=== PATIENT | male | born 1935 | race American Indian/Alaskan Native ===

== ENCOUNTER 2016-07-18 02:29 | Observation (INO) | payer MEDICARE, OTHER ==
[2016-07-18 02:43] VITALS: BMI 29.5
--- NOTE | 2016-07-18 02:54 | ED PDOC ---
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 Patient states he used his Symbicort inhaler at home with minimal relief. Patient denies any fever, chills, nausea, vomiting, diarrhea, urinary symptoms, back pain, neck pain, headache, dizziness, or any other complaints. Symptom Onset: Gradual Symptom Course: Unchanged Activities at Onset: Rest, Light Context: Home Past Medical History - Provider Review Nursing Documentation Reviewed: Yes - Pulmonary Hx Chronic Obstructive Pulmonary Disease (COPD): Yes - Neurological Hx Vertigo: Yes - HEENT Hx HEENT Disorder: No - Renal Hx Renal Disorder: No - Endocrine/Metabolic Hx Hypothyroidism: Yes - Hematological/Oncological Hx Blood Disorders: No - Integumentary Hx Dermatological Disorder: No - Musculoskeletal/Rheumatological Hx Musculoskeletal Disorders: No - Gastrointestinal Hx Gastrointestinal Disorders: No - Genitourinary/Gynecological Hx Prostate Cancer: Yes - Psychiatric Hx Psychophysiologic Disorder: No Hx Substance Use: No Family/Social History - Physician Review Nursing Documentation Reviewed: Yes Family/Social History: No Known Family HX Smoking Status: Never Smoked Hx Alcohol Use: Yes Frequency of alcohol use: Socially Hx Substance Use: No Allergies/Home Meds Allergies/Adverse Reactions: Allergies No Known Allergies Allergy (Verified 07/18/16 02:43) Home Medications: Home Meds Medication Instructions Recorded Confirmed Albuterol 0.083% [Albuterol 0.083% 1 inhaler INH PRN PRN 07/18/16 07/18/16 Inhal Geni (2.5 mg/3 ml) UD] Budesonide/Formoterol Fumarate 1 inhaler IH DAILY 07/18/16 07/18/16 [Symbicort 160-4.5 Mcg Inhaler] Levothyroxine [Levoxyl] 0.125 mg PO DAILY 07/18/16 07/18/16 Simvastatin [Zocor] 40 mg PO DAILY 07/18/16 07/18/16 Review of Systems - Physician Review All systems were reviewed & negative as marked: Yes - Review of Systems Constitutional: Normal. absent: Fevers Eyes: Normal ENT: Normal Respiratory: SOB. absent: Cough Cardiovascular: Chest Pain (+chest tightness) Gastrointestinal: Normal. absent: Abdominal Pain, Diarrhea, Nausea, Vomiting Genitourinary Male: Normal. absent: Dysuria, Frequency, Hematuria, Urinary Output Changes Musculoskeletal: Normal. absent: Back Pain, Neck Pain Skin: Normal. absent: Rash Neurological: Normal. absent: Headache, Dizziness Endocrine: Normal Hemo/Lymphatic: Normal Psychiatric: Normal Physical Exam Vital Signs Reviewed: Yes Vital Signs Temp Pulse Resp BP Pulse Ox 07/18/16 05:26 64 18 132/76 98 07/18/16 02:57 18 99 07/18/16 02:42 97.9 F 78 18 120/77 97 Temperature: Afebrile Blood Pressure: Normal Pulse: Regular Respiratory Rate: Normal Appearance: Positive for: Well-Appearing, Non-Toxic, Comfortable Pain Distress: None Mental Status: Positive for: Alert and Oriented X 3 - Systems Exam Head: Present: Atraumatic, Normocephalic Pupils: Present: PERRL Extroacular Muscles: Present: EOMI Conjunctiva: Present: Normal Mouth: Present: Moist Mucous Membranes Neck: Present: Normal Range of Motion Respiratory/Chest: Present: Decreased Breath Sounds. No: Respiratory Distress, Accessory Muscle Use Cardiovascular: Present: Regular Rate and Rhythm, Normal S1, S2. No: Murmurs Abdomen: Present: Normal Bowel Sounds. No: Tenderness, Distention, Peritoneal Signs Back: Present: Normal Inspection Upper Extremity: Present: Normal Inspection. No: Cyanosis, Edema Lower Extremity: Present: Normal Inspection. No: Edema Neurological: Present: GCS=15, CN II-XII Intact, Speech Normal Skin: Present: Warm, Dry, Normal Color. No: Rashes Psychiatric: Present: Alert, Oriented x 3, Normal Insight, Normal Concentration Medical Decision Making ED Course and Treatment: 07/18/16 02:54 Impression: 80 year old male complaining of shortness of breath and chest tightness. Differential Diagnosis include but are not limited to: COPD vs. pneumonia vs. ACS vs. CHF Plan: -- EKG -- Chest X-ray -- Labs, cardiac enzymes, BNP, blood cultures, VBG -- Duoneb -- Solu-medrol -- Reassess and disposition Progress Notes: Reviewed EKG, NSR at [address] Non-specific ST/T wave changes. 07/18/16 05:20 Reviewed radiology, Chest X-ray shows no acute processes. 07/18/16 05:[address] Sheth, who is aware and agrees with plan. Accepts pt in to her service. Pt will go to [facility] observation for COPD. Pt is no acute distress. Discussed results and hospital observation plan with pt , who is aware and verbalizes understanding. - Lab Interpretations Lab Results: 07/18/16 03:27 07/18/16 03:27 Lab Results 07/18/16 03:27: Sodium 138, Chloride 104, Potassium 3.9, Carbon Dioxide 28, Anion Gap 10, BUN 15, Creatinine 0.6, Est GFR ( Amer) > 60, Est GFR (Non- Af Amer) > 60, Random Glucose 103, Calcium 9.5, Total Bilirubin 0.6, AST 17, ALT 24, Alkaline Phosphatase 130, Lactate Dehydrogenase 436, Total Creatine Kinase 59, Troponin I < 0.01, NT-Pro-B Natriuret Pep 127, Total Protein 7.0, Albumin 3.9, Globulin 3.1, Albumin/Globulin Ratio 1.3 07/18/16 03:27: pO2 197 H, VBG pH 7.40, VBG pCO2 48.0, VBG HCO3 29.7 H, VBG Total CO2 31.2 H, VBG O2 Sat (Calc) 99.0 H, VBG Base Excess 4.0 H, VBG Potassium 3.9, Sodium 137.0, Chloride 109.0 H, Glucose 105, Lactate 1.2, FiO2 21.0, Venous Blood Potassium 3.9 07/18/16 03:27: WBC 6.0, RBC 3.87, Hgb 11.8 L, Hct 35.8 L, MCV 92.5, MCH 30.5, MCHC 33.0, RDW 13.3, Plt Count 144, MPV 12.1 H, Gran % 69.3 H, Lymph % (Auto) 23.3, [place] % (Auto) 7.0 H, Eos % (Auto) 0.2 L, Baso % (Auto) 0.2, Gran # 4.13, Lymph # 1.4, [place] # 0.4, Eos # 0.0, Baso # 0.01 I have reviewed the lab results: Yes - RAD Interpretation Radiology Orders: 07/18/16 03:02 CHEST PORTABLE [RAD] Stat Weight Loss Counselor: ED Physician - EKG Interpretation Interpreted by ED Physician: Yes Type: 12 lead EKG - Medication Orders Current Medication Orders: Acetaminophen (Tylenol 325mg Tab) 650 mg PO Q4H PRN PRN Reason: Pain, Mild (1-3) Albuterol/Ipratropium (Duoneb 3 Mg/0.5 Mg (3 Ml) Ud) 3 ml IH Q4H PRN PRN Reason: Shortness of Breath Levofloxacin/Dextrose (Levaquin 750mg) 750 mg in 150 mls @ 100 mls/hr IVPB STAT STA Stop: 07/18/16 07:07 Last Admin: 07/18/16 06:01 Dose: 100 mls/hr Sodium Chloride (Sodium Chloride 0.9%) 1,000 mls @ 100 mls/hr IV .Q10H STA Stop: 07/18/16 15:44 Discontinued Medications Albuterol/Ipratropium (Duoneb 3 Mg/0.5 Mg (3 Ml) Ud) 3 ml IH Q15M KRYS Stop: 07/18/16 03:46 Last Admin: 07/18/16 03:50 Dose: 3 ml Methylprednisolone (Solu-Medrol) 125 mg IVP ONCE ONE Stop: 07/18/16 03:03 Last Admin: 07/18/16 03:33 Dose: 125 mg - Shortyibsurinder Statement The provider has reviewed the documentation as recorded by the Latisha Ash All medical record entries made by the Latisha were at my direction and personally dictated by me. I have reviewed the chart and agree that the record accurately reflects my personal performance of the history, physical exam, medical decision making, and the department course for this patient. I have also personally directed, reviewed, and agree with the discharge instructions and disposition. Disposition/Present on Arrival - Present on Arrival Any Indicators Present on Arrival: No History of DVT/PE: No History of Uncontrolled Diabetes: No Urinary Catheter: No History of Decub. Ulcer: No History Surgical Site Infection Following: None - Disposition Have Diagnosis and Disposition been Completed?: Yes Diagnosis: Chronic obstructive lung disease Disposition: HOSPITALIZED Disposition Time: 06:00 Condition: FAIR
[2016-07-18] MEDS: Albuterol-Ipratrop 3 mg / 0.5 (3 ml) UD IH SCH ×3 (03:15→03:50)
[2016-07-18 03:35] LABS: ADD MANUAL DIFF? NO
[2016-07-18 03:50] LABS: ALB/GLOB RATIO 1.3 (1.1-1.8); ALKALINE PHOSPHATASE 130 U/L (38-133); ALT/SGPT 24 U/L (7-56); AST/SGOT 17 U/L (15-59); BASO # 0.01 K/mm3 (0.0-2.0); BASO % 0.2 % (0.0-3.0); BILIRUBIN,TOTAL 0.6 mg/dL (0.2-1.3); BLOOD UREA NITROGEN 15 mg/dL (7-21); CALCIUM 9.5 mg/dL (8.4-10.5); CARBON DIOXIDE 28 mmol/L (21-33); CHLORIDE 104 mmol/L (98-107); EOS % 0.2 % (1.5-5.0); GFR AFRICAN-AMERICAN > 60; GLUCOSE,RANDOM 103 mg/dL (70-110); GRAN # 4.13 (1.4-6.5); GRAN % 69.3 % (50.0-68.0); HEMATOCRIT 35.8 % (42.0-52.0); LYMPH # 1.4 (1.2-3.4); LYMPH % 23.3 % (22.0-35.0); MEAN CELL VOLUME 92.5 fL (80.0-105.0); MEAN CORPUSCULAR HEMOGLOBIN 30.5 pg (25.0-35.0); MEAN PLATELET VOLUME 12.1 fl (7.0-11.0); MONO # 0.4 (0.1-0.6); PLATELET COUNT 144 10^3/uL (120.0-450.0); POTASSIUM 3.9 mmol/L (3.6-5.0); RED CELL DISTRIBUTION WIDTH 13.3 % (11.5-14.5); SODIUM 138 mmol/L (132-148)
[2016-07-18 04:22] LABS: TROPONIN I < 0.01 ng/mL
[2016-07-18] MEDS ORDERED: levoFLOXacin 750 mg in D5W 750 MG/150 ML BAG IVPB STA (05:38)
[2016-07-18] MEDS ORDERED: Sodium Chloride 0.9% 1,000 ML IV STA (05:45)
[2016-07-18] MEDS ORDERED: Albuterol-Ipratrop 3 mg / 0.5 (3 ml) UD IH PRN (05:45)
[2016-07-18] MEDS: Levothyroxine 125 MCG TAB PO SCH (08:02)
--- NOTE | 2016-07-18 08:02 | RAD ---
HISTORY: sob COMPARISON: No prior. FINDINGS: LUNGS: There is a large bulla in the right upper lobe. The lungs are otherwise clear PLEURA: No significant pleural effusion identified, no pneumothorax apparent. CARDIOVASCULAR: Normal. OSSEOUS STRUCTURES: No significant abnormalities. VISUALIZED UPPER ABDOMEN: Normal. OTHER FINDINGS: None. IMPRESSION: No active disease.
[2016-07-18] MEDS: MethylPREDNISolone 40 mg Vial IVP SCH ×2 (11:17→22:10)
[2016-07-18] MEDS: Non Formulary Medication (Budesonide/Formoterol Fumarate [Symbicort 160-4.5 Mcg Inhaler] 1 IH SCH (11:18)
[2016-07-18] MEDS: levoFLOXacin 500 mg in D5W 500 MG/100 ML BAG IVPB SCH (11:18)
--- NOTE | 2016-07-18 14:32 | CARD ---
APPROVED REPORT EKG Measurement Heart [id number] <Conclusion> Normal sinus rhythm Left anterior fascicular block Nonspecific T wave abnormality Abnormal ECG
--- NOTE | 2016-07-18 22:34 | CON ---
DATE: 07/18/2016 REFERRING PHYSICIAN: Dr. Sheht. REASON FOR CONSULT: Cough, shortness of breath, exacerbation of chronic lung disease, and sleep apne a syndrome. HISTORY OF PRESENT ILLNESS: This is an 80-year-old gentleman with past medical history significant f or chronic obstructive lung disease, hypothyroidism, hyperlipidemia, history of recurrent vertigo, li ghtheadedness, comes into Emergency Room with cough, shortness of breath, rhinitis. Admitted to have loud snoring at nighttime, daytime sleepy and tired. Received IV and inhaled bronchodilator with so me benefit of persistent symptoms. Now admitted for continued workup. Usually followed at . PAST MEDICAL HISTORY: Obstructive lung disease, hypothyroid, hyperlipidemia, recurrent vertigo, hist ory of prostate cancer. SOCIAL HISTORY: Stopped smoking about a year ago or so. Denied any alcohol use. FAMILY HISTORY: No significant cardiopulmonary disease reported. ALLERGIES: None known. MEDICATIONS: He is on Antivert 12.5 mg 3 times a day p.r.n. Also getting Symbicort 160/4.5 one puff twice a day, DuoNeb q. 4 hours p.r.n., 500 mcg daily, Lipitor 20 mg daily, Pepcid 40 mg daily, Solu-Medrol 40 mg q. 12 hours, Synthroid 125 mg daily, Tylenol p.r.n. basis. REVIEW OF SYSTEMS: Has lightheadedness, rhinitis, cough, shortness of breath. No chest pain, no abd ominal pain, no dysuria. No leg pain or leg swelling. Admits to have snoring, daytime sleepy and ti red. PHYSICAL EXAMINATION: GENERAL: His detailed exam, lying in the bed, mild distress secondary to cough and shortness of fabricio th. VITAL SIGNS: Temp is 98, heart rate is 69, respiratory rate is 18, blood pressure 155/91, pulse ox 9 5% on 2 L nasal cannula. HEENT: Moist mucous membranes. Crowded airway. Mallampati score is 4. NECK: Supple, JVD. LUNGS: Have a prolonged expiratory phase with wheezing. HEART: S1 and S2. ABDOMEN: Soft, nontender. No organomegaly. EXTREMITIES: There is no edema. NEUROLOGIC: Awake, alert, follows simple commands. LABORATORY DATA: Shows hemoglobin 11.8, hematocrit 35.8, WBC 6.0, platelet is 144. VBG shows pH 7.4 0, pCO2 48, O2 197. Sodium 138, potassium 3.9, chloride 104, bicarbonate 28, BUN 15, creatinine 0.6, glucose 103, calcium 9.5, total bili 0.6, AST 17, ALT 24, alk phos is 130. Troponin less than 0.01, proBNP 127, albumin is 3.9. Chest x-ray done today shows no infiltrate or effusion. IMPRESSION AND PLAN: Chronic obstructive lung disease, may have obstructive sleep apnea syndrome, hy pothyroid, hyperlipidemia, hypertension. Case discussed with Dr. Sheth. with IV and inhaled bronchodilator. Gastric prophylaxis and deep vein thrombosis prophylaxis. Need attended sleep stud y. Lightheadedness could be affecting the secondary to sleep apnea syndrome. Will get CT scan of the head without contrast to rule out any central nervous system abnormality. Thank you, and will follow. Christy Bartlett MD cc: [id number] TT: 07/18/2016 22:33:36 Confirmation # [id number] Dictation # [id number] dn
[2016-07-19] MEDS: Levothyroxine 125 MCG TAB PO SCH (06:59)
--- NOTE | 2016-07-19 08:17 | HP ---
CHIEF COMPLAINT: Shortness of breath. HISTORY OF PRESENT ILLNESS: The patient is an 80-year-old male, former smoker, whose past medical history has COPD, hypothyroidism, hypercholesterolemia, asthma, vertigo, came to the Emergency Room Department complaining of shortness of breath associated with chest tightness since yesterday. The patient states that he took his Symbicort inhaler at home with no relief. The patient denies any fever, chills, nausea, vomiting, or diarrhea. no back pain, neck pain, headache, dizziness or any complaints. PAST MEDICAL HISTORY: COPD, hypothyroidism, prostate cancer. FAMILY HISTORY: Father and mother noncontributory. HABITS: Never smoked. Alcohol yes socially. Substance abuse no. ALLERGIES: The patient is not allergic with any medications. HOME MEDICATIONS: Albuterol, Symbicort, Zocor. REVIEW OF SYSTEMS: The patient is seen and examined on the bedside. Looks comfortable. No nausea, vomiting, or diarrhea. No hematuria or hematochezia. No swelling of the leg. No chest pain, no palpitation. Having shortness of breath, coughing and wheezing. PHYSICAL EXAMINATION: VITAL SIGNS: Temperature 97.9, pulse 78, respiratory rate 18, blood pressure 120/77, and pulse oximetry 97. HEENT: Head normocephalic, atraumatic. Eyes: PERRLA. Extraocular muscles intact. Conjunctivae clear. Nose patent. Mucous membranes moist. NECK: Supple. No carotid bruit, JVD or thyromegaly. CHEST: Bilaterally symmetrical. HEART: S1, S2 positive. LUNGS: Clear to auscultation. ABDOMEN: Soft. Bowel sounds present. No organomegaly. EXTREMITIES: No edema, no cyanosis. NEUROLOGIC: The patient is awake, alert, moving all 4 extremities. No focal deficits. LABORATORY DATA: White blood cell 6.0, hemoglobin 11.9, hematocrit 35.8, platelets 144. Sodium 138, potassium 3.9, BUN 15, creatinine 0.9, glucose 103. ASSESSMENT AND PLAN: The patient is an 80-year-old male with anemia, came with exacerbation of chronic obstructive pulmonary disease, asthma, seen by loading manager, Dr. Bartlett. Had a length of time discussion with that. The patient has a history of obstructive lung disease, hypothyroidism, hypercholesterolemia, recurrent vertigo, getting treatment from the hospitalist , history of prostate cancer, obstructive sleep apnea syndrome. Length of time discussion done with Dr. Bartlett and case discussed with the patient, started on inhaled bronchodilators, steroids and gastric prophylaxis. Deep venous thrombosis prophylaxis. We will get CAT scan of the head without contrast to rule out any central nervous system abnormality as per Dr. Bartlett. Gastrointestinal and deep venous thrombosis prophylaxis. Repeat labs. We will follow up. Megan Sheth MD cc: [id number] TT: 07/19/2016 08:17:07 gus MTDOlivier
--- NOTE | 2016-07-19 08:58 | CT ---
PROCEDURE: CT HEAD WITHOUT CONTRAST. HISTORY: persistent headache COMPARISON: None available. TECHNIQUE: Axial computed tomography images were obtained through the head/brain without intravenous contrast. Radiation dose: Total exam DLP = 580.67 mGy-cm. This CT exam was performed using one or more of the following dose reduction techniques: Automated exposure control, adjustment of the mA and/or kV according to patient size, and/or use of iterative reconstruction technique. FINDINGS: HEMORRHAGE: No intracranial hemorrhage. BRAIN: No mass effect or edema. Mild diffuse age-appropriate cerebral atrophy. Mild to moderate periventricular white matter lucency with patchy foci of deep and subcortical white matter lucency, consistent with microvascular white matter ischemic change. VENTRICLES: Unremarkable. No hydrocephalus. CALVARIUM: Unremarkable. PARANASAL SINUSES: Unremarkable as visualized. No significant inflammatory changes. MASTOID AIR CELLS: Unremarkable as visualized. No inflammatory changes. OTHER FINDINGS: None. IMPRESSION: No intracranial mass, hemorrhage or evidence of acute infarct. Age-appropriate involutional change.
[2016-07-19] MEDS: levoFLOXacin 500 mg in D5W 500 MG/100 ML BAG IVPB SCH (10:23)
[2016-07-19] MEDS: Non Formulary Medication (Budesonide/Formoterol Fumarate [Symbicort 160-4.5 Mcg Inhaler] 1 IH SCH (10:23)
[2016-07-19] MEDS: Enoxaparin 40 mg Syringe SC SCH (10:23)
[2016-07-19] MEDS: MethylPREDNISolone 40 mg Vial IVP SCH ×2 (10:24→21:29)
[2016-07-19] MEDS ORDERED: MethylPREDNISolone 40 mg Vial IVP SCH (21:26)
--- NOTE | 2016-07-19 23:54 | PN ---
DATE: 07/19/2016 REFERRING PHYSICIAN: Dr. Sheth. SUBJECTIVE: He is out of bed to chair, night was unremarkable, feels better, decreased cough, decreased shortness of breath, admits to loud snoring and daytime sleepy and tired. No nausea, no vomiting, diarrhea. No leg pain or leg swelling. OBJECTIVE: GENERAL: No acute distress. VITAL SIGNS: Temperature is 98, heart rate is 67, respiratory rate is 20, blood pressure 134/81, pul se ox 100% on nasal cannula. HEENT: Moist mucous membranes. Crowded airway. Mallampati score is 4. NECK: Supple. No JVD. LUNGS: Has a fair airflow with few rhonchi. HEART: S1, S2. ABDOMEN: Soft, nontender. No organomegaly. EXTREMITIES: There is no edema. NEUROLOGIC: Awake, alert, follows simple commands. MEDICATIONS: 12.5 mg 3 times a day, DuoNeb q. 4 hours p.r.n., Levaquin 500 mg daily, Lipitor 2 0 mg daily, Lovenox 40 mg daily, Norvasc 5 mg daily, Pepcid 40 mg daily, Solu-Medrol 20 mg q. 12 hour s, Synthroid 125 mcg daily, Tylenol p.r.n. basis. LABORATORY DATA: Microbiology: Blood cultures have been negative. IMPRESSION AND PLAN: Chronic obstructive lung disease, may have obstructive sleep apnea syndrome, hy pothyroid, hyperlipidemia, hypertension. I spoke to the floor nurse practitioner today. Continue So chiqui-Medrol, antibiotics and bronchodilator. Sleep apnea precaution. Gastric prophylaxis. Deep venou s thrombosis prophylaxis. Discharge planning in the morning. Outpatient attended sleep study and pu lmonary function test. Follow up with Dr. Sheth. Thank you and will follow with you. Christy Bartlett MD cc: [id number] TT: 07/19/2016 23:53:04 Confirmation # [id number] Dictation # [id number] mn
--- NOTE | 2016-07-20 06:23 | PN ---
DATE: 07/19/2016 SUBJECTIVE: The patient was seen and examined on the bedside, looks comfortable. No nausea, vomitin g, or diarrhea. No hematuria or hematochezia. No swelling of the leg. No chest pain, no palpitatio n, no headache, no dizziness. I saw him having dinner, feels comfortable. Cough is getting better. Shortness of breath is getting better. PHYSICAL EXAMINATION: VITAL SIGNS: Temperature is 97.6, pulse 67, respiratory rate 22, blood pressure 134/81. HEENT: Head normocephalic, atraumatic. Eyes: PERRLA. Extraocular muscles intact. Conjunctivae cl ear. Nose patent. Mucous membranes moist. NECK: Supple. No carotid bruit, JVD or thyromegaly. CHEST: Bilaterally symmetrical. HEART: S1, S2 positive. LUNGS: Clear to auscultation. ABDOMEN: Soft. Bowel sounds present. No organomegaly. EXTREMITIES: No edema, no cyanosis. NEUROLOGIC: The patient is awake, alert, moving all 4 extremities. No focal deficits. MEDICATIONS: Antivert, albuterol, Levaquin, Lipitor, Lovenox, Norvasc, famotidine, Solu-Medrol, Synt hroid, Tylenol. LABORATORY DATA: White blood cells 6.0, hemoglobin 11.8, hematocrit 35.8, and platelets 144. Sodium 139, potassium 3.9, BUN 15, creatinine 0.7, AST 17, ALT 24. ASSESSMENT AND PLAN: The patient is an 80-year-old male with anemia, history of obstructive lung dis ease, hypothyroidism, hypercholesterolemia, recurrent vertigo, history of prostate cancer, obesity, c jesus with shortness of breath, started on IV bronchodilators. Gastric prophylaxis, deep vein thrombos is prophylaxis. Discussion done with Dr. Bartlett. The patient is feeling better. We will decrease t he steroids. Gastrointestinal and deep venous thrombosis prophylaxis. Repeat labs. We will follow up. Megan Sheth MD cc: [id number] TT: 07/20/2016 06:22:20 Confirmation # [id number] Dictation # [id number] tn
[2016-07-20 07:19] LABS: CHOLESTEROL 184 mg/dL (130-200)
[2016-07-20] MEDS: Levothyroxine 125 MCG TAB PO SCH (07:43)
[2016-07-20 08:27] VITALS: BP 116/79; PULSE 67; RESP 20; TEMP 97.8; O2SAT 97
[2016-07-20] MEDS ORDERED: MethylPREDNISolone 40 mg Vial IVP SCH (09:03)
[2016-07-20] MEDS: Enoxaparin 40 mg Syringe SC SCH (09:53)
[2016-07-20] MEDS: levoFLOXacin 500 mg in D5W 500 MG/100 ML BAG IVPB SCH (09:56)
[2016-07-20] MEDS: Non Formulary Medication (Budesonide/Formoterol Fumarate [Symbicort 160-4.5 Mcg Inhaler] 1 IH SCH (10:00)
--- NOTE | 2016-07-20 15:49 | PN ---
DATE: 07/20/2016 REFERRING PHYSICIAN: Dr. Sheth. SUBJECTIVE: He is sitting side of the bed, having lunch. Night was unremarkable. Breathing getting better. Decreased shortness of breath and cough. No hemoptysis, no emesis, no hematuria, no diarrh ea reported. Admitted to have loud snoring. Daytime sleepy and tired. OBJECTIVE: GENERAL: No acute distress. VITAL SIGNS: Temp is 98, heart rate is 67, respiratory rate is 20, blood pressure ____/79, pulse ox 97% on nasal cannula. HEENT: Moist mucous membranes. Crowded airway. Mallampati score is 4. NECK: Supple. No JVD. LUNGS: Have fair airflow with a few rhonchi. HEART: S1, S2. ABDOMEN: Soft, nontender. No organomegaly. EXTREMITIES: There is no edema. NEUROLOGIC: Awake, alert, follows simple command. MEDICATIONS: He is on Antivert 12.5 mg 3 times a day, also on DuoNeb q. 6 hours, Levaquin 500 mg emperatriz ly, Lipitor 20 mg daily, Lovenox 40 mg daily, Norvasc 5 mg daily, Pepcid 40 mg at bedtime, Solu-Medro l 20 mg q. 12 hours, Synthroid 125 mcg daily, Tylenol p.r.n. basis. LABORATORY DATA: Reviewed and noted. Hemoglobin A1c 6.6. Cholesterol 184. TSH is 1.52. MICROBIOLOGY: Blood culture has been negative. IMPRESSION AND PLAN: Chronic obstructive lung disease, may have obstructive sleep apnea syndrome, hy pothyroid, hyperlipidemia, hypertension. Discharge planning. May change to Medrol Dosepak, doxycycl ine for another 5 days, p.o. and inhaled bronchodilator. Outpatient PFT and attended sleep study. F all precaution. Christy Bartlett MD cc: [id number] TT: 07/20/2016 15:47:58 Confirmation # [id number] Dictation # [id number] mn
--- NOTE | 2016-07-21 08:03 | DS ---
CHIEF COMPLAINT: Shortness of breath. HISTORY OF PRESENT ILLNESS: The patient, a , an 80-year-old male, former smoker, with past me dical history of COPD, hypothyroidism, hypercholesterolemia, asthma, vertigo, came to the Emergency R o Department complaining of shortness of breath associated with chest tightness since 1 day before admission. The patient stated that he took his Symbicort inhaler at home with no relief. The patien t failed outpatient treatment; that is why he was admitted. Had CAT scan of the head. Seen by pulmo nologist, Dr. Bartlett. Had chest x-ray. Got tapering dose of Solu-Medrol, antibiotics. Got better. Discharged home on 07/20/2016. Will follow up with primary care physician and tool planner. Presc ription of the medications given. PAST MEDICAL HISTORY: COPD, hypothyroidism, prostate cancer. FAMILY HISTORY: Father and mother noncontributory. HABITS: Never smoked. Alcohol use: Socially. Substance abuse: No. ALLERGIES: The patient is not allergic with any medications. HOME MEDICATIONS: Albuterol, Symbicort, and Zocor. REVIEW OF SYSTEMS: The patient is seen and examined on the bedside. Looks comfortable. No nausea, vomiting, or diarrhea. No hematuria or hematochezia. No swelling of the legs. Shortness of breath is better. No headache, no dizziness. No swelling of the legs. No fever, no chills. PHYSICAL EXAMINATION: VITAL SIGNS: Temperature 97.8, pulse 67, blood pressure 115/79, respiratory rate 20. HEENT: Head is normocephalic, atraumatic. Eyes: PERRLA. Extraocular muscles intact. Conjunctivae are clear. Nose patent. Mucous membranes moist. NECK: Supple. No carotid bruit, JVD or thyromegaly. CHEST: Bilaterally symmetrical. HEART: S1, S2 positive. LUNGS: Clear to auscultation. ABDOMEN: Soft. Bowel sounds present. No organomegaly. EXTREMITIES: No edema, no cyanosis. NEUROLOGIC: The patient is awake, alert. Moving all 4 extremities. No focal deficits. MEDICATIONS: Antivert, Symbicort, DuoNeb, Levaquin, Lipitor, Lovenox, Norvasc, Pepcid, Solu-Medrol, Synthroid, Tylenol. LABORATORY DATA: White blood cells 6.0, hemoglobin 11.8, hematocrit 35.8, platelets 144. Sodium 138 , potassium 3.9, BUN 15, creatinine 0.6. Hemoglobin A1c 6.6. HDL 102. ASSESSMENT AND PLAN: The patient is an 80-year-old male with anemia, diabetes mellitus, history of h ypertension, hypercholesterolemia, chronic obstructive pulmonary disease, asthma, obesity, benign pro static hypertrophy, history of dizziness, came with exacerbation of chronic obstructive pulmonary dis ease, sleep apnea syndrome, hypothyroidism, hypercholesterolemia, hypertension. [facility], doxycycline for 5 days, inhaled bronchodilators. Will follow up as outpatient . Prescription of medications given by the nurse practitioner Millie. Appointment for followup in my office and Dr. Bartlett's office given. Megan Sheth MD cc: [id number] TT: 07/21/2016 08:02:34 stephanie
== END 2016-07-20 16:38 | disposition home or self-care (01) ==
LOC: EDBD → ED 02:29 → ERH 05:42 → 3RSO 06:41
PROVIDERS: ADMIT Internal Medicine; ATTEND Internal Medicine
DX: J44.1 Chronic obstructive pulmonary disease with (acute) exacerbation (principal); N40.0 Benign prostatic hyperplasia without lower urinary tract symptoms; I10 Essential (primary) hypertension; G47.33 Obstructive sleep apnea (adult) (pediatric); E78.00 Pure hypercholesterolemia, unspecified; E11.9 Type 2 diabetes mellitus without complications; E03.9 Hypothyroidism, unspecified; E78.5 Hyperlipidemia, unspecified; D64.9 Anemia, unspecified; R42 Dizziness and giddiness; E66.9 Obesity, unspecified; Z68.29 Body mass index [BMI] 29.0-29.9, adult; Z85.46 Personal history of malignant neoplasm of prostate; Z87.891 Personal history of nicotine dependence
CPT/HCPCS: 36415; 70450; 71010; 80053; 80061; 82550; 82803; 83036; 83615; 83880; 84443; 84484; 85025; 87040; 93005; 94640; 96361; 96365; 96372; 96375; 96376; 99285; G0378; J1650; J2920; J2930; J7040

== ENCOUNTER 2016-08-03 10:39 | Inpatient (IN) | payer MEDICARE, OTHER ==
[2016-08-03 10:45] VITALS: BMI 31.6
[2016-08-03] MEDS ORDERED: Sodium Chloride 0.9% 500 ML IV STA (11:27)
--- NOTE | 2016-08-03 11:38 | ED PDOC ---
Arrival/HPI - General Chief Complaint: Shortness Of Breath Time Seen by Provider: 08/03/16 10:54 Historian: Patient - History of Present Illness Narrative History of Present Illness (Text): 08/03/16 11:41 An 80 year old male, whose past medical history includes COPD, hypothyroidism, and prostate cancer presents to the emergency department complaining of dizziness when lying down and shortness of breathing when lying down since last night. Patient notes currently feels dizzy. Patient took Meclizine this morning but still feels dizzy. Patient also reports chest tightness and nasal congestion when lying down. Denies any focal weakness, cough, abdominal pain, nausea, vomiting, dysuria, vision changes or any other complaints at this time. Time/Duration: Other (last night) Symptom Onset: Sudden Symptom Course: Unchanged Activities at Onset: Rest Context: Home Associated Symptoms (Text): nasal congestion and chest tightness Past Medical History - Provider Review Nursing Documentation Reviewed: Yes - Infectious Disease Hx of Infectious Diseases: None - Pulmonary Hx Chronic Obstructive Pulmonary Disease (COPD): Yes - Neurological Hx Vertigo: Yes - HEENT Hx HEENT Disorder: No - Renal Hx Renal Disorder: No - Endocrine/Metabolic Hx Hypothyroidism: Yes - Hematological/Oncological Hx Blood Disorders: No - Integumentary Hx Dermatological Disorder: No - Musculoskeletal/Rheumatological Hx Musculoskeletal Disorders: No - Gastrointestinal Hx Gastrointestinal Disorders: No - Genitourinary/Gynecological Hx Prostate Cancer: Yes - Psychiatric Hx Psychophysiologic Disorder: No Hx Substance Use: No - Anesthesia Hx Anesthesia Reactions: No Hx Malignant Hyperthermia: No Family/Social History - Physician Review Nursing Documentation Reviewed: Yes Family/Social History: No Known Family HX Smoking Status: Current Some Days Smoker Hx Alcohol Use: Yes Frequency of alcohol use: Socially Hx Substance Use: No Allergies/Home Meds Allergies/Adverse Reactions: Allergies No Known Allergies Allergy (Verified 08/03/16 11:34) Home Medications: Home Meds Medication Instructions Recorded Confirmed Albuterol 0.083% [Albuterol 0.083% 1 inhaler INH PRN PRN 07/18/16 08/03/16 Inhal Geni (2.5 mg/3 ml) UD] Budesonide/Formoterol Fumarate 1 inhaler IH DAILY 07/18/16 08/03/16 [Symbicort 160-4.5 Mcg Inhaler] Levothyroxine [Synthroid] 0.125 mg PO DAILY 07/18/16 08/03/16 Simvastatin [Zocor] 40 mg PO DAILY 07/18/16 08/03/16 Abiraterone Acetate [Zytiga] 1,000 mg PO DAILY 08/03/16 08/03/16 Carbamide Peroxide [Ear System] 5 drop OT BID 08/03/16 08/03/16 Docusate Sodium [Colace] 100 mg PO BID 08/03/16 08/03/16 Leuprolide Acetate [Eligard] 1 syr TOP ONCE 08/03/16 08/03/16 Meclizine HCl [Motion Sickness 25 mg PO TID PRN 08/03/16 08/03/16 Relief] Methylprednisolone [Medrol Dose 4 mg PO BID 08/03/16 08/03/16 Pack (21 tabs)] Review of Systems - Physician Review All systems were reviewed & negative as marked: Yes - Review of Systems Constitutional: absent: Fatigue Eyes: absent: Vision Changes ENT: Other (nasal congestion) Respiratory: SOB. absent: Cough Cardiovascular: Other (chest tightness) Gastrointestinal: absent: Abdominal Pain, Nausea, Vomiting Genitourinary Male: absent: Dysuria Neurological: Dizziness Physical Exam Vital Signs Reviewed: Yes Vital Signs Temp Pulse Resp BP Pulse Ox 08/03/16 12:42 65 18 152/89 H 97 08/03/16 10:50 18 08/03/16 10:49 97.8 F 69 18 151/86 H 98 Temperature: Afebrile Blood Pressure: Hypertensive Pulse: Regular Respiratory Rate: Normal Appearance: Positive for: Well-Appearing, Non-Toxic, Comfortable Pain Distress: None Mental Status: Positive for: Alert and Oriented X 3 - Systems Exam Head: Present: Atraumatic, Normocephalic Pupils: Present: PERRL Extroacular Muscles: Present: EOMI Conjunctiva: Present: Normal Ears: Present: Other (R TM is clear; L ear is cerumen impacted) Mouth: Present: Moist Mucous Membranes Pharnyx: Present: Normal. No: ERYTHEMA, EXUDATE, TONSILS ENLARGED Neck: Present: Normal Range of Motion Respiratory/Chest: Present: Clear to Auscultation, Good Air Exchange. No: Respiratory Distress, Accessory Muscle Use Cardiovascular: Present: Regular Rate and Rhythm, Normal S1, S2. No: Murmurs Abdomen: Present: Normal Bowel Sounds. No: Tenderness, Distention, Peritoneal Signs Back: Present: Normal Inspection Upper Extremity: Present: Normal Inspection. No: Cyanosis, Edema Lower Extremity: Present: Normal Inspection. No: Edema Neurological: Present: GCS=15, CN II-XII Intact, Speech Normal, Motor Func Grossly Intact, Normal Cerebellar Funct Skin: Present: Warm, Dry, Normal Color. No: Rashes Psychiatric: Present: Alert, Oriented x 3, Normal Insight, Normal Concentration Medical Decision Making ED Course and Treatment: 08/03/16 11:35 Impression: An 80 year old male with vertigo and shortness of breath. Differential Diagnosis included but are not limited to: vertigo with anxiety vs COPD vs cardiac etiology vs less likely central neuro event Plan: -- EKG -- chest xray -- labs -- Urinalysis -- Ativan, IV fluids -- Reassess and disposition Prior Visits: Notes and results from previous visits were reviewed. Patient last reported to the emergency department on 07/18/16 for evaluation of shortness of breath with associated chest tightness. Patient admitted to [facility] for COPD. Patient was discharged on 07/20/16. Progress Notes: EKG: Ordered, reviewed, and independently interpreted the EKG. Rate : 69 BPM Rhythm : Sinus bradycardia Interpretation : Left axis deviation, normal interval, more pronounced flat T wave lateral compared with EKG from 07/18/16 chest xray: Creator : Shubham An MD 08/03/2016 12:21 IMPRESSION: No active disease. 08/03/16 13:52 Patient with noted history with unremarkable exam. He has a history of vertigo and still feels dizzy despite meclizine. It is possible that his symptoms may be related to feeling anxious from the vertigo, which may be BPV related. However, the patient has mild ekg changes. His lungs are CTA b/L with no tachypnea and normal O2 sat so doubt COPD exacerbation. D-dimer sent given history of CA and recent hospitalization; it was normal. He already had a recent head CT which was unremarkable. He was given a low dose of ativan here and IVF without relief of his dizziness. Given persisting symptoms, the patient will need a neuro eval and MRI of the brain. Given EKG changes and chest tightness, will need eval by cardiology. Will need placement on tele. Case discussed with Dr. Sheth for placement on her service. - Lab Interpretations Lab Results: 08/03/16 11:15 08/03/16 11:15 Lab Results 08/03/16 12:45: Urine Color Yellow, Urine Appearance Clear, Urine pH 6.5, Ur Specific [place] <= 1.005, Urine Protein Negative, Urine Glucose (UA) Negative, Urine Ketones Negative, Urine Blood Negative, Urine Nitrate Negative, Urine Bilirubin Negative, Urine Urobilinogen 0.2, Ur Leukocyte Esterase Trace H, Urine RBC Negative, Urine WBC 0 - 2, Urine Bacteria Trace 08/03/16 11:15: Sodium 138, Potassium 4.0, Chloride 104, Carbon Dioxide 25, Anion Gap 13, BUN 14, Creatinine 0.6, Est GFR ( Amer) > 60, Est GFR (Non- Af Amer) > 60, Random Glucose 110, Calcium 9.5, Magnesium 2.0, Total Bilirubin 0.9, AST 18, ALT 24, Alkaline Phosphatase 124, Lactate Dehydrogenase 494, Total Creatine Kinase 93, Troponin I < 0.01, NT-Pro-B Natriuret Pep 126, Total Protein 7.0, Albumin 4.0, Globulin 3.1, Albumin/Globulin Ratio 1.3, Lipase 98 08/03/16 11:15: PT 10.5, INR 0.97, APTT 24.7, D-Dimer, Quantitative 0.19 08/03/16 11:15: WBC 6.3, RBC 3.79, Hgb 11.5 L, Hct 35.4 L, MCV 93.4, MCH 30.3, MCHC 32.5, RDW 13.6, Plt Count 131, MPV 11.9 H, Gran % 73.2 H, Lymph % (Auto) 19.7 L, [place] % (Auto) 6.7 H, Eos % (Auto) 0.2 L, Baso % (Auto) 0.2, Gran # 4.60 , Lymph # 1.2, [place] # 0.4, Eos # 0.0, Baso # 0.01 I have reviewed the lab results: Yes - RAD Interpretation Radiology Orders: 08/03/16 11:26 CHEST PORTABLE [RAD] Stat - EKG Interpretation Interpreted by ED Physician: Yes Type: 12 lead EKG - Medication Orders Current Medication Orders: Discontinued Medications Aspirin (Aspirin Chewable) 324 mg PO STAT STA Stop: 08/03/16 13:02 Last Admin: 08/03/16 13:09 Dose: 324 mg Sodium Chloride (Sodium Chloride 0.9%) 500 mls @ 250 mls/hr IV .Q2H STA Stop: 08/03/16 13:26 Last Admin: 08/03/16 11:48 Dose: 250 mls/hr Ipratropium Weaver (Atrovent) 0.5 mg IH STAT STA Stop: 08/03/16 13:26 Levalbuterol HCl (Xopenex) 1.25 mg IH STAT STA Stop: 08/03/16 13:26 Lorazepam (Ativan) 0.5 mg IVP ONCE STA PRN Reason: Protocol Stop: 08/03/16 11:29 Last Admin: 08/03/16 11:53 Dose: 0.5 mg - Scribe Statement The provider has reviewed the documentation as recorded by the Latisha Somers Provider Scribe Attestation: All medical record entries made by the Latisha were at my direction and personally dictated by me. I have reviewed the chart and agree that the record accurately reflects my personal performance of the history, physical exam, medical decision making, and the department course for this patient. I have also personally directed, reviewed, and agree with the discharge instructions and disposition. Disposition/Present on Arrival - Present on Arrival Any Indicators Present on Arrival: No History of DVT/PE: No History of Uncontrolled Diabetes: No Urinary Catheter: No History of Decub. Ulcer: No History Surgical Site Infection Following: None - Disposition Have Diagnosis and Disposition been Completed?: Yes Diagnosis: Dizziness, Chest tightness Disposition: HOSPITALIZED Disposition Time: 12:45 Patient Plan: Observation, Telemetry Patient Problems: Current Active Problems Problem Status Onset Chest tightness Acute Dizziness Acute Condition: FAIR
[2016-08-03 11:48] LABS: ADD MANUAL DIFF? NO
[2016-08-03 11:51] LABS: BASO # 0.01 K/mm3 (0.0-2.0); BASO % 0.2 % (0.0-3.0); EOS % 0.2 % (1.5-5.0); GRAN % 73.2 % (50.0-68.0); HEMATOCRIT 35.4 % (42.0-52.0); LYMPH # 1.2 (1.2-3.4); LYMPH % 19.7 % (22.0-35.0); MEAN CELL VOLUME 93.4 fL (80.0-105.0); MEAN CORPUSCULAR HEMOGLOBIN 30.3 pg (25.0-35.0); MEAN CORPUSCULAR HGB CONC 32.5 g/dl (31.0-37.0); MEAN PLATELET VOLUME 11.9 fl (7.0-11.0); MONO # 0.4 (0.1-0.6); MONO % 6.7 % (1.0-6.0); PLATELET COUNT 131 10^3/uL (120.0-450.0); RED CELL DISTRIBUTION WIDTH 13.6 % (11.5-14.5); WHITE BLOOD COUNT 6.3 10^3/ul (4.5-11.0)
[2016-08-03 12:00] LABS: ALB/GLOB RATIO 1.3 (1.1-1.8); ALKALINE PHOSPHATASE 124 U/L (38-133); ALT/SGPT 24 U/L (7-56); AST/SGOT 18 U/L (15-59); BILIRUBIN,TOTAL 0.9 mg/dL (0.2-1.3); BLOOD UREA NITROGEN 14 mg/dL (7-21); CALCIUM 9.5 mg/dL (8.4-10.5); CARBON DIOXIDE 25 mmol/L (21-33); CHLORIDE 104 mmol/L (98-107); GFR AFRICAN-AMERICAN > 60; GLUCOSE,RANDOM 110 mg/dL (70-110); LIPASE 98 U/L (23-300); SODIUM 138 mmol/L (132-148)
[2016-08-03 12:06] LABS: INR 0.97 (0.93-1.08); PARTIAL THROMBOPLASTIN TIME 24.7 Seconds (23.7-30.8)
[2016-08-03 12:09] LABS: D DIMER 0.19 mg/L FEU (0-0.50)
--- NOTE | 2016-08-03 12:18 | RAD ---
HISTORY: sob COMPARISON: 07/18/2016 FINDINGS: LUNGS: Emphysematous changes are seen in both upper lobes PLEURA: No significant pleural effusion identified, no pneumothorax apparent. CARDIOVASCULAR: Normal. OSSEOUS STRUCTURES: No significant abnormalities. VISUALIZED UPPER ABDOMEN: Normal. OTHER FINDINGS: None. IMPRESSION: No active disease.
[2016-08-03 12:27] LABS: TROPONIN I < 0.01 ng/mL
[2016-08-03 12:49] LABS: PH,URINE 6.5 (4.7-8.0); URINE BILIRUBIN NEGATIVE (NEGATIVE); URINE BLOOD NEGATIVE (NEGATIVE); URINE GLUCOSE (UA) NEGATIVE (NEGATIVE); URINE KETONE NEGATIVE (NEGATIVE); URINE LEUKOCYTE ESTERASE TRACE Leu/uL (NEGATIVE); URINE PROTEIN NEGATIVE mg/dL (<30 mg/dL); URINE UROBILINOGEN 0.2 E.U./dL (<1 E.U./dL)
[2016-08-03 12:50] LABS: URINE APPEARANCE CLEAR (CLEAR); URINE COLOR YELLOW (YELLOW)
[2016-08-03 12:59] LABS: URINE BACTERIA TRACE (NEG); URINE RBC NEGATIVE /hpf (0-2); URINE WBC 0 - 2 /hpf (0-6)
[2016-08-03] MEDS ORDERED: Ipratropium 0.02% Inhal Soln (0.5 mg/2.5 ml) UD IH STA (13:25)
[2016-08-03] MEDS ORDERED: Levalbuterol 1.25 MG/3 ML Inhal Soln UD IH STA (13:25)
[2016-08-03] MEDS ORDERED: Albuterol 0.083% Inhal Sol (2.5 mg/3 mL) UD INH PRN (15:21)
[2016-08-03] MEDS: LEUPROLIDE ACETATE TOP SCH (15:36)
[2016-08-03] MEDS ORDERED: Pneumococcal 23-Valent Vaccine IM ONE (16:29)
[2016-08-03] MEDS: Levothyroxine 125 MCG TAB PO SCH (17:00)
[2016-08-03] MEDS: MethylPREDNISolone 40 mg Vial IVP SCH ×2 (17:28→22:08)
--- NOTE | 2016-08-03 19:05 | CON ---
DATE: 08/03/2016 REFERRING PHYSICIAN: Dr. Sheth. REASON FOR CONSULT: Cough, shortness of breath, may have sleep apnea syndrome. HISTORY OF PRESENT ILLNESS: This is an 80-year-old male with known chronic obstructive lung disease, hypothyroid, history of prostate cancer, suspected sleep apnea syndrome, comes in to the Emergency R oom because of orthopnea, shortness of breath and cough. No nausea, no vomiting, no diarrhea. No le g pain or leg swelling. PAST MEDICAL HISTORY: Chronic obstructive lung disease, hypothyroid, history of prostate cancer, liv pected sleep apnea syndrome. SOCIAL HISTORY: Recently stopped smoking. Denied any alcohol use. FAMILY HISTORY: No significant cardiopulmonary disease reported. ALLERGIES: None known. MEDICATIONS: He received aspirin 81 and a nebulizer treatment in the ER. Per patient he had been on Zocor, Medrol Dosepak, Miacalcin, Synthroid, Leuprolide, Colace, Symbicort inhaler. REVIEW OF SYSTEMS: Has dizzy spells, short of breath, orthopnea and cough, but no sputum production. No fever. No chest pain. No dysuria. No leg pain or leg swelling. PHYSICAL EXAMINATION: GENERAL: He is lying in the bed, head at 35 degrees, short of breath. VITAL SIGNS: Temp is 98, heart rate 65, respiratory rate is 18, blood pressure 152/89, pulse ox 97% on room air. HEENT: Moist mucous membranes. Crowded airway. Mallampati score is 4. NECK: Supple. No JVD. LUNGS: Has a prolonged expiratory phase. HEART: S1 and S2. ABDOMEN: Soft, nontender. No organomegaly. EXTREMITIES: There is no edema. NEUROLOGIC: Awake, alert, follows simple commands. LABORATORY DATA: Shows hemoglobin 11.5, hematocrit 35.4, WBC 6.3, platelet is 131. INR is 0.97. PT T is 25. Sodium 138, potassium 4.0, chloride 104, bicarbonate 25, BUN 14, creatinine 0.6, glucose 11 0, calcium is 9.5, magnesium is 2.0, AST 18, ALT 24, alkaline phosphatase is 124. LDH is 494. Tropo adrian is less than 0.01. Albumin 4.0. Lipase is 98. TSH is 1.52. Chest x-ray done in the ER shows n o infiltrate or effusion. IMPRESSION AND PLAN: Chronic obstructive lung disease, may have obstructive sleep apnea syndrome, hy pothyroid, hyperlipidemia, hypertension. Will add IV and inhaled bronchodilator, p.o. antibiotics. Gastric prophylaxis, DVT prophylaxis. Had a CAT scan done last admission that was unremarkable. Marcel gaston repeat another CAT scan to assure there is no subacute stroke. Awaiting for sleep study as an outp atient. Will get echocardiogram to assess RV and LV function. Thank you and will follow with you. Christy Bartlett MD cc: [id number] TT: 08/03/2016 19:04:36 Confirmation # [id number] Dictation # [id number] dn
--- NOTE | 2016-08-03 19:16 | US ---
HISTORY: Leg pain and swelling. Evaluate for DVT PHYSICIAN(S): Donte Haney MD. TECHNIQUE: Duplex sonography and color-flow Doppler with graded compression were used to evaluate the deep venous systems of both lower extremities. FINDINGS: The visualized deep venous systems of both lower extremities are sonographically normal and compressible. Normal wave forms and augmentation are seen. There is no sonographic evidence for deep venous thrombosis in the visualized segments of both lower extremities. IMPRESSION: No sonographic evidence for deep venous thrombosis in the visualized segments of both lower extremities.
[2016-08-03] MEDS: Arformoterol 15 mcg/2 ml Inh Sol IH SCH (19:31)
[2016-08-03] MEDS: Budesonide 0.5 mg/2 ml Inhal Susp UD IH SCH (19:31)
--- NOTE | 2016-08-03 19:37 | CON ---
DATE: 08/03/2016 HISTORY OF PRESENT ILLNESS: This is an 80-year-old male with past medical history of COPD, hypothyro idism, prostate cancer, came to the Emergency Room complaining of dizziness and vertigo. Now while i n the bed, he is feeling okay and only gets dizzy when he moves and also complained of chest tightnes s and nasal congestion and denies any abdominal pain, nausea, vomiting. I was called to evaluate the patient. PAST MEDICAL HISTORY: COPD, hypothyroidism, prostate cancer and dizziness. REVIEW OF SYSTEMS: A 10-point review of system was negative. ALLERGIES: No known drug allergy. HOME MEDICATIONS: Synthroid, Zocor and also the patient was on medication methylprednisone. PHYSICAL EXAMINATION: VITAL SIGNS: Blood pressure was 151/86. HEENT: Normocephalic, atraumatic. NECK: Supple. NEUROLOGIC: Alert, awake, oriented x 3. No aphasia. Cranial nerves II through XII were tested. Pu pils reactive. EOM intact. Visual renae full. No facial asymmetry. Tongue midline. Motor examin ation: Moves all the extremities spontaneously. Deep tendon reflexes 1+. Both plantars are downgoi ng. Sensory appears intact. Cerebellar gait deferred. IMPRESSION AND PLAN: Vertigo, possibly vertebrobasilar ischemia versus benign positional. CAT scan of the head is ordered. We will give him meclizine 1 p.o. q. 8 hours, 25 mg. Gustavo Rivera MD cc: [id number] TT: 08/03/2016 19:36:42 Confirmation # [id number] Dictation # [id number] mn
[2016-08-04] MEDS: MethylPREDNISolone 40 mg Vial IVP SCH ×3 (05:59→21:22)
[2016-08-04] MEDS: Pantoprazole 40 mg EC Tab PO SCH ×3 (05:59→06:44)
[2016-08-04] MEDS: Budesonide 0.5 mg/2 ml Inhal Susp UD IH SCH ×2 (07:48→19:34)
[2016-08-04] MEDS: Arformoterol 15 mcg/2 ml Inh Sol IH SCH ×2 (07:48→19:34)
--- NOTE | 2016-08-04 08:01 | CT ---
PROCEDURE: CT HEAD WITHOUT CONTRAST. HISTORY: Dizziness COMPARISON: 07/19/2016 TECHNIQUE: Axial computed tomography images were obtained through the head/brain without intravenous contrast. Radiation dose: Total exam DLP = 689.63 mGy-cm. This CT exam was performed using one or more of the following dose reduction techniques: Automated exposure control, adjustment of the mA and/or kV according to patient size, and/or use of iterative reconstruction technique. FINDINGS: HEMORRHAGE: No intracranial hemorrhage. BRAIN: There are moderate chronic microangiopathic changes. There is no mass, mass effect or abnormal extra-axial fluid collection VENTRICLES: There is mild age-related global parenchymal volume loss and proportionate enlargement of the ventricles and cortical sulci with frontal predominance. CALVARIUM: The skull base and calvarium are normal. PARANASAL SINUSES: Predominantly clear. MASTOID AIR CELLS: Predominantly clear OTHER FINDINGS: None. IMPRESSION: No acute intracranial abnormality. Moderate chronic microangiopathic changes. Mild age-related global parenchymal volume loss with frontal predominance.
--- NOTE | 2016-08-04 08:17 | HP ---
CHIEF COMPLAINT: Shortness of breath. HISTORY OF PRESENT ILLNESS: The patient is an 80-year-old male with past medical history of COPD, hy pothyroidism, prostate cancer, came to the Emergency Department complaining of dizziness when lying d own and shortness of breath while lying down since last night, the patient noticed. Currently, feeli ng dizzy. The patient took meclizine, this morning was still feeling dizzy. The patient also report s, chest tightness and nasal congestion when lying down. Denies any focal weakness. No fever, no ch ills, no nausea, vomiting, or diarrhea. No hematuria or hematochezia. No swelling of the leg. PAST MEDICAL HISTORY: COPD, vertigo, hypothyroidism, prostate cancer. FAMILY HISTORY: Father and mother noncontributory. HABITS: Alcohol yes socially. Substance abuse no. Smoking current some days smoker off and on. ALLERGIES: The patient is not allergic with any medications. HOME MEDICATIONS: Albuterol, Symbicort, levothyroxine, Zocor, Colace, meclizine, methylprednisone. REVIEW OF SYSTEMS: The patient is seen and examined on the bedside in the ER. Still complaining abo ut dizziness, lightheadedness, shortness of breath. No cough. No visual changes. Has nasal congest ion and sometimes chest tightness. No abdominal pain, nausea, vomiting, or diarrhea. No dysuria. Still feeling dizzy. PHYSICAL EXAMINATION: VITAL SIGNS: Temperature 98.6, pulse 65, respiratory rate 18, blood pressure 150/89. HEENT: Head normocephalic, atraumatic. Eyes: PERRLA. Extraocular muscles intact. Conjunctivae cl ear. Nose patent. Mucous membranes moist. NECK: Supple. No carotid bruit, JVD or thyromegaly. CHEST: Bilaterally symmetrical. HEART: S1, S2 positive. LUNGS: Clear to auscultation. ABDOMEN: Soft. Bowel sounds present. No organomegaly. EXTREMITIES: No edema, no cyanosis. NEUROLOGIC: The patient is awake, alert, moving all 4 extremities. No focal deficit. LABORATORY DATA: White blood 6.3, hemoglobin 11.5, hematocrit 35.4, platelets 131. Sodium 132, pota ssium 4.0, BUN 14, creatinine 0.6, glucose 110. ASSESSMENT AND PLAN: The patient is an 80-year-old male with anemia, history of prostate cancer, has chronic obstructive lung disease, hypothyroidism, history of sleep apnea syndrome, hypercholesterole kassidy. Dr. Bartlett saw the patient, added inhaled bronchodilators. Gastric prophylaxis, deep venous th rombosis prophylaxis. Had CAT scan of the head. We will get echocardiography to assess the right ve ntricle and left ventricular function. Appreciated Dr. Bartlett's input. The patient is seen by Dr. Cheri Rivera also. Last admission, the patient had chronic obstructive pulmonary disease exacerbation . According to neurologist, the patient has vertigo, possibly vestibular basilar ischemia versus neo ign positional. He ordered a CAT scan of the head and started on meclizine. Extremity ultrasound is done by Dr. Donte Haney. No sonographic evidence of deep vein thrombosis in the visualized segments of both lower extremities. Discussion done with Emergency Room physician. Chest x-ray reviewed. G astrointestinal and deep venous thrombosis prophylaxis. We will follow up. Megan Sheth MD cc: [id number] TT: 08/04/2016 08:16:16 tn
[2016-08-04] MEDS: Levothyroxine 125 MCG TAB PO SCH (09:30)
[2016-08-04] MEDS: Enoxaparin 40 mg Syringe SC SCH (09:30)
[2016-08-04] MEDS: ABIRATERONE ACETATE 1000 MG PO SCH (09:51)
[2016-08-04 11:21] LABS: TROPONIN I < 0.01 ng/mL
--- NOTE | 2016-08-04 13:15 | CARD ---
APPROVED REPORT EXAM: Two-dimensional and M-mode echocardiogram with Doppler and color Doppler. INDICATION Congestive Heart Failure 2D DIMENSIONS Left Atrium (2D)3.2 (1.6-4.0cm)IVSd1.1 (0.7-1.1cm) LVDd4.7 (3.9-5.9cm)PWd1.1 (0.7-1.1cm) LVDs2.9 (2.5-4.0cm)FS (%) 38.5 % LVEF (%)68.6 (>50%) M-Mode DIMENSIONS Aortic Root3.30 (2.2-3.7cm)Aortic Cusp Exc.1.30 (1.5-2.0cm) Aortic Valve AoV Peak Hphheevx444.0cm/Gerard Peak GR.10mmHg Mitral Valve MV E Inznragv36.3cm/sMV A Rkcrzuek72.5cm/sE/A ratio0.9 TDI E/Lateral E'0.0E/Medial E'0.0 Tricuspid Valve TR Peak Lcxpnheg084ea/sRAP [id number] Peak Gr.30mmHg [id number] LEFT VENTRICLE The left ventricle is normal size. There is normal left ventricular wall thickness. The left ventricular function is normal. The left ventricular ejection fraction is within the normal range. There is normal LV segmental wall motion. Transmitral Doppler flow pattern is Grade I-abnormal relaxation pattern. RIGHT VENTRICLE The right ventricle is normal size. There is normal right ventricular wall thickness. The right ventricular systolic function is normal. ATRIA The left atrium size is normal. The right atrium size is normal. AORTIC VALVE The aortic valve is mildly thickened. No aortic regurgitation is present. MITRAL VALVE The mitral valve is mildly thickened. Mitral regurgitation is trace. TRICUSPID VALVE There is mild pulmonary hypertension. There is mild tricuspid regurgitation. PULMONIC VALVE There is mild pulmonic valvular regurgitation. GREAT VESSELS The aortic root is normal in size. The IVC is normal in size and collapses >50% with inspiration. PERICARDIAL EFFUSION There is a trace loculated anterior pericardial effusion. <Conclusion> The left ventricle is normal size. There is normal left ventricular wall thickness. The left ventricular function is normal. The left ventricular ejection fraction is within the normal range. There is normal LV segmental wall motion. Transmitral Doppler flow pattern is Grade I-abnormal relaxation pattern. There is mild pulmonary hypertension.
[2016-08-04 15:08] LABS: CHOLESTEROL 255 mg/dL (130-200)
[2016-08-04] MEDS: LEUPROLIDE ACETATE TOP SCH (15:54)
--- NOTE | 2016-08-04 17:34 | CON ---
DATE: 08/04/2016 REASON FOR CONSULTATION: Dizziness. HISTORY OF PRESENT ILLNESS: The patient is an 80-year-old , who fought in the [place], who has a history of vertigo, history of hypothyroidism, prostatic cancer and COPD. The patient is seen and followed in the [facility] and underwent complete workup for vertigo, for brain MRI and t he patient was placed on meclizine. The patient came in because of episodes of vertigo where he at t imes gets a sense of spinning of the environment around him. He denies any associated nausea or vomi ting. The patient denies any palpitation, chest pain or shortness of breath. The patient stated juan manuel t he underwent cardiac catheterization many years ago, but required no coronary intervention. SOCIAL HISTORY: Nonsmoker. MEDICATIONS: Albuterol inhaler q. 6 hours, Antivert 25 mg t.i.d., Brovana 50 mcg inhalation q. 12 ho urs, Colace 100 mg twice a day, Lipitor 20 mg once a day, Lovenox 40 mg subcutaneous once a day, Solu -Medrol 40 mg intravenously q. 6 hours, Synthroid 125 mcg once a day. REVIEW OF SYSTEMS: No nausea or vomiting, no fever or chills. No productive cough. No palpitation and no diaphoresis. PHYSICAL EXAMINATION: GENERAL: The patient is an elderly male who does not appear to be in any distress. VITAL SIGNS: Blood pressure of 144/80, heart rate 68, temperature 97.8, respirations 20. HEENT: Normocephalic. NECK: No JVD. CHEST: Clear. HEART: S1, S2 regular. EXTREMITIES: No edema. LABORATORIES: Hemoglobin and hematocrit 11.5 and 35.4. White count and platelet count are within no rmal limits. SMA-7 is entirely within normal limits. Two sets of troponins are negative. Lipase is within normal limits. PT, PTT and D-dimer are within normal limits. Head CT scan without contrast: No acute findings, moderate chronic microangiopathic changes. Venous Doppler of the lower extremit ies: No sonographic evidence of DVT in the visualized segments. EKG revealed sinus rhythm, left axis deviation, nonspecific T-wave changes. ASSESSMENT: 1. Vertigo. 2. Chronic obstructive lung disease. 3. Hypothyroidism. 4. Abnormal EKG with nonspecific T-wave changes. RECOMMENDATIONS: Continue Synthroid at 25 mcg once a day, Solu-Medrol 40 mg intravenously q. 8 hours , subcutaneous Lovenox 40 mg once a day, Lipitor 20 mg once a day, Brovana at 15 mcg inhalation q. 12 hours, Antivert 25 mg t.i.d., albuterol inhaler q. 6 hours p.r.n. I will review the echocardiographi c study performed today. Sunny Evangelista MD cc: [id number] TT: 08/04/2016 17:33:28 Confirmation # [id number] Dictation # [id number]
--- NOTE | 2016-08-04 17:46 | CON ---
DATE: 08/04/2016 CHIEF COMPLAINT: Follow up for dizziness. SUBJECTIVE: The patient seen and examined at bedside. He says dizziness is slightly better. His di zziness is more of a vertigo, positional type. CAT scan showed no acute intracranial abnormality. T his is not vertebrobasilar insufficiency at all. PAST MEDICAL HISTORY: Chronic vertigo, COPD, hypothyroidism, prostate cancer. FAMILY HISTORY: Noncontributory. SOCIAL HISTORY: No illicit drug use, smoking, or ETOH abuse. ALLERGIES: No known drug allergies. CURRENT MEDICATIONS: Reviewed via nurses reconciliation sheet. REVIEW OF SYSTEMS: A 14-point review of systems negative except as in the HPI. PHYSICAL EXAMINATION: VITAL SIGNS: Temperature 98, pulse rate 75, blood pressure 143/80, respiratory rate 19, oxygen 100% on room air. GENERAL: The patient is sitting up in bed in no acute distress. HEENT: Atraumatic, normocephalic. PERRLA. Extraocular movements intact. NECK: Supple, no JVD, no adenopathy noted. LUNGS: Clear to auscultation. No adventitious sounds. HEART: S1, S2, normal rate and rhythm. No murmurs, rubs, or gallops. ABDOMEN: Soft, nontender, nondistended. Bowel sounds present. EXTREMITIES: No clubbing, no cyanosis. Peripheral pulses 2+ felt bilaterally. NEUROLOGIC: The patient is alert, oriented to person, place, month and year. Speech is fluent, with out any errors. Recall after 5 minutes is 1/3. Poor attention span. Slow thought process. Cranial nerves II through XII are intact. MOTOR: Moves all extremities equally. No pronator drift seen. Tone is normal. SENSORY: Decreased light touch and pinprick up to the calves bilaterally and decreased vibration of the toes. DTRs are 2+ throughout and 1 at the ankles. COORDINATION: Psflpd-vs-wmrg intact. No tremors noted. Gait is deferred for now. LABORATORY DATA: Cholesterol 255. LDL is 110 and HDL is 138. ASSESSMENT AND PLAN: This is an 80-year-old man with history of anemia, history of prostate cancer, history of chronic obstructive lung disease, hypothyroidism, history of sleep apnea syndrome, hyperch olesterolemia, was consulted for dizziness in terms of spinning sensation of the room and from gettin g up from sitting to standing position without any drop in blood pressures. This is most likely a po sitional vertigo rather than with vestibular basilar insufficiency and CT head showed no acute intrac ranial abnormalities. AT THIS TIME, RECOMMEND: 1. Outpatient vestibular therapy. 2. Aspirin 81 mg and Lipitor 20 mg p.o. daily for stroke prevention. 3. Levothyroxine 125 mcg for his underlying hypothyroidism. 4. Antivert 25 mg p.o. t.i.d. for vertigo. 5. Reduce salt in his diet and avoid sudden movements. At this time he is clinically stable, will sign off. Eladio Rivera MD cc: [id number] TT: 08/04/2016 17:45:34 Confirmation # [id number] Dictation # [id number] jn
--- NOTE | 2016-08-04 18:40 | PN ---
DATE: 08/04/2016 REFERRING PHYSICIAN: Dr. Sheth. SUBJECTIVE: He is lying in the bed, feels a little better. No headache, no rhinitis, decreased coug h. No nausea, no vomiting, diarrhea, leg pain or leg swelling. OBJECTIVE: GENERAL: No acute distress. VITAL SIGNS: Temperature is 98, heart rate is 72, respiratory rate is 19, blood pressure 143/80. HEENT: Moist mucous membrane. Crowded airway. Mallampati score is 4. NECK: Supple. No JVD. LUNGS: Has better airflow. HEART: S1, S2. ABDOMEN: Soft, nontender. No organomegaly. EXTREMITIES: There is no edema. NEUROLOGIC: Awake, alert, follows simple commands. MEDICATIONS: He is on Zytiga 100 mg daily, it is a non-formulary. Also getting albuterol-Atrovent n ebulizer q. 6 hours p.r.n., Antivert 25 mg 3 times a day, Brovana 15 mcg inhaled twice a day around t he clock, Colace 100 mg twice a day, Ecotrin 81 mg daily. Also getting Eligard which is non-formular y, Lipitor 20 mg daily, Lovenox 40 mg daily, Protonix 40 mg daily, Pulmicort inhaled twice a day, Geni u-Medrol 40 mg q. 8 hours, Synthroid 125 mcg daily. LABORATORY DATA: Shows cholesterol is 255, lipase 98, triglyceride is 57. CAT scan of the head was unremarkable for new findings. Echocardiogram shows LVH with mild pulmonary hypertension. Venous Do ppler of lower extremity is negative for DVT. IMPRESSION AND PLAN: Chronic obstructive lung disease, may have obstructive sleep apnea syndrome, mi ld pulmonary hypertension, hypothyroid, hyperlipidemia, hypertension, recurrent dizzy spell. We will decrease Solu-Medrol to 20 q. 12 hours. Gastric prophylaxis, deep venous thrombosis prophylaxis. T he patient is already scheduled for sleep study tomorrow night. He will be discharged home. He will go for study. Will need PFT as the outpatient. Thank you and will follow with you. Christy Bartlett MD cc: [id number] TT: 08/04/2016 18:39:49 Confirmation # [id number] Dictation # [id number] rn
--- NOTE | 2016-08-04 23:29 | CARD ---
APPROVED REPORT EKG Measurement Heart [id number] <Conclusion> Sinus bradycardia Left axis deviation Minimal voltage criteria for LVH, may be normal variant Nonspecific T wave abnormality Abnormal ECG
[2016-08-05] MEDS: Pantoprazole 40 mg EC Tab PO SCH (05:17)
[2016-08-05 05:38] VITALS: O2SAT 100
[2016-08-05 07:07] LABS: HEMATOCRIT 35.1 % (42.0-52.0); MEAN CELL VOLUME 92.9 fL (80.0-105.0); MEAN CORPUSCULAR HEMOGLOBIN 29.9 pg (25.0-35.0); MEAN CORPUSCULAR HGB CONC 32.2 g/dl (31.0-37.0); RED CELL DISTRIBUTION WIDTH 13.3 % (11.5-14.5); WHITE BLOOD COUNT 11.4 10^3/ul (4.5-11.0)
[2016-08-05 07:14] LABS: BLOOD UREA NITROGEN 20 mg/dL (7-21); CALCIUM 9.7 mg/dL (8.4-10.5); CARBON DIOXIDE 32 mmol/L (21-33); CHLORIDE 99 mmol/L (98-107); CHOLESTEROL 219 mg/dL (130-200); GFR AFRICAN-AMERICAN > 60; GLUCOSE,RANDOM 169 mg/dL (70-110); POTASSIUM 4.3 mmol/L (3.6-5.0); SODIUM 137 mmol/L (132-148)
--- NOTE | 2016-08-05 07:35 | PN ---
DATE: 08/04/2016 SUBJECTIVE: The patient was seen and examined on the bedside, sitting on the bedside. No rhinitis. Cough is better. Shortness of breath is better. Dizziness is still the same. No fever, no chills. No nausea, vomiting, or diarrhea. No hematuria or hematochezia. No swelling of the legs. No ches t pain or palpitation. PHYSICAL EXAMINATION: VITAL SIGNS: Temperature 98, heart rate 72, respirations 19, blood pressure 143/80. HEENT: Head is normocephalic, atraumatic. Eyes: PERRLA. Extraocular muscles intact. Conjunctivae are clear. Nose patent. Mucous membranes moist. NECK: Supple. No carotid bruit, JVD or thyromegaly. CHEST: Bilaterally symmetrical. HEART: S1, S2 positive. LUNGS: Have better airflow. ABDOMEN: Soft, nontender. No organomegaly. EXTREMITIES: No edema, no cyanosis. NEUROLOGIC: The patient is awake, alert, follows simple commands. MEDICATIONS: Albuterol, Antivert, Brovana, Colace, Ecotrin, Eligard, Lipitor, Lovenox, Protonix, Pul micort, Solu-Medrol, Synthroid. LABORATORY DATA: Cholesterol 255, lipase 98, triglycerides 57. ASSESSMENT AND PLAN: The patient is an 80-year-old male with chronic obstructive lung disease, obstr uctive sleep apnea syndrome, had echocardiographic done that shows left ventricular hypertrophy with mild pulmonary hypertension. Venous Doppler of lower extremities is negative for deep venous thrombo sis. Mild pulmonary hypertension, hypothyroidism, hypercholesterolemia, hypertension, recurrent dizz iness spell, shortness of breath. Getting a tapering dose of steroids. GI and DVT prophylaxis. Rep eat labs. Will follow up. The patient is seen by the hosiery operator/Dr. Bartlett. Went for a CAT scan of the head. It shows no acute intracranial abnormalities, moderate chronic microvascular changes a nd mild age-related global parenchymal volume loss with frontal predominance. Seen by neurologist/Dr Vannesa Rivera. History of vertigo, history of prostate cancer, history of anemia. Still having di zziness, spinning sensation of the room when from getting up from sitting to standing. The patient w ithout any drop in blood pressure, most likely positional vertigo rather than vestibular basilar insu fficiency. According to Dr. Rivera, the patient needs outpatient vestibular therapy, continue aspiri n, Lovenox, Antivert. Reduce the salt in his diet. I reviewed Dr. Evangelista's, the mds coordinator's, input also. The patient has abnormal EKG with nonspecific T-wave changes. PLAN: Continue Synthroid, Lipitor, Antivert. The patient went for echocardiography today, read by Olivier Evangelista and reviewed by me. Put consult with Dr. López; waiting for the result. Will follow up . Megan Sheth MD cc: [id number] TT: 08/05/2016 07:34:21 Confirmation # [id number] Dictation # [id number] mn
[2016-08-05] MEDS: Budesonide 0.5 mg/2 ml Inhal Susp UD IH SCH (07:52)
[2016-08-05] MEDS: Arformoterol 15 mcg/2 ml Inh Sol IH SCH (07:52)
[2016-08-05 07:55] LABS: IRON 48 ug/dL (45-180)
--- NOTE | 2016-08-05 08:18 | CON ---
DATE: 08/04/2016 REASON FOR CONSULTATION: Vertigo. HISTORY OF PRESENT ILLNESS: The patient is an 80-year-old male admitted to [facility] fo r complaint of shortness of breath____ . The patient has past medical history of COPD, hypothyroidis m, prostate cancer. The patient came to the ED initially on the noting that he becomes dizzy wh en lying down with shortness of breath on lying down or sits in the car. The patient was not feeling dizzy upon examination. The patient was seen and examined. The patient was placed on meclizine and reports he is still feeling dizzy ____ he feels dizzy worse when lying on his left side than lying f lat on the right. The patient denies fevers, chills, nausea, vomiting, diarrhea, and also denies temitope st pain. PAST MEDICAL HISTORY: COPD, vertigo, hypothyroidism, prostate cancer. SOCIAL HISTORY: The patient does drink alcohol, denies substance abuse. States he did smoke, but ye ars ago approximately 30 years ago. ALLERGIES: No known drug allergies. HOME MEDICATIONS: Albuterol, Symbicort, levothyroxine, Zocor, Colace, meclizine. PHYSICAL EXAMINATION: GENERAL: The patient denied having symptoms of vertigo or dizziness at time of examination. VITAL SIGNS: Stable upon examination. Temperature 98.6, pulse rate 64, respiratory rate 16, blood p ressure 150/80. GENERAL: Alert, oriented x 3, in no acute distress. The patient has nasal cannula in place. ____ cl ear. Nose patent. Mouth moist mucous membranes. No tongue deviation ____ symmetric palatal eleva tion. NECK: Supple. Trachea midline. No tenderness to palpation. ____ neck masses, no ____ neck ____ st ridor ____ breathing ____ eyes no nystagmus ____ left or the right. No vertigo induced by head turni ng of lying ____ physical examination. LABORATORY DATA: White count 6.3, hemoglobin 11.5, hematocrit 35.4, platelets 131. Sodium 138, pota ssium 4, chloride 104, carbon dioxide 25, anion gap 13, BUN 14, creatinine 0.6, calcium 9.5, ____ to valorie bilirubin ____ , AST 18, ALT 24. ProBNP 126. Troponins less than 0.01. CT of the head was perfo rmed on 08/04/2016, read by Dr. Martha Angel 08/04/2016, noting no acute intracranial abnormalities, mild ____ parenchymal volume loss ____ . ASSESSMENT AND PLAN: The patient is an 80-year-old male with history of vertigo in the hospital with complaints of dizziness/vertigo while lying flat and shortness of breath. The patient is being work ed up for vertigo versus vertebrobasilar ischemia, followed by Dr. Rivera. The patient is having a CTA ____ Recommend continue neurologic and cardiac workup for patient's sym ptoms. The patient is on meclizine at this time. The patient's physical examination negative for ve rtigo when turning head to the left or the right and negative for nystagmus turning the head to the l eft ____ right. However, due to the meclizine use at this time, I am unable to fully evaluate. Gera mmend the patient be seen in the outpatient setting in the office where he can follow up with Dr. Allen Valdes. The patient should have a VNG study performed as an outpatient as well as ____ in addit ion to having a VNG study, the patient should be off of meclizine ____ agents____ discussed with gregory conte, discussed with primary team. Nadir Valdes DO cc: [id number] TT: 08/04/2016 19:41:25 Confirmation # [id number] Dictation # [id number] yunior
[2016-08-05] MEDS: Levothyroxine 125 MCG TAB PO SCH (09:56)
[2016-08-05] MEDS: MethylPREDNISolone 40 mg Vial IVP SCH (09:57)
[2016-08-05] MEDS: Enoxaparin 40 mg Syringe SC SCH (09:59)
[2016-08-05] MEDS: ABIRATERONE ACETATE 1000 MG PO SCH (10:00)
--- NOTE | 2016-08-05 10:22 | PN ---
DATE: 08/05/2016 REASON FOR CONSULTATION: Cardiac evaluation, dizziness. BRIEF CLINICAL HISTORY: An 80-year-old male with history of vertigo, history of hypothyroidi sm, prostate cancer, COPD, history of chronic vertigo, history of workup in [facility] includ ing MRI, was placed on meclizine, came because of episode of vertigo. Denies any chest pain, shortne ss of breath, any palpitation. History of cardiac catheterization many years ago, required no card ry intervention at that time. PHYSICAL EXAMINATION: VITAL SIGNS: Temperature afebrile, heart rate , blood pressure 146/80. HEENT: PERRLA. Extraocular muscles intact. NECK: Supple. No carotid bruits. No thyromegaly. CHEST: Clear to auscultation. HEART: S1, S2 regular. ABDOMEN: Soft. EXTREMITIES: Clubbing and cyanosis negative. LABORATORY DATA: Blood workup as follows: WBC 11.4, hemoglobin ____, hematocrit 35.1, platelet coun t 159. Chemistry shows sodium ____, potassium ____, chloride 99, carbon dioxide 32, anion gap of 10, BUN 20, creatinine 0.8. Troponin 0.01 x 2 negative. Triglycerides 63. Total cholesterol 219, LDL 91, HDL 121. ____ 0.14. IMPRESSION: No evidence for acute coronary syndrome. Troponin negative. History of chronic vertigo , history of cardiac catheterization many years ago, told negative, and nonspecific ST-T changes, hyp othyroidism, obesity, history of chronic obstructive pulmonary disease. Repeat echo done yesterday t [facility] showed normal left ventricular ____ ejection fraction within normal limits, mild pulmonary right ventricular systolic pressure of 40, trace mitral regurgitation, mild tricuspid regurgitation, no aor tic regurgitation. RECOMMENDATION: Continue neuro evaluation. Continue levothyroxine, Antivert. Because of risk facto r, suggest a stress test as outpatient. Will schedule in 2 weeks. Will discontinue telemetry. In the interim, continue, as mentioned, DVT prophylaxis. Continue baby aspirin. Continue meclizine. Continue levothyroxine. We will schedule a stress test as outpatient in 2 weeks. Thank you, Dr. Sheth, for providing the opportunity in taking care of this patient. Will follow fei hickman. Christy Marion MD cc: [id number] TT: 08/05/2016 10:21:48 Confirmation # [id number] Dictation # [id number] rn
[2016-08-05 12:30] VITALS: BP 176/80; PULSE 53; RESP 16; TEMP 97.7
[2016-08-05 14:43] LABS: FOLATE 8.7 ng/mL
--- NOTE | 2016-08-05 20:28 | PN ---
DATE: 08/05/2016 REFERRING PHYSICIAN: Dr. Sheth. SUBJECTIVE: The patient is out of bed to chair, feels much better. No headache, no rhinitis. Has l oud snoring, daytime sleepy and tired. No nausea, no vomiting, diarrhea. No leg pain or leg swellin g. Breathing is much improved. OBJECTIVE: GENERAL: In no acute distress. VITAL SIGNS: Temp is 98, heart rate 53, respiratory rate is 20, blood pressure 176/80, pulse ox 100% on nasal cannula. HEENT: Moist mucous membranes. Crowded airway. Mallampati score is 4. NECK: Supple. No JVD. LUNGS: Have a few scattered rhonchi, prolonged expiratory phase. HEART: S1 and S2. ABDOMEN: Soft, nontender. No organomegaly. EXTREMITIES: There is no edema. NEUROLOGIC: Awake, alert, follows simple commands. MEDICATIONS: He is on Zytiga, non-formulary, 1000 mg p.o. daily, albuterol-Atrovent nebulizer q. 6 h ours p.r.n., Antivert is 25 mg 3 times a day, Brovana 15 mcg inhaled twice a day, Colace 100 mg twice a day, Ecotrin 81 mg daily, Lipitor 20 mg daily, Lovenox 40 mg daily, Protonix 40 mg daily, Pulmicor t inhaled twice a day, Solu-Medrol 20 mg q. 12 hours, Synthroid 125 mcg daily. LABORATORY DATA: Shows hemoglobin 11.3, hematocrit 35.1, WBC 11.4, platelet is 159. Sodium 137, pot assium 4.3, chloride 99, bicarbonate 32, BUN 20, creatinine 0.8, glucose 169. Hemoglobin A1c 7.0, ca lcium 9.7. Iron is 48. Cholesterol is 219. TSH is 0.14. Urine culture has some gram-positive cocc i. IMPRESSION AND PLAN: Chronic obstructive lung disease, may have obstructive sleep apnea syndrome, pu lmonary hypertension, hypothyroid, hyperlipidemia, hypertension, recurrent dizzy spells, seen by neur ology. Echocardiogram suggests mild pulmonary hypertension. The patient will be going home today on tapered dose of steroids and antibiotics. Outpatient attended sleep study. Needs pulmonary functio n test. Thank you and will follow with you. Christy Bartlett MD cc: [id number] TT: 08/05/2016 20:27:52 Confirmation # [id number] Dictation # [id number] rn
== END 2016-08-05 15:52 | disposition home or self-care (01) | DRG 149 ==
LOC: ED 10:39 → ERH 12:59 → 2RSO 13:07 → ERH 13:46 → 2RSO 14:23 → OBSVTOIN 08-04 23:15
PROVIDERS: ADMIT Internal Medicine; ATTEND Internal Medicine
PROC: 3E0F7GC Introduction of Other Therapeutic Substance into Respiratory Tract, Via Natural or Artificial Opening (ICD-10-PCS; principal; 2016-08-03)
DX: H81.10 Benign paroxysmal vertigo, unspecified ear (principal); I27.2 Other secondary pulmonary hypertension; J44.9 Chronic obstructive pulmonary disease, unspecified; D64.9 Anemia, unspecified; E03.9 Hypothyroidism, unspecified; E78.00 Pure hypercholesterolemia, unspecified; I10 Essential (primary) hypertension; G47.33 Obstructive sleep apnea (adult) (pediatric); E78.5 Hyperlipidemia, unspecified; E66.9 Obesity, unspecified; Z85.46 Personal history of malignant neoplasm of prostate; Z68.29 Body mass index [BMI] 29.0-29.9, adult

== ENCOUNTER 2016-10-10 16:04 | Emergency (ER) | payer MEDICARE, OTHER ==
[2016-10-10 16:20] VITALS: BMI 31.1
[2016-10-10] MEDS ORDERED: Sodium Chloride 0.9% 1,000 ML IV STA (16:25)
[2016-10-10 16:29] VITALS: RESP 16; O2SAT 95
--- NOTE | 2016-10-10 16:32 | ED PDOC ---
Arrival/HPI - General Time Seen by Provider: 10/10/16 16:10 Historian: Patient - History of Present Illness Narrative History of Present Illness (Text): 10/10/16 16:28 A 81 year old male, whose past medical history includes vertigo, presents to the emergency department complaining of sudden onset of dizziness this morning. Patient describes it as a room-spinning sensation. He states it feels similar to his previous vertigo symptoms. Patient denies any fever, chills, nausea, vomiting, abdominal pain, chest pain, shortness of breath, headache, neck pain or any other complaints. PMD: Dr. Sheth Time/Duration: Other (this morning) Symptom Course: Unchanged Quality: Other Context: Home Past Medical History - Provider Review Nursing Documentation Reviewed: Yes - Infectious Disease Hx of Infectious Diseases: None - Cardiac Hx Cardiac Disorders: Yes - Pulmonary Hx Chronic Obstructive Pulmonary Disease (COPD): Yes - Neurological Hx Neurological Disorder: Yes Hx Dizziness: Yes (VERTIGO) - HEENT Hx HEENT Disorder: Yes - Renal Hx Renal Disorder: No - Endocrine/Metabolic Hx Hypothyroidism: Yes - Hematological/Oncological Hx Blood Disorders: Yes Hx Cancer: Yes (PROSTATE-COMPLETED CHEMO AND RADIATION 2003) - Integumentary Hx Dermatological Disorder: No - Musculoskeletal/Rheumatological Hx Musculoskeletal Disorders: Yes Hx Falls: Yes Hx Unsteady Gait: Yes (CANE) - Gastrointestinal Hx Gastrointestinal Disorders: Yes (CONSTIPATION) - Genitourinary/Gynecological Hx Genitourinary Disorders: Yes (SELF CATHETHERIZATION-) Hx Prostate Problems: Yes (PROSTATE CA -COMPLETED CHEMO AND RADIATION 2003) Other/Comment: CYSTOSCOPY DONE. - Psychiatric Hx Psychophysiologic Disorder: No Hx Substance Use: No - Anesthesia Hx Anesthesia Reactions: No Hx Malignant Hyperthermia: No Family/Social History - Physician Review Nursing Documentation Reviewed: Yes Family/Social History: No Known Family HX Smoking Status: Former Smoker Hx Alcohol Use: Yes (SOCIAL QUIT) Hx Substance Use: No Allergies/Home Meds Allergies/Adverse Reactions: Allergies No Known Allergies Allergy (Verified 08/03/16 14:12) Home Medications: Home Meds Medication Instructions Recorded Confirmed Albuterol 0.083% [Albuterol 0.083% 1 inhaler INH PRN PRN 07/18/16 08/22/16 Inhal Geni (2.5 mg/3 ml) UD] Budesonide/Formoterol Fumarate 1 inhaler IH DAILY 07/18/16 08/22/16 [Symbicort 160-4.5 Mcg Inhaler] Levothyroxine [Synthroid] 0.125 mg PO DAILY 07/18/16 08/22/16 Simvastatin [Zocor] 40 mg PO DAILY 07/18/16 08/22/16 Abiraterone Acetate [Zytiga] 1,000 mg PO DAILY 08/03/16 08/22/16 Carbamide Peroxide [Ear System] 5 drop OT BID 08/03/16 08/22/16 Docusate Sodium [Colace] 100 mg PO BID 08/03/16 08/22/16 Leuprolide Acetate [Eligard] 1 syr TOP ONCE 08/03/16 08/22/16 Meclizine HCl [Motion Sickness 25 mg PO TID PRN 08/03/16 08/22/16 Relief] Methylprednisolone [Medrol Dose 4 mg PO BID 08/03/16 08/22/16 Pack (21 tabs)] Physical Exam - Physical Exam Narrative Physical Exam (Text): - Review of Systems Constitutional: Normal. absent: Fatigue, Weight Change, Fevers Eyes: Normal ENT: Normal Respiratory: Normal absent: SOB, Cough, Sputum Cardiovascular: Normal absent: Chest pain, Palpitations, Syncope Gastrointestinal: Normal absent: Abdominal pain, Diarrhea, Nausea, Vomiting Genitourinary: Normal. absent: Dysuria, Frequency, Hematuria Musculoskeletal: Normal. absent: Arthralgias, Back Pain, Neck Pain Skin: Normal Neurological: (+) Dizziness absent: Focal Weakness, Headache Endocrine: Normal Hemo/Lymphatic: Normal Psychiatric: Normal - Physical exam Patient appears age appropriate, speaking full sentences without difficulty - Systems Exam Head: Present: Atraumatic, Normocephalic Pupils: Present: PERRL Extraocular Muscles: Present: EOMI Conjunctiva: Present: Normal Mouth: Present: Moist Mucous Membranes Neck: Present: Normal Range of Motion. No: MIDLINE TENDERNESS, Paraspinal Tenderness Respiratory/Chest: Present: Clear to Auscultation, Good Air Exchange. No: Respiratory Distress, Accessory Muscle Use, Tachypnic Cardiovascular: Present: Regular Rate and Rhythm, Normal S1, S2, Peripheral Pulses Present. No: Murmurs Abdomen: Present: Normal Bowel Sounds, No: Tenderness, Peritoneal Signs, Rebound, Guarding, Distention Back: Present: Normal Inspection. No: Midline Tenderness, Paraspinal Tenderness Upper Extremity: Present: Normal Inspection. No: Cyanosis, Edema Lower Extremity: Present: Normal Inspection. No: Edema Neurological: Present: GCS=15, Speech Normal, cranial nerves II through XII fully intact with no cerebellar abnormality, neuro-sensory fully intact. No focal neurological deficits. HINTS exam normal. Skin: Present: Warm, Dry, Normal Color. No: Rashes Lymphatic: Present: OX3, NI, NC Psychiatric: Present: Alert, Oriented x 3, Normal Insight, Normal Concentration Vital Signs Reviewed: Yes Vital Signs Temp Pulse Resp BP Pulse Ox 10/10/16 16:20 80 16 142/94 H 95 10/10/16 16:11 98.6 F 70 18 142/94 H 97 Temperature: Afebrile Blood Pressure: Hypertensive Pulse: Regular Respiratory Rate: Normal Appearance: Positive for: Well-Appearing, Non-Toxic, Comfortable Pain Distress: None Mental Status: Positive for: Alert and Oriented X 3 Finger Stick Blood Glucose: 109 Medical Decision Making ED Course and Treatment: 10/10/16 16:28 Impression: A 81 year old female with dizziness, similar to previous vertigo symptoms. Physical exam unremarkable. Normal HINTS exam. Plan: -- Head CT -- Labs -- Antivert and IV fluids -- Reassess and disposition Progress Notes: EKG shows NSR at [address]-segment elevations, normal intervals. Interpreted by me. 10/10/16 18:02 no acute imaging or lab abnormalities on reeval, pt states that his symptoms fully resolved no focal neurological deficits on reevaluation pt ambulates with steady gait using a cane ate a sandwich, pudding, and juice without any difficulty states he feels well and comfortable being dc'd home with outpatient f/u pt [facility] Pt states he understands to return to the ER right away for new or worsening symptoms or for inability to f/u with PMD or specialist as instructed. Patient states that he fully agrees with and understands discharge instructions. States that he agrees with the plan and disposition. Verbalized and repeated discharge instructions and plan. I have given the patient opportunity to ask any additional questions. - Lab Interpretations Lab Results: 10/10/16 16:50 10/10/16 16:50 Lab Results 10/10/16 16:50: Sodium 138, Potassium 4.3, Chloride 103, Carbon Dioxide 26, Anion Gap 13, BUN 19, Creatinine 0.8, Est GFR ( Amer) > 60, Est GFR (Non- Af Amer) > 60, Random Glucose 103, Calcium 9.6, Total Bilirubin 0.9, AST 20, ALT 28, Alkaline Phosphatase 156 H, Total Protein 7.4, Albumin 4.2, Globulin 3.2 , Albumin/Globulin Ratio 1.3 10/10/16 16:50: PT 10.8, INR 1.00, APTT 26.2 10/10/16 16:50: WBC 7.3 D, RBC 4.18, Hgb 12.8 L, Hct 39.4 L, MCV 94.3, MCH 30.6 , MCHC 32.5, RDW 14.1, Plt Count 147, MPV 12.3 H, Gran % 78.9 H, Lymph % (Auto) 16.0 L, [place] % (Auto) 4.9, Eos % (Auto) 0.1 L, Baso % (Auto) 0.1, Gran # 5.76, Lymph # 1.2, [place] # 0.4, Eos # 0.0, Baso # 0.01, Corrected WBC (Man) Cancelled, Neutrophils % (Manual) Cancelled, Band Neutrophils % Cancelled, Lymphocytes % ( Manual) Cancelled, Atypical Lymphs % Cancelled, Monocytes % (Manual) Cancelled, Eosinophils % (Manual) Cancelled, Basophils % (Manual) Cancelled, Metamyelocytes % Cancelled, Myelocytes % Cancelled, Promyelocytes % Cancelled, Nucleated RBC % Cancelled, Hypersegmented Polys Cancelled, Immature Lymphocytes Cancelled, Blast Cells Cancelled, Smudge Cells Cancelled, Toxic Granulation Cancelled, Dohle Bodies Cancelled, Jese Rods Cancelled, Platelet Evaluation Cancelled, Plt Clumps, EDTA Cancelled, Large Platelets Cancelled, Giant Platelets Cancelled, Polychromasia Cancelled, Hypochromasia Cancelled, Hyperchromasia Cancelled, Poikilocytosis (manual Cancelled, Basophilic Stippling Cancelled, Anisocytosis (manual) Cancelled, Microcytosis (manual) Cancelled, Macrocytosis (manual) Cancelled, Spherocytes Cancelled, Sickle Cells Cancelled, Target Cells Cancelled, Tear Drop Cells Cancelled, Ovalocytes Cancelled, Stomatocytes Cancelled, Helmet Cells Cancelled, [place] Rings Cancelled , [place] Cells Cancelled, Acanthocytes (Spur) Cancelled, Rouleaux Cancelled, Schistocytes Cancelled I have reviewed the lab results: Yes - RAD Interpretation Radiology Orders: 10/10/16 16:24 HEAD W/O CONTRAST [CT] Stat - Medication Orders Current Medication Orders: Discontinued Medications Sodium Chloride (Sodium Chloride 0.9%) 1,000 mls @ 1,000 mls/hr IV .Q1H STA Stop: 10/10/16 17:24 Last Admin: 10/10/16 17:18 Dose: 1,000 mls/hr Meclizine HCl (Antivert) 25 mg PO STAT STA Stop: 10/10/16 16:26 Last Admin: 10/10/16 17:18 Dose: 25 mg - Scribe Statement The provider has reviewed the documentation as recorded by the Latisha Mock Provider Scribe Attestation: All medical record entries made by the Shortyibsurinder were at my direction and personally dictated by me. I have reviewed the chart and agree that the record accurately reflects my personal performance of the history, physical exam, medical decision making, and the department course for this patient. I have also personally directed, reviewed, and agree with the discharge instructions and disposition. Disposition/Present on Arrival - Present on Arrival Any Indicators Present on Arrival: No History of DVT/PE: No History of Uncontrolled Diabetes: No Urinary Catheter: No History Surgical Site Infection Following: None - Disposition Have Diagnosis and Disposition been Completed?: Yes Diagnosis: Dizziness Disposition: HOME/ ROUTINE Disposition Time: 17:51 Patient Plan: Discharge Patient Problems: Current Active Problems Problem Status Onset Dizziness Acute Condition: GOOD Discharge Instructions (ExitCare): Vertigo (ED), Dizziness (ED) Additional Instructions: PLEASE RETURN TO THE EMERGENCY DEPARTMENT FOR NEW OR WORSENING SYMPTOMS. RETURN RIGHT AWAY IF YOU CANNOT FOLLOW UP WITH YOUR PRIMARY CARE DOCTOR, CLINIC, OR SPECIALIST IN 1-2 DAYS. Referrals: Megan Sheth MD [Primary Care Provider] - Follow up with primary Rigoberto Sr DO [Staff Provider] - Follow up with primary Eladio Rivera MD [Staff Provider] - Follow up with primary
[2016-10-10 16:59] LABS: BASO # 0.01 K/mm3 (0.0-2.0); BASO % 0.1 % (0.0-3.0); EOS % 0.1 % (1.5-5.0); GRAN # 5.76 (1.4-6.5); GRAN % 78.9 % (50.0-68.0); HEMATOCRIT 39.4 % (42.0-52.0); LYMPH # 1.2 (1.2-3.4); MEAN CELL VOLUME 94.3 fl (80.0-105.0); MEAN CORPUSCULAR HEMOGLOBIN 30.6 pg (25.0-35.0); MEAN CORPUSCULAR HGB CONC 32.5 g/dl (31.0-37.0); MEAN PLATELET VOLUME 12.3 fl (7.0-11.0); MONO # 0.4 (0.1-0.6); MONO % 4.9 % (1.0-6.0); RED CELL DISTRIBUTION WIDTH 14.1 % (11.5-14.5); WHITE BLOOD COUNT 7.3 10^3/ul (4.5-11.0)
[2016-10-10 17:07] LABS: PARTIAL THROMBOPLASTIN TIME 26.2 Seconds (23.7-30.8)
[2016-10-10 17:19] LABS: ALB/GLOB RATIO 1.3 (1.1-1.8); ALKALINE PHOSPHATASE 156 U/L (38-133); ALT/SGPT 28 U/L (7-56); AST/SGOT 20 U/L (15-59); BILIRUBIN,TOTAL 0.9 mg/dL (0.2-1.3); BLOOD UREA NITROGEN 19 mg/dL (7-21); CALCIUM 9.6 mg/dL (8.4-10.5); CARBON DIOXIDE 26 mmol/L (21-33); GFR AFRICAN-AMERICAN > 60; GLUCOSE,RANDOM 103 mg/dL (70-110); POTASSIUM 4.3 mmol/L (3.6-5.0); SODIUM 138 mmol/L (132-148); TOTAL PROTEIN 7.4 g/dL (5.8-8.3)
[2016-10-10 17:22] LABS: CHLORIDE 103 mmol/L (98-107)
--- NOTE | 2016-10-10 17:31 | CT ---
PROCEDURE: CT HEAD WITHOUT CONTRAST. HISTORY: dizzy COMPARISON: Noncontrast head CT performed 08/04/16 TECHNIQUE: Axial computed tomography images were obtained through the head/brain without intravenous contrast. Radiation dose: Total exam DLP = 765.64 mGy-cm. This CT exam was performed using one or more of the following dose reduction techniques: Automated exposure control, adjustment of the mA and/or kV according to patient size, and/or use of iterative reconstruction technique. FINDINGS: HEMORRHAGE: No intracranial hemorrhage. BRAIN: Diffuse atrophy with prominence of the ventricles and sulci noted. No mass effect or edema. Intracranial atherosclerotic calcifications. Bilateral basal ganglia calcifications. Moderate scattered periventricular and subcortical white matter hypodensities, which are nonspecific, but often seen with chronic microvascular ischemic disease. Please note that MRI with diffusion imaging is more sensitive in the detection of acute ischemic event. VENTRICLES: No hydrocephalus. CALVARIUM: Unremarkable. PARANASAL SINUSES: Unremarkable as visualized. No significant inflammatory changes. MASTOID AIR CELLS: Unremarkable as visualized. No inflammatory changes. OTHER FINDINGS: Partial opacification of the left greater than right external auditory canals, likely cerumen. IMPRESSION: Nonspecific moderate scattered white matter changes. Generalized atrophy.
[2016-10-10 18:08] VITALS: BP 127/88; PULSE 81; TEMP 98.2
--- NOTE | 2016-10-11 19:33 | CARD ---
APPROVED REPORT EKG Measurement Heart [id number] <Conclusion> Normal sinus rhythm Left anterior fascicular block Nonspecific T wave abnormality Abnormal ECG
== END 2016-10-10 18:08 | disposition home or self-care (01) ==
LOC: ED 16:04
DX: R42 Dizziness and giddiness (principal)
CPT/HCPCS: 70450; 80053; 82948; 85025; 85610; 85730; 93005; 99285; J7040

== ENCOUNTER 2016-10-11 18:37 | Inpatient (IN) | payer MEDICARE, OTHER ==
[2016-10-11 18:38] VITALS: BMI 31.1
--- NOTE | 2016-10-11 19:52 | ED PDOC ---
Arrival/HPI - General Chief Complaint: Shortness Of Breath Time Seen by Provider: 10/11/16 19:32 Historian: Patient - History of Present Illness Narrative History of Present Illness (Text): 10/11/16 19:47 A 81 year old male, whose past medical history includes COPD and vertigo, presents to the emergency department complaining of shortness of breath since yesterday night. 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 Patient denies any fever, chills, nausea, vomiting, abdominal pain, chest pain, cough or any other complaints. Patient was recently seen in the emergency room yesterday for vertigo. PMD: Dr. Boss Time/Duration: Other (last night) Symptom Course: Unchanged Quality: Other Context: Home Past Medical History - Provider Review Nursing Documentation Reviewed: Yes - Infectious Disease Hx of Infectious Diseases: None - Cardiac Hx Cardiac Disorders: No - Pulmonary Hx Respiratory Disorders: Yes Hx Chronic Obstructive Pulmonary Disease (COPD): Yes Hx Sleep Apnea: Yes - Neurological Hx Neurological Disorder: Yes Hx Dizziness: Yes (VERTIGO) - HEENT Hx HEENT Disorder: Yes - Renal Hx Renal Disorder: No - Endocrine/Metabolic Hx Endocrine Disorders: Yes Hx Hypothyroidism: Yes - Hematological/Oncological Hx Blood Disorders: Yes Hx Cancer: Yes (PROSTATE-COMPLETED CHEMO AND RADIATION 2003) - Integumentary Hx Dermatological Disorder: No - Musculoskeletal/Rheumatological Hx Musculoskeletal Disorders: Yes Hx Falls: Yes Hx Unsteady Gait: Yes (CANE) - Gastrointestinal Hx Gastrointestinal Disorders: Yes (CONSTIPATION) - Genitourinary/Gynecological Hx Genitourinary Disorders: Yes (SELF CATHETHERIZATION-) Hx Prostate Problems: Yes (PROSTATE CA -COMPLETED CHEMO AND RADIATION 2003) Other/Comment: CYSTOSCOPY DONE. - Psychiatric Hx Psychophysiologic Disorder: No Hx Substance Use: No - Anesthesia Hx Anesthesia Reactions: No Hx Malignant Hyperthermia: No Family/Social History - Physician Review Nursing Documentation Reviewed: Yes Family/Social History: No Known Family HX Smoking Status: Former Smoker Hx Alcohol Use: No (SOCIAL QUIT) Hx Substance Use: No Allergies/Home Meds Allergies/Adverse Reactions: Allergies No Known Allergies Allergy (Verified 10/11/16 19:11) Home Medications: Home Meds Medication Instructions Recorded Confirmed Albuterol 0.083% [Albuterol 0.083% 1 inhaler INH PRN PRN 07/18/16 10/11/16 Inhal Geni (2.5 mg/3 ml) UD] Levothyroxine [Synthroid] 112 mcg PO DAILY 07/18/16 10/11/16 Abiraterone Acetate [Zytiga] 1,000 mg PO DAILY 08/03/16 10/11/16 Meclizine HCl [Motion Sickness 25 mg PO PRN PRN 08/03/16 10/11/16 Relief] Budesonide/Formoterol Fumarate 1 inh INH BID 10/11/16 10/11/16 [Symbicort 160-4.5 Mcg Inhaler] Cetirizine HCl [Cetirizine HCl] 1 tab PO DAILY 10/11/16 10/11/16 Docusate Sodium [Dulcolax Stool 1 tab PO BID 10/11/16 10/11/16 Softener] Prednisone [Prednisone] 5 mg PO BID 10/11/16 10/11/16 Review of Systems - Physician Review All systems were reviewed & negative as marked: Yes - Review of Systems Constitutional: absent: Fevers, Night Sweats Respiratory: SOB. absent: Cough Cardiovascular: absent: Chest Pain Gastrointestinal: absent: Abdominal Pain, Nausea, Vomiting Physical Exam Vital Signs Reviewed: Yes Vital Signs Temp Pulse Resp BP Pulse Ox 10/11/16 19:46 20 100 10/11/16 19:10 98.2 F 74 17 135/85 100 Temperature: Afebrile Blood Pressure: Normal Pulse: Regular Respiratory Rate: Normal Appearance: Positive for: Well-Appearing, Non-Toxic, Comfortable Pain Distress: None Mental Status: Positive for: Alert and Oriented X 3 - Systems Exam Head: Present: Atraumatic, Normocephalic Pupils: Present: PERRL Extroacular Muscles: Present: EOMI Conjunctiva: Present: Normal Mouth: Present: Moist Mucous Membranes Neck: Present: Normal Range of Motion Respiratory/Chest: Present: Clear to Auscultation, Decreased Breath Sounds. No : Respiratory Distress, Accessory Muscle Use Cardiovascular: Present: Regular Rate and Rhythm, Normal S1, S2. No: Murmurs Abdomen: Present: Normal Bowel Sounds. No: Tenderness, Distention, Peritoneal Signs Back: Present: Normal Inspection Upper Extremity: Present: Normal Inspection. No: Cyanosis, Edema Lower Extremity: Present: Normal Inspection. No: Edema Neurological: Present: GCS=15, CN II-XII Intact, Speech Normal Skin: Present: Warm, Dry, Normal Color. No: Rashes Psychiatric: Present: Alert, Oriented x 3, Normal Insight, Normal Concentration Medical Decision Making ED Course and Treatment: 10/11/16 19:47 Impression: A 81 year old male with shortness of breath. Plan: -- Chest xray -- EKG -- Labs -- Reassess and disposition Prior Visits: Notes and results from previous visits were reviewed. Patient had a stress test on 08/22/16 which showed normal results. Progress Notes: 10/11/16 20:37 EKG shows NSR at 67bpm with left anterior fasicular block, LVH, non-specific ST changes unchanged from 10/10/16. Cxray negative. Trop x 1 negative. BNP WNL. Patient reports some improvement after duonebs and prednisone. Spoke to Dr. Sheth and will transfer to [facility] for COPD exacerbation. Ordered bipap to be used at night. - Lab Interpretations Lab Results: 10/11/16 20:13 10/11/16 20:13 Lab Results 10/11/16 20:13: Sodium 139, Potassium 4.3, Chloride 103, Carbon Dioxide 29, Anion Gap 11, BUN 18, Creatinine 0.7, Est GFR ( Amer) > 60, Est GFR (Non- Af Amer) > 60, Random Glucose 111 H, Calcium 9.1, Total Bilirubin 0.6, AST 21, ALT 26, Alkaline Phosphatase 140 H, Total Creatine Kinase 54, Troponin I < 0.01 , NT-Pro-B Natriuret Pep 74.4, Total Protein 6.9, Albumin 3.9, Globulin 3.0, Albumin/Globulin Ratio 1.3 10/11/16 20:13: PT 10.7, INR 0.99, APTT 25.4 10/11/16 20:13: WBC 6.5, RBC 3.83, Hgb 11.5 L, Hct 36.1 L, MCV 94.3, MCH 30.0, MCHC 31.9, RDW 14.2, Plt Count 162, MPV 12.2 H, Gran % 70.1 H, Lymph % (Auto) 21.8 L, [place] % (Auto) 7.7 H, Eos % (Auto) 0.2 L, Baso % (Auto) 0.2, Gran # 4.55 , Lymph # 1.4, [place] # 0.5, Eos # 0.0, Baso # 0.01 I have reviewed the lab results: Yes - RAD Interpretation Radiology Orders: 10/11/16 19:46 CHEST PORTABLE [RAD] Stat - Medication Orders Current Medication Orders: Discontinued Medications Albuterol/Ipratropium (Duoneb 3 Mg/0.5 Mg (3 Ml) Ud) 3 ml IH STAT STA Stop: 10/11/16 21:05 Last Admin: 10/11/16 21:22 Dose: 3 ml Prednisone (Prednisone Tab) 60 mg PO STAT ONE Stop: 10/11/16 21:05 Last Admin: 10/11/16 21: Dose: 60 mg - Scribe Statement The provider has reviewed the documentation as recorded by the Latisha Mock Provider Scribe Attestation: All medical record entries made by the Shortyibsurinder were at my direction and personally dictated by me. I have reviewed the chart and agree that the record accurately reflects my personal performance of the history, physical exam, medical decision making, and the department course for this patient. I have also personally directed, reviewed, and agree with the discharge instructions and disposition. Disposition/Present on Arrival - Present on Arrival Any Indicators Present on Arrival: No History of DVT/PE: No History of Uncontrolled Diabetes: No Urinary Catheter: No History of Decub. Ulcer: No History Surgical Site Infection Following: None - Disposition Have Diagnosis and Disposition been Completed?: Yes Diagnosis: Chronic obstructive lung disease, COPD (chronic obstructive pulmonary disease) Disposition: HOSPITALIZED Disposition Time: 21:48 Patient Plan: Observation Condition: FAIR
[2016-10-11 20:28] LABS: BASO # 0.01 K/mm3 (0.0-2.0); BASO % 0.2 % (0.0-3.0); EOS % 0.2 % (1.5-5.0); GRAN # 4.55 (1.4-6.5); GRAN % 70.1 % (50.0-68.0); HEMATOCRIT 36.1 % (42.0-52.0); LYMPH # 1.4 (1.2-3.4); LYMPH % 21.8 % (22.0-35.0); MEAN CELL VOLUME 94.3 fl (80.0-105.0); MEAN CORPUSCULAR HGB CONC 31.9 g/dl (31.0-37.0); MEAN PLATELET VOLUME 12.2 fl (7.0-11.0); MONO # 0.5 (0.1-0.6); MONO % 7.7 % (1.0-6.0); RED CELL DISTRIBUTION WIDTH 14.2 % (11.5-14.5); WHITE BLOOD COUNT 6.5 10^3/ul (4.5-11.0)
[2016-10-11 20:31] LABS: ALB/GLOB RATIO 1.3 (1.1-1.8); ALKALINE PHOSPHATASE 140 U/L (38-133); ALT/SGPT 26 U/L (7-56); AST/SGOT 21 U/L (15-59); BILIRUBIN,TOTAL 0.6 mg/dL (0.2-1.3); BLOOD UREA NITROGEN 18 mg/dL (7-21); CALCIUM 9.1 mg/dL (8.4-10.5); CARBON DIOXIDE 29 mmol/L (21-33); CHLORIDE 103 mmol/L (98-107); GFR AFRICAN-AMERICAN > 60; GLUCOSE,RANDOM 111 mg/dL (70-110); POTASSIUM 4.3 mmol/L (3.6-5.0); SODIUM 139 mmol/L (132-148); TOTAL PROTEIN 6.9 g/dL (5.8-8.3)
[2016-10-11 20:36] LABS: INR 0.99 (0.93-1.08); PARTIAL THROMBOPLASTIN TIME 25.4 Seconds (23.7-30.8)
[2016-10-11 20:43] LABS: TROPONIN I < 0.01 ng/mL
[2016-10-11] MEDS ORDERED: Albuterol-Ipratrop 3 mg / 0.5 (3 ml) UD IH STA (21:04)
[2016-10-12] MEDS: Budesonide/Formoterol Fumarate [Symbicort 160-4.5 Mcg Inhaler] (HOME MED) INH SCH ×3 (01:33→17:10)
[2016-10-12] MEDS: Levothyroxine 112 MCG TAB PO SCH (05:23)
--- NOTE | 2016-10-12 07:36 | RAD ---
HISTORY: chest pain COMPARISON: 08/03/2016 FINDINGS: LUNGS: Prominent emphysematous cystic changes in the upper lobes right greater than left are renoted and similar PLEURA: No significant pleural effusion identified, no pneumothorax apparent. Minimal fluid and/or minimal pleural thickening -right minor fissure possible. Discoid atelectasis and/or scarring -in differential. CARDIOVASCULAR: Minimal cardiomegaly. Possible concomitant mild pulmonary venous congestion -overall pattern not significantly different. OSSEOUS STRUCTURES: No significant abnormalities. VISUALIZED UPPER ABDOMEN: Normal. OTHER FINDINGS: None. IMPRESSION: Emphysematous changes. Minimal cardiomegaly. Possible concomitant mild pulmonary venous congestion-these findings are not not significantly changed. Interval linear opacity right mid lung zone - trace fluid/trace thickening right minor fissure favored.
[2016-10-12] MEDS: ABIRATERONE ACETATE 1000 MG PO SCH (10:00)
[2016-10-12] MEDS: Albuterol 0.083% Inhal Sol (2.5 mg/3 mL) UD INH PRN ×2 (15:54→23:32)
--- NOTE | 2016-10-12 17:16 | CARD ---
APPROVED REPORT EKG Measurement Heart [id number] <Conclusion> Normal sinus rhythm Incomplete right bundle branch block Left anterior fascicular block Minimal voltage criteria for LVH, may be normal variant Nonspecific T wave abnormality Abnormal ECG
[2016-10-12] MEDS: MethylPREDNISolone 40 mg Vial IVP SCH (21:13)
[2016-10-13] MEDS: Levothyroxine 112 MCG TAB PO SCH (05:28)
--- NOTE | 2016-10-13 05:59 | CP.PCM.PN ---
Subjective - Date & Time of Evaluation Date of Evaluation: 10/13/16 Time of Evaluation: 06:00 - Subjective Subjective: S:Patient was seen because he demanded for meclizine for vertigo. He has been ordered to have Meclizine 25 mg PO at 10AM, 2PM and 6PM. Has no other complaints. Pertinent medical record was reviewed. Patient was seen at bed side. O: VSS. Not in distress. LUNGS:Normal breathing pattern. A:Vertigo. P:Meclizine 25 mg PO stat. Objective - Vital Signs/Intake and Output Vital Signs (last 24 hours): Temp Pulse Resp BP Pulse Ox 98.3 F 66 20 146/90 99 10/13/16 00:01 10/13/16 02:00 10/13/16 00:01 10/13/16 00:01 10/12/16 05:50 Intake and Output: 10/12/16 10/13/16 18:59 06:59 Intake Total 660 360 Output Total 650 500 Balance 10 -140 - Medications Medications: Current Medications Albuterol Sulfate (Albuterol 0.083% Inhal Geni (2.5 Mg/3 Ml) Ud) 2.5 mg INH Q6H PRN PRN Reason: Shortness of Breath Last Admin: 10/12/16 23:32 Dose: 2.5 mg Aspirin (Ecotrin) 81 mg PO DAILY [facility] Last Admin: 10/12/16 10:00 Dose: 81 mg Docusate Sodium (Colace) 100 mg PO BID [facility] Last Admin: 10/12/16 17:10 Dose: 100 mg Doxycycline Hyclate (Doryx) 100 mg PO Q12 KRYS PRN Reason: Protocol Last Admin: 10/12/16 21:14 Dose: 100 mg Levothyroxine Sodium (Synthroid) 112 mcg PO 0600 [facility] Last Admin: 10/13/16 05:28 Dose: 112 mcg Loratadine (Claritin) 10 mg PO DAILY [facility] Last Admin: 10/12/16 09:59 Dose: 10 mg Meclizine HCl (Antivert) 25 mg PO TID [facility] Last Admin: 10/12/16 21:14 Dose: 25 mg Methylprednisolone (Solu-Medrol) 30 mg IVP Q12 [facility] Last Admin: 10/12/16 21:13 Dose: 30 mg Abiraterone Acetate [Zytiga] 1,000 Mg ( Home Med) 1,000 mg PO DAILY [facility] Last Admin: 10/12/16 10:00 Dose: Not Given Budesonide/Formoterol Fumarate [Symbicort 160-4.5 Mcg Inhaler] (Home Med) 1 inh INH BID [facility] Last Admin: 10/12/16 17:10 Dose: Not Given - Labs Labs: PT 10.7 Seconds (9.9-11.8) 10/11/16 20:13 INR 0.99 (0.93-1.08) 10/11/16 20:13 APTT 25.4 Seconds (23.7-30.8) 10/11/16 20:13
--- NOTE | 2016-10-13 07:07 | HP ---
CHIEF COMPLAINT: Shortness of breath and coughing having dizziness. HISTORY OF PRESENT ILLNESS: Mr. Pantoja is an 81 years old male with past medical history of COPD, vertigo, came to the emergency department complaining of shortness of breath since yesterday. 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 Denies any fever, chills, nausea, vomiting, abdominal pain, coughing or hematuria, hematochezia. Patient was recently seen in the ER, I think Monday for vertigo. PAST MEDICAL HISTORY: COPD, asthma, sleep apnea, hypertension, hypercholesterolemia, hypothyroidism, prostate CA completed chemotherapy and radiation therapy in 2003, history of falls unsteady gait using cane, gastroesophageal reflux disease status post hysteroscopy. FAMILY HISTORY: Father and mother noncontributory. HABITS: No smoking. No drug or ethanol. Former smoker. ALLERGIES: PATIENT IS NOT ALLERGIC TO ANY MEDICATION. HOME MEDICATIONS: Albuterol, levothyroxine, Zetia, meclizine, Symbicort, cetirizine, Dulcolax and prednisone. REVIEW OF SYSTEMS: Patient is examined on the bedside in the telemetry. No nausea or vomiting. Complaining of coughing, shortness of breath and dizziness. No chest pain or palpitation. Well appearing, nontoxic exam, comfortable. Not depressed. PHYSICAL EXAMINATION VITAL SIGNS: Temperature is 98.2, pulse 74, respiratory rate 70, blood pressure 137/85 and pulse oximetry 100%. HEENT: Head normocephalic and atraumatic. Eyes, PERRLA. Extraocular muscles intact. Conjunctivae are clear. Nose is patent. Mucous membrane moist. NECK: Supple. No carotid bruits. No JVD or thyromegaly. CHEST: Bilateral symmetrical. HEART: S1 and S2 positive. LUNGS: Clear to auscultation. ABDOMEN: Soft. Bowel sounds positive. No organomegaly. EXTREMITIES: No edema and no cyanosis. NEUROLOGICAL: The patient is awake and alert. Moving all 4 extremities. No focal deficit. LABORATORY DATA: White blood cell 6.5, hemoglobin 11.5, hematocrit 36.5 and platelets 252. Sodium of 139, potassium 4.3, BUN 18, creatinine 0.7, glucose 111. ASSESSMENT AND PLAN: Mr. Kit Vargas is an 81 years old male with anemia; hyperglycemia; history of chronic obstructive pulmonary disease; obstructive sleep apnea; came with exacerbation of chronic obstructive pulmonary disease, chest x-ray done Albuterol given; history of vertigo, using meclizine for that; was seen in ER on Monday for the dizziness; seen by the ENT, sleep apnea; history of hypothyroidism; history of prostate cancer, completed chemo and radiation therapy. He has had falls and unsteady gait. Chronic constipation, gastroesophageal reflux disease, dyspepsia. Gastrointestinal and deep venous thrombosis prophylaxis. Repeat labs. We will follow up. Megan Sheth MD
--- NOTE | 2016-10-13 07:09 | CON ---
DATE: 10/12/2016 REFERRING PHYSICIAN: Dr. Sheth REASON FOR CONSULTATION: Chronic obstructive lung disease, obstructive sleep apnea syndrome, admitted with cough and shortness of breath. 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 He still has not had his noninvasive ventilator remitted to home yet. No hemoptysis, no hematemesis, no hematuria, no diarrhea reported. PAST MEDICAL HISTORY: Chronic obstructive lung disease, hypothyroid, history of prostate cancer, has a sleep apnea syndrome with central and obstructive components. SOCIAL HISTORY: Recently stopped smoking. Denied any alcohol use. FAMILY HISTORY: No significant cardiopulmonary disease reported. ALLERGIES: None known. MEDICATIONS: He is on Zytiga 1000 mg daily, albuterol q.6 hours p.r.n., Antivert 25 mg 3 times a day, Symbicort 160/4.5 two puffs twice a day, Claritin 10 mg daily, Colace 100 mg twice a day, Ecotrin 81 mg daily, prednisone 5 mg twice a day, Synthroid 112 mcg daily. REVIEW OF SYSTEMS: No headache, no rhinitis. Has some cough, shortness of breath. No chest pain. No nausea, vomiting, or diarrhea. No leg swelling, PHYSICAL EXAMINATION: GENERAL: Lying in the bed, no acute distress. VITAL SIGNS: Temperature is 98, heart rate 69, respiratory rate is 20, blood pressure 163/89, and pulse ox 98% on nasal cannula. HEENT: Moist mucous membrane. Crowded airway. Mallampati score is 4. NECK: Supple. No JVD. LUNGS: Prolonged expiratory phase. HEART: S1 and S2. ABDOMEN: Soft and nontender. No organomegaly. EXTREMITIES: There is no edema. NEUROLOGIC: Awake, alert, follows simple commands. LABORATORY DATA: Shows hemoglobin 11.5, hematocrit 36.1, WBC 6.5, and platelet count is 162. INR 0.99, PTT 25. Sodium is 139, potassium is 4.3, chloride is 103, bicarbonate is 29, BUN is 18, creatinine is 0.7, glucose is 111, and calcium is 9.1. AST 21, ALT 26, alk phos is 140, albumin is 3.9. TSH 0.17. Cholesterol is 219. Microbiology: Urine culture has Staphylococcus, coagulase negative. Chest x-ray done in the ER shows emphysematous changes, minimal cardiomegaly, possible concomitant pulmonary venous congestion. IMPRESSION AND PLAN: Chronic obstructive lung disease, sleep apnea syndrome with central and obstructive component, pulmonary hypertension, hypothyroid, hyperlipidemia, hypertension. From a pulmonary point of view, we will start IV and inhaled bronchodilator, antibiotics. We will place him on BiPAP with backup rate. Upon discharge, we will follow up with the vendor to ensure that he gets his home ventilator. Fall precautions. Gastric prophylaxis. DVT prophylaxis. We will follow with you. Christy aBrtlett MD
[2016-10-13] MEDS: MethylPREDNISolone 40 mg Vial IVP SCH ×2 (09:35→21:46)
[2016-10-13] MEDS: ABIRATERONE ACETATE 1000 MG PO SCH (09:37)
[2016-10-13] MEDS: Albuterol 0.083% Inhal Sol (2.5 mg/3 mL) UD INH PRN ×2 (11:05→16:18)
[2016-10-13] MEDS: Budesonide/Formoterol Fumarate [Symbicort 160-4.5 Mcg Inhaler] (HOME MED) INH SCH (11:49)
--- NOTE | 2016-10-13 22:28 | PN ---
DATE: 10/13/2016 PULMONARY PROGRESS NOTE REFERRING PHYSICIAN: Megan Sheth MD SUBJECTIVE: The patient is sitting at the side of the bed, having dinner. Night was unremarkable. Tolerated BiPAP well, feeling some dizzy spell, breathing is better. No nausea. No vomiting. No diarrhea. No leg pain or leg swelling. PHYSICAL EXAMINATION: GENERAL: No acute distress. VITAL SIGNS: Temperature 98,heart rate is 70, respiratory rate is 20, blood pressure 129/78 and pulse ox 96% on 2 liters nasal cannula. HEENT: Moist mucous membranes. Small oral cavity. Crowded airway. NECK: Supple. No JVD. LUNGS: Fair airflow with rhonchi. HEART: S1 and S2. ABDOMEN: Soft and nontender. No organomegaly. EXTREMITIES: No edema. NEUROLOGICAL: Awake and alert, follows simple commands. MEDICATIONS: He is on Zytiga 1000 mg daily, albuterol/Atrovent nebulizer q.6 hours, Antivert 25 mg 3 times a day. He also receiving Claritin 10 mg daily, Colace 100 mg twice a day, doxycycline 100 mg daily, Ecotrin 81 mg daily, Solu-Medrol 20 mg q. 12 hours and Synthroid 112 mcg daily. LABORATORY DATA: Reviewed no new lab is available. IMPRESSION AND PLAN: Chronic obstructive lung disease, sleep apnea syndrome also have a combination of central and obstructive apnea, pulmonary hypertension, hypothyroid, hyperlipidemia and hypertension. Continue bilevel positive airway pressure while sleeping. Continue IV inhaled bronchodilator, gastric prophylaxis and deep venous thrombosis prophylaxis. We will trying to get him outpatient non-invasive ventilation at night. Thank you and we will follow with you. Christy Bartlett MD
--- NOTE | 2016-10-14 02:53 | PN ---
DATE: 10/13/2016 SUBJECTIVE: The patient is 81 years old male. The patient was seen and examined at the bedside, looking comfortable. No nausea or vomiting. No diarrhea. No hematuria or hematochezia. No swelling of the leg. No chest pain. No palpitation. No headache or dizziness. PHYSICAL EXAMINATION: VITAL SIGNS: Temperature 98,heart rate is 70 and respiratory rate is 20. HEENT: Head normocephalic and atraumatic. Eyes, PERRLA. Extraocular muscles intact. Conjunctivae are clear. Nose is patent. Mucous membrane moist. NECK: Supple. No carotid bruits. No JVD or thyromegaly. CHEST: Bilateral symmetrical. HEART: S1 and S2 positive. LUNGS: Clear to auscultation. ABDOMEN: Soft. Bowel sounds positive. No organomegaly. EXTREMITIES: No edema and no cyanosis. NEUROLOGICAL: The patient is awake and alert. Moving all 4 extremities. No focal deficit. MEDICATIONS: Zytiga, albuterol/atorvastatin, Antivert. We will continue Claritin and Montelukast, Colace, doxycycline and Solu-Medrol. ASSESSMENT AND PLAN: Mr. Kit Vargas is 81 years old male with chronic obstructive lung disease, sleep apnea syndrome, has central and peripheral apnea, pulmonary hypertension, hypothyroidism, hypercholesterolemia, hyperlipidemia. We will continue present treatment. Gastrointestinal and deep venous thrombosis prophylaxis. Repeat labs. We will follow. Megan Sheth MD MTDD
[2016-10-14] MEDS: Levothyroxine 112 MCG TAB PO SCH (06:02)
[2016-10-14 07:41] LABS: ALB/GLOB RATIO 1.3 (1.1-1.8); ALKALINE PHOSPHATASE 143 U/L (38-133); ALT/SGPT 22 U/L (7-56); AST/SGOT 20 U/L (15-59); BILIRUBIN,TOTAL 0.5 mg/dL (0.2-1.3); BLOOD UREA NITROGEN 18 mg/dL (7-21); CALCIUM 9.6 mg/dL (8.4-10.5); CARBON DIOXIDE 30 mmol/L (21-33); CHLORIDE 102 mmol/L (98-107); GFR AFRICAN-AMERICAN > 60; GLUCOSE,RANDOM 128 mg/dL (70-110); POTASSIUM 4.6 mmol/L (3.6-5.0); SODIUM 140 mmol/L (132-148); TOTAL PROTEIN 7.2 g/dL (5.8-8.3)
[2016-10-14] MEDS: MethylPREDNISolone 40 mg Vial IVP SCH ×2 (10:39→21:12)
[2016-10-14] MEDS: Budesonide/Formoterol Fumarate [Symbicort 160-4.5 Mcg Inhaler] (HOME MED) INH SCH ×2 (10:40→17:56)
[2016-10-14] MEDS: ABIRATERONE ACETATE 1000 MG PO SCH (10:40)
[2016-10-14] MEDS ORDERED: Benzocaine/Menthol (Cepacol) Lozenge MT PRN (17:18)
[2016-10-14] MEDS ORDERED: MethylPREDNISolone 40 mg Vial IVP SCH (22:00)
--- NOTE | 2016-10-15 00:03 | PN ---
DATE: 10/14/2016 PULMONARY PROGRESS NOTE REFERRING PHYSICIAN: Dr. Sheth. SUBJECTIVE: The patient is sitting at the side of the bed. Night was unremarkable, tolerated CPAP well and feels better. No nausea. No vomiting or diarrhea. No leg pain or leg swelling. Denies dizzy spell today. OBJECTIVE: GENERAL: No distress. VITAL SIGNS: Temperature 98, heart rate 70, respiratory rate 20, blood pressure 140/72 and pulse oximetry 99% on 2 L of nasal cannula. HEENT: Moist mucous membranes. Crowded airway. Mallampati score is 4. NECK: Supple. No JVD. LUNGS: Prolonged expiratory phases on breathing. HEART: S1 and S2. ABDOMEN: Soft. Nontender. No organomegaly. EXTREMITIES: There is no edema. NEUROLOGIC: Awake, alert, follows simple commands. MEDICATIONS: He is on Zytiga 1000 mg, also albuterol/Atrovent nebulizer q. 6 hours p.r.n., Antivert 25 mg 3 times a day, Cepacol lozenges p.r.n. basis, Claritin 10 mg daily, Colace 100 mg twice a day, doxycycline 100 mg twice a day, Ecotrin 81 mg daily, Solu-Medrol 10 mg q.12h. and Synthroid 112 mcg daily. LABORATORY DATA: Show sodium 140, potassium 4.6, chloride 102, bicarbonate 30, BUN 18, creatinine 0.7, glucose 128, calcium 9.6, AST 20, ALT 22, alk phos is 143 and albumin is 4.1. IMPRESSION AND PLAN: Chronic obstructive lung disease, sleep apnea syndrome which consists of central and obstructive apnea, pulmonary hypertension, hypothyroid, hyperlipidemia. Spoke to vendor today. The patient will have his noninvasive ventilation for night once discharged home. Decrease Solu-Medrol to 20 q.12 h., antibiotics, gastric prophylaxis, deep venous thrombosis prophylaxis and fall precaution. We will follow with you. Christy Bartlett MD
[2016-10-15] MEDS: Levothyroxine 112 MCG TAB PO SCH (05:30)
--- NOTE | 2016-10-15 05:30 | PN ---
DATE: 10/14/2016 SUBJECTIVE: The patient was seen and examined at the bedside. Complaining of shortness of breath and coughing. No nausea, vomiting,and diarrhea. No hematuria or hematochezia. No swelling of the leg. No chest pain. No palpitation. No headache, no dizziness. PHYSICAL EXAMINATION: VITAL SIGNS: Temperature 97.8, pulse 70, blood pressure 140/72, and respiratory rate 20. HEENT: Head normocephalic and atraumatic. Eyes, PERRLA. Extraocular muscles intact. Conjunctivae are clear. Nose is patent. Mucous membrane moist. NECK: Supple. No carotid bruits, JVD, or thyromegaly. CHEST: Bilateral symmetrical. HEART: S1 and S2 positive. LUNGS: Clear to auscultation. ABDOMEN: Soft. Bowel sounds positive. No organomegaly. EXTREMITIES: No edema and no cyanosis. NEUROLOGICAL: The patient is awake and alert. Moving all 4 extremities. No focal deficit. MEDICATIONS: Zytiga, albuterol, Antivert, Symbicort, Cepacol, Claritin, Colace, doxycycline, Ecotrin, Solu-Medrol, and Synthroid. LABORATORY DATA: We do not have recent labs today, but I reviewed old labs. Sodium of 140, potassium 4.6, BUN 18, creatinine 0.7, glucose 128. Alkaline phosphate is 143. ASSESSMENT AND PLAN: Mr. Kit Vargas is 81 years old male with chronic obstructive lung disease, sleep apnea syndrome, has combination of central versus peripheral sleep apnea, pulmonary hypertension, hypothyroidism, and hypercholesterolemia. Continue bilevel positive airway pressure while sleeping, obesity,and hyperglycemia. Continue inhaled bronchodilators, gastric and deep vein thrombosis prophylaxis. Dr. Bartlett's team is working to get as outpatient noninvasive ventilation at night. Meanwhile, GI and DVT prophylaxis. Repeat labs. Megan Sheth MD
[2016-10-15 08:01] VITALS: BP 140/92; PULSE 63; RESP 18; TEMP 97.6; O2SAT 100
[2016-10-15] MEDS ORDERED: MethylPREDNISolone 40 mg Vial IVP SCH (10:06)
--- NOTE | 2016-10-16 17:28 | DS ---
CHIEF COMPLAINT: Shortness of breath, coughing, dizziness. HISTORY OF PRESENT ILLNESS: The patient is an 81-year-old male with past medical history of COPD, vertigo came to the emergency department complaining of shortness of breath, dizziness, and fatigue. Actually, he was seen in the emergency room 2 days ago before with the same complaints was discharged after giving nebulizer treatment. consult with Dr. Bartlett, oracle manager. Dr. Jayme Angel saw the patient, got Solu-Medrol nebulizers, felt better, discharged home to followup with primary care physician and oracle manager. PAST MEDICAL HISTORY: Asthma, sleep apnea, hypertension, hypercholesterolemia, hypothyroidism, prostate CA completed treated with chemotherapy and radiation therapy completed, history of unsteady gait using cane, gastroesophageal reflux disease, status post hysterectomy. FAMILY HISTORY: Father and mother noncontributory. HABITS: No drugs. No ethanol. Former smoker. ALLERGIES: Patient is not allergic to any medication. HOME MEDICATIONS Albuterol, levothyroxine, Zetia, meclizine, Symbicort, cetirizine, Dulcolax and prednisone. REVIEW OF SYSTEMS: The patient is examined on the bedside, looking comfortable. No nausea or vomiting. No hematemesis or hematochezia. No swelling of the legs. No chest pain. No palpitation. No headache. No dizziness. Shortness of breath is getting better. PHYSICAL EXAMINATION: VITAL SIGNS: Temperature is 97.6, pulse 63, blood pressure 145/92, respiratory rate 18. HEENT: Head normocephalic and atraumatic. Eyes, PERRLA. Extraocular muscles intact. Conjunctivae are clear. Nose is patent. Mucous membrane moist. NECK: Supple. No carotid bruits. No JVD or thyromegaly. CHEST: Bilateral symmetrical. HEART: S1 and S2 positive. LUNGS: Clear to auscultation. ABDOMEN: Soft. Bowel sounds positive. No organomegaly. EXTREMITIES: No edema and no cyanosis. NEUROLOGICAL: Patient is awake and alert. Moving all 4 extremities. No focal deficits. LABORATORY DATA: White blood cell 6.5, hemoglobin 11.5, hematocrit 36.1, and platelets 162. Sodium of 140, potassium 4.6, BUN 18, creatinine 0.8, glucose 128, alkaline phosphatase 143. ASSESSMENT AND PLAN: The patient is an 81-year-old male with anemia, hyperglycemia, increased alkaline phosphatase, chronic obstructive pulmonary disease exacerbation, obstructive sleep apnea syndrome, has got treatment from oracle manager, Solu-Medrol and bronchodilators. Sleep apnea syndrome is consistent with symptoms of sleep apnea, pulmonary hypertension, hyperthyroidism, hypercholesterolemia. Speak to today to get home CPR instrument with all accessories. Patient is doing better. Gastrointestinal and deep venous thrombosis prophylaxis. Repeat labs and followup. Megan Sheth MD MTDD
== END 2016-10-15 14:35 | disposition home or self-care (01) | DRG 192 ==
LOC: ED 18:37 → ERH 21:15 → 2RNO 22:16 → OBSVTOIN 10-13 11:34 → 3RSO 10-13 13:15
PROVIDERS: ADMIT Internal Medicine; ATTEND Internal Medicine
PROC: 5A09457 Assistance with Respiratory Ventilation, 24-96 Consecutive Hours, Continuous Positive Airway Pressure (ICD-10-PCS; principal; 2016-10-12)
DX: J44.1 Chronic obstructive pulmonary disease with (acute) exacerbation (principal); I27.2 Other secondary pulmonary hypertension; D64.9 Anemia, unspecified; I10 Essential (primary) hypertension; G47.33 Obstructive sleep apnea (adult) (pediatric); G47.31 Primary central sleep apnea; R73.9 Hyperglycemia, unspecified; R42 Dizziness and giddiness; K21.9 Gastro-esophageal reflux disease without esophagitis; E78.00 Pure hypercholesterolemia, unspecified; E03.9 Hypothyroidism, unspecified; R26.81 Unsteadiness on feet; K59.09 Other constipation; E78.5 Hyperlipidemia, unspecified; Z92.21 Personal history of antineoplastic chemotherapy; Z92.3 Personal history of irradiation; Z85.46 Personal history of malignant neoplasm of prostate; Z87.891 Personal history of nicotine dependence

== ENCOUNTER 2016-10-16 02:48 | Observation (INO) | payer MEDICARE, OTHER ==
--- NOTE | 2016-10-16 03:22 | ED PDOC ---
Arrival/HPI - General Time Seen by Provider: 10/16/16 03:14 Historian: Patient - History of Present Illness Narrative History of Present Illness (Text): 10/16/16 03:18 Sam Pantoja is an 81 year old male, whose past medical history includes COPD , sleep apnea, hypertension, hyperlipidemia, hypothyroidism, prostate cancer, and GERD, who presents to the Emergency department brought in by EMS complaining of chest pressure tonight. Patient also states he fell while at home and landed on right knee. Patient now complaining of discomfort to the area. Patient denies any fever, chills, shortness of breath, nausea, vomiting, diarrhea, urinary symptoms, back pain, neck pain, headache, dizziness, or any other complaints. Symptom Onset: Gradual Symptom Course: Unchanged Activities at Onset: Light Context: Home Past Medical History - Provider Review Nursing Documentation Reviewed: Yes - Infectious Disease Hx of Infectious Diseases: None - Cardiac Hx Cardiac Disorders: Yes Hx Hypertension: (denies) - Pulmonary Hx Respiratory Disorders: Yes Hx Chronic Obstructive Pulmonary Disease (COPD): Yes Hx Sleep Apnea: Yes - Neurological Hx Neurological Disorder: Yes Hx Dizziness: Yes (VERTIGO) - HEENT Hx HEENT Disorder: Yes - Renal Hx Renal Disorder: No - Endocrine/Metabolic Hx Endocrine Disorders: Yes Hx Diabetes Mellitus Type 2: (denies) Hx Hypothyroidism: Yes - Hematological/Oncological Hx Blood Disorders: Yes Hx Cancer: Yes (PROSTATE-takes Zytiga) - Integumentary Hx Dermatological Disorder: No - Musculoskeletal/Rheumatological Hx Musculoskeletal Disorders: Yes Hx Falls: No Hx Unsteady Gait: Yes (CANE) - Gastrointestinal Hx Gastrointestinal Disorders: Yes (CONSTIPATION) - Genitourinary/Gynecological Hx Genitourinary Disorders: Yes (self-catheterization at times) Hx Prostate Problems: Yes (PROSTATE CA) Other/Comment: cystoscopy - Psychiatric Hx Psychophysiologic Disorder: No Hx Substance Use: No - Anesthesia Hx Anesthesia Reactions: No Hx Malignant Hyperthermia: No Family/Social History - Physician Review Nursing Documentation Reviewed: Yes Family/Social History: Unknown Family HX Smoking Status: Former Smoker Hx Alcohol Use: No Hx Substance Use: No Allergies/Home Meds Allergies/Adverse Reactions: Allergies No Known Allergies Allergy (Verified 10/16/16 05:58) Home Medications: Home Meds Medication Instructions Recorded Confirmed Albuterol 0.083% [Albuterol 0.083% 1 inhaler INH PRN PRN 07/18/16 10/16/16 Inhal Geni (2.5 mg/3 ml) UD] Levothyroxine [Synthroid] 112 mcg PO DAILY 07/18/16 10/16/16 Abiraterone Acetate [Zytiga] 1,000 mg PO DAILY 08/03/16 10/16/16 Meclizine HCl [Motion Sickness 25 mg PO PRN PRN 08/03/16 10/16/16 Relief] Budesonide/Formoterol Fumarate 1 inh INH BID 10/11/16 10/16/16 [Symbicort 160-4.5 Mcg Inhaler] Cetirizine HCl [Cetirizine HCl] 1 tab PO DAILY 10/11/16 10/16/16 Docusate Sodium [Dulcolax Stool 1 tab PO BID 10/11/16 10/16/16 Softener] Prednisone [Prednisone] 5 mg PO BID 10/11/16 10/16/16 Albuterol Sulfate [Proventil Hfa] 6.7 gm IH PRN PRN 10/12/16 10/16/16 Simvastatin 40 mg PO HS 10/12/16 10/16/16 Review of Systems - Physician Review All systems were reviewed & negative as marked: Yes - Review of Systems Constitutional: Normal. absent: Fevers Eyes: Normal ENT: Normal Respiratory: Normal. absent: SOB Cardiovascular: Chest Pain Gastrointestinal: Normal. absent: Abdominal Pain, Nausea, Vomiting Genitourinary Male: Normal. absent: Dysuria, Frequency, Hematuria, Urinary Output Changes Musculoskeletal: Arthralgias (+right knee discomfort). absent: Back Pain, Neck Pain Skin: Normal. absent: Rash Neurological: Normal. absent: Headache, Dizziness Endocrine: Normal Hemo/Lymphatic: Normal Psychiatric: Normal Physical Exam Vital Signs Reviewed: Yes Vital Signs Temp Pulse Resp BP Pulse Ox 10/16/16 05:57 62 17 136/85 96 10/16/16 04:14 97.9 F 62 16 139/73 96 Temperature: Afebrile Blood Pressure: Normal Pulse: Regular Respiratory Rate: Normal Appearance: Positive for: Well-Appearing, Non-Toxic, Comfortable Pain Distress: None Mental Status: Positive for: Alert and Oriented X 3 - Systems Exam Head: Present: Atraumatic, Normocephalic Pupils: Present: PERRL Extroacular Muscles: Present: EOMI Conjunctiva: Present: Normal Mouth: Present: Moist Mucous Membranes Neck: Present: Normal Range of Motion Respiratory/Chest: Present: Clear to Auscultation, Good Air Exchange. No: Respiratory Distress, Accessory Muscle Use Cardiovascular: Present: Regular Rate and Rhythm, Normal S1, S2. No: Murmurs Abdomen: Present: Normal Bowel Sounds. No: Tenderness, Distention, Peritoneal Signs Back: Present: Normal Inspection Upper Extremity: Present: Normal Inspection. No: Cyanosis, Edema Lower Extremity: Present: Normal Inspection. No: Edema Neurological: Present: GCS=15, CN II-XII Intact, Speech Normal Skin: Present: Warm, Dry, Normal Color. No: Rashes Psychiatric: Present: Alert, Oriented x 3, Normal Insight, Normal Concentration Medical Decision Making ED Course and Treatment: 10/16/16 03:19 Impression: 81 year old male complaining of chest pressure tonight. Also complaining of right knee discomfort s/p fall. Plan: -- EKG -- Chest X-ray -- Labs, cardiac enzymes -- XR Right Knee -- Reassess and disposition Prior Visits: Notes and results from previous visits were reviewed. On 10/11/2016, pt was seen in the Emergency department for shortness of breath. Pt was admitted to the hospital for further evaluation. Progress Notes: Reviewed EKG, NSR at 65 bpm. LAD. Non-specific T wave changes. 10/16/16 05:39 Reviewed radiology, Chest X-ray show no acute processes. XR Right Knee negative for fracture. 10/16/16 05:[address] Sheth, who is aware and agrees with plan. Accepts pt in to her service. Pt will go to Telemetry observation for chest pain. Requests Dr. Dawson on consult. Pt agreeable with plan. - Lab Interpretations Lab Results: 10/16/16 04:35 10/16/16 04:35 Lab Results 10/16/16 04:35: WBC 8.7 D, RBC 4.05, Hgb 12.3 L, Hct 38.4 L, MCV 94.8, MCH 30.4 , MCHC 32.0, RDW 13.9, Plt Count 130, MPV 11.9 H 10/16/16 04:35: Sodium 138, Potassium 4.3, Chloride 102, Carbon Dioxide 25, Anion Gap 15, BUN 19, Creatinine 0.6, Est GFR ( Amer) > 60, Est GFR (Non- Af Amer) > 60, Random Glucose 121 H, Calcium 9.6, Total Bilirubin 0.6, AST 20, ALT 23, Alkaline Phosphatase 141 H, Lactate Dehydrogenase 528, Total Creatine Kinase 53, Troponin I < 0.01, Total Protein 7.1, Albumin 3.9, Globulin 3.2, Albumin/Globulin Ratio 1.2 10/16/16 04:35: PT 10.9, INR 1.01, APTT 25.1 I have reviewed the lab results: Yes - RAD Interpretation Radiology Orders: 10/16/16 03:19 CHEST ONE VIEW [RAD] Stat 10/16/16 03:21 KNEE W PATELLA RIGHT 3 VIEW [RAD] Stat Management Rep: ED Physician, Radiologist - EKG Interpretation Interpreted by ED Physician: Yes Type: 12 lead EKG - Medication Orders Current Medication Orders: Discontinued Medications Aspirin (Aspirin) 325 mg PO ONCE STA Stop: 10/16/16 04:20 Last Admin: 10/16/16 05:20 Dose: 325 mg Morphine Sulfate (Morphine) 2 mg IVP STAT STA Stop: 10/16/16 04:20 Last Admin: 10/16/16 05:21 Dose: 2 mg - Scribe Statement The provider has reviewed the documentation as recorded by the Latisha Ash Provider Scribe Attestation: All medical record entries made by the Scribsurinder were at my direction and personally dictated by me. I have reviewed the chart and agree that the record accurately reflects my personal performance of the history, physical exam, medical decision making, and the department course for this patient. I have also personally directed, reviewed, and agree with the discharge instructions and disposition. Disposition/Present on Arrival - Present on Arrival Any Indicators Present on Arrival: No History of DVT/PE: No History of Uncontrolled Diabetes: No Urinary Catheter: No History of Decub. Ulcer: No History Surgical Site Infection Following: None - Disposition Have Diagnosis and Disposition been Completed?: Yes Diagnosis: Chest pain Disposition: HOSPITALIZED Disposition Time: 05:53 Patient Plan: Observation Patient Problems: Current Active Problems Problem Status Onset Chest pain Acute Condition: STABLE
[2016-10-16] MEDS ORDERED: Morphine 2 mg/ml ISec IVP STA (04:19)
[2016-10-16 04:49] LABS: HEMATOCRIT 38.4 % (42.0-52.0); MEAN CELL VOLUME 94.8 fl (80.0-105.0); MEAN CORPUSCULAR HEMOGLOBIN 30.4 pg (25.0-35.0); MEAN PLATELET VOLUME 11.9 fl (7.0-11.0); RED CELL DISTRIBUTION WIDTH 13.9 % (11.5-14.5); WHITE BLOOD COUNT 8.7 10^3/ul (4.5-11.0)
[2016-10-16 04:59] LABS: INR 1.01 (0.93-1.08); PARTIAL THROMBOPLASTIN TIME 25.1 Seconds (23.7-30.8)
[2016-10-16 05:01] LABS: ALB/GLOB RATIO 1.2 (1.1-1.8); ALKALINE PHOSPHATASE 141 U/L (38-133); ALT/SGPT 23 U/L (7-56); AST/SGOT 20 U/L (15-59); BILIRUBIN,TOTAL 0.6 mg/dL (0.2-1.3); BLOOD UREA NITROGEN 19 mg/dL (7-21); CALCIUM 9.6 mg/dL (8.4-10.5); CARBON DIOXIDE 25 mmol/L (21-33); CHLORIDE 102 mmol/L (98-107); GFR AFRICAN-AMERICAN > 60; GLUCOSE,RANDOM 121 mg/dL (70-110); POTASSIUM 4.3 mmol/L (3.6-5.0); SODIUM 138 mmol/L (132-148); TOTAL PROTEIN 7.1 g/dL (5.8-8.3)
[2016-10-16 05:12] LABS: TROPONIN I < 0.01 ng/mL
[2016-10-16] MEDS ORDERED: Albuterol HFA 90 mcg/actuation (8 g) IH PRN (09:08)
[2016-10-16] MEDS ORDERED: Albuterol 0.083% Inhal Sol (2.5 mg/3 mL) UD INH PRN ×2 (09:08→09:26)
[2016-10-16] MEDS ORDERED: Albuterol 0.083% Inhal Sol (2.5 mg/3 mL) UD INH SCH (09:25)
[2016-10-16] MEDS ORDERED: Levothyroxine 112 MCG TAB PO SCH (10:00)
[2016-10-16] MEDS ORDERED: ABIRATERONE ACETATE 500 MG PO SCH ×2 (10:00→12:05)
[2016-10-16] MEDS: Symbicort 160-4.5 Mcg Inhaler (HOME MED) INH SCH ×2 (10:17→19:51)
--- NOTE | 2016-10-16 13:38 | RAD ---
PROCEDURE: CHEST RADIOGRAPH, 1 VIEW HISTORY: pain COMPARISON: None available. 10/11/2016 FINDINGS: LUNGS: Re- demonstrated are apparent emphysematous changes - upper lobe predominance with large right upper lobe bulla. . Mild right basilar atelectasis; developing infiltrate could be excluded followup radiographs PLEURA: No pneumothorax or pleural fluid seen. CARDIOVASCULAR: Normal. OSSEOUS STRUCTURES: Mild degenerative changes both shoulder girdles VISUALIZED UPPER ABDOMEN: Normal. OTHER FINDINGS: None. IMPRESSION: Re- demonstrated are apparent emphysematous changes - upper lobe predominance with large right upper lobe bulla. . Mild right basilar atelectasis; developing infiltrate could be excluded followup radiographs
--- NOTE | 2016-10-16 13:59 | RAD ---
PROCEDURE: Right Knee Radiographs. AP sunrise and cross-table lateral view right knee performed. HISTORY: injury COMPARISON: None. FINDINGS: BONES: No evidence of acute displaced fracture nor dislocation. Osseous structures appear grossly intact. JOINTS: Joint spaces relatively preserved. . On. Tiny posterior superior patella osteophyte. There also appears to be a very tiny anterior superior patella enthesophyte. JOINT EFFUSION: Small suprapatellar joint effusion. OTHER FINDINGS: None. IMPRESSION: No evidence of acute displaced fracture nor dislocation. Small suprapatellar joint effusion.
--- NOTE | 2016-10-16 21:06 | CARD ---
APPROVED REPORT EKG Measurement Heart [id number] <Conclusion> Normal sinus rhythm Left axis deviation Nonspecific T wave abnormality Abnormal ECG
--- NOTE | 2016-10-17 02:04 | CON ---
DATE: 10/16/2016 REASON FOR CONSULTATION: Chest pain. HISTORY OF PRESENT ILLNESS: The patient is an 81-year-old male who is known to have hypertension, hyperlipidemia, COPD, hypothyroidism, prostate cancer, [facility] that [facility] has 3 spots on his bones. The patient was worked by Dr. Bartlett, pulmonary. The patient has sleep apnea and CPAP machine has been ordered, but he did not receive it yet. The patient is now admitted with pain across the lower rib cage across the chest. He said pain was like tightness, it was at rest and he denies any exertional chest pains. He had a stress test on 08/22/2016 and the scan was reported normal SPECT myocardial study with normal ejection fraction of 72%, normal gated wall motion of left ventricle. The patient had echocardiogram 08/04/2016, which showed normal left ventricle, normal left ventricular ejection fraction 67%, RVSP 40 mmHg, grade 1 abnormal relaxation pattern suggestive of diastolic dysfunction, mild pulmonary hypertension as mentioned, mild tricuspid regurgitation, mitral regurgitation. PAST HISTORY: As mentioned before. The patient has COPD, hypertension, hyperlipidemia, CA of the prostate. He stated that he had a TUR. PERSONAL HISTORY: Used to smoke 2 to 3 packs a day for 30 years and he stopped about 20 years ago. Drinks socially. ALLERGIES: DENIES ANY ALLERGIES. HOME MEDICATIONS: Included albuterol inhaler, Ecotrin 81 mg daily, meclizine 25 mg p.r.n. for vertigo, Synthroid 112 mcg p.o. daily, simvastatin 40 daily and prednisone 5 mg b.i.d. The patient's EKG showed regular sinus rhythm, left anterior hemiblock, no ST-T changes. Chest x-ray showed emphysematous changes, upper lobe predominance with large right upper lobe bulla, mild right basilar atelectasis. PHYSICAL EXAMINATION: VITAL SIGNS: Blood pressure 136/85, respirations 17, pulse 62, temperature 97.9. HEENT: Head is normocephalic. Eyes, pupils normal. Conjunctivae normal. NECK: JVP low. Carotids equal. Thorax AP diameter normal. LUNGS: Clear. CARDIOVASCULAR: S1 and S2. ABDOMEN: Soft and nontender. No organomegaly. EXTREMITIES: No clubbing, no cyanosis. LABORATORY DATA: WBC 8.7, hemoglobin 12.3, hematocrit 38.4, platelet 130. Sodium 138, potassium 4.3, BUN 19, creatinine 0.6, AST 20, ALT 23. Total protein 7.1, albumin 3.9, troponin is negative. EKG: RS, left anterior hemiblock, no ST-T changes. Chest x-ray emphysematous with bulla formation. DIAGNOSES: Chest pain; chronic obstructive pulmonary disease with bulla formation; prostate cancer, probably with metastasis, at [facility], he was told there are 3 spots on the bones; sleep apnea; obesity; hypertension; hyperlipidemia. PLAN: When the patient arrived here, he had chest pain but there is no EKG changes on recent stress test and echo, did not show any significant abnormality and LV ejection fraction and nuclear scans were normal. At the present time, we will treat the pain symptomatically, and also he does have chest pain on exertion. If he continued to have repeated episode of this chest pain then one can consider cardiac catheterization but at present, we will treat it symptomatically and also troponins are negative. We will continue to follow with. Christy Dawson MD
--- NOTE | 2016-10-17 03:34 | CON ---
DATE: 10/16/2016 REASON FOR CONSULT: Chronic obstructive lung disease, sleep apnea syndrome. HISTORY OF PRESENT ILLNESS: This is an 81 years old male, well known to me for previous admission and from the office with chronic obstructive lung disease, sleep apnea syndrome which is consistent of central and obstructive component, history of chronic vertigo, hypothyroid, prostate cancer, readmitted to the ER because of recurrent shortness of breath. He was supposed to get his noninvasive ventilation at home, but apparently he missed the call and does not have yet. Since admission, he feels better with decreased shortness of breath. No chest pain, no nausea, no vomiting, no diarrhea, leg pain or leg swelling. PAST MEDICAL HISTORY: As per history of present illness. SOCIAL HISTORY: Stopped smoking recently. Denied any alcohol use. FAMILY HISTORY: No significant cardiopulmonary disease reported. ALLERGIES: NONE KNOWN. MEDICATIONS: He is on Zytiga 1000 mg daily which is 500 two tablets, DuoNeb q.6 hours p.r.n., Antivert 25 mg three times a day p.r.n., Claritin 10 mg daily, Colace 100 mg twice a day, aspirin 81 mg daily, Lipitor 20 mg at bedtime, prednisone 5 mg twice a day, Symbicort 160/4.5 two puffs twice a day, and Synthroid 112 mcg daily. REVIEW OF SYSTEMS: No headache, no rhinitis, no chest pain. Breathing is better. No nausea, no vomiting, diarrhea, leg pain or leg swelling. PHYSICAL EXAMINATION GENERAL: In no acute distress. VITAL SIGNS: Temperature is 98, heart rate is 69, respiratory rate is 20, blood pressure 107/67, and pulse ox 97% on 2 L nasal cannula. HEENT: Moist mucous membrane. Crowded airway. Mallampati score is 4. NECK: Supple. No JVD. LUNGS: Has fair airflow with few rhonchi. HEART: S1 and S2. ABDOMEN: Soft and nontender. No organomegaly. EXTREMITIES: No edema. NEUROLOGIC: Awake and alert. Follows simple commands. LABORATORY DATA: Had a chest x-ray done on admission which shows emphysema of upper lobe predominance with large right upper lobe bulla, mild right basilar atelectasis. IMPRESSION AND PLAN: Chronic obstructive lung disease; sleep apnea syndrome, had the both obstructive and central component; hypertension; hypothyroid; and hyperlipidemia. Apparently still do not have his noninvasive ventilation at home which hopefully can be given on Monday and he could be discharged. Continue p.o. and inhaled bronchodilators, sleep apnea precaution, gastric prophylaxis, DVT prophylaxis, and fall precaution. Thank you and we will follow with you. Christy Bartlett MD
[2016-10-17] MEDS ORDERED: Levothyroxine 112 MCG TAB PO SCH (06:00)
--- NOTE | 2016-10-17 06:14 | HP ---
CHIEF COMPLAINT: Chest pain and shortness or breath. HISTORY OF PRESENT ILLNESS: Mr. Sam Pantoja is an 81-year-old male with past medical history of COPD, sleep apnea, hypertension, hypercholesterolemia, hypothyroidism, prostate cancer, GERD, dyspepsia who was recently discharged from [facility] and even before that he has visited in ER, now came back complaining of chest pain. The nurse states that he fell while at home and landed on the right knee. The patient is now complaining of discomfort to the area. Denied any fever or chills. No nausea, vomiting or diarrhea. No urinary symptoms. No headache. PAST MEDICAL HISTORY: As above, COPD, asthma, sleep apnea syndrome, history of prostate cancer, vertigo, diabetes mellitus, denying hypothyroidism, prostate cancer takes Zytiga, ataxia, using cane, constipation, history of prostate CA. FAMILY HISTORY: Father and mother noncontributory. HABITS: Former smoker, now quit, no alcohol. No substance abuse. ALLERGIES: THE PATIENT IS NOT ALLERGIC WITH ANY MEDICATIONS. HOME MEDICATIONS: Albuterol, levothyroxine, Zytiga, meclizine, Symbicort, cetirizine, prednisone, albuterol, and simvastatin. REVIEW OF SYSTEMS: The patient seen and examined on the bedside. Complaining of shortness of breath once in a while chest pain. No nausea, vomiting, or diarrhea. No hematuria, hematochezia. No headache or dizziness. No swelling of the legs. PHYSICAL EXAMINATION: VITAL SIGNS: Temperature 97.9, pulse 62, respiratory rate 16, blood pressure 137/73, and pulse oximetry 96%. HEENT: Head is normocephalic and atraumatic. Eyes; PERRLA. Extraocular movements intact. Conjunctivae clear. Nose patent. NECK: Supple. No carotid bruits, JVD or thyromegaly. CHEST: Bilaterally symmetrical. HEART: S1 and S2 positive. LUNGS: Clear to auscultation. ABDOMEN: Soft. Positive bowel sounds present. No organomegaly. EXTREMITIES: No edema, no cyanosis. NEUROLOGIC: The patient is awake, alert. Moving all 4 extremities. No focal deficits. LABORATORY DATA: White blood cells 8.7, hemoglobin 12.3, hematocrit 38.4, and platelets 130. Sodium 138, potassium 4.3, BUN 19, creatinine 0.6, and glucose of 151. ASSESSMENT AND PLAN: Mr. Sam Pantoja is an 81-year-old male with anemia, hyperglycemia, came with chest pain and status post fall on the right knee. Chest x-rays done and knee x-rays done. According to the knee x-ray no evidence of acute displaced fracture nor dislocation, small suprapatellar joint effusion. Reviewed chest x-ray by me are apparent emphysematous changes, upper lobe predominance with large right upper lobe bullae, mild right basilar atelectasis developing infiltrates could exclude the following radiographs, history of prostate cancer, sleep apnea syndrome, hypertension, hypothyroidism, gastroesophageal reflux disease, dyspepsia. We admitted the patient. Cardiology consult called. Pulmonary consult called. Daily the patient is in need of rehab because of ataxia and fall. Getting Antivert for dizziness, Colace for constipation, Lipitor for hypercholesterolemia. GI and DVT prophylaxis, repeat labs. Megan Sheth MD MTDD
[2016-10-17 06:43] VITALS: O2SAT 100
[2016-10-17] MEDS ORDERED: ABIRATERONE ACETATE 1000 MG PO SCH (07:30)
[2016-10-17 12:27] VITALS: RESP 19
[2016-10-17] MEDS: Symbicort 160-4.5 Mcg Inhaler (HOME MED) INH SCH (12:37)
[2016-10-17] MEDS ORDERED: POLYETHYLENE GLYCOL 3350 17 GM/Dose PACKET PO SCH (14:15)
[2016-10-17 18:35] VITALS: PULSE 64
[2016-10-17 18:49] VITALS: BP 135/74; TEMP 97.6
--- NOTE | 2016-10-17 21:51 | PN ---
DATE: 10/17/2016 LOCATION: Patient in room 271, bed 2. REASON FOR CONSULTATION: Chest pain. SUBJECTIVE: Patient is chest pain-free today, has no chest pain. Denies any shortness of breath or palpitation. PHYSICAL EXAMINATION: VITAL SIGNS: Blood pressure 136/86, respirations 19, pulse 75, temperature 98.1. HEENT: Head is normocephalic. Eyes: Pupils normal. Conjunctiva normal. Nose and throat normal. NECK: JVP low. Carotids are equal. THORAX: AP diameter normal. LUNGS: Clear. CARDIOVASCULAR: S1 and S2. ABDOMEN: Soft, nontender. No organomegaly. Bowel sounds normal. EXTREMITIES: No clubbing, no cyanosis. LABORATORY DATA: WBC 8.7, hemoglobin 12.3, hematocrit 38.4, platelets 130, sodium 138, potassium 4.3, BUN 19, creatinine 0.6. AST 20, ALT 23. Troponin negative. Troponin on admission also negative and the stat one done today also was negative. Patient had stress test on 09/06/2016, with normal SPECT myocardial study, ejection fraction 72%. Echo on 08/04/2016, which showed normal LV ejection fraction of 67% grade I abnormal relaxation pattern suggestive of diastolic dysfunction, mild pulmonary hypertension, mild tricuspid regurgitation, mild mitral regurgitation. DIAGNOSES: Chest pain, chronic obstructive pulmonary disease with bullae formation, prostatic cancer, probably metastatic because the patient states that we had told him there are three spots on the bones. Sleep apnea, obesity, hypertension, hyperlipidemia. Patient also had a fall at home. Patient has dizziness, vertigo, and also unsteady gait, walks with a cane. PLAN: Initial troponin negative. I repeated just now a stat troponin, which is also negative; so at this time, we will treat the patient's chest pain symptomatically. If he continues to have chest pain, then cardiac catheterization will be considered, and the patient had recent stress test, which was negative with normal LV ejection fraction. Continue aspirin 81 mg daily, Lipitor 20 daily, prednisone 5 b.i.d., Synthroid 112 mcg daily, meclizine 25 t.i.d. p.r.n. DuoNeb hand nebulizer therapy. We will follow with you. Christy Dawson MD [facility] # [id number]
--- NOTE | 2016-10-18 00:33 | PN ---
DATE: 10/17/2016 REFERRING PHYSICIAN: Dr. Sheth. SUBJECTIVE: The patient is lying in the bed, head at 45 degrees, used BiPAP well. No headache, no rhinitis. Breathing is better. No nausea, no vomiting, and no diarrhea. No leg pain and no leg swelling. OBJECTIVE GENERAL: In no acute distress. VITAL SIGNS: Temperature is 98, heart rate is 75, respiratory rate is 20, blood pressure 136/86, and pulse ox is 99% on 2 liter nasal cannula. HEENT: Moist mucous membranes. Crowded airway. NECK: Supple. No JVD. LUNGS: Has fair airflow with some crackles. HEART: S1 and S2. ABDOMEN: Soft and nontender. No organomegaly. EXTREMITIES: There is no edema. NEUROLOGIC: Awake and alert. Follows simple commands. MEDICATIONS: He is on Zytiga 1000 mg daily, also on albuterol/Atrovent nebulizer q. 6 hours p.r.n., Antivert 25 mg 3 times a day p.r.n., Claritin 10 mg daily, Colace 100 mg twice a day, Ecotrin 81 mg daily, Lipitor 20 mg daily, Miralax 17 g daily, prednisone 5 mg twice a day, Synthroid 112 mcg daily. LABORATORY DATA: Shows troponin less than 0.1. IMPRESSION AND PLAN: Chronic obstructive lung disease, sleep apnea syndrome with obstructive central component, hypertension, hypothyroid, and hyperlipidemia. Pulmonary point of view, doing okay. May benefit from subacute services. The patient lives alone. Still waiting for noninvasive ventilation delivery at home. Gastric prophylaxis, DVT prophylaxis, fall precautions. Thank you, and will follow with you. Christy Bartlett MD
--- NOTE | 2016-10-25 00:17 | DS ---
CHIEF COMPLAINT: Chest pain, shortness of breath. HISTORY OF PRESENT ILLNESS: Mr. Sam Pantoja is an 81-year-old male with past medical history of COPD, sleep apnea, hypertension, hypercholesterolemia, hypothyroidism, prostate cancer, GERD, dyspepsia, was recently discharged from [facility], then came back to the emergency room complaining about chest pain, shortness of breath. We admitted the patient, did chest x-ray and knee x-rays, seen by , revenue field agent and Dr. Dawson, front desk monitor, felt better, discharged home, to follow up with primary care physician, revenue field agent, and front desk monitor. PAST MEDICAL HISTORY: COPD, asthma, sleep apnea syndrome, history of prostate cancer, vertigo, and diabetes mellitus. FAMILY HISTORY: Father and mother noncontributory. HABITS: Former smoking, now quit. No alcohol. No substance abuse. ALLERGIES: PATIENT IS NOT ALLERGIC WITH ANY MEDICATION. MEDICATIONS: Home medications reviewed by me. Zytiga, albuterol, Antivert, Claritin, Colace, Ecotrin, Lipitor, Miralax, and Synthroid. REVIEW OF SYSTEMS: The patient is seen and examined at the bedside, looking comfortable. No nausea, vomiting, or diarrhea. No hematuria or hematochezia. No headache or dizziness. No chest pain, no palpitation. Chest pain got better. PHYSICAL EXAMINATION: VITAL SIGNS: Temperature 98, heart rate 75, respiratory rate 20, blood pressure 136/86, pulse oximetry 99% on 2 L nasal cannula. HEENT: Head, normocephalic and atraumatic. Eyes, PERRLA. Extraocular muscles intact. Conjunctivae are clear. Nose is patent. Mucous membranes moist. NECK: Supple. No carotid bruits. No JVD or thyromegaly. CHEST: Bilateral symmetrical. HEART: S1 and S2 positive. LUNGS: Clear to auscultation. ABDOMEN: Soft, nontender. No organomegaly. EXTREMITIES: No edema and no cyanosis. NEUROLOGIC: Patient is awake and alert. Follows simple commands. LABORATORY DATA: White blood cells 8.7, hemoglobin 12.3, hematocrit 38.4, and platelets 130. Sodium 138, potassium 4.3, BUN 19, creatinine 0.6, glucose 121, AST 20, ALT 23, alkaline phosphatase 141. ASSESSMENT AND PLAN: Mr. Kit Vargas, 81 years old male with anemia, hyperglycemia, has multiple emergency room visits, multiple admissions, came with chronic obstructive pulmonary disease exacerbation, sleep apnea syndrome with obstructive-central component, hypertension, hypothyroidism, and hypercholesterolemia. According to Dr. Bartlett, patient needs rehab, tried, but not got approval for that, waiting for noninvasive ventilation delivery at home. Gastrointestinal and deep venous thrombosis prophylaxis given. Discharged home, follow up as outpatient. Megan Sheth MD
== END 2016-10-17 19:40 | disposition home or self-care (01) ==
LOC: ED 02:48 → ERH 05:57 → UNDOADMOB 05:57 → ERH 07:00 → 2RSO 08:40 → ERH 08:40 → INTOOBSV 10-17 07:05 → OBSVTOIN 10-17 07:05 → UNDODISOB 10-17 19:40
PROVIDERS: ADMIT Internal Medicine; ATTEND Internal Medicine
DX: J43.0 Unilateral pulmonary emphysema [MacLeod's syndrome] (principal); I10 Essential (primary) hypertension; E78.5 Hyperlipidemia, unspecified; E03.9 Hypothyroidism, unspecified; G47.30 Sleep apnea, unspecified; K21.9 Gastro-esophageal reflux disease without esophagitis; R42 Dizziness and giddiness; R26.81 Unsteadiness on feet; E66.9 Obesity, unspecified; D64.9 Anemia, unspecified; J98.11 Atelectasis; K59.00 Constipation, unspecified; Z85.46 Personal history of malignant neoplasm of prostate; Z91.81 History of falling; Z79.51 Long term (current) use of inhaled steroids; Z79.82 Long term (current) use of aspirin; Z79.52 Long term (current) use of systemic steroids; Z87.891 Personal history of nicotine dependence
CPT/HCPCS: 36415; 71010; 73562; 80053; 82550; 83615; 84484; 85027; 85610; 85730; 93005; 94640; 94660; 96374; 97161; 97530; 99285; G0378; G8978; G8979; J2270

== ENCOUNTER 2017-01-20 09:01 | Inpatient (IN) | payer MEDICARE, OTHER ==
[2017-01-20 09:08] VITALS: BMI 31.8
--- NOTE | 2017-01-20 09:21 | ED PDOC ---
Arrival/HPI - General Historian: Patient - History of Present Illness Time/Duration: 4-6 hours Symptom Onset: Sudden Symptom Course: Improving Quality: Tightness (Chest Tightness) Activities at Onset: Rest - General Chief Complaint: Shortness Of Breath Time Seen by Provider: 01/20/17 09:13 - History of Present Illness Narrative History of Present Illness (Text): 81 year old male with a PMHx of COPD, JH, Pulm HTN, Hypothyroidism, HLD, GERD, Vertigo, and Prostate CA presents with SOB that started this morning. Patient stated this morning he woke up short of breath. Patient felt like he was not getting enough air from his CPAP. Patient used symbicort which mildly relieved his symptoms. He then started to feel slightly dizzy and weak which prompted him call the Ambulance. Patient has been to the ED several times with similar symptoms. ROS: POSITIVES: SOB, mild generalized weakness and dizziness, sick contacts, nasal congestion, chest tightness NEGATIVES: Fevers, chills, Chest pain, palpitations, Abdominal Pain, N/V/D, constipation, urinary symptoms PMHx: As per HPI Meds: Reviewed. (Jay Jordan) Past Medical History - Provider Review Nursing Documentation Reviewed: Yes - Infectious Disease Hx of Infectious Diseases: None - Cardiac Hx Cardiac Disorders: Yes Hx Hypertension: (denies) - Pulmonary Hx Asthma: Yes Hx Chronic Obstructive Pulmonary Disease (COPD): Yes Hx Sleep Apnea: Yes - Neurological Hx Neurological Disorder: Yes Hx Dizziness: Yes (VERTIGO) - HEENT Hx HEENT Disorder: Yes - Renal Hx Renal Disorder: No - Endocrine/Metabolic Hx Diabetes Mellitus Type 2: (denies) Hx Hypothyroidism: Yes - Hematological/Oncological Hx Blood Disorders: Yes Hx Cancer: Yes (PROSTATE-takes Zytiga) - Integumentary Hx Dermatological Disorder: No - Musculoskeletal/Rheumatological Hx Musculoskeletal Disorders: Yes Hx Falls: No Hx Unsteady Gait: Yes (CANE) - Gastrointestinal Hx Gastrointestinal Disorders: Yes (CONSTIPATION) - Genitourinary/Gynecological Hx Genitourinary Disorders: Yes (self-catheterization at times) Hx Prostate Problems: Yes (PROSTATE CA) Other/Comment: cystoscopy - Psychiatric Hx Psychophysiologic Disorder: No Hx Substance Use: No - Anesthesia Hx Anesthesia Reactions: No Hx Malignant Hyperthermia: No Family/Social History - Physician Review Nursing Documentation Reviewed: Yes Family/Social History: Hypertension Smoking Status: Former Smoker Hx Alcohol Use: No Hx Substance Use: No Allergies/Home Meds Allergies/Adverse Reactions: Allergies No Known Allergies Allergy (Verified 01/20/17 09:23) Home Medications: Home Meds Medication Instructions Recorded Confirmed Albuterol 0.083% [Albuterol 0.083% 1 inhaler INH PRN PRN 07/18/16 01/20/17 Inhal Geni (2.5 mg/3 ml) UD] Levothyroxine [Synthroid] 112 mcg PO DAILY 07/18/16 01/20/17 Abiraterone Acetate [Zytiga] 1,000 mg PO DAILY 08/03/16 01/20/17 Meclizine HCl [Motion Sickness 25 mg PO PRN PRN 08/03/16 01/20/17 Relief] Budesonide/Formoterol Fumarate 1 inh INH BID 10/11/16 01/20/17 [Symbicort 160-4.5 Mcg Inhaler] Cetirizine HCl [Cetirizine HCl] 1 tab PO DAILY 10/11/16 01/20/17 Docusate Sodium [Dulcolax Stool 1 tab PO BID 10/11/16 01/20/17 Softener] Prednisone [Prednisone] 5 mg PO BID 10/11/16 01/20/17 Albuterol Sulfate [Proventil Hfa] 6.7 gm IH PRN PRN 10/12/16 01/20/17 Simvastatin 40 mg PO HS 10/12/16 01/20/17 Review of Systems - Physician Review All systems were reviewed & negative as marked: Yes (As per HPI) - Review of Systems Constitutional: Normal. absent: Fevers Cardiovascular: absent: Chest Pain Gastrointestinal: Normal. absent: Abdominal Pain Physical Exam Vital Signs Reviewed: Yes Temperature: Afebrile Blood Pressure: Hypertensive Pulse: Regular Respiratory Rate: Normal Appearance: Positive for: Well-Appearing, Non-Toxic, Comfortable Pain Distress: None Mental Status: Positive for: Alert and Oriented X 3 - Systems Exam Head: Present: Atraumatic, Normocephalic Extroacular Muscles: Present: EOMI Conjunctiva: Present: Normal Ears: Present: Normal Mouth: Present: Moist Mucous Membranes Respiratory/Chest: Present: Clear to Auscultation, Good Air Exchange. No: Respiratory Distress, Accessory Muscle Use, Wheezes, Rales, Rhonchi Cardiovascular: Present: Regular Rate and Rhythm, Normal S1, S2. No: Murmurs Abdomen: Present: Normal Bowel Sounds. No: Tenderness, Rebound, Guarding Upper Extremity: Present: Capillary Refill < 2s Lower Extremity: Present: Normal Inspection. No: Edema Neurological: Present: GCS=15, Speech Normal Skin: Present: Warm, Dry, Normal Color Psychiatric: Present: Alert, Oriented x 3, Normal Affect, Normal Mood Vital Signs Temp Pulse Resp BP Pulse Ox 01/20/17 14:48 87 17 127/62 97 01/20/17 12:51 66 18 143/83 17 L 01/20/17 11:35 63 16 140/62 99 01/20/17 09:45 18 96 01/20/17 09:13 98 F 68 97 H 151/75 H 100 Medical Decision Making ED Course and Treatment: 81 year old male with PMHx of COPD, JH, Pulm HTN, Hypothyroidism, HTN, HLD, GERD, Vertigo, and Prostate CA presents with SOB --CBC/CMP --CXR --EKG --UA --.Cardiac Enzymes --BNP --DuoNebs --Solumedrol --Reassess and Disposition Reassessment --D Dimer elevated, CTA ordered --UA positive for Leuk Es. Urine Culture Ordered --Will admit (Jay Jordan) 01/20/17 14:[address] aranda bedside, pt with [facility]. requests dr bateman on consult accepted for admission. (Indra Moore) - Lab Interpretations Lab Results: 01/20/17 09:30 01/20/17 09:30 Lab Results 01/20/17 10:30: Urine Color Yellow, Urine Appearance Turbid, Urine pH 7.0, Ur Specific Markle 1.010, Urine Protein Negative, Urine Glucose (UA) Negative, Urine Ketones Negative, Urine Blood Small H, Urine Nitrate Positive H, Urine Bilirubin Negative, Urine Urobilinogen 0.2, Ur Leukocyte Esterase Large H, Urine RBC 5 - 10, Urine WBC 15 - 20, Ur Epithelial Cells 0 - 2, Amorphous Sediment Few, Urine Bacteria Many, Urine Other Uyeast 01/20/17 09:46: Lactate Dehydrogenase 539, Total Creatine Kinase 77, Troponin I < 0.01, NT-Pro-B Natriuret Pep 76.9 01/20/17 09:30: PT 11.7, INR 1.06, APTT 29.9, D-Dimer, Quantitative 329 H 01/20/17 09:30: Sodium 138, Potassium 4.3, Chloride 102, Carbon Dioxide 30, Anion Gap 10, BUN 17, Creatinine 0.7 L, Est GFR ( Amer) > 60, Est GFR ( Non-Af Amer) > 60, Random Glucose 104, Calcium 9.5, Total Bilirubin 1.1, AST 21 , ALT 25, Alkaline Phosphatase 200 H, Total Protein 7.1, Albumin 4.1, Globulin 3.0, Albumin/Globulin Ratio 1.4 01/20/17 09:30: WBC 5.6 D, RBC 4.05, Hgb 11.9 L, Hct 37.7 L, MCV 93.1, MCH 29.4 , MCHC 31.6, RDW 14.0, Plt Count 156, MPV 11.8 H, Gran % 59.6, Lymph % (Auto) 30.6, Elk % (Auto) 8.9 H, Eos % (Auto) 0.7 L, Baso % (Auto) 0.2, Gran # 3.35, Lymph # 1.7, Elk # 0.5, Eos # 0.0, Baso # 0.01 - RAD Interpretation Radiology Orders: 01/20/17 09:45 CXR [CHEST PORTABLE] [RAD] Stat 01/20/17 10:15 ANGIO CHEST PE PROTOCOL [CT] Stat - Medication Orders Current Medication Orders: Discontinued Medications Albuterol/Ipratropium (Duoneb 3 Mg/0.5 Mg (3 Ml) Ud) 3 ml IH STAT STA Stop: 01/20/17 09:47 Last Admin: 01/20/17 10:10 Dose: 3 ml Ceftriaxone Sodium (Rocephin 2 Gm Ivpb) 2 gm in 100 mls @ 100 mls/hr IVPB STAT STA PRN Reason: Protocol Stop: 01/20/17 12:38 Last Admin: 01/20/17 12:11 Dose: 100 mls/hr eMAR Start Stop Document 01/20/17 12:11 IT (Rec: 01/20/17 12:11 IT [id number]) Intravenous Solution Start Date 01/20/17 Start Time 12:11 End Date 01/20/17 End time 13:11 Total Infusion Time 60 Methylprednisolone (Solu-Medrol) 125 mg IVP STAT STA Stop: 01/20/17 09:47 Last Admin: 01/20/17 10:10 Dose: 125 mg IVP Administration Document 01/20/17 10:10 IT (Rec: 01/20/17 10:10 IT [id number]) Charges for Administration # of IVP Administrations 1 Disposition/Present on Arrival - Present on Arrival Any Indicators Present on Arrival: No History of DVT/PE: No History of Uncontrolled Diabetes: No Urinary Catheter: No History of Decub. Ulcer: No History Surgical Site Infection Following: None - Disposition Have Diagnosis and Disposition been Completed?: Yes Disposition Time: 12:33 Patient Plan: Admission - Disposition Diagnosis: Shortness of breath Disposition: HOSPITALIZED Patient Problems: Current Active Problems Problem Status Onset Shortness of breath Acute Condition: STABLE
[2017-01-20] MEDS ORDERED: Albuterol-Ipratrop 3 mg / 0.5 (3 ml) UD IH STA (09:46)
[2017-01-20 09:49] LABS: BASO # 0.01 K/mm3 (0.0-2.0); BASO % 0.2 % (0.0-3.0); EOS % 0.7 % (1.5-5.0); GRAN # 3.35 (1.4-6.5); GRAN % 59.6 % (50.0-68.0); HEMATOCRIT 37.7 % (42.0-52.0); LYMPH # 1.7 (1.2-3.4); LYMPH % 30.6 % (22.0-35.0); MEAN CELL VOLUME 93.1 fl (80.0-105.0); MEAN CORPUSCULAR HEMOGLOBIN 29.4 pg (25.0-35.0); MEAN CORPUSCULAR HGB CONC 31.6 g/dl (31.0-37.0); MEAN PLATELET VOLUME 11.8 fl (7.0-11.0); MONO # 0.5 (0.1-0.6); MONO % 8.9 % (1.0-6.0); WHITE BLOOD COUNT 5.6 10^3/ul (4.5-11.0)
[2017-01-20 10:05] LABS: ALB/GLOB RATIO 1.4 (1.1-1.8); ALKALINE PHOSPHATASE 200 U/L (38-126); ALT/SGPT 25 U/L (7-56); AST/SGOT 21 U/L (17-59); BILIRUBIN,TOTAL 1.1 mg/dL (0.2-1.3); BLOOD UREA NITROGEN 17 mg/dL (7-21); CALCIUM 9.5 mg/dL (8.4-10.5); CARBON DIOXIDE 30 mmol/L (21-33); CHLORIDE 102 mmol/L (98-107); GFR AFRICAN-AMERICAN > 60; GLUCOSE,RANDOM 104 mg/dL (70-110); POTASSIUM 4.3 mmol/L (3.6-5.0); SODIUM 138 mmol/L (132-148); TOTAL PROTEIN 7.1 g/dL (5.8-8.3)
[2017-01-20 10:10] LABS: INR 1.06 (0.93-1.08); PARTIAL THROMBOPLASTIN TIME 29.9 Seconds (25.1-36.5)
--- NOTE | 2017-01-20 10:39 | RAD ---
HISTORY: SOB COMPARISON: 10/16/2016 FINDINGS: LUNGS: The lungs are hyperinflated and there is peribronchial thickening with chronic changes in both lungs. There is a large bulla in the right upper lobe. No focal consolidation. There is scarring in both lower lobes. PLEURA: No significant pleural effusion identified, no pneumothorax apparent. CARDIOVASCULAR: Normal. OSSEOUS STRUCTURES: No significant abnormalities. VISUALIZED UPPER ABDOMEN: Normal. OTHER FINDINGS: None. IMPRESSION: No active pulmonary disease. COPD. Stable large bulla in the right upper lobe.
[2017-01-20 10:43] LABS: URINE BILIRUBIN NEGATIVE (NEGATIVE); URINE BLOOD SMALL (NEGATIVE); URINE GLUCOSE (UA) NEGATIVE (NEGATIVE); URINE KETONE NEGATIVE (NEGATIVE); URINE LEUKOCYTE ESTERASE LARGE Leu/uL (NEGATIVE); URINE PROTEIN NEGATIVE mg/dL (<30 mg/dL); URINE UROBILINOGEN 0.2 E.U./dL (<1 E.U./dL)
[2017-01-20] MEDS ORDERED: Iohexol 350 MG/100 ML VIAL ONE (10:43)
[2017-01-20 10:53] LABS: TROPONIN I < 0.01 ng/mL
[2017-01-20 11:00] LABS: URINE APPEARANCE TURBID (CLEAR); URINE COLOR YELLOW (YELLOW)
[2017-01-20 11:07] LABS: URINE AMORPHOUS SEDIMENT FEW; URINE BACTERIA MANY (NEG); URINE EPITHELIAL CELLS 0 - 2 /hpf (0-5); URINE WBC 15 - 20 /hpf (0-6)
--- NOTE | 2017-01-20 11:36 | CT ---
PROCEDURE: CT Chest with contrast (Pulmonary Angiogram) HISTORY: sob elevated dimer COMPARISON: Plain radiographs performed the same day TECHNIQUE: Axial computed tomography images were obtained of the chest in the pulmonary arterial phase of enhancement. Coronal and sagittal reformatted images were created and reviewed. Intravenous contrast dose: 100 mL Omnipaque 350 Radiation dose: Total exam DLP = 610.45 mGy-cm. This CT exam was performed using one or more of the following dose reduction techniques: Automated exposure control, adjustment of the mA and/or kV according to patient size, and/or use of iterative reconstruction technique. FINDINGS: PULMONARY ARTERIES: There are no filling defects in the pulmonary arteries to suggest acute pulmonary embolism. AORTA: The aorta is normal in caliber. No thoracic aortic aneurysm. LUNGS: There is bullous emphysema in the upper lobes with large bullae there is diffuse centrilobular emphysema. There is subsegmental atelectasis in the right middle lobe and both lower lobes. No focal consolidation. There are no endobronchial lesions. In left anterior upper lobe and right posterior upper lobe. PLEURAL SPACES: No pleural effusions or pneumothorax. HEART: The heart is normal in size. No pericardial effusion. LYMPH NODES: No pathologic lymphadenopathy. BONES, CHEST WALL: There is diffuse blastic and lytic osseous metastasis no evidence of pathologic fracture OTHER FINDINGS: Unremarkable. IMPRESSION: 1. No CT evidence for acute pulmonary embolism. 2. Bullous emphysema in the upper lobes. 3. Diffuse blastic and lytic osseous metastasis.
[2017-01-20] MEDS ORDERED: cefTRIAXone 2 GM IN NS 2 GM/100 ML BAG IVPB STA (11:39)
[2017-01-20] MEDS ORDERED: Pneumococcal 23-Valent Vaccine IM ONE (15:28)
[2017-01-20] MEDS ORDERED: Influenza Vaccine 60 mcg/0.5 mL SYR (4YR UP) IM ONE (15:28)
[2017-01-20] MEDS ORDERED: Albuterol 0.083% Inhal Sol (2.5 mg/3 mL) UD INH PRN (15:29)
[2017-01-20] MEDS: Albuterol 0.083% Inhal Sol (2.5 mg/3 mL) UD INH PRN ×2 (16:46→21:04)
--- NOTE | 2017-01-20 17:29 | CARD ---
APPROVED REPORT EKG Measurement Heart [id number] <Conclusion> Normal sinus rhythm Left axis deviation Nonspecific T wave abnormality Abnormal ECG
[2017-01-20] MEDS: Fluticasone Nasal 50 mcg/Spray NS SCH (17:50)
[2017-01-20] MEDS: MethylPREDNISolone 40 mg Vial IVP SCH (21:12)
[2017-01-20] MEDS: Latanoprost 2.5 ml Opht Soln OD SCH (21:14)
--- NOTE | 2017-01-21 00:17 | CON ---
DATE: 01/20/2017 PULMONARY CONSULTATION REASON FOR CONSULTATION: Chronic obstructive lung disease, obstructive sleep apnea syndrome. HISTORY OF PRESENT ILLNESS: This is an 81 years old gentleman, known to me from the office and previous admission. He has a history of chronic obstructive lung disease, obstructive sleep apnea syndrome, pulmonary hypertension, hypothyroid, hyperlipidemia, GERD, history of prostate cancer. He has been having shortness of breath. He felt like his CPAP was not helping him. Did take his inhaled bronchodilator with some relief of persistent symptom. Comes to the emergency room where he got IV and inhaled bronchodilator with some benefit of persistent symptoms, was admitted to the hospital, lying in the bed, has a mild cough and shortness of breath. No chest pain. No nausea. No vomiting. Has some bilateral knee discomfort. PAST MEDICAL HISTORY: Chronic obstructive lung disease, obstructive sleep apnea syndrome, pulmonary hypertension, hypothyroid, hyperlipidemia, GERD, history of prostate cancer. ALLERGIES: NONE KNOWN. FAMILY HISTORY: Positive for hypertension. MEDICATIONS: Presently, he is on Zytiga 1000 mg daily, albuterol/Atrovent nebulizer q. 6 hours p.r.n., Symbicort 1 puff twice a day, Colace 100 mg twice a day, Ecotrin 81 mg daily, Flonase 2 sprays each nostril twice a day, Lipitor 20 mg daily, Pepcid 40 mg daily, Rocephin 1 g daily, Solu-Medrol 40 mg q. 12 hours, Synthroid 112 mcg daily. SOCIAL HISTORY: Former smoker. Denies any alcohol use. REVIEW OF SYSTEMS: No headache. He has some rhinitis, cough, shortness of breath. No chest pain. No nausea. No vomiting. No diarrhea. Has a bladder outlet obstruction symptom requiring straight cath. Has a bilateral knee discomfort. No leg swelling. PHYSICAL EXAMINATION: GENERAL: Lying in the bed, mild distress secondary to cough and shortness of breath. VITAL SIGNS: Temp is 98, heart rate is 89, respiratory rate is 20, blood pressure 148/65, pulse ox 100% on room air. HEENT: Moist mucous membrane. Crowded airway. Mallampati score is 4. NECK: Supple. No JVD. LUNGS: Prolonged expiratory phase. There is no wheezing. HEART: S1 and S2. ABDOMEN: Soft, nontender. No organomegaly. EXTREMITIES: No edema. NEUROLOGICAL: Awake and alert. Follows simple command. LABORATORY DATA: Shows hemoglobin 11.9, hematocrit 37.7, WBC 5.6, platelet is 156. INR 1.06, PTT is 30, D-dimer is 329. Sodium 138, potassium 4.3, chloride 102, bicarbonate is 30, BUN 17, creatinine 0.7, glucose 104, calcium 9.5, total bili 1.1. AST 21, ALT 25, alk phos is 200. LDH 539. Troponin less than 0.01. ProBNP 77, albumin is 4.1. Urinalysis shows wbc 15 to 20, rbc 15 to 10, small blood, nitrites are positive. He has a CAT scan of the chest done on admission, which shows no pulmonary embolism. Bullous emphysema in the upper lobe. Diffuse blastic, lytic, osseous metastatic disease. IMPRESSION AND PLAN: Exacerbation of chronic obstructive lung disease, sleep apnea syndrome, pulmonary hypertension, hypertension, also has a component of central sleep apnea, hypothyroid, hyperlipidemia, prostate cancer with metastatic disease. Pulmonary point of view, continue intravenous steroids. He is on antibiotics. We will write a bilevel positive airway pressure 12/6 with 35% oxygen with backup rate of 10. We will get Oncology followup. Inhaled bronchodilators. Thank you and we will follow up with you. Christy Bartlett MD
--- NOTE | 2017-01-21 06:21 | HP ---
CHIEF COMPLAINT: Shortness of breath, coughing. HISTORY OF PRESENT ILLNESS: Mr. Sam Pantoja is an 81-year-old male with past medical history of COPD, obstructive sleep apnea, pulmonary hypertension, hypothyroidism, hypercholesterolemia, GERD, vertigo, prostate cancer and came to the emergency room of [facility] with shortness of breath and coughing. According to him, he used his Breo and ProAir, but nothing was helping him. The patient started this morning. He woke up with shortness of breath. The patient felt like he has not getting enough air from his CPAP machine. He then started feeing dizzy, weak. We prompted him to call ambulance. The patient has been in the ED several times for similar complaints, has multiple admissions. When I saw the patient in the emergency room, he was still having shortness of breath, feeling dizzy, nasal congestion, chest tightness, but no fever, no chills. PAST MEDICAL HISTORY: As above; COPD, obstructive sleep apnea, pulmonary hypertension, hypothyroidism, hypercholesterolemia, GERD, vertigo, prostate cancer, obesity, for prostate cancer he takes Zytiga, ataxia using cane, constipation, doing self-catheterization at times, history of cystoscopy. ALLERGIES: THE PATIENT IS NOT ALLERGIC TO ANY MEDICATIONS. FAMILY HISTORY: Father and mother noncontributory. HABITS: Former smoker. No smoking now. No alcohol. No substance abuse. MEDICATIONS: Levothyroxine, Zytiga, meclizine, Symbicort, prednisone and Proventil. REVIEW OF SYSTEMS: The patient seen and examined on the bedside in ER, still having shortness of breath, coughing and feeling fatigue and tired. No fever. No chills. No chest pain. No abdominal pain. No swelling of the legs. No hematuria or hematochezia. PHYSICAL EXAMINATION: VITAL SIGNS: Temperature 98, pulse 58, respiratory rate 18, blood pressure 151/85 and pulse oximetry 100%. HEENT: Head is normocephalic and atraumatic. Eyes; PERRLA. Extraocular movements intact. Conjunctivae clear. Nose patent. Mucous membranes moist. NECK: Supple. No carotid bruits, JVD, or thyromegaly. CHEST: Bilaterally symmetrical. HEART: S1 and S2 positive. LUNGS: Clear to auscultation. ABDOMEN: Soft. Bowel sounds are present. No organomegaly. EXTREMITIES: No edema. No cyanosis. NEUROLOGIC: The patient is awake and alert. Moving all four extremities. No focal deficits. LABORATORY DATA: White blood cell 5.6, hemoglobin 11.9, hematocrit 37.7 and platelets 156. Sodium 138, potassium 4.3, BUN 17, creatinine 0.7 and glucose 104. ASSESSMENT AND PLAN: Mr. Sam Pantoja is an 81-year-old male with anemia, elevated D-dimer. CT scan was done. Admitted for shortness of breath, exacerbation of chronic obstructive pulmonary disease and asthma, history of chronic obstructive disease, obstructive sleep apnea, pulmonary hypertension, hypothyroidism, hypercholesteremia, gastroesophageal reflux disease, vertigo, history of prostate cancer, getting medications; started home medications, continuous positive airway pressure order by Dr. Bartlett. CAT scan of the chest done showed no CT evidence of acute pulmonary embolism, bullous emphysema in the upper lobes, diffuse blastic and lytic osseous metastases. We called Pulmonary economic consultant Dr. Bartlett. Gastrointestinal and deep venous thrombosis prophylaxis. Repeat labs. We will followup. Megan Sheth MD MTDOlivier
[2017-01-21 06:41] LABS: HEMATOCRIT 36.4 % (42.0-52.0); MEAN CELL VOLUME 92.6 fl (80.0-105.0); MEAN CORPUSCULAR HEMOGLOBIN 29.3 pg (25.0-35.0); MEAN CORPUSCULAR HGB CONC 31.6 g/dl (31.0-37.0); MEAN PLATELET VOLUME 12.5 fl (7.0-11.0); RED CELL DISTRIBUTION WIDTH 13.9 % (11.5-14.5); WHITE BLOOD COUNT 8.4 10^3/ul (4.5-11.0)
[2017-01-21] MEDS ORDERED: Levothyroxine 112 MCG TAB PO ONE (07:00)
[2017-01-21] MEDS: ZYTIGA 500 MG PO SCH (07:21)
[2017-01-21 08:02] LABS: ALB/GLOB RATIO 1.3 (1.1-1.8); ALKALINE PHOSPHATASE 190 U/L (38-126); ALT/SGPT 32 U/L (7-56); AST/SGOT 21 U/L (17-59); BLOOD UREA NITROGEN 16 mg/dL (7-21); CALCIUM 9.6 mg/dL (8.4-10.5); CARBON DIOXIDE 27 mmol/L (21-33); CHLORIDE 104 mmol/L (98-107); GFR AFRICAN-AMERICAN > 60; GLUCOSE,RANDOM 159 mg/dL (70-110); SODIUM 138 mmol/L (132-148); TOTAL PROTEIN 6.9 g/dL (5.8-8.3)
[2017-01-21] MEDS ORDERED: cefTRIAXone 1 gm 1 GM/100 ML BAG IVPB SCH (10:00)
[2017-01-21] MEDS ORDERED: Abiraterone Acetate [Zytiga] 1,000 MG PO SCH (10:00)
[2017-01-21] MEDS: Fluticasone Nasal 50 mcg/Spray NS SCH ×2 (10:09→17:27)
[2017-01-21] MEDS: MethylPREDNISolone 40 mg Vial IVP SCH ×2 (10:10→21:46)
--- NOTE | 2017-01-21 21:08 | PN ---
DATE: SUBJECTIVE: The patient is an 81-year-old male. The patient was seen and examined on the bedside, looking comfortable. Cough is better. Shortness of breath is better. No nausea, vomiting, or diarrhea. No hematuria or hematochezia. No swelling of the legs. No chest pain. No palpitation. No headache. No dizziness. PHYSICAL EXAMINATION: VITAL SIGNS: Temperature 97.4, pulse 56, blood pressure 155/77, and respiratory rate 20. HEENT: Head is normocephalic and atraumatic. Eyes; PERRLA. Extraocular muscles are intact. Conjunctivae clear. Nose patent. Mucous membranes moist. NECK: Supple. No carotid bruits, JVD, or thyromegaly. CHEST: Bilaterally symmetrical. HEART: S1 and S2 positive. LUNGS: Clear to auscultation. ABDOMEN: Soft. Positive bowel sounds. No organomegaly. EXTREMITIES: No edema. No cyanosis. NEUROLOGIC: The patient is awake and alert. Moving all 4 extremities. No focal deficits. MEDICATIONS: Meclizine, albuterol, Symbicort, Colace, Ecotrin, Flonase, Lipitor, Pepcid, Rocephin, Solu-Medrol, Synthroid, and Xalatan ophthalmic solution. LABORATORY DATA: White blood cell 8.4, hemoglobin 11.5, hematocrit 36.4, and platelets 155. Sodium 138, potassium 4.0, BUN 16, creatinine 0.8, glucose 159, and alkaline phosphatase is 190. ASSESSMENT AND PLAN: Mr. Sam Pantoja is an 81-year-old male with anemia, hyperglycemia, hematuria, urinary tract infection, history of prostate cancer, getting treatment, history of chronic obstructive lung disease, obstructive sleep apnea syndrome, pulmonary hypertension, hypothyroidism, hypercholesteremia, gastroesophageal reflux disease, and dyspepsia, came with exacerbation of chronic obstructive lung disease. He is complaining about neck pain today. We will give Tylenol. Gastrointestinal and deep venous thrombosis prophylaxis. We will put Oncology consult. Repeat labs. We will follow up. Megan Sheth MD
[2017-01-21] MEDS: Latanoprost 2.5 ml Opht Soln OD SCH (21:49)
--- NOTE | 2017-01-21 22:30 | PN ---
PULMONARY PROGRESS NOTE DATE: 01/21/2017 REFERRING PHYSICIAN: Megan Sheth MD SUBJECTIVE: The patient is lying in the bed, head at 45 degrees, feels better, decreased stuffy nose, and decreased cough and shortness of breath. No nausea or vomiting. No diarrhea. Trace leg swelling. Tolerated BiPAP well. PHYSICAL EXAMINATION: GENERAL: In no acute distress. VITAL SIGNS: Temperature is 98, heart rate is 82, respiratory rate is 20, blood pressure is 164/77, and pulse oximetry is 98% on room air. HEENT: Moist mucous membrane. Crowded airway. Mallampati score is 4. NECK: Supple. No JVD. LUNGS: Has a fair airflow with few rhonchi. HEART: S1 and S2. ABDOMEN: Soft and nontender. No organomegaly. EXTREMITIES: Does have trace edema. NEUROLOGICAL: Awake and alert. Follows simple commands. MEDICATIONS: He is on albuterol/Atrovent nebulizer q.6 hours p.r.n., Antivert 25 mg twice a day p.r.n., Symbicort 160/4.5 two puffs twice a day, Colace 100 mg twice a day, Ecotrin 81 mg daily, Flonase 2 sprays each nostril twice a day, Lipitor 20 mg daily, Pepcid 40 mg at bedtime, Rocephin 1 g IV daily, Solu-Medrol 40 mg q.12 hours, and Synthroid 112 mcg daily. LABORATORY DATA: Shows hemoglobin 11.5, hematocrit 36.4, WBC 8.4, and platelet is 155. Sodium 138, potassium 4.0, chloride 104, bicarbonate 27, BUN 16, creatinine 0.8, glucose 159, and calcium 9.6. AST 21, ALT 32, alk phos is 190, and albumin is 3.9. IMPRESSION AND PLAN: Exacerbation of chronic obstructive lung disease, sleep apnea syndrome, pulmonary hypertension, hypertension, also have a central sleep apnea syndrome, hypothyroid, hyperlipidemia, and prostate cancer with metastatic disease to the bone. Pulmonary point of view, doing okay. Continue p.o. and inhaled bronchodilator. Keep head at 45 degrees. Encourage bilevel positive airway pressure use. Gastric prophylaxis. SCDs to lower extremity. Thank you and we will follow with you. Christy Bartlett MD
[2017-01-21] MEDS: Albuterol 0.083% Inhal Sol (2.5 mg/3 mL) UD INH PRN (23:12)
[2017-01-22] MEDS: Albuterol 0.083% Inhal Sol (2.5 mg/3 mL) UD INH PRN (06:28)
[2017-01-22] MEDS: Levothyroxine 112 MCG TAB PO SCH (07:03)
[2017-01-22] MEDS: ZYTIGA 500 MG PO SCH (08:11)
[2017-01-22] MEDS: cefTRIAXone 1 gm 1 GM/100 ML BAG IVPB SCH (09:24)
[2017-01-22] MEDS: Enoxaparin 30 mg Syringe SC SCH (09:25)
[2017-01-22] MEDS: Fluticasone Nasal 50 mcg/Spray NS SCH ×2 (09:26→17:25)
[2017-01-22] MEDS: MethylPREDNISolone 40 mg Vial IVP SCH ×2 (09:27→21:15)
[2017-01-22] MEDS: Latanoprost 2.5 ml Opht Soln OD SCH (21:18)
--- NOTE | 2017-01-22 23:26 | PN ---
PULMONARY PROGRESS NOTE DATE: 01/22/2017 REFERRING PHYSICIAN: Dr. Sheth. SUBJECTIVE: The patient is sitting at side of the bed. Feels better. Tolerated BIPAP well. Decreased cough. Decreased shortness of breath. No nausea. No vomiting. No diarrhea. No leg swelling. OBJECTIVE: GENERAL: In no acute distress. VITAL SIGNS: Temperature 98, heart rate is 83, respiratory rate 20, blood pressure 126/71, and pulse oximetry 98% on supplemental oxygen. HEENT: Moist mucous membrane. Crowded airway. Mallampati score is 4. NECK: Supple. No JVD. LUNGS: Fair airflow with few rhonchi. HEART: S1 and S2. ABDOMEN: Soft and nontender. No organomegaly. EXTREMITIES: Not much edema. NEUROLOGIC: Awake and alert. Follows simple commands. MEDICATIONS: He is on albuterol/Atrovent nebulizer q. 6 hours p.r.n., meclizine 25 mg twice a day p.r.n., Symbicort 160/4.5 one to two puffs twice a day, Colace 100 mg twice a day, Ecotrin 81 mg daily, Flonase 1 spray to each nostril twice a day, Lipitor 20 mg daily, Lovenox 30 mg daily, Pepcid 40 mg at bedtime, Rocephin 1 g IV daily, Solu-Medrol 40 mg q. 12 hours, and Synthroid 112 mcg daily. LABORATORY DATA: Reviewed and noted. Urine culture has some gram-positive cocci, 100,000 colonies. IMPRESSION AND PLAN: Chronic obstructive lung disease, sleep apnea syndrome, pulmonary hypertension, hypertension, also have a central sleep apnea syndrome, hypothyroid, hyperlipidemia, prostate cancer with metastasis to the bones, and urinary tract infection. We will continue IV and inhaled bronchodilator. Continue BIPAP while sleeping. Continue Rocephin until ID of the organism is back. Oncology followup. Thank you and we will follow with you. Christy Bartlett MD
[2017-01-23] MEDS: Levothyroxine 112 MCG TAB PO SCH ×2 (04:42→11:49)
[2017-01-23] MEDS: ZYTIGA 500 MG PO SCH (07:31)
[2017-01-23] MEDS: Albuterol 0.083% Inhal Sol (2.5 mg/3 mL) UD INH PRN ×3 (07:49→19:34)
[2017-01-23] MEDS: MethylPREDNISolone 40 mg Vial IVP SCH ×2 (09:11→21:51)
[2017-01-23] MEDS: Enoxaparin 30 mg Syringe SC SCH (09:11)
[2017-01-23] MEDS: Fluticasone Nasal 50 mcg/Spray NS SCH ×2 (09:11→18:01)
[2017-01-23] MEDS: cefTRIAXone 1 gm 1 GM/100 ML BAG IVPB SCH (10:23)
--- NOTE | 2017-01-23 10:35 | PN ---
DATE: 01/22/2017 SUBJECTIVE: The patient is an 81-year-old male. The patient was seen and examined on the side, looking comfortable. No nausea, vomiting, or diarrhea. No hematuria or hematochezia. No swelling of the leg. No chest pain. No palpitation. No headache. No dizziness. PHYSICAL EXAMINATION VITAL SIGNS: Temperature 98.2, pulse 77, blood pressure 120/80 , respiratory rate 20. HEENT: Head is normocephalic and atraumatic. Eyes, PERRLA. Extraocular muscles intact. Conjunctivae are clear. Nose is patent. Mucous membranes moist. NECK: Supple. No carotid bruits. No JVD or thyromegaly. CHEST: Bilaterally symmetrical. HEART: S1 and S2 positive. LUNGS: Clear to auscultation. ABDOMEN: Soft. Bowel sounds present. No organomegaly. EXTREMITIES: No edema. No cyanosis. NEUROLOGIC: The patient is awake and alert. Moving all 4 extremities. No focal deficits. MEDICATIONS: Antivert, Symbicort, Colace, Ecotrin, Flonase, Lipitor, Lovenox, Pepcid, Rocephin, Solu-Medrol, Synthroid, and eyedrops. LABORATORY DATA: We do not have recent labs, but I reviewed old labs. ASSESSMENT AND PLAN: Mr. Sam Pantoja is an 81-year-old male with multiple medical problems, history prostate cancer with new onset metastasis, exacerbation of chronic obstructive pulmonary disease, sleep apnea syndrome, pulmonary hypertension, hypothyroidism, hypercholesterolemia. Continue bronchodilators, aspiration precautions. Gastrointestinal and deep venous thrombosis prophylaxis. Repeat labs. We will followup. Megan Sheth MD YUN
[2017-01-23] MEDS ORDERED: Alum-Mag Hydrox-Simethicone Susp (30 mL) PO ONE (15:59)
[2017-01-23] MEDS ORDERED: POLYETHYLENE GLYCOL 3350 17 GM/Dose PACKET PO ONE (15:59)
--- NOTE | 2017-01-23 17:12 | CARD ---
APPROVED REPORT EKG Measurement Heart [id number] <Conclusion> Normal sinus rhythm Left axis deviation Nonspecific T wave abnormality Abnormal ECG
--- NOTE | 2017-01-23 17:49 | CP.PCM.PN ---
<Alexia Diaz - Last Filed: 01/23/17 22:17> Subjective - Date & Time of Evaluation Date of Evaluation: 01/23/17 Time of Evaluation: 11:30 - Subjective Subjective: 81 yr male w/ history of COPD, JH, pulmonary HTN, obesity, Hypothyroidism, Hyperlipidemia, GERD, vertigo, Prostate CA has been feeling air trapping. He is c/o something is wrong with his cpap, stating,"I feel like i'm not getting enough air." Denies chest pain, diarrhea, or constipation. No distress noted. Objective - Vital Signs/Intake and Output Vital Signs (last 24 hours): Temp Pulse Resp BP Pulse Ox 98.7 F 72 18 133/74 98 01/23/17 15:20 01/23/17 15:20 01/23/17 15:20 01/23/17 15:20 01/23/17 06:00 Intake and Output: 01/23/17 01/23/17 06:59 18:59 Intake Total 360 1020 Output Total 4 Balance 360 1016 - Medications Medications: Current Medications Albuterol Sulfate (Albuterol 0.083% Inhal Geni (2.5 Mg/3 Ml) Ud) 2.5 mg INH [id number] PRN PRN Reason: Shortness of Breath Last Admin: 01/23/17 13:47 Dose: 2.5 mg Aspirin (Ecotrin) 81 mg PO DAILY [facility] Last Admin: 01/23/17 09:11 Dose: 81 mg Atorvastatin Calcium (Lipitor) 20 mg PO HS [facility] Last Admin: 01/22/17 21:15 Dose: 20 mg Docusate Sodium (Colace) 100 mg PO BID [facility] Last Admin: 01/23/17 09:11 Dose: 100 mg Enoxaparin Sodium (Lovenox) 30 mg SC DAILY [facility] PRN Reason: Protocol Last Admin: 01/23/17 09:11 Dose: 30 mg Famotidine (Pepcid) 40 mg PO HS [facility] Last Admin: 01/22/17 21:15 Dose: 40 mg Fluticasone Propionate (Flonase) 2 actuation NS BID [facility] Last Admin: 01/23/17 09:11 Dose: 2 spr Home Med (Home Med) 2 unit PO 0700 [facility] Last Admin: 01/23/17 07:31 Dose: 2 unit Ceftriaxone Sodium (Rocephin 1 Gram Ivpb (D5w)) 1 gm in 100 mls @ 100 mls/hr IVPB DAILY [facility] PRN Reason: Protocol Last Admin: 01/23/17 10:23 Dose: 100 mls/hr Latanoprost (Xalatan Opht) 0 ml OD HS [facility] Last Admin: 01/22/17 21:18 Dose: 2.5 ml Levothyroxine Sodium (Synthroid) 112 mcg PO 0600 [facility] Last Admin: 01/23/17 11:49 Dose: Not Given Meclizine HCl (Antivert) 25 mg PO BID PRN PRN Reason: Dizziness Last Admin: 01/21/17 10:06 Dose: 25 mg Methylprednisolone (Solu-Medrol) 40 mg IVP Q12 [facility] Last Admin: 01/23/17 09:11 Dose: 40 mg Budesonide/Formoterol Fumarate [Symbicort 160-4.5 Mcg Inhaler] 1 inh INH BID [facility] Last Admin: 01/23/17 09:12 Dose: 1 inh - Labs Labs: PT 11.7 SECONDS (9.4-12.5) 01/20/17 09:30 INR 1.06 (0.93-1.08) 01/20/17 09:30 APTT 29.9 Seconds (25.1-36.5) 01/20/17 09:30 - Constitutional Appears: No Acute Distress - Head Exam Head Exam: ATRAUMATIC - Eye Exam Eye Exam: Normal appearance - ENT Exam ENT Exam: Mucous Membranes Moist - Neck Exam Neck Exam: Normal Inspection - Respiratory Exam Respiratory Exam: Decreased Breath Sounds, NORMAL BREATHING PATTERN - Cardiovascular Exam Cardiovascular Exam: +S1, +S2 - GI/Abdominal Exam GI & Abdominal Exam: Soft, Normal Bowel Sounds - Extremities Exam Extremities Exam: Normal Capillary Refill, Normal Inspection - Neurological Exam Neurological Exam: Alert, Awake, Oriented x3 - Psychiatric Exam Psychiatric exam: Normal Affect, Normal Mood - Skin Skin Exam: Dry, Intact, Warm Assessment and Plan (1) Anemia Status: Acute (2) UTI (urinary tract infection) Status: Acute (3) Shortness of breath Status: Acute (4) CA of prostate Status: Acute (5) JH (obstructive sleep apnea) Status: Acute - Assessment and Plan (Free Text) Plan: Stable with current medications. IVABX for UTI. elevated d. dimer w/ negative CT of chest. Anemia w/ Prosate CA, on board. Bipap machine may need resizing to better suit pt, Dr. Bartlett onboard. Consults: Hematology - Dr. Nye = notes pending Cardio - Dr. Marion = notes pending. Pulmonary - Dr. Bartlett = UTI w/ rocephin, IV & inhaled bronchodilators, Bipap while sleeping Reviewed: ECG = NSR, L axis deviation, nonspecif T wave abn CT chest = (+) bullous emphysema in upper lobes, diffuse blastic and lytic osseous metastasis (-) pulmonary embolism CXR = (+) COPD, stable large bulla in RUL (-)active disease <Megan Sheth - Last Filed: 01/23/17 22:54> Objective - Vital Signs/Intake and Output Vital Signs (last 24 hours): Temp Pulse Resp BP Pulse Ox 97.7 F 98 H 20 156/84 H 98 01/23/17 17:49 01/23/17 18:00 01/23/17 17:49 01/23/17 17:49 01/23/17 06:00 Intake and Output: 01/23/17 01/24/17 18:59 06:59 Intake Total 1020 Output Total 4 Balance 1016 - Medications Medications: Current Medications Albuterol Sulfate (Albuterol 0.083% Inhal Geni (2.5 Mg/3 Ml) Ud) 2.5 mg INH [id number] PRN PRN Reason: Shortness of Breath Last Admin: 01/23/17 19:34 Dose: 2.5 mg Aspirin (Ecotrin) 81 mg PO DAILY [facility] Last Admin: 01/23/17 09:11 Dose: 81 mg Atorvastatin Calcium (Lipitor) 20 mg PO HS [facility] Last Admin: 01/23/17 21:51 Dose: 20 mg Docusate Sodium (Colace) 100 mg PO BID [facility] Last Admin: 01/23/17 18:01 Dose: 100 mg Doxycycline Hyclate (Doryx) 100 mg PO Q12 [facility] PRN Reason: Protocol Last Admin: 01/23/17 21:52 Dose: 100 mg Enoxaparin Sodium (Lovenox) 30 mg SC DAILY [facility] PRN Reason: Protocol Last Admin: 01/23/17 09:11 Dose: 30 mg Famotidine (Pepcid) 40 mg PO HS [facility] Last Admin: 01/23/17 21:52 Dose: 40 mg Fluticasone Propionate (Flonase) 2 actuation NS BID [facility] Last Admin: 01/23/17 18:01 Dose: 2 spr Home Med (Home Med) 2 unit PO 0700 [facility] Last Admin: 01/23/17 07:31 Dose: 2 unit Latanoprost (Xalatan Opht) 0 ml OD HS [facility] Last Admin: 01/23/17 21:52 Dose: 2.5 ml Levothyroxine Sodium (Synthroid) 112 mcg PO 0600 [facility] Last Admin: 01/23/17 11:49 Dose: Not Given Meclizine HCl (Antivert) 25 mg PO BID PRN PRN Reason: Dizziness Last Admin: 01/21/17 10:06 Dose: 25 mg Methylprednisolone (Solu-Medrol) 20 mg IVP Q12 [facility] Last Admin: 01/23/17 21:51 Dose: 20 mg Budesonide/Formoterol Fumarate [Symbicort 160-4.5 Mcg Inhaler] 1 inh INH BID [facility] Last Admin: 01/23/17 18:01 Dose: 1 inh - Labs Labs: PT 11.7 SECONDS (9.4-12.5) 01/20/17 09:30 INR 1.06 (0.93-1.08) 01/20/17 09:30 APTT 29.9 Seconds (25.1-36.5) 01/20/17 09:30 Assessment and Plan - Assessment and Plan (Free Text) Plan: pt is S/e at bed side , looking comfortable , no n,v,d , no chest pain no bradshaw, no dizziness , had copd , chf , prostate ca with new mets . jh . plan is to cont. same treatment bipap while sleeping
--- NOTE | 2017-01-23 20:15 | PN ---
PULMONARY PROGRESS NOTE DATE: 01/23/2017 REFERRING PHYSICIAN: Dr. Sheth. SUBJECTIVE: The patient is sitting at the side of the bed, having dinner. Night was unremarkable. Complaining of too much pressure overnight with the BiPAP. No nausea. No vomiting. No diarrhea. No leg pain or leg swelling. OBJECTIVE: GENERAL: In no acute distress. VITAL SIGNS: Temperature 98, heart rate is 72, respiratory rate is 20, blood pressure is 133/74, and pulse oximetry 96% on nasal cannula. HEENT: Moist mucous membrane. Crowded airway. Mallampati score is 4. NECK: Supple. No JVD. LUNGS: Diffuse scattered rhonchi. HEART: S1 and S2. ABDOMEN: Soft, nontender. No organomegaly. EXTREMITIES: There is no edema. NEUROLOGIC: Awake and alert. Follows simple commands. MEDICATIONS: He is on albuterol/Atrovent nebulizer q. 6 hours p.r.n., Antivert 25 mg twice a day p.r.n. also on Symbicort 2 puffs twice a day, Colace 100 mg twice a day, Ecotrin 81 mg daily, Flonase two sprays to each nostrils daily, Lipitor 20 mg daily, Lovenox 20 mg subcutaneous daily, Pepcid 40 mg daily, Rocephin 1 g daily, Solu-Medrol 40 mg q. 12 hours, and Synthroid 112 mcg daily. LABORATORY DATA: Reviewed and shows no new lab is available since yesterday. Urine cultures has a Staphylococcus epidermidis. IMPRESSION AND PLAN: Chronic obstructive disease, sleep apnea syndrome, pulmonary hypertension, hypertension, obstructive sleep apnea syndrome, hypothyroid, hyperlipidemia, history of prostate cancer with metastasis to the bones, and urinary tract infection with Staphylococcus. We will discontinue Rocephin and start doxycycline 100 mg twice a day. Decrease Solu-Medrol to 20 q. 12 hours. Decrease BiPAP pressure to 10/6 with supplemental oxygen. Thank you and we will follow with you. Christy Bartlett MD
--- NOTE | 2017-01-23 21:38 | CON ---
DATE: 01/23/2017 LOCATION: The patient is in room 271, bed 1. 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 HISTORY OF PRESENT ILLNESS: This is an 81-year-old white male who is seen by me for the first time. He has a history of chronic obstructive lung disease, obstructive sleep apnea syndrome, hypertension, hypothyroidism, hyperlipidemia, GERD, and history of stage IV prostatic carcinoma, on Zytiga, prednisone, and on the medication list uncleared to me whether the patient is on bisphosphonate or has been getting LHRH agonist at this point in time in the recent past. The patient has been having shortness of breath, he felt like CPAP that he was using at home was not helping him. He did take his inhaled bronchodilators with some relief with persistent symptoms, prompted him to come to the ER where he got IV and inhaled bronchodilators with some benefit in these symptoms and he was then admitted to the hospital for further management. The patient is also having mild cough or shortness of breath. Denies any chest pain, nausea, vomiting, or bilateral knee discomfort. PAST MEDICAL HISTORY: Significant for the fact that he has chronic obstructive lung disease, obstructive sleep apnea syndrome, pulmonary hypertension, hypothyroidism, hyperlipidemia, GERD, and stage IV prostatic carcinoma. ALLERGIES: THE PATIENT HAS NO KNOWN ALLERGIES. FAMILY HISTORY: Significant for hypertension in the family. MEDICATIONS: The patient's medications were reviewed. He is currently on Zytiga 1000 mg daily, he is on albuterol and Atrovent nebulizer q.6 h. p.r.n., Symbicort 1 puff twice a day, Colace 100 mg twice a day, Ecotrin 81 mg daily, Flonase 2 sprays to each nostril twice a day, Lipitor 20 mg daily, Pepcid 40 mg daily, he is on IV Rocephin 1 g daily, he is on Solu-Medrol 40 mg IV q.12 hours, and he is also on Synthroid 112 mcg daily. SOCIAL HISTORY: The patient is a former smoker. Does not abuse alcohol. REVIEW OF SYSTEMS: A 12 system review was negative except for what is mentioned in the HPI. He denies any headaches. He has some rhinitis, cough, and shortness of breath. No chest pain. No nausea. No vomiting. No diarrhea. The patient has bladder outlet obstruction for which he requires straight cath. 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 PHYSICAL EXAMINATION: GENERAL: The patient is lying in bed, has mild respiratory distress secondary to cough and shortness of breath. VITAL SIGNS: Stable. T-max is 98.4, heart rate is 89, respirations are 20, blood pressure is 148/65, and pulse ox is 100% on room air. HEENT: Head is normocephalic and atraumatic. Conjunctivae pale. Sclerae anicteric. Pupils are equally reactive to light and accommodation. Examination of the oropharynx reveals tongue to be moist. No oropharyngeal lesions are noted. No ulcerations of the tongue are noted. There is no evidence of any fungal infection. NECK: Supple. There is no adenopathy. No jugular venous distention noted. LUNGS: Reveals prolonged expiratory phase. There is no wheezing. Breath sounds appear to be distant. HEART: Reveals PMI to be in the fifth intercostal space inside the midclavicular line. S1 and S2 are normal. No gallops or murmurs heard. ABDOMEN: Soft and nontender. Bowel sounds are present. Liver and spleen not palpable. There is no evidence of any other masses. There is no rebound, rigidity, or guarding. EXTREMITIES: Reveal no cyanosis, clubbing, or edema. NEUROLOGIC: Reveals higher functions to be normal. No focal deficits are noted. GENITOURINARY AND RECTAL: Deferred. There is no other areas of adenopathy in the examination of the neck, axilla or groin. LABORATORY DATA: Reveals a hemoglobin of 11.9, hematocrit of 37, white count of 5.6 with a platelet count of 156,000. INR is normal. D-dimer is 329. Sodium is 138, K is 4.3, chloride is 102, bicarbonate is 30, BUN is 17, creatinine is 0.7, glucose is 104, calcium is 9.5, total bilirubin is 1.1, AST is 21, ALT is 25, alkaline phosphatase is 200, which is elevated, and LDH is 539. Troponin is less than 0.01. ProBNP is 77 with an albumin of 4.1. Urinalysis shows WBC is 15 to 20, RBC is 15 to 20, small blood, and nitrites are positive. CAT scan of the chest on admission shows no pulmonary embolism, bullous emphysema in the upper lobe, and also reveals diffuse blastic and lytic osseous metastatic cancer throughout the visualized portion of the skeleton on the CAT scan of the chest. ASSESSMENT NOTES AND PLAN: The patient has stage IV metastatic prostate cancer with lytic and blastic bone metastasis, anemia related to the underlying disease and the prostate cancer itself. Currently, on Zytiga, we try to correlate information and make appropriate recommendations from the doctors who have taken care of him prior to my seeing the patient. The patient may benefit from getting a bisphosphonate in view of the extensive bone metastasis, we can correct for the kidney function based on his age and give him Aredia as opposed to Zometa as Aredia would be less nephrotoxic. We will also see the patient could be reassess for degree of response to Zytiga upon which we can make further recommendations whether the patient needs to have the Zytiga switched if he has been on it for a long time. The patient has been managed exactly from the pulmonary point of view. Discussed with Dr. Bartlett and check with him what the parameters are as far as quality of life and how far we should go for this patient. Routine post-exam instructions have been given to the patient and I will speak to the immediate family of the patient, they are in the loop and check with Dr. Sheth if there is a value for giving the patient bisphosphonate. Time spent with the patient more than 45 minutes. Halima Nye MD
[2017-01-23] MEDS: Latanoprost 2.5 ml Opht Soln OD SCH (21:52)
[2017-01-24 06:05] VITALS: O2SAT 100
[2017-01-24] MEDS: Levothyroxine 112 MCG TAB PO SCH (06:14)
[2017-01-24] MEDS: ZYTIGA 500 MG PO SCH (07:55)
[2017-01-24] MEDS: MethylPREDNISolone 40 mg Vial IVP SCH ×2 (09:22→21:41)
[2017-01-24] MEDS: Enoxaparin 30 mg Syringe SC SCH (09:22)
[2017-01-24] MEDS: Fluticasone Nasal 50 mcg/Spray NS SCH ×2 (09:23→18:45)
--- NOTE | 2017-01-24 12:09 | CP.PCM.PN ---
Subjective - Date & Time of Evaluation Date of Evaluation: 01/24/17 Time of Evaluation: 07:55 - Subjective Subjective: Heme/Once progress note for Dr Nye's service. Patient states he is feeling better in term of respiratory wolfe. Denies cp, sob , n/v/d. Patient complaining of how and when he gets his medications in the morning. Otherwise patient states he's eating well, and slept well last night with the bipap. Patient denies difficulty urinating. Patient states he was diagnosed with prostate cancer 16 years ago, he was told at the [facility] he has met to the bone, was told the bone met is at 3 different spots. Patient states he went thru three different chemo, now he is currently on zytiga and prednsione. Patient gets his prescriptions at the [facility]. Try to reach patient's oncologist at the [facility] at [phone] ext [phone] /2022, left a message for patient's [facility] nurse Leticia to call back. Objective - Vital Signs/Intake and Output Vital Signs (last 24 hours): Temp Pulse Resp BP Pulse Ox 98.7 F 60 16 145/80 100 01/24/17 11:35 01/24/17 11:35 01/24/17 11:35 01/24/17 11:35 01/24/17 06:00 - Medications Medications: Current Medications Albuterol Sulfate (Albuterol 0.083% Inhal Geni (2.5 Mg/3 Ml) Ud) 2.5 mg INH [id number] PRN PRN Reason: Shortness of Breath Last Admin: 01/23/17 19:34 Dose: 2.5 mg Aspirin (Ecotrin) 81 mg PO DAILY [facility] Last Admin: 01/24/17 09:22 Dose: 81 mg Atorvastatin Calcium (Lipitor) 20 mg PO HS [facility] Last Admin: 01/23/17 21:51 Dose: 20 mg Docusate Sodium (Colace) 100 mg PO BID [facility] Last Admin: 01/24/17 09:22 Dose: 100 mg Doxycycline Hyclate (Doryx) 100 mg PO Q12 [facility] PRN Reason: Protocol Last Admin: 01/24/17 09:22 Dose: 100 mg Enoxaparin Sodium (Lovenox) 30 mg SC DAILY [facility] PRN Reason: Protocol Last Admin: 01/24/17 09:22 Dose: 30 mg Famotidine (Pepcid) 40 mg PO HS [facility] Last Admin: 01/23/17 21:52 Dose: 40 mg Fluticasone Propionate (Flonase) 2 actuation NS BID [facility] Last Admin: 01/24/17 09:23 Dose: 2 spr Home Med (Home Med) 2 unit PO 0700 [facility] Last Admin: 01/24/17 07:55 Dose: 2 unit Latanoprost (Xalatan Opht) 0 ml OD HS [facility] Last Admin: 01/23/17 21:52 Dose: 2.5 ml Levothyroxine Sodium (Synthroid) 112 mcg PO 0600 [facility] Last Admin: 01/24/17 06:14 Dose: 112 mcg Meclizine HCl (Antivert) 25 mg PO BID PRN PRN Reason: Dizziness Last Admin: 01/21/17 10:06 Dose: 25 mg Methylprednisolone (Solu-Medrol) 20 mg IVP Q12 [facility] Last Admin: 01/24/17 09:22 Dose: 20 mg Budesonide/Formoterol Fumarate [Symbicort 160-4.5 Mcg Inhaler] 1 inh INH BID [facility] Last Admin: 01/24/17 09:23 Dose: 1 inh - Labs Labs: PT 11.7 SECONDS (9.4-12.5) 01/20/17 09:30 INR 1.06 (0.93-1.08) 01/20/17 09:30 APTT 29.9 Seconds (25.1-36.5) 01/20/17 09:30 - Constitutional Appears: No Acute Distress - Head Exam Head Exam: ATRAUMATIC, NORMAL INSPECTION, NORMOCEPHALIC - Eye Exam Eye Exam: EOMI, Normal appearance. absent: Scleral icterus - ENT Exam ENT Exam: Mucous Membranes Moist - Neck Exam Neck Exam: Normal Inspection - Respiratory Exam Respiratory Exam: Clear to Ausculation Bilateral, NORMAL BREATHING PATTERN. absent: Rales, Rhonchi, Wheezes, Respiratory Distress, Stridor - Cardiovascular Exam Cardiovascular Exam: REGULAR RHYTHM, +S1, +S2 - GI/Abdominal Exam GI & Abdominal Exam: Soft, Normal Bowel Sounds. absent: Distended, Firm, Guarding, Rigid, Tenderness Additional comments: Obese abdomen. - Extremities Exam Extremities Exam: Normal Inspection - Back Exam Back Exam: NORMAL INSPECTION - Neurological Exam Neurological Exam: Alert, Awake, Oriented x3 - Psychiatric Exam Psychiatric exam: Normal Affect, Normal Mood - Skin Skin Exam: Dry, Intact, Warm Assessment and Plan - Assessment and Plan (Free Text) Assessment: Patient is an 81 y/o with PMH of COPD, beverley, HTN, hypothyroidism, hld, GERD, and stage 4 prostate cancer metastatic to the bone, currently on zytiga [facility] with [facility] exacerbation and Dr Nye is consulted for the prostate cancer. Plan: Continue with Zytiga. Patient is on solumedrol for copd exacerbation. Left [facility] nurse a message, trying to obtain record as to whether patient was getting bisphosponate and or [facility] as to patient is a candidate and will benefit from aredia and leupron. Discussed with Dr Nye.
[2017-01-24 20:53] VITALS: RESP 20; TEMP 97.5
--- NOTE | 2017-01-24 22:09 | PN ---
DATE: SUBJECTIVE: The patient is an 81-year-old male. The patient was seen and examined at the bedside and looking comfortable. No nausea, vomiting, or diarrhea. No hematuria or hematochezia. No swelling of the legs. No chest pain. No palpitations. No headache or dizziness. PHYSICAL EXAMINATION: VITAL SIGNS: Temperature 98.7, pulse 50, blood pressure 145/85, and respiratory rate 15. HEENT: Head; normocephalic and atraumatic. Eyes; PERRLA. Extraocular muscles are intact. Conjunctivae clear. Nose patent. Mucous membranes moist. NECK: Supple. No carotid bruit, JVD, or thyromegaly. CHEST: Bilaterally symmetrical. HEART: S1 and S2 positive. LUNGS: Clear to auscultation. ABDOMEN: Soft. Bowel sounds present. No organomegaly. EXTREMITIES: No edema. No cyanosis. NEUROLOGIC: The patient is awake and alert. Moving all four extremities. No focal deficits. LABORATORY DATA: White blood cell is 8.4, hemoglobin is 11.5, hematocrit is 36.4, and platelets are 155. Sodium 134, potassium 4.0, BUN 16, creatinine 1.8, glucose 159, and alkaline phosphatase is 190. MEDICATIONS: Albuterol, Antivert, Colace, doxycycline, aspirin, Flonase, Lipitor, Lovenox, Pepcid, Solu-Medrol, Synthroid, and eyedrops. ASSESSMENT AND PLAN: Mr. Sam Pantoja is an 81-year-old male with anemia, hyperglycemia, history of prostate cancer with metastasis, and chronic obstructive pulmonary disease. According to the patient, he has a diagnosis of prostate cancer 15 years ago. The patient has metastasis as per patient. He went through three chemotherapies, now he is currently on Zytiga and prednisone. The patient is getting treatment from his [facility], [facility]. The patient has history of hypertension, also sleep apnea syndrome, hypothyroidism, and gastroesophageal reflux disease. According to Oncology, continue Zytiga and tapering dose of Solu-Medrol. Dr. Nye's staff called [facility] and they are trying to get his medical record rather the patient getting bisphosphonate or [facility] as the patient is a candidate and it will benefit from Aredia and Lupron. We will wait for further medical record. Continue bronchodilators. The patient has a history of urinary tract infection with Staphylococcus, was taking Rocephin and Dr. Bartlett discontinued Rocephin and started doxycycline twice a day. Supplemental oxygen. GI and DVT prophylaxis, repeat labs, and we will follow up. Megan Sheth MD YUN
[2017-01-24] MEDS: Latanoprost 2.5 ml Opht Soln OD SCH (22:26)
[2017-01-24] MEDS: Albuterol 0.083% Inhal Sol (2.5 mg/3 mL) UD INH PRN (22:50)
--- NOTE | 2017-01-25 03:08 | PN ---
DATE: 01/24/2017 PULMONARY PROGRESS NOTE REFERRING PHYSICIAN: Dr. Sheth. SUBJECTIVE: The patient is lying in the bed, head at 45 degrees. Night was unremarkable. Tolerated BiPAP pressure well. Cough is better. No nausea. No vomiting. No diarrhea. No significant leg swelling. PHYSICAL EXAMINATION GENERAL: In no acute distress. VITAL SIGNS: Temperature 98, heart rate is 67, respiratory rate 20, blood pressure 164/87, and pulse oximetry 100% on 2 L nasal cannula. HEENT: Moist mucous membrane. Crowded airway. Mallampati score is 4. NECK: Supple. No JVD. LUNGS: Fair airflow with few rhonchi. HEART: S1 and S2. ABDOMEN: Soft and nontender. No organomegaly. EXTREMITIES: There is not much edema. NEUROLOGIC: Awake and alert. Follows simple commands. CURRENT MEDICATIONS: He is on albuterol/Atrovent nebulizer q. 6 hours p.r.n., meclizine 25 mg twice a day p.r.n., Symbicort one puff twice a day, Colace 100 mg twice a day, doxycycline 100 mg twice a day, Ecotrin 81 mg daily, Flonase 2 sprays to each nostril twice a day, insulin coverage, Lipitor 20 mg daily, Lovenox 30 mg subcu daily, Pepcid 40 mg daily, Solu-Medrol 20 mg q. 12 hours, Synthroid 112 mcg daily. LABORATORY DATA: Urine culture has Staphylococcus epidermidis. IMPRESSION AND PLAN: Chronic obstructive lung disease, sleep apnea syndrome, pulmonary hypertension, hypertension, obstructive sleep apnea syndrome, hypothyroid, hyperlipidemia, history of prostate cancer with metastasis to the bone. Pulmonary point of view, he is doing okay. Keep head at 45 degrees. Continue antibiotics. Encourage BiPAP use, gastric prophylaxis, fall precaution. Seen by Dr. Nye today. Thank you and we will follow with you. Christy Bartlett MD
[2017-01-25] MEDS: Levothyroxine 112 MCG TAB PO SCH (05:16)
[2017-01-25] MEDS: ZYTIGA 500 MG PO SCH (06:19)
[2017-01-25 07:36] VITALS: BP 164/92; PULSE 62
[2017-01-25] MEDS ORDERED: MethylPREDNISolone 40 mg Vial IVP SCH ×2 (08:53→10:00)
--- NOTE | 2017-01-25 09:09 | CP.PCM.PN ---
Subjective - Date & Time of Evaluation Date of Evaluation: 01/25/17 Time of Evaluation: 07:45 - Subjective Subjective: Heme/Onc progress note for Dr Nye service. Patient in no acute distress. No overnight acute events. Patient states he slept well. Patient states the sob has improved. Denies cp, sob, n$v and diarrhea. Objective - Vital Signs/Intake and Output Vital Signs (last 24 hours): Temp Pulse Resp BP Pulse Ox 97.5 F L 62 20 164/92 H 100 01/25/17 06:00 01/25/17 06:00 01/25/17 06:00 01/25/17 06:00 01/25/17 06:00 Intake and Output: 01/25/17 01/25/17 06:59 18:59 Intake Total 780 240 Output Total 800 Balance -20 240 - Medications Medications: Current Medications Albuterol Sulfate (Albuterol 0.083% Inhal Geni (2.5 Mg/3 Ml) Ud) 2.5 mg INH [id number] PRN PRN Reason: Shortness of Breath Last Admin: 01/24/17 22:50 Dose: 2.5 mg Aspirin (Ecotrin) 81 mg PO DAILY [facility] Last Admin: 01/24/17 09:22 Dose: 81 mg Atorvastatin Calcium (Lipitor) 20 mg PO HS [facility] Last Admin: 01/24/17 21:42 Dose: 20 mg Docusate Sodium (Colace) 100 mg PO BID [facility] Last Admin: 01/24/17 18:31 Dose: 100 mg Doxycycline Hyclate (Doryx) 100 mg PO Q12 KRYS PRN Reason: Protocol Last Admin: 01/24/17 21:42 Dose: 100 mg Enoxaparin Sodium (Lovenox) 30 mg SC DAILY [facility] PRN Reason: Protocol Last Admin: 01/24/17 09:22 Dose: 30 mg Famotidine (Pepcid) 40 mg PO HS [facility] Last Admin: 01/24/17 21:44 Dose: 40 mg Fluticasone Propionate (Flonase) 2 actuation NS BID [facility] Last Admin: 01/24/17 18:45 Dose: 1 spr Home Med (Home Med) 2 unit PO 0700 [facility] Last Admin: 01/25/17 06:19 Dose: 2 unit Latanoprost (Xalatan Opht) 0 ml OD HS [facility] Last Admin: 01/24/17 22:26 Dose: 2.5 ml Levothyroxine Sodium (Synthroid) 112 mcg PO 0600 [facility] Last Admin: 01/25/17 05:16 Dose: 112 mcg Meclizine HCl (Antivert) 25 mg PO BID PRN PRN Reason: Dizziness Last Admin: 01/21/17 10:06 Dose: 25 mg Methylprednisolone (Solu-Medrol) 10 mg IVP DAILY [facility] Budesonide/Formoterol Fumarate [Symbicort 160-4.5 Mcg Inhaler] 1 inh INH BID [facility] Last Admin: 01/24/17 09:23 Dose: 1 inh - Labs Labs: PT 11.7 SECONDS (9.4-12.5) 01/20/17 09:30 INR 1.06 (0.93-1.08) 01/20/17 09:30 APTT 29.9 Seconds (25.1-36.5) 01/20/17 09:30 - Constitutional Appears: No Acute Distress - Head Exam Head Exam: ATRAUMATIC, NORMAL INSPECTION, NORMOCEPHALIC - Eye Exam Eye Exam: Normal appearance Pupil Exam: NORMAL ACCOMODATION - ENT Exam ENT Exam: Mucous Membranes Moist - Neck Exam Neck Exam: Normal Inspection - Respiratory Exam Respiratory Exam: Clear to Ausculation Bilateral, NORMAL BREATHING PATTERN. absent: Rales, Rhonchi, Wheezes, Respiratory Distress, Stridor - Cardiovascular Exam Cardiovascular Exam: REGULAR RHYTHM, +S1, +S2. absent: Murmur - GI/Abdominal Exam GI & Abdominal Exam: Soft, Normal Bowel Sounds. 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 Spoke to patient's oncology nurse at [facility] at [phone] ext [phone], on at 9:15 am regarding the status of patient's prostate cancer management. [place] states patient gets Zytiga and prednisone po daily, he also is on Leupron every 6 months, last time he got it was in November, and he is due to it in May. Patient has not gotten bisphophonate because patient still need to get dental clearance. In November PSA was 1.36, in December it was 8.39, with testosterone below 50; patient is due for restaging, and need to follow up with them upon discharge. Gave patient options to either follow up with Dr Nye as outpatient or return to [facility] upon discharge. Patient states he would prefer to follow up with [facility] as outpatient. Plan: - Patient to continue with rui, currently on solumedrol tapering does. - Upon discharge patient will need to continue with po prednisone 5 mg bid daily as per of the regiment of his prostate cancer. - Patient to follow up with [facility] upon discharge to continue with his cancer management. - Continue with current medical management as per primary. Patient seen, examined and case discussed with Dr Nye.
[2017-01-25] MEDS: Enoxaparin 30 mg Syringe SC SCH (10:06)
[2017-01-25] MEDS: Fluticasone Nasal 50 mcg/Spray NS SCH (10:41)
--- NOTE | 2017-01-25 14:41 | CP.PCM.PN ---
Subjective - Date & Time of Evaluation Date of Evaluation: 01/25/17 Time of Evaluation: 11:00 Objective - Vital Signs/Intake and Output Vital Signs (last 24 hours): Temp Pulse Resp BP Pulse Ox 97.5 F L 62 20 164/92 H 100 01/25/17 06:00 01/25/17 06:00 01/25/17 06:00 01/25/17 06:00 01/25/17 06:00 Intake and Output: 01/25/17 01/25/17 06:59 18:59 Intake Total 780 240 Output Total 800 Balance -20 240 - Medications Medications: Current Medications Albuterol Sulfate (Albuterol 0.083% Inhal Geni (2.5 Mg/3 Ml) Ud) 2.5 mg INH [id number] PRN PRN Reason: Shortness of Breath Last Admin: 01/24/17 22:50 Dose: 2.5 mg Aspirin (Ecotrin) 81 mg PO DAILY [facility] Last Admin: 01/25/17 09:55 Dose: 81 mg Atorvastatin Calcium (Lipitor) 20 mg PO HS [facility] Last Admin: 01/24/17 21:42 Dose: 20 mg Docusate Sodium (Colace) 100 mg PO BID [facility] Last Admin: 01/25/17 09:54 Dose: 100 mg Doxycycline Hyclate (Doryx) 100 mg PO Q12 KRYS PRN Reason: Protocol Last Admin: 01/25/17 09:55 Dose: 100 mg Enoxaparin Sodium (Lovenox) 30 mg SC DAILY [facility] PRN Reason: Protocol Last Admin: 01/25/17 10:06 Dose: 30 mg Famotidine (Pepcid) 40 mg PO HS [facility] Last Admin: 01/24/17 21:44 Dose: 40 mg Fluticasone Propionate (Flonase) 2 actuation NS BID [facility] Last Admin: 01/24/17 18:45 Dose: 1 spr Home Med (Home Med) 2 unit PO 0700 [facility] Last Admin: 01/25/17 06:19 Dose: 2 unit Latanoprost (Xalatan Opht) 0 ml OD HS [facility] Last Admin: 01/24/17 22:26 Dose: 2.5 ml Levothyroxine Sodium (Synthroid) 112 mcg PO 0600 [facility] Last Admin: 01/25/17 05:16 Dose: 112 mcg Meclizine HCl (Antivert) 25 mg PO BID PRN PRN Reason: Dizziness Last Admin: 01/21/17 10:06 Dose: 25 mg Methylprednisolone (Solu-Medrol) 10 mg IVP DAILY [facility] Last Admin: 01/25/17 09:55 Dose: 10 mg Budesonide/Formoterol Fumarate [Symbicort 160-4.5 Mcg Inhaler] 1 inh INH BID [facility] Last Admin: 01/25/17 10:07 Dose: 1 inh - Labs Labs: PT 11.7 SECONDS (9.4-12.5) 01/20/17 09:30 INR 1.06 (0.93-1.08) 01/20/17 09:30 APTT 29.9 Seconds (25.1-36.5) 01/20/17 09:30 Assessment and Plan (1) Anemia Status: Acute (2) UTI (urinary tract infection) Status: Acute (3) Shortness of breath Status: Acute (4) CA of prostate Status: Acute (5) JH (obstructive sleep apnea) Status: Acute
--- NOTE | 2017-01-25 15:25 | NM ---
PROCEDURE: Whole Body Bone Scan HISTORY: Metastatic prostate cancer. COMPARISON: 01/20/[address] thorax TECHNIQUE: Following administration of 22.0 miCu of Tc MDP multiplanar whole body images were obtained. FINDINGS: Evidence for bony metastatic disease: Sternum, multiple ribs, right hemipelvis, the iliac bone and left hemipelvis. The findings are better appreciated on the CT of the thorax. Degenerative uptake: None. Physiologic uptake: Dilated left collecting system and left ureter likely due to obstructive uropathy/presumed mass density. Other findings: None. IMPRESSION: Osseous metastatic disease sternum, multiple ribs, pelvis. The bone scan underestimates the degree of blastic metastatic disease visualized osseous structures of the thorax and upper lumbar spine region
[2017-01-25 20:20] LABS: TOTAL PSA 7.9 ng/mL (<=4.0)
--- NOTE | 2017-01-25 22:12 | CP.PCM.DIS ---
<Alexia Diaz - Last Filed: 01/25/17 22:09> Provider - Provider Date of Admission: 01/22/17 00:29 Attending physician: Megan Sheth MD Consults: Hematology - Dr. Nye Cardio - Dr. Novaf Pulmonary - Dr. Bartlett Time Spent in preparation of Discharge (in minutes): 30 Diagnosis - Discharge Diagnosis (1) Anemia Status: Acute (2) UTI (urinary tract infection) Status: Acute (3) Shortness of breath Status: Acute (4) CA of prostate Status: Acute (5) JH (obstructive sleep apnea) Status: Acute Hospital Course - Lab Results Lab Results: Most Recent Lab Values WBC 8.4 10^3/ul (4.5-11.0) D 01/21/17 05:30 RBC 3.93 10^6/uL (3.5-6.1) 01/21/17 05:30 Hgb 11.5 g/dL (14.0-18.0) L 01/21/17 05:30 Hct 36.4 % (42.0-52.0) L 01/21/17 05:30 MCV 92.6 fl (80.0-105.0) 01/21/17 05:30 MCH 29.3 pg (25.0-35.0) 01/21/17 05:30 MCHC 31.6 g/dl (31.0-37.0) 01/21/17 05:30 RDW 13.9 % (11.5-14.5) 01/21/17 05:30 Plt Count 155 10^3/uL (120.0-450.0) 01/21/17 05:30 MPV 12.5 fl (7.0-11.0) H 01/21/17 05:30 Gran % 59.6 % (50.0-68.0) 01/20/17 09:30 Lymph % (Auto) 30.6 % (22.0-35.0) 01/20/17 09:30 [place] % (Auto) 8.9 % (1.0-6.0) H 01/20/17 09:30 Eos % (Auto) 0.7 % (1.5-5.0) L 01/20/17 09:30 Baso % (Auto) 0.2 % (0.0-3.0) 01/20/17 09:30 Gran # 3.35 (1.4-6.5) 01/20/17 09:30 Lymph # 1.7 (1.2-3.4) 01/20/17 09:30 [place] # 0.5 (0.1-0.6) 01/20/17 09:30 Eos # 0.0 (0.0-0.7) 01/20/17 09:30 Baso # 0.01 K/mm3 (0.0-2.0) 01/20/17 09:30 PT 11.7 SECONDS (9.4-12.5) 01/20/17 09:30 INR 1.06 (0.93-1.08) 01/20/17 09:30 APTT 29.9 Seconds (25.1-36.5) 01/20/17 09:30 D-Dimer, Quantitative 329 ng/mL (0-243) H 01/20/17 09:30 Sodium 138 mmol/L (132-148) 01/21/17 05:30 Potassium 4.0 mmol/L (3.6-5.0) 01/21/17 05:30 Chloride 104 mmol/L (98-107) 01/21/17 05:30 Carbon Dioxide 27 mmol/L (21-33) 01/21/17 05:30 Anion Gap 11 (10-20) 01/21/17 05:30 BUN 16 mg/dL (7-21) 01/21/17 05:30 Creatinine 0.8 mg/dl (0.8-1.5) 01/21/17 05:30 Est GFR ( Amer) > 60 01/21/17 05:30 Est GFR (Non-Af Amer) > 60 01/21/17 05:30 Random Glucose 159 mg/dL (70-110) H 01/21/17 05:30 Calcium 9.6 mg/dL (8.4-10.5) 01/21/17 05:30 Total Bilirubin 1.0 mg/dL (0.2-1.3) 01/21/17 05:30 AST 21 U/L (17-59) 01/21/17 05:30 ALT 32 U/L (7-56) 01/21/17 05:30 Alkaline Phosphatase 190 U/L (38-126) H 01/21/17 05:30 Lactate Dehydrogenase 539 U/L (333-699) 01/20/17 09:46 Total Creatine Kinase 77 U/L (35-230) 01/20/17 09:46 Troponin I < 0.01 ng/mL 01/20/17 09:46 NT-Pro-B Natriuret Pep 76.9 pg/mL (0-450) 01/20/17 09:46 Total Protein 6.9 g/dL (5.8-8.3) 01/21/17 05:30 Albumin 3.9 g/dL (3.0-4.8) 01/21/17 05:30 Globulin 3.0 gm/dL 01/21/17 05:30 Albumin/Globulin Ratio 1.3 (1.1-1.8) 01/21/17 05:30 Free PSA 1.1 ng/mL 01/24/17 05:30 % Free PSA 14 Percent (>25) L 01/24/17 05:30 Total PSA 7.9 ng/mL (<=4.0) H 01/24/17 05:30 Prostate Cancer Risk 28 Percent 01/24/17 05:30 Urine Color Yellow (YELLOW) 01/20/17 10:30 Urine Appearance Turbid (CLEAR) 01/20/17 10:30 Urine pH 7.0 (4.7-8.0) 01/20/17 10:30 Ur Specific [place] 1.010 (1.005-1.035) 01/20/17 10:30 Urine Protein Negative mg/dL (<30 mg/dL) 01/20/17 10:30 Urine Glucose (UA) Negative mg/dL (NEGATIVE) 01/20/17 10:30 Urine Ketones Negative mg/dL (NEGATIVE) 01/20/17 10:30 Urine Blood Small (NEGATIVE) H 01/20/17 10:30 Urine Nitrate Positive (NEGATIVE) H 01/20/17 10:30 Urine Bilirubin Negative (NEGATIVE) 01/20/17 10:30 Urine Urobilinogen 0.2 E.U./dL (<1 E.U./dL) 01/20/17 10:30 Ur Leukocyte Esterase Large Robyn/uL (NEGATIVE) H 01/20/17 10:30 Urine RBC 5 - 10 /hpf (0-2) 01/20/17 10:30 Urine WBC 15 - 20 /hpf (0-6) 01/20/17 10:30 Ur Epithelial Cells 0 - 2 /hpf (0-5) 01/20/17 10:30 Amorphous Sediment Few 01/20/17 10:30 Urine Bacteria Many (NEG) 01/20/17 10:30 Urine Other Uyeast 01/20/17 10:30 - Hospital Course Hospital Course: 81 yr male w/ history of COPD, JH, pulmonary HTN, obesity, Hypothyroidism, Hyperlipidemia, GERD, vertigo, Prostate CA has been feeling air trapping. 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 - Date & Time of H&P Date of H&P: 01/25/17 Time of H&P: 11:00 Discharge Exam - Head Exam Head Exam: ATRAUMATIC, NORMAL INSPECTION, NORMOCEPHALIC - Eye Exam Eye Exam: EOMI, Normal appearance, PERRL Pupil Exam: NORMAL ACCOMODATION, PERRL - ENT Exam ENT Exam: Mucous Membranes Moist - Neck Exam Neck exam: Normal Inspection - Respiratory Exam Respiratory Exam: NORMAL BREATHING PATTERN, UNREMARKABLE - Cardiovascular Exam Cardiovascular Exam: +S1, +S2 - GI/Abdominal Exam GI & Abdominal Exam: Normal Bowel Sounds - Neurological Exam Neurological exam: Alert, CN II-XII Intact, Normal Gait, Oriented x3, Reflexes Normal - Psychiatric Exam Psychiatric exam: Normal Affect, Normal Mood - Skin Skin Exam: Dry, Intact, Normal Color, Warm Discharge Plan - Follow Up Plan Condition: STABLE Disposition: HOME/ ROUTINE Instructions: COPD (Chronic Obstructive Pulmonary Disease) (DC), Anemia (DC) <Megan Sheth - Last Filed: 01/25/17 22:57> Provider - Provider Date of Admission: 01/22/17 00:29 Attending physician: Megan Sheth MD Hospital Course - Lab Results Lab Results: Most Recent Lab Values WBC 8.4 10^3/ul (4.5-11.0) D 01/21/17 05:30 RBC 3.93 10^6/uL (3.5-6.1) 01/21/17 05:30 Hgb 11.5 g/dL (14.0-18.0) L 01/21/17 05:30 Hct 36.4 % (42.0-52.0) L 01/21/17 05:30 MCV 92.6 fl (80.0-105.0) 01/21/17 05:30 MCH 29.3 pg (25.0-35.0) 01/21/17 05:30 MCHC 31.6 g/dl (31.0-37.0) 01/21/17 05:30 RDW 13.9 % (11.5-14.5) 01/21/17 05:30 Plt Count 155 10^3/uL (120.0-450.0) 01/21/17 05:30 MPV 12.5 fl (7.0-11.0) H 01/21/17 05:30 Gran % 59.6 % (50.0-68.0) 01/20/17 09:30 Lymph % (Auto) 30.6 % (22.0-35.0) 01/20/17 09:30 [place] % (Auto) 8.9 % (1.0-6.0) H 01/20/17 09:30 Eos % (Auto) 0.7 % (1.5-5.0) L 01/20/17 09:30 Baso % (Auto) 0.2 % (0.0-3.0) 01/20/17 09:30 Gran # 3.35 (1.4-6.5) 01/20/17 09:30 Lymph # 1.7 (1.2-3.4) 01/20/17 09:30 [place] # 0.5 (0.1-0.6) 01/20/17 09:30 Eos # 0.0 (0.0-0.7) 01/20/17 09:30 Baso # 0.01 K/mm3 (0.0-2.0) 01/20/17 09:30 PT 11.7 SECONDS (9.4-12.5) 01/20/17 09:30 INR 1.06 (0.93-1.08) 01/20/17 09:30 APTT 29.9 Seconds (25.1-36.5) 01/20/17 09:30 D-Dimer, Quantitative 329 ng/mL (0-243) H 01/20/17 09:30 Sodium 138 mmol/L (132-148) 01/21/17 05:30 Potassium 4.0 mmol/L (3.6-5.0) 01/21/17 05:30 Chloride 104 mmol/L (98-107) 01/21/17 05:30 Carbon Dioxide 27 mmol/L (21-33) 01/21/17 05:30 Anion Gap 11 (10-20) 01/21/17 05:30 BUN 16 mg/dL (7-21) 01/21/17 05:30 Creatinine 0.8 mg/dl (0.8-1.5) 01/21/17 05:30 Est GFR ( Amer) > 60 01/21/17 05:30 Est GFR (Non-Af Amer) > 60 01/21/17 05:30 Random Glucose 159 mg/dL (70-110) H 01/21/17 05:30 Calcium 9.6 mg/dL (8.4-10.5) 01/21/17 05:30 Total Bilirubin 1.0 mg/dL (0.2-1.3) 01/21/17 05:30 AST 21 U/L (17-59) 01/21/17 05:30 ALT 32 U/L (7-56) 01/21/17 05:30 Alkaline Phosphatase 190 U/L (38-126) H 01/21/17 05:30 Lactate Dehydrogenase 539 U/L (333-699) 01/20/17 09:46 Total Creatine Kinase 77 U/L (35-230) 01/20/17 09:46 Troponin I < 0.01 ng/mL 01/20/17 09:46 NT-Pro-B Natriuret Pep 76.9 pg/mL (0-450) 01/20/17 09:46 Total Protein 6.9 g/dL (5.8-8.3) 01/21/17 05:30 Albumin 3.9 g/dL (3.0-4.8) 01/21/17 05:30 Globulin 3.0 gm/dL 01/21/17 05:30 Albumin/Globulin Ratio 1.3 (1.1-1.8) 01/21/17 05:30 Free PSA 1.1 ng/mL 01/24/17 05:30 % Free PSA 14 Percent (>25) L 01/24/17 05:30 Total PSA 7.9 ng/mL (<=4.0) H 01/24/17 05:30 Prostate Cancer Risk 28 Percent 01/24/17 05:30 Urine Color Yellow (YELLOW) 01/20/17 10:30 Urine Appearance Turbid (CLEAR) 01/20/17 10:30 Urine pH 7.0 (4.7-8.0) 01/20/17 10:30 Ur Specific [place] 1.010 (1.005-1.035) 01/20/17 10:30 Urine Protein Negative mg/dL (<30 mg/dL) 01/20/17 10:30 Urine Glucose (UA) Negative mg/dL (NEGATIVE) 01/20/17 10:30 Urine Ketones Negative mg/dL (NEGATIVE) 01/20/17 10:30 Urine Blood Small (NEGATIVE) H 01/20/17 10:30 Urine Nitrate Positive (NEGATIVE) H 01/20/17 10:30 Urine Bilirubin Negative (NEGATIVE) 01/20/17 10:30 Urine Urobilinogen 0.2 E.U./dL (<1 E.U./dL) 01/20/17 10:30 Ur Leukocyte Esterase Large Robyn/uL (NEGATIVE) H 01/20/17 10:30 Urine RBC 5 - 10 /hpf (0-2) 01/20/17 10:30 Urine WBC 15 - 20 /hpf (0-6) 01/20/17 10:30 Ur Epithelial Cells 0 - 2 /hpf (0-5) 01/20/17 10:30 Amorphous Sediment Few 01/20/17 10:30 Urine Bacteria Many (NEG) 01/20/17 10:30 Urine Other Uyeast 01/20/17 10:30 - Hospital Course Hospital Course: agreedal above . got anb. will f/u oncologist for new onset mets , looking comfortable .
--- NOTE | 2017-01-26 03:25 | PN ---
PULMONARY PROGRESS NOTE DATE: 01/25/2017 REFERRING PHYSICIAN: Megan Sheth MD SUBJECTIVE: He is lying in the bed comfortable. Feels better. Tolerated BiPAP well. No nausea. No vomiting. No diarrhea. No leg pain or leg swelling. PHYSICAL EXAMINATION: GENERAL: In no acute distress. VITAL SIGNS: Temperature is 98, heart rate is 62, respiratory rate is 18, blood pressure is 162/92, and pulse oximetry is 100% on nasal cannula. HEENT: Moist mucous membrane. No ulcer or thrush noted. NECK: Supple. No JVD. LUNGS: Has a fair airflow with rhonchi. HEART: S1 and S2. ABDOMEN: Soft and nontender. No organomegaly. EXTREMITIES: No edema. NEUROLOGIC: Awake and alert. Follows simple commands. MEDICATIONS: Reviewed. No new changes in medication reported since yesterday. LABORATORY DATA: Reviewed. No new lab is available since yesterday. His total PSA is 7.9. Had a bone scan done today,which shows osseous metastatic disease to sternum, multiple ribs, and pelvis. The bone scan under estimated degree of blastic metastatic disease, visualized osseous structure of thorax and upper lumbar spine region. IMPRESSION AND PLAN: Chronic obstructive lung disease, sleep apnea syndrome, pulmonary hypertension, hypertension, obstructive sleep apnea syndrome, hypothyroid, hyperlipidemia, and prostate cancer with bony metastatic disease. The patient is being followed by Oncology. Coordination will done between [facility] and with Dr. Nye's office. Pulmonary point of view, he is doing well and could be discharged on with tapered dose of steroids. We will continue continuous positive airway pressure while sleeping at home. Thank you and we will follow with you. Christy Bartlett MD
== END 2017-01-25 18:20 | disposition home or self-care (01) | DRG 191 ==
LOC: ED 09:01 → ERH 11:46 → 2RSO 15:12 → OBSVTOIN 01-22 00:29 → 3RSO 01-24 15:50
PROVIDERS: ADMIT Internal Medicine; ATTEND Internal Medicine
DX: J44.1 Chronic obstructive pulmonary disease with (acute) exacerbation (principal); C79.51 Secondary malignant neoplasm of bone; I27.20 Pulmonary hypertension, unspecified; N39.0 Urinary tract infection, site not specified; D64.9 Anemia, unspecified; G47.33 Obstructive sleep apnea (adult) (pediatric); Z85.46 Personal history of malignant neoplasm of prostate; E03.9 Hypothyroidism, unspecified; E78.00 Pure hypercholesterolemia, unspecified; E78.5 Hyperlipidemia, unspecified; G47.31 Primary central sleep apnea; I10 Essential (primary) hypertension; K21.9 Gastro-esophageal reflux disease without esophagitis; K59.00 Constipation, unspecified; R79.1 Abnormal coagulation profile; Z79.51 Long term (current) use of inhaled steroids; Z79.899 Other long term (current) drug therapy; Z82.49 Family history of ischemic heart disease and other diseases of the circulatory system; Z87.440 Personal history of urinary (tract) infections; Z87.891 Personal history of nicotine dependence; R40.2412 Glasgow coma scale score 13-15, at arrival to emergency department; Z68.33 Body mass index [BMI] 33.0-33.9, adult; E66.9 Obesity, unspecified

== ENCOUNTER 2017-03-06 20:47 | Emergency (ER) | payer MEDICARE ==
[2017-03-06 20:48] VITALS: BMI 31.8
[2017-03-06 21:08] VITALS: TEMP 97.4
--- NOTE | 2017-03-06 23:42 | RAD ---
EXAM: XR Left Shoulder Complete, 2 or More Views CLINICAL HISTORY: 81 years old, male; Injury or trauma; Fall; Initial encounter; Blunt trauma (contusions or hematomas; Shoulder; Left; Injury date: 03-06-17; Additional info: R/O FX TECHNIQUE: Two or more views of the left shoulder. COMPARISON: No relevant prior studies available. FINDINGS: Bones/joints: Nondisplaced fracture proximal humerus at level of surgical neck. Possible involvement of greater tuberosity. No dislocation. Soft tissues: Unremarkable. IMPRESSION: 1. Proximal humeral fracture.
--- NOTE | 2017-03-06 23:42 | RAD ---
EXAM: XR Left Humerus, 2 or More Views CLINICAL HISTORY: 81 years old, male; Injury or trauma; Fall; Initial encounter; Blunt trauma (contusions or hematomas; Arm, upper; Left; Injury date: 03-06-17; Additional info: R/O FX TECHNIQUE: Frontal and lateral views of the left humerus. COMPARISON: No relevant prior studies available. FINDINGS: Bones/joints: Nondisplaced fracture proximal humerus. No dislocation. Soft tissues: Unremarkable. IMPRESSION: 1. Proximal humeral fracture.
--- NOTE | 2017-03-06 23:43 | RAD ---
EXAM: XR Left Forearm, 2 Views CLINICAL HISTORY: 81 years old, male; Injury or trauma; Fall; Initial encounter; Blunt trauma (contusions or hematomas; Arm, lower; Left; Injury date: 03-06-17; Additional info: R/O FX TECHNIQUE: Frontal and lateral views of the left forearm. COMPARISON: No relevant prior studies available. FINDINGS: Bones/joints: No acute fracture. No dislocation. Soft tissues: Unremarkable. IMPRESSION: 1. No fracture.
--- NOTE | 2017-03-06 23:45 | RAD ---
EXAM: XR Left Elbow Complete, 3 or More Views CLINICAL HISTORY: 81 years old, male; Injury or trauma; Fall; Initial encounter; Blunt trauma (contusions or hematomas; Elbow; Left; Injury date: 03-06-17; Additional info: R/O FX TECHNIQUE: Frontal, lateral and oblique views of the left elbow. COMPARISON: No relevant prior studies available. FINDINGS: Limitations: Suboptimal positioning. Bones/joints: No acute fracture. No dislocation. No significant joint effusion. Soft tissues: Unremarkable. IMPRESSION: 1. No fracture.
[2017-03-07 00:36] VITALS: BP 128/77; PULSE 64; RESP 18; O2SAT 99
--- NOTE | 2017-03-07 01:53 | ED PDOC ---
Arrival/HPI - General Chief Complaint: Trauma Time Seen by Provider: 03/06/17 21:40 Historian: Patient - History of Present Illness Narrative History of Present Illness (Text): 03/07/17 21:42 A 81 year old male, whose past medical history includes COPD, JH, pulmonary hypertension, hypothyroidism, hyperlipidemia, GERD, vertigo, and prostate cancer , presents to the emergency department complaining of upper left arm pain s/p mechanical fall. Patient reports tripping over an object and bumped into the bumper of a parked car. Patient denies any head trauma, numbness, or any other complaints. PMD: Dr. Sheth Past Medical History - Provider Review Nursing Documentation Reviewed: Yes - Infectious Disease Hx of Infectious Diseases: None - Cardiac Hx Cardiac Disorders: Yes Hx Hypertension: (denies) - Pulmonary Hx Chronic Obstructive Pulmonary Disease (COPD): Yes - Neurological Hx Neurological Disorder: Yes Hx Dizziness: Yes (VERTIGO) - HEENT Hx HEENT Disorder: Yes (eyeglasses) Hx Cataracts: Yes (b/l sx) Hx Glaucoma: Yes (b/l takes eye drops) - Renal Hx Renal Disorder: No - Endocrine/Metabolic Hx Diabetes Mellitus Type 2: (denies) Hx Hypothyroidism: Yes - Hematological/Oncological Hx Blood Disorders: Yes Hx Anemia: Yes Hx Cancer: Yes (PROSTATE-takes Zytiga) Other/Comment: pt first dx 2000 with prostate ca tx with hormone injections, then in 2003 dx again had 9 weeks of radiation 5 days a week and homone injections zoladex both times was maintained on zoladex for 12 yrs, then dx 2016 now takes zytiga hormone based chemo in pill form daily - Integumentary Hx Dermatological Disorder: Yes Other/Comment: ble dry skin - Musculoskeletal/Rheumatological Hx Falls: Yes (09/2016) - Gastrointestinal Hx Gastrointestinal Disorders: Yes (CONSTIPATION) - Genitourinary/Gynecological Hx Genitourinary Disorders: Yes (self-catheterization at times) Hx Prostate Problems: Yes (PROSTATE CA) Other/Comment: cystoscopy, after radiation treatments in 2003 pt had 2wf x 3 months and sometimes has to self catherize himself - Psychiatric Hx Psychophysiologic Disorder: No Hx Substance Use: No - Anesthesia Hx Anesthesia Reactions: No Hx Malignant Hyperthermia: No Family/Social History - Physician Review Nursing Documentation Reviewed: Yes Family/Social History: No Known Family HX Smoking Status: Former Smoker Hx Alcohol Use: No Hx Substance Use: No Allergies/Home Meds Allergies/Adverse Reactions: Allergies No Known Allergies Allergy (Verified 03/06/17 21:13) Home Medications: Home Meds Medication Instructions Recorded Confirmed Albuterol 0.083% [Albuterol 0.083% 1 inhaler INH PRN PRN 07/18/16 03/06/17 Inhal Geni (2.5 mg/3 ml) UD] Levothyroxine [Synthroid] 0.125 mcg PO DAILY 07/18/16 03/06/17 Abiraterone Acetate [Zytiga] 1,000 mg PO DAILY 08/03/16 03/06/17 Budesonide/Formoterol Fumarate 1 inh INH BID 10/11/16 03/06/17 [Symbicort 160-4.5 Mcg Inhaler] Prednisone 5 mg PO BID 10/11/16 03/06/17 Albuterol Sulfate [Proventil Hfa] 6.7 gm IH PRN PRN 10/12/16 03/06/17 Simvastatin 40 mg PO HS 10/12/16 01/20/17 Fluticasone Nasal [Flonase] 2 spr NS BID 01/20/17 03/06/17 Latanoprost [Xalatan] 1 drop BOTHEYES HS 01/20/17 01/20/17 Review of Systems - Physician Review All systems were reviewed & negative as marked: Yes - Review of Systems Constitutional: absent: Other (no head trauma) Musculoskeletal: Other (upper left arm pain s/p mechanical fall) Neurological: absent: Other (no numbness) Physical Exam Vital Signs Reviewed: Yes Vital Signs Temp Pulse Resp BP Pulse Ox 03/07/17 00:35 64 18 128/77 99 03/06/17 23:41 69 19 144/88 96 03/06/17 21:07 97.4 F L 69 16 154/92 H 95 Temperature: Afebrile Blood Pressure: Normal Pulse: Regular Respiratory Rate: Normal Appearance: Positive for: Well-Appearing Pain Distress: None Mental Status: Positive for: Alert and Oriented X 3 - Systems Exam Head: Present: Atraumatic, Normocephalic Pupils: Present: PERRL Extroacular Muscles: Present: EOMI Conjunctiva: Present: Normal Respiratory/Chest: Present: Clear to Auscultation, Good Air Exchange. No: Respiratory Distress, Accessory Muscle Use Cardiovascular: Present: Regular Rate and Rhythm, Normal S1, S2. 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 No: Normal ROM ( decreased ROM of elbow and shoulder) Medical Decision Making ED Course and Treatment: 03/07/17 21:45 Impression: 81 year old male with upper left arm pain s/p mechanical fall. Physical exam shows tenderness to proximal and mid-shaft of humerus (left side) ; decreased ROM to elbow and shoulder (L-side). Plan: -- Left Elbow X-Ray -- Left Forearm X-Ray -- Left humerus X-Ray -- Left Shoulder X-Ray -- Motrin Tab -- Reassess and disposition Prior Visits: Notes and results from previous visits were reviewed. Patient was last seen in the emergency department on 01/20/2017 for shortness of breath. Patient was admitted. Progress Notes: 03/06/2017 23:41 Left Shoulder X-Ray FINDINGS: Bones/joints: Nondisplaced fracture proximal humerus at level of surgical neck. Possible involvement of greater tuberosity. No dislocation. Soft tissues: Unremarkable. IMPRESSION: 1. Proximal humeral fracture. Dictator: Adis Mariscal MD 03/06/2017 23:42 Left Humerus X-Ray FINDINGS: Bones/joints: Nondisplaced fracture proximal humerus. No dislocation. Soft tissues: Unremarkable. IMPRESSION: 1. Proximal humeral fracture. Dictator: Adis Mariscal MD 03/06/2017 23:43 Left Forearm X-Ray FINDINGS: Bones/joints: No acute fracture. No dislocation. Soft tissues: Unremarkable. IMPRESSION: 1. No fracture. Dictator: Adis Mariscal MD 03/06/2017 23:45 Left Elbow X-Ray FINDINGS: Limitations: Suboptimal positioning. Bones/joints: No acute fracture. No dislocation. No significant joint effusion. Soft tissues: Unremarkable. IMPRESSION: 1. No fracture. Dictator: Adis Mariscal MD - RAD Interpretation Radiology Orders: 03/06/17 21:45 ELBOW LEFT 3 VIEWS ROUTINE [RAD] Stat FOREARM LEFT [RAD] Stat HUMERUS LEFT [RAD] Stat SHOULDER LEFT [RAD] Stat - Medication Orders Current Medication Orders: Discontinued Medications Ibuprofen (Motrin Tab) 600 mg PO STAT STA Stop: 03/06/17 21:47 Last Admin: 03/06/17 22:29 Dose: 600 mg MAR Pain/Vitals Document 03/06/17 22:29 RD (Rec: 03/06/17 22:29 RD [id number]) Pain Reassessment Is This A Pain ReAssessment? No Sleep Is patient sleeping during reassessment? No Presence of Pain Presence of Pain Yes - Scribe Statement The provider has reviewed the documentation as recorded by the Latisha Trivedi Provider Scribe Attestation: All medical record entries made by the Scribe were at my direction and personally dictated by me. I have reviewed the chart and agree that the record accurately reflects my personal performance of the history, physical exam, medical decision making, and the department course for this patient. I have also personally directed, reviewed, and agree with the discharge instructions and disposition. Disposition/Present on Arrival - Present on Arrival Any Indicators Present on Arrival: No History of DVT/PE: No History of Uncontrolled Diabetes: No Urinary Catheter: No History of Decub. Ulcer: No History Surgical Site Infection Following: None - Disposition Have Diagnosis and Disposition been Completed?: Yes Diagnosis: Proximal humeral fracture Disposition: HOME/ ROUTINE Disposition Time: 23:50 Condition: GOOD Discharge Instructions (ExitCare): Arm Fracture in Adults (ED) Additional Instructions: Thank you for letting us take care of you today. The emergency medical care you received today was directed at your acute symptoms. If you were prescribed any medication, please fill it and take as directed. It may take several days for your symptoms to resolve. Return to the Emergency Department if your symptoms worsen, do not improve, or if you have any other problems. Please contact your doctor or call one of the physicians/clinics you have been referred to that are listed on the Patient Visit Information form that is included in your discharge packet. Bring any paperwork you were given at discharge with you along with any medications you are taking to your follow up visit. Our treatment cannot replace ongoing medical care by a primary care provider (PCP) outside of the emergency department. Thank you for allowing the [facility] team to be part of your care today. DO NOT REMOVE THE SLING UNTIL YOU ARE EVALUATED BY THE ORTHOPEDIC SURGEON. Follow up with Dr. Mcdaniel and your doctor in 2-3 days for re-evaluation and further management. Prescriptions: Ibuprofen [Motrin] 600 mg PO Q6 PRN #20 tab PRN Reason: Pain, Moderate (4-7) Referrals: Megan Sheth MD [Primary Care Provider] - Follow up with primary Valerie Mcdaniel MD [Staff Provider] - Follow up with primary Forms: [employer] (Tanzanian)
== END 2017-03-07 00:30 | disposition home or self-care (01) ==
LOC: ED 20:47
DX: S42.215A Unspecified nondisplaced fracture of surgical neck of left humerus, initial encounter for closed fracture (principal); W01.198A Fall on same level from slipping, tripping and stumbling with subsequent striking against other object, initial encounter; Y93.01 Activity, walking, marching and hiking; Y92.89 Other specified places as the place of occurrence of the external cause

== ENCOUNTER 2017-03-13 18:20 | Emergency (ER) | payer MEDICARE, OTHER ==
[2017-03-13 18:20] VITALS: BMI 31.8
--- NOTE | 2017-03-13 19:21 | ED PDOC ---
Arrival/HPI - General Chief Complaint: Upper Extremity Problem/Injury Time Seen by Provider: 03/13/17 19:06 Historian: Patient - History of Present Illness Narrative History of Present Illness (Text): 03/13/17 19:06 Sam Pantoja is an 81 year old male, whose past medical history includes anxiety, COPD, sleep apnea, prostate cancer, and hypothyroidism, who presents to the emergency department complaining of nerve tingling to his hands, upper arm, and neck for a few hours. Patient describes his symptoms as "someone pulling off my fingers one by one." Patient states that he has had similar symptoms for a few months but worsened tonight. Patient has no other complaints at this time. Time/Duration: 1-3 hours Symptom Onset: Gradual Symptom Course: Unchanged Activities at Onset: Light Context: Home Past Medical History - Provider Review Nursing Documentation Reviewed: Yes - Infectious Disease Hx of Infectious Diseases: None - Cardiac Hx Cardiac Disorders: Yes Hx Hypertension: (denies) - Pulmonary Hx Respiratory Disorders: Yes Hx Chronic Obstructive Pulmonary Disease (COPD): Yes - Neurological Hx Neurological Disorder: Yes Hx Dizziness: Yes (VERTIGO) - HEENT Hx HEENT Disorder: Yes (eyeglasses) Hx Cataracts: Yes (b/l sx) Hx Glaucoma: Yes (b/l takes eye drops) - Renal Hx Renal Disorder: No - Endocrine/Metabolic Hx Diabetes Mellitus Type 2: (denies) Hx Hypothyroidism: Yes - Hematological/Oncological Hx Blood Disorders: Yes Hx Anemia: Yes Hx Cancer: Yes (PROSTATE-takes Zytiga) Other/Comment: pt first dx 2000 with prostate ca tx with hormone injections, then in 2003 dx again had 9 weeks of radiation 5 days a week and homone injections zoladex both times was maintained on zoladex for 12 yrs, then dx 2016 now takes zytiga hormone based chemo in pill form daily (FROM PAST TRIAGE) - Integumentary Hx Dermatological Disorder: Yes Other/Comment: ble dry skin - Musculoskeletal/Rheumatological Hx Musculoskeletal Disorders: Yes Hx Falls: Yes (09/2016) Hx Fractures: Yes (Feb 2017, humerus fx) - Gastrointestinal Hx Gastrointestinal Disorders: Yes (CONSTIPATION) - Genitourinary/Gynecological Hx Genitourinary Disorders: Yes (self-catheterization at times) Hx Prostate Problems: Yes (PROSTATE CA) Other/Comment: cystoscopy, after radiation treatments in 2003 pt had 2wf x 3 months and sometimes has to self catherize himself - Psychiatric Hx Psychophysiologic Disorder: No Hx Substance Use: No - Anesthesia Hx Anesthesia: Yes Hx Anesthesia Reactions: No Hx Malignant Hyperthermia: No Family/Social History - Physician Review Nursing Documentation Reviewed: Yes Family/Social History: No Known Family HX Smoking Status: Former Smoker Hx Alcohol Use: No Hx Substance Use: No Allergies/Home Meds Allergies/Adverse Reactions: Allergies No Known Allergies Allergy (Unverified 03/13/17 18:30) Home Medications: Home Meds Medication Instructions Recorded Confirmed Albuterol 0.083% [Albuterol 0.083% 1 inhaler INH PRN PRN 07/18/16 03/13/17 Inhal Geni (2.5 mg/3 ml) UD] Levothyroxine [Synthroid] 0.125 mcg PO DAILY 07/18/16 03/13/17 Abiraterone Acetate [Zytiga] 1,000 mg PO DAILY 08/03/16 03/13/17 Budesonide/Formoterol Fumarate 1 inh INH BID 10/11/16 03/13/17 [Symbicort 160-4.5 Mcg Inhaler] Prednisone 5 mg PO BID 10/11/16 03/13/17 Albuterol Sulfate [Proventil Hfa] 6.7 gm IH PRN PRN 10/12/16 03/13/17 Simvastatin 40 mg PO HS 10/12/16 03/13/17 Fluticasone Nasal [Flonase] 2 spr NS BID 01/20/17 03/13/17 Latanoprost [Xalatan] 1 drop BOTHEYES HS 01/20/17 03/13/17 Review of Systems - Physician Review All systems were reviewed & negative as marked: Yes - Review of Systems Constitutional: absent: Fevers, Night Sweats Eyes: absent: Vision Changes ENT: absent: Hearing Changes Respiratory: absent: SOB Cardiovascular: absent: Chest Pain Gastrointestinal: absent: Abdominal Pain Genitourinary Male: absent: Dysuria, Frequency Musculoskeletal: absent: Arthralgias Skin: absent: Rash, Pruritis Neurological: Other (Nerve tingling to hands, upper arms, and neck) Endocrine: absent: Diaphoresis Hemo/Lymphatic: absent: Adenopathy Psychiatric: absent: Anxiety Physical Exam Vital Signs Reviewed: Yes Vital Signs Temp Pulse Resp BP Pulse Ox 03/13/17 22:20 98.2 F 73 16 148/80 100 03/13/17 20:20 98.2 F 76 16 150/70 99 03/13/17 18:35 98.0 F 88 18 154/79 H 98 Temperature: Afebrile Blood Pressure: Hypertensive Pulse: Regular Respiratory Rate: Normal Appearance: Positive for: Other (Anxious) Pain Distress: None Mental Status: Positive for: Alert and Oriented X 3 - Systems Exam Head: Present: Atraumatic, Normocephalic Pupils: Present: PERRL Extroacular Muscles: Present: EOMI Conjunctiva: Present: Normal Mouth: Present: Moist Mucous Membranes Neck: Present: Normal Range of Motion Respiratory/Chest: Present: Clear to Auscultation, Good Air Exchange. No: Respiratory Distress, Accessory Muscle Use Cardiovascular: Present: Regular Rate and Rhythm, Normal S1, S2. No: Murmurs Abdomen: Present: Normal Bowel Sounds. No: Tenderness, Distention, Peritoneal Signs Back: Present: Normal Inspection Upper Extremity: Present: Normal Inspection. No: Cyanosis, Edema Lower Extremity: Present: Normal Inspection. No: Edema Neurological: Present: GCS=15, CN II-XII Intact, Speech Normal Skin: Present: Warm, Dry, Normal Color. No: Rashes Psychiatric: Present: Alert, Oriented x 3, Normal Insight, Normal Concentration Medical Decision Making ED Course and Treatment: 03/13/17 19:24 Impression: 81 year old male, whose past medical history includes anxiety, COPD, sleep apnea , prostate cancer, and hypothyroidism, who presents to the emergency department complaining of nerve tingling to his hands, upper arm, and neck for a few hours. Plan: -- Chest X-ray -- Cervical spine CT w/ contrast -- Head CT w/o contrast -- Lyrica and Ativan PO -- Reassess and disposition Prior Visits: Notes and results from previous visits were reviewed. Patient was last seen in the emergency department on 02/25/17 for upper left arm pain s/p mechanical fall. Patient was discharged home. Progress Notes: EKG: Ordered, reviewed, and independently interpreted the EKG. Rate : 73 BPM Rhythm : NSR Interpretation : Old septal infarct. Normal Intervals. - Lab Interpretations Lab Results: 03/13/17 20:01 03/13/17 20:01 Lab Results 03/13/17 20:01: TSH 3rd Generation 1.65 03/13/17 20:01: Sodium 141, Potassium 4.2, Chloride 107, Carbon Dioxide 26, Anion Gap 13, BUN 19, Creatinine 0.8, Est GFR ( Amer) > 60, Est GFR (Non- Af Amer) > 60, Random Glucose 109, Calcium 9.7, Total Bilirubin 0.8, AST 32, ALT 16, Alkaline Phosphatase 191 H, Lactate Dehydrogenase 690, Total Creatine Kinase 132, Troponin I < 0.01, Total Protein 6.8, Albumin 3.6, Globulin 3.2, Albumin/Globulin Ratio 1.1 03/13/17 20:01: PT 11.3, INR 0.99 03/13/17 20:01: WBC 6.5 D, RBC 3.55, Hgb 10.3 L, Hct 33.3 L, MCV 93.8, MCH 29.0 , MCHC 30.9 L, RDW 14.4, Plt Count 126, MPV 12.4 H, Gran % 69.9 H, Lymph % (Auto ) 22.4, Fleming % (Auto) 6.9 H, Eos % (Auto) 0.5 L, Baso % (Auto) 0.3, Gran # 4.57 , Lymph # 1.5, Fleming # 0.5, Eos # 0.0, Baso # 0.02 I have reviewed the lab results: Yes - RAD Interpretation Radiology Orders: 03/13/17 19:19 HEAD W/O CONTRAST [CT] Stat CHEST PORTABLE [RAD] Stat 03/13/17 19:23 CERVICAL SPINE W/O CONTRAST [CT] Stat - Medication Orders Current Medication Orders: Discontinued Medications Lorazepam (Ativan) 0.5 mg PO ONCE ONE PRN Reason: Protocol Stop: 03/13/17 19:20 Last Admin: 03/13/17 19:35 Dose: 0.5 mg Pregabalin (Lyrica) 100 mg PO ONCE ONE Stop: 03/13/17 19:21 Last Admin: 03/13/17 19:36 Dose: 100 mg - Scribe Statement The provider has reviewed the documentation as recorded by the Latisha Mota Provider Scribe Attestation: All medical record entries made by the Shortyibsurinder were at my direction and personally dictated by me. I have reviewed the chart and agree that the record accurately reflects my personal performance of the history, physical exam, medical decision making, and the department course for this patient. I have also personally directed, reviewed, and agree with the discharge instructions and disposition. Disposition/Present on Arrival - Present on Arrival Any Indicators Present on Arrival: No History of DVT/PE: No History of Uncontrolled Diabetes: No Urinary Catheter: No History of Decub. Ulcer: No History Surgical Site Infection Following: None - Disposition Have Diagnosis and Disposition been Completed?: Yes Diagnosis: Anxiety, Neuropathy Disposition: HOME/ ROUTINE Disposition Time: 22:52 Patient Plan: Discharge Condition: IMPROVED Discharge Instructions (ExitCare): Anxiety (ED), Peripheral Neuropathy (ED) Additional Instructions: Mr Pantoja- Elia that you are having this problem. I believe it is mostly anxiety. Take your motrin as needed. Follow up with your regular doctors and return to us if worse or any problems. Best- Dr. Maximus Haile Referrals: Megan Sheth MD [Primary Care Provider] - Follow up with primary Forms: [employer] (Icelandic)
[2017-03-13 20:19] LABS: ALB/GLOB RATIO 1.1 (1.1-1.8); ALBUMIN 3.6 g/dL (3.0-4.8); ALT/SGPT 16 U/L (7-56); AST/SGOT 32 U/L (17-59); BLOOD UREA NITROGEN 19 mg/dL (7-21); CALCIUM 9.7 mg/dL (8.4-10.5); GFR AFRICAN-AMERICAN > 60; GFR NON-AFRICAN AMERICAN > 60
[2017-03-13 20:23] LABS: BASO # 0.02 K/mm3 (0.0-2.0); BASO % 0.3 % (0.0-3.0); EOS % 0.5 % (1.5-5.0); GRAN # 4.57 (1.4-6.5); GRAN % 69.9 % (50.0-68.0); HEMOGLOBIN 10.3 g/dL (14.0-18.0); LYMPH # 1.5 (1.2-3.4); LYMPH % 22.4 % (22.0-35.0); MEAN CELL VOLUME 93.8 fl (80.0-105.0); MEAN CORPUSCULAR HGB CONC 30.9 g/dl (31.0-37.0); MEAN PLATELET VOLUME 12.4 fl (7.0-11.0); MONO # 0.5 (0.1-0.6); MONO % 6.9 % (1.0-6.0); RBC 3.55 10^6/uL (3.5-6.1); RED CELL DISTRIBUTION WIDTH 14.4 % (11.5-14.5); WHITE BLOOD COUNT 6.5 10^3/ul (4.5-11.0)
[2017-03-13 20:40] LABS: INR 0.99 (0.93-1.08); PROTHROMBIN TIME 11.3 SECONDS (9.4-12.5)
[2017-03-13 20:41] LABS: TROPONIN I < 0.01 ng/mL
--- NOTE | 2017-03-13 22:19 | CT ---
EXAM: CT Cervical Spine Without Intravenous Contrast EXAM DATE/TIME: 03/13/2017 7:23 PM CLINICAL HISTORY: 81 years old, male; Signs and symptoms; Numbness; Additional info: Bony prostate mets, upper extremity pain bilat TECHNIQUE: Axial computed tomography images of the cervical spine without intravenous contrast. All CT scans at this facility use one or more dose reduction techniques, viz.: automated exposure control; ma/kV adjustment per patient size (including targeted exams where dose is matched to indication; i.e. head); or iterative reconstruction technique. Coronal and sagittal reformatted images were created and reviewed. COMPARISON: There are no prior studies for comparison. FINDINGS: Vertebrae: There are multiple lytic and blastic lesions in all visualized skeletal structures. The There is straightening of the cervical lordosis. There is no prevertebral soft tissue swelling. There are no fractures. There is multilevel degenerative change. There is disc space narrowing at all levels greatest at C4-C5, C5-C6 C6-C7 and C7-T1. There are posterior osteophytes greatest C4-C5 and C5-C6. There is narrowing of all facet joints. Facet joints align anatomically. Spinous processes align in the expected fashion. Discs/spinal canal/neural foramina: See above. Soft tissues: See above. Lung apices: There is bullous emphysema at the lung apices right greater than left. IMPRESSION: Diffuse bony metastatic disease, no acute fracture; multilevel degenerative change; bullous emphysema
[2017-03-13 22:27] VITALS: RESP 16; O2SAT 100
[2017-03-13 23:30] VITALS: BP 148/86; PULSE 80; TEMP 98.6
--- NOTE | 2017-03-14 08:34 | CT ---
PROCEDURE: CT HEAD WITHOUT CONTRAST. HISTORY: Neuropathy/Paresthesia Both Upper Extremities COMPARISON: 10/10/2016 TECHNIQUE: Axial computed tomography images were obtained through the head/brain without intravenous contrast. Radiation dose: Total exam DLP = 1045.00 mGy-cm. This CT exam was performed using one or more of the following dose reduction techniques: Automated exposure control, adjustment of the mA and/or kV according to patient size, and/or use of iterative reconstruction technique. FINDINGS: HEMORRHAGE: No intracranial hemorrhage. BRAIN: No mass effect or edema. Minimal atrophy less than expected for patient age. Mild to moderate periventricular white matter lucency consistent with chronic microvascular ischemic change. Small old bilateral basal ganglia lacunar infarcts. Old bilateral colonic lacunar infarcts. Old left pontine lacunar infarct. VENTRICLES: Unremarkable. No hydrocephalus. CALVARIUM: Unremarkable. PARANASAL SINUSES: Mild chronic bilateral maxillary sinusitis. MASTOID AIR CELLS: Unremarkable as visualized. No inflammatory changes. OTHER FINDINGS: None. IMPRESSION: No intracranial mass, hemorrhage or evidence of acute infarct. Mild to moderate chronic white matter ischemic change. 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 Chronic bilateral maxillary sinusitis. Preliminary interpretation of this examination was reported by [facility] at 9:48 p.m. on 03/13/2017. There is concurrence of this report with the preliminary interpretation.
--- NOTE | 2017-03-14 14:00 | RAD ---
HISTORY: Neuropathy COMPARISON: 01/20/2017 FINDINGS: LUNGS: There is a large bulla in the right upper lobe. This is unchanged. There is some vascular crowding at the right lung base. The lungs are otherwise clear PLEURA: No significant pleural effusion identified, no pneumothorax apparent. CARDIOVASCULAR: Normal. OSSEOUS STRUCTURES: No significant abnormalities. VISUALIZED UPPER ABDOMEN: Normal. OTHER FINDINGS: None. IMPRESSION: There is a large bulla in the right upper lobe. This is unchanged. There is some vascular crowding at the right lung base. The lungs are otherwise clear
--- NOTE | 2017-03-14 17:37 | CARD ---
APPROVED REPORT EKG Measurement Heart [id number] <Conclusion> Normal sinus rhythm Left axis deviation Septal infarct, age undetermined Abnormal ECG
== END 2017-03-13 23:28 | disposition home or self-care (01) ==
LOC: ED 18:20
DX: F41.9 Anxiety disorder, unspecified (principal); G62.9 Polyneuropathy, unspecified; E03.9 Hypothyroidism, unspecified; J44.9 Chronic obstructive pulmonary disease, unspecified; Z85.46 Personal history of malignant neoplasm of prostate; Z87.891 Personal history of nicotine dependence

== ENCOUNTER 2017-03-18 08:35 | Inpatient (IN) | payer MEDICARE, OTHER ==
--- NOTE | 2017-03-18 08:59 | ED PDOC ---
Arrival/HPI - General Chief Complaint: Shortness Of Breath Time Seen by Provider: 03/18/17 08:36 Historian: Patient - History of Present Illness Narrative History of Present Illness (Text): 03/18/17 08:56 81 year old male, with past medical history of anxiety, COPD, sleep apnea, prostrate cancer, and hypothyroidism, presents to the emergency department via EMS complaining of shortness of breath since last night. Patient informs taking his nebulizer with no relief to symptoms bringing him to the emergency department today. Patient additionally informs coughing with production of yellow sputum. Patient notes mild chest discomfort associated with coughing. Patient informs compliance with flu shot this year. Patient informs mild dizziness but denies any fever, chills, nausea, vomiting, diarrhea, abdominal pain, blood in cough, or any other complaints. PMD: Dr. Sheth 03/19/17 10:26 Time/Duration: 24 hours Symptom Onset: Gradual Symptom Course: Unchanged Activities at Onset: Light Context: Home Past Medical History - Provider Review Nursing Documentation Reviewed: Yes - Infectious Disease Hx of Infectious Diseases: None - Cardiac Hx Cardiac Disorders: Yes - Pulmonary Hx Respiratory Disorders: Yes Hx Chronic Obstructive Pulmonary Disease (COPD): Yes - Neurological Hx Neurological Disorder: Yes Hx Dizziness: Yes (VERTIGO) - HEENT Hx HEENT Disorder: Yes (eyeglasses) Hx Cataracts: Yes (b/l sx) Hx Glaucoma: Yes (b/l takes eye drops) - Renal Hx Renal Disorder: No - Endocrine/Metabolic Hx Diabetes Mellitus Type 2: (denies) Hx Hypothyroidism: Yes - Hematological/Oncological Hx Blood Disorders: Yes Hx Anemia: Yes Hx Cancer: Yes (PROSTATE-takes Zytiga) Other/Comment: pt first dx 2000 with prostate ca tx with hormone injections, then in 2003 dx again had 9 weeks of radiation 5 days a week and homone injections zoladex both times was maintained on zoladex for 12 yrs, then dx 2016 now takes zytiga hormone based chemo in pill form daily (FROM PAST TRIAGE) - Integumentary Hx Dermatological Disorder: Yes Other/Comment: ble dry skin - Musculoskeletal/Rheumatological Hx Musculoskeletal Disorders: Yes Hx Falls: Yes (09/2016) Hx Fractures: Yes (Feb 2017, humerus fx) - Gastrointestinal Hx Gastrointestinal Disorders: Yes (CONSTIPATION) - Genitourinary/Gynecological Hx Genitourinary Disorders: Yes (self-catheterization at times) Hx Prostate Problems: Yes (PROSTATE CA) Other/Comment: cystoscopy, after radiation treatments in 2003 pt had 2wf x 3 months and sometimes has to self catherize himself - Psychiatric Hx Psychophysiologic Disorder: No Hx Substance Use: No - Anesthesia Hx Anesthesia: Yes Hx Anesthesia Reactions: No Hx Malignant Hyperthermia: No Family/Social History - Physician Review Nursing Documentation Reviewed: Yes Family/Social History: No Known Family HX Smoking Status: Former Smoker Hx Alcohol Use: No Hx Substance Use: No Allergies/Home Meds Allergies/Adverse Reactions: Allergies No Known Allergies Allergy (Verified 03/18/17 08:41) Home Medications: Home Meds Medication Instructions Recorded Confirmed Abiraterone Acetate [Zytiga] 1,000 mg PO DAILY 03/18/17 03/18/17 Budesonide/Formoterol Fumarate 2 puff IH BID 03/18/17 03/18/17 [Symbicort] Fluticasone Nasal [Flonase] 2 spr NS BID PRN 03/18/17 03/18/17 Latanoprost 0.005% Opht [XALATAN 1 drp OU HS 03/18/17 03/18/17 2.5 Ml] Levothyroxine [Synthroid] 112 mcg PO DAILY 03/18/17 03/18/17 Prednisone [Harsh] 5 mg PO BID 03/18/17 03/18/17 Review of Systems - Review of Systems Constitutional: Fatigue, Fevers Eyes: absent: Vision Changes ENT: absent: Voice Changes, Sore Throat Respiratory: SOB, Cough, Sputum (yellow ), Wheezing Cardiovascular: Chest Pain (when coughing) Gastrointestinal: absent: Abdominal Pain, Diarrhea, Nausea, Vomiting Genitourinary Male: Normal Skin: absent: Rash Neurological: Dizziness (mild ) Physical Exam - Physical Exam Narrative Physical Exam (Text): 03/18/17 09:11 Head: Atraumatic. Normocephalic. Eyes: PERRL. EOMI. Conjunctivae are not pale. ENT: Mucous membranes are moist and intact. Oropharynx is clear and symmetric. Neck: Supple. Full ROM. No JVD. No lymphadenopathy. Cardiovascular: Regular rate. Regular rhythm. No murmurs, rubs, or gallops. Distal pulses are 2+ and symmetric. Pulmonary/Chest: Tachypneic. Bilateral expiratory wheezing with rhonchi. Abdominal: Soft and non-distended. There is no tenderness. No rebound, guarding, or rigidity. Back: No CVA tenderness. Extremities: Bilateral leg edema. No cyanosis. No clubbing. Full range of motion in all extremities. No calf tenderness. Skin: Skin is warm and dry. No petechiae. No purpura. Neurological: Alert, awake, and oriented to person, place, time, and situation. Normal speech. Psychiatric: Good eye contact. No meningeal signs. Motor and sensory exam intact. 03/19/17 10:28 Vital Signs Reviewed: Yes Vital Signs Temp Pulse Resp BP Pulse Ox 03/18/17 11:05 95 H 22 149/78 99 03/18/17 08:44 98.5 F 80 26 H 152/71 H 100 03/18/17 08:40 20 Temperature: Afebrile Blood Pressure: Hypertensive Pulse: Regular Respiratory Rate: Tachypneic Appearance: Positive for: Well-Appearing, Non-Toxic, Comfortable Pain Distress: None Mental Status: Positive for: Alert and Oriented X 3 Medical Decision Making ED Course and Treatment: 03/18/17 09:13 Impression: 81 year old male presents to the emergency department for shortness of breath with productive coughing. Differential Diagnosis included but are not limited to: COPD exacerbation vs. pneumonia vs. CHF vs. influenza Plan: -- EKG -- Labs -- CXR -- Blood culture -- Urine Culture -- Urinalysis -- Duoneb -- Solumedrol -- Reassess and disposition Progress Notes: Patient tachypneic, sob on arrival. IV solumedrol and multiple nebs given. Improvement but persistence in wheezing. On re-exam, more comfortable, eating without difficulty. 03/18/17 09:33 Chest X-ray reviewed by radiologist, shows redemonstration of large bulla in the right upper lobe. No pneumothorax. 03/19/17 10:29 Positive influenza. Precautions initiated. Tamiflu ordered. Will admit for COPD exacerbation to telemetry bed as patient requires multiple nebulizers, positive influenzas with risk factors. Case jonathon Phillips, accepts patient to her service. Reassessment Condition: Improving,but remains with symptoms - Lab Interpretations Microbiology Results: Microbiology Results 03/18/17 09:39 Blood Blood Culture - Preliminary NO GROWTH AFTER 24 HOURS 03/18/17 09:09 Blood Blood Culture - Preliminary NO GROWTH AFTER 24 HOURS Lab Results: 03/18/17 09:09 03/18/17 09:09 Lab Results 03/18/17 09:09: Influenza Typ A,B (EIA) Pos for influenza a H 03/18/17 09:09: Sodium 141, Potassium 3.7, Chloride 107, Carbon Dioxide 25, Anion Gap 13, BUN 10, Creatinine 0.8, Est GFR ( Amer) > 60, Est GFR (Non- Af Amer) > 60, Random Glucose 106, Calcium 9.6, Total Bilirubin 1.0, AST 21, ALT 27, Alkaline Phosphatase 232 H D, Lactate Dehydrogenase 630, Total Creatine Kinase 128, Troponin I < 0.01, NT-Pro-B Natriuret Pep 198, Total Protein 6.5, Albumin 3.6, Globulin 2.9, Albumin/Globulin Ratio 1.3 03/18/17 09:09: PT 11.7, INR 1.02, APTT 32.7 03/18/17 09:09: WBC 3.9 L D, RBC 3.41 L, Hgb 10.0 L, Hct 32.0 L, MCV 93.8, MCH 29.3, MCHC 31.3, RDW 14.6 H, Plt Count 142, MPV 11.1 H, Gran % 55.9, Lymph % ( Auto) 32.3, [place] % (Auto) 11.2 H, Eos % (Auto) 0.3 L, Baso % (Auto) 0.3, Gran # 2.20, Lymph # 1.3, [place] # 0.4, Eos # 0.0, Baso # 0.01 - RAD Interpretation Radiology Orders: 03/18/17 08:55 CHEST PORTABLE [RAD] Stat Acute Care Nursing Assistant: Radiologist - EKG Interpretation Interpreted by ED Physician: Yes Type: 12 lead EKG - Medication Orders Current Medication Orders: Acetaminophen (Tylenol 325mg Tab) 650 mg PO Q6H PRN PRN Reason: Pain, Mild (1-3) Last Admin: 03/19/17 10:03 Dose: 650 mg MAR Pain/Vitals Document 03/19/17 10:03 [email or web address] (Rec: 03/19/17 10:03 [id number] [facility] [id number]) Pain Reassessment Is This A Pain ReAssessment? No Presence of Pain Presence of Pain Yes Pain Scale Used Pain Scale Used Numeric Location Left, Right or Bilateral Left Pain Location Body Site Arm Description Intermittent Intensity 5 Scale Used Numeric Pain Behavior Facial Grimacing Aggravating Factors None Alleviating Factors Medication Albuterol/Ipratropium (Duoneb 3 Mg/0.5 Mg (3 Ml) Ud) 3 ml IH [id number] PRN PRN Reason: Shortness of Breath Last Admin: 03/19/17 07:59 Dose: 3 ml Benzocaine/Menthol (Cepacol Sore Throat) 1 eli MT Q2H PRN PRN Reason: Sore Throat Last Admin: 03/18/17 22:59 Dose: 1 eli Famotidine (Pepcid) 40 mg PO HS KRYS Last Admin: 03/18/17 21:25 Dose: 40 mg Fluticasone Propionate (Flonase) 1 actuation NS BID PRN PRN Reason: Sinus symptoms Last Admin: 03/19/17 10:01 Dose: 1 spray Home Med (Home Med) 2 unit PO ACB [facility] Last Admin: 03/19/17 08:53 Dose: 2 unit Latanoprost (Xalatan Opht) 0.05 ml OU HS [facility] Last Admin: 03/18/17 21:25 Dose: 0.05 ml Levothyroxine Sodium (Synthroid) 112 mcg PO 0600 [facility] Last Admin: 03/19/17 05:57 Dose: 112 mcg Lidocaine (Lidoderm) 1 ea TD DAILY [facility] Last Admin: 03/19/17 10:00 Dose: 1 ea MAR Transdermal Patch Site Document 03/19/17 10:00 [id number] (Rec: 03/19/17 10:01 [id number] [facility] [id number]) Transdermal Patch Site Transdermal Patch Site Left Lower Back Oseltamivir Phosphate (Tamiflu Cap) 75 mg PO BID KRYS PRN Reason: Protocol Stop: 03/23/17 12:47 Last Admin: 03/19/17 09:59 Dose: 75 mg Prednisone (Prednisone Tab) 5 mg PO BIDWM KRYS Last Admin: 03/19/17 09:45 Dose: 5 mg Tramadol HCl (Ultram) 50 mg PO BID PRN PRN Reason: Pain, moderate (4-7) Last Admin: 03/19/17 06:04 Dose: 50 mg MAR Pain Assessment Document 03/19/17 06:04 TX (Rec: 03/19/17 06:04 TX [facility] [id number]) Pain Reassessment Is this a pain reassessment? No Sleep Is patient sleeping during reassessment? No Presence of Pain Presence of Pain Yes Pain Scale Used Pain Scale Used Numeric Location Left, Right or Bilateral Left Pain Location Body Site Arm Description Intensity of Pain at present 7 Alleviating Factors/Management Medication Techniques Alleviating Factors Medication Re-Assess: [facility] Pain Assessment Document 03/19/17 07:04 [id number] (Rec: 03/19/17 10:03 [email or web address] [facility] [id number]) Pain Reassessment Is this a pain reassessment? Yes Sleep Is patient sleeping during reassessment? Yes Discontinued Medications Albuterol/Ipratropium (Duoneb 3 Mg/0.5 Mg (3 Ml) Ud) 3 ml IH Q15M KRYS Stop: 03/18/17 09:31 Last Admin: 03/18/17 10:39 Dose: 3 ml Methylprednisolone (Solu-Medrol) 125 mg IVP STAT STA Stop: 03/18/17 08:58 Last Admin: 03/18/17 09:20 Dose: 125 mg IVP Administration Document 03/18/17 09:20 [email or web address] (Rec: 03/18/17 09:20 [email or web address] [id number]) Charges for Administration # of IVP Administrations 1 Oseltamivir Phosphate (Tamiflu Cap) 75 mg PO STAT STA PRN Reason: Protocol Stop: 03/18/17 09:42 Last Admin: 03/18/17 10:36 Dose: 75 mg Pneumococcal Polyvalent Vaccine (Pneumovax 23 Vaccine) 0.5 ml IM .ONCE ONE Stop: 03/18/17 12:50 Tramadol HCl (Ultram) 50 mg PO BID [facility] Last Admin: 03/18/17 14:38 Dose: 50 mg [facility] Pain Assessment Document 03/18/17 14:38 MF (Rec: 03/18/17 14:39 [id number]) Pain Reassessment Is this a pain reassessment? No Presence of Pain Presence of Pain Yes Pain Scale Used Pain Scale Used Numeric Location Left, Right or Bilateral Left Pain Location Body Site Shoulder Description Description Sharp Intensity of Pain at present 7 Pain Behavior Irritability Grasping Site Alleviating Factors/Management Medication Techniques Re-Assess: [facility] Pain Assessment Document 03/18/17 15:38 MF (Rec: 03/18/17 18:51 MF [id number]) Pain Reassessment Is this a pain reassessment? Yes Presence of Pain Presence of Pain No - Scribe Statement The provider has reviewed the documentation as recorded by the Scribe Davin Wadsworth. All medical record entries made by the Scribe were at my direction and personally dictated by me. I have reviewed the chart and agree that the record accurately reflects my personal performance of the history, physical exam, medical decision making, and the department course for this patient. I have also personally directed, reviewed, and agree with the discharge instructions and disposition. Disposition/Present on Arrival - Present on Arrival Any Indicators Present on Arrival: No History of DVT/PE: No History of Uncontrolled Diabetes: No Urinary Catheter: No History of Decub. Ulcer: No History Surgical Site Infection Following: None - Disposition Have Diagnosis and Disposition been Completed?: Yes Diagnosis: Chronic obstructive lung disease, Influenza Disposition: HOSPITALIZED Disposition Time: 10:30 Patient Plan: Admission Patient Problems: Current Active Problems Problem Status Onset Chronic obstructive lung disease Acute Influenza Acute Condition: SERIOUS
--- NOTE | 2017-03-18 09:19 | RAD ---
HISTORY: Shortness of breath COMPARISON: 03/13/2017. FINDINGS: LUNGS: Again seen is a large bulla in the right upper lobe. There is subsegmental atelectasis in the right mid lung and lower lobe. The lungs are hyperinflated and there is peribronchial thickening with chronic changes in both lungs. PLEURA: No significant pleural effusion identified, no pneumothorax apparent. CARDIOVASCULAR: Normal. OSSEOUS STRUCTURES: No significant abnormalities. VISUALIZED UPPER ABDOMEN: Normal. OTHER FINDINGS: None. IMPRESSION: Redemonstration of large bulla in the right upper lobe. No pneumothorax. COPD.
[2017-03-18 09:20] LABS: BASO # 0.01 K/mm3 (0.0-2.0); BASO % 0.3 % (0.0-3.0); EOS % 0.3 % (1.5-5.0); GRAN # 2.2 (1.4-6.5); GRAN % 55.9 % (50.0-68.0); LYMPH # 1.3 (1.2-3.4); LYMPH % 32.3 % (22.0-35.0); MEAN CELL VOLUME 93.8 fl (80.0-105.0); MEAN CORPUSCULAR HEMOGLOBIN 29.3 pg (25.0-35.0); MEAN CORPUSCULAR HGB CONC 31.3 g/dl (31.0-37.0); MEAN PLATELET VOLUME 11.1 fl (7.0-11.0); MONO # 0.4 (0.1-0.6); MONO % 11.2 % (1.0-6.0); RBC 3.41 10^6/uL (3.5-6.1); RED CELL DISTRIBUTION WIDTH 14.6 % (11.5-14.5); WHITE BLOOD COUNT 3.9 10^3/ul (4.5-11.0)
[2017-03-18] MEDS: Albuterol-Ipratrop 3 mg / 0.5 (3 ml) UD IH SCH ×3 (09:20→10:39)
[2017-03-18 09:34] LABS: ALB/GLOB RATIO 1.3 (1.1-1.8); ALBUMIN 3.6 g/dL (3.0-4.8); ALT/SGPT 27 U/L (7-56); AST/SGOT 21 U/L (17-59); BLOOD UREA NITROGEN 10 mg/dL (7-21); CALCIUM 9.6 mg/dL (8.4-10.5); GFR AFRICAN-AMERICAN > 60; GFR NON-AFRICAN AMERICAN > 60
[2017-03-18 09:40] LABS: B-TYPE NATRIURETIC PEPTIDE 198 pg/mL (0-450); TROPONIN I < 0.01 ng/mL
[2017-03-18 09:50] LABS: INR 1.02 (0.93-1.08); PARTIAL THROMBOPLASTIN TIME 32.7 Seconds (25.1-36.5); PROTHROMBIN TIME 11.7 SECONDS (9.4-12.5)
[2017-03-18 10:44] LABS: URINE BILIRUBIN NEGATIVE (NEGATIVE); URINE BLOOD NEGATIVE (NEGATIVE); URINE GLUCOSE (UA) NEGATIVE (NEGATIVE); URINE LEUKOCYTE ESTERASE NEGATIVE Leu/uL (NEGATIVE); URINE NITRATE NEGATIVE (NEGATIVE); URINE PROTEIN NEGATIVE mg/dL (<30 mg/dL); URINE UROBILINOGEN 0.2 E.U./dL (<1 E.U./dL)
[2017-03-18 10:45] LABS: URINE APPEARANCE CLEAR (CLEAR); URINE COLOR YELLOW (YELLOW)
[2017-03-18 12:48] VITALS: BMI 31.1
[2017-03-18] MEDS ORDERED: Influenza Vaccine 60 mcg/0.5 mL SYR (4YR UP) IM ONE (12:49)
[2017-03-18] MEDS ORDERED: Pneumococcal 23-Valent Vaccine IM ONE (12:49)
[2017-03-18] MEDS: Albuterol-Ipratrop 3 mg / 0.5 (3 ml) UD IH PRN (14:45)
--- NOTE | 2017-03-18 15:50 | CARD ---
APPROVED REPORT EKG Measurement Heart [id number] <Conclusion> Normal sinus rhythm Incomplete right bundle branch block Nonspecific T wave abnormality Abnormal ECG
[2017-03-18] MEDS: Benzocaine/Menthol (Cepacol) Lozenge MT PRN ×2 (18:46→22:59)
--- NOTE | 2017-03-18 21:04 | CP.PCM.CON ---
History of Present Illness - History of Present Illness History of Present Illness: Infectious Disease Consultation: March 18, 2017 81 yo male complaining of shortness of breath since last night. Patient complains of cough with production of yellow sputum. Extensive medical history that includes anxiety, COPD, prostate cancer, sleep apnea, and hypothyroidism. The patient has had several visits to the ER. Last hospitalization was January 2017. 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 PSHx: cataract surgery bilaterally Allergies: NKDA Social Hx: Former smoker. No EtOH or illicit drug use Active Medications Acetaminophen (Tylenol 325mg Tab) 650 mg PO Q6H PRN PRN Reason: Pain, Mild (1-3) Albuterol/Ipratropium (Duoneb 3 Mg/0.5 Mg (3 Ml) Ud) 3 ml IH [id number] PRN PRN Reason: Shortness of Breath Last Admin: 03/18/17 14:45 Dose: 3 ml Benzocaine/Menthol (Cepacol Sore Throat) 1 eli MT Q2H PRN PRN Reason: Sore Throat Last Admin: 03/18/17 18:46 Dose: 1 eli Famotidine (Pepcid) 40 mg PO HS KRYS Fluticasone Propionate (Flonase) 1 actuation NS BID PRN PRN Reason: Sinus symptoms Latanoprost (Xalatan Opht) 0.05 ml OU HS KRYS Levothyroxine Sodium (Synthroid) 112 mcg PO 0600 KRYS Lidocaine (Lidoderm) 1 ea TD DAILY KRYS Non-Formulary Medication (Abiraterone Acetate [Zytiga]) 1,000 mg PO DAILY KRYS Oseltamivir Phosphate (Tamiflu Cap) 75 mg PO BID KRYS PRN Reason: Protocol Stop: 03/23/17 12:47 Last Admin: 03/18/17 18:45 Dose: 75 mg Prednisone (Prednisone Tab) 5 mg PO BIDWM KRYS Tramadol HCl (Ultram) 50 mg PO BID PRN PRN Reason: Pain, moderate (4-7) Family Hx: hypertension ROS: cough, SOB, mild chest discomfort, anxiety. NO fevers, chills, nausea, vomiting, headaches, dizziness, abdominal pain, melena, hematuria, hematemesis, hematochezia, depression Past Patient History - Infectious Disease Hx of Infectious Diseases: None - Past Social History Smoking Status: Former Smoker - CARDIAC Hx Cardiac Disorders: Yes Hx Hypercholesterolemia: Yes (meds dc/d by doctor) Hx Hypertension: (pt denies) Hx Peripheral Edema: Yes (ble +1) - PULMONARY Hx Respiratory Disorders: Yes Hx Asthma: Yes Hx Chronic Obstructive Pulmonary Disease (COPD): Yes Hx Sleep Apnea: Yes (cpap at home) - NEUROLOGICAL Hx Neurological Disorder: Yes Hx Dizziness: Yes (VERTIGO) Other/Comment: 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 - HEENT Hx HEENT Problems: Yes (eyeglasses) Hx Cataracts: Yes (b/l sx) Hx Glaucoma: Yes (b/l takes eye drops) - RENAL Hx Chronic Kidney Disease: No - ENDOCRINE/METABOLIC Hx Diabetes Mellitus Type 2: (denies) Hx Hypothyroidism: Yes - HEMATOLOGICAL/ONCOLOGICAL Hx Blood Disorders: Yes Hx Anemia: Yes Hx Cancer: Yes (PROSTATE-takes Zytiga) Other/Comment: pt first dx 2000 with prostate ca tx with hormone injections, then in 2003 dx again had 9 weeks of radiation 5 days a week and homone injections zoladex both times was maintained on zoladex for 12 yrs, then dx 2016 now takes zytiga hormone based chemo in pill form daily - INTEGUMENTARY Hx Dermatological Problems: Yes Other/Comment: ble dry skin, dry skin patch to lle - MUSCULOSKELETAL/RHEUMATOLOGICAL Hx Falls: Yes (last fall 03/06/17 fx humerus) - GASTROINTESTINAL Hx Gastrointestinal Disorders: Yes (CONSTIPATION) - GENITOURINARY/GYNECOLOGICAL Hx Genitourinary Disorders: Yes (self-catheterization at times) Hx Prostate Problems: Yes (PROSTATE CA) Other/Comment: cystoscopy, after radiation treatments in 2003 pt had 2wf x 3 months and sometimes has to self catherize himself, voids "a little" - PSYCHIATRIC Hx Substance Use: No - SURGICAL HISTORY Hx Surgeries: Yes (cystoscopy) - ANESTHESIA Hx Anesthesia: Yes Hx Anesthesia Reactions: No Hx Malignant Hyperthermia: No Meds Allergies/Adverse Reactions: Allergies Allergy/AdvReac Type Severity Reaction Status Date / Time No Known Allergies Allergy Verified 03/18/17 08:41 - Medications Medications: Current Medications Acetaminophen (Tylenol 325mg Tab) 650 mg PO Q6H PRN PRN Reason: Pain, Mild (1-3) Albuterol/Ipratropium (Duoneb 3 Mg/0.5 Mg (3 Ml) Ud) 3 ml IH [id number] PRN PRN Reason: Shortness of Breath Last Admin: 03/18/17 14:45 Dose: 3 ml Benzocaine/Menthol (Cepacol Sore Throat) 1 eli MT Q2H PRN PRN Reason: Sore Throat Last Admin: 03/18/17 18:46 Dose: 1 eli Famotidine (Pepcid) 40 mg PO HS KRYS Fluticasone Propionate (Flonase) 1 actuation NS BID PRN PRN Reason: Sinus symptoms Latanoprost (Xalatan Opht) 0.05 ml OU HS KRYS Levothyroxine Sodium (Synthroid) 112 mcg PO 0600 KRYS Lidocaine (Lidoderm) 1 ea TD DAILY KRYS Non-Formulary Medication (Abiraterone Acetate [Zytiga]) 1,000 mg PO DAILY KRYS Oseltamivir Phosphate (Tamiflu Cap) 75 mg PO BID KRYS PRN Reason: Protocol Stop: 03/23/17 12:47 Last Admin: 03/18/17 18:45 Dose: 75 mg Prednisone (Prednisone Tab) 5 mg PO BIDWM KRYS Tramadol HCl (Ultram) 50 mg PO BID PRN PRN Reason: Pain, moderate (4-7) Physical Exam - Constitutional Appears: Non-toxic, No Acute Distress, Chronically Ill - Head Exam Head Exam: ATRAUMATIC, NORMOCEPHALIC - Eye Exam Eye Exam: EOMI, PERRL Pupil Exam: NORMAL ACCOMODATION, PERRL - ENT Exam ENT Exam: Mucous Membranes Moist, Normal External Ear Exam, TM's Normal Bilaterally - Neck Exam Neck exam: Positive for: Full Rom, Normal Inspection - Respiratory Exam Respiratory Exam: Decreased Breath Sounds, Rhonchi Additional comments: tachypnia. - Cardiovascular Exam Cardiovascular Exam: REGULAR RHYTHM, RRR, +S1, +S2 - GI/Abdominal Exam GI & Abdominal Exam: Normal Bowel Sounds, Soft. absent: Distended, Tenderness - Extremities Exam Extremities exam: Positive for: joint swelling, pedal edema Additional comments: bilateral leg edema +2 - Neurological Exam Neurological exam: Alert, CN II-XII Intact, Oriented x3 - Psychiatric Exam Psychiatric exam: Normal Affect, Normal Mood Results - Vital Signs Recent Vital Signs: Last Vital Signs Temp 98.5 F 03/18/17 12:39 Pulse 88 03/18/17 18:00 Resp 22 03/18/17 12:39 BP 149/78 03/18/17 12:39 Pulse Ox 98 03/18/17 11:16 - Labs Result Diagrams: 03/18/17 09:09 03/18/17 09:09 Labs: Laboratory Results - last 24 hr 03/18/17 10:39 Urine Color Yellow Urine Appearance Clear Urine pH 6.0 Ur Specific [place] 1.015 Urine Protein Negative Urine Glucose (UA) Negative Urine Ketones Negative Urine Blood Negative Urine Nitrate Negative Urine Bilirubin Negative Urine Urobilinogen 0.2 Ur Leukocyte Esterase Negative Assessment & Plan - Assessment and Plan (Free Text) Assessment: 81 yo male with SOB and Stage IV prostate cancer. Leukopenia. Large bullae in the upper lobes. Positive for influenza. Start Tamiflu. Supportive care. Poor oil heaterman prognosis. Judging from the previous hospitalization, the patient has few options. Would hold off on antibiotic therapy and continue on Tamiflu alone for 5 days. Supportive care. Maintain oxygen levels. Thank you for allowing me to participate in the care of the patient, we will follow with you.
[2017-03-18] MEDS: Latanoprost 2.5 ml Opht Soln OU SCH (21:25)
[2017-03-18] MEDS: Fluticasone Nasal 50 mcg/Spray NS PRN (21:26)
[2017-03-19] MEDS: Albuterol-Ipratrop 3 mg / 0.5 (3 ml) UD IH PRN ×3 (00:15→13:58)
--- NOTE | 2017-03-19 04:06 | HP ---
CHIEF COMPLAINT: Shortness of breath. HISTORY OF PRESENT ILLNESS: Mr. Sam Pantoja is an 81-year-old male with past medical history of anxiety, COPD, sleep apnea, prostate cancer with metastases, hypothyroidism, who came to the emergency department via EMS, complaining of shortness of breath since last night. The patient informed taking his nebulizer with no relief to the symptoms , to the emergency department. The patient is informed coughing with production of yellow sputum. The patient noticed mild chest discomfort associated with coughing. The patient is complaining about flu-like symptoms. According to him, he already has a flu shot for this year. The patient is complaining of mild dizziness, but denies any nausea, vomiting, or diarrhea. No abdominal pain. He is coughing with phlegm. PAST MEDICAL HISTORY: As above, anxiety; COPD; sleep apnea syndrome; hypothyroidism; vertigo; history of cataract; glaucoma; diabetes mellitus; anemia; prostate cancer, takes Zytiga; history of fall; constipation; status post radiation therapy and chemotherapy. FAMILY HISTORY: Father and mother noncontributory. HABITS: Former smoker, no smoking now. No drug. No ethanol. ALLERGIES: THE PATIENT IS NOT ALLERGIC WITH ANY MEDICATIONS. HOME MEDICATIONS: The patient does not remember. REVIEW OF SYSTEMS: The patient is seen and examined at the bedside in the emergency room, having oxygen with nasal cannula and getting nebulizer treatment, still coughing, having shortness of breath, sputum production, wheezing, chest pain when coughing. No abdominal pain, diarrhea, nausea or vomiting. No hematuria, hematochezia, or swelling of the leg. Mild dizziness. PHYSICAL EXAMINATION: VITAL SIGNS: Temperature 98.5, pulse 80, respiratory rate 26, blood pressure 152/71, pulse oximetry of 100%. HEENT: Head is normocephalic and atraumatic. Eyes: PERRLA. Extraocular muscles are intact. Conjunctivae are clear. Nose is patent. Mucous membranes are moist. NECK: Supple. No carotid bruits. No thyromegaly. CHEST: Bilaterally symmetrical. HEART: S1 and S2 positive. LUNGS: Tachypneic, bilateral expiratory wheezing with rhonchi. ABDOMEN: Soft, nontender, no organomegaly. EXTREMITIES: No edema. No cyanosis. NEUROLOGIC: The patient is awake and alert. Moving all four extremities. No focal deficit. LABORATORY DATA: White blood cell 3.9, hemoglobin 10.0, hematocrit 32.0 and platelets 142. Sodium 141, potassium 3.7, BUN 10, creatinine 0.8, glucose 106, alkaline phosphate 232. ASSESSMENT AND PLAN: Mr. Sam Pantoja is an 81-year-old male with leukopenia, anemia, came in with flu, exacerbation of chronic obstructive pulmonary disease, history of anxiety, sleep apnea syndrome, prostate cancer with metastasis, hypothyroidism. We admitted the patient, DuoNeb given, oxygen given. Consult called with ID and Pulmonary. We will continue the patient's Zytiga, Cepacol lozenges, albuterol, Lidoderm patch given because of the patient's shoulder pain by Stephanie Toro for gastrointestinal prophylaxis. The patient is given methylprednisolone in the ER, but the patient has history of taking prednisone 5 mg b.i.d. at home. Tamiflu started, Tylenol started, tramadol given for pain. We will follow up, repeat labs. Megan Sheth MD MTDD
--- NOTE | 2017-03-19 04:51 | CON ---
PULMONARY CONSULTATION DATE: 03/18/2017 REFERRING PHYSICIAN: Megan Sheth MD REASON FOR CONSULTATION: Cough, short of breath, found to have influenza A infection, history of sleep apnea syndrome, hypoventilation syndrome, history of . HISTORY OF PRESENT ILLNESS: This is a 81-year-old gentleman well known to me from office and hospital with multiple medical issue including chronic obstructive lung disease, hypoventilation syndrome, sleep apnea syndrome, anxiety disorder, history of metastatic prostate cancer, hypothyroid, comes into Emergency Room with shortness of breath, cough, headache, rhinitis, had influenza testing done, which is positive for influenza A infection. Also, recently had a fall with fracture of the left upper extremity, complaining about pain. No nausea or vomiting. No diarrhea. No leg pain. No leg swelling. PAST MEDICAL HISTORY: Significant for recurrent vertigo, hypothyroid, anemia, prostate cancer with metastatic disease to bone, status post fall with humerus fracture of the left upper extremity, constipation and per history of present illness. FAMILY HISTORY: No significant family history is reported. SOCIAL HISTORY: Former smoker. Denies any alcohol use. ALLERGIES: NONE KNOWN. MEDICATIONS: He is on known formulary which is Zytiga 1000 mg daily, benzocaine, Cepacol lozenges q.2 hours p.r.n., DuoNeb q.6 hours, Flonase one spray each nostril twice a day p.r.n., Pepcid 40 mg daily, also getting prednisone 5 mg twice a day, Synthroid 112 mcg daily, Tamiflu 75 mg twice a day and Ultram 50 mg b.i.d. REVIEW OF SYSTEMS: Has headache, rhinitis, cough, shortness of breath, fever, chills, nausea. No vomiting. No diarrhea. No leg pain or leg swelling. PHYSICAL EXAMINATION VITAL SIGNS: Temperature is 98, heart rate is 95, respiratory rate is 22, blood pressure 149/78 and pulse oximetry 99% on 2 L nasal cannula. HEENT: Moist mucous membrane. Crowded airway. Maxillary area, no tenderness. NECK: Supple. No JVD. LUNGS: Has a scatted rhonchi and wheezing. HEART: S1 and S2. ABDOMEN: Soft and nontender. No organomegaly. EXTREMITIES: There is edema. Has a left upper extremity tenderness. NEUROLOGICAL: Awake and alert. Follows simple commands. LABORATORY DATA: Shows hemoglobin 10.0, hematocrit 32.0, WBC 3.9 and platelet is 142. INR 1.02 and PTT 33. Sodium 141, potassium 3.7, chloride 107, bicarbonate 25, BUN 10, creatinine 0.8, glucose 106 and calcium 9.6. AST 21, ALT 27 and alk phos is 223. LDH is 630. Troponin less than 0.01. Albumin is 3.6. Urinalysis unremarkable. Influenza A is positive. Chest x-ray done today shows re-demonstration large bulla in the right upper lobe. No pneumothorax. Has a COPD. IMPRESSION AND PLAN: Chronic obstructive lung disease which could have exacerbated influenza A, sleep apnea syndrome, pulmonary hypertension, hypertension, obstructive sleep apnea syndrome, hypothyroid, hyperlipidemia, history of prostate cancer, metastatic disease, now has influenza A. Case discussed with the patient in detail. Was started on Tamiflu, agree on it. Inhaled bronchodilator, pain management, gastric prophylaxis. Encourage bilevel positive airway pressure use. Followup labs in the morning. Thank you and we will follow with you. Christy Bartlett MD
[2017-03-19] MEDS: Levothyroxine 112 MCG TAB PO SCH (05:57)
[2017-03-19] MEDS: ABIRATERONE ACETATE 500 MG PO SCH (08:53)
[2017-03-19 08:57] LABS: HEMOGLOBIN 9.6 g/dL (14.0-18.0); MEAN CELL VOLUME 94.1 fl (80.0-105.0); MEAN CORPUSCULAR HEMOGLOBIN 29.8 pg (25.0-35.0); MEAN CORPUSCULAR HGB CONC 31.7 g/dl (31.0-37.0); MEAN PLATELET VOLUME 11.6 fl (7.0-11.0); RBC 3.22 10^6/uL (3.5-6.1); RED CELL DISTRIBUTION WIDTH 14.3 % (11.5-14.5); WHITE BLOOD COUNT 3.7 10^3/ul (4.5-11.0)
[2017-03-19 09:03] LABS: BLOOD UREA NITROGEN 12 mg/dL (7-21); CALCIUM 9.3 mg/dL (8.4-10.5); GFR AFRICAN-AMERICAN > 60; GFR NON-AFRICAN AMERICAN > 60; HDL CHOLESTEROL 79 mg/dL (29-60)
[2017-03-19 09:07] LABS: IRON 41 ug/dL (45-180)
[2017-03-19 09:14] LABS: LDL CHOLESTEROL 89 mg/dL (0-129)
[2017-03-19 09:17] LABS: % IRON SATURATION 16 % (20-55); TOTAL IRON BINDING CAPACITY 253 ug/dL (261-462)
[2017-03-19] MEDS: Lidocaine 5% Patch TD SCH (10:00)
[2017-03-19] MEDS: Fluticasone Nasal 50 mcg/Spray NS PRN ×2 (10:01→22:01)
--- NOTE | 2017-03-19 17:41 | CP.PCM.PN ---
Subjective - Date & Time of Evaluation Date of Evaluation: 03/19/17 Time of Evaluation: 16:30 - Subjective Subjective: Infectious Disease Follow Up: March 19, 2017 81 yo male complaining of shortness of breath since last night. Patient complains of cough with production of yellow sputum. Extensive medical history that includes anxiety, COPD, prostate cancer, sleep apnea, and hypothyroidism. The patient has had several visits to the ER. Last hospitalization was January 2017. The patient had a positive influenza test. On Tamiflu. Appears comfortable today. Objective - Vital Signs/Intake and Output Vital Signs (last 24 hours): Temp Pulse Resp BP Pulse Ox 97 F L 66 19 143/75 100 03/19/17 12:00 03/19/17 14:00 03/19/17 12:00 03/19/17 12:00 03/19/17 06:00 Intake and Output: 03/19/17 03/19/17 06:59 18:59 Intake Total 300 Output Total 100 Balance 200 - Medications Medications: Current Medications Acetaminophen (Tylenol 325mg Tab) 650 mg PO Q6H PRN PRN Reason: Pain, Mild (1-3) Last Admin: 03/19/17 10:03 Dose: 650 mg Albuterol/Ipratropium (Duoneb 3 Mg/0.5 Mg (3 Ml) Ud) 3 ml IH [id number] PRN PRN Reason: Shortness of Breath Last Admin: 03/19/17 13:58 Dose: 3 ml Benzocaine/Menthol (Cepacol Sore Throat) 1 eli MT Q2H PRN PRN Reason: Sore Throat Last Admin: 03/18/17 22:59 Dose: 1 eli Famotidine (Pepcid) 40 mg PO HS [facility] Last Admin: 03/18/17 21:25 Dose: 40 mg Fluticasone Propionate (Flonase) 1 actuation NS BID PRN PRN Reason: Sinus symptoms Last Admin: 03/19/17 10:01 Dose: 1 spray Home Med (Home Med) 2 unit PO ACB [facility] Last Admin: 03/19/17 08:53 Dose: 2 unit Latanoprost (Xalatan Opht) 0.05 ml OU HS [facility] Last Admin: 03/18/17 21:25 Dose: 0.05 ml Levothyroxine Sodium (Synthroid) 112 mcg PO 0600 [facility] Last Admin: 03/19/17 05:57 Dose: 112 mcg Lidocaine (Lidoderm) 1 ea TD DAILY [facility] Last Admin: 03/19/17 10:00 Dose: 1 ea Oseltamivir Phosphate (Tamiflu Cap) 75 mg PO BID [facility] PRN Reason: Protocol Stop: 03/23/17 12:47 Last Admin: 03/19/17 09:59 Dose: 75 mg Prednisone (Prednisone Tab) 5 mg PO BIDWM [facility] Last Admin: 03/19/17 09:45 Dose: 5 mg Tramadol HCl (Ultram) 50 mg PO BID PRN PRN Reason: Pain, moderate (4-7) Last Admin: 03/19/17 06:04 Dose: 50 mg - Labs Labs: 03/19/17 08:38 03/19/17 08:38 PT 11.7 SECONDS (9.4-12.5) 03/18/17 09:09 INR 1.02 (0.93-1.08) 03/18/17 09:09 APTT 32.7 Seconds (25.1-36.5) 03/18/17 09:09 - Constitutional Appears: Non-toxic, No Acute Distress, Chronically Ill - Head Exam Head Exam: ATRAUMATIC, NORMOCEPHALIC - Eye Exam Eye Exam: EOMI, PERRL Pupil Exam: NORMAL ACCOMODATION, PERRL - ENT Exam ENT Exam: Mucous Membranes Moist, Normal External Ear Exam, TM's Normal Bilaterally - Neck Exam Neck Exam: Full ROM, Normal Inspection - Respiratory Exam Respiratory Exam: Decreased Breath Sounds, Rhonchi Additional comments: less rhonchi than yesterday. - Cardiovascular Exam Cardiovascular Exam: REGULAR RHYTHM, RRR, +S1, +S2 - GI/Abdominal Exam GI & Abdominal Exam: Soft, Normal Bowel Sounds. absent: Distended, Tenderness - Extremities Exam Extremities Exam: Joint Swelling, Pedal Edema Additional comments: bilateral leg edema. left upper arm ecchymosis. left arm in sling from outside the hospital. - Neurological Exam Neurological Exam: Alert, Awake, CN II-XII Intact, Oriented x3 - Psychiatric Exam Psychiatric exam: Normal Affect, Normal Mood - Skin Skin Exam: Intact, Normal Color Assessment and Plan - Assessment and Plan (Free Text) Assessment: 81 yo male with SOB and Stage IV prostate cancer. Leukopenia. Large bullae in the upper lobes. Positive for influenza. Start Tamiflu. Supportive care. Poor wood floor layer prognosis. Judging from the previous hospitalization, the patient has few options. Would hold off on antibiotic therapy and continue on Tamiflu alone for 5 days. Supportive care. Maintain oxygen levels. Appears stable at this time. Cultures negative at this time. Thank you for allowing me to participate in the care of the patient, we will follow with you.
[2017-03-19 18:00] LABS: FOLATE > 20.0 ng/mL
[2017-03-19] MEDS: Latanoprost 2.5 ml Opht Soln OU SCH (22:01)
[2017-03-20] MEDS: Albuterol-Ipratrop 3 mg / 0.5 (3 ml) UD IH PRN ×3 (00:11→16:07)
--- NOTE | 2017-03-20 00:36 | PN ---
DATE: SUBJECTIVE: The patient is examined at the bedside, looking comfortable. No nausea or vomiting. Cough is little bit better, but still coughing, heavy shortness of breath and with coughing having chest pain. Complaining about production of yellow sputum. No fever. No chills. No nausea or vomiting. No hematuria or hematochezia. PHYSICAL EXAMINATION: VITAL SIGNS: Temperature 97, pulse 66, respiratory rate 18, blood pressure 143/75, and pulse oximetry 100%. HEENT: Head; normocephalic and atraumatic. Eyes, PERRLA. Extraocular muscles are intact. Conjunctivae are clear. Nose patent. Mucous membranes moist. NECK: Supple. No carotid bruits. No JVD or thyromegaly. CHEST: Bilaterally symmetrical. HEART: S1 and S2 positive. LUNGS: Clear to auscultation. ABDOMEN: Soft. Bowel sounds positive. No organomegaly. EXTREMITIES: No edema. No cyanosis. NEUROLOGICAL: The patient is awake and alert. Moving all four extremities. No focal deficit. MEDICATIONS: Tylenol, DuoNeb, Cepacol, Pepcid, Flonase, levothyroxine, Lidoderm, Tamiflu, prednisone and tramadol. LABORATORY DATA: White blood cells 3.7, hemoglobin 9.6, hematocrit 30.3, platelets 135. Sodium 138, potassium 3.8, BUN 12, creatinine 0.8, and glucose 99. ASSESSMENT AND PLAN: Mr. Kit Vargas is a 81 years old male with leukopenia, anemia, heavy shortness of breath, has stage IV prostate cancer with metastasis, large bullae in the upper lobe positive for influenza, getting Tamiflu. Supportive care. Poor long-term prognosis. The patient had multiple ER visits. ID is on the case, holding off the antibiotic therapy and continuing Tamiflu at least for five days. We will continue oxygen. Cultures are negative at this time. I appreciate Dr. Vila's input. The patient has history of obstructive sleep apnea, chronic obstructive pulmonary disease. For prostate cancer, getting Zytiga. Pulmonary hypertension, hypothyroidism and hypercholesterolemia. Length of time discussion done with patient and nursing staff. Continue inhaled bronchodilators. Pain management. Gastric prophylaxis. Deep venous thrombosis prophylaxis. We will follow up. Megan Sheth MD
--- NOTE | 2017-03-20 01:37 | PN ---
DATE: 03/19/2017 REFERRING PHYSICIAN: Dr. hSeth. SUBJECTIVE: Sitting side of the bed having lunch, still has headache, rhinitis, cough or sputum production, tolerated BiPAP well. No nausea, no vomiting. No diarrhea. Does have trace leg swelling. PHYSICAL EXAMINATION: GENERAL: In no acute distress. VITAL SIGNS: Temperature is 98, heart rate 66, respiratory rate is 20, blood pressure 143/75, pulse ox 100% on BiPAP this morning. HEENT: Moist mucous membranes. Crowded Mallampati score is 4. NECK: Supple. No JVD. LUNGS: Scattered rhonchi and few wheezing. HEART: S1 and S2. ABDOMEN: Soft, nontender. No organomegaly. EXTREMITIES: There is not much edema. NEUROLOGIC: Awake, alert, follows simple command. MEDICATIONS: He is on CPAP lozenges q.2 h. p.r.n., DuoNeb q.6 h., Flonase once to each nostril twice a day, insulin coverage, Lidoderm patch daily, Pepcid 40 mg daily, prednisone 5 mg twice a day, Synthroid 112 mcg daily, *------* mg twice a day, Tylenol p.r.n., Ultram 50 mg twice a day p.r.n., Xalatan eyedrops 0.05 mL at bedtime. LABORATORY DATA: Review shows hemoglobin 9.6, hematocrit 30.3, WBC 3.7, platelets 135. Sodium 138, potassium 3.8, chloride 105, bicarbonate 26, BUN 12, creatinine is 0.8, glucose 99, calcium is 9.3. Iron is 41. TSH 2.20. Influenza A is positive. IMPRESSION AND PLAN: Chronic obstructive lung disease, influenza A infection, sleep apnea syndrome, pulmonary hypertension, hypertension, obstructive sleep apnea syndrome, hypothyroid, hyperlipidemia, prostate cancer which is metastatic disease. Pulmonary point view, doing okay. Continue BiPAP while sleeping. Keep head at 45 degrees. Bronchodilator, antibiotics, gastric prophylaxis. Sequential compression device to lower extremity. Thank you and we will follow with you. Christy Bartlett MD
[2017-03-20] MEDS: Benzocaine/Menthol (Cepacol) Lozenge MT PRN (02:31)
[2017-03-20] MEDS: Levothyroxine 112 MCG TAB PO SCH (05:01)
[2017-03-20] MEDS: ABIRATERONE ACETATE 500 MG PO SCH (06:47)
[2017-03-20 07:11] LABS: HEMOGLOBIN 9.7 g/dL (14.0-18.0); MEAN CELL VOLUME 94.5 fl (80.0-105.0); MEAN CORPUSCULAR HEMOGLOBIN 29.4 pg (25.0-35.0); MEAN CORPUSCULAR HGB CONC 31.1 g/dl (31.0-37.0); MEAN PLATELET VOLUME 11.9 fl (7.0-11.0); RBC 3.3 10^6/uL (3.5-6.1); RED CELL DISTRIBUTION WIDTH 14.3 % (11.5-14.5); WHITE BLOOD COUNT 4.7 10^3/ul (4.5-11.0)
[2017-03-20 07:37] LABS: BLOOD UREA NITROGEN 17 mg/dL (7-21); CALCIUM 9.2 mg/dL (8.4-10.5); GFR AFRICAN-AMERICAN > 60; GFR NON-AFRICAN AMERICAN > 60
[2017-03-20] MEDS: Lidocaine 5% Patch TD SCH (09:45)
[2017-03-20] MEDS: Fluticasone Nasal 50 mcg/Spray NS PRN ×2 (12:07→22:43)
--- NOTE | 2017-03-20 19:00 | CP.PCM.PN ---
Subjective - Date & Time of Evaluation Date of Evaluation: 03/20/17 Time of Evaluation: 17:45 - Subjective Subjective: Infectious Disease Follow Up: March 20, 2017 81 yo male complaining of shortness of breath since last night. Patient complains of cough with production of yellow sputum. Extensive medical history that includes anxiety, COPD, prostate cancer, sleep apnea, and hypothyroidism. The patient has had several visits to the ER. Last hospitalization was January 2017. The patient had a positive influenza test. On Tamiflu. Appears comfortable today. Objective - Vital Signs/Intake and Output Vital Signs (last 24 hours): Temp Pulse Resp BP Pulse Ox 98.6 F 82 16 125/72 100 03/20/17 12:00 03/20/17 14:00 03/20/17 12:00 03/20/17 12:00 03/20/17 06:00 Intake and Output: 03/20/17 03/20/17 06:59 18:59 Intake Total 780 Output Total 1200 Balance -420 - Medications Medications: Current Medications Acetaminophen (Tylenol 325mg Tab) 650 mg PO Q6H PRN PRN Reason: Pain, Mild (1-3) Last Admin: 03/19/17 22:01 Dose: 650 mg Albuterol/Ipratropium (Duoneb 3 Mg/0.5 Mg (3 Ml) Ud) 3 ml IH [id number] PRN PRN Reason: Shortness of Breath Last Admin: 03/20/17 16:07 Dose: 3 ml Benzocaine/Menthol (Cepacol Sore Throat) 1 eli MT Q2H PRN PRN Reason: Sore Throat Last Admin: 03/20/17 02:31 Dose: 1 eli Famotidine (Pepcid) 40 mg PO HS [facility] Last Admin: 03/19/17 22:01 Dose: 40 mg Ferrous Sulfate (Feosol) 324 mg PO WM [facility] Last Admin: 03/20/17 17:41 Dose: 324 mg Fluticasone Propionate (Flonase) 1 actuation NS BID PRN PRN Reason: Sinus symptoms Last Admin: 03/20/17 12:07 Dose: 1 spray Home Med (Home Med) 2 unit PO ACB [facility] Last Admin: 03/20/17 06:47 Dose: 2 unit Latanoprost (Xalatan Opht) 0.05 ml OU HS [facility] Last Admin: 03/19/17 22:01 Dose: 0.05 ml Levothyroxine Sodium (Synthroid) 112 mcg PO 0600 [facility] Last Admin: 03/20/17 05:01 Dose: 112 mcg Lidocaine (Lidoderm) 1 ea TD DAILY [facility] Last Admin: 03/20/17 09:45 Dose: 1 ea Oseltamivir Phosphate (Tamiflu Cap) 75 mg PO BID [facility] PRN Reason: Protocol Stop: 03/23/17 12:47 Last Admin: 03/20/17 17:41 Dose: 75 mg Prednisone (Prednisone Tab) 10 mg PO BIDWM [facility] Last Admin: 03/20/17 17:41 Dose: 10 mg Tramadol HCl (Ultram) 50 mg PO BID PRN PRN Reason: Pain, moderate (4-7) Last Admin: 03/20/17 16:08 Dose: 50 mg - Labs Labs: 03/20/17 06:30 03/20/17 06:30 PT 11.7 SECONDS (9.4-12.5) 03/18/17 09:09 INR 1.02 (0.93-1.08) 03/18/17 09:09 APTT 32.7 Seconds (25.1-36.5) 03/18/17 09:09 - Constitutional Appears: Non-toxic, No Acute Distress, Chronically Ill - Head Exam Head Exam: ATRAUMATIC, NORMOCEPHALIC - Eye Exam Eye Exam: EOMI, PERRL Pupil Exam: NORMAL ACCOMODATION, PERRL - ENT Exam ENT Exam: Mucous Membranes Moist, Normal External Ear Exam, TM's Normal Bilaterally - Neck Exam Neck Exam: Full ROM, Normal Inspection - Respiratory Exam Respiratory Exam: Decreased Breath Sounds, Rhonchi Additional comments: less rhonchi than yesterday. - Cardiovascular Exam Cardiovascular Exam: REGULAR RHYTHM, RRR, +S1, +S2 - GI/Abdominal Exam GI & Abdominal Exam: Soft, Normal Bowel Sounds. absent: Distended, Tenderness - Extremities Exam Extremities Exam: Joint Swelling, Pedal Edema Additional comments: bilateral leg edema. left upper arm ecchymosis. left arm in sling from outside the hospital. - Neurological Exam Neurological Exam: Alert, Awake, CN II-XII Intact, Oriented x3 - Psychiatric Exam Psychiatric exam: Normal Affect, Normal Mood - Skin Skin Exam: Intact, Normal Color Assessment and Plan - Assessment and Plan (Free Text) Assessment: 81 yo male with SOB and Stage IV prostate cancer. Leukopenia. Large bullae in the upper lobes. Positive for influenza. Start Tamiflu. Supportive care. Poor longterm prognosis. Judging from the previous hospitalization, the patient has few options. Would hold off on antibiotic therapy and continue on Tamiflu alone for 5 days. Large bullae in upper lobes of lungs present in CT scan on January 20, 2017. Supportive care. Maintain oxygen levels. Appears stable at this time. Cultures negative at this time. Thank you for allowing me to participate in the care of the patient, we will follow with you.
[2017-03-20] MEDS: Latanoprost 2.5 ml Opht Soln OU SCH (22:43)
--- NOTE | 2017-03-20 23:11 | PN ---
DATE: 03/20/2017 PULMONARY PROGRESS NOTE REFERRING PHYSICIAN: Dr. Sheth. SUBJECTIVE: Sitting side of the bed, having dinner, night was unremarkable. Headache, chill, and fever decreased. Still have some cough and sputum production, No nausea, no vomiting, diarrhea, leg pain or leg swelling. PHYSICAL EXAMINATION: GENERAL: In no acute distress. VITAL SIGNS: Temperature is 98, heart rate 82, respiratory rate is 16, blood pressure 125/72, pulse ox 100% on nasal cannula. HEENT: Moist mucous membranes. Crowded airway. NECK: Supple. No JVD. LUNGS: Has scattered rhonchi with few crackles. HEART: S1 and S2. ABDOMEN: Soft, nontender. No organomegaly. EXTREMITIES: Not much edema. NEUROLOGIC: Awake, alert, follows simple command. MEDICATIONS: Reviewed. Cepacol lozenges q. 2 hours p.r.n., DuoNeb q. 6 hours p.r.n., ferrous sulfate 325 mg with meals, fluticasone one spray twice a day p.r.n., lidocaine at affected area daily, Pepcid 40 mg at bedtime, prednisone 10 mg with a meal, Synthroid 112 mcg daily, Tamiflu 75 mg twice a day, Tylenol p.r.n., Ultram 50 mg twice a day p.r.n. LABORATORY DATA: Shows hemoglobin 9.7, hematocrit 31.2, WBC 4.7, platelets is 143. Sodium 139, potassium 4.1, chloride 104, bicarbonate 28, BUN 17, creatinine is 0.8, glucose 94, calcium is 9.2. Influenza A is positive. Microbiology: Blood culture and urine culture, there is no growth. IMPRESSION AND PLAN: Chronic obstructive lung disease, influenza A infection, sleep apnea syndrome, pulmonary hypertension, obstructive sleep apnea syndrome, hypothyroid, hyperlipidemia, prostate cancer with metastatic disease. Pulmonary point view, doing okay. Continue antibiotics p.o. and inhaled bronchodilator, encourage CPAP use, gastric prophylaxis, deep venous thrombosis prophylaxis. Thank you and we will follow with you. Christy Bartlett MD
--- NOTE | 2017-03-20 23:16 | PN ---
DATE: The patient is 81-year-old male. SUBJECTIVE: The patient seen and examined on the bedside, lying uncomfortably. Still having coughing, shortness of breath, chest pain, runny nausea, headache, body aches. Tolerating BiPAP very well. No diarrhea. No nausea or vomiting. No hematuria. No hematochezia. Still complaining about pain in the left upper extremity. PHYSICAL EXAMINATION: VITAL SIGNS: Temperature 98.1, heart rate 66, respiratory rate 20, blood pressure 143/75 and pulse oximetry 100% on BiPAP this morning. HEENT: Head; normocephalic and atraumatic. Eyes: PERRLA. Extraocular muscles intact. Conjunctivae clear. Nose is patent. Mucous membranes are moist. NECK: Supple. No carotid bruits. No JVD or thyromegaly. CHEST: Bilaterally symmetrical. HEART: S1 and S2 positive. LUNGS: Clear to auscultation. ABDOMEN: Soft. Positive bowel sounds. No organomegaly. EXTREMITIES: No edema. No cyanosis. NEUROLOGIC: The patient is awake and alert. Moving all 4 extremities. No focal deficit. MEDICATIONS: The patient is on Flonase, lozenges, Lidoderm, Pepcid, prednisone, Synthroid, Tylenol and tramadol. LABORATORY DATA: Hemoglobin 9.6, hematocrit 33.3, white blood cell 3.7 and platelets 135. Sodium 138, potassium 3.8, BUN 12 and creatinine 0.8. TSH 2.20. ASSESSMENT AND PLAN: Mr. Sam Pantoja is an 81-year-old male came with flu, has history of chronic obstructive lung disease, sleep apnea syndrome, pulmonary hypertension, hypothyroidism, hypercholesterolemia, prostate cancer with metastases, feeling fatigue and tired, upper respiratory tract infection, bronchodilators, gastric and deep venous thrombosis prophylaxis. Repeat labs. We will follow up. Megan Sheth MD
[2017-03-21] MEDS: Benzocaine/Menthol (Cepacol) Lozenge MT PRN (00:40)
[2017-03-21] MEDS: Albuterol-Ipratrop 3 mg / 0.5 (3 ml) UD IH PRN ×2 (01:59→07:39)
[2017-03-21 04:35] VITALS: RESP 20; TEMP 98.3; O2SAT 99
[2017-03-21] MEDS: Levothyroxine 112 MCG TAB PO SCH (05:57)
[2017-03-21] MEDS: ABIRATERONE ACETATE 500 MG PO SCH (06:41)
[2017-03-21 07:11] VITALS: BP 161/89
[2017-03-21] MEDS: Fluticasone Nasal 50 mcg/Spray NS PRN (09:23)
[2017-03-21] MEDS: Lidocaine 5% Patch TD SCH (09:24)
[2017-03-21 16:14] VITALS: PULSE 82
--- NOTE | 2017-03-21 18:28 | CP.PCM.PN ---
Subjective - Date & Time of Evaluation Date of Evaluation: 03/21/17 Time of Evaluation: 14:00 - Subjective Subjective: Infectious Disease Follow Up: March 21, 2017 81 yo male complaining of shortness of breath since last night. Patient complains of cough with production of yellow sputum. Extensive medical history that includes anxiety, COPD, prostate cancer, sleep apnea, and hypothyroidism. The patient has had several visits to the ER. Last hospitalization was January 2017. The patient had a positive influenza test. On Tamiflu. Appears comfortable today. Lives with family. He has no complaints. Objective - Vital Signs/Intake and Output Vital Signs (last 24 hours): Temp Pulse Resp BP Pulse Ox 98.3 F 82 20 161/89 H 99 03/21/17 06:00 03/21/17 10:00 03/21/17 06:00 03/21/17 06:00 03/21/17 06:00 Intake and Output: 03/21/17 03/21/17 06:59 18:59 Output Total 1150 Balance -1150 - Labs Labs: 03/20/17 06:30 03/20/17 06:30 PT 11.7 SECONDS (9.4-12.5) 03/18/17 09:09 INR 1.02 (0.93-1.08) 03/18/17 09:09 APTT 32.7 Seconds (25.1-36.5) 03/18/17 09:09 - Constitutional Appears: Non-toxic, No Acute Distress, Chronically Ill - Head Exam Head Exam: ATRAUMATIC, NORMOCEPHALIC - Eye Exam Eye Exam: EOMI, PERRL Pupil Exam: NORMAL ACCOMODATION, PERRL - ENT Exam ENT Exam: Mucous Membranes Moist, Normal External Ear Exam, TM's Normal Bilaterally - Neck Exam Neck Exam: Full ROM, Normal Inspection - Respiratory Exam Respiratory Exam: Decreased Breath Sounds, NORMAL BREATHING PATTERN. absent: Rales, Rhonchi, Wheezes - Cardiovascular Exam Cardiovascular Exam: REGULAR RHYTHM, RRR, +S1, +S2 - GI/Abdominal Exam GI & Abdominal Exam: Soft, Normal Bowel Sounds. absent: Distended, Tenderness - Extremities Exam Extremities Exam: Joint Swelling, Pedal Edema Additional comments: bilateral leg edema. left upper arm ecchymosis. left arm in sling from outside the hospital. - Neurological Exam Neurological Exam: Alert, Awake, CN II-XII Intact, Oriented x3 - Psychiatric Exam Psychiatric exam: Normal Affect, Normal Mood - Skin Skin Exam: Intact, Normal Color Assessment and Plan - Assessment and Plan (Free Text) Assessment: 81 yo male with SOB and Stage IV prostate cancer. Leukopenia. Large bullae in the upper lobes. Positive for influenza. Start Tamiflu. Supportive care. Poor senior living prognosis. Judging from the previous hospitalization, the patient has few options. Would hold off on antibiotic therapy and continue on Tamiflu alone for 5 days. Large bullae in upper lobes of lungs present in CT scan on January 20, 2017. Supportive care. Maintain oxygen levels. Appears stable at this time. Cultures negative at this time. For discharge today. Patient with no complaints. Complete Tamiflu dosing at home if discharged. Thank you for allowing me to participate in the care of the patient, we will follow with you.
== END 2017-03-21 15:32 | disposition home or self-care (01) | DRG 191 ==
LOC: ED 08:35 → ERH 10:04 → 3RSO 11:27
PROVIDERS: ADMIT Internal Medicine; ATTEND Internal Medicine
PROC: 3E0F7GC Introduction of Other Therapeutic Substance into Respiratory Tract, Via Natural or Artificial Opening (ICD-10-PCS; 2017-03-18)
PROC: 5A09457 Assistance with Respiratory Ventilation, 24-96 Consecutive Hours, Continuous Positive Airway Pressure (ICD-10-PCS; principal; 2017-03-19)
DX: J44.1 Chronic obstructive pulmonary disease with (acute) exacerbation (principal); J10.1 Influenza due to other identified influenza virus with other respiratory manifestations; C79.51 Secondary malignant neoplasm of bone; I27.20 Pulmonary hypertension, unspecified; D64.9 Anemia, unspecified; C61 Malignant neoplasm of prostate; D72.819 Decreased white blood cell count, unspecified; E03.9 Hypothyroidism, unspecified; E78.5 Hyperlipidemia, unspecified; F41.9 Anxiety disorder, unspecified; I10 Essential (primary) hypertension; G47.33 Obstructive sleep apnea (adult) (pediatric); K21.9 Gastro-esophageal reflux disease without esophagitis; E78.00 Pure hypercholesterolemia, unspecified; J31.0 Chronic rhinitis; H40.9 Unspecified glaucoma; Z92.21 Personal history of antineoplastic chemotherapy; Z92.3 Personal history of irradiation; Z87.891 Personal history of nicotine dependence

== ENCOUNTER 2017-05-23 19:51 | Inpatient (IN) | payer MEDICARE, OTHER ==
[2017-05-23 19:51] VITALS: BMI 31.1
--- NOTE | 2017-05-23 20:37 | ED PDOC ---
Arrival/HPI - General Chief Complaint: Cough, Cold, Congestion Time Seen by Provider: 05/23/17 20:30 Historian: Patient - History of Present Illness Narrative History of Present Illness (Text): 05/23/17 20:36 pt p/w + few days onset of worsening sob/congestion sensation; pt states over the last 24hours, sob worsened; + exertional sob; + used at home nebulizer and CPAP machine and his sob is not improving; pt states also noted a few days of intermittent substernal chest pressure/pain; non-radiating, no fever/chills/ sweats, no palpitations, no abd pain, no n/v, no numbness/tingling, no urinary/ bowel changes, no fall/trauma/sick contact, no travel director denied LOC pt denied leg swelling pt state no other complaints pt is here for further eval. PCP: DR Domenic Pat: Dr Bartlett Time/Duration: < week (2-3 days) Symptom Onset: Sudden Symptom Course: Worsening Quality: Tightness Severity Level: Mild Activities at Onset: Rest Context: Exertion, Home Past Medical History - Provider Review Nursing Documentation Reviewed: Yes - Travel History Have you recently traveled outside [place] w/in the past 3 mons?: No - Infectious Disease Hx of Infectious Diseases: None - Tetanus Immunization Tetanus Immunization: Unknown - Cardiac Hx Cardiac Disorders: Yes Hx Hypertension: Yes - Pulmonary Hx Respiratory Disorders: Yes Hx Chronic Obstructive Pulmonary Disease (COPD): Yes - Neurological Hx Neurological Disorder: Yes Hx Dizziness: Yes (VERTIGO) - HEENT Hx HEENT Disorder: Yes (eyeglasses) Hx Cataracts: Yes (b/l sx) Hx Glaucoma: Yes (b/l takes eye drops) - Renal Hx Renal Disorder: No - Endocrine/Metabolic Hx Endocrine Disorders: Yes Hx Diabetes Mellitus Type 2: (denies) Hx Hypothyroidism: Yes - Hematological/Oncological Hx Blood Disorders: Yes Hx Anemia: Yes Hx Cancer: Yes (PROSTATE-takes Zytiga) Other/Comment: pt first dx 2000 with prostate ca tx with hormone injections, then in 2003 dx again had 9 weeks of radiation 5 days a week and homone injections zoladex both times was maintained on zoladex for 12 yrs, then dx 2016 now takes zytiga hormone based chemo in pill form daily (FROM PAST TRIAGE) - Integumentary Hx Dermatological Disorder: Yes Other/Comment: ble dry skin - Musculoskeletal/Rheumatological Hx Musculoskeletal Disorders: Yes Hx Falls: Yes (09/2016) Hx Fractures: Yes (Feb 2017, humerus fx) - Gastrointestinal Hx Gastrointestinal Disorders: Yes (CONSTIPATION) - Genitourinary/Gynecological Hx Genitourinary Disorders: Yes (self-catheterization at times) Hx Prostate Problems: Yes (PROSTATE CA) Other/Comment: cystoscopy, after radiation treatments in 2003 pt had 2wf x 3 months and sometimes has to self catherize himself - Psychiatric Hx Psychophysiologic Disorder: No Hx Substance Use: No - Anesthesia Hx Anesthesia: Yes Hx Anesthesia Reactions: No Hx Malignant Hyperthermia: No Family/Social History - Physician Review Nursing Documentation Reviewed: Yes Family/Social History: No Known Family HX Smoking Status: Former Smoker Hx Alcohol Use: Yes Frequency of alcohol use: Socially Hx Substance Use: No Hx Substance Use Treatment: No Allergies/Home Meds Allergies/Adverse Reactions: Allergies No Known Allergies Allergy (Verified 03/18/17 08:41) Home Medications: Home Meds Medication Instructions Recorded Confirmed Abiraterone Acetate [Zytiga] 1,000 mg PO DAILY 03/18/17 03/18/17 Budesonide/Formoterol Fumarate 2 puff IH BID 03/18/17 03/18/17 [Symbicort 160-4.5 Mcg Inhaler] Fluticasone Nasal [Flonase] 2 spr NS BID PRN 03/18/17 03/18/17 Latanoprost 0.005% Opht [Xalatan 1 drp OU HS 03/18/17 03/18/17 Opht] Levothyroxine [Synthroid] 112 mcg PO DAILY 03/18/17 03/18/17 Prednisone [Harsh] 5 mg PO BID 03/18/17 03/18/17 Review of Systems - Review of Systems Constitutional: Fatigue Eyes: Normal ENT: Normal Respiratory: SOB, Wheezing. absent: Cough, Sputum Cardiovascular: Chest Pain Gastrointestinal: Normal Genitourinary Male: Normal Musculoskeletal: Normal Skin: Normal Neurological: Normal Endocrine: Normal Hemo/Lymphatic: Normal Psychiatric: Normal Physical Exam Vital Signs Reviewed: Yes Vital Signs Temp Pulse Resp BP Pulse Ox 05/23/17 21:04 166/97 H 05/23/17 20:03 98.3 F 79 19 167/78 H 99 Temperature: Afebrile Blood Pressure: Hypertensive Pulse: Regular Respiratory Rate: Normal Appearance: Positive for: Well-Appearing, Uncomfortable, Other (resting in bed, alert/awake, GCS = 15, oriented x 3, mild distress due to resp difficulties, uncomfortable) Pain Distress: None Mental Status: Positive for: Alert and Oriented X 3 - Systems Exam Head: Present: Atraumatic, Normocephalic, Other (mild bi-temporal wasting) Pupils: Present: PERRL, Other (no nystagmus, no photophobia, sclera anicteric) Extroacular Muscles: Present: EOMI Conjunctiva: Present: Normal Ears: Present: Normal Mouth: Present: Moist Mucous Membranes, Other (poor dentitions, no drooling/ stridor) Pharnyx: Present: Normal Nose (External): Present: Atraumatic Nose (Internal): Present: Normal Inspection Neck: Present: Normal Range of Motion, JVD, Trachea Midline. No: MIDLINE TENDERNESS Respiratory/Chest: Present: Respiratory Distress (mild), Wheezes, Decreased Breath Sounds, Other (mild tachypenia, no rales/rhonchi, basiliar wheezing with faint breath sounds noted b/l; no accessory muscle use noted). No: Accessory Muscle Use Cardiovascular: Present: Regular Rate and Rhythm, Normal S1, S2. No: Murmurs Abdomen: Present: Normal Bowel Sounds, Other (well nourished male, no focal tenderness, no masses/rebound/guarding/rigidity, no mendoza's sign, no mcburney' s point tenderness) Back: Present: Normal Inspection. No: CVA Tenderness, Midline Tenderness Upper Extremity: Present: Normal Inspection, Normal ROM, NORMAL PULSES, Neurovascularly Intact, Capillary Refill < 2s Lower Extremity: Present: Normal Inspection, NORMAL PULSES, Normal ROM, Neurovascularly Intact, Capillary Refill < 2 s. No: Dany's Sign Neurological: Present: GCS=15, CN II-XII Intact, Speech Normal Skin: Present: Warm, Dry, Normal Color, Other (cap refill < 1s, no ulcerations, no petechiae) Psychiatric: Present: Alert, Oriented x 3 Medical Decision Making ED Course and Treatment: 05/23/172035 Impression: sob/congestion i have consider all the differential diagnosis regarding pt's chief medical complaints/clinical findings, including but are not limited to: sob/congestion A/P: sob/congestion; chest pain, r/o acs - labs - iv - xray - acs eval - observe - supportive care 0 due to pt's concerning CP with sob (likely due to acute COPD exacerbation), will recommend patient for admission I spoke to Dr Haines, made aware, agrees with admission; would like to consult Dr bartlett in the morning 05/23/17 23:29 after neb treatment in the ED, pt felt some improvement pt is now eating his meal without any distress pt is appearing comfortable pt is made aware of his medical results agrees with admission Re-evaluation Time: 22:55 Reassessment Condition: Improving,but remains with symptoms - Lab Interpretations Lab Results: 05/23/17 21:20 05/23/17 21:20 Lab Results 05/23/17 21:20: Sodium 142, Chloride 104, Potassium 4.0, Carbon Dioxide 30, Anion Gap 11, BUN 17, Creatinine 1.0, Est GFR ( Amer) > 60, Est GFR (Non- Af Amer) > 60, Random Glucose 119 H, Calcium 10.1, Total Bilirubin 0.4, AST 22, ALT 22, Alkaline Phosphatase 329 H D, Lactate Dehydrogenase 581, Total Creatine Kinase 114, Troponin I < 0.01, NT-Pro-B Natriuret Pep 165, Total Protein 7.5, Albumin 4.1, Globulin 3.4, Albumin/Globulin Ratio 1.2 05/23/17 21:20: pO2 23 L, VBG pH 7.38, VBG pCO2 49.0, VBG HCO3 29.0 H, VBG Total CO2 30.5 H, VBG O2 Sat (Calc) 44.8, VBG Base Excess 3.0 H, VBG Potassium 3.9, Sodium 143.0, Chloride 106.0, Glucose 124 H, Lactate 1.4, FiO2 21.0, Venous Blood Potassium 3.9 05/23/17 21:20: WBC 8.0 D, RBC 3.99, Hgb 11.8 L D, Hct 36.7 L, MCV 92.0, MCH 29.6, MCHC 32.2, RDW 14.1, Plt Count 178, MPV 11.9 H, Gran % 62.1, Lymph % (Auto ) 30.3, [place] % (Auto) 7.0 H, Eos % (Auto) 0.3 L, Baso % (Auto) 0.3, Gran # 4.96 , Lymph # (Auto) 2.4, [place] # (Auto) 0.6, Eos # (Auto) 0.0, Baso # (Auto) 0.02 I have reviewed the lab results: Yes Interpretation: All labs normal - RAD Interpretation Narrative RAD Interpretations (Text): 05/23/17 22:55 right lower lobe atelectasis left pulm bleb mild hyperinflated lung renae Radiology Orders: 05/23/17 20:31 CHEST TWO VIEWS (PA/LAT) [RAD] Stat Hospitality Services Manager: ED Physician - EKG Interpretation Interpreted by ED Physician: Yes Type: 12 lead EKG - Medication Orders Current Medication Orders: Discontinued Medications Albuterol/Ipratropium (Duoneb 3 Mg/0.5 Mg (3 Ml) Ud) 3 ml IH Q15M KRYS Stop: 05/23/17 21:16 Last Admin: 05/23/17 21:04 Dose: 3 ml Aspirin (Aspirin) 325 mg PO STAT STA Stop: 05/23/17 20:38 Last Admin: 05/23/17 21:04 Dose: 325 mg Furosemide (Lasix) 40 mg IVP STAT STA Stop: 05/23/17 20:36 Last Admin: 05/23/17 21:04 Dose: 40 mg MAR Blood Pressure Document 05/23/17 21:04 JOL (Rec: 05/23/17 21:04 [id number]) Blood Pressure Blood Pressure (100/60-150/90) 166/97 IVP Administration Document 05/23/17 21:04 JOL (Rec: 05/23/17 21:04 [id number]) Charges for Administration # of IVP Administrations 1 Methylprednisolone (Solu-Medrol) 125 mg IVP STAT STA Stop: 05/23/17 20:37 Last Admin: 05/23/17 21:04 Dose: 125 mg IVP Administration Document 05/23/17 21:04 JOL (Rec: 05/23/17 21:04 [id number]) Charges for Administration # of IVP Administrations 1 Disposition/Present on Arrival - Present on Arrival Any Indicators Present on Arrival: No History of DVT/PE: No History of Uncontrolled Diabetes: No Urinary Catheter: No History of Decub. Ulcer: No History Surgical Site Infection Following: None - Disposition Have Diagnosis and Disposition been Completed?: Yes Diagnosis: COPD with acute exacerbation, Chest pain with low risk of acute coronary syndrome Disposition: HOSPITALIZED Disposition Time: 22:22 Patient Plan: Admission, Telemetry Patient Problems: Current Active Problems Problem Status Onset COPD with acute exacerbation Acute Chest pain with low risk of acute coronary syndrome Acute Condition: STABLE
[2017-05-23] MEDS: Albuterol-Ipratrop 3 mg / 0.5 (3 ml) UD IH SCH ×3 (21:04→21:40)
[2017-05-23 21:36] LABS: BASO # 0.02 K/mm3 (0.0-2.0); BASO % 0.3 % (0.0-3.0); EOS % 0.3 % (1.5-5.0); GRAN # 4.96 (1.4-6.5); GRAN % 62.1 % (50.0-68.0); HEMOGLOBIN 11.8 g/dL (14.0-18.0); LYMPH # 2.4 (1.2-3.4); LYMPH % 30.3 % (22.0-35.0); MEAN CORPUSCULAR HEMOGLOBIN 29.6 pg (25.0-35.0); MEAN CORPUSCULAR HGB CONC 32.2 g/dl (31.0-37.0); MEAN PLATELET VOLUME 11.9 fl (7.0-11.0); MONO # 0.6 (0.1-0.6); RBC 3.99 10^6/uL (3.5-6.1); RED CELL DISTRIBUTION WIDTH 14.1 % (11.5-14.5)
[2017-05-23 21:41] LABS: ALB/GLOB RATIO 1.2 (1.1-1.8); ALBUMIN 4.1 g/dL (3.0-4.8); ALT/SGPT 22 U/L (7-56); AST/SGOT 22 U/L (17-59); BLOOD UREA NITROGEN 17 mg/dL (7-21); CALCIUM 10.1 mg/dL (8.4-10.5); GFR AFRICAN-AMERICAN > 60; GFR NON-AFRICAN AMERICAN > 60
[2017-05-23 21:43] LABS: VENOUS BLOOD GAS PO2 23 mm/Hg (30-55); VENOUS BLOOD PH 7.38 (7.32-7.43)
[2017-05-23 21:53] LABS: B-TYPE NATRIURETIC PEPTIDE 165 pg/mL (0-450); TROPONIN I < 0.01 ng/mL
[2017-05-24] MEDS: Albuterol-Ipratrop 3 mg / 0.5 (3 ml) UD IH SCH ×3 (02:10→14:14)
[2017-05-24] MEDS: Levothyroxine 112 MCG TAB PO SCH (06:40)
[2017-05-24 06:49] LABS: BLOOD UREA NITROGEN 18 mg/dL (7-21); CALCIUM 10.3 mg/dL (8.4-10.5); GFR AFRICAN-AMERICAN > 60; GFR NON-AFRICAN AMERICAN > 60; IRON 39 ug/dL (45-180)
[2017-05-24 06:59] LABS: HEMOGLOBIN 11.6 g/dL (14.0-18.0); MEAN CELL VOLUME 91.3 fl (80.0-105.0); MEAN CORPUSCULAR HGB CONC 31.8 g/dl (31.0-37.0); MEAN PLATELET VOLUME 12.2 fl (7.0-11.0); WHITE BLOOD COUNT 6.9 10^3/ul (4.5-11.0)
[2017-05-24 07:00] LABS: % IRON SATURATION 14 % (20-55); LDL CHOLESTEROL 109 mg/dL (0-129); TOTAL IRON BINDING CAPACITY 276 ug/dL (261-462)
[2017-05-24 07:03] LABS: HDL CHOLESTEROL 126 mg/dL (29-60)
--- NOTE | 2017-05-24 08:11 | RAD ---
HISTORY: sob COMPARISON: Portable chest 03/18/2017. TECHNIQUE: Chest PA and lateral FINDINGS: LUNGS: COPD changes are reiterated including gross bullous changes at the superior right lung zone which are mild once again in the medial left apex. Fibrotic changes again seen at the mid right lung zone laterally as well as the medial right base. PLEURA: No significant pleural effusion identified. No pneumothorax apparent. CARDIOVASCULAR: Normal. OSSEOUS STRUCTURES: No significant abnormalities. VISUALIZED UPPER ABDOMEN: Normal. OTHER FINDINGS: None. IMPRESSION: COPD changes again appreciated with gross bullous changes in the right apex again evident, mild at the medial left apex.
[2017-05-24] MEDS: Insulin Reg-LOW-Coverage SC SCH ×4 (08:54→22:28)
[2017-05-24] MEDS ORDERED: Non Formulary Medication (Budesonide/Formoterol Fumarate [Symbicort 160-4.5 Mcg Inhaler] 2 IH SCH (10:00)
[2017-05-24] MEDS: ABIRATERONE ACETATE 500 MG PO SCH (11:03)
[2017-05-24 14:13] LABS: FOLATE > 20.0 ng/mL
[2017-05-24] MEDS ORDERED: Budesonide 0.5 mg/2 ml Inhal Susp UD IH ONE (15:30)
[2017-05-24] MEDS ORDERED: Arformoterol 15 mcg/2 ml Inh Sol IH ONE (15:30)
--- NOTE | 2017-05-24 16:40 | CP.PCM.HP ---
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 [place] [facility] [place]. Admitted in 05/23/17 for COPD with acute exacerbation and chest pain with low risk of ACS. Today, pt seen at bedside c/o dry mucous membranes. No distress noted. Denies any headache, fever, chills, nausea, vomiting, chest pain, shortness of breath, or urinary symptoms. Present on Admission - Present on Admission Any Indicators Present on Admission: No History of DVT/PE: No History of Uncontrolled Diabetes: Yes Urinary Catheter: No Decubitus Ulcer Present: No Review of Systems - Constitutional Constitutional: As Per HPI - EENT Eyes: As Per HPI - Cardiovascular Cardiovascular: As Per HPI - Respiratory Respiratory: As Per HPI - Gastrointestinal Gastrointestinal: As Per HPI - Genitourinary Genitourinary: As Per HPI - Reproductive: Male Reproductive:Male: As Per HPI - Musculoskeletal Musculoskeletal: As Per HPI - Integumentary Integumentary: As Per HPI - Neurological Neurological: As Per HPI - Psychiatric Psychiatric: As Per HPI - Endocrine Endocrine: As Per HPI - Hematologic/Lymphatic Hematologic: As Per HPI Past Patient History - Infectious Disease Hx of Infectious Diseases: None - Tetanus Immunizations Tetanus Immunization: Unknown - Past Social History Smoking Status: Former Smoker - CARDIAC Hx Cardiac Disorders: Yes Hx Hypertension: Yes - PULMONARY Hx Respiratory Disorders: Yes Hx Asthma: Yes Hx Chronic Obstructive Pulmonary Disease (COPD): Yes Hx Pneumonia: Yes (1994) Hx Sleep Apnea: Yes (uses BIPap at night) - NEUROLOGICAL Hx Neurological Disorder: Yes Hx Dizziness: Yes (VERTIGO) - HEENT Hx HEENT Problems: Yes (eyeglasses) Hx Cataracts: Yes (b/l sx) Hx Glaucoma: Yes (b/l takes eye drops) - RENAL Hx Chronic Kidney Disease: No - ENDOCRINE/METABOLIC Hx Endocrine Disorders: Yes Hx Diabetes Mellitus Type 2: (patient denies) Hx Hypothyroidism: Yes - HEMATOLOGICAL/ONCOLOGICAL Hx Blood Disorders: Yes Hx Anemia: Yes Hx Cancer: Yes (PROSTATE-takes Zytiga) Other/Comment: pt first dx 2000 with prostate ca tx with hormone injections, then in 2003 dx again had 9 weeks of radiation 5 days a week and homone injections zoladex both times was maintained on zoladex for 12 yrs, then dx 2016 now takes zytiga hormone based chemo in pill form daily (FROM PAST TRIAGE) - INTEGUMENTARY Hx Dermatological Problems: Yes Other/Comment: ble dry skin - MUSCULOSKELETAL/RHEUMATOLOGICAL Hx Musculoskeletal Disorders: Yes Hx Arthritis: Yes Hx Falls: Yes (03/06/2017) Hx Fractures: Yes (Feb 2017, humerus fx) Hx Unsteady Gait: Yes (R/T Virtigo) - GASTROINTESTINAL Hx Gastrointestinal Disorders: Yes (Constipation takes Colace daily) - GENITOURINARY/GYNECOLOGICAL Hx Genitourinary Disorders: Yes (self-catheterization at times) Hx Prostate Problems: Yes (PROSTATE CA) Other/Comment: cystoscopy, after radiation treatments in 2003 pt had 2wf x 3 months and sometimes has to self catherize himself 3-4 times a week - PSYCHIATRIC Hx Psychophysiologic Disorder: No - SURGICAL HISTORY Hx Surgeries: Yes (Cystoscopy) - ANESTHESIA Hx Anesthesia: Yes Hx Anesthesia Reactions: No Hx Malignant Hyperthermia: No Meds Allergies/Adverse Reactions: Allergies Allergy/AdvReac Type Severity Reaction Status Date / Time No Known Allergies Allergy Verified 03/18/17 08:41 Physical Exam - Constitutional Appears: No Acute Distress - Head Exam Head Exam: ATRAUMATIC, NORMAL INSPECTION, NORMOCEPHALIC - Eye Exam Eye Exam: EOMI, Normal appearance, PERRL Pupil Exam: NORMAL ACCOMODATION, PERRL - ENT Exam ENT Exam: Mucous Membranes Moist, Normal Exam - Neck Exam Neck exam: Positive for: Normal Inspection - Respiratory Exam Respiratory Exam: Clear to Auscultation Bilateral, NORMAL BREATHING PATTERN Additional comments: nasal cannula in place. - Cardiovascular Exam Cardiovascular Exam: REGULAR RHYTHM, +S1, +S2 - GI/Abdominal Exam GI & Abdominal Exam: Normal Bowel Sounds, Soft - Extremities Exam Extremities exam: Positive for: normal inspection - Back Exam Back exam: NORMAL INSPECTION - Neurological Exam Neurological exam: Alert, CN II-XII Intact, Normal Gait, Oriented x3, Reflexes Normal - Psychiatric Exam Psychiatric exam: Normal Affect, Normal Mood - Skin Skin Exam: Dry, Intact, Normal Color, Warm Results - Vital Signs Recent Vital Signs: Last Vital Signs Temp 97.5 F L 05/24/17 08:15 Pulse 65 05/24/17 10:00 Resp 18 05/24/17 08:15 BP 162/88 H 05/24/17 08:15 Pulse Ox 99 05/24/17 08:15 - Labs Result Diagrams: 05/24/17 06:00 05/24/17 06:00 Labs: Laboratory Results - last 24 hr 05/24/17 05/24/17 05/24/17 06:00 06:00 06:00 WBC RBC Hgb Hct MCV MCH MCHC RDW Plt Count MPV Sodium 140 Potassium 4.3 Chloride 104 Carbon Dioxide 27 Anion Gap 14 BUN 18 Creatinine 0.9 Est GFR ( Amer) > 60 Est GFR (Non-Af Amer) > 60 POC Glucose (mg/dL) Random Glucose 188 H Hemoglobin A1c 6.9 H Calcium 10.3 Iron 39 L TIBC 276 % Saturation 14 L Triglycerides 48 Cholesterol 258 H LDL Cholesterol Direct 109 HDL Cholesterol 126 H Vitamin B12 457 Folate > 20.0 TSH 3rd Generation 05/24/17 05/24/17 05/24/17 06:00 06:00 08:07 WBC 6.9 RBC 4.00 Hgb 11.6 L Hct 36.5 L MCV 91.3 MCH 29.0 MCHC 31.8 RDW 14.0 Plt Count 168 MPV 12.2 H Sodium Potassium Chloride Carbon Dioxide Anion Gap BUN Creatinine Est GFR ( Amer) Est GFR (Non-Af Amer) POC Glucose (mg/dL) 131 H Random Glucose Hemoglobin A1c Calcium Iron TIBC % Saturation Triglycerides Cholesterol LDL Cholesterol Direct HDL Cholesterol Vitamin B12 Folate TSH 3rd Generation 1.07 05/24/17 11:24 WBC RBC Hgb Hct MCV MCH MCHC RDW Plt Count MPV Sodium Potassium Chloride Carbon Dioxide Anion Gap BUN Creatinine Est GFR ( Amer) Est GFR (Non-Af Amer) POC Glucose (mg/dL) 150 H Random Glucose Hemoglobin A1c Calcium Iron TIBC % Saturation Triglycerides Cholesterol LDL Cholesterol Direct HDL Cholesterol Vitamin B12 Folate TSH 3rd Generation Assessment & Plan (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 IV solumedryl. PO doxycyline. s/p IV lasix. VTE/GI prophlyaxis. PT/ OT onboard. CPAP q HS. Consults: Pulmo - Dr. Bartlett Reviewed: CXR = COPD changes again appreciated w/ gross bullous changes in R apex again evident mild at the medial L apex - Date & Time Date: 05/24/17 Time: 11:30 <Megan Sheth - Last Filed: 05/24/17 23:02> Results - Vital Signs Recent Vital Signs: Last Vital Signs Temp 98 F 05/24/17 16:00 Pulse 72 05/24/17 16:00 Resp 20 05/24/17 16:00 BP 146/91 H 05/24/17 16:00 Pulse Ox 100 05/24/17 16:00 - Labs Result Diagrams: 05/24/17 06:00 05/24/17 06:00 Labs: Laboratory Results - last 24 hr 05/24/17 05/24/17 05/24/17 06:00 06:00 06:00 WBC RBC Hgb Hct MCV MCH MCHC RDW Plt Count MPV Sodium 140 Potassium 4.3 Chloride 104 Carbon Dioxide 27 Anion Gap 14 BUN 18 Creatinine 0.9 Est GFR ( Amer) > 60 Est GFR (Non-Af Amer) > 60 POC Glucose (mg/dL) Random Glucose 188 H Hemoglobin A1c 6.9 H Calcium 10.3 Iron 39 L TIBC 276 % Saturation 14 L Triglycerides 48 Cholesterol 258 H LDL Cholesterol Direct 109 HDL Cholesterol 126 H Vitamin B12 457 Folate > 20.0 TSH 3rd Generation 05/24/17 05/24/17 05/24/17 06:00 06:00 08:07 WBC 6.9 RBC 4.00 Hgb 11.6 L Hct 36.5 L MCV 91.3 MCH 29.0 MCHC 31.8 RDW 14.0 Plt Count 168 MPV 12.2 H Sodium Potassium Chloride Carbon Dioxide Anion Gap BUN Creatinine Est GFR ( Amer) Est GFR (Non-Af Amer) POC Glucose (mg/dL) 131 H Random Glucose Hemoglobin A1c Calcium Iron TIBC % Saturation Triglycerides Cholesterol LDL Cholesterol Direct HDL Cholesterol Vitamin B12 Folate TSH 3rd Generation 1.07 05/24/17 05/24/17 05/24/17 11:24 16:37 21:58 WBC RBC Hgb Hct MCV MCH MCHC RDW Plt Count MPV Sodium Potassium Chloride Carbon Dioxide Anion Gap BUN Creatinine Est GFR ( Amer) Est GFR (Non-Af Amer) POC Glucose (mg/dL) 150 H 88 133 H Random Glucose Hemoglobin A1c Calcium Iron TIBC % Saturation Triglycerides Cholesterol LDL Cholesterol Direct HDL Cholesterol Vitamin B12 Folate TSH 3rd Generation Assessment & Plan - Assessment and Plan (Free Text) Plan: 81 yr Jess male, private 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 [place] [facility] [place]. Admitted in 05/23/17 for COPD with acute exacerbation and chest pain with low risk of ACS. Today, pt seen at bedside c/o dry mucous membranes. No distress noted. Denies any headache, fever, chills, nausea, vomiting, chest pain, shortness of breath, or urinary symptoms. pt is seen and examined at bed side , looking comfortable ,agreed all above . 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
[2017-05-24] MEDS: Oxymetazoline 0.05% Nasal Spray (30 ml) NS SCH (17:34)
[2017-05-24] MEDS: Benzocaine/Menthol (Cepacol) Lozenge MT PRN (17:38)
[2017-05-24] MEDS: Arformoterol 15 mcg/2 ml Inh Sol IH SCH (19:38)
--- NOTE | 2017-05-24 21:00 | CARD ---
APPROVED REPORT EKG Measurement Heart [id number] <Conclusion> Normal sinus rhythm Incomplete right bundle branch block Left anterior fascicular block Abnormal ECG
[2017-05-24] MEDS: MethylPREDNISolone 40 mg Vial IVP SCH (21:36)
[2017-05-24] MEDS: Latanoprost 2.5 ml Opht Soln OU SCH (21:38)
[2017-05-25] MEDS: Albuterol-Ipratrop 3 mg / 0.5 (3 ml) UD IH SCH ×4 (02:12→20:10)
[2017-05-25] MEDS: Oxymetazoline 0.05% Nasal Spray (30 ml) NS SCH ×2 (04:00→17:09)
[2017-05-25] MEDS: Levothyroxine 112 MCG TAB PO SCH ×2 (05:36→06:39)
[2017-05-25] MEDS: ABIRATERONE ACETATE 500 MG PO SCH (06:38)
[2017-05-25 06:55] LABS: HEMOGLOBIN 11.7 g/dL (14.0-18.0); MEAN CELL VOLUME 91.3 fl (80.0-105.0); MEAN CORPUSCULAR HEMOGLOBIN 29.3 pg (25.0-35.0); MEAN CORPUSCULAR HGB CONC 32.1 g/dl (31.0-37.0); MEAN PLATELET VOLUME 12.6 fl (7.0-11.0); WHITE BLOOD COUNT 7.9 10^3/ul (4.5-11.0)
[2017-05-25 07:20] LABS: ALB/GLOB RATIO 1.2 (1.1-1.8); ALT/SGPT 28 U/L (7-56); AST/SGOT 21 U/L (17-59); BLOOD UREA NITROGEN 22 mg/dL (7-21); GFR AFRICAN-AMERICAN > 60; GFR NON-AFRICAN AMERICAN > 60
[2017-05-25] MEDS: Arformoterol 15 mcg/2 ml Inh Sol IH SCH ×2 (08:12→20:18)
[2017-05-25] MEDS: Budesonide 0.5 mg/2 ml Inhal Susp UD IH SCH ×2 (08:12→20:10)
--- NOTE | 2017-05-25 08:27 | CON ---
DATE: 05/24/2017 REFERRING PHYSICIAN: Dr. Megan Sheth. REASON FOR CONSULTATION: Exacerbation of chronic lung disease and obstructive sleep apnea syndrome, also the cancer. 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 No hemoptysis, no hematemesis, no hematuria, and no diarrhea reported. PAST MEDICAL HISTORY: As per history of present illness. FAMILY HISTORY: No history of cardiopulmonary disease. SOCIAL HISTORY: Denying any active smoking. No alcohol use. ALLERGIES: NONE KNOWN. MEDICATIONS: He is on aspirin 325 mg daily, also getting Symbicort 2 puffs inhaled twice a day which is 160/4.5, DuoNeb every 6 hours round the clock, ferrous sulfate 325 mg with meals, Pepcid 40 mg daily, Solu-Medrol 40 mg every 12 hours, and Synthroid 112 mcg a.c.b. REVIEW OF SYSTEMS: No headache. Has some rhinitis, stuffy nose, cough, shortness of breath. No chest pain. No nausea, no vomiting, no diarrhea. No significant leg swelling. PHYSICAL EXAMINATION: GENERAL: Lying in the bed, in no acute distress. VITAL SIGNS: Temperature is 98, heart rate is 65, respiratory rate is 20, blood pressure 162/88, and pulse oximetry 99% on nasal cannula. HEENT: Moist mucous membranes. Crowded airway. Mallampati score is maxillary area tenderness. Nasal mucosa is mildly erythematous. LUNGS: Prolonged expiratory phase. No wheezing. No rhonchi. HEART: S1 and S2. ABDOMEN: Soft, nontender. No organomegaly. EXTREMITIES: There is no edema. NEUROLOGIC: Awake and alert. Follows simple commands. LABORATORY DATA: Shows hemoglobin 11.6, hematocrit 36.5, WBC 6.9, and platelet is 168. Had VBG done yesterday that shows pH 7.38, pCO2 of 49, and O2 of 23. Sodium 140, potassium 4.3, chloride 104, bicarbonate 27, BUN 18, creatinine 0.9, glucose 150, iron is 39, TIBC 276, cholesterol 258, B12 of 457, folate more than 20. Had a chest x-ray done, which showed consistent with COPD, gross bullous changes in the right apex again noted. IMPRESSION AND PLAN: Chronic obstructive lung disease, there is probably a component of sinusitis; sleep apnea syndrome with central and obstructive component; pulmonary hypertension; obstructive sleep apnea syndrome; hypothyroid; hyperlipidemia; metastatic prostate cancer. Pulmonary point of view, I agree with the present treatment. Continue IV steroids and doxycycline 100 mg twice a day. We will add Flonase one spray to each nostril twice a day, Singulair 10 mg daily, Zyrtec 10 mg daily. May use Afrin for 2 days for the nose. Encourage CPAP use at nighttime. Gastric prophylaxis. Deep venous thrombosis prophylaxis. Fall precaution. Thank you and we will follow with you. Christy Bartlett MD
[2017-05-25] MEDS: Insulin Reg-LOW-Coverage SC SCH ×4 (08:34→21:08)
[2017-05-25] MEDS: MethylPREDNISolone 40 mg Vial IVP SCH ×2 (09:18→21:08)
--- NOTE | 2017-05-25 15:58 | PN ---
DATE: 05/25/2017 PULMONARY PROGRESS NOTE REFERRING PHYSICIAN: Megan Sheth MD. SUBJECTIVE: He is out of bed to chair. Night was unremarkable. Tolerated BiPAP well, feels better today. Decreased rhinitis and stuffy nose . Decreased cough. No nausea, no vomiting, no diarrhea. No leg pain or leg swelling. OBJECTIVE: GENERAL: In no acute distress. VITAL SIGNS: Temperature is 98, heart rate is 63, respiratory rate is 18, blood pressure 144/93, pulse ox 94% on nasal cannula. HEENT: Moist mucous membranes. Crowded airway. NECK: Supple. No JVD. LUNGS: Fair airflow with rhonchi. HEART: S1 and S2. ABDOMEN: Soft, nontender. No organomegaly. EXTREMITIES: No edema. NEUROLOGICAL: Awake and alert. Follows simple command. MEDICATIONS: He is on Afrin 0.5 mg each nostril twice a day p.r.n., aspirin 325 mg daily, Brovana inhaled twice daily. He is also on Cepacol lozenges every 2 hours p.r.n., Claritin 10 mg daily, doxycycline 100 mg twice a day, DuoNeb every 6 hours, ferrous sulfate 324 mg with the meals, insulin coverage, nasal saline 2 sprays each nostril every 2 hours p.r.n., Pepcid 40 mg daily, Pulmicort inhaled twice a day, Singulair 10 mg daily, Solu-Medrol 40 mg every 12 hours, Synthroid 112 mcg daily. LABORATORY DATA: Shows hemoglobin 11.7, hematocrit 36.5, WBC 7.9, platelets 155. Sodium 139, potassium 4.4, chloride 102, bicarbonate 26. BUN 22, creatinine 0.9. Glucose 162. Calcium 10. AST is 21, ALT 28, alk phos is 310, albumin is 4. IMPRESSION AND PLAN: Chronic obstructive lung disease; sinusitis, obstructive sleep apnea syndrome, central and obstructive component to it, pulmonary hypertension; hypothyroid, hyperlipidemia, metastatic prostate cancer. Pulmonary point of view, he is feeling better. Continue BiPAP. Keep head at 45 degrees, nasal inhaled bronchodilator, antibiotics, gastric prophylaxis, fall precaution. We will follow with you. Christy Bartlett MD
[2017-05-25] MEDS: Latanoprost 2.5 ml Opht Soln OU SCH (21:08)
[2017-05-25] MEDS: Benzocaine/Menthol (Cepacol) Lozenge MT PRN (23:39)
[2017-05-26] MEDS: Albuterol-Ipratrop 3 mg / 0.5 (3 ml) UD IH SCH ×3 (01:48→13:49)
[2017-05-26] MEDS ORDERED: Levothyroxine 112 MCG TAB PO SCH (01:59)
[2017-05-26] MEDS ORDERED: ABIRATERONE ACETATE 500 MG PO SCH (02:00)
[2017-05-26] MEDS: Oxymetazoline 0.05% Nasal Spray (30 ml) NS SCH ×2 (03:00→15:51)
[2017-05-26] MEDS: Arformoterol 15 mcg/2 ml Inh Sol IH SCH (07:45)
[2017-05-26] MEDS: Insulin Reg-LOW-Coverage SC SCH ×2 (07:46→11:59)
[2017-05-26] MEDS: Budesonide 0.5 mg/2 ml Inhal Susp UD IH SCH (07:46)
[2017-05-26 08:09] VITALS: BP 142/74; RESP 20; TEMP 97; O2SAT 100
[2017-05-26] MEDS: MethylPREDNISolone 40 mg Vial IVP SCH (09:23)
--- NOTE | 2017-05-26 09:47 | PN ---
DATE: 05/25/2017 SUBJECTIVE: The patient is an 81-year-old male. Patient is seen and examined at the bedside, looking comfortable. No nausea, vomiting or diarrhea. Coughing is better. Shortness of breath is better. No change in the status. Tolerated BiPAP very well. Feeling better. Decreased runny nose, stuffy nose. No fever. No chills. No headache. No dizziness. PHYSICAL EXAMINATION: VITAL SIGNS: Temperature 98, heart rate 63, respiratory rate 18, blood pressure 144/93, pulse oximetry 94% on nasal cannula. HEENT: Head normocephalic and atraumatic. Eyes: PERRLA. Extraocular muscles intact. Conjunctivae clear. Nose patent. Mucous membrane moist. NECK: Supple. No carotid bruit. No JVD or thyromegaly. CHEST: Bilaterally symmetrical. HEART: S1 and S2 positive. LUNGS: Fair airflow with the rhonchi. ABDOMEN: Soft, nontender. No organomegaly. EXTREMITIES: No edema. No cyanosis. NEUROLOGIC: Patient is awake and alert. Follow simple commands. MEDICATIONS: Aspirin, Brovana, Cepacol lozenges, Claritin, doxycycline, DuoNeb, insulin, Pepcid, Pulmicort, Singulair, Solu-Medrol, Synthroid. LABORATORY DATA: Hemoglobin 11.7, hematocrit 36.5, white blood cell 7.9, platelets 155. Sodium 139, potassium 4.4, BUN 22, creatinine 0.9. AST 21, ALT 28. ASSESSMENT AND PLAN: The patient is an 81-year-old male with chronic obstructive lung disease, sinusitis, obstructive sleep apnea syndrome, pulmonary hypertension, hypothyroidism, hypercholesterolemia, prostate cancer with metastasis. Continue BiPAP, using aspirin. Gastrointestinal and deep venous prophylaxis. Discussion done with the patient. We will follow up. Megan Sheth MD MTDD
[2017-05-26] MEDS ORDERED: Enoxaparin 30 mg Syringe SC SCH (10:00)
[2017-05-26 11:36] VITALS: PULSE 71
--- NOTE | 2017-05-26 11:48 | CP.PCM.PN ---
<Alexia Diaz - Last Filed: 05/26/17 11:45> Subjective - Date & Time of Evaluation Date of Evaluation: 05/26/17 Time of Evaluation: 09:45 - Subjective Subjective: Chief Complaint: Frequent urination 81 yr Jess male, private 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 [place] [facility]. Admitted in 05/23/17 for COPD with acute exacerbation and chest pain with low risk of ACS. Today, pt seen at bedside c/o that lasix is causing hime to urinate too frequently. Mucous membranes are improved with nasal saline & lozenge. Pt was re-educated on the risk of afrin misuse. No distress noted. Denies any headache, fever, chills, nausea, vomiting , chest pain, shortness of breath, or urinary symptoms. Objective - Vital Signs/Intake and Output Vital Signs (last 24 hours): Temp Pulse Resp BP Pulse Ox 97.0 F L 71 20 142/74 100 05/26/17 06:00 05/26/17 10:00 05/26/17 06:00 05/26/17 06:00 05/26/17 06:00 Intake and Output: 05/26/17 05/26/17 06:59 18:59 Intake Total 780 Output Total 400 Balance 380 - Medications Medications: Current Medications Albuterol/Ipratropium (Duoneb 3 Mg/0.5 Mg (3 Ml) Ud) 3 ml IH [id number] [facility] Last Admin: 05/26/17 07:46 Dose: 3 ml Arformoterol Tartrate (Brovana) 15 mcg IH [id number] [facility] Last Admin: 05/26/17 07:45 Dose: 15 mcg Aspirin (Aspirin) 325 mg PO DAILY [facility] Last Admin: 05/26/17 09:24 Dose: 325 mg Benzocaine/Menthol (Cepacol Sore Throat) 1 eli MT Q2H PRN PRN Reason: Sore Throat Last Admin: 05/25/17 23:39 Dose: 1 eli Budesonide (Pulmicort Respules) 0.5 mg IH [id number] [facility] Last Admin: 05/26/17 07:46 Dose: 0.5 mg Doxycycline Hyclate (Doryx) 100 mg PO Q12 [facility] PRN Reason: Protocol Last Admin: 05/26/17 09:24 Dose: 100 mg Enoxaparin Sodium (Lovenox) 30 mg SC DAILY [facility] PRN Reason: Protocol Last Admin: 05/26/17 09:24 Dose: 30 mg Famotidine (Pepcid) 40 mg PO HS [facility] Last Admin: 05/25/17 21:08 Dose: 40 mg Ferrous Sulfate (Feosol) 324 mg PO WM [facility] Last Admin: 05/26/17 09:24 Dose: 324 mg Home Med (Home Med) 2 unit PO 0600 [facility] Last Admin: 05/26/17 05:35 Dose: 2 unit Insulin Human Regular (Humulin R Low) 0 units SC ACHS [facility] PRN Reason: Protocol Last Admin: 05/26/17 07:46 Dose: Not Given Latanoprost (Xalatan Opht) 0.05 ml OU HS [facility] Last Admin: 05/25/17 21:08 Dose: 0.05 ml Levothyroxine Sodium (Synthroid) 112 mcg PO 0600 [facility] Last Admin: 05/26/17 05:36 Dose: 112 mcg Loratadine (Claritin) 10 mg PO DAILY [facility] Last Admin: 05/26/17 09:24 Dose: 10 mg Methylprednisolone (Solu-Medrol) 20 mg IVP Q12 [facility] Last Admin: 05/26/17 09:23 Dose: 20 mg Montelukast Sodium (Singulair) 10 mg PO HS [facility] Last Admin: 05/25/17 21:08 Dose: 10 mg Oxymetazoline HCl (Afrin 0.05%) 0 ml NS Q12H [facility] Stop: 05/26/17 23:59 Last Admin: 05/26/17 03:00 Dose: Not Given Sodium Chloride (Hall Nasal Arthur) 0 ml NS Q2H PRN PRN Reason: Nasal congestion Last Admin: 05/24/17 17:38 Dose: 1 spr - Labs Labs: 05/25/17 05:30 05/25/17 05:30 - Constitutional Appears: Well - Head Exam Head Exam: ATRAUMATIC, NORMAL INSPECTION, NORMOCEPHALIC - Eye Exam Eye Exam: EOMI, Normal appearance, PERRL Pupil Exam: NORMAL ACCOMODATION, PERRL - ENT Exam ENT Exam: Mucous Membranes Moist, Normal Exam - Neck Exam Neck Exam: Full ROM, Normal Inspection. absent: Lymphadenopathy - Respiratory Exam Respiratory Exam: Clear to Ausculation Bilateral, NORMAL BREATHING PATTERN - Cardiovascular Exam Cardiovascular Exam: REGULAR RHYTHM, +S1, +S2. absent: Murmur - GI/Abdominal Exam GI & Abdominal Exam: Soft, Normal Bowel Sounds. absent: Tenderness - Extremities Exam Extremities Exam: Full ROM, Normal Capillary Refill, Normal Inspection. 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 UA C&S ordered. IV solumedryl. PO doxycyline. Will re-evaluate if patient needs any more diuretic. s/p IV lasix. VTE/GI prophlyaxis. PT/OT onboard. CPAP q HS. Consults: Pulmo - Dr. Bartlett Reviewed: ECG = ABNORMAL, NSR, incomplete R BBB, L anterior fascicular block CXR = COPD changes again appreciated w/ gross bullous changes in R apex again evident mild at the medial L apex <Megan Sheth - Last Filed: 05/26/17 20:48> Objective - Vital Signs/Intake and Output Vital Signs (last 24 hours): Temp Pulse Resp BP Pulse Ox 97.0 F L 71 20 142/74 100 05/26/17 06:00 05/26/17 10:00 05/26/17 06:00 05/26/17 06:00 05/26/17 14:01 - Labs Labs: 05/25/17 05:30 05/25/17 05:30 Assessment and Plan - Assessment and Plan (Free Text) Plan: 81 yr Jess male, private 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 [place] [facility]. Admitted in 05/23/17 for COPD with acute exacerbation and chest pain with low risk of ACS. Today, pt seen at bedside c/o that lasix is causing hime to urinate too frequently. Mucous membranes are improved with nasal saline & lozenge. Pt was re-educated on the risk of afrin misuse. No distress noted. Denies any headache, fever, chills, nausea, vomiting , chest pain, shortness of breath, or urinary symptoms.pt is seen and examined at bed side . looking comfortable , agreed all above , chart , meds and labs noted , will f/u
[2017-05-26] MEDS: Benzocaine/Menthol (Cepacol) Lozenge MT PRN (11:59)
--- NOTE | 2017-05-26 14:01 | IP.NPCORE ---
COPD Progress Note - COPD Progress Note Spirometry Assessment Completed:: No FEV1/FVC<70: No Plan to assess at outpatient follow up: Yes Symptoms:: Increase in Dyspnea, Cough Initial CXR:: copd Date:: 05/23/17 Oxygen Saturation/Pulse Oximetry:: 100 ABG Not Indicated (Symptoms Improved): No Nebulizers Q2-4 hrs:: Duonebs/Albuterol Therapy Antibiotics Not Indicated: No Systemic Steroids w/ methylprednisolone Name/Dose/Frequency:: solumedrol 20 q12 Oxygen Flow Rate: 3 Smoking cessation counseling all stages copd exacerbation: No
[2017-05-26 14:49] LABS: URINE BILIRUBIN NEGATIVE (NEGATIVE); URINE BLOOD NEGATIVE (NEGATIVE); URINE GLUCOSE (UA) NEGATIVE (NEGATIVE); URINE LEUKOCYTE ESTERASE NEGATIVE Leu/uL (NEGATIVE); URINE PROTEIN NEGATIVE mg/dL (<30 mg/dL); URINE UROBILINOGEN 0.2 E.U./dL (<1 E.U./dL)
[2017-05-26 14:52] LABS: URINE APPEARANCE CLEAR (CLEAR); URINE COLOR YELLOW (YELLOW)
--- NOTE | 2017-05-26 19:50 | PN ---
DATE: 05/26/2017 PULMONARY PROGRESS NOTE REFERRING PHYSICIAN: Dr. Sheth. SUBJECTIVE: He is lying in the bed, head at 45 degrees. Night was unremarkable, tolerated BiPAP well. No headache, no rhinitis. No nausea, no vomiting. No diarrhea, leg pain or leg swelling. OBJECTIVE: GENERAL: In no acute distress. VITAL SIGNS: Temperature is 98, heart rate is 71, respiratory rate is 20, blood pressure 142/74, pulse of 100%, 3 liters nasal cannula. HEENT: Moist mucous membranes. Crowded airway. Mallampati score is four. NECK: Supple. No JVD. LUNGS: Has a fair airflow with a few rhonchi. HEART: S1 and S2. ABDOMEN: Soft, nontender. No organomegaly. EXTREMITIES: No edema. NEUROLOGIC: Awake and alert. Follows simple commands. MEDICATION: Reviewed and noted no new change in medication reported since yesterday. LABORATORY DATA: Reviewed and noted blood sugar this morning is 177. IMPRESSION AND PLAN: Exacerbation of chronic obstructive lung disease, sinusitis, obstructive sleep apnea syndrome, central obstructive sleep apnea syndrome, pulmonary hypertension, hypothyroidism, hyperlipidemia, metastatic prostate cancer. Pulmonary point of view, he is doing okay. Spoke to floor nurse practitioner. May go home with taper dose of steroids, another 5 days of antibiotics. Encourage BiPAP use at nighttime and inhale bronchodilator. Follow up Oncology as outpatient. Thank you and we will follow with you. Christy Bartlett MD
== END 2017-05-26 17:57 | disposition home or self-care (01) | DRG 192 ==
LOC: ED 19:51 → ERH 22:21 → 3RNO 05-24 00:18
PROVIDERS: ADMIT Internal Medicine; ATTEND Internal Medicine
PROC: 5A09457 Assistance with Respiratory Ventilation, 24-96 Consecutive Hours, Continuous Positive Airway Pressure (ICD-10-PCS; principal; 2017-05-24)
PROC: 3E0F7GC Introduction of Other Therapeutic Substance into Respiratory Tract, Via Natural or Artificial Opening (ICD-10-PCS; 2017-05-24)
DX: J44.1 Chronic obstructive pulmonary disease with (acute) exacerbation (principal); E09.9 Drug or chemical induced diabetes mellitus without complications; T38.0X5A Adverse effect of glucocorticoids and synthetic analogues, initial encounter; K59.00 Constipation, unspecified; D50.9 Iron deficiency anemia, unspecified; E78.5 Hyperlipidemia, unspecified; I10 Essential (primary) hypertension; G47.33 Obstructive sleep apnea (adult) (pediatric); I27.20 Pulmonary hypertension, unspecified; E78.00 Pure hypercholesterolemia, unspecified; R35.0 Frequency of micturition; E03.9 Hypothyroidism, unspecified; H26.9 Unspecified cataract; H40.9 Unspecified glaucoma; Z87.891 Personal history of nicotine dependence; Z85.46 Personal history of malignant neoplasm of prostate; Z79.51 Long term (current) use of inhaled steroids; Z79.52 Long term (current) use of systemic steroids

== ENCOUNTER 2017-06-16 22:46 | Observation (INO) | payer MEDICARE, OTHER ==
[2017-06-16] MEDS ORDERED: Albuterol-Ipratrop 3 mg / 0.5 (3 ml) UD IH STA (23:44)
--- NOTE | 2017-06-16 23:52 | ED PDOC ---
Arrival/HPI - General Chief Complaint: Flu-like Symptoms Time Seen by Provider: 06/16/17 23:28 Historian: Patient - History of Present Illness Narrative History of Present Illness (Text): 06/16/17 23:51 81 year old male, whose past medical history includes sleep apnea, COPD, vertigo , hypothyroidism, prostate CA, anemia, and cystoscopy, presents to the emergency department complaining of shortness of breath associated with episodes of coughing blood in sputum. Patient states at one point he felt dizzy/ near syncopal episode. Patient reports generalized malaise, but Patient denies any fever, chills, chest pain, shortness of breath, nausea, vomiting, diarrhea, urinary symptoms, back pain, neck pain, headache, or any other complaints. PMD: Dr.Akhtar Pat: Dr. Bartlett Past Medical History - Provider Review Nursing Documentation Reviewed: Yes - Infectious Disease Hx of Infectious Diseases: None - Tetanus Immunization Tetanus Immunization: Unknown - Cardiac Hx Cardiac Disorders: Yes Hx Hypertension: Yes - Pulmonary Hx Chronic Obstructive Pulmonary Disease (COPD): Yes - Neurological Hx Neurological Disorder: Yes Hx Dizziness: Yes (VERTIGO) - HEENT Hx HEENT Disorder: Yes (eyeglasses) Hx Cataracts: Yes (b/l sx) Hx Glaucoma: Yes (b/l takes eye drops) - Renal Hx Renal Disorder: No - Endocrine/Metabolic Hx Diabetes Mellitus Type 2: (patient denies) Hx Hypothyroidism: Yes - Hematological/Oncological Hx Blood Disorders: Yes Hx Anemia: Yes Hx Cancer: Yes (PROSTATE-takes Zytiga) Other/Comment: pt first dx 2000 with prostate ca tx with hormone injections, then in 2003 dx again had 9 weeks of radiation 5 days a week and homone injections zoladex both times was maintained on zoladex for 12 yrs, then dx 2016 now takes zytiga hormone based chemo in pill form daily (FROM PAST TRIAGE) - Integumentary Hx Dermatological Disorder: Yes Other/Comment: ble dry skin - Musculoskeletal/Rheumatological Hx Arthritis: Yes - Gastrointestinal Hx Gastrointestinal Disorders: Yes (Constipation takes Colace daily) - Genitourinary/Gynecological Hx Genitourinary Disorders: Yes (self-catheterization at times) Hx Prostate Problems: Yes (PROSTATE CA) Other/Comment: cystoscopy, after radiation treatments in 2003 pt had 2wf x 3 months and sometimes has to self catherize himself 3-4 times a week - Psychiatric Hx Psychophysiologic Disorder: No Hx Substance Use: No - Anesthesia Hx Anesthesia: Yes Hx Anesthesia Reactions: No Hx Malignant Hyperthermia: No Family/Social History - Physician Review Nursing Documentation Reviewed: Yes Family/Social History: No Known Family HX Smoking Status: Former Smoker Hx Alcohol Use: Yes Hx Substance Use: No Hx Substance Use Treatment: No Allergies/Home Meds Allergies/Adverse Reactions: Allergies No Known Allergies Allergy (Verified 03/18/17 08:41) Home Medications: Home Meds Medication Instructions Recorded Confirmed Abiraterone Acetate [Zytiga] 1,000 mg PO DAILY 03/18/17 06/16/17 Budesonide/Formoterol Fumarate 2 puff IH BID 03/18/17 06/16/17 [Symbicort 160-4.5 Mcg Inhaler] Fluticasone Nasal [Flonase] 2 spr NS BID PRN 03/18/17 06/16/17 Latanoprost 0.005% Opht [Xalatan 1 drp OU HS 03/18/17 06/16/17 Opht] Levothyroxine [Synthroid] 112 mcg PO DAILY 03/18/17 06/16/17 Review of Systems - Physician Review All systems were reviewed & negative as marked: Yes - Review of Systems Constitutional: absent: Fevers, Other (Chills) Respiratory: Other (hemoptysis). absent: SOB Cardiovascular: absent: Chest Pain Gastrointestinal: absent: Diarrhea, Nausea, Vomiting Genitourinary Male: absent: Dysuria, Frequency, Hematuria Musculoskeletal: Other (malaise). absent: Back Pain, Neck Pain Neurological: Dizziness (/near syncopal). absent: Headache Physical Exam Vital Signs Reviewed: Yes Vital Signs Pulse Resp BP Pulse Ox 06/16/17 22:47 78 14 131/81 100 Temperature: Afebrile Blood Pressure: Normal Pulse: Regular Respiratory Rate: Normal Appearance: Positive for: Well-Appearing, Non-Toxic, Comfortable Pain Distress: None Mental Status: Positive for: Alert and Oriented X 3 - Systems Exam Head: Present: Atraumatic, Normocephalic Pupils: Present: PERRL Extroacular Muscles: Present: EOMI Conjunctiva: Present: Normal Mouth: Present: Moist Mucous Membranes Neck: Present: Normal Range of Motion Respiratory/Chest: Present: Decreased Breath Sounds (Bilaterally ). No: Respiratory Distress, Accessory Muscle Use Cardiovascular: Present: Regular Rate and Rhythm, Normal S1, S2. No: Murmurs Abdomen: No: Tenderness, Distention, Peritoneal Signs Back: Present: Normal Inspection Upper Extremity: Present: Normal Inspection. No: Cyanosis, Edema Lower Extremity: Present: Normal Inspection. No: Edema Neurological: Present: GCS=15, CN II-XII Intact, Speech Normal Skin: Present: Warm, Dry, Normal Color. No: Rashes Psychiatric: Present: Alert, Oriented x 3, Normal Insight, Normal Concentration Medical Decision Making ED Course and Treatment: 06/16/17 23:51 Impression: 81 year old male presents complaining of shortness of breath associated with episodes of hemoptysis. Patient also reports malaise and at one point an having a dizzy/near syncopal episode. Plan: -- Head CT w/o Contrast -- Chest CT w/o contrast -- EKG -- Labs -- Chest X-ray -- Douneb, Solu-Medrol -- Reassess and disposition Prior Visits: Notes and results from previous visits were reviewed. Patient was last seen in the emergency department on 05/23/17 presents complaining of worsening shortness of breath/ congestion sensation. Pt was admitted. Progress Notes: EXAM: CT Head Without Intravenous Contrast Dictated and Authenticated by: Adis Mariscal MD 06/17/2017 1:38 AM IMPRESSION: 1. Nonspecific white matter changes. Acute infarction may be CT occult within first 24 hours. If a focal deficit persists, consider followup CT or MRI for further evaluation. 2. Incidental/non-acute findings are described above. EXAM: CT Chest Without Intravenous Contrast Dictated and Authenticated by: Adis Mariscal MD 06/17/2017 1:46 AM IMPRESSION: 1. Emphysema. 2. Diffuse osseous metastases. EKG shows NSR at 75 BPM with incomplete RBBB. Nonspecific ST/T changes. Interpreted by me. 06/17/17 01:[address] Reagan covering Dr. Sheth who is aware and agrees with the plan. Accepts patient into Dr. Sheth's service. Requests Dr. Bartlett on consult. - Lab Interpretations Lab Results: 06/17/17 00:18 06/17/17 00:18 Lab Results 06/17/17 00:18: WBC 6.1 D, RBC 3.85, Hgb 11.3 L, Hct 35.6 L, MCV 92.5, MCH 29.4 , MCHC 31.7, RDW 14.3, Plt Count 146, MPV 12.5 H 06/17/17 00:18: PT 11.4, INR 1.00, APTT 35.2 06/17/17 00:18: Sodium 142, Potassium 4.3, Chloride 104, Carbon Dioxide 28, Anion Gap 14, BUN 17, Creatinine 0.8, Est GFR ( Amer) > 60, Est GFR (Non- Af Amer) > 60, Random Glucose 179 H, Calcium 9.3, Total Bilirubin 0.3, AST 20, ALT 20, Alkaline Phosphatase 330 H, Lactate Dehydrogenase 581, Total Creatine Kinase 86, Troponin I 0.02 D, NT-Pro-B Natriuret Pep 123, Total Protein 6.8, Albumin 3.9, Globulin 2.9, Albumin/Globulin Ratio 1.3 I have reviewed the lab results: Yes - RAD Interpretation Radiology Orders: 06/16/17 23:42 HEAD W/O CONTRAST [CT] Stat 06/16/17 23:43 CHEST W/O CONTRAST [CT] Stat CHEST PORTABLE [RAD] Stat - EKG Interpretation Interpreted by ED Physician: Yes Type: 12 lead EKG - Medication Orders Current Medication Orders: Discontinued Medications Acetaminophen (Tylenol 325mg Tab) 650 mg PO STAT STA Stop: 06/17/17 02:01 Albuterol/Ipratropium (Duoneb 3 Mg/0.5 Mg (3 Ml) Ud) 3 ml IH ONCE STA Stop: 06/16/17 23:45 Last Admin: 06/17/17 00:18 Dose: 3 ml Methylprednisolone (Solu-Medrol) 125 mg IVP ONCE ONE Stop: 06/16/17 23:45 Last Admin: 06/17/17 00:19 Dose: 125 mg IVP Administration Document 06/17/17 00:19 MS (Rec: 06/17/17 00:19 MS [id number]) Charges for Administration # of IVP Administrations 1 - Scribe Statement The provider has reviewed the documentation as recorded by the Latisha Maurer Provider Scribe Attestation: All medical record entries made by the Shortyibsurinder were at my direction and personally dictated by me. I have reviewed the chart and agree that the record accurately reflects my personal performance of the history, physical exam, medical decision making, and the department course for this patient. I have also personally directed, reviewed, and agree with the discharge instructions and disposition. Disposition/Present on Arrival - Present on Arrival Any Indicators Present on Arrival: No History of DVT/PE: No History of Uncontrolled Diabetes: Yes Urinary Catheter: No History of Decub. Ulcer: No History Surgical Site Infection Following: None - Disposition Have Diagnosis and Disposition been Completed?: Yes Diagnosis: COPD with acute exacerbation, Hemoptysis Disposition: HOSPITALIZED Disposition Time: 01:53 Patient Plan: Observation Patient Problems: Current Active Problems Problem Status Onset COPD with acute exacerbation Acute Hemoptysis Acute Condition: STABLE
[2017-06-17 00:56] LABS: ALB/GLOB RATIO 1.3 (1.1-1.8); ALBUMIN 3.9 g/dL (3.0-4.8); ALT/SGPT 20 U/L (7-56); AST/SGOT 20 U/L (17-59); BLOOD UREA NITROGEN 17 mg/dL (7-21); CALCIUM 9.3 mg/dL (8.4-10.5); GFR AFRICAN-AMERICAN > 60; GFR NON-AFRICAN AMERICAN > 60; HEMOGLOBIN 11.3 g/dL (14.0-18.0); MEAN CELL VOLUME 92.5 fl (80.0-105.0); MEAN CORPUSCULAR HEMOGLOBIN 29.4 pg (25.0-35.0); MEAN CORPUSCULAR HGB CONC 31.7 g/dl (31.0-37.0); MEAN PLATELET VOLUME 12.5 fl (7.0-11.0); RBC 3.85 10^6/uL (3.5-6.1); RED CELL DISTRIBUTION WIDTH 14.3 % (11.5-14.5); WHITE BLOOD COUNT 6.1 10^3/ul (4.5-11.0)
[2017-06-17 00:58] LABS: B-TYPE NATRIURETIC PEPTIDE 123 pg/mL (0-450); TROPONIN I 0.02 ng/mL
[2017-06-17 01:11] LABS: PARTIAL THROMBOPLASTIN TIME 35.2 Seconds (25.1-36.5); PROTHROMBIN TIME 11.4 SECONDS (9.4-12.5)
--- NOTE | 2017-06-17 01:39 | CT ---
EXAM: CT Head Without Intravenous Contrast CLINICAL HISTORY: 81 years old, male; Signs and symptoms; Syncope and collapse; Additional info: Near syncope TECHNIQUE: Axial computed tomography images of the head/brain without intravenous contrast. All CT scans at this facility use one or more dose reduction techniques, viz.: automated exposure control; ma/kV adjustment per patient size (including targeted exams where dose is matched to indication; i.e. head); or iterative reconstruction technique. Coronal and sagittal reformatted images were created and reviewed. COMPARISON: CT - HEAD W/O CONTRAST 2017-03-13 21:14 FINDINGS: Brain: [id number] atrophy. No intracranial hemorrhage. No mass. Several scattered foci of decreased attenuation within periventricular/subcortical white matter. No definite edema. Ventricles: No hydrocephalus. Bones/joints: No acute fracture. Soft tissues: Unremarkable. Vasculature: Mild atherosclerotic disease of intracranial arteries. Sinuses: Scattered mild mucosal thickening. Mastoid air cells: No mass or effusion. Orbits: Unremarkable as visualized. IMPRESSION: 1. Nonspecific white matter changes. Acute infarction may be CT occult within first 24 hours. If a focal deficit persists, consider followup CT or MRI for further evaluation. 2. Incidental/non-acute findings are described above.
--- NOTE | 2017-06-17 01:46 | CT ---
EXAM: CT Chest Without Intravenous Contrast CLINICAL HISTORY: 81 years old, male; Signs and symptoms; Other: Hemoptysis TECHNIQUE: Axial computed tomography images of the chest without intravenous contrast. All CT scans at this facility use one or more dose reduction techniques, viz.: automated exposure control; ma/kV adjustment per patient size (including targeted exams where dose is matched to indication; i.e. head); or iterative reconstruction technique. Coronal and sagittal reformatted images were created and reviewed. COMPARISON: CT - ANGIO CHEST PE PROTOCOL 2017-01-20 11:04 FINDINGS: Limitations: Lack of intravenous contrast. Lungs: Moderate centrilobular emphysematous changes with large bullae within upper lobes. Mild atelectasis/scarring. No consolidation. Pleural space: No pneumothorax. No significant effusion. Heart: No cardiomegaly. No significant pericardial effusion. Coronary artery calcifications. Mediastinum: Small hiatal hernia. Bones/joints: Innumerable sclerotic lesions throughout visualized bones. Mild degenerative changes of spine. No acute fracture. Soft tissues: Minimal gynecomastia. Vasculature: Dkoj-tj-igeirime atherosclerotic disease. No aneurysm. Lymph nodes: No pathologically enlarged lymph nodes. Liver: Small calcification. Kidneys and ureters: Moderate pelvocaliectasis of LEFT kidney, incompletely imaged but grossly stable. IMPRESSION: 1. Emphysema. 2. Diffuse osseous metastases. 3. Incidental/non-acute findings are described above.
[2017-06-17 05:10] VITALS: BMI 33.1
[2017-06-17] MEDS: Acetylcysteine 20% Inhal Soln (4ml) IH SCH ×3 (10:44→20:06)
[2017-06-17] MEDS: Arformoterol 15 mcg/2 ml Inh Sol IH SCH ×2 (10:44→20:06)
[2017-06-17] MEDS: Budesonide 0.25 mg/2 ml Inhal Susp UD IH SCH (20:06)
[2017-06-17] MEDS: Latanoprost 2.5 ml Opht Soln OU SCH (21:20)
[2017-06-17] MEDS: Benzocaine/Menthol (Cepacol) Lozenge MT PRN (21:55)
[2017-06-17] MEDS ORDERED: Latanoprost 2.5 ml Opht Soln OU SCH (22:00)
--- NOTE | 2017-06-18 00:28 | CON ---
DATE: 06/17/2017 PULMONARY CONSULT REFERRING PHYSICIAN: Megan Sheth MD. REASON FOR CONSULT: Hemoptysis, cough, shortness of breath, has sleep apnea syndrome. 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 Yesterday, he used his inhalers, after that he start coughing and start producing blood and end up calling EMS and came to emergency room where he is admitted for further workup. Presently, lying in the bed, feels okay. Mild cough and shortness of breath. No chest pain. No nausea. No vomiting, diarrhea, leg pain, leg swelling. PAST MEDICAL HISTORY: As per history of present illness. SOCIAL HISTORY: Denies any active smoking. No alcohol use. ALLERGIES: NONE KNOWN. FAMILY HISTORY: No significant cardiopulmonary disease reported. MEDICATIONS: He is on Mucomyst 20% inhaled every 6 hours, Brovana inhaled twice a day, Cepacol lozenges every 4 hours, Claritin 10 mg daily, Colace 100 mg twice a day, Ecotrin 81 mg daily, methylprednisolone 4 mg twice a day, Pepcid 40 mg daily, Pulmicort inhaled twice a day, Synthroid 112 mcg daily, eye drops. REVIEW OF SYSTEMS: No headache. No rhinitis. Had episode of hemoptysis yesterday. Also complaining about one of the teeth filling is out now, has some tenderness there. No nausea. No vomiting. No diarrhea. No significant leg pain or leg swelling. PHYSICAL EXAMINATION: GENERAL: Lying in the bed, no acute distress. VITAL SIGNS: Temperature is 98, heart rate is 65, respiratory rate is 20, blood pressure 173/87, pulse ox 98% on nasal cannula. HEENT: Moist mucous membrane. Crowded airway. Mallampati score is 4. Right lower jaw one of the teeth filling is missing. LUNGS: Have scattered rhonchi with few wheezing. HEART: S1 and S2. ABDOMEN: Soft, nontender. No organomegaly. EXTREMITIES: No edema. NEUROLOGIC: Awake, alert. Follows simple command. LABORATORY DATA: Shows hemoglobin 11.3, hematocrit 35.6, WBC 6.1, platelet is 146. INR 1, PTT is 35. VBG showed pH 7.38, pCO2 of 49, O2 of 23. Sodium 142, potassium 4.3, chloride 104, bicarbonate 28, BUN is 17, creatinine 0.8, glucose 179, calcium is 9.3, AST 20, ALT 20, alk phos is 330. Troponin is less than 0.02. ProBNP 123. Albumin is 3.9. Urinalysis is unremarkable. Urine culture, multiple organisms, suggested repeating. Has a CAT scan of the chest done, which shows emphysema, diffuse osseous metastasis. Also has a CT of the head done in ER, which shows white matter changes, acute infarction not observed. IMPRESSION AND PLAN: Exacerbation of chronic obstructive lung disease with some hemoptysis, probably the blood is coming from his tooth; history of sinusitis; obstructive and central sleep apnea syndrome; pulmonary hypertension; hypothyroid; hyperlipidemia; metastatic prostate cancer. Pulmonary point of view, continue bronchodilator. Keep head at [address] him on continuous positive airway pressure tonight. If no more hemoptysis by tomorrow, discharge planning. Fall precaution. He will follow up at [facility] for his tooth issue. Christy Bartlett MD
--- NOTE | 2017-06-18 00:59 | HP ---
DATE OF EXAM: 06/17/2017 COVERING FOR: Dr. Megan Sheth. HISTORY OF PRESENT ILLNESS: The patient is an 81-year-old male admitted through the emergency department with complaints of shortness of breath and hemoptysis. The patient denies any shortness of breath or chest pain at present. He complains of mild dyspnea on exertion and fatigue. He states that he had a short period of dizziness prior to being evaluated, but denies any dizziness or chest pain at present. The patient reports some blood in his sputum. He feels this may have come from his oral cavity from dental problems. He denies any fever or chills. No wheezing. PAST MEDICAL HISTORY: Includes type 2 diabetes mellitus, COPD, hypothyroidism and anemia. PAST SURGICAL HISTORY: Includes of the prostate with known bone metastasis. MEDICATIONS: The patient's current medications include Zytiga 1000 mg daily, Symbicort 160/4.5 two puffs twice daily, Flonase nasal spray, Xalatan ophthalmic solution and Synthroid 112 mcg p.o. daily for hypothyroidism. ALLERGIES: THE PATIENT HAS NO KNOWN ALLERGIES. FAMILY HISTORY: Noncontributory. SOCIAL HISTORY: The patient has a past history of tobacco use. Denies alcohol use. He is independent with ADLs and IADLs. REVIEW OF SYSTEMS: Essentially as above. PHYSICAL EXAMINATION: GENERAL: The patient is a well-developed male, in no acute distress. Blood pressure 134/88, temperature 97.8, pulse 67, respiratory rate 20. HEENT: Head is normocephalic, atraumatic. Pupils equal, round, reactive to light. Extraocular movements intact. NECK: Supple with no thyromegaly. No carotid bruit. No adenopathy. LUNGS: Show a few scattered rhonchi bilaterally. No wheezing. HEART: Regular rate and rhythm. ABDOMEN: Soft, nontender. Bowel sounds are normoactive. EXTREMITIES: Without cyanosis, clubbing or edema. NEUROLOGIC: The patient is awake and oriented x3 without focal sensory or motor deficits. SKIN: Warm and dry. LABORATORY DATA: WBC 6.1, hemoglobin 11.3, hematocrit 35.6. PT 11.4, INR 1. Sodium 142, potassium 4.3, chloride 104, CO2 of 28, BUN 17, creatinine 0.8, glucose 179, alkaline phosphatase elevated at 330. Troponin is 0.02. IMPRESSION: 1. Hemoptysis. 2. Near syncope. 3. Chronic obstructive pulmonary disease. 4. Metastatic prostate cancer. 5. Type 2 diabetes mellitus. PLAN: We will admit him to the telemetry unit. We will obtain Pulmonary consultation by Dr. Bartlett. Continue present medications. Nebulizer treatments. Dr. Sheth to resume coverage on Monday. XIMENA Pepe MD
[2017-06-18] MEDS: Levothyroxine 112 MCG TAB PO SCH (05:04)
[2017-06-18] MEDS: Arformoterol 15 mcg/2 ml Inh Sol IH SCH ×2 (08:06→20:40)
[2017-06-18] MEDS: Acetylcysteine 20% Inhal Soln (4ml) IH SCH ×4 (08:06→23:38)
[2017-06-18] MEDS: Budesonide 0.25 mg/2 ml Inhal Susp UD IH SCH ×2 (08:06→20:40)
[2017-06-18] MEDS: ABIRATERONE ACETATE 1000 MG PO SCH (09:51)
[2017-06-18] MEDS: Benzocaine/Menthol (Cepacol) Lozenge MT PRN ×3 (09:55→21:01)
--- NOTE | 2017-06-18 11:53 | CP.PCM.PN ---
Subjective - Date & Time of Evaluation Date of Evaluation: 06/18/17 Time of Evaluation: 11:00 - Subjective Subjective: c/o some SOB last night, no chest pain, no hemoptysis Objective - Vital Signs/Intake and Output Vital Signs (last 24 hours): Temp Pulse Resp BP Pulse Ox 98.1 F 61 20 149/88 100 06/18/17 06:00 06/18/17 09:10 06/18/17 06:00 06/18/17 06:00 06/18/17 06:00 Intake and Output: 06/18/17 06/18/17 06:59 18:59 Intake Total 660 Output Total 1225 Balance -565 - Medications Medications: Current Medications Acetylcysteine (Acetylcysteine 20%) 4 ml IH [id number] [facility] Last Admin: 06/18/17 08:06 Dose: 4 ml Arformoterol Tartrate (Brovana) 15 mcg IH [id number] [facility] Last Admin: 06/18/17 08:06 Dose: 15 mcg Aspirin (Ecotrin) 81 mg PO DAILY [facility] Last Admin: 06/18/17 09:52 Dose: 81 mg Benzocaine/Menthol (Cepacol Sore Throat) 1 eli MT Q4H PRN PRN Reason: Sore Throat Last Admin: 06/18/17 09:55 Dose: 1 eli Budesonide (Pulmicort Respules) 0.25 mg IH [id number] [facility] Last Admin: 06/18/17 08:06 Dose: 0.25 mg Docusate Sodium (Colace) 100 mg PO BID [facility] Last Admin: 06/18/17 09:50 Dose: 100 mg Famotidine (Pepcid) 40 mg PO HS [facility] Last Admin: 06/17/17 21:19 Dose: 40 mg Ferrous Sulfate (Feosol) 324 mg PO WM [facility] Last Admin: 06/18/17 11:17 Dose: 324 mg Latanoprost (Xalatan Opht) 0 ml OU HS [facility] Last Admin: 06/17/17 21:20 Dose: 2.5 ml Levothyroxine Sodium (Synthroid) 112 mcg PO 0600 [facility] Last Admin: 06/18/17 05:04 Dose: 112 mcg Loratadine (Claritin) 10 mg PO DAILY [facility] Last Admin: 06/18/17 09:57 Dose: 10 mg Methylprednisolone (Medrol) 4 mg PO BIDPC [facility] Last Admin: 06/18/17 09:49 Dose: 4 mg Non-Formulary Medication (Abiraterone Acetate [Zytiga]) 1,000 mg PO DAILY [facility] Last Admin: 06/18/17 09:51 Dose: Not Given - Labs Labs: PT 11.4 SECONDS (9.4-12.5) 06/17/17 00:18 INR 1.00 (0.93-1.08) 06/17/17 00:18 APTT 35.2 Seconds (25.1-36.5) 06/17/17 00:18 - Respiratory Exam Respiratory Exam: Clear to Ausculation Bilateral, NORMAL BREATHING PATTERN - Cardiovascular Exam Cardiovascular Exam: REGULAR RHYTHM - GI/Abdominal Exam GI & Abdominal Exam: Soft, Normal Bowel Sounds - Extremities Exam Extremities Exam: Normal Inspection - Neurological Exam Neurological Exam: Alert, Awake - Skin Skin Exam: Dry, Warm Assessment and Plan (1) COPD with acute exacerbation Status: Chronic (2) Hemoptysis Status: Suspected (3) Anemia Status: Chronic (4) CA of prostate Status: Chronic - Assessment and Plan (Free Text) Plan: continue present rx, pulmonary follow-up Dr. Bartlett, Dr. Sheth to resume care of patient in am
[2017-06-18] MEDS ORDERED: Oxymetazoline 0.05% Nasal Spray (30 ml) NS PRN ×2 (13:56→14:10)
--- NOTE | 2017-06-18 14:19 | PN ---
DATE: 06/18/2017 PULMONARY PROGRESS NOTE REFERRING PHYSICIAN: Dr. Megan Sheth MD. SUBJECTIVE: He is lying in the bed, night was unremarkable. Complaining about stuffy nose. No more hemoptysis. No chest pain. No nausea. No vomiting, diarrhea, leg pain, leg swelling. OBJECTIVE: GENERAL: No acute distress. VITAL SIGNS: Temp is 98, heart rate is 62, respiratory rate is 18, blood pressure 157/83, pulse ox 100% on BiPAP. HEENT: Moist mucous membrane. Crowded airway. NECK: Supple. No JVD. LUNGS: Have a fair airflow with rhonchi. HEART: S1 and S2. ABDOMEN: Soft, nontender. No organomegaly. EXTREMITIES: There is no edema. NEUROLOGICAL: Awake and alert. Follows simple command. LABORATORY DATA: Reviewed. No new lab is available. Microbiology: No culture available. MEDICATIONS: He is on Mucomyst 20% inhaled every 6 hours, Brovana inhaled twice a day, Cepacol lozenges every 4 hours p.r.n., Claritin 10 mg daily, Colace 100 mg twice a day, Ecotrin 81 mg daily, ferrous sulfate 324 mg with the meals, Medrol 4 mg twice a day, Pepcid 40 mg at bedtime, Pulmicort inhaled twice a day, Synthroid 112 mcg daily. IMPRESSION AND PLAN: Admitted with hemoptysis, has a chronic lung disease, history of sinusitis, obstructive and central sleep apnea syndrome, pulmonary hypertension, hypothyroid, hyperlipidemia, metastatic prostate cancer. Pulmonary point of view, he is doing well. We will add Flonase 1 spray to each nostril twice a day. Mail Afrin 1 spray each nostril daily p.r.n. Bilevel positive airway pressure while sleeping. P.o. and inhaled bronchodilator. Fall precaution. Thank you and we will follow with you. Christy Bartlett MD
[2017-06-18] MEDS: Latanoprost 2.5 ml Opht Soln OU SCH (21:02)
--- NOTE | 2017-06-18 22:48 | CARD ---
APPROVED REPORT EKG Measurement Heart [id number] MO [id number] [id number] <Conclusion> Normal sinus rhythm Rightward axis Incomplete right bundle branch block Cannot rule out Inferior infarct, age undetermined Abnormal ECG
[2017-06-19] MEDS: Levothyroxine 112 MCG TAB PO SCH (05:09)
[2017-06-19] MEDS: Benzocaine/Menthol (Cepacol) Lozenge MT PRN (06:19)
[2017-06-19 06:31] VITALS: O2SAT 99
[2017-06-19] MEDS: Arformoterol 15 mcg/2 ml Inh Sol IH SCH (07:48)
[2017-06-19] MEDS: Budesonide 0.25 mg/2 ml Inhal Susp UD IH SCH (07:48)
[2017-06-19] MEDS: Acetylcysteine 20% Inhal Soln (4ml) IH SCH (07:50)
[2017-06-19] MEDS: ABIRATERONE ACETATE 1000 MG PO SCH (09:15)
[2017-06-19 12:33] VITALS: BP 157/88; RESP 20; TEMP 97.6
[2017-06-19 14:17] VITALS: PULSE 63
[2017-06-19] MEDS ORDERED: Albuterol-Ipratrop 3 mg / 0.5 (3 ml) UD IH PRN (16:17)
[2017-06-19] MEDS ORDERED: Albuterol-Ipratrop 3 mg / 0.5 (3 ml) UD IH STA (16:23)
--- NOTE | 2017-06-19 22:50 | PN ---
DATE: 06/19/2017 PULMONARY PROGRESS NOTE REFERRING PHYSICIAN: Megan Sheth MD SUBJECTIVE: He is lying bed, head at 45 degree. Night was unremarkable, tolerated BiPAP well. Rhinitis is better. No nausea, no vomiting, no diarrhea. No leg pain or leg swelling. OBJECTIVE: GENERAL: In no acute distress. VITAL SIGNS: Temp is 98, heart rate is 60, respiratory rate is 18, blood pressure 157/88, pulse ox 99% on nasal cannula. HEENT: Moist mucous membranes. Crowded airway. NECK: Supple. No JVD. LUNGS: Has a fair airflow, no rhonchi. HEART: S1 and S2. ABDOMEN: Soft, nontender. No organomegaly. EXTREMITIES: No edema. NEUROLOGIC: Awake and alert. Follows simple commands. MEDICATIONS: Reviewed and noted, no new change in medication reported since yesterday. LABORATORY DATA: Reviewed, no new lab is available since yesterday. IMPRESSION AND PLAN: Chronic obstructive lung disease, admitted with hemoptysis, cause probably was dental bleed, obstructive central sleep apnea syndrome, pulmonary hypertension, hypothyroidism, hyperlipidemia, and metastatic prostate cancer. Pulmonary point of view, he is doing okay. May discharge home with taper dose of steroids, antibiotics, and inhaled bronchodilator, bilevel positive airway pressure while sleeping. Will followup at [facility] for dental workup. Also being followed by Oncology services and [facility] for metastatic prostate cancer. Thank you and we will follow with you. Christy Bartlett MD
--- NOTE | 2017-06-21 15:50 | RAD ---
HISTORY: sob/hemoptysis COMPARISON: 05/23/2017. FINDINGS: LUNGS: No active pulmonary disease. PLEURA: No significant pleural effusion identified, no pneumothorax apparent. CARDIOVASCULAR: No radiographic findings to suggest acute or significant cardiovascular disease. OSSEOUS STRUCTURES: No significant abnormalities. VISUALIZED UPPER ABDOMEN: Normal. OTHER FINDINGS: None. IMPRESSION: No active disease. No significant interval change compared to the prior examination(s).
== END 2017-06-19 17:14 | disposition home or self-care (01) ==
LOC: ED 22:46 → ERH 06-17 01:54 → 2RNO 06-17 03:38 → 2RSO 06-19 06:22
PROVIDERS: ADMIT Internal Medicine; ATTEND Internal Medicine
DX: J44.1 Chronic obstructive pulmonary disease with (acute) exacerbation (principal); R04.2 Hemoptysis; E11.9 Type 2 diabetes mellitus without complications; C61 Malignant neoplasm of prostate; C79.51 Secondary malignant neoplasm of bone; E03.9 Hypothyroidism, unspecified; G47.33 Obstructive sleep apnea (adult) (pediatric); D64.9 Anemia, unspecified; I27.20 Pulmonary hypertension, unspecified; E78.5 Hyperlipidemia, unspecified; G47.31 Primary central sleep apnea; Z87.891 Personal history of nicotine dependence
CPT/HCPCS: 70450; 71045; 71250; 80053; 82550; 83615; 83880; 84484; 85027; 85610; 85730; 93005; 94640; 96374; 99283; G0378; J2930; J7509

== ENCOUNTER 2017-07-16 09:28 | Inpatient (IN) | payer MEDICARE, MEDICAID ==
[2017-07-16] MEDS ORDERED: Magnesium Sulfate 1 gm in D5W 1 GM/100 ML BAG IVPB ONE (11:09)
[2017-07-16] MEDS ORDERED: Albuterol-Ipratrop 3 mg / 0.5 (3 ml) UD IH STA (11:09)
--- NOTE | 2017-07-16 11:17 | ED PDOC ---
Arrival/HPI - General Chief Complaint: Cough, Cold, Congestion Time Seen by Provider: 07/16/17 10:20 Historian: Patient - History of Present Illness Narrative History of Present Illness (Text): 07/16/17 10:17 You were treated in the ED today, history of COPD, hypertension, diabetes, hyperlipidemia, anemia, and prostrate cancer, for difficulty breathing, left sided chest discomfort and cough since few days and possible COPD flare up. Otherwise without any nausea/vomiting/headache/dizziness/abdomen pain/numbness/ tingling/loss of limb function/pain with urination or any other complaints. Time/Duration: < week Symptom Onset: Gradual Symptom Course: Unchanged Quality: Aching Activities at Onset: Light Context: Home Past Medical History - Provider Review Nursing Documentation Reviewed: Yes - Infectious Disease Hx of Infectious Diseases: None - Tetanus Immunization Tetanus Immunization: Unknown - Cardiac Hx Cardiac Disorders: Yes Hx Hypertension: Yes - Pulmonary Hx Respiratory Disorders: Yes (R PNEUMOTHORAX WITH CHEST TUBE) Hx Asthma: Yes Hx Chronic Obstructive Pulmonary Disease (COPD): Yes Hx Emphysema: Yes Hx Pneumonia: Yes Hx Sleep Apnea: Yes (using c-pap) - Neurological Hx Neurological Disorder: Yes Hx Dizziness: Yes (VERTIGO) - HEENT Hx HEENT Disorder: Yes (eyeglasses) Hx Cataracts: Yes Hx Glaucoma: Yes - Renal Hx Renal Disorder: No - Endocrine/Metabolic Hx Endocrine Disorders: Yes Hx Diabetes Mellitus Type 2: Yes (DIET CONTROLLED) Hx Hypothyroidism: Yes - Hematological/Oncological Hx Blood Disorders: Yes Hx Anemia: Yes Hx Cancer: Yes (PROSTATE-takes Zytiga) - Integumentary Hx Dermatological Disorder: No - Musculoskeletal/Rheumatological Hx Musculoskeletal Disorders: Yes Hx Arthritis: Yes Hx Falls: Yes Hx Fractures: Yes (HUMERUS, WRIST) Hx Unsteady Gait: Yes - Gastrointestinal Hx Gastrointestinal Disorders: Yes (Constipation takes Colace daily) Hx Gastroesophageal Reflux: Yes - Genitourinary/Gynecological Hx Genitourinary Disorders: Yes (self-catheterization at times) Hx Incontinence: Yes Hx Prostate Problems: Yes (PROSTATE CA) Other/Comment: cystoscopy, after radiation treatments in 2003 pt had 2wf x 3 months and sometimes has to self catherize himself 3-4 times a week - Psychiatric Hx Psychophysiologic Disorder: Yes Hx Anxiety: Yes Hx Substance Use: No - Anesthesia Hx Anesthesia: Yes Hx Anesthesia Reactions: No Hx Malignant Hyperthermia: No Family/Social History - Physician Review Nursing Documentation Reviewed: Yes Family/Social History: No Known Family HX Smoking Status: Former Smoker Hx Alcohol Use: Yes (SOCIAL) Hx Substance Use: No Hx Substance Use Treatment: No Allergies/Home Meds Allergies/Adverse Reactions: Allergies No Known Allergies Allergy (Verified 03/18/17 08:41) Home Medications: Home Meds Medication Instructions Recorded Confirmed Abiraterone Acetate [Zytiga] 1,000 mg PO DAILY 03/18/17 07/16/17 Budesonide/Formoterol Fumarate 2 puff IH BID 03/18/17 07/16/17 [Symbicort 160-4.5 Mcg Inhaler] Fluticasone Nasal [Flonase] 2 spr NS BID PRN 03/18/17 07/16/17 Latanoprost 0.005% Opht [Xalatan 1 drp OU HS 03/18/17 07/16/17 Opht] Levothyroxine [Synthroid] 112 mcg PO DAILY 03/18/17 07/16/17 Aspirin [Ecotrin] 81 mg PO DAILY 06/17/17 07/16/17 Docusate [Colace] 100 mg PO DAILY 06/17/17 07/16/17 Review of Systems - Physician Review All systems were reviewed & negative as marked: Yes - Review of Systems Constitutional: Normal Eyes: Normal ENT: Normal Respiratory: SOB, Cough Cardiovascular: Chest Pain Gastrointestinal: Normal. absent: Diarrhea, Nausea, Vomiting Genitourinary Male: Normal. absent: Dysuria Musculoskeletal: Normal Skin: Normal Neurological: Normal Endocrine: Normal Hemo/Lymphatic: Normal Psychiatric: Normal Physical Exam Vital Signs Reviewed: Yes Vital Signs Temp Pulse Resp BP Pulse Ox 07/16/17 15:22 98 F 75 19 135/75 99 07/16/17 11:40 98 F 67 19 148/75 98 07/16/17 09:35 98.2 F 72 22 151/86 H 91 L Temperature: Afebrile Blood Pressure: Hypertensive Pulse: Regular Respiratory Rate: Normal Appearance: Positive for: Well-Appearing, Non-Toxic, Comfortable Pain Distress: None Mental Status: Positive for: Alert and Oriented X 3 - Systems Exam Head: Present: Atraumatic, Normocephalic Pupils: Present: PERRL Extroacular Muscles: Present: EOMI Conjunctiva: Present: Normal Mouth: Present: Moist Mucous Membranes Neck: Present: Normal Range of Motion Respiratory/Chest: Present: Clear to Auscultation, Good Air Exchange. No: Respiratory Distress, Accessory Muscle Use Cardiovascular: Present: Regular Rate and Rhythm, Normal S1, S2. No: Murmurs Abdomen: No: Tenderness, Distention, Peritoneal Signs Back: Present: Normal Inspection Upper Extremity: Present: Normal Inspection. No: Cyanosis, Edema Lower Extremity: Present: Normal Inspection. No: Edema Neurological: Present: GCS=15, CN II-XII Intact, Speech Normal Skin: Present: Warm, Dry, Normal Color. No: Rashes Psychiatric: Present: Alert, Oriented x 3, Normal Insight, Normal Concentration Medical Decision Making ED Course and Treatment: 07/16/17 10:17 Impression: You were treated in the ED today, history of COPD, hypertension, diabetes, hyperlipidemia, anemia, and prostrate cancer, for difficulty breathing, left sided chest discomfort and cough since few days and possible COPD flare up. Otherwise without any nausea/vomiting/headache/dizziness/abdomen pain/numbness/ tingling/loss of limb function/pain with urination or any other complaints. You were otherwise breathing easily, pink, moist lips, smiling, good strength/ sensation, walking easily, clear lungs, no abdomen tenderness, your vision was such no fever temp 98.2, stable heart rate 72, stable breathing rate 22, oxygen level 91 and on repeat 98% room air, elevated blood pressure 151/86 which we recommend repeat in 2-3 days primary care office to determine further treatment, you have blood tests no infection count 5, stable blood level hemoglobin 10/platelets 136, stable chemistry, heart blood test negative less than 0.01, heart failure negative 181, lactic acid 1.2 negative, urine test large leukocytes but you have no symptoms of discomfort with urination and thus urine culture sent, influenza positive, chest xray radiology Significant bullous emphysematous changes most notably affecting upper lobes right greater than left. Scarring right middle lobe and both lung bases. Diffuse sclerotic bone metastases., ECG normal sinus rhythm, solumedrol, duoneb, magnesium, tamiflu, observation done in the ED with mild improvement but you stated still having symptoms, discussed with Dr. Sheth who stated you can be admitted with consult to Dr. Bartlett and Dr. Boghesian. 07/16/17 12:45 Chest X-ray reviewed by radiologist, shows: FINDINGS: LUNGS: Bullous emphysematous changes are again seen most severely affecting the upper lobes right greater than left. The Biapical bullous changes are again seen scarring changes also noted in the middle lobe regions end both lung bases. PLEURA: No significant pleural effusion identified, no pneumothorax apparent. CARDIOVASCULAR: Normal. OSSEOUS STRUCTURES: Diffuse sclerotic bone metastasis less well seen on this study compared to high- resolution CT chest. VISUALIZED UPPER ABDOMEN: Normal. OTHER FINDINGS: None. IMPRESSION: Significant bullous emphysematous changes most notably affecting upper lobes right greater than left. Scarring right middle lobe and both lung bases. Diffuse sclerotic bone metastases. Reassessment Condition: Re-examined, Improved - Lab Interpretations Lab Results: 07/16/17 11:35 07/16/17 11:35 Lab Results 07/16/17 15:09: Influenza Typ A,B (EIA) Pos for influenza a H 07/16/17 12:10: Urine Color Yellow, Urine Appearance Sl cloudy, Urine pH 6.0, Ur Specific [place] 1.010, Urine Protein Negative, Urine Glucose (UA) Negative, Urine Ketones Negative, Urine Blood Trace-intact H, Urine Nitrate Negative, Urine Bilirubin Negative, Urine Urobilinogen 0.2, Ur Leukocyte Esterase Large H , Urine RBC 0 - 2, Urine WBC Tntc, Ur Epithelial Cells 0 - 2, Urine Bacteria Mod 07/16/17 11:41: pO2 47, VBG pH 7.33, VBG pCO2 52.0, VBG HCO3 27.4, VBG Total CO2 29.0 H, VBG O2 Sat (Calc) 84.2 H, VBG Base Excess 0.6, VBG Potassium 4.5, Glucose 109, Lactate 1.2, FiO2 21.0, Sodium 141.0, Chloride 109.0 H, Venous Blood Potassium 4.5 07/16/17 11:35: Sodium 143, Potassium 3.9, Chloride 109 H, Carbon Dioxide 23, Anion Gap 15, BUN 18, Creatinine 1.0, Est GFR ( Amer) > 60, Est GFR (Non- Af Amer) > 60, Random Glucose 104, Calcium 9.0, Magnesium 2.1, Total Bilirubin 0.8, AST 23, ALT 26, Alkaline Phosphatase 392 H, Lactate Dehydrogenase 677, Total Creatine Kinase 100, Troponin I < 0.01 D, NT-Pro-B Natriuret Pep 181, Total Protein 6.9, Albumin 3.9, Globulin 3.0, Albumin/Globulin Ratio 1.3 07/16/17 11:35: PT 11.9, INR 1.03, APTT 29.7 07/16/17 11:35: WBC 5.0, RBC 3.80, Hgb 10.9 L, Hct 34.3 L, MCV 90.3, MCH 28.7, MCHC 31.8, RDW 14.8 H, Plt Count 136, Gran % 67.0, Lymph % (Auto) 18.3 L, [place] % (Auto) 14.3 H, Eos % (Auto) 0.2 L, Baso % (Auto) 0.2, Gran # 3.36, Lymph # ( Auto) 0.9 L, [place] # (Auto) 0.7 H, Eos # (Auto) 0.0, Baso # (Auto) 0.01 I have reviewed the lab results: Yes - RAD Interpretation Radiology Orders: 07/16/17 10:17 CXR [CHEST PORTABLE] [RAD] Stat Glost Placer: Radiologist - EKG Interpretation Interpreted by ED Physician: Yes (NSR) Type: 12 lead EKG - Medication Orders Current Medication Orders: Discontinued Medications Albuterol/Ipratropium (Duoneb 3 Mg/0.5 Mg (3 Ml) Ud) 3 ml IH STAT STA Stop: 07/16/17 11:10 Last Admin: 07/16/17 12:11 Dose: 3 ml Aspirin (Aspirin) 325 mg PO STAT STA Stop: 07/16/17 11:09 Last Admin: 07/16/17 12:11 Dose: 325 mg Magnesium Sulfate/Dextrose (Magnesium Sulfate 1 Gm/100 Ml D5w) 1 gm in 100 mls @ 100 mls/hr IVPB ONCE ONE Stop: 07/16/17 12:08 Last Admin: 07/16/17 12:12 Dose: 100 mls/hr eMAR Start Stop Document 07/16/17 12:12 GMI (Rec: 07/16/17 12:13 [id number] Intravenous Solution Start Date 07/16/17 Start Time 12:12 End Date 07/16/17 End time 14:00 Total Infusion Time 108 Methylprednisolone (Solu-Medrol) 125 mg IVP STAT STA Stop: 07/16/17 11:10 Last Admin: 07/16/17 12:11 Dose: 125 mg IVP Administration Document 07/16/17 12:11 GMI (Rec: 07/16/17 12:12 GMI [id number]) Charges for Administration # of IVP Administrations 1 - Scribe Statement The provider has reviewed the documentation as recorded by the Scribe Davin Wadsworth. All medical record entries made by the Scribe were at my direction and personally dictated by me. I have reviewed the chart and agree that the record accurately reflects my personal performance of the history, physical exam, medical decision making, and the department course for this patient. I have also personally directed, reviewed, and agree with the discharge instructions and disposition. Disposition/Present on Arrival - Present on Arrival Any Indicators Present on Arrival: No History of DVT/PE: No History of Uncontrolled Diabetes: No Urinary Catheter: No History of Decub. Ulcer: No History Surgical Site Infection Following: None - Disposition Have Diagnosis and Disposition been Completed?: Yes Diagnosis: Chronic obstructive lung disease, Influenza Disposition: HOSPITALIZED Disposition Time: 15:51 Isolation: Airborne Patient Plan: Admission Patient Problems: Current Active Problems Problem Status Onset Chronic obstructive lung disease Acute Condition: STABLE Forms: [employer] (Macedonian)
--- NOTE | 2017-07-16 11:43 | RAD ---
HISTORY: cough COMPARISON: Comparison chest radiograph and CT scan chest both dated . FINDINGS: LUNGS: Bullous emphysematous changes are again seen most severely affecting the upper lobes right greater than left. The Biapical bullous changes are again seen scarring changes also noted in the middle lobe regions end both lung bases. PLEURA: No significant pleural effusion identified, no pneumothorax apparent. CARDIOVASCULAR: Normal. OSSEOUS STRUCTURES: Diffuse sclerotic bone metastasis less well seen on this study compared to high-resolution CT chest. VISUALIZED UPPER ABDOMEN: Normal. OTHER FINDINGS: None. IMPRESSION: Significant bullous emphysematous changes most notably affecting upper lobes right greater than left. Scarring right middle lobe and both lung bases. Diffuse sclerotic bone metastases.
[2017-07-16 11:46] LABS: VENOUS BLOOD GAS BASE EXCESS 0.6 mmol/L (0.0-2.0); VENOUS BLOOD GAS PO2 47 mm/Hg (30-55); VENOUS BLOOD PH 7.33 (7.32-7.43)
[2017-07-16 11:50] LABS: BASO # 0.01 K/mm3 (0.0-2.0); BASO % 0.2 % (0.0-3.0); EOS % 0.2 % (1.5-5.0); GRAN # 3.36 (1.4-6.5); HEMOGLOBIN 10.9 g/dL (14.0-18.0); LYMPH # 0.9 (1.2-3.4); LYMPH % 18.3 % (22.0-35.0); MEAN CELL VOLUME 90.3 fl (80.0-105.0); MEAN CORPUSCULAR HEMOGLOBIN 28.7 pg (25.0-35.0); MEAN CORPUSCULAR HGB CONC 31.8 g/dl (31.0-37.0); MONO # 0.7 (0.1-0.6); MONO % 14.3 % (1.0-6.0); PLATELET COUNT 136 10^3/uL (120.0-450.0); RED CELL DISTRIBUTION WIDTH 14.8 % (11.5-14.5)
[2017-07-16 12:06] LABS: ALB/GLOB RATIO 1.3 (1.1-1.8); ALBUMIN 3.9 g/dL (3.0-4.8); ALT/SGPT 26 U/L (7-56); AST/SGOT 23 U/L (17-59); BLOOD UREA NITROGEN 18 mg/dL (7-21); GFR AFRICAN-AMERICAN > 60; GFR NON-AFRICAN AMERICAN > 60
[2017-07-16 12:12] LABS: INR 1.03 (0.93-1.08); PARTIAL THROMBOPLASTIN TIME 29.7 Seconds (25.1-36.5); PROTHROMBIN TIME 11.9 SECONDS (9.4-12.5)
[2017-07-16 12:15] LABS: B-TYPE NATRIURETIC PEPTIDE 181 pg/mL (0-450); TROPONIN I < 0.01 ng/mL
[2017-07-16 12:25] LABS: URINE BILIRUBIN NEGATIVE (NEGATIVE); URINE BLOOD TRACE-INTACT (NEGATIVE); URINE GLUCOSE (UA) NEGATIVE (NEGATIVE); URINE LEUKOCYTE ESTERASE LARGE Leu/uL (NEGATIVE); URINE PROTEIN NEGATIVE mg/dL (<30 mg/dL); URINE UROBILINOGEN 0.2 E.U./dL (<1 E.U./dL)
[2017-07-16 12:36] LABS: URINE APPEARANCE SL CLOUDY (CLEAR); URINE COLOR YELLOW (YELLOW)
[2017-07-16 12:47] LABS: URINE BACTERIA MOD (NEG); URINE EPITHELIAL CELLS 0 - 2 /hpf (0-5); URINE RBC 0 - 2 /hpf (0-2); URINE WBC TNTC /hpf (0-6)
[2017-07-16 17:51] VITALS: BMI 31.1
[2017-07-16] MEDS ORDERED: Oxymetazoline 0.05% Nasal Spray (30 ml) NS PRN (18:00)
[2017-07-16] MEDS ORDERED: Fluticasone Nasal 50 mcg/Spray NS PRN (18:01)
[2017-07-16] MEDS ORDERED: cefTRIAXone 1 gm 1 GM/100 ML BAG IVPB STA (18:53)
[2017-07-16] MEDS: Albuterol-Ipratrop 3 mg / 0.5 (3 ml) UD IH SCH (20:35)
[2017-07-16] MEDS: Latanoprost 2.5 ml Opht Soln OU SCH (21:33)
[2017-07-17] MEDS: Albuterol-Ipratrop 3 mg / 0.5 (3 ml) UD IH SCH ×4 (02:50→20:39)
[2017-07-17] MEDS: Levothyroxine 112 MCG TAB PO SCH (06:04)
--- NOTE | 2017-07-17 06:28 | HP ---
CHIEF COMPLAINTS: Cough, cold, congestion, fatigue. HISTORY OF PRESENT ILLNESS: Mr. Sam Pantoja, 81-year-old male with history of COPD, hypertension, diabetes mellitus, hypercholesterolemia, anemia, prostate cancer; came with difficulty of breathing, left-sided chest pain and discomfort, coughing since 2 days and having fatigue, possible COPD flare-up also. No nausea, vomiting, diarrhea. No abdominal pain. No numbness. No tingling. No loss of limb function or pain on urination. PAST MEDICAL HISTORY: As above, hypertension; asthma; COPD; emphysema; pneumonia; obstructive sleep apnea, using CPAP at home; cataract; glaucoma; diabetes mellitus; hypothyroidism; anemia, status post blood transfusion; history of prostate cancer, taking Zytiga; arthritis; fall. FAMILY HISTORY: Father and mother, noncontributory. HABITS: Smoking, former smoker. Alcohol socially. Substance abuse, no. ALLERGIES: PATIENT IS NOT ALLERGIC WITH ANY MEDICATION. HOME MEDICATION: Zytiga, Symbicort, Flonase, Synthroid, Ecotrin, Colace. REVIEW OF SYSTEMS: Patient is seen and examined at the bedside in the ER. Looking comfortable. No nausea, vomiting, diarrhea. Feeling fatigued and tired, shortness of breath. Chest pain with coughing. No diarrhea, nausea, or vomiting. No dysuria. Ten-point review of systems conducted negative except above. PHYSICAL EXAMINATION: VITAL SIGNS: Temperature 98.2, pulse 72, respiratory rate 22, blood pressure 160/86, pulse oximetry 91. HEENT: Head: Normocephalic, atraumatic. Eyes: PERRLA. Extraocular muscles intact. Conjunctivae clear. Nose: Patent. NECK: Supple. No carotid bruit. No JVD or thyromegaly. CHEST: Bilaterally symmetrical. HEART: S1 and S2 positive. LUNGS: Wheezing bilaterally. ABDOMEN: Soft. Bowel sounds positive. No organomegaly. EXTREMITIES: No edema. No cyanosis. NEUROLOGICAL: Patient is awake and alert. Moving all 4 extremities. No focal deficits. LABORATORY DATA: White blood cells 5, hemoglobin 10.9, hematocrit 34.3, platelets 136. Sodium 146, potassium 3.9, BUN 18, creatinine 1, glucose 104. ASSESSMENT AND PLAN: Mr. Sam Pantoja, 81-year-old male with anemia, hyperchloremia, came with exacerbation of chronic obstructive lung disease, influenza, history of hypertension, diabetes mellitus, hypercholesterolemia, anemia, prostate cancer, getting Zytiga, history cataract and glaucoma surgery, history asthma, history pneumonia, obstructive sleep apnea syndrome, getting CPAP. We admitted the patient. Tamiflu given. ID consult called. Pulmonary consult called. Ordered all pain medications. Repeat labs. We will follow up. Megan Sheth MD MTDD
--- NOTE | 2017-07-17 07:56 | CARD ---
APPROVED REPORT EKG Measurement Heart [id number] <Conclusion> Normal sinus rhythm Left axis deviation
[2017-07-17] MEDS: Oxymetazoline 0.05% Nasal Spray (30 ml) NS PRN ×2 (09:52→21:41)
[2017-07-17] MEDS: cefTRIAXone 1 gm 1 GM/100 ML BAG IVPB SCH (09:53)
[2017-07-17] MEDS ORDERED: Non Formulary Medication (Budesonide/Formoterol Fumarate [Symbicort 160-4.5 Mcg Inhaler] 2 IH SCH (10:00)
--- NOTE | 2017-07-17 18:51 | CON ---
DATE: 07/17/2017 LOCATION: The patient is in room 260, bed 1. CHIEF COMPLAINT: Generalized aches and pains and weakness. HISTORY OF PRESENT ILLNESS: This is an 81-year-old male with past medical history significant for chronic obstructive lung disease, hypertension, diabetes, hyperlipidemia, anemia, prostate cancer on chemotherapy, who had his influenza vaccine last November; however, he still got the flu in this past year, now returns to the emergency room with flu-like symptoms and explains that the patient has generalized aches and pains, low-grade fevers, cough, congestion, muscle pain, and he was found to have the flu again. PAST MEDICAL HISTORY: Significant for cataracts; glaucoma; chronic obstructive lung disease; asthma; anemia; prostate cancer, he takes Zytiga; hyperlipidemia, hypertension, diabetes; and GERD. PAST SURGICAL HISTORY: Significant for chest tube for right pneumothorax, cystoscopy, and tonsillectomy. ALLERGIES: THE PATIENT HAS NO KNOWN ALLERGIES. MEDICATIONS AT HOME: Include aspirin, Zytiga, Pepcid, and Colace. PHYSICAL EXAMINATION: VITAL SIGNS: The patient's temperature is 97, blood pressure is 130/90, respiratory rate of 22, and the heart rate was as slow as 56, it was up to 67. On examination, his blood pressure is noted . HEENT: Unremarkable. NECK: Supple. LUNGS: Decreased breath sounds. HEART: Normal S1 and S2. ABDOMEN: Soft, nontender. No organomegaly. No rebound, no guarding, no masses. LABORATORY DATA: Reveals a white count of 5000, hemoglobin of 10, platelets of 136. BUN of 18, creatinine of 1. Alkaline phosphatase is 392. Urinalysis is noted to have too numerous wbc's, moderate bacteria, the influenza A is positive. IMAGING STUDIES: The patient had a chest x-ray which reveals significant bullous emphysematous changes and the patient's troponin is negative. ASSESSMENT AND PLAN: This is an 81-year-old male with chronic obstructive lung disease, prostate cancer, diabetes, hypertension, hyperlipidemia, anemia, admitted with influenza A must rule out underlying bacterial pneumonia, also on prostate cancer therapy and Zytiga, and Dr. Sheth's history and physical examination is reviewed. We will treat the patient with p.o. doxycycline, IV ceftriaxone, and Tamiflu and place the patient on influenza isolation. We will check on the blood, urine, and sputum cultures and order a procalcitonin. If workup for bacterial pneumonia is negative, we will discontinue the antibiotics. Once the workup culture results return, we will follow closely with you. This patient was on chemotherapy for prostate cancer. Juan Maldonado MD
--- NOTE | 2017-07-17 19:59 | CP.PCM.PN ---
Subjective - Date & Time of Evaluation Date of Evaluation: 07/17/17 Time of Evaluation: 19:57 - Subjective Subjective: S:Patient was seen at bedside as he had requested Affrin. States that he did not get his Affrin. Received at 9 am., is Q12H . Not due until 10 PM. Complained of sob, nasal congestion. Has no chest pain. Pertinent medical record was reviewed. O: Last Vital Signs 3 Temp 98.1 F 07/17/17 18:00 Pulse 78 07/17/17 18:00 Resp 20 07/17/17 18:00 BP 157/81 H 07/17/17 18:00 Pulse Ox 100 07/17/17 06:00 Sitting in the bed, not in acute distress. LUNGS:Normal breathing pattern. A:Nasal congestion. SOB. COPD. P:Affrin stat instead of later. Objective - Vital Signs/Intake and Output Vital Signs (last 24 hours): Temp Pulse Resp BP Pulse Ox 98.1 F 78 20 157/81 H 100 07/17/17 18:00 07/17/17 18:00 07/17/17 18:00 07/17/17 18:00 07/17/17 06:00 Intake and Output: 07/17/17 07/18/17 18:59 06:59 Intake Total 780 Output Total 800 Balance -20 - Medications Medications: Current Medications Acetaminophen (Tylenol 325mg Tab) 650 mg PO Q4H PRN PRN Reason: pain fever Albuterol/Ipratropium (Duoneb 3 Mg/0.5 Mg (3 Ml) Ud) 3 ml IH [id number] [facility] Last Admin: 07/17/17 13:17 Dose: 3 ml Aspirin (Ecotrin) 81 mg PO DAILY [facility] Last Admin: 07/17/17 09:53 Dose: 81 mg Docusate Sodium (Colace) 100 mg PO DAILY [facility] Last Admin: 07/17/17 09:52 Dose: 100 mg Doxycycline Hyclate (Doryx) 100 mg PO Q12 [facility] PRN Reason: Protocol Last Admin: 07/17/17 09:53 Dose: 100 mg Famotidine (Pepcid) 40 mg PO HS [facility] Last Admin: 07/16/17 21:21 Dose: 40 mg Ferrous Sulfate (Feosol) 324 mg PO WM [facility] Last Admin: 07/17/17 18:18 Dose: 324 mg Fluticasone Propionate (Flonase) 1 actuation NS BID PRN PRN Reason: Sinus symptoms Home Med (Home Med) 2 unit PO 0600 [facility] Last Admin: 07/17/17 06:18 Dose: 2 unit Ceftriaxone Sodium (Rocephin 1 Gram Ivpb) 1 gm in 100 mls @ 100 mls/hr IVPB DAILY [facility] PRN Reason: Protocol Last Admin: 07/17/17 09:53 Dose: 100 mls/hr Latanoprost (Xalatan Opht) 0 ml OU HS [facility] Last Admin: 07/16/17 21:33 Dose: 2.5 ml Levothyroxine Sodium (Synthroid) 112 mcg PO 0600 [facility] Last Admin: 07/17/17 06:04 Dose: 112 mcg Loratadine (Claritin) 10 mg PO DAILY [facility] Last Admin: 07/17/17 09:52 Dose: 10 mg Oseltamivir Phosphate (Tamiflu Cap) 75 mg PO BID [facility] PRN Reason: Protocol Last Admin: 07/17/17 18:18 Dose: 75 mg Oxymetazoline HCl (Afrin 0.05%) 0 ml NS Q12H PRN PRN Reason: Nasal congestion Last Admin: 07/17/17 09:52 Dose: 2 sprays - Labs Labs: PT 11.9 SECONDS (9.4-12.5) 07/16/17 11:35 INR 1.03 (0.93-1.08) 07/16/17 11:35 APTT 29.7 Seconds (25.1-36.5) 07/16/17 11:35
[2017-07-17] MEDS: Latanoprost 2.5 ml Opht Soln OU SCH (21:42)
--- NOTE | 2017-07-17 22:52 | CON ---
DATE: 07/17/2017 PULMONARY CONSULT REFERRING PHYSICIAN: Megan Sheth MD REASON FOR CONSULT: Influenza A infection, exacerbation of chronic lung disease and sleep apnea syndrome. HISTORY OF PRESENT ILLNESS: This is an 81-year-old male well known to me from office and previous admission with multiple medical issue including chronic obstructive lung disease, central and obstructive sleep apnea syndrome, hypertension, diabetes, hyperlipidemia, history of prostate cancer with metastatic disease. He usually follow at [facility] for the cancer treatment, also known to Dr. Nye, comes in with body aches, pain, runny nose, stuffy nose, cough and shortness of breath, found to have influenza A positive. Presently feels little better. No nausea, no vomiting, no diarrhea. PAST MEDICAL HISTORY: Also positive for metastatic prostate cancer, also have arthritis, hypothyroid, diabetes, anemia, and as per history of present illness. ALLERGIES: NONE KNOWN. SOCIAL HISTORY: Former smoker. Denies any alcohol use. FAMILY HISTORY: No significant cardiopulmonary disease reported. MEDICATIONS: He is on Afrin p.r.n. basis, also getting budesonide inhaled twice a day, Claritin 10 mg daily, Colace 100 mg twice a day, doxycycline 100 mg twice a day, DuoNeb every 6 hours, Ecotrin 81 mg daily, ferrous sulfate 324 mg with the meals, Flonase one spray each nostril twice a day p.r.n. Home medications; Pepcid 40 mg daily, Rocephin 1 g daily, Synthroid 112 mcg daily, Tylenol p.r.n., eye drops. REVIEW OF SYSTEMS: Mild headache, rhinitis, cough, shortness of breath. No chest pain. No nausea. No vomiting. No diarrhea. No abdominal pain. Had body aches, trace leg swelling. PHYSICAL EXAMINATION: GENERAL: Lying in the bed, no acute distress. VITAL SIGNS: Temp is 98, heart rate is 67, respiratory rate is 20, blood pressure 156/85, pulse ox 100% on BiPAP. HEENT: Moist mucous membrane. Crowded airway. NECK: Supple. No JVD. LUNGS: Has a scattered rhonchi and wheezing. HEART: S1 and S2. ABDOMEN: Soft, nontender, no organomegaly. EXTREMITIES: Not much edema. NEUROLOGIC: Awake and alert. Follows simple commands. LABORATORY DATA: Shows hemoglobin 10.9, hematocrit 34.3, WBC 5.0, platelet is 136. INR 1.03. PTT is 30. VBG show pH 7.33, pCO2 of 52, O2 of 47. Sodium 143, potassium 2.9, chloride 109, bicarbonate 23, BUN 18, creatinine 1.0, glucose 104, calcium 9, magnesium 2.1, total bili 0.8, AST 23, ALT 26, alk phos is 392. LDH 677. Troponin less than 0.01. Total protein 6.9, albumin 3.9, globulin 3. Serology test positive for influenza A antibodies. Microbiology, blood culture, urine culture, there are no growth. IMAGING STUDIES: Chest x-ray done in ER yesterday shows bolus emphysema changes most notably affecting upper lobes, right greater than the left; scarring right middle lobe and both lungs; diffuse sclerotic bone metastatic disease. IMPRESSION AND PLAN: Influenza A infection, triggering chronic obstructive pulmonary disease, has a cardiomyopathy, central and obstructive sleep apnea syndrome, metastatic prostate cancer, hypothyroid, hypertension and anemia. Pulmonary point of view, he is doing okay. We will discontinue Symbicort, continue DuoNeb every 6 hours. We will start Tamiflu, gastric prophylaxis, deep venous thrombosis prophylaxis, continuous positive airway pressure while sleeping, and fall precaution. Thank you and we will follow with you. Christy Bartlett MD
[2017-07-18] MEDS ORDERED: Benzocaine/Menthol (Cepacol) Lozenge MT PRN (01:29)
[2017-07-18] MEDS: Albuterol-Ipratrop 3 mg / 0.5 (3 ml) UD IH SCH ×5 (02:20→23:48)
[2017-07-18] MEDS: Levothyroxine 112 MCG TAB PO SCH (06:08)
--- NOTE | 2017-07-18 09:09 | PN ---
DATE: 07/17/2017 SUBJECTIVE: Patient is an 81-year-old male. Patient is seen and examined on the bedside, looking comfortable. Eating his dinner. Fever is better. Fatigue is better. No nausea, vomiting, diarrhea. No hematuria or hematochezia. No headache. No dizziness. PHYSICAL EXAMINATION: VITAL SIGNS: Temperature 97, blood pressure 130/90, respiratory rate 22, heart rate 56. HEENT: Head normocephalic, atraumatic. Eyes PERRLA. Extraocular muscles intact. Conjunctivae clear. Nose patent. Mucous membrane moist. NECK: Supple. No carotid bruit. No JVD or thyromegaly. CHEST: Bilaterally symmetrical. HEART: S1 and S2 positive. LUNGS: Clear to auscultation. ABDOMEN: Soft. Bowel sounds present. No organomegaly. EXTREMITIES: No edema. No cyanosis. NEUROLOGICAL: The patient is awake, alert. Moving all 4 extremities. No focal deficit. MEDICATIONS: Aspirin, Claritin, Colace, doxycycline, Duoneb, Ecotrin, ferrous sulfate, Flonase, Pepcid, Rocephin, Synthroid, Tamiflu, Tylenol, LABORATORY DATA: White blood cell 5, hemoglobin 10.9, hematocrit 34.3, platelets 136. Sodium 143, potassium 3.9, BUN 18, creatinine 1, alkaline phosphatase 392, prolactin less than 0.05. ASSESSMENT AND PLAN: Mr. Sam Pantoja is an 81-year-old male with anemia, hyperchloremia, hematuria, urinary tract infection, influenza type A and B is positive. Seen by Dr. Maldonado, Infectious Disease. The patient is getting Tamiflu and is on isolation. History of chronic obstructive lung disease, prostate cancer, getting medication, diabetes mellitus, hypertension, hypercholesterolemia, anemia, rule out pneumonia. For prostate cancer, getting Zytiga. Dr. Maldonado has started p.o. doxycycline, IV ceftriaxone and Tamiflu. Waiting for the culture. If workup for the pneumonia is negative, we will discontinue the antibiotics. The patient was on chemotherapy for prostate cancer. Continue present treatment, keep isolation. I will follow up. Megan Sheth MD [facility] # [id number] YUN
[2017-07-18] MEDS: cefTRIAXone 1 gm 1 GM/100 ML BAG IVPB SCH (09:15)
[2017-07-18] MEDS: Oxymetazoline 0.05% Nasal Spray (30 ml) NS PRN (11:00)
--- NOTE | 2017-07-18 21:53 | PN ---
DATE: 07/18/2017 SUBJECTIVE: The patient is in bed, in no acute distress, nontoxic. PHYSICAL EXAMINATION: VITAL SIGNS: Temperature is 98, blood pressure is 150/80, respiratory rate of 18, heart rate of 69. HEENT: Examination of HEENT is unremarkable. NECK: Supple. LUNGS: Have decreased breath sounds. HEART: Normal S1 and S2. ABDOMEN: Soft. LABORATORY DATA: cultures revealed the blood cultures are negative, urine cultures are negative. Laboratory examination reveals a white count of 5, hemoglobin of 10, platelets of 136. BUN of 18, creatinine of 1, procalcitonin 0.05. Urinalysis is noted. Serology influenza A is positive. Review of orders reveals the patient is on Tamiflu and ceftriaxone. ASSESSMENT AND PLAN: An 81-year-old male who was seen earlier this morning in room 260, bed 1 with chronic obstructive lung disease, prostate cancer, diabetes mellitus, hypertension, hyperlipidemia. Admitted with influenza with negative cultures, negative procalcitonin. We will discontinue the ceftriaxone. Recommend completing 5 days of Tamiflu and today is day #2 of Tamiflu. We will complete 5 days of Tamiflu. Juan Maldonado MD
[2017-07-18] MEDS: Latanoprost 2.5 ml Opht Soln OU SCH (22:20)
[2017-07-19] MEDS: Albuterol-Ipratrop 3 mg / 0.5 (3 ml) UD IH SCH ×2 (01:23→08:32)
--- NOTE | 2017-07-19 02:24 | PN ---
DATE: 07/18/2017 SUBJECTIVE: Patient is an 81-year-old male. Patient is seen and examined on the bedside, looking comfortable. No nausea, vomiting, diarrhea. No hematuria or hematochezia. Fatigueness is better. Feverish is better. Cough and shortness of breath is better. Do not want heart-healthy diet, want regular diet. Length of time discussion done with him. Finally, he said, "give me 2% milk, I cannot have fat-free milk", then I talked to the nurse and gave instructions. PHYSICAL EXAMINATION: VITAL SIGNS: Temperature 98, blood pressure 150/80, respiratory rate 18, heart rate 69. HEENT: Head normocephalic, atraumatic. Eyes PERRLA. Extraocular muscles intact. Conjunctivae clear. Nose patent. NECK: Supple. No carotid bruit. No JVD. No thyromegaly. CHEST: Bilaterally symmetrical. HEART: S1 and S2 positive. LUNGS: Positive wheezing bilaterally. ABDOMEN: Soft. Bowel sounds present. No organomegaly. EXTREMITIES: No edema. No cyanosis. NEUROLOGICAL: The patient is awake, alert. Moving all 4 extremities. No focal deficit. MEDICATIONS: Aspirin, Claritin, Colace, doxycycline, Ecotrin, ferrous sulfate, Flonase, Pepcid, Synthroid, Tamiflu, Tylenol. LABORATORY DATA: White blood cell 5, hemoglobin 10.9, hematocrit 34.3, platelets 136. Sodium 143, potassium 3.9, BUN 18, creatinine 1, alkaline phosphatase 392. ASSESSMENT AND PLAN: Mr. Sam Pantoja is an 81 male with anemia; hyperchloremia; hematuria; urinary tract infection; influenza type A is positive, getting Tamiflu from Dr. Maldonado; rule out pneumonia; exacerbation of chronic obstructive pulmonary disease; history of prostate cancer; chronic obstructive lung disease; diabetes mellitus; hypercholesterolemia; negative prolactin. Dr. Maldonado discontinued the ceftriaxone, recommended completion of 5 days of Tamiflu, today is day #2 of the Tamiflu, we will complete the five days. Gastrointestinal, deep vein thrombosis prophylaxis. Repeat labs. We will follow up. Megan Sheth MD [facility] # [id number]
--- NOTE | 2017-07-19 03:00 | PN ---
DATE: 07/18/2017 PULMONARY PROGRESS NOTE REFERRING PHYSICIAN: Megan Sheth MD. SUBJECTIVE: He is lying in the bed, head at 45 degrees, tolerate his CPAP well, still has cough, developed some wheezing. No nausea, no vomiting, or diarrhea. No leg pain, leg swelling. OBJECTIVE: GENERAL: In no acute distress. VITAL SIGNS: Temperature 98, heart rate 78, respiratory rate is 20, blood pressure 154/85, pulse ox 98% on nasal cannula. HEENT: Moist mucous membrane. Crowded airway. Mallampati score is 4. NECK: Supple. No JVD. LUNGS: Prolonged expiratory phase with some wheezing. HEART: S1 and S2. ABDOMEN: Soft, nontender. No organomegaly. EXTREMITIES: There is no edema. NEUROLOGICAL: Awake and alert. Follows simple command. MEDICATIONS: He is on Afrin p.r.n. basis, Claritin 10 mg at bedtime, Colace 100 mg daily, doxycycline 100 mg twice a day, DuoNeb every 6 hours, Ecotrin 81 mg daily, ferrous sulfate 324 mg with the meals, Flonase one spray each nostril twice a day, Pepcid 40 mg daily, Synthroid 112 mcg daily, Tamiflu 75 mg twice a day, Tylenol p.r.n. LABORATORY DATA: No new lab is available since yesterday. Sputum culture, blood culture are negative. IMPRESSION AND PLAN: Influenza A infection, triggering chronic obstructive lung disease, cardiomyopathy, central and obstructive sleep apnea syndrome, metastatic prostate cancer, hypothyroid, hypertension and anemia. Pulmonary point of view, he has some wheezing and shortness of breath. We will encourage continuous positive airway pressure use. Keep head at 45 degree. Continue Tamiflu, fall precaution. We will add bronchodilator. Thank you and we will follow with you. Christy Bartlett MD
[2017-07-19] MEDS: Levothyroxine 112 MCG TAB PO SCH (05:05)
[2017-07-19 07:53] VITALS: BP 167/87; PULSE 71; RESP 16; TEMP 98.4; O2SAT 100
[2017-07-19] MEDS: Oxymetazoline 0.05% Nasal Spray (30 ml) NS PRN (11:21)
--- NOTE | 2017-07-19 16:25 | CP.PCM.PN ---
Subjective - Date & Time of Evaluation Date of Evaluation: 07/19/17 Time of Evaluation: 11:45 - Subjective Subjective: Patient is starting to feel better, no fevers, no nausea, not short of breath at rest. Objective - Vital Signs/Intake and Output Vital Signs (last 24 hours): Temp Pulse Resp BP Pulse Ox 98.4 F 71 16 167/87 H 100 07/19/17 06:00 07/19/17 06:00 07/19/17 06:00 07/19/17 06:00 07/19/17 06:00 Intake and Output: 07/19/17 07/19/17 06:59 18:59 Intake Total 1020 Balance 1020 - Labs Labs: PT 11.9 SECONDS (9.4-12.5) 07/16/17 11:35 INR 1.03 (0.93-1.08) 07/16/17 11:35 APTT 29.7 Seconds (25.1-36.5) 07/16/17 11:35 - Constitutional Appears: Non-toxic, Chronically Ill - Head Exam Head Exam: NORMAL INSPECTION - ENT Exam ENT Exam: Mucous Membranes Moist - Neck Exam Neck Exam: absent: Lymphadenopathy, Meningismus - Respiratory Exam Respiratory Exam: Decreased Breath Sounds - Cardiovascular Exam Cardiovascular Exam: +S1, +S2 - GI/Abdominal Exam GI & Abdominal Exam: Soft. absent: Tenderness Assessment and Plan - Assessment and Plan (Free Text) Plan: Assessment Influenza A infection with acute COPD exacerbation prostate cancer DM HTN dyslipidemia Plan Continue Tamiflu day 3 of 5 continue Doxycycline and will d/c in the next 24-48 hours will monitor clinically
== END 2017-07-19 13:14 | DRG 191 ==
LOC: ED 09:28 → ERH 15:52 → 2RNO 17:59 → 5RNO 07-18 19:22
PROVIDERS: ADMIT Internal Medicine; ATTEND Internal Medicine
DX: J44.1 Chronic obstructive pulmonary disease with (acute) exacerbation (principal); I42.9 Cardiomyopathy, unspecified; C79.51 Secondary malignant neoplasm of bone; N39.0 Urinary tract infection, site not specified; J10.1 Influenza due to other identified influenza virus with other respiratory manifestations; I10 Essential (primary) hypertension; H40.9 Unspecified glaucoma; G47.33 Obstructive sleep apnea (adult) (pediatric); G47.31 Primary central sleep apnea; C61 Malignant neoplasm of prostate; D64.9 Anemia, unspecified; E03.9 Hypothyroidism, unspecified; E11.9 Type 2 diabetes mellitus without complications; E78.00 Pure hypercholesterolemia, unspecified; E78.5 Hyperlipidemia, unspecified; E87.8 Other disorders of electrolyte and fluid balance, not elsewhere classified; K21.9 Gastro-esophageal reflux disease without esophagitis; Z79.51 Long term (current) use of inhaled steroids; Z79.82 Long term (current) use of aspirin; Z87.01 Personal history of pneumonia (recurrent); Z87.891 Personal history of nicotine dependence

== ENCOUNTER 2017-07-19 13:17 | Inpatient (IN) | payer OTHER, MEDICAID ==
[2017-07-19] MEDS ORDERED: Fluticasone Nasal 50 mcg/Spray NS PRN ×2 (14:49→14:58)
[2017-07-19] MEDS ORDERED: Oxymetazoline 0.05% Nasal Spray (30 ml) NS PRN (14:49)
[2017-07-19] MEDS ORDERED: Albuterol-Ipratrop 3 mg / 0.5 (3 ml) UD IH ONE (16:34)
[2017-07-19 17:26] VITALS: BMI 31.3
[2017-07-19] MEDS ORDERED: Pneumococcal 23-Valent Vaccine IM ONE (17:26)
--- NOTE | 2017-07-19 18:53 | CON ---
DATE: 07/19/2017 PULMONARY CONSULT REFERRING PHYSICIAN: Megan Sheth MD. REASON FOR CONSULT: Chronic obstructive lung disease, sleep apnea syndrome, influenza A infection. HISTORY OF PRESENT ILLNESS: This is an 81-year-old gentleman, well known to me from previous admission in the office, has a known history of obstructive sleep apnea syndrome, obstructive lung disease, metastatic prostate cancer, hypothyroid, diabetes, anemia, who usually follows up at [facility] for his prostate cancer, been on outpatient chemotherapy. Comes in with body aches, pain and cough. Found to have influenza A infection. Started on Tamiflu. Started wheezing and shortness of breath yesterday, so prednisone 20 mg added. Presently feels better. Admitted to to continue care. Also, pretty compliant with the CPAP. PAST MEDICAL HISTORY: As per history of present illness. ALLERGIES: NONE KNOWN. SOCIAL HISTORY: Former smoker. Denies any alcohol use. FAMILY HISTORY: No significant cardiopulmonary disease reported. MEDICATIONS: He is on Afrin p.r.n. basis, Claritin 10 mg daily, Colace 100 mg daily, doxycycline 100 mg twice a day, DuoNeb every 6 hours, Ecotrin 81 mg daily, ferrous sulfate 324 mg with the meals, Flonase 1 spray to each nostril b.i.d. p.r.n., Pepcid 40 mg at bedtime, prednisone 20 mg daily, Rocephin 1 g daily, Synthroid 112 mcg daily, Tamiflu 75 mg daily, Tylenol p.r.n. basis, eye drops. REVIEW OF SYSTEMS: No headache. No rhinitis. Has some cough, shortness of breath. Few wheezing. No nausea, no vomiting. No abdominal pain. No leg pain or leg swelling. PHYSICAL EXAMINATION: VITAL SIGNS: Temperature is 98, heart rate is 71, respiratory rate is 60, blood pressure 167/87, pulse ox 100% on nasal cannula. HEENT: Moist mucous membrane. Crowded airway. NECK: Supple. No JVD. LUNGS: Have a prolonged expiratory phase with wheezing. HEART: S1 and S2. ABDOMEN: Soft, nontender. No organomegaly. EXTREMITIES: There is not much edema. NEUROLOGICAL: Awake, alert. Follows simple command. LABORATORY DATA: Shows hemoglobin 10.9, hematocrit 34.3, WBC 5, platelet count is 136. INR 1.03, PTT is 30. Sodium 143, potassium 3.9, chloride 109, bicarbonate 23, BUN 18, creatinine 1, glucose 106, calcium 9, magnesium 2.1, AST 23, ALT 26, alk phos is 392. Troponin less than 0.01. Albumin is 3.9, procalcitonin less than 0.05. Influenza A is positive. Microbiology: Blood culture, sputum culture have been negative. IMPRESSION AND PLAN: Influenza A infection triggering chronic obstructive lung disease, cardiomyopathy, central and obstructive sleep apnea syndrome, metastatic prostate cancer, hypothyroid, hypertension, anemia. Pulmonary point of view, doing okay. Continue p.o. prednisone, inhaled bronchodilator, antibiotics. Continue Tamiflu. Encourage continuous positive airway pressure use at nighttime. Fall precaution. Thank you and we will follow with you. Christy Bartlett MD
[2017-07-19] MEDS: Benzocaine/Menthol (Cepacol) Lozenge MT PRN (19:45)
[2017-07-19] MEDS: Albuterol-Ipratrop 3 mg / 0.5 (3 ml) UD IH SCH (19:52)
[2017-07-19] MEDS: Latanoprost 2.5 ml Opht Soln OU SCH (21:19)
[2017-07-19] MEDS ORDERED: Latanoprost 2.5 ml Opht Soln OU SCH (22:00)
[2017-07-19] MEDS: Oxymetazoline 0.05% Nasal Spray (30 ml) NS PRN (22:54)
[2017-07-20] MEDS: Albuterol-Ipratrop 3 mg / 0.5 (3 ml) UD IH SCH ×4 (00:59→19:49)
[2017-07-20] MEDS: ABIRATERONE ACETATE 1000 MG PO SCH ×2 (09:00→10:00)
[2017-07-20] MEDS ORDERED: Levothyroxine 112 MCG TAB PO SCH (10:00)
[2017-07-20] MEDS: Benzocaine/Menthol (Cepacol) Lozenge MT PRN ×2 (12:20→19:04)
--- NOTE | 2017-07-20 19:17 | PN ---
DATE: 07/20/2017 PULMONARY PROGRESS NOTE REFERRING PHYSICIAN: Megan Sheth MD SUBJECTIVE: The patient is sitting at the side of the bed. Night was unremarkable. Did well in therapy. Tolerating CPAP well. Breathing is better. Decreased cough, decreased shortness of breath. No nausea. No vomiting. No diarrhea. No leg pain or leg swelling. OBJECTIVE: GENERAL: In no acute distress. VITAL SIGNS: Temperature is 98, heart rate is 80, respiratory rate is 18, blood pressure 147/81, pulse ox is 95% on nasal canula. HEENT: Moist mucous membrane. Crowded airway. Mallampati score is 4. NECK: Supple. No JVD. LUNGS: Have a scattered rhonchi and few wheezing. HEART: S1 and S2. ABDOMEN: Soft, nontender. No organomegaly. EXTREMITIES: Not much edema. NEUROLOGICAL: Awake and alert. Follows simple command. MEDICATIONS: He is on Zytiga 1000 mg daily, Afrin one spray each nostril every 12 hours only p.r.n., Cepacol Lozenges every 12 hours p.r.n., Claritin 10 mg daily, Colace 100 mg daily, DuoNeb every 6 hours [id number], Ecotrin 81 mg daily, ferrous sulfate 325 mg with meals, Flonase one spray each nostril twice a day p.r.n, Norvasc 10 mg daily, Pepcid 40 mg daily, prednisone 20 mg daily, Synthroid 112 mcg daily, Tamiflu 75 mg twice a day and Tylenol p.r.n. LABORATORY DATA: Show blood sugar this morning is 143. IMPRESSION AND PLAN: Influenza A infection and triggered chronic obstructive lung disease, cardiomyopathy and obstructive sleep apnea syndrome, metastatic prostate cancer, hypothyroid, hypertension and anemia. Pulmonary point of view, doing okay. Continue continuous positive airway pressure while sleeping, continue p.o. and inhaled bronchodilator, continue antiviral. Gastric prophylaxis. Fall precaution. Continue therapy. Thank you and we will follow with you. Christy Bartlett MD
[2017-07-20] MEDS: Latanoprost 2.5 ml Opht Soln OU SCH (21:10)
[2017-07-21] MEDS: Albuterol-Ipratrop 3 mg / 0.5 (3 ml) UD IH SCH ×5 (01:03→21:05)
[2017-07-21] MEDS: ABIRATERONE ACETATE 1000 MG PO SCH (05:16)
[2017-07-21] MEDS: Levothyroxine 112 MCG TAB PO SCH (05:16)
[2017-07-21] MEDS ORDERED: ABIRATERONE ACETATE 1000 MG PO SCH ×2 (06:00→07:30)
--- NOTE | 2017-07-21 06:46 | HP ---
CHIEF COMPLAINT: Coughing, shortness of breath, deconditioned. HISTORY OF PRESENT ILLNESS: Mr. Sam Pantoja is an 81-year-old male with a history of obstructive sleep apnea syndrome, COPD, prostate cancer with metastasis, hyperthyroidism, diabetes mellitus, anemia. He is a and getting most of his treatment from [facility], but follows up with me and Dr. Bartlett also, came in via hospital emergency room for fatigue, tired, weakness, came to know that patient has flu. We admitted on the medical floor. Tamiflu given. Consult called with Dr. Maldonado. Patient was in isolation, now got better, transferred to TCU for continuity of treatment and to give physical therapy. The patient getting tapering dose of steroid. Patient is very compliant with CPAP. PAST MEDICAL HISTORY: As per above history of prostate cancer with metastasis, COPD, hypertension, diabetes mellitus, noncompliant. ALLERGIC: PATIENT IS NOT ALLERGIC WITH ANY MEDICATION. SOCIAL HISTORY: Former smoker, denies alcohol and drugs. FAMILY HISTORY: Noncontributory. MEDICATIONS: Reviewed by me. REVIEW OF SYSTEMS: The patient is seen and examined at the bedside, looking comfortable. No nausea, vomiting or diarrhea. No hematuria or hematochezia. No swelling of the legs. No chest pain. No palpitation. No headache. No dizziness. PHYSICAL EXAMINATION: VITAL SIGNS: Temperature is 98.6, pulse is 70, respiratory rate 18, blood pressure 160/80, pulse oximetry 100%. HEENT: Head is normocephalic and atraumatic. Eyes: PERRLA. Extraocular muscles intact. Conjunctivae clear. Nose patent. NECK: Supple. No carotid bruits. No JVD or thyromegaly. CHEST: Bilaterally symmetrical. HEART: S1 and S2 positive. LUNGS: Clear to auscultation. ABDOMEN: Soft, bowel sounds present, no organomegaly. EXTREMITIES: No edema. No cyanosis. NEUROLOGIC: The patient is awake and alert. Moving all four extremities. No focal deficit. LABORATORY DATA: We do not have recent lab today, but I reviewed old labs. Glucose 121, 178, 112, 148. MEDICATIONS: Zytiga, Afrin, Cepacol lozenges, Claritin, Colace, DuoNeb, Norvasc, Pepcid, Synthroid, Tamiflu, and Tylenol. ASSESSMENT AND PLAN: Mr. Sam Pantoja is an 81-year-old male with multiple medical problems, has influenza A infection, chronic obstructive pulmonary disease, cardiomyopathy, obstructive sleep apnea syndrome, metastatic prostate cancer, hyperthyroidism, hypertension, anemia. Pulmonary point of view, patient is doing good. We will continue prednisone on tapering dose, bronchodilators. Continue antibiotics. Continue Tamiflu. Gastrointestinal and deep vein thrombosis. Repeat labs. We will follow up. Megan Sheth MD [facility]
[2017-07-21 07:28] LABS: HEMOGLOBIN 11.2 g/dL (14.0-18.0); MEAN CELL VOLUME 90.8 fl (80.0-105.0); MEAN CORPUSCULAR HEMOGLOBIN 28.6 pg (25.0-35.0); MEAN CORPUSCULAR HGB CONC 31.5 g/dl (31.0-37.0); MEAN PLATELET VOLUME 11.4 fl (7.0-11.0); RBC 3.91 10^6/uL (3.5-6.1); RED CELL DISTRIBUTION WIDTH 14.2 % (11.5-14.5); WHITE BLOOD COUNT 5.9 10^3/ul (4.5-11.0)
[2017-07-21 08:04] LABS: CALCIUM 9.5 mg/dL (8.4-10.5)
[2017-07-21] MEDS: Benzocaine/Menthol (Cepacol) Lozenge MT PRN (13:33)
[2017-07-21] MEDS: Latanoprost 2.5 ml Opht Soln OU SCH (21:13)
--- NOTE | 2017-07-21 21:38 | PN ---
DATE: 07/21/2017 PULMONARY PROGRESS NOTE REFERRING PHYSICIAN: Megan Sheth MD SUBJECTIVE: The patient is participating in therapy. Night was unremarkable. Gets short of breath and wheezing during therapy. No nausea, no vomiting. No diarrhea. No leg pain or leg swelling. OBJECTIVE: GENERAL: In no acute distress. VITAL SIGNS: Temperature is 98, heart rate is 70, respiratory rate is 20, blood pressure 132/84, pulse ox 98% on 2 liters nasal cannula. HEENT: Moist mucous membrane. Crowded airway. Mallampati score is 4. NECK: Supple. No JVD. LUNGS: Have a prolonged expiratory phase with some wheezing. HEART: S1 and S2. ABDOMEN: Soft, nontender. No organomegaly. EXTREMITIES: No edema. NEUROLOGICAL: Awake and alert. Follows simple command. MEDICATIONS He is on Zytiga 1000 mg daily, Afrin nasally p.r.n. basis, Cepacol Lozenges p.r.n., Claritin 10 mg daily, Colace 100 mg daily, DuoNeb every 6 hours, Ecotrin 81 mg daily, ferrous sulfate 324 mg with the meals, Flonase one spray each nostril twice a day, Norvasc 10 mg daily, Pepcid 40 mg daily, prednisone 20 mg daily, Synthroid 112 mcg daily, Tamiflu 75 mg twice a day, Tylenol p.r.n. LABORATORY DATA: Shows hemoglobin 11.2, hematocrit 35.5, WBC 5.9, platelet count is 149. Sodium 144, potassium 4.1, chloride 106, bicarbonate 29, BUN 22, creatinine 1.6. Glucose 145, calcium is 9.5. IMPRESSION AND PLAN: Influenza A infection, also triggered chronic obstructive lung disease, cardiomyopathy, obstructive sleep apnea syndrome, metastatic prostate cancer, hypothyroid, hypertension, anemia, activities of daily living dysfunction. Pulmonary point of view, doing okay. We will continue p.o. and inhaled bronchodilator. Encourage CPAP use, antibiotics. Gastric prophylaxis, deep vein thrombosis prophylaxis. We will recommend the patient to use beta agonist before therapy. Thank you and we will follow with you. Christy Bartlett MD [facility] # [id number]
--- NOTE | 2017-07-21 23:54 | PN ---
DATE: 07/21/2017 SUBJECTIVE: The patient is seen and examined on the bedside, looking comfortable, sitting actually in the dinning henry, eating. No nausea, vomiting or diarrhea. No hematuria or hematochezia. No swelling of the legs. No chest pain. No palpitation. No headache or dizziness. PHYSICAL EXAMINATION: VITAL SIGNS: Temperature 98.6, pulse 70, blood pressure 138/84, respiratory rate of 18. HEENT: Head: Normocephalic, atraumatic. Eyes: PERRLA. Extraocular muscles intact. Conjunctivae clear. Nose: Patent. Mucous membrane moist. NECK: Supple. No carotid bruit. No JVD or thyromegaly. CHEST: Bilaterally symmetrical. HEART: S1 and S2 positive. LUNGS: Clear to auscultation. ABDOMEN: Soft. Bowel sounds positive. No organomegaly. EXTREMITIES: No edema. No cyanosis. NEUROLOGIC: The patient is awake and alert. Moving all 4 extremities. No focal deficits. MEDICATIONS: Cepacol lozenges, Claritin, Colace, albuterol, aspirin, Feosol, Flonase, Norvasc, Pepcid, prednisone, Synthroid, Tamiflu, Tylenol, eyedrops. LABORATORY DATA: White blood cells 5.9, hemoglobin 11.2, hematocrit 35.5, platelets 149. Sodium 144, potassium 4.1, BUN 32, creatinine 1.6, glucose 145. ASSESSMENT AND PLAN: Mr. Sam Pantoja is an 81-year-old male with anemia, renal insufficiency, hyperglycemia, history of chronic obstructive pulmonary disease, obstructive sleep apnea syndrome, has influenza A infection and triggered chronic obstructive lung disease, cardiomyopathy, metastatic prostate cancer, getting treatment from [facility], hypothyroidism, hypertension. Continue positive airway pressure while sleeping, continue p.o. and inhaled bronchodilators. Continue antiviral. Gastric prophylaxis. Fall precautions. Gastrointestinal and deep vein thrombosis prophylaxis. Patient is getting physical therapy. We will follow up. Megan Sheth MD
[2017-07-22] MEDS: Albuterol-Ipratrop 3 mg / 0.5 (3 ml) UD IH SCH ×5 (03:34→19:13)
[2017-07-22] MEDS: ABIRATERONE ACETATE 1000 MG PO SCH (05:32)
[2017-07-22] MEDS: Levothyroxine 112 MCG TAB PO SCH (05:32)
[2017-07-22] MEDS ORDERED: POLYETHYLENE GLYCOL 3350 17 GM/Dose PACKET PO ONE (14:38)
--- NOTE | 2017-07-22 15:23 | PN ---
DATE: 07/22/2017 SUBJECTIVE: The patient is seen and examined at the bedside, looking comfortable. No nausea, vomiting, diarrhea. No hematuria or hematochezia. No swelling of the leg. Coughing is better. Shortness of breath better. Getting exercises, physical therapy. No headache. No dizziness. No fever. No chills. PHYSICAL EXAMINATION: VITAL SIGNS: Temperature 97.9, blood pressure 114/81, respiratory rate 20. HEENT: Head: Normocephalic, atraumatic. Eyes: PERRLA. Extraocular muscles intact. Conjunctivae clear. Nose patent. Mucous membranes moist. NECK: Supple. No carotid bruit. No JVD or thyromegaly. CHEST: Bilaterally symmetrical. HEART: S1 and S2 positive. LUNGS: Clear to auscultation. ABDOMEN: Soft. Bowel sounds present. No organomegaly. EXTREMITIES: No edema. No cyanosis. NEUROLOGICAL: The patient is awake and alert. Moving all 4 extremities. No focal deficits. LABORATORY DATA: We do not have labs today, but I reviewed old labs. MEDICATIONS: Abiraterone Zytiga, Cepacol lozenges, Claritin, Colace, aspirin, Feosol, prednisone, Synthroid, Tamiflu, Tylenol. ASSESSMENT AND PLAN: Mr. Sam Pantoja, 81-year-old male with anemia, renal insufficiency, hyperglycemia. Came with flu. Got treatment with Tamiflu. [employer] is on the case. I appreciated Dr. Bartlett's input. History of chronic obstructive pulmonary disease, sleep apnea syndrome. Asthma is triggered with influenza A, cardiomyopathy, prostate cancer with metastasis, getting treatment from [facility], hypothyroidism, hypertension. Continue positive pressure airway sleeping. Continue p.o. and inhaled bronchodilators. Gastrointestinal and deep venous thrombosis prophylaxis. Repeat labs. We will follow up. Megan Sheth MD
[2017-07-22] MEDS: Latanoprost 2.5 ml Opht Soln OU SCH (21:33)
[2017-07-22] MEDS: Benzocaine/Menthol (Cepacol) Lozenge MT PRN (21:42)
--- NOTE | 2017-07-22 22:37 | PN ---
DATE: 07/22/2017 PULMONARY PROGRESS NOTE REFERRING PHYSICIAN: Dr. Sheth. SUBJECTIVE: He is sitting on the side of the bed. Night was unremarkable. Tolerated CPAP well. Doing well in therapy. No headache. No rhinitis. Cough is better. Wheezing is better. No nausea. No vomiting or diarrhea. No leg pain or leg swelling. PHYSICAL EXAMINATION: GENERAL: In no acute distress. VITAL SIGNS: Temperature is 98, heart rate is 75, respiratory rate is 20, blood pressure 164/86, pulse ox 97% on 2 liters nasal cannula. HEENT: Moist mucous membrane. Crowded airway. Mallampati score is 4. NECK: Supple. No JVD. LUNGS: Have a prolonged expiratory phase with few rhonchi. HEART: S1 and S2. ABDOMEN: Soft, nontender. No organomegaly. EXTREMITIES: No edema. NEUROLOGIC: Awake and alert. Follows simple command. MEDICATIONS: He is on Zytiga 1000 mg daily, Afrin one spray each nostril twice a day p.r.n., Cepacol Lozenges p.r.n., Claritin 10 mg daily, Colace 100 mg daily, DuoNeb every 6 hours [id number], Ecotrin 81 mg daily, ferrous sulfate 324 mg with the meals, Flonase one spray each nostril twice a day, Norvasc 10 mg daily, Pepcid 40 mg at bedtime, prednisone 20 mg daily, Synthroid 112 mcg daily, Tamiflu 75 mg daily, Tylenol p.r.n. LABORATORY DATA: Shows blood sugar this morning was 91. IMPRESSION AND PLAN: Influenza A infection, also triggered chronic obstructive lung disease, cardiomyopathy, obstructive sleep apnea syndrome, metastatic prostate cancer, hypothyroid, hypertension, anemia, activities of daily living dysfunction. We will decrease prednisone to 50 mg daily. We will discontinue Tamiflu. Inhaled bronchodilator. Encourage CPAP use. Fall precaution. Thank you and we will follow with you. Christy Bartlett MD
[2017-07-23] MEDS: Albuterol-Ipratrop 3 mg / 0.5 (3 ml) UD IH SCH ×5 (01:07→23:36)
[2017-07-23] MEDS: Levothyroxine 112 MCG TAB PO SCH (05:43)
[2017-07-23] MEDS: ABIRATERONE ACETATE 1000 MG PO SCH (05:43)
[2017-07-23] MEDS: Benzocaine/Menthol (Cepacol) Lozenge MT PRN (10:15)
--- NOTE | 2017-07-23 10:55 | CP.PCM.PN ---
Subjective - Date & Time of Evaluation Date of Evaluation: 07/23/17 Time of Evaluation: 10:10 - Subjective Subjective: c/o sore throat x 3 weeks, relate h/o rads to neck/thyoroid in past, denies dysphagia Objective - Vital Signs/Intake and Output Vital Signs (last 24 hours): Temp Pulse Resp BP Pulse Ox 98.5 F 73 19 162/88 H 97 07/22/17 16:00 07/23/17 01:15 07/22/17 16:00 07/23/17 10:15 07/22/17 16:00 - Medications Medications: Current Medications Acetaminophen (Tylenol 325mg Tab) 650 mg PO Q4H PRN; Protocol PRN Reason: pain/fever Albuterol/Ipratropium (Duoneb 3 Mg/0.5 Mg (3 Ml) Ud) 3 ml IH [id number] PRN Reason: Protocol Last Admin: 07/23/17 07:26 Dose: 3 ml Amlodipine Besylate (Norvasc) 10 mg PO DAILY [facility], [facility] PRN Reason: Protocol Last Admin: 07/23/17 10:15 Dose: 10 mg Aspirin (Ecotrin) 81 mg PO 0800 [facility] Last Admin: 07/23/17 07:47 Dose: 81 mg Benzocaine/Menthol (Cepacol Sore Throat) 1 eli MT Q2H PRN; Protocol PRN Reason: Sore Throat Last Admin: 07/23/17 10:15 Dose: 1 eli Docusate Sodium (Colace) 100 mg PO DAILY [facility], [facility]1983 Last Admin: 07/23/17 10:15 Dose: 100 mg Famotidine (Pepcid) 40 mg PO HS [facility] Last Admin: 07/22/17 21:32 Dose: 40 mg Ferrous Sulfate (Feosol) 324 mg PO WM [facility] Last Admin: 07/23/17 07:47 Dose: 324 mg Fluticasone Propionate (Flonase) 1 actuation NS BID PRN PRN Reason: Sinus symptoms Latanoprost (Xalatan Opht) 0 ml OU HS [facility] Last Admin: 07/22/17 21:33 Dose: 2.5 ml Levothyroxine Sodium (Synthroid) 112 mcg PO 0600 [facility] Last Admin: 07/23/17 05:43 Dose: 112 mcg Loratadine (Claritin) 10 mg PO DAILY [facility] Last Admin: 07/23/17 10:15 Dose: 10 mg Non-Formulary Medication (Abiraterone Acetate [Zytiga]) 1,000 mg PO 0600 [facility] Last Admin: 07/23/17 05:43 Dose: Not Given Oxymetazoline HCl (Afrin 0.05%) 0 ml NS Q12H PRN PRN Reason: Nasal congestion Last Admin: 07/19/17 22:54 Dose: 3 spray Prednisone (Prednisone Tab) 15 mg PO 0800 [facility] PRN Reason: Protocol Last Admin: 07/23/17 07:47 Dose: 15 mg - Labs Labs: 07/21/17 07:15 07/21/17 07:15 - Neck Exam Neck Exam: Normal Inspection - Respiratory Exam Respiratory Exam: Clear to Ausculation Bilateral, NORMAL BREATHING PATTERN - Cardiovascular Exam Cardiovascular Exam: REGULAR RHYTHM - GI/Abdominal Exam GI & Abdominal Exam: Soft, Normal Bowel Sounds - Extremities Exam Extremities Exam: Normal Inspection - Neurological Exam Neurological Exam: Alert, Awake - Skin Skin Exam: Dry, Warm Assessment and Plan (1) HTN (hypertension) Status: Chronic (2) CA of prostate Status: Chronic (3) COPD with acute exacerbation Status: Chronic - Assessment and Plan (Free Text) Plan: consider thyroid US, Dr. Sheth to resume care of patient in am
[2017-07-23] MEDS: Latanoprost 2.5 ml Opht Soln OU SCH (21:26)
--- NOTE | 2017-07-23 22:25 | PN ---
DATE: 07/23/2017 PULMONARY PROGRESS NOTE: REFERRING PHYSICIAN: Megan Sheth MD. SUBJECTIVE: The patient is sitting side of the bed, watching TV. Night was unremarkable. Feels better. No headaches. No rhinitis. Occasional cough. There is no nausea, no vomiting, no diarrhea. No abdominal pain. Was constipated. Had a stool softer. Did have a bowel movement this afternoon. No leg pain. No leg swelling. OBJECTIVE: GENERAL: In no acute distress. VITAL SIGNS: Temp is 98, heart rate is 67, respiratory rate is 18, blood pressure 162/88, pulse ox is 97% on nasal cannula. HEENT: Moist mucous membranes. Crowded airway. Mallampati score is 4. NECK: Supple. No JVD. LUNGS: Have a prolonged expiratory phase. HEART: S1 and S2. ABDOMEN: Soft, nontender. No organomegaly. EXTREMITIES: There is no edema. NEUROLOGIC: Awake and alert. Follows simple commands. HOME MEDICATIONS: He is on Zytiga, home medication; aspirin p.r.n. basis; Cepacol lozenges every 2 hours p.r.n.; Claritin 10 mg daily; Colace 100 mg daily; DuoNeb every 6 hours; Ecotrin 81 mg daily; ferrous sulfate 324 mg with the meals; Flonase one spray to each nostril twice a day p.r.n.; Norvasc 10 mg daily; Pepcid 40 mg at bedtime; prednisone 50 mg daily; Synthroid 112 mcg daily; Tylenol p.r.n. LABORATORY DATA: Reviewed. It shows blood sugar this morning, 101. IMPRESSION AND PLAN: Influenza infection, also triggered chronic obstructive lung disease, cardiomyopathy, obstructive sleep apnea syndrome, metastatic prostate cancer, hypothyroid, hypertension, anemia, activities of daily living dysfunction. Pulmonary point of view, he is doing very well. We will decrease prednisone to 10 mg daily that is his usual dose as an outpatient, which he is getting with a combination of chemotherapy. Continue inhaled bronchodilator. Sleep apnea precaution. Encouraged CPAP use. Thank you and we will follow with you. Christy Bartlett MD [facility] # [id number]
[2017-07-24] MEDS: Albuterol-Ipratrop 3 mg / 0.5 (3 ml) UD IH SCH ×5 (01:50→23:54)
[2017-07-24] MEDS: Benzocaine/Menthol (Cepacol) Lozenge MT PRN ×2 (02:26→21:51)
[2017-07-24] MEDS: ABIRATERONE ACETATE 1000 MG PO SCH (05:23)
[2017-07-24] MEDS: Levothyroxine 112 MCG TAB PO SCH (05:23)
[2017-07-24] MEDS: Latanoprost 2.5 ml Opht Soln OU SCH (21:42)
--- NOTE | 2017-07-25 01:29 | PN ---
DATE: 07/24/2017 PULMONARY PROGRESS NOTE: REFERRING PHYSICIAN: Megan Sheth MD. SUBJECTIVE: He is sitting side of the bed. Night was unremarkable. Feels okay. Has some postnasal drip, sore throat. No nausea, no vomiting, no diarrhea. No leg pain. No leg swelling. OBJECTIVE: GENERAL: In no acute distress. VITAL SIGNS: Temp is 98, heart rate is 74, respiratory rate is 20, blood pressure 144/87, pulse ox is 97% on 2 liter nasal cannula. HEENT: Moist mucous membranes. Crowded airway. Mallampati score is 4. Nasal mucosa is mildly erythematous. LUNGS: Have a few scattered rhonchi. HEART: S1 and S2. ABDOMEN: Soft, nontender. No organomegaly. EXTREMITIES: There is no edema. NEUROLOGIC: Awake and alert. Follows simple commands. HOME MEDICATIONS: He is on Zytiga 1000 mg daily, this is home medication; Afrin p.r.n. basis; Cepacol lozenges every 2 hours p.r.n.; Claritin 10 mg daily; Colace 100 mg daily; DuoNeb every 6 hours; Ecotrin 81 mg daily; ferrous sulfate 324 mg with the meals; Flonase one spray to each nostril twice a day; 10 mg daily; Pepcid 40 mg at bedtime; prednisone 10 mg daily; Synthroid 112 mcg daily; Tylenol p.r.n. LABORATORY DATA: Reviewed and noted. Blood sugar this morning, 119. IMPRESSION AND PLAN: Status post influenza infection with chronic obstructive pulmonary disease exacerbation, cardiomyopathy, chronic obstructive chronic obstructive lung disease, metastatic prostate cancer, d, hypertension, anemia, seasonal allergy with postnasal drip. Pulmonary point of view, doing okay. Continue antihistamine. Add Singulair 10 mg at bedtime, Flonase twice a day. Continue prednisone to 10. Sleep apnea precaution. Encouraged CPAP use. Thank you and we will follow with you. Christy Bartlett MD
[2017-07-25] MEDS: Albuterol-Ipratrop 3 mg / 0.5 (3 ml) UD IH SCH ×4 (02:03→21:40)
--- NOTE | 2017-07-25 02:40 | PN ---
DATE: 07/24/2017 The patient is an 81-year-old male. SUBJECTIVE: The patient was seen and examined at the bedside, looking comfortable. No nausea, vomiting, or diarrhea. No hematuria or hematochezia. No swelling of the legs. No chest pain or palpitations. No headache or dizziness. PHYSICAL EXAMINATION: VITAL SIGNS: Temperature 98.1, heart rate 67, respiratory rate 18, blood pressure 162/88, pulse oximetry 97% on nasal cannula. HEENT: Head is normocephalic and atraumatic. Eyes; PERRLA. Extraocular muscles are intact. Conjunctivae are clear. Nose is patent. Mucous membranes are moist. NECK: Supple. No carotid bruit, JVD, or thyromegaly. CHEST: Bilaterally symmetrical. HEART: S1 and S2 positive. LUNGS: Clear to auscultation. ABDOMEN: Soft. Bowel sounds positive. No organomegaly. EXTREMITIES: No edema. No cyanosis. NEUROLOGICAL: The patient is awake and alert. Moving all 4 extremities. No focal deficit. MEDICATIONS: Zytiga, Cepacol lozenges, Claritin, Colace, DuoNeb, Ecotrin, ferrous sulfate, Flonase, Norvasc, Pepcid, prednisone, Synthroid, Tylenol. LABORATORY DATA: We do not have recent lab today, but I reviewed old labs. ASSESSMENT AND PLAN: Mr. Sam Pantoja is an 81-year-old male, has influenza infection, triggered to chronic obstructive pulmonary disease; history of cardiomyopathy; obstructive sleep apnea syndrome; metastatic prostate cancer, getting treatment from [facility] with Zytiga; hypothyroidism; hypertension; anemia; and ADL dysfunction. PLAN: Continue current treatment. Getting physical therapy. Gastrointestinal and deep venous thrombosis prophylaxis. Getting tapering dose of prednisone. Encourage CPAP. Sleep apnea precautions. We will follow up. Megan Sheth MD
[2017-07-25] MEDS: ABIRATERONE ACETATE 1000 MG PO SCH (05:43)
[2017-07-25] MEDS: Levothyroxine 112 MCG TAB PO SCH (05:43)
[2017-07-25] MEDS: Oxymetazoline 0.05% Nasal Spray (30 ml) NS PRN (10:09)
[2017-07-25] MEDS: Fluticasone Nasal 50 mcg/Spray NS SCH (10:30)
[2017-07-25] MEDS: Latanoprost 2.5 ml Opht Soln OU SCH (21:09)
--- NOTE | 2017-07-26 00:20 | PN ---
DATE: 07/25/2017 SUBJECTIVE: The patient is 81 years old male. The patient is seen and examined at the bedside, looking comfortable. No nausea, vomiting, or diarrhea. No hematuria or hematochezia. No swelling of the legs. No chest pain. No palpitations. No headache or dizziness. PHYSICAL EXAMINATION: VITAL SIGNS: Temperature 97.7, pulse 83, blood pressure 145/91, respiratory rate 18. HEENT: Head: Normocephalic and atraumatic. Eyes: PERRLA. Extraocular muscles are intact. Conjunctivae are clear. Nose is patent. Mucous membranes are moist. NECK: Supple. No carotid bruit, JVD, or thyromegaly. CHEST: Bilaterally symmetrical. HEART: S1 and S2 positive. LUNGS: Clear to auscultation. ABDOMEN: Soft. Bowel sounds positive. No organomegaly. EXTREMITIES: No edema. No cyanosis. NEUROLOGIC: The patient is awake and alert. Moving all 4 extremities. No focal deficit. MEDICATIONS: Zytiga, Cepacol lozenges, Claritin, Colace, DuoNeb, Ecotrin, ferrous sulfate, Flonase, Norvasc, Pepcid, prednisone, Singulair, Synthroid, and Tylenol. LABORATORY DATA: We do not have recent lab today, but I reviewed old labs. ASSESSMENT AND PLAN: Mr. Sam Pantoja is an 81-year-old male with anemia, uncontrolled diabetes mellitus, status post influenza infection with chronic obstructive lung disease exacerbation, cardiomyopathy, metastatic prostate cancer, hypertension, seasonal allergy with postnasal drip, now complaining about gassy stomach, gastroesophageal reflux disease, dyspepsia. We will continue antihistamine. Dr. Bartlett added Singulair and Flonase. Continue prednisone to 10 mg. Sleep apnea precautions. Encouraged CPAP use. Repeat labs. We will do x-ray of the abdomen. We will follow up. Megan Sheth MD
--- NOTE | 2017-07-26 01:43 | PN ---
DATE: 07/25/2017 PULMONARY PROGRESS NOTE REFERRING PHYSICIAN: Megan Sheth MD SUBJECTIVE: He is sitting on the side of the bed. Night was unremarkable. Doing well in therapy. No headache. No rhinitis. Tolerated CPAP well. No dysuria. No leg pain or leg swelling. OBJECTIVE: GENERAL: In no acute distress. VITAL SIGNS: Temperature is 98, heart rate is 83, respiratory rate is 20, blood pressure 145/91, pulse ox 96% on room air. HEENT: Moist mucous membrane. Crowded airway. Mallampati score is 4. NECK: Supple. No JVD. LUNGS: Have a fair airflow with rhonchi. HEART: S1 and S2. ABDOMEN: Soft, nontender. No organomegaly. EXTREMITIES: No edema. NEUROLOGIC: Awake, alert. Follows simple command. MEDICATIONS: He is on Afrin nasally twice a day p.r.n., Cepacol lozenges every 2 hours p.r.n., Claritin 10 mg daily, Colace 100 mg twice a day, DuoNeb every 6 hours, Ecotrin 81 mg daily, ferrous sulfate 324 mg with the meals, Flonase 1 spray to each nostril twice a day, Norvasc 10 mg daily, Pepcid 40 mg daily, prednisone 10 mg daily, Singulair 10 mg daily, Synthroid 112 mcg daily, Tylenol p.r.n. LABORATORY DATA: Shows blood sugar this morning 134. IMPRESSION AND PLAN: Status post influenza infection with exacerbation of chronic obstructive lung disease, cardiomyopathy, chronic obstructive lung disease, metastatic prostate cancer, hypertension, anemia, seasonal allergy with sinusitis and postnasal drip. Pulmonary point of view, doing okay. Encourage CPAP use, p.o. and inhaled bronchodilator. Gastric prophylaxis. Deep venous thrombosis prophylaxis. Continue therapy. Thank you and we will follow with you. Christy Bartlett MD
[2017-07-26] MEDS: Albuterol-Ipratrop 3 mg / 0.5 (3 ml) UD IH SCH ×4 (02:23→20:30)
[2017-07-26] MEDS: Levothyroxine 112 MCG TAB PO SCH (05:16)
[2017-07-26] MEDS: ABIRATERONE ACETATE 1000 MG PO SCH (05:17)
[2017-07-26] MEDS: Fluticasone Nasal 50 mcg/Spray NS SCH ×2 (10:07→17:06)
--- NOTE | 2017-07-26 15:03 | PN ---
DATE: 07/26/2017 PULMONARY PROGRESS NOTE REFERRING PHYSICIAN: Megan Sheth MD. SUBJECTIVE: The patient is sitting up in a chair. Night was unremarkable. Tolerated CPAP well. Has a decreased postnasal drip and cough. No nausea. No vomiting. No diarrhea, leg pain, leg swelling. OBJECTIVE: GENERAL: In no acute distress. VITAL SIGNS: Temperature is 98, heart rate is 83, respiratory rate is 18, blood pressure 132/84, pulse ox 96% on nasal cannula. HEENT: Moist mucous membrane. Crowded airway. NECK: Supple. No JVD. LUNGS: Have scattered rhonchi. HEART: S1 and S2. ABDOMEN: Soft and nontender. No organomegaly. EXTREMITIES: No edema. NEUROLOGICAL: Awake and alert. Follows simple command. LABORATORY DATA: Reviewed. Blood sugar this morning is 96. MEDICATIONS: He is on Afrin 1 spray each nostril twice a day p.r.n., Cepacol lozenges every 2 hours p.r.n., Claritin 10 mg daily, Colace 100 mg daily, albuterol/Atrovent nebulizer every 6 hours, Ecotrin 81 mg daily, ferrous sulfate 324 mg with the meals, Flonase 1 spray to each nostril twice a day, MiraLax 17 g twice a day, Norvasc 10 mg daily, Pepcid 20 mg at bedtime, prednisone 10 mg daily, Singulair 10 mg daily, Synthroid 112 mcg daily, Tylenol p.r.n. IMPRESSION AND PLAN: Status post influenza infection with exacerbation of chronic obstructive lung disease, cardiomyopathy, chronic obstructive lung disease, metastatic prostate cancer, hypertension, anemia, seasonal allergy with sinusitis. Pulmonary point of view, encourage CPAP use. Continue p.o. and inhaled bronchodilator. Continue Singulair, antihistamine, nasal steroids. Gastric prophylaxis. Deep venous thrombosis prophylaxis. Thank you and we will follow with you. Christy Bartlett MD
[2017-07-26] MEDS: POLYETHYLENE GLYCOL 3350 17 GM/Dose PACKET PO SCH (17:05)
[2017-07-26] MEDS: Latanoprost 2.5 ml Opht Soln OU SCH (21:08)
[2017-07-27] MEDS: Albuterol-Ipratrop 3 mg / 0.5 (3 ml) UD IH SCH ×4 (02:55→20:30)
--- NOTE | 2017-07-27 04:24 | PN ---
DATE: 07/26/2017 SUBJECTIVE: Patient is an 81-year-old male. Patient was seen and examined at the bedside on 07/26/2017, looking comfortable. No nausea, vomiting, or diarrhea. No hematuria or hematochezia. No swelling of the legs. No chest pain. No palpitation. No headache or dizziness. PHYSICAL EXAMINATION: VITAL SIGNS: Temperature 98, heart rate 63, respiratory rate 18, blood pressure 130/80, pulse oximetry 96% on room air. HEENT: Head: Normocephalic, atraumatic. Eyes: PERRLA. Extraocular muscles intact. Conjunctivae clear. Nose: Patent. Mucous membrane moist. NECK: Supple. No carotid bruit, JVD, or thyromegaly. CHEST: Bilaterally symmetrical. HEART: S1 and S2 positive. LUNGS: Clear to auscultation. ABDOMEN: Soft. Bowel sounds present. No organomegaly. EXTREMITIES: No edema. No cyanosis. NEUROLOGIC: Patient is awake and alert. Moving all four extremities. No focal deficit. LABORATORY DATA: We do not have recent lab today, but I reviewed old labs. MEDICATIONS: Afrin, Cepacol lozenges, Claritin, Colace, albuterol, Ecotrin, ferrous sulfate, Flonase, Norvasc, Pepcid, prednisone, Singulair, and Synthroid. ASSESSMENT AND PLAN: Mr. Sam Pantoja is an 81-year-old male with multiple medical problems, status post influenza infection with exacerbation of chronic obstructive lung disease, cardiomyopathy, history of asthma, history of prostate cancer with metastasis, getting treatment from [facility], chronic obstructive lung disease, hypertension, anemia, seasonal allergies with sinusitis. [employer] is on the case. Encouraged CPAP use. Continue present treatment. GI and deep vein thrombosis prophylaxis. Getting physical therapy in the rehab. We will follow up. Megan Sheth MD
[2017-07-27] MEDS: ABIRATERONE ACETATE 1000 MG PO SCH (05:24)
[2017-07-27] MEDS: Levothyroxine 112 MCG TAB PO SCH (05:25)
[2017-07-27 08:34] VITALS: RESP 18
[2017-07-27] MEDS: Fluticasone Nasal 50 mcg/Spray NS SCH ×2 (09:58→09:59)
[2017-07-27] MEDS: POLYETHYLENE GLYCOL 3350 17 GM/Dose PACKET PO SCH ×2 (10:00→17:31)
[2017-07-27] MEDS ORDERED: Magnesium Citrate Oral SOL (300 ml) PO ONE (17:11)
--- NOTE | 2017-07-27 20:29 | PN ---
DATE: 07/27/2017 PULMONARY PROGRESS NOTE REFERRING PHYSICIAN: Megan Sheth MD SUBJECTIVE: He is out of bed to chair. Night was unremarkable. Doing well in therapy. No headache. No rhinitis. Cough is better. Tolerated CPAP well. No nausea, no vomiting. Has a constipation. No leg swelling. OBJECTIVE: GENERAL: In no distress. VITAL SIGNS: Temperature is 98, heart rate is 75, respiratory rate is 18, blood pressure 159/76, pulse ox 100% on 2 liters nasal cannula. HEENT: Moist mucous membranes. Crowded airway. NECK: Supple. No JVD. LUNGS: Have a few scattered rhonchi, overall fair airflow. HEART: S1 and S2. ABDOMEN: Soft, nontender. No organomegaly. EXTREMITIES: No edema. NEUROLOGIC: Awake and alert. Follows simple command. MEDICATIONS: He is on Afrin one spray each nostril twice a day only p.r.n., Cepacol lozenges every 2 hours p.r.n., Claritin 10 mg daily, Colace 100 mg twice a day, DuoNeb every 6 hours [id number], Ecotrin 81 mg daily, ferrous sulfate 324 mg with the meals, Flonase one spray each nostril twice a day, MiraLax 17 g twice a day, Norvasc 10 mg daily, Pepcid 20 mg daily, prednisone 10 mg daily, Singulair 10 mg daily, Synthroid 112 mcg daily, Tylenol p.r.n. LABORATORY DATA: Reviewed. Blood sugar this morning is 96. IMPRESSION AND PLAN: Status post influenza with chronic obstructive pulmonary disease exacerbation, cardiomyopathy, chronic obstructive lung disease, metastatic prostate cancer, hypertension, anemia, seasonal allergies and sinusitis, constipated. Spoke to nursing staff. May continue p.o. and inhaled bronchodilator. Encourage CPAP use, stool softener. Fall precaution. Continue therapy. Thank you and we will follow with you. Christy Bartlett MD
[2017-07-27] MEDS: Latanoprost 2.5 ml Opht Soln OU SCH (21:23)
[2017-07-28] MEDS: Albuterol-Ipratrop 3 mg / 0.5 (3 ml) UD IH SCH ×2 (01:50→07:12)
[2017-07-28] MEDS: Levothyroxine 112 MCG TAB PO SCH (05:24)
[2017-07-28] MEDS: ABIRATERONE ACETATE 1000 MG PO SCH (05:24)
[2017-07-28] MEDS: Fluticasone Nasal 50 mcg/Spray NS SCH ×2 (09:49→09:50)
[2017-07-28] MEDS: POLYETHYLENE GLYCOL 3350 17 GM/Dose PACKET PO SCH (09:50)
--- NOTE | 2017-07-28 11:20 | RAD ---
HISTORY: abdominal cramps COMPARISON: No prior. FINDINGS: BOWEL: Multiple dilated small bowel loops are seen consistent with ileus or partial obstruction BONES: Normal. OTHER FINDINGS: None. IMPRESSION: Multiple dilated small bowel loops are seen consistent with ileus or partial obstruction
[2017-07-28] MEDS ORDERED: Dextrose 5%/0.45% NS 1,000 ML IV SCH (12:15)
[2017-07-28 16:57] VITALS: BP 161/79; PULSE 74; TEMP 98.9; O2SAT 97
--- NOTE | 2017-07-28 22:39 | PN ---
DATE: 07/28/2017 PULMONARY PROGRESS NOTE REFERRING PHYSICIAN: Megan Sheth MD SUBJECTIVE: The patient is sitting on the reclining chair, having some trouble since last night with abdominal discomfort, constipated; moves some bowel movements but still seems like obstructed. No headache. No rhinitis. Mild cough. No nausea. No leg pain or leg swelling. OBJECTIVE: GENERAL: In no acute distress. VITAL SIGNS: Temperature is 98, heart rate 74, respiratory rate is 18, blood pressure 161/79, pulse ox 97% on room air. HEENT: Moist mucous membranes. Crowded airway. Mallampati score is 4. NECK: Supple. No JVD. LUNGS: Fair airflow with rhonchi. HEART: S1 and S2. ABDOMEN: Distended. Decreased bowel sounds. Mild tenderness.. EXTREMITIES: There is no edema. NEUROLOGICAL: Awake and alert. Follows simple commands. MEDICATIONS: He is on Afrin every 12 hours p.r.n., Cepacol lozenges every 2 hours p.r.n., Claritin 10 mg daily, Colace 100 mg daily, IV fluids, D5 half-normal saline 60 mL per hour, DuoNeb every 6 hours, Ecotrin 81 mg daily, ferrous sulfate 324 mg with meals, Flonase one spray to each nostril twice a day, MiraLax 17 g twice a day, Norvasc 10 mg daily, Pepcid 20 mg was given, prednisone 10 mg daily, Synthroid 112 mcg daily, Tylenol p.r.n. LABORATORY DATA: Shows no lab is available since yesterday. Has abdominal x-ray done this morning, shows multiple dilated small bowel loop seen consistent with ileus or partial obstruction. IMPRESSION AND PLAN: Status post influenza infection with exacerbation of chronic lung disease, which is much improved now. Has cardiomyopathy, chronic obstructive lung disease, metastatic prostate cancer, hypertension, anemia, seasonal allergies, history of sinusitis, now has a ileus versus partial small bowel obstruction. He did move bowels last night with very hard stool, so patient going to ER. . Pulmonary point of view, doing well. Continue bronchodilator. Keep head at 45 degrees. Sleep apnea precaution. Encouraged continuous positive airway pressure use. May need CT of the abdomen. Continue stool softener and laxative. Thank you and we will follow with you. Christy Bartlett MD [facility] # [id number]
== END 2017-07-28 14:00 | disposition short-term general hospital (02) | DRG 194 ==
LOC: TRCU 13:17
PROVIDERS: ADMIT Internal Medicine; ATTEND Internal Medicine
PROC: F07Z9ZZ Gait Training/Functional Ambulation Treatment (ICD-10-PCS; principal; 2017-07-20)
PROC: F07M6ZZ Therapeutic Exercise Treatment of Musculoskeletal System - Whole Body (ICD-10-PCS; 2017-07-20)
PROC: F08Z1ZZ Dressing Techniques Treatment (ICD-10-PCS; 2017-07-20)
PROC: F08Z2ZZ Grooming/Personal Hygiene Treatment (ICD-10-PCS; 2017-07-20)
PROC: F08Z0ZZ Bathing/Showering Techniques Treatment (ICD-10-PCS; 2017-07-20)
PROC: F08Z4ZZ Home Management Treatment (ICD-10-PCS; 2017-07-20)
DX: J10.1 Influenza due to other identified influenza virus with other respiratory manifestations (principal); J44.1 Chronic obstructive pulmonary disease with (acute) exacerbation; I42.9 Cardiomyopathy, unspecified; K56.7 Ileus, unspecified; K56.600 Partial intestinal obstruction, unspecified as to cause; I10 Essential (primary) hypertension; E11.65 Type 2 diabetes mellitus with hyperglycemia; E05.90 Thyrotoxicosis, unspecified without thyrotoxic crisis or storm; D64.9 Anemia, unspecified; E03.9 Hypothyroidism, unspecified; Z85.46 Personal history of malignant neoplasm of prostate; G47.31 Primary central sleep apnea; K21.9 Gastro-esophageal reflux disease without esophagitis; K59.00 Constipation, unspecified; N28.9 Disorder of kidney and ureter, unspecified; Z79.899 Other long term (current) drug therapy; Z87.891 Personal history of nicotine dependence; Z91.19 Patient's noncompliance with other medical treatment and regimen

== ENCOUNTER 2017-07-28 13:59 | Inpatient (IN) | payer MEDICARE, MEDICAID ==
[2017-07-28 14:00] VITALS: BMI 31.3
--- NOTE | 2017-07-28 14:49 | ED PDOC ---
Arrival/HPI - General Chief Complaint: Abdominal Pain Time Seen by Provider: 07/28/17 14:36 Historian: Patient - History of Present Illness Narrative History of Present Illness (Text): 07/28/17 14:45 A 81 year old male, with a history of constipation, sent to the emergency department from TCU for progressively worsening abdominal pain and distension over the past 2 days. Patient reports associated intermittent nausea, loss of appetite and decreased bowel movements. Patient states "I feel like I'm ." An xray was obtained earlier today while in TCU which demonstrated concern for obstruction. Patient was transferred to the emergency room for continued observation and assessment. Patient denies any fever, chills, sweats, vomiting; + decreased urination; no chest pain, no palpitations, no shortness of breath or any other complaints. Patient denies any sick contact. pt denied LOC pt is here for further eval pt's without other complaints PMD: Dr. Sheth Waste[employer] Operator: Dr. Segundo Chronometer Adjuster: Dr. Bartlett Time/Duration: Other (2 days) Symptom Onset: Gradual Symptom Course: Worsening Quality: Other Severity Level: Severe Activities at Onset: Rest Context: Other (at TCU rehab) Past Medical History - Provider Review Nursing Documentation Reviewed: Yes - Travel History Have you recently traveled outside [place] w/in the past 3 mons?: No - Past History Past History: No Previous - Infectious Disease Hx of Infectious Diseases: None - Tetanus Immunization Tetanus Immunization: Unknown - Cardiac Hx Cardiac Disorders: Yes Hx Hypertension: Yes - Pulmonary Hx Chronic Obstructive Pulmonary Disease (COPD): Yes - Neurological Hx Neurological Disorder: Yes Hx Dizziness: Yes (VERTIGO) - HEENT Hx HEENT Disorder: Yes (eyeglasses) Hx Cataracts: Yes Hx Glaucoma: Yes - Renal Hx Renal Disorder: No - Endocrine/Metabolic Hx Diabetes Mellitus Type 2: Yes Hx Hypothyroidism: Yes - Hematological/Oncological Hx Blood Disorders: Yes Hx Anemia: Yes Hx Cancer: Yes (PROSTATE-takes Zytiga) - Integumentary Hx Dermatological Disorder: No - Musculoskeletal/Rheumatological Hx Arthritis: Yes - Gastrointestinal Hx Gastrointestinal Disorders: No - Genitourinary/Gynecological Hx Genitourinary Disorders: No (UTI) Hx Reproductive Disorders: Yes (PROSTATE CA) - Psychiatric Hx Psychophysiologic Disorder: Yes Hx Anxiety: Yes Hx Substance Use: No - Anesthesia Hx Anesthesia: Yes Hx Anesthesia Reactions: No Hx Malignant Hyperthermia: No Family/Social History - Physician Review Nursing Documentation Reviewed: Yes Family/Social History: No Known Family HX Smoking Status: Former Smoker Hx Alcohol Use: Yes (social) Hx Substance Use: No Hx Substance Use Treatment: No Allergies/Home Meds Allergies/Adverse Reactions: Allergies No Known Allergies Allergy (Verified 07/19/17 15:04) Home Medications: Home Meds Medication Instructions Recorded Confirmed Abiraterone Acetate [Zytiga] 1,000 mg PO DAILY 03/18/17 07/19/17 Budesonide/Formoterol Fumarate 2 puff IH BID 03/18/17 07/19/17 [Symbicort 160-4.5 Mcg Inhaler] Fluticasone Nasal [Flonase] 2 spr NS BID PRN 03/18/17 07/19/17 Latanoprost 0.005% Opht [Xalatan 1 drp OU HS 03/18/17 07/19/17 Opht] Levothyroxine [Synthroid] 112 mcg PO DAILY 03/18/17 07/19/17 Aspirin [Ecotrin] 81 mg PO DAILY 06/17/17 07/19/17 Docusate [Colace] 100 mg PO DAILY 06/17/17 07/19/17 Review of Systems - Physician Review All systems were reviewed & negative as marked: Yes - Review of Systems Constitutional: absent: Fevers, Night Sweats Eyes: Normal ENT: Normal Respiratory: absent: SOB Cardiovascular: absent: Chest Pain, Palpitations Gastrointestinal: Abdominal Pain, Nausea, Appetite Changes, Other (Abdominal distension, decreased bowel movements). absent: Vomiting Genitourinary Male: absent: Dysuria, Frequency, Hematuria Musculoskeletal: Normal Skin: Normal Neurological: Dizziness. absent: Headache Endocrine: Normal Hemo/Lymphatic: Normal Psychiatric: Normal Physical Exam - Physical Exam Narrative Physical Exam (Text): General: alert/awake, GCS = 15, oriented x 3, resting in bed, uncomfortable, cooperative, interactive; mild distress due to pain Head: NC/AT; mild bi-temporal wasting EYE: PERRLA, EOMI, sclera anicteric, no nystagmus, no photophobia; wearing eye glasses, visual field intact b/l Facial: WNL Oral: uvula/tongue are midline, no exudate/lesions, no drooling/stridor, no dysphonia; poor dentitions; dry oral mucosa noted NECK: intact ROM, no midline tenderness, no nuchal rigidity, no meningeal signs ; no step off Chest: CTA b/l, no w/r/r; no tachypenia, no accessory muscle use noted Chest Wall: no focal tenderness, no gross deformities, no crepitus, no lesions/ rashes noted Cardiac: +S1, +S2, no m/r/r, no tachycardia Abdominal: +BS, soft, well nourished patient; no masses/rebound/guarding/ rigidity; + diffuse mid/lower abd tenderness, fullness; + mild distention noted , + mild tampany, no mendoza's sign, no mcburney's point tenderness Extremities: intact ROM, strength 5/5 grossly intact in all limbs, neurovasc intact b/l; + ambulatory; reflex +2/2; no pitting edema noted b/l BACK: no step off, no midline tenderness, NO crepitus, no gross deformities noted; Intact ROM SKIN: cap refill ~ 1 sec, no ulcerations, no petechiae, no rashes; mild pallor, no skin lesions noted NEURO: CNII-XII WNL, no facial asymmetries, no slurr speech, oriented x 3 NIH stroke scale ~ 0 Psych: normal insight, normal affect; follows command with ease Vital Signs Reviewed: Yes Vital Signs Pulse Resp BP Pulse Ox 07/28/17 18:36 84 18 155/82 H 98 07/28/17 16:05 89 18 169/87 H 98 07/28/17 14:50 83 18 182/90 H 99 07/28/17 14:38 87 99 Temperature: Afebrile Blood Pressure: Hypertensive Pulse: Regular Respiratory Rate: Normal Appearance: Positive for: Well-Appearing, Non-Toxic, Uncomfortable. No: Ill- Appearing Pain Distress: Mild Mental Status: Positive for: Alert and Oriented X 3 - Systems Exam Head: Present: Atraumatic, Normocephalic Medical Decision Making ED Course and Treatment: 07/28/17 14:45 Impression: A 81 year old male with worsening abdominal pain and distension. Patient notes nausea, loss of appetite and decreased bowel movements. Xray done earlier today showed concern for obstruction. r/o obstruction, r/o infection Plan: -- Abdomen and pelvis CT -- Chest xray -- Labs -- Urinalysis -- Pepcid, Morphine, Zofran and IV fluids -- Reassess and disposition Progress Notes: 07/29/17 1700 pt remained uncomfortable pt states his pain is more tolerable with abnl bun/creat results as well as concerning CT results, will recommend adan cath placement; pt will likely be recommended for admission as well 1830 + urinary retention is noted pt felt improvement pt is made aware of his medical results agrees with admission DR sheth contacted, made aware, will admit patient; would like to consult Dr Segundo (GI), and Dr Willoughby (surg) 1910 pt is made aware of his medical results agrees with admission Re-evaluation Time: 18:59 Reassessment Condition: Improving,but remains with symptoms - Critical Care Critical Care Minutes: 30 minutes Critical Care Time: Excluding Proc Time Narrative Critical Care (Text): 07/28/17 19:00 critical care time: 30min, excluding procedure time, excluding time teaching residents/students/mid-level providers; including initial eval/diagnosis, diagnostic interpretation, re-eval, consultations, final disposition - Lab Interpretations Lab Results: 07/28/17 16:36 07/28/17 16:36 Lab Results 07/28/17 16:36: Sodium 142, Chloride 100, Potassium 5.4 H, Carbon Dioxide 30, Anion Gap 17, BUN 34 H, Creatinine 3.0 H, Est GFR ( Amer) 24, Est GFR ( Non-Af Amer) 20, Random Glucose 127 H, Calcium 9.5, Magnesium 2.9 H, Total Bilirubin 0.9, AST 29, ALT 21, Alkaline Phosphatase 341 H, Total Protein 7.8, Albumin 4.3, Globulin 3.5, Albumin/Globulin Ratio 1.2, Lipase 52 07/28/17 16:36: pO2 27 L, VBG pH 7.33, VBG pCO2 60.0, VBG HCO3 31.6 H, VBG Total CO2 33.4 H, VBG O2 Sat (Calc) 54.9, VBG Base Excess 4.0 H, VBG Potassium 5.4 H, Sodium 139.0, Chloride 103.0, Glucose 131 H, Lactate 1.0, FiO2 21.0, Venous Blood Potassium 5.4 H 06/08/18 16:36: PT 11.4, INR 1.00, APTT 30.7 07/28/17 16:36: WBC 8.0 D, RBC 4.00, Hgb 11.4 L, Hct 36.3 L, MCV 90.8, MCH 28.5 , MCHC 31.4, RDW 14.1, Plt Count 157, MPV 11.6 H, Gran % 87.5 H, Lymph % (Auto) 9.4 L, [place] % (Auto) 3.0, Eos % (Auto) 0.0 L, Baso % (Auto) 0.1, Gran # 6.99 H, Lymph # (Auto) 0.8 L, [place] # (Auto) 0.2, Eos # (Auto) 0.0, Baso # (Auto) 0.01 07/28/17 15:36: Urine Color Light yellow, Urine Appearance Sl cloudy, Urine pH 7.0, Ur Specific [place] 1.010, Urine Protein Trace H, Urine Glucose (UA) Negative, Urine Ketones Negative, Urine Blood Large H, Urine Nitrate Negative, Urine Bilirubin Negative, Urine Urobilinogen 0.2, Ur Leukocyte Esterase Large H , Urine RBC Tntc, Urine WBC Tntc, Urine Bacteria Large I have reviewed the lab results: Yes Interpretation: Abnormal lab values (elevated BUN/creat; abnl UA) - RAD Interpretation Narrative RAD Interpretations (Text): 07/28/17 Abdominal X-ray: Creator : Shubham An MD IMPRESSION: Multiple dilated small bowel loops are seen consistent with ileus or partial obstruction. Chest X-ray: Creator : Shubham An MD IMPRESSION: Large bulla in the right upper lobe. No acute findings. 07/28/171929 CT Scan ABD PELVIS W/O PO OR IV CONT Exam Date: 07/28/17 This imaging exam was performed at [facility] EXAM: CT Abdomen and Pelvis Without Intravenous Contrast EXAM DATE/TIME: 07/28/2017 2:55 PM CLINICAL HISTORY: The patient age is 81 years old and is male; Pain and signs and symptoms; Bloating; Abdominal pain; Acute; Additional info: Abd pain, R/O sbo Facility exam id and description: Ct abdpelscon abd pelvis w/o po or iv cont TECHNIQUE: Axial computed tomography images of the abdomen and pelvis without intravenous contrast. All CT scans at this facility use one or more dose reduction techniques, viz.: automated exposure control; ma/kV adjustment per patient size (including targeted exams where dose is matched to indication; i.e. head); or iterative reconstruction technique. Coronal and sagittal reformatted images were created and reviewed. COMPARISON: No relevant prior studies available. FINDINGS: Lung bases: Atelectatic changes are identified the lung bases, right side greater than left. Centrilobular emphysematous changes are visualized within the lungs. Pleural space: There is a minimal right pleural effusion. Mediastinum: There is a small hiatal hernia. ABDOMEN: Liver: A small calcification is visualized within the liver. No hepatic mass is identified. Gallbladder and bile ducts: There is iso-density suggestive of sludge within the gallbladder. Pancreas: There is fatty infiltration/atrophy of the pancreas. Spleen: No splenomegaly. Adrenals: No mass. Kidneys and ureters: There is bilateral hydronephrosis and hydroureter. Significant right perinephric stranding is identified, and pyelonephritis is considered. Additional stranding surrounds the right diaphragmatic jamel. No obstructing calculus is identified within the ureters. At the lower pole of the right kidney, there is a hypodense probable cyst measuring 2.7 x 2.0 cm. Stomach and bowel: There is stranding and fluid which extends from the level of the right kidney inferiorly into the right side of the pelvis. There is stranding of fluid surrounding the duodenum, suggestive of duodenitis. Additional stranding or fluid is seen adjacent to the right hemicolon, and colitis cannot be excluded. There is significant fecal material within the colon. However, no significant colonic wall thickening is visualized. PELVIS: Appendix: No findings to suggest acute appendicitis. Bladder: The bladder is distended. Diverticular or septations are identified involving the lateral aspect of the bladder. No stones. Reproductive: Calcifications are identified within the prostate. ABDOMEN and PELVIS: Intraperitoneal space: No free air. Bones/joints: There is diffuse heterogeneous density of the visualized bone marrow, with both osteolytic and osteoblastic metastatic disease. There is osseous cortical thickening of the left hemipelvis. Soft tissues: There is herniation of fat into each inguinal canal. A fat-containing Bochdalek hernia seen at the posterior right lung base. Vasculature: There is atherosclerotic calcification of the abdominal aorta. Lymph nodes: No enlarged lymph nodes. IMPRESSION: 1. There is bilateral hydronephrosis and hydroureter. Significant right perinephric stranding is identified, and pyelonephritis is considered. 2. There is stranding and fluid which extends from the level of the right kidney inferiorly into the right side of the pelvis. There is stranding of fluid surrounding the duodenum, suggestive of duodenitis. Additional stranding or fluid is seen adjacent to the right hemicolon, and colitis cannot be excluded. 3. There is diffuse heterogeneous density of the visualized bone marrow, consistent with metastatic disease. 4. The bladder is distended. 5. There is a minimal right pleural effusion. 6. Additional CT findings described above. Dictated By: Bobby Moyer MD, MD Dictated Date/Time: 07/28/171951 Signed By: Bobby Gaines MD Date Signed: 1952 Transcribed By: UNRULY Transcribe Date/Time : 07/28/171951 NILDAAT/EMILY Radiology Orders: 07/28/17 14:55 ABD & PELVIS W/O PO OR IV CONT [CT] Stat CHEST PORTABLE [RAD] Stat Chucking Machine Set Up Operator Tool: Radiologist - EKG Interpretation EKG Interpretation (Text): 07/28/17 19:01 NSR at 80 bpm, LAD, no ectopy, left ant fascicular block, non-specific T changes , ABNL EKG; no gross changes compare with old ekg 06/2017 Interpreted by ED Physician: Yes Type: 12 lead EKG Comparison: Similar to previous EKG - Medication Orders Current Medication Orders: Acetaminophen (Tylenol 325mg Tab) 650 mg PO Q4H PRN PRN Reason: pain or fever Albuterol/Ipratropium (Duoneb 3 Mg/0.5 Mg (3 Ml) Ud) 3 ml IH [id number] [facility] Last Admin: 07/29/17 08:12 Dose: 3 ml Amlodipine Besylate (Norvasc) 10 mg PO DAILY [facility] Aspirin (Ecotrin) 81 mg PO 0800 [facility] Benzocaine/Menthol (Cepacol Sore Throat) 1 eli MT Q2H PRN PRN Reason: Sore Throat Docusate Sodium (Colace) 100 mg PO DAILY [facility] Famotidine (Pepcid) 20 mg PO HS [facility] Last Admin: 07/28/17 22:17 Dose: 20 mg Ferrous Sulfate (Feosol) 324 mg PO WM [facility] Fluticasone Propionate (Flonase) 1 actuation NS BID [facility] Latanoprost (Xalatan Opht) 0 ml OU HS [facility] Last Admin: 07/28/17 22:17 Dose: 2.5 ml Levothyroxine Sodium (Synthroid) 112 mcg PO 0600 [facility] Last Admin: 07/29/17 06:13 Dose: 112 mcg Loratadine (Claritin) 10 mg PO DAILY [facility] Montelukast Sodium (Singulair) 10 mg PO HS [facility] Last Admin: 07/28/17 22:17 Dose: 10 mg Non-Formulary Medication (Abiraterone Acetate [Zytiga]) 1,000 mg PO 0600 [facility] Oxymetazoline HCl (Afrin 0.05%) 0 ml NS Q12H PRN PRN Reason: Nasal congestion Polyethylene Glycol (Miralax) 17 gm PO BID [facility] Discontinued Medications Famotidine (Pepcid) 20 mg IVP STAT STA Stop: 07/28/17 14:56 Last Admin: 07/28/17 15:39 Dose: 20 mg IVP Administration Document 07/28/17 15:39 SF (Rec: 07/28/17 15:39 SF [id number]) Charges for Administration # of IVP Administrations 1 Sodium Chloride (Sodium Chloride 0.9%) 1,000 mls @ 100 mls/hr IV .Q10H STA Stop: 07/29/17 00:54 Last Admin: 07/28/17 15:39 Dose: 100 mls/hr eMAR Start Stop Document 07/28/17 15:39 SF (Rec: 07/28/17 15:39 SF [id number]) Intravenous Solution Start Date 07/28/17 Start Time 15:39 End Date 07/28/17 Sodium Chloride (Sodium Chloride 0.9%) 500 mls @ 999 mls/hr IV .Q31M STA Stop: 07/28/17 17:09 Last Admin: 07/28/17 16:40 Dose: 999 mls/hr eMAR Start Stop Document 07/28/17 16:40 SF (Rec: 07/28/17 18:48 SF [id number]) Intravenous Solution Start Date 07/28/17 Start Time 16:40 End Date 07/28/17 End time 17:40 Total Infusion Time 60 Ceftriaxone Sodium (Rocephin 1 Gram Ivpb) 1 gm in 100 mls @ 200 mls/hr IVPB STAT STA PRN Reason: Protocol Stop: 07/28/17 18:35 Last Admin: 07/28/17 18:49 Dose: 200 mls/hr eMAR Start Stop Document 07/28/17 18:49 SF (Rec: 07/28/17 18:49 SF [email or web address]) Intravenous Solution Start Date 07/28/17 Start Time 18:49 End Date 07/28/17 End time 19:20 Total Infusion Time 31 Morphine Sulfate (Morphine) 2 mg IVP STAT STA Stop: 07/28/17 14:56 Last Admin: 07/28/17 15:38 Dose: 2 mg MAR Pain Assessment Document 07/28/17 15:38 SF (Rec: 07/28/17 15:39 SF [id number] Pain Reassessment Is this a pain reassessment? Yes Sleep Is patient sleeping during reassessment? No Presence of Pain Presence of Pain Yes IVP Administration Document 07/28/17 15:38 SF (Rec: 07/28/17 15:39 SF [id number] Charges for Administration # of IVP Administrations 1 Ondansetron HCl (Zofran Inj) 4 mg IVP STAT STA Stop: 07/28/17 14:56 Last Admin: 07/28/17 15:37 Dose: 4 mg IVP Administration Document 07/28/17 15:37 SF (Rec: 07/28/17 15:37 SF [email or web address] Charges for Administration # of IVP Administrations 1 - Scribe Statement The provider has reviewed the documentation as recorded by the Latisha Mock Provider Scribe Attestation: All medical record entries made by the Scribe were at my direction and personally dictated by me. I have reviewed the chart and agree that the record accurately reflects my personal performance of the history, physical exam, medical decision making, and the department course for this patient. I have also personally directed, reviewed, and agree with the discharge instructions and disposition. Disposition/Present on Arrival - Present on Arrival Any Indicators Present on Arrival: No History of DVT/PE: No History of Uncontrolled Diabetes: No Urinary Catheter: No History of Decub. Ulcer: No History Surgical Site Infection Following: None - Disposition Have Diagnosis and Disposition been Completed?: Yes Diagnosis: Acute renal insufficiency, Weakness, Failure to thrive, Urinary retention, Hydronephrosis Disposition: HOSPITALIZED Disposition Time: 18:00 Patient Plan: Admission, Telemetry Patient Problems: Current Active Problems Problem Status Onset Acute renal insufficiency Acute Weakness Acute Failure to thrive Acute Urinary retention Acute Hydronephrosis Acute Condition: STABLE
[2017-07-28] MEDS ORDERED: Morphine 4 mg/ml ISec IVP STA (14:55)
[2017-07-28] MEDS ORDERED: Sodium Chloride 0.9% 1,000 ML IV STA (14:55)
--- NOTE | 2017-07-28 15:31 | RAD ---
HISTORY: abd pain COMPARISON: 07/16/2017 FINDINGS: LUNGS: Large bulla are seen in the right upper lobe PLEURA: No significant pleural effusion identified, no pneumothorax apparent. CARDIOVASCULAR: Normal. OSSEOUS STRUCTURES: No significant abnormalities. VISUALIZED UPPER ABDOMEN: Normal. OTHER FINDINGS: None. IMPRESSION: Large bulla in the right upper lobe. No acute findings
[2017-07-28 15:44] LABS: URINE BILIRUBIN NEGATIVE (NEGATIVE); URINE BLOOD LARGE (NEGATIVE); URINE GLUCOSE (UA) NEGATIVE (NEGATIVE); URINE LEUKOCYTE ESTERASE LARGE Leu/uL (NEGATIVE); URINE PROTEIN TRACE mg/dL (<30 mg/dL); URINE UROBILINOGEN 0.2 E.U./dL (<1 E.U./dL)
[2017-07-28 15:45] LABS: URINE APPEARANCE SL CLOUDY (CLEAR); URINE COLOR LIGHT YELLOW (YELLOW)
[2017-07-28 15:54] LABS: URINE BACTERIA LARGE (NEG); URINE RBC TNTC /hpf (0-2); URINE WBC TNTC /hpf (0-6)
[2017-07-28] MEDS ORDERED: Sodium Chloride 0.9% 500 ML IV STA (16:39)
[2017-07-28 16:48] LABS: VENOUS BLOOD GAS PO2 27 mm/Hg (30-55); VENOUS BLOOD PH 7.33 (7.32-7.43)
[2017-07-28 16:55] LABS: BASO # 0.01 K/mm3 (0.0-2.0); BASO % 0.1 % (0.0-3.0); GRAN # 6.99 (1.4-6.5); GRAN % 87.5 % (50.0-68.0); HEMOGLOBIN 11.4 g/dL (14.0-18.0); LYMPH # 0.8 (1.2-3.4); LYMPH % 9.4 % (22.0-35.0); MEAN CELL VOLUME 90.8 fl (80.0-105.0); MEAN CORPUSCULAR HEMOGLOBIN 28.5 pg (25.0-35.0); MEAN CORPUSCULAR HGB CONC 31.4 g/dl (31.0-37.0); MEAN PLATELET VOLUME 11.6 fl (7.0-11.0); MONO # 0.2 (0.1-0.6); RED CELL DISTRIBUTION WIDTH 14.1 % (11.5-14.5)
[2017-07-28 17:03] LABS: ALB/GLOB RATIO 1.2 (1.1-1.8); ALBUMIN 4.3 g/dL (3.0-4.8); CALCIUM 9.5 mg/dL (8.4-10.5)
[2017-07-28 17:06] LABS: PARTIAL THROMBOPLASTIN TIME 30.7 Seconds (25.1-36.5); PROTHROMBIN TIME 11.4 SECONDS (9.4-12.5)
[2017-07-28] MEDS ORDERED: cefTRIAXone 1 gm 1 GM/100 ML BAG IVPB STA (18:06)
--- NOTE | 2017-07-28 19:52 | CT ---
EXAM: CT Abdomen and Pelvis Without Intravenous Contrast EXAM DATE/TIME: 07/28/2017 2:55 PM CLINICAL HISTORY: The patient age is 81 years old and is male; Pain and signs and symptoms; Bloating; Abdominal pain; Acute; Additional info: Abd pain, R/O sbo Facility exam id and description: Ct abdpelscon abd pelvis w/o po or iv cont TECHNIQUE: Axial computed tomography images of the abdomen and pelvis without intravenous contrast. All CT scans at this facility use one or more dose reduction techniques, viz.: automated exposure control; ma/kV adjustment per patient size (including targeted exams where dose is matched to indication; i.e. head); or iterative reconstruction technique. Coronal and sagittal reformatted images were created and reviewed. COMPARISON: No relevant prior studies available. FINDINGS: Lung bases: Atelectatic changes are identified the lung bases, right side greater than left. Centrilobular emphysematous changes are visualized within the lungs. Pleural space: There is a minimal right pleural effusion. Mediastinum: There is a small hiatal hernia. ABDOMEN: Liver: A small calcification is visualized within the liver. No hepatic mass is identified. Gallbladder and bile ducts: There is iso-density suggestive of sludge within the gallbladder. Pancreas: There is fatty infiltration/atrophy of the pancreas. Spleen: No splenomegaly. Adrenals: No mass. Kidneys and ureters: There is bilateral hydronephrosis and hydroureter. Significant right perinephric stranding is identified, and pyelonephritis is considered. Additional stranding surrounds the right diaphragmatic jamel. No obstructing calculus is identified within the ureters. At the lower pole of the right kidney, there is a hypodense probable cyst measuring 2.7 x 2.0 cm. Stomach and bowel: There is stranding and fluid which extends from the level of the right kidney inferiorly into the right side of the pelvis. There is stranding of fluid surrounding the duodenum, suggestive of duodenitis. Additional stranding or fluid is seen adjacent to the right hemicolon, and colitis cannot be excluded. There is significant fecal material within the colon. However, no significant colonic wall thickening is visualized. PELVIS: Appendix: No findings to suggest acute appendicitis. Bladder: The bladder is distended. Diverticular or septations are identified involving the lateral aspect of the bladder. No stones. Reproductive: Calcifications are identified within the prostate. ABDOMEN and PELVIS: Intraperitoneal space: No free air. Bones/joints: There is diffuse heterogeneous density of the visualized bone marrow, with both osteolytic and osteoblastic metastatic disease. There is osseous cortical thickening of the left hemipelvis. Soft tissues: There is herniation of fat into each inguinal canal. A fat-containing Bochdalek hernia seen at the posterior right lung base. Vasculature: There is atherosclerotic calcification of the abdominal aorta. Lymph nodes: No enlarged lymph nodes. IMPRESSION: 1. There is bilateral hydronephrosis and hydroureter. Significant right perinephric stranding is identified, and pyelonephritis is considered. 2. There is stranding and fluid which extends from the level of the right kidney inferiorly into the right side of the pelvis. There is stranding of fluid surrounding the duodenum, suggestive of duodenitis. Additional stranding or fluid is seen adjacent to the right hemicolon, and colitis cannot be excluded. 3. There is diffuse heterogeneous density of the visualized bone marrow, consistent with metastatic disease. 4. The bladder is distended. 5. There is a minimal right pleural effusion. 6. Additional CT findings described above.
--- NOTE | 2017-07-28 21:42 | CP.PCM.CON ---
<Alida Desouza - Last Filed: 07/28/17 21:41> History of Present Illness - History of Present Illness History of Present Illness: Seen and examined at the bedside earlier in TCU and now in the ER earlier this afternoon, chart reviewed. Request for GI consult is for abdominal cramps. HPI: This is a 81-year-old male with a past medical history of COPD, prostate cancer with metastasis, diabetes mellitus, anemia came into the emergency room with complaints of generalized weakness, fatigue, coughing and SOB treated for flu, on Tamiflu, he is currently in TCU for conditioning. The patient has complained of abdominal cramping, mainly lower abdomen, patient does endorse having history of constipation, does not take any laxatives at home. He was given multiple laxatives yesterday, given Dulcolax suppository, magnesium citrate and has been on MiraLAX. As per nursing staff he has had small amount of bowel movement that are hard, no report of melena or bright red blood per rectum. Today the patient did receive a tap water enema and only had a small amount of stool. Patient denies nausea, vomiting, fever or chills. He does complain of increase abdominal distension. He had an abdominal x-ray earlier today and endorses partial small bowel obstruction vs ileus. Made NPO. The patient had a colonoscopy several years ago, and reported having a polyp. Never had endoscopy. No complaints of dyspepsia or dysphagia. Patient sent to the ER by PCP. Awaiting ct scan abdomen and pelvis. Past medical history: COPD, sleep apnea, prostate cancer with metastasis receiving treatment at [facility], as per nursing staff patient has not had chemotherapy for a while. Hyperthyroidism, diabetes mellitus, anemia Past surgical history, patient denies any cardiac or abdominal surgery Allergies: No known drug allergies Family history: Noncontributory Social history: Former smoker, denies EtOH or illicit drug use Medications: Reviewed as per MAR ROS: Systems review it with positive findings, see HPI Past Patient History - Infectious Disease Hx of Infectious Diseases: None - Tetanus Immunizations Tetanus Immunization: Unknown - Past Social History Smoking Status: Former Smoker - CARDIAC Hx Cardiac Disorders: Yes Hx Hypertension: Yes - PULMONARY Hx Chronic Obstructive Pulmonary Disease (COPD): Yes - NEUROLOGICAL Hx Neurological Disorder: Yes Hx Dizziness: Yes (VERTIGO) - HEENT Hx HEENT Problems: Yes (eyeglasses) Hx Cataracts: Yes Hx Glaucoma: Yes - RENAL Hx Chronic Kidney Disease: No - ENDOCRINE/METABOLIC Hx Diabetes Mellitus Type 2: Yes Hx Hypothyroidism: Yes - HEMATOLOGICAL/ONCOLOGICAL Hx Blood Disorders: Yes Hx Anemia: Yes Hx Cancer: Yes (PROSTATE-takes Zytiga) - INTEGUMENTARY Hx Dermatological Problems: No - MUSCULOSKELETAL/RHEUMATOLOGICAL Hx Arthritis: Yes - GASTROINTESTINAL Hx Gastrointestinal Disorders: No - GENITOURINARY/GYNECOLOGICAL Hx Genitourinary Disorders: No (UTI) Hx Reproductive Disorders: Yes (PROSTATE CA) - PSYCHIATRIC Hx Psychophysiologic Disorder: Yes Hx Anxiety: Yes Hx Substance Use: No - SURGICAL HISTORY Hx Surgeries: Yes (CYSTOSCOPY, TONSILLECTOMY) - ANESTHESIA Hx Anesthesia: Yes Hx Anesthesia Reactions: No Hx Malignant Hyperthermia: No Meds Allergies/Adverse Reactions: Allergies Allergy/AdvReac Type Severity Reaction Status Date / Time No Known Allergies Allergy Verified 07/19/17 15:04 - Medications Medications: Current Medications Sodium Chloride (Sodium Chloride 0.9%) 1,000 mls @ 100 mls/hr IV .Q10H STA Stop: 07/29/17 00:54 Last Admin: 07/28/17 15:39 Dose: 100 mls/hr Physical Exam - Constitutional Appears: No Acute Distress - Head Exam Head Exam: NORMOCEPHALIC - Eye Exam Eye Exam: Normal appearance. absent: Scleral icterus - ENT Exam ENT Exam: Mucous Membranes Moist - Neck Exam Neck exam: Positive for: Normal Inspection - Respiratory Exam Respiratory Exam: NORMAL BREATHING PATTERN. absent: Respiratory Distress - Cardiovascular Exam Cardiovascular Exam: +S1, +S2 - GI/Abdominal Exam GI & Abdominal Exam: Distended, Hypoactive Bowel Sounds, Soft, Tenderness ( lower abdomen, palpable righ groin hernia). absent: Guarding, Organomegaly, Rebound - Extremities Exam Extremities exam: Positive for: pedal pulses present. Negative for: calf tenderness - Neurological Exam Neurological exam: Alert, Oriented x3 - Skin Skin Exam: Dry, Warm Results - Vital Signs Recent Vital Signs: Last Vital Signs Temp Pulse 89 07/28/17 16:05 Resp 18 07/28/17 16:05 BP 169/87 H 07/28/17 16:05 Pulse Ox 98 07/28/17 16:05 - Labs Result Diagrams: 07/28/17 16:36 07/28/17 16:36 Labs: Laboratory Results - last 24 hr 07/28/17 07/28/17 07/28/17 15:36 16:36 16:36 WBC 8.0 D RBC 4.00 Hgb 11.4 L Hct 36.3 L MCV 90.8 MCH 28.5 MCHC 31.4 RDW 14.1 Plt Count 157 MPV 11.6 H Gran % 87.5 H Lymph % (Auto) 9.4 L [place] % (Auto) 3.0 Eos % (Auto) 0.0 L Baso % (Auto) 0.1 Gran # 6.99 H Lymph # (Auto) 0.8 L [place] # (Auto) 0.2 Eos # (Auto) 0.0 Baso # (Auto) 0.01 PT 11.4 INR 1.00 APTT 30.7 pO2 VBG pH VBG pCO2 VBG HCO3 VBG Total CO2 VBG O2 Sat (Calc) VBG Base Excess VBG Potassium Sodium Chloride Glucose Lactate FiO2 Potassium Carbon Dioxide Anion Gap BUN Creatinine Est GFR ( Amer) Est GFR (Non-Af Amer) Random Glucose Calcium Magnesium Total Bilirubin AST ALT Alkaline Phosphatase Total Protein Albumin Globulin Albumin/Globulin Ratio Lipase Venous Blood Potassium Urine Color Light yellow Urine Appearance Sl cloudy Urine pH 7.0 Ur Specific [place] 1.010 Urine Protein Trace H Urine Glucose (UA) Negative Urine Ketones Negative Urine Blood Large H Urine Nitrate Negative Urine Bilirubin Negative Urine Urobilinogen 0.2 Ur Leukocyte Esterase Large H Urine RBC Tntc Urine WBC Tntc Urine Bacteria Large 07/28/17 07/28/17 16:36 16:36 WBC RBC Hgb Hct MCV MCH MCHC RDW Plt Count MPV Gran % Lymph % (Auto) [place] % (Auto) Eos % (Auto) Baso % (Auto) Gran # Lymph # (Auto) [place] # (Auto) Eos # (Auto) Baso # (Auto) PT INR APTT pO2 27 L VBG pH 7.33 VBG pCO2 60.0 VBG HCO3 31.6 H VBG Total CO2 33.4 H VBG O2 Sat (Calc) 54.9 VBG Base Excess 4.0 H VBG Potassium 5.4 H Sodium 139.0 142 Chloride 103.0 100 Glucose 131 H Lactate 1.0 FiO2 21.0 Potassium 5.4 H Carbon Dioxide 30 Anion Gap 17 BUN 34 H Creatinine 3.0 H Est GFR ( Amer) 24 Est GFR (Non-Af Amer) 20 Random Glucose 127 H Calcium 9.5 Magnesium 2.9 H Total Bilirubin 0.9 AST 29 ALT 21 Alkaline Phosphatase 341 H Total Protein 7.8 Albumin 4.3 Globulin 3.5 Albumin/Globulin Ratio 1.2 Lipase 52 Venous Blood Potassium 5.4 H Urine Color Urine Appearance Urine pH Ur Specific [place] Urine Protein Urine Glucose (UA) Urine Ketones Urine Blood Urine Nitrate Urine Bilirubin Urine Urobilinogen Ur Leukocyte Esterase Urine RBC Urine WBC Urine Bacteria Assessment & Plan - Assessment and Plan (Free Text) Assessment: Assessment: Abdominal cramping, may be secondary to constipation Abdominal distention Status post abdominal x-ray reporting partial small bowel obstruction versus ileus Metastatic prostate cancer COPD Diabetes mellitus Anemia History of colon polyps Plan: Currently the patient nothing by mouth, continue IV fluids for now FU ct scan abdomen and pelvis, pending given a dose of Pepcid, in ER Thank you for this consult and for allowing us to participate in your patient's care, further recommendations based upon clinical course. Seen and discussed with Dr. Segundo. <Trista Segundo V - Last Filed: 07/28/17 23:53> Meds - Medications Medications: Current Medications Acetaminophen (Tylenol 325mg Tab) 650 mg PO Q4H PRN PRN Reason: pain or fever Albuterol/Ipratropium (Duoneb 3 Mg/0.5 Mg (3 Ml) Ud) 3 ml IH [id number] KRYS Amlodipine Besylate (Norvasc) 10 mg PO DAILY [facility] Aspirin (Ecotrin) 81 mg PO 0800 KRYS Benzocaine/Menthol (Cepacol Sore Throat) 1 eli MT Q2H PRN PRN Reason: Sore Throat Docusate Sodium (Colace) 100 mg PO DAILY KRYS Famotidine (Pepcid) 20 mg PO HS KRYS Last Admin: 07/28/17 22:17 Dose: 20 mg Ferrous Sulfate (Feosol) 324 mg PO WM [facility] Fluticasone Propionate (Flonase) 1 actuation NS BID KRYS Sodium Chloride (Sodium Chloride 0.9%) 1,000 mls @ 100 mls/hr IV .Q10H STA Stop: 07/29/17 00:54 Last Admin: 07/28/17 15:39 Dose: 100 mls/hr Latanoprost (Xalatan Opht) 0 ml OU HS KRYS Last Admin: 07/28/17 22:17 Dose: 2.5 ml Levothyroxine Sodium (Synthroid) 112 mcg PO 0600 KRYS Loratadine (Claritin) 10 mg PO DAILY KRYS Montelukast Sodium (Singulair) 10 mg PO HS KRYS Last Admin: 07/28/17 22:17 Dose: 10 mg Non-Formulary Medication (Abiraterone Acetate [Zytiga]) 1,000 mg PO 0600 KRYS Oxymetazoline HCl (Afrin 0.05%) 0 ml NS Q12H PRN PRN Reason: Nasal congestion Polyethylene Glycol (Miralax) 17 gm PO BID KRYS Results - Vital Signs Recent Vital Signs: Last Vital Signs Temp Pulse 84 07/28/17 18:36 Resp 18 07/28/17 18:36 BP 155/82 H 07/28/17 18:36 Pulse Ox 98 07/28/17 21:48 - Labs Result Diagrams: 07/28/17 16:36 07/28/17 16:36 Attending/Attestation - Attestation I have personally seen and examined this patient.: Yes I have fully participated in the care of the patient.: Yes I have reviewed all pertinent clinical information: Yes Notes (Text): This is an addendum to GI consult report dictated by Alida Desouza APN.The patient was seen and examined earlier. Medical records, lab studies, imagings were reviewed. Last 24 hours events reviewed. Agreed with the above treatment plan as outlined in Alida Desouza APN's notes with the addition of the following 07/28/17 23:52
[2017-07-28] MEDS ORDERED: Oxymetazoline 0.05% Nasal Spray (30 ml) NS PRN (21:44)
[2017-07-28] MEDS ORDERED: Benzocaine/Menthol (Cepacol) Lozenge MT PRN (21:54)
[2017-07-28] MEDS: Latanoprost 2.5 ml Opht Soln OU SCH (22:17)
[2017-07-29] MEDS: Albuterol-Ipratrop 3 mg / 0.5 (3 ml) UD IH SCH ×4 (01:15→20:00)
[2017-07-29] MEDS: Levothyroxine 112 MCG TAB PO SCH (06:13)
[2017-07-29] MEDS: Fluticasone Nasal 50 mcg/Spray NS SCH ×2 (09:33→17:08)
[2017-07-29] MEDS: POLYETHYLENE GLYCOL 3350 17 GM/Dose PACKET PO SCH ×3 (09:35→17:08)
--- NOTE | 2017-07-29 09:52 | CARD ---
APPROVED REPORT EKG Measurement Heart [id number] <Conclusion> Normal sinus rhythm Left anterior fascicular block PRWP Nonspecific T wave abnormality, new
[2017-07-29] MEDS: Latanoprost 2.5 ml Opht Soln OU SCH (21:49)
[2017-07-30] MEDS: Albuterol-Ipratrop 3 mg / 0.5 (3 ml) UD IH SCH ×5 (01:26→23:54)
--- NOTE | 2017-07-30 04:46 | CON ---
DATE: 07/29/2017 REFERRING PHYSICIAN: Dr. Sheth. REASON FOR CONSULTATIONS: Sleep apnea syndrome, chronic lung disease. HISTORY OF PRESENT ILLNESS: This is an 81-year-old gentleman well known to me from our office and previous admission, has a known history of prostate cancer with metastatic disease on chemotherapy from [facility], also have a chronic obstructive lung disease, obstructive sleep apnea syndrome, hypothyroid, diabetes, anemia, who was originally admitted to acute side of the hospital with influenza A infection with exacerbation of COPD which is treated while he was in TRCU, end up with bad constipation issue with urination, was sent to emergency room where had a CT of the abdomen done which shows bladder outlet obstruction with urinary retention to the extent questionable hydronephrosis and pyelonephritis. Monroe catheter was placed and bladder outlet obstruction were removed with good results. Presently, he is lying in the bed. According to the patient, he usually straight cath himself quite often at least once a day. No hemoptysis or emesis. No hematuria. PAST MEDICAL HISTORY: As per history of present illness. ALLERGIES: None known. SOCIAL HISTORY: Former smoker. Denies any alcohol use. FAMILY HISTORY: No significant cardiopulmonary disease reported. MEDICATIONS: He is on Zytiga at home. He received that medication from [place], does not have it presently. Also uses Afrin p.r.n. basis. Cepacol lozenges every 2 hours p.r.n. He is on Claritin 10 mg daily, Colace 100 mg daily, albuterol/Atrovent nebulizers every 6 hours, Ecotrin 81 mg daily, ferrous sulfate 324 mg with the meals, Flonase one spray to each nostril twice a day, MiraLax 17 g twice a day, also Norvasc 10 mg daily, Pepcid 20 mg at bedtime, Singulair 10 mg daily, Synthroid 112 mcg daily, Tylenol p.r.n. REVIEW OF SYSTEMS: No headache, no rhinitis. No nausea, no vomiting. Mild cough. Abdominal pain is better, has a Monroe catheter. No leg pain or leg swelling. PHYSICAL EXAMINATION: GENERAL: Lying in the bed, no acute distress. VITAL SIGNS: Temperature is 98, heart rate 80, respiratory rate is 20, blood pressure 164/98, pulse of 98% on room air. HEENT: Moist mucous membrane. Crowded airway. NECK: Supple. No JVD. LUNGS: Has fair airflow with rhonchi. HEART: S1 and S2. ABDOMEN: Soft, nontender. No organomegaly. EXTREMITIES: There is no edema. NEUROLOGIC: Awake and alert, follows simple commands. LABORATORY DATA: Shows hemoglobin 11.4, hematocrit 36.3, WBC 8.0, platelet count is 157, BUN 34, creatinine 3.0. IMPRESSION AND PLAN: Bladder outlet obstruction secondary to metastatic prostate cancer causing him renal failure and hydronephrosis requiring Monroe catheter, status post influenza infection with chronic obstructive pulmonary disease exacerbation, cardiomyopathy, chronic obstructive lung disease, hypertension, anemia, has seasonal allergies, sinusitis. For now, continue Monroe catheter until the renal function improves, continue bronchodilator. Keep head at [address] him on CPAP while sleeping, out of bed to chair. Once the renal function is improved, may discontinue Monroe catheter and start bladder scanning in straight catheter if bladder urine is more than 250. Thank you and we will follow with you. Christy Bartlett MD
--- NOTE | 2017-07-30 05:40 | HP ---
DATE OF EXAM: 07/29/2017 CHIEF COMPLAINT: Abdominal pain. HISTORY OF PRESENT ILLNESS: Mr. Sam Pantoja is an 81-year-old male with a history of constipation, started abdominal pain in the TCU, then was sent to emergency room because the pain was progressively worsening and abdomen was getting distension over the past 2 days. Patient reports associated intermittent nauseousness, loss of appetite and decreased bowel movements. Patient states that "I feel like I am " and x-ray was obtained earlier today while in TCU, which demonstrates concern of obstruction. Patient was transferred to the emergency room for continued observation and assessment and treatment. Patient denies any fever or chills. Positive decrease in the urine as per patient. Normally, patient is doing a self catheterization at home to take out residual urine, but over here he never mentioned about that. No shortness of breath. No palpitation right now. No loss of consciousness. PAST MEDICAL HISTORY: As above. Hypertension, COPD, vertigo, cataracts, glaucoma, diabetes mellitus type 2, anemia, prostate cancer with metastasis, anxiety. FAMILY HISTORY: Father and mother noncontributory. HABITS: Former smoker. Alcohol, yes. Substance abuse, no. ALLERGIES: PATIENT IS NOT ALLERGIC WITH ANY MEDICATIONS. HOME MEDICATIONS: Zytiga, Symbicort, Flonase, levothyroxine, aspirin, and docusate. REVIEW OF SYSTEMS: Patient seen and examined on the bedside in his room, looking comfortable. Abdominal pain is better. No nausea, vomiting, or diarrhea. No headache. No dizziness. No chest pain. No palpitation. No fever. No chills. PHYSICAL EXAMINATION: VITAL SIGNS: Temperature 97.9, pulse 57, blood pressure 147/88, respiratory rate 21. HEENT: Head: Normocephalic, atraumatic. Eyes: PERRLA. Extraocular muscles intact. Conjunctivae clear. Nose: Patent. Mucous membrane moist. NECK: Supple. No carotid bruit. No JVD or thyromegaly. CHEST: Bilaterally symmetrical. HEART: S1 and S2 positive. LUNGS: Clear to auscultation. ABDOMEN: Soft. Bowel sounds present. No organomegaly. EXTREMITIES: No edema. No cyanosis. NEUROLOGIC: Patient is awake and alert. Moving all four extremities. No focal deficit. MEDICATIONS: Cepacol lozenges, Claritin, Colace, DuoNeb, Ecotrin, iron sulfate, MiraLax, Norvasc, Pepcid, Singulair, Synthroid, and Tylenol. LABORATORY DATA: White blood cells 8.1, hemoglobin 11.4, hematocrit noted Sodium 142, potassium 5.4, BUN noted , creatinine 3, glucose 127, magnesium 2.5. ASSESSMENT AND PLAN: Mr. Sam Pantoja is an 81-year-old male with anemia, hyperkalemia, renal insufficiency, hyperglycemia, hypermagnesemia, proteinuria, hematuria, rule out urinary tract infection, has abdominal pain. Seen by Dr. Segundo. History of chronic obstructive pulmonary disease; sleep apnea syndrome; prostate cancer with metastasis, getting treatment from [facility]; hypothyroidism; anemia; diabetes mellitus. Patient is now doing self catheterization that is helping. CAT scan of the abdomen and pelvis done, reviewed by me. We will follow up. Megan Sheth MD MTDD
[2017-07-30] MEDS: Levothyroxine 112 MCG TAB PO SCH (06:24)
[2017-07-30 07:20] LABS: ALB/GLOB RATIO 1.2 (1.1-1.8); ALBUMIN 3.5 g/dL (3.0-4.8)
[2017-07-30] MEDS: Fluticasone Nasal 50 mcg/Spray NS SCH ×2 (09:41→17:03)
[2017-07-30] MEDS: POLYETHYLENE GLYCOL 3350 17 GM/Dose PACKET PO SCH ×3 (09:41→17:05)
[2017-07-30] MEDS: ABIRATERONE ACETATE 1000 MG PO SCH (09:43)
--- NOTE | 2017-07-30 20:04 | PN ---
DATE: 07/30/2017 PULMONARY PROGRESS NOTE REFERRING PHYSICIAN: Megan Sheth MD SUBJECTIVE: Patient is lying in the bed, head at 45 degrees, feels much better, no headaches, no rhinitis, tolerating CPAP well. No nausea. Abdominal discomfort is better. Has a Monroe catheter. No leg pain or leg swelling. OBJECTIVE: GENERAL: In no acute distress. VITAL SIGNS: Temp is 98, heart rate 71, respiratory rate is 20, blood pressure 148/71, pulse ox 99% on room air. HEENT: Moist mucous membranes. Crowded airway. NECK: Supple. No JVD. LUNGS: Has good airflow with rhonchi. HEART: S1, S2. ABDOMEN: Soft, nontender, not distended. EXTREMITIES: There is no edema. NEUROLOGIC: Awake, alert, follow simple commands. MEDICATIONS: He is on Afrin p.r.n. basis, Cepacol lozenges every 2 hours p.r.n., Claritin 10 mg daily, Colace 100 mg daily, DuoNeb every 6 hours, Ecotrin 81 mg daily, ferrous sulfate 324 mg with meals, Flonase one spray to each nostril twice a day, Zytiga 1000 mg daily to be on from home, MiraLax 17 g twice a day, Norvasc 10 mg daily, Singulair 10 mg daily, Synthroid 112 mcg daily, Tylenol p.r.n. LABORATORY DATA: Reviewed and noted. Sodium 143, potassium 2.7, chloride 106, bicarbonate 29, BUN 19, creatinine 1.5, glucose 103, calcium 9, AST 20, ALT 20, alk phos is 261, albumin is 3.5. Urine culture has some gram-positive cocci. IMPRESSION AND PLAN: Bladder outlet obstruction, requiring Monroe catheter, has prostate cancer with metastatic disease, on oral chemotherapy, resolved, renal failure, hydronephrosis, chronic obstructive lung disease, cardiomyopathy, obstructive sleep apnea syndrome, hypertension, anemia, history of seasonal allergy, sinusitis. Spoke to the nursing staff, requested to take the Monroe catheter and may do bladder scanning, may do straight catheter if urinary retention is more than 250. Out of bed to chair. Thank you and we will follow with you. Christy Bartlett MD [facility] # [id number]
[2017-07-30] MEDS: Latanoprost 2.5 ml Opht Soln OU SCH (22:15)
--- NOTE | 2017-07-30 22:59 | PN ---
DATE: 07/30/2017 SUBJECTIVE: This patient was seen and evaluated earlier today. Patient is feeling much better. The Monroe tube is removed. Patient does do self catheterization. PHYSICAL EXAMINATION: VITAL SIGNS: Temperature is 97.6, pulse is 84, blood pressure is 148/94, respirations 18. HEENT: Atraumatic and anicteric. NECK: Supple. HEART: S1 and S2 heard. LUNGS: Bilateral air entry present. ABDOMEN: Soft. There is no mass palpable. No tenderness. LABORATORY DATA: Alkaline phosphatase is mildly elevated to 261. IMPRESSION: This 81-year-old patient admitted with and abdominal pain and was found to have a urinary bladder distension with bilateral hydronephrosis. Patient had a Monroe tube placed and it was now removed. Patient does have self catheterization at home. He is tolerating diet. Patient has history of constipation. Patient is now improved, moving his bowels well. Patient did have colonoscopy done 2 years ago, small polyps removed. Other past medical history is significant for prostate cancer with mets, on Zytiga. Patient presently on MiraLax twice daily. We will cut down the dose to once daily. We will continue to closely followup his care and suggest further management based on the clinical course. Trista Segundo MD
--- NOTE | 2017-07-31 00:54 | PN ---
DATE: 07/30/2017 Please see the previously dictated consultation note. The patient was admitted with urinary retention. See the plans as below. I spoke to the nurse early today. The patient was given a voiding trial. He was not able to void as expected. A bladder scan was done and showed a residual of 750 mL. The patient then catheterized himself and he obtained 800 mL which is about the same and he had no difficulty. UROLOGY DIAGNOSIS: Urinary retention. PLAN: To maintain the patient on clean intermittent catheterization for which he is already well suited. We are going to follow him as an outpatient and offer him other options. Mello Goldstein MD
[2017-07-31] MEDS: Albuterol-Ipratrop 3 mg / 0.5 (3 ml) UD IH SCH ×3 (01:43→13:29)
--- NOTE | 2017-07-31 04:19 | PN ---
DATE: 07/30/2017 SUBJECTIVE: Patient is an 81-year-old male. Patient was seen and examined on the bedside on 07/30/2017. Patient looks better. Stomach is normal. Monroe catheter was removed. Was waiting for the urinary output. PHYSICAL EXAMINATION: VITAL SIGNS: Temperature 98, heart rate 71, respiratory rate 20, blood pressure 140/70, pulse oximetry 99% on room air. HEENT: Head: Normocephalic, atraumatic. Eyes: PERRLA. Extraocular muscles intact. Conjunctivae clear. Nose: Patent. Mucous membrane moist. NECK: Supple. No carotid bruit, JVD, or thyromegaly. CHEST: Bilaterally symmetrical. HEART: S1 and S2 positive. LUNGS: Clear to auscultation. ABDOMEN: Soft. Bowel sounds present. No organomegaly. EXTREMITIES: No edema. No cyanosis. NEUROLOGIC: He is awake and alert. Follows simple commands. MEDICATIONS: Afrin, Cepacol lozenges, Claritin, Colace, DuoNeb, Ecotrin, ferrous sulfate, Flonase, Norvasc for blood pressure. PLAN: copd , asthma , panceatic ca with mets , htn , cad , non complient , getting pt ot , pul is on the case GI and DVT prophylaxis. Repeat labs. We will follow up. Megan Sheth MD MTDOlivier
[2017-07-31] MEDS: ABIRATERONE ACETATE 1000 MG PO SCH (05:57)
[2017-07-31] MEDS: Levothyroxine 112 MCG TAB PO SCH (05:58)
--- NOTE | 2017-07-31 06:13 | CON ---
DATE: 07/29/2017 UROLOGY CONSULTATION REASON FOR CONSULTATION: Urinary retention. HISTORY OF PRESENT ILLNESS: History is from the patient and from the chart. Mr. Pantoja is a very pleasant gentleman who was admitted to the hospital under the care of Dr. Sheth with urinary retention with about a liter in his bladder apparently. The patient states that he has had two "Roto-Rooters" in the past and he does not want another Roto Rooter. He is interested to see what else could be done. In the interim, he says he has been on intermittent catheterization wherever he was and in whatever facility, he has forgotten to ask for catheters and then before he knew it, he would be in retention. He reports that he is on clean intermittent catheterization on a regular basis. He catheterizes himself and he is doing well, and stable and that is why he wants to go back; in fact one of the persons he mentioned can just take the catheter out and catheterize himself. See the plans listed below. PAST MEDICAL AND SURGICAL HISTORY: Listed on the chart. Multiple medical issues. Chemotherapy, rehabilitation now in Oncology. He has multiple issues. See the plans listed below. They are all listed in the chart. MEDICATIONS: See chart. ALLERGIES: Reviewed. REVIEW OF SYSTEMS: As listed above. PHYSICAL EXAMINATION: GENERAL: Well-nourished male, in no apparent distress. He is currently resting comfortably. VITAL SIGNS: Within normal limits. They are included in the chart. LUNGS: Clear. HEART: Normal S1 and S2. ABDOMEN: Overall soft, not grossly distended. No evidence of distention. The Monroe catheter is in place. It is draining well. DIAGNOSES: Urinary retention, voiding dysfunction, and hematuria. PLAN: As follows: From Urology standpoint, I spoke to the nurse little bit. Today, It is 07/29/2017, we are going to plan to give the patient a voiding trial tomorrow, but I do not think it will be successful. Instead, we are going to recommend that he resume intermittent catheterization. We are going to resume intermittent catheterization. We will see how patient does with this. So, then further plans will follow. I explained to the patient that there are many many other options short of repeat surgical procedure that he still might benefit from. He is very interested in these well. We just have to figure out the time on . Thank you for the Urology consult. Mello Goldstein MD
--- NOTE | 2017-07-31 06:56 | CP.PCM.PN ---
Subjective - Date & Time of Evaluation Date of Evaluation: 07/31/17 Time of Evaluation: 07:00 - Subjective Subjective: GI Progress Note for [place] PGY2 Patient seen and examined at bedside. There were no acute overnight events as per nursing staff. Patient is resting comfortably in bed with BiPAP. He states he had a BM yesterday. He denies chest pain, shortness of breath, numbness/ tingling, fever or chills, abdominal pain, nausea/vomiting/diarrhea/ constipation. Objective - Vital Signs/Intake and Output Vital Signs (last 24 hours): Temp Pulse Resp BP Pulse Ox 99.2 F 84 20 133/81 97 07/30/17 17:32 07/31/17 02:00 07/30/17 17:32 07/30/17 17:32 07/30/17 17:32 Intake and Output: 07/30/17 07/31/17 18:59 06:59 Intake Total 420 Output Total 800 Balance -380 - Medications Medications: Current Medications Acetaminophen (Tylenol 325mg Tab) 650 mg PO Q4H PRN PRN Reason: pain or fever Albuterol/Ipratropium (Duoneb 3 Mg/0.5 Mg (3 Ml) Ud) 3 ml IH [id number] [facility] Last Admin: 07/31/17 01:43 Dose: Not Given Amlodipine Besylate (Norvasc) 10 mg PO DAILY [facility] Last Admin: 07/30/17 09:40 Dose: 10 mg Aspirin (Ecotrin) 81 mg PO 0800 [facility] Last Admin: 07/30/17 09:00 Dose: 81 mg Benzocaine/Menthol (Cepacol Sore Throat) 1 eli MT Q2H PRN PRN Reason: Sore Throat Docusate Sodium (Colace) 100 mg PO DAILY [facility] Last Admin: 07/30/17 09:40 Dose: 100 mg Famotidine (Pepcid) 20 mg PO HS [facility] Last Admin: 07/30/17 22:14 Dose: 20 mg Ferrous Sulfate (Feosol) 324 mg PO WM [facility] Last Admin: 07/30/17 17:03 Dose: 324 mg Fluticasone Propionate (Flonase) 1 actuation NS BID [facility] Last Admin: 07/30/17 17:03 Dose: 1 spray Latanoprost (Xalatan Opht) 0 ml OU HS [facility] Last Admin: 07/30/17 22:15 Dose: 2.5 ml Levothyroxine Sodium (Synthroid) 112 mcg PO 0600 [facility] Last Admin: 07/31/17 05:58 Dose: 112 mcg Loratadine (Claritin) 10 mg PO DAILY [facility] Last Admin: 07/30/17 09:41 Dose: 10 mg Montelukast Sodium (Singulair) 10 mg PO HS [facility] Last Admin: 07/30/17 22:15 Dose: 10 mg Home Med - Abiraterone Acetate [Zytiga] 1,000 Mg 1,000 mg PO 0600 [facility] Last Admin: 07/31/17 05:57 Dose: Not Given Oxymetazoline HCl (Afrin 0.05%) 0 ml NS Q12H PRN PRN Reason: Nasal congestion Polyethylene Glycol (Miralax) 17 gm PO BID [facility] Last Admin: 07/30/17 17:05 Dose: Not Given - Labs Labs: 07/30/17 06:15 PT 11.4 SECONDS (9.4-12.5) 07/28/17 16:36 INR 1.00 (0.93-1.08) 07/28/17 16:36 APTT 30.7 Seconds (25.1-36.5) 07/28/17 16:36 - Constitutional Appears: No Acute Distress - Head Exam Head Exam: ATRAUMATIC, NORMAL INSPECTION, NORMOCEPHALIC - Eye Exam Eye Exam: Normal appearance, PERRL Pupil Exam: NORMAL ACCOMODATION, PERRL - ENT Exam ENT Exam: Mucous Membranes Moist - Neck Exam Neck Exam: Full ROM - Respiratory Exam Respiratory Exam: Clear to Ausculation Bilateral, NORMAL BREATHING PATTERN. absent: Rales, Rhonchi, Wheezes - Cardiovascular Exam Cardiovascular Exam: REGULAR RHYTHM, +S1, +S2. absent: Gallop, Rubs, Murmur - GI/Abdominal Exam GI & Abdominal Exam: Distended, Soft, Normal Bowel Sounds. absent: Rigid, Tenderness, Mass, Rebound - Extremities Exam Extremities Exam: Normal Inspection. absent: Calf Tenderness, Pedal Edema - Neurological Exam Neurological Exam: Alert, Awake, CN II-XII Intact - Skin Skin Exam: Dry, Warm Assessment and Plan - Assessment and Plan (Free Text) Assessment: This is an 81yo male with past medical history of prostate ca with mets s/p Zytiga, DM, JH, COPD, anemia and hyperthyroidism who was admitted for 1. Abdominal pain (improved) - secondary to constipation v. urinary retention 2. UTI 3. Metastatic prostate ca- not currently on chemo 4. COPD 5. DM 6. JH 7. Hx of colon polyps 8. Anemia (stable) Plan: Patient is tolerating diet. Will decrease Miralax to once daily. Continue Colace. Urology is on consult. Patient was only doing straight cath once per day and will need it more frequently. Hgb is stable. Continue Pepcid. Case seen, discussed and reviewed with Dr. Segundo. [place] PGY2
[2017-07-31 08:36] VITALS: BP 146/80; RESP 19; TEMP 97.9; O2SAT 100
--- NOTE | 2017-07-31 08:58 | PN ---
DATE: 07/29/2017 SUBJECTIVE: This patient was seen and evaluated earlier today. Discussed with nursing staff. Patient does have a Monroe catheter now. Feeling significantly improved. He did mention that he has been history of prostate CA. Patient has been doing self catheterization at home and he forgot to mention about it. Presently, symptoms improved. Had bowel movement. PHYSICAL EXAMINATION: ABDOMEN: Soft. There is no tenderness. . HEART: S1 and S2 heard. LUNGS: Bilateral air entry present. LABORATORY DATA: Reviewed. IMPRESSION: Urinary retention, status post Monroe catheter. Patient has a history of chronic obstructive uropathy . Patient has been having self catheterization for long time at home. Presently, he also has a distended bladder with bilateral hydronephrosis probably due to the back pressure. Patient had a history of colon polyp. Last colonoscopy about 2 years ago. Would recommend at this point, advance the diet and monitor clinically. Trista Segundo MD
--- NOTE | 2017-07-31 09:49 | PCM.URO ---
Urology Progress Note - Subjective Abdominal Pain: Yes - Objective Intake & Output: Intake & Output 07/30/17 07/31/17 07/31/17 18:59 06:59 18:59 Intake Total 420 Output Total 800 Balance -380 Intake: Oral 420 Output: Urine 800 Urethral (Monroe) 800 Other: # Bowel Movements 1 Vital Signs: Vital Signs - 24 hr 07/30/17 07/30/17 07/30/17 10:00 14:00 17:32 Temperature 99.2 F Pulse Rate 74 81 83 Respiratory 20 Rate Blood Pressure 133/81 O2 Sat by Pulse 99 97 Oximetry 07/30/17 07/30/17 07/31/17 18:00 22:00 00:39 Temperature Pulse Rate 81 82 81 Respiratory Rate Blood Pressure O2 Sat by Pulse Oximetry 07/31/17 07/31/17 07/31/17 02:00 06:00 08:36 Temperature 97.9 F Pulse Rate 84 74 66 Respiratory 19 Rate Blood Pressure 146/80 O2 Sat by Pulse 100 Oximetry - Male Phallus: Normal (pt tolerating cic (clean intermittent cathetirazation ) well no gu treatment for now see dictated notes as well from 07/29 and 07/30)
[2017-07-31] MEDS: Fluticasone Nasal 50 mcg/Spray NS SCH (10:09)
[2017-07-31] MEDS: POLYETHYLENE GLYCOL 3350 17 GM/Dose PACKET PO SCH ×2 (10:09→10:18)
[2017-07-31 14:33] VITALS: PULSE 88
--- NOTE | 2017-07-31 15:44 | CP.PCM.CON ---
History of Present Illness - History of Present Illness History of Present Illness: Infectious Disease Consultation: July 31, 2017 81 yo male with a past medical history of COPD, prostate cancer with metastasis , diabetes mellitus, anemia came into the emergency room with complaints of generalized weakness, fatigue, coughing and SOB treated for flu, on Tamiflu, for his last hospitalization and the he was placed in TCU for conditioning. The patient had complained of abdominal cramping, mainly lower abdomen, patient does endorse having history of constipation, does not take any laxatives at home. Transferred [facility] to Hospital again for worsening abdominal pain. Found to have a UTI with enterococcus. 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 PSHx: cataract surgery bilaterally Allergies: NKDA Social Hx: Former smoker. No EtOH or illicit drug use Active Medications Acetaminophen (Tylenol 325mg Tab) 650 mg PO Q4H PRN PRN Reason: pain or fever Albuterol/Ipratropium (Duoneb 3 Mg/0.5 Mg (3 Ml) Ud) 3 ml IH [id number] [facility] Last Admin: 07/31/17 13:29 Dose: 3 ml Amlodipine Besylate (Norvasc) 10 mg PO DAILY [facility] Last Admin: 07/31/17 10:10 Dose: 10 mg Amoxicillin (Amoxil 500 Mg Cap) 500 mg PO Q8 [facility] PRN Reason: Protocol Stop: 08/07/17 14:01 Last Admin: 07/31/17 14:19 Dose: 500 mg Aspirin (Ecotrin) 81 mg PO 0800 [facility] Last Admin: 07/31/17 10:09 Dose: 81 mg Benzocaine/Menthol (Cepacol Sore Throat) 1 eli MT Q2H PRN PRN Reason: Sore Throat Docusate Sodium (Colace) 100 mg PO DAILY [facility] Last Admin: 07/31/17 10:09 Dose: 100 mg Famotidine (Pepcid) 20 mg PO HS [facility] Last Admin: 07/30/17 22:14 Dose: 20 mg Ferrous Sulfate (Feosol) 324 mg PO WM [facility] Last Admin: 07/31/17 14:25 Dose: 324 mg Fluticasone Propionate (Flonase) 1 actuation NS BID [facility] Last Admin: 07/31/17 10:09 Dose: 1 spray Latanoprost (Xalatan Opht) 0 ml OU HS [facility] Last Admin: 07/30/17 22:15 Dose: 2.5 ml Levothyroxine Sodium (Synthroid) 112 mcg PO 0600 [facility] Last Admin: 07/31/17 05:58 Dose: 112 mcg Loratadine (Claritin) 10 mg PO DAILY [facility] Last Admin: 07/31/17 10:09 Dose: 10 mg Montelukast Sodium (Singulair) 10 mg PO HS [facility] Last Admin: 07/30/17 22:15 Dose: 10 mg Home Med - Abiraterone Acetate [Zytiga] 1,000 Mg 1,000 mg PO 0600 [facility] Last Admin: 07/31/17 05:57 Dose: Not Given Oxymetazoline HCl (Afrin 0.05%) 0 ml NS Q12H PRN PRN Reason: Nasal congestion Last Admin: 07/31/17 10:08 Dose: 1 spr Polyethylene Glycol (Miralax) 17 gm PO DAILY [facility] Last Admin: 07/31/17 10:18 Dose: Not Given Family Hx: hypertension ROS: cough, SOB, abdominal discomfort, anxiety. NO fevers, chills, nausea, vomiting, headaches, dizziness, chest pain, melena, hematuria, hematemesis, hematochezia, depression Past Patient History - Infectious Disease Hx of Infectious Diseases: None - Tetanus Immunizations Tetanus Immunization: Unknown - Past Social History Smoking Status: Former Smoker - CARDIAC Hx Cardiac Disorders: Yes Hx Hypertension: Yes - PULMONARY Hx Chronic Obstructive Pulmonary Disease (COPD): Yes - NEUROLOGICAL Hx Neurological Disorder: Yes Hx Dizziness: Yes (VERTIGO) - HEENT Hx HEENT Problems: Yes (eyeglasses) Hx Cataracts: Yes Hx Glaucoma: Yes - RENAL Hx Chronic Kidney Disease: No - ENDOCRINE/METABOLIC Hx Diabetes Mellitus Type 2: Yes Hx Hypothyroidism: Yes - HEMATOLOGICAL/ONCOLOGICAL Hx Blood Disorders: Yes Hx Anemia: Yes Hx Cancer: Yes (PROSTATE-takes Zytiga) - INTEGUMENTARY Hx Dermatological Problems: No - MUSCULOSKELETAL/RHEUMATOLOGICAL Hx Arthritis: Yes - GASTROINTESTINAL Hx Gastrointestinal Disorders: No - GENITOURINARY/GYNECOLOGICAL Hx Genitourinary Disorders: No (UTI) Hx Reproductive Disorders: Yes (PROSTATE CA) - PSYCHIATRIC Hx Psychophysiologic Disorder: Yes Hx Anxiety: Yes Hx Substance Use: No - SURGICAL HISTORY Hx Surgeries: Yes (CYSTOSCOPY, TONSILLECTOMY) - ANESTHESIA Hx Anesthesia: Yes Hx Anesthesia Reactions: No Hx Malignant Hyperthermia: No Meds Home Medications: Home Medication List Medication Instructions Recorded Confirmed Type AMPicillin [Ampicillin] 500 mg PO Q8 #21 cap 07/31/17 Rx Allergies/Adverse Reactions: Allergies Allergy/AdvReac Type Severity Reaction Status Date / Time No Known Allergies Allergy Verified 07/19/17 15:04 - Medications Medications: Current Medications Acetaminophen (Tylenol 325mg Tab) 650 mg PO Q4H PRN PRN Reason: pain or fever Albuterol/Ipratropium (Duoneb 3 Mg/0.5 Mg (3 Ml) Ud) 3 ml IH [id number] [facility] Last Admin: 07/31/17 13:29 Dose: 3 ml Amlodipine Besylate (Norvasc) 10 mg PO DAILY [facility] Last Admin: 07/31/17 10:10 Dose: 10 mg Amoxicillin (Amoxil 500 Mg Cap) 500 mg PO Q8 [facility] PRN Reason: Protocol Stop: 08/07/17 14:01 Last Admin: 07/31/17 14:19 Dose: 500 mg Aspirin (Ecotrin) 81 mg PO 0800 [facility] Last Admin: 07/31/17 10:09 Dose: 81 mg Benzocaine/Menthol (Cepacol Sore Throat) 1 eli MT Q2H PRN PRN Reason: Sore Throat Docusate Sodium (Colace) 100 mg PO DAILY [facility] Last Admin: 07/31/17 10:09 Dose: 100 mg Famotidine (Pepcid) 20 mg PO HS [facility] Last Admin: 07/30/17 22:14 Dose: 20 mg Ferrous Sulfate (Feosol) 324 mg PO WM [facility] Last Admin: 07/31/17 14:25 Dose: 324 mg Fluticasone Propionate (Flonase) 1 actuation NS BID [facility] Last Admin: 07/31/17 10:09 Dose: 1 spray Latanoprost (Xalatan Opht) 0 ml OU HS [facility] Last Admin: 07/30/17 22:15 Dose: 2.5 ml Levothyroxine Sodium (Synthroid) 112 mcg PO 0600 [facility] Last Admin: 07/31/17 05:58 Dose: 112 mcg Loratadine (Claritin) 10 mg PO DAILY [facility] Last Admin: 07/31/17 10:09 Dose: 10 mg Montelukast Sodium (Singulair) 10 mg PO HS [facility] Last Admin: 07/30/17 22:15 Dose: 10 mg Home Med - Abiraterone Acetate [Zytiga] 1,000 Mg 1,000 mg PO 0600 [facility] Last Admin: 07/31/17 05:57 Dose: Not Given Oxymetazoline HCl (Afrin 0.05%) 0 ml NS Q12H PRN PRN Reason: Nasal congestion Last Admin: 07/31/17 10:08 Dose: 1 spr Polyethylene Glycol (Miralax) 17 gm PO DAILY [facility] Last Admin: 07/31/17 10:18 Dose: Not Given Physical Exam - Constitutional Appears: Non-toxic, No Acute Distress, Chronically Ill - Head Exam Head Exam: ATRAUMATIC, NORMOCEPHALIC - Eye Exam Eye Exam: EOMI, PERRL Pupil Exam: NORMAL ACCOMODATION, PERRL - ENT Exam ENT Exam: Mucous Membranes Moist, Normal External Ear Exam, TM's Normal Bilaterally - Respiratory Exam Respiratory Exam: Clear to Auscultation Bilateral, NORMAL BREATHING PATTERN. absent: Rales, Rhonchi, Wheezes - Cardiovascular Exam Cardiovascular Exam: REGULAR RHYTHM, RRR, +S1, +S2 - GI/Abdominal Exam GI & Abdominal Exam: Distended, Normal Bowel Sounds, Soft. absent: Tenderness - Extremities Exam Extremities exam: Positive for: full ROM, normal inspection - Neurological Exam Neurological exam: Alert, CN II-XII Intact, Oriented x3 - Psychiatric Exam Psychiatric exam: Normal Affect, Normal Mood - Skin Skin Exam: Intact, Normal Color Results - Vital Signs Recent Vital Signs: Last Vital Signs Temp 97.9 F 07/31/17 08:36 Pulse 88 07/31/17 14:00 Resp 19 07/31/17 08:36 BP 146/80 07/31/17 10:10 Pulse Ox 100 07/31/17 08:36 - Labs Result Diagrams: 07/28/17 16:36 07/30/17 06:15 Assessment & Plan - Assessment and Plan (Free Text) Assessment: 81 yo male with abdominal pain found to have a UTI with enterococcus. Enterococcus sensitive to ampicillin. Can utilize oral Amoxicillin for treatment. Medical history complicated by prostate cancer history with mets, hypothyroidism, and COPD. He initially came to the hospital for SOB and abdominal pain. It appears that his abdominal pain has been improving. Supportive care. Thank you for allowing me to participate in the care of the patient, we will follow with you.
--- NOTE | 2017-08-01 02:23 | PN ---
DATE: 07/31/2017 PULMONARY PROGRESS NOTE REFERRING PHYSICIAN: Megan Sheth MD. SUBJECTIVE: The patient is sitting up in a chair. Night was unremarkable. Monroe catheter was removed yesterday. Needed straight cath this morning. No headache. No rhinitis. No cough. Tolerated CPAP well. No abdominal pain. No dysuria. No leg pain or leg swelling. OBJECTIVE: GENERAL: In no acute distress. VITAL SIGNS: Temperature is 98, heart rate is 88, respiratory rate is 18, blood pressure 146/80, pulse ox 100% on 2 L nasal cannula. HEENT: Moist mucous membrane. Crowded airway. Mallampati score is 4. NECK: Supple. No JVD. LUNGS: Have a fair airflow with rhonchi. HEART: S1 and S2. ABDOMEN: Soft, nontender, no organomegaly. EXTREMITIES: No edema. NEUROLOGICAL: Awake and alert. Follows simple commands. LABORATORY DATA: Reviewed. No new lab is available since yesterday. MEDICATIONS: Reviewed and noted. No new changes in medications reported since yesterday. IMPRESSION AND PLAN: Bladder outlet obstruction requiring Monroe catheter, which had been removed. Has a prostate cancer with metastatic disease, on chemotherapy; obstructive uropathy, which improved after placing Monroe catheter; chronic obstructive lung disease; cardiomyopathy; obstructive sleep apnea syndrome; hypertension; anemia; seasonal allergies. I spoke to nursing staff and requested to straight cath him before he leaves. The patient has a catheter at home and does self catheterization. Pulmonary point of view, continue continuous positive airway pressure, which he has at home and continue bronchodilator. Thank you and we will follow with you as outpatient. Christy Bartlett MD
== END 2017-07-31 18:10 | disposition home or self-care (01) | DRG 699 ==
LOC: ED 13:59 → ERH 18:29 → 3RNO 21:21
PROVIDERS: ADMIT Internal Medicine; ATTEND Internal Medicine
DX: N32.0 Bladder-neck obstruction (principal); C79.51 Secondary malignant neoplasm of bone; C79.52 Secondary malignant neoplasm of bone marrow; I42.9 Cardiomyopathy, unspecified; K56.7 Ileus, unspecified; N13.30 Unspecified hydronephrosis; N39.0 Urinary tract infection, site not specified; C61 Malignant neoplasm of prostate; D64.9 Anemia, unspecified; E03.9 Hypothyroidism, unspecified; E05.90 Thyrotoxicosis, unspecified without thyrotoxic crisis or storm; E11.65 Type 2 diabetes mellitus with hyperglycemia; E78.5 Hyperlipidemia, unspecified; E83.41 Hypermagnesemia; E87.5 Hyperkalemia; G47.33 Obstructive sleep apnea (adult) (pediatric); H40.9 Unspecified glaucoma; I10 Essential (primary) hypertension; J30.2 Other seasonal allergic rhinitis; J43.0 Unilateral pulmonary emphysema [MacLeod's syndrome]; J44.9 Chronic obstructive pulmonary disease, unspecified; K21.9 Gastro-esophageal reflux disease without esophagitis; K52.9 Noninfective gastroenteritis and colitis, unspecified; N19 Unspecified kidney failure; B95.2 Enterococcus as the cause of diseases classified elsewhere; R62.7 Adult failure to thrive; Z79.51 Long term (current) use of inhaled steroids; Z79.82 Long term (current) use of aspirin; Z86.010 Personal history of colon polyps; Z87.891 Personal history of nicotine dependence

== ENCOUNTER 2017-08-13 17:13 | Observation (INO) | payer MEDICARE, MEDICAID ==
[2017-08-13] MEDS ORDERED: Albuterol-Ipratrop 3 mg / 0.5 (3 ml) UD IH STA (17:49)
--- NOTE | 2017-08-13 18:31 | ED PDOC ---
Arrival/HPI - General Chief Complaint: Dizziness/Lightheaded Time Seen by Provider: 08/13/17 17:47 Historian: Patient - History of Present Illness Narrative History of Present Illness (Text): 08/13/17 18:24 81yo male with past medical history of hypertension, prostate CA, COPD, vertigo who was bib EMS for complaint of dizziness and BARNES since this morning. States he usually use neb treatment 3times a day, but he states he almost "passed out" this morning and couldn't use his treatment. States this dizziness is different from his typical vertigo symptom. He otherwise denies chest pain, focal weakness , nausea, visual changes, vomiting, diarrhea, constipation, fever, chills, LE edema, calf pain, any other complaint. Past Medical History - Provider Review Nursing Documentation Reviewed: Yes - Past History Past History: No Previous - Infectious Disease Hx of Infectious Diseases: None - Tetanus Immunization Tetanus Immunization: Unknown - Cardiac Hx Cardiac Disorders: Yes Hx Hypertension: Yes - Pulmonary Hx Chronic Obstructive Pulmonary Disease (COPD): Yes - Neurological Hx Neurological Disorder: Yes Hx Dizziness: Yes (VERTIGO) - HEENT Hx HEENT Disorder: Yes (eyeglasses) Hx Cataracts: Yes Hx Glaucoma: Yes - Renal Hx Renal Disorder: No - Endocrine/Metabolic Hx Diabetes Mellitus Type 2: Yes Hx Hypothyroidism: Yes - Hematological/Oncological Hx Blood Disorders: Yes Hx Anemia: Yes Hx Cancer: Yes (PROSTATE-takes Zytiga) - Integumentary Hx Dermatological Disorder: No - Musculoskeletal/Rheumatological Hx Arthritis: Yes - Gastrointestinal Hx Gastrointestinal Disorders: No - Genitourinary/Gynecological Hx Genitourinary Disorders: No (UTI) Hx Reproductive Disorders: Yes (PROSTATE CA) - Psychiatric Hx Psychophysiologic Disorder: Yes Hx Anxiety: Yes Hx Substance Use: No - Anesthesia Hx Anesthesia: Yes Hx Anesthesia Reactions: No Hx Malignant Hyperthermia: No Family/Social History - Physician Review Nursing Documentation Reviewed: Yes Family/Social History: Unknown Family HX Smoking Status: Former Smoker Hx Alcohol Use: Yes (social) Hx Substance Use: No Hx Substance Use Treatment: No Allergies/Home Meds Allergies/Adverse Reactions: Allergies No Known Allergies Allergy (Verified 08/13/17 17:24) Home Medications: Home Meds Medication Instructions Recorded Confirmed Budesonide/Formoterol Fumarate 2 puff IH BID 03/18/17 08/13/17 [Symbicort 160-4.5 Mcg Inhaler] Fluticasone Nasal [Flonase] 2 spr NS BID PRN 03/18/17 08/13/17 Latanoprost 0.005% Opht [Xalatan 1 drp OU HS 03/18/17 08/13/17 Opht] Levothyroxine [Synthroid] 112 mcg PO DAILY 03/18/17 08/13/17 Aspirin [Ecotrin] 81 mg PO DAILY 06/17/17 08/13/17 Docusate [Colace] 100 mg PO DAILY 06/17/17 08/13/17 Enzalutamide [Xtandi] 160 mg PO DAILY 08/13/17 08/13/17 Review of Systems - Physician Review All systems were reviewed & negative as marked: Yes - Review of Systems Constitutional: Normal Eyes: Normal ENT: Normal Respiratory: SOB Cardiovascular: BARNES. absent: Chest Pain, Palpitations, Edema, Calf Pain Gastrointestinal: Normal Genitourinary Male: Normal Musculoskeletal: Normal Skin: Normal Neurological: Dizziness Endocrine: Normal Hemo/Lymphatic: Normal Psychiatric: Normal Physical Exam Vital Signs Reviewed: Yes Vital Signs Temp Pulse Resp BP Pulse Ox 08/13/17 22:39 97.5 F L 18 08/13/17 20:04 97.5 F L 08/13/17 19:28 82 19 147/84 98 08/13/17 18:00 95 Temperature: Afebrile Blood Pressure: Normal Pulse: Regular Respiratory Rate: Normal Appearance: Positive for: Well-Appearing, Non-Toxic, Comfortable Pain Distress: None Mental Status: Positive for: Alert and Oriented X 3 - Systems Exam Head: Present: Atraumatic, Normocephalic Pupils: Present: PERRL Extroacular Muscles: Present: EOMI Conjunctiva: Present: Normal Mouth: Present: Moist Mucous Membranes Neck: Present: Normal Range of Motion Respiratory/Chest: Present: Good Air Exchange, Decreased Breath Sounds. No: Respiratory Distress, Accessory Muscle Use, Wheezes, Rales, Retracting, Rhonchi Cardiovascular: Present: Regular Rate and Rhythm, Normal S1, S2. No: Murmurs Abdomen: No: Tenderness, Distention, Peritoneal Signs Back: Present: Normal Inspection Upper Extremity: Present: Normal Inspection. No: Cyanosis, Edema Lower Extremity: Present: Normal Inspection. No: Edema Neurological: Present: GCS=15, CN II-XII Intact, Speech Normal, Normal Sensory Function, Normal Cerebellar Funct, Norm Deep Tendon Reflexes, Memory Normal, Other (No focal neurological deficit) Skin: Present: Warm, Dry, Normal Color. No: Rashes Psychiatric: Present: Alert, Oriented x 3, Normal Insight, Normal Concentration Medical Decision Making ED Course and Treatment: 08/14/17 02:02 PT presente to emergency department for stated history. He was neurologically intact in emergency department . Lab was reviewed. On re evaluation after treatment in Ed he notes his SOB improved in emergency department , but he still have SOB which is chronic for him Chest X-Ray NAD EKGNSR; LAD @ 76bpm Head CT FINDINGS: Brain: Age- related chronic microvascular changes are noted within the white matter. Lacunar type infarct noted within the terrie which is a new finding compared with prior No hemorrhage. Ventricles: The ventricles and sulci are prominent compatible with age- appropriate atrophy. Bones/joints: Unremarkable. No acute fracture. Soft tissues: Unremarkable. Sinuses: Unremarkable as visualized. No acute sinusitis. Mastoid air cells: Unremarkable as visualized. No mastoid effusion. IMPRESSION: Age-appropriate atrophy and chronic microvascular change. Small pontine type lacunar infarct, new when compared with the prior study Pt complained of having near syncopal epiosde. He will need to be placed on OBS for further evaluation and observation Case was DW Dr. Sheth and she accepted pt for admission. - Lab Interpretations Lab Results: 08/13/17 18:05 08/13/17 18:05 Lab Results 08/13/17 18:05: Sodium 143, Chloride 109 H, Potassium 4.3, Carbon Dioxide 24, Anion Gap 14, BUN 13, Creatinine 0.9, Est GFR ( Amer) > 60, Est GFR (Non- Af Amer) > 60, Random Glucose 100, Calcium 9.3, Magnesium 1.9, Total Bilirubin 0.7, AST 21, ALT 14, Alkaline Phosphatase 463 H D, Lactate Dehydrogenase 731 H, Total Creatine Kinase 79, Troponin I < 0.01, NT-Pro-B Natriuret Pep 166, Total Protein 6.5, Albumin 3.5, Globulin 2.9, Albumin/Globulin Ratio 1.2 08/13/17 18:05: pO2 167 H, VBG pH 7.44 H, VBG pCO2 40.0, VBG HCO3 27.2, VBG Total CO2 28.4 H, VBG O2 Sat (Calc) 99.0 H, VBG Base Excess 2.8 H, VBG Potassium 4.2, Sodium 142.0, Chloride 112.0 H, Glucose 101, Lactate 1.2, FiO2 21.0, Venous Blood Potassium 4.2 08/13/17 18:05: PT 12.4, INR 1.09 H, APTT 33.1 08/13/17 18:05: WBC 4.2 L D, RBC 3.56, Hgb 10.4 L, Hct 31.9 L, MCV 89.6, MCH 29.2, MCHC 32.6, RDW 13.9, Plt Count 171, MPV 12.3 H, Gran % 46.7 L, Lymph % ( Auto) 40.0 H, Reeves % (Auto) 10.9 H, Eos % (Auto) 1.9, Baso % (Auto) 0.5, Gran # 1.98, Lymph # (Auto) 1.7, Reeves # (Auto) 0.5, Eos # (Auto) 0.1, Baso # (Auto) 0.02 - RAD Interpretation Radiology Orders: 08/13/17 17:48 CHEST PORTABLE [RAD] Stat 08/13/17 18:19 HEAD W/O CONTRAST [CT] Stat - Medication Orders Current Medication Orders: Aspirin (Ecotrin) 81 mg PO DAILY [facility] Docusate Sodium (Colace) 100 mg PO DAILY [facility] Famotidine (Pepcid) 40 mg PO HS [facility] Last Admin: 08/14/17 01:37 Dose: 40 mg Ferrous Sulfate (Feosol) 324 mg PO WM [facility] Fluticasone Propionate (Flonase) 0 actuation NS BID PRN PRN Reason: Sinus symptoms Home Med (Home Med) 2 unit INH BID [facility] Home Med (Home Med) 4 unit PO DAILY [facility] Latanoprost (Xalatan Opht) 0 ml OU HS [facility] Last Admin: 08/14/17 00:35 Dose: 2.5 ml Levothyroxine Sodium (Synthroid) 112 mcg PO DAILY [facility] Loratadine (Claritin) 10 mg PO DAILY [facility] Discontinued Medications Albuterol/Ipratropium (Duoneb 3 Mg/0.5 Mg (3 Ml) Ud) 3 ml IH Q15M STA Stop: 08/13/17 17:50 Last Admin: 08/13/17 17:58 Dose: 3 ml Disposition/Present on Arrival - Present on Arrival Any Indicators Present on Arrival: No History of DVT/PE: No History of Uncontrolled Diabetes: No Urinary Catheter: No History of Decub. Ulcer: No History Surgical Site Infection Following: None - Disposition Have Diagnosis and Disposition been Completed?: Yes Diagnosis: Chronic obstructive lung disease, Near syncope Disposition: HOSPITALIZED Disposition Time: 20:15 Patient Problems: Current Active Problems Problem Status Onset Chronic obstructive lung disease Acute Near syncope Acute Condition: STABLE
[2017-08-13 18:33] LABS: VENOUS BLOOD GAS BASE EXCESS 2.8 mmol/L (0.0-2.0); VENOUS BLOOD GAS PO2 167 mm/Hg (30-55); VENOUS BLOOD PH 7.44 (7.32-7.43)
[2017-08-13 18:35] LABS: BASO # 0.02 K/mm3 (0.0-2.0); BASO % 0.5 % (0.0-3.0); EOS # 0.1 (0.0-0.7); EOS % 1.9 % (1.5-5.0); GRAN # 1.98 (1.4-6.5); GRAN % 46.7 % (50.0-68.0); HEMOGLOBIN 10.4 g/dL (14.0-18.0); LYMPH # 1.7 (1.2-3.4); MEAN CELL VOLUME 89.6 fl (80.0-105.0); MEAN CORPUSCULAR HEMOGLOBIN 29.2 pg (25.0-35.0); MEAN CORPUSCULAR HGB CONC 32.6 g/dl (31.0-37.0); MEAN PLATELET VOLUME 12.3 fl (7.0-11.0); MONO # 0.5 (0.1-0.6); MONO % 10.9 % (1.0-6.0); RBC 3.56 10^6/uL (3.5-6.1); RED CELL DISTRIBUTION WIDTH 13.9 % (11.5-14.5); WHITE BLOOD COUNT 4.2 10^3/ul (4.5-11.0)
[2017-08-13 18:44] LABS: INR 1.09 (0.93-1.08); PARTIAL THROMBOPLASTIN TIME 33.1 Seconds (25.1-36.5); PROTHROMBIN TIME 12.4 SECONDS (9.4-12.5)
[2017-08-13 18:55] LABS: ALB/GLOB RATIO 1.2 (1.1-1.8); ALBUMIN 3.5 g/dL (3.0-4.8); ALT/SGPT 14 U/L (7-56); AST/SGOT 21 U/L (17-59); BLOOD UREA NITROGEN 13 mg/dL (7-21); CALCIUM 9.3 mg/dL (8.4-10.5); GFR AFRICAN-AMERICAN > 60; GFR NON-AFRICAN AMERICAN > 60
[2017-08-13 18:57] LABS: B-TYPE NATRIURETIC PEPTIDE 166 pg/mL (0-450); TROPONIN I < 0.01 ng/mL
[2017-08-13] MEDS ORDERED: Fluticasone Nasal 50 mcg/Spray NS PRN (21:35)
[2017-08-13] MEDS ORDERED: Latanoprost 2.5 ml Opht Soln OU SCH (22:00)
[2017-08-13 22:46] VITALS: BMI 30.8
[2017-08-13 22:51] LABS: TOTAL IRON BINDING CAPACITY 241 ug/dL (261-462)
[2017-08-13 22:57] LABS: % IRON SATURATION 34 % (20-55); IRON 83 ug/dL (45-180)
--- NOTE | 2017-08-14 00:02 | CP.PCM.PN ---
Subjective - Date & Time of Evaluation Date of Evaluation: 08/13/17 Time of Evaluation: 23:59 - Subjective Subjective: S: Nurse Nina calls and requests an order for catheterization. As per patient , he self catheterize about 5 times a day. Patient was seen at bedside. States that he has been self catheterizing for about 2 years. Has history of prostate cancer. Has no other complaints now. Medical record was reviewed. O: Last Vital Signs 3 Temp 97.5 F L 08/13/17 22:39 Pulse 82 08/13/17 19:28 Resp 18 08/13/17 22:39 BP 147/84 08/13/17 19:28 Pulse Ox 98 08/13/17 19:28 Awake, alert, not in distress. LUNGS: Normal breathing pattern. A:Chronic urinary retention. P: May self catheterize. Objective - Vital Signs/Intake and Output Vital Signs (last 24 hours): Temp Pulse Resp BP Pulse Ox 97.5 F L 82 18 147/84 98 08/13/17 22:39 08/13/17 19:28 08/13/17 22:39 08/13/17 19:28 08/13/17 19:28 - Medications Medications: Current Medications Aspirin (Ecotrin) 81 mg PO DAILY [facility] Docusate Sodium (Colace) 100 mg PO DAILY [facility] Famotidine (Pepcid) 40 mg PO HS [facility] Ferrous Sulfate (Feosol) 324 mg PO WM [facility] Fluticasone Propionate (Flonase) 0 actuation NS BID PRN PRN Reason: Sinus symptoms Latanoprost (Xalatan Opht) 0 ml OU HS [facility] Levothyroxine Sodium (Synthroid) 112 mcg PO DAILY [facility] Loratadine (Claritin) 10 mg PO DAILY [facility] Non-Formulary Medication (Budesonide/Formoterol Fumarate [Symbicort 160-4.5 Mcg Inhaler]) 2 puff IH BID [facility] Non-Formulary Medication (Enzalutamide [Xtandi]) 160 mg PO DAILY [facility] - Labs Labs: PT 12.4 SECONDS (9.4-12.5) 08/13/17 18:05 INR 1.09 (0.93-1.08) H 08/13/17 18:05 APTT 33.1 Seconds (25.1-36.5) 08/13/17 18:05
[2017-08-14 01:03] LABS: PH,URINE 5.5 (4.7-8.0); URINE BILIRUBIN NEGATIVE (NEGATIVE); URINE BLOOD NEGATIVE (NEGATIVE); URINE GLUCOSE (UA) NEGATIVE (NEGATIVE); URINE LEUKOCYTE ESTERASE NEGATIVE Leu/uL (NEGATIVE); URINE PROTEIN NEGATIVE mg/dL (<30 mg/dL); URINE UROBILINOGEN 0.2 E.U./dL (<1 E.U./dL)
[2017-08-14 01:06] LABS: URINE APPEARANCE CLEAR (CLEAR); URINE COLOR YELLOW (YELLOW)
[2017-08-14] MEDS ORDERED: Levothyroxine 112 MCG TAB PO STA (07:26)
[2017-08-14 07:27] LABS: HEMOGLOBIN 9.7 g/dL (14.0-18.0); MEAN CELL VOLUME 90.2 fl (80.0-105.0); MEAN CORPUSCULAR HEMOGLOBIN 28.8 pg (25.0-35.0); MEAN CORPUSCULAR HGB CONC 31.9 g/dl (31.0-37.0); MEAN PLATELET VOLUME 11.8 fl (7.0-11.0); RBC 3.37 10^6/uL (3.5-6.1); RED CELL DISTRIBUTION WIDTH 14.1 % (11.5-14.5); WHITE BLOOD COUNT 3.1 10^3/ul (4.5-11.0)
[2017-08-14 07:46] LABS: BLOOD UREA NITROGEN 11 mg/dL (7-21); CALCIUM 9.2 mg/dL (8.4-10.5); GFR AFRICAN-AMERICAN > 60; GFR NON-AFRICAN AMERICAN > 60
[2017-08-14] MEDS ORDERED: Albuterol-Ipratrop 3 mg / 0.5 (3 ml) UD IH PRN (09:15)
--- NOTE | 2017-08-14 09:18 | CARD ---
APPROVED REPORT EKG Measurement Heart [id number] <Conclusion> Normal sinus rhythm Left axis deviation Abnormal ECG
--- NOTE | 2017-08-14 09:54 | CT ---
PROCEDURE: CT HEAD WITHOUT CONTRAST. HISTORY: near syncope COMPARISON: 06/17/2017 TECHNIQUE: Axial computed tomography images were obtained through the head/brain without intravenous contrast. Radiation dose: Total exam DLP = mGy-cm. This CT exam was performed using one or more of the following dose reduction techniques: Automated exposure control, adjustment of the mA and/or kV according to patient size, and/or use of iterative reconstruction technique. FINDINGS: HEMORRHAGE: No intracranial hemorrhage. BRAIN: No mass effect or edema. Mild chronic periventricular white matter ischemic disease. VENTRICLES: Unremarkable. No hydrocephalus. CALVARIUM: Unremarkable. PARANASAL SINUSES: Unremarkable as visualized. No significant inflammatory changes. MASTOID AIR CELLS: Unremarkable as visualized. No inflammatory changes. OTHER FINDINGS: None. IMPRESSION: Normal CT of the Head.
--- NOTE | 2017-08-14 09:59 | RAD ---
HISTORY: Shortness of breath COMPARISON: 07/28/2017. FINDINGS: LUNGS: The lungs are well inflated. There is a stable large bulla in the right upper lobe. There is atelectasis/scarring in the right mid lung and left lower lobe. No focal consolidation. PLEURA: No significant pleural effusion identified, no pneumothorax apparent. CARDIOVASCULAR: There is mild cardiomegaly and unfolding of the aorta. OSSEOUS STRUCTURES: No significant abnormalities. VISUALIZED UPPER ABDOMEN: Normal. OTHER FINDINGS: None. IMPRESSION: No active pulmonary disease.
[2017-08-14] MEDS ORDERED: XTANDI 40 MG PO SCH (10:00)
[2017-08-14] MEDS ORDERED: ENZALUTAMIDE 160 MG PO SCH (10:00)
[2017-08-14] MEDS ORDERED: Levothyroxine 112 MCG TAB PO SCH (10:00)
[2017-08-14] MEDS ORDERED: Non Formulary Medication (Budesonide/Formoterol Fumarate [Symbicort 160-4.5 Mcg Inhaler] 2 IH SCH (10:00)
[2017-08-14] MEDS: Home Med - SYMBICORT 160/4.5 MCG INH SCH ×2 (10:15→17:24)
[2017-08-14 12:22] VITALS: PULSE 75
[2017-08-14 12:48] LABS: FOLATE 18.9 ng/mL
[2017-08-14 16:45] VITALS: BP 130/78; RESP 18; TEMP 98.2; O2SAT 98
--- NOTE | 2017-08-14 18:26 | CP.PCM.HP ---
History of Present Illness - History of Present Illness History of Present Illness: sob , chest pain 81yo male with past medical history of hypertension, prostate CA, COPD, vertigo who was bib EMS for complaint of dizziness and BARNES since this morning. States he usually use neb treatment 3times a day, but he states he almost "passed out" this morning and couldn't use his treatment. States this dizziness is different from his typical vertigo symptom. He otherwise denies chest pain, focal weakness , nausea, visual changes, vomiting, diarrhea, constipation, fever, chills, LE edema, calf pain, any other complaint. Present on Admission - Present on Admission Any Indicators Present on Admission: Yes Review of Systems - Constitutional Constitutional: Fatigue - EENT Eyes: As Per HPI Ears: As Per HPI Nose/Mouth/Throat: Nasal Congestion - Cardiovascular Cardiovascular: Chest Pain - Respiratory Respiratory: Cough, Wheezing - Gastrointestinal Gastrointestinal: As Per HPI - Musculoskeletal Musculoskeletal: As Per HPI - Neurological Neurological: As Per HPI - Psychiatric Psychiatric: As Per HPI Past Patient History - Infectious Disease Hx of Infectious Diseases: None - Tetanus Immunizations Tetanus Immunization: Unknown - Past Social History Smoking Status: Former Smoker - CARDIAC Hx Cardiac Disorders: Yes Hx Hypertension: Yes - PULMONARY Hx Chronic Obstructive Pulmonary Disease (COPD): Yes - NEUROLOGICAL Hx Neurological Disorder: Yes Hx Dizziness: Yes (VERTIGO) - HEENT Hx HEENT Problems: Yes (eyeglasses) Hx Cataracts: Yes Hx Glaucoma: Yes - RENAL Hx Chronic Kidney Disease: No - ENDOCRINE/METABOLIC Hx Diabetes Mellitus Type 2: Yes Hx Hypothyroidism: Yes - HEMATOLOGICAL/ONCOLOGICAL Hx Blood Disorders: Yes Hx Anemia: Yes Hx Cancer: Yes (PROSTATE-takes Zytiga) - INTEGUMENTARY Hx Dermatological Problems: No - MUSCULOSKELETAL/RHEUMATOLOGICAL Hx Arthritis: Yes - GASTROINTESTINAL Hx Gastrointestinal Disorders: No - GENITOURINARY/GYNECOLOGICAL Hx Genitourinary Disorders: No (UTI) Hx Reproductive Disorders: Yes (PROSTATE CA) - PSYCHIATRIC Hx Psychophysiologic Disorder: Yes Hx Anxiety: Yes Hx Substance Use: No - SURGICAL HISTORY Hx Surgeries: Yes (CYSTOSCOPY, TONSILLECTOMY) - ANESTHESIA Hx Anesthesia: Yes Hx Anesthesia Reactions: No Hx Malignant Hyperthermia: No Meds Allergies/Adverse Reactions: Allergies Allergy/AdvReac Type Severity Reaction Status Date / Time No Known Allergies Allergy Verified 08/13/ 17:24 Physical Exam - Constitutional Appears: Well - Head Exam Head Exam: ATRAUMATIC, NORMAL INSPECTION, NORMOCEPHALIC - Eye Exam Eye Exam: EOMI, Normal appearance, PERRL - ENT Exam ENT Exam: Mucous Membranes Moist, Normal Exam - Neck Exam Neck exam: Positive for: Full Rom, Normal Inspection - Respiratory Exam Respiratory Exam: Clear to Auscultation Bilateral, NORMAL BREATHING PATTERN - Cardiovascular Exam Cardiovascular Exam: REGULAR RHYTHM, +S1, +S2 - GI/Abdominal Exam GI & Abdominal Exam: Normal Bowel Sounds - Extremities Exam Extremities exam: Positive for: normal inspection - Neurological Exam Neurological exam: Alert, CN II-XII Intact, Normal Gait, Oriented x3 Results - Vital Signs Recent Vital Signs: Last Vital Signs Temp 98.2 F 08/14/17 16:44 Pulse 75 08/14/17 16:44 Resp 18 08/14/17 16:44 BP 130/78 08/14/17 16:44 Pulse Ox 98 08/14/17 16:44 - Labs Result Diagrams: 08/14/17 07:06 08/14/17 07:06 Labs: Laboratory Results - last 24 hr 08/13/17 08/13/17 08/13/17 22:32 22:32 22:33 WBC RBC Hgb Hct MCV MCH MCHC RDW Plt Count MPV Sodium Potassium Chloride Carbon Dioxide Anion Gap BUN Creatinine Est GFR ( Amer) Est GFR (Non-Af Amer) Random Glucose Hemoglobin A1c 6.7 H Calcium Iron 83 TIBC 241 L % Saturation 34 Triglycerides 98 Cholesterol 203 H LDL Cholesterol Direct 114 HDL Cholesterol 61 H Vitamin B12 654 Folate 18.9 TSH 3rd Generation Urine Color Urine Appearance Urine pH Ur Specific Doole Urine Protein Urine Glucose (UA) Urine Ketones Urine Blood Urine Nitrate Urine Bilirubin Urine Urobilinogen Ur Leukocyte Esterase 08/14/17 08/14/17 08/14/17 00:20 07:06 07:06 WBC 3.1 L D RBC 3.37 L Hgb 9.7 L Hct 30.4 L MCV 90.2 MCH 28.8 MCHC 31.9 RDW 14.1 Plt Count 142 MPV 11.8 H Sodium 143 Potassium 3.7 Chloride 109 H Carbon Dioxide 26 Anion Gap 12 BUN 11 Creatinine 0.9 Est GFR ( Amer) > 60 Est GFR (Non-Af Amer) > 60 Random Glucose 93 Hemoglobin A1c Calcium 9.2 Iron TIBC % Saturation Triglycerides Cholesterol LDL Cholesterol Direct HDL Cholesterol Vitamin B12 Folate TSH 3rd Generation Urine Color Yellow Urine Appearance Clear Urine pH 5.5 Ur Specific Doole 1.015 Urine Protein Negative Urine Glucose (UA) Negative Urine Ketones Negative Urine Blood Negative Urine Nitrate Negative Urine Bilirubin Negative Urine Urobilinogen 0.2 Ur Leukocyte Esterase Negative 08/14/17 07:06 WBC RBC Hgb Hct MCV MCH MCHC RDW Plt Count MPV Sodium Potassium Chloride Carbon Dioxide Anion Gap BUN Creatinine Est GFR ( Amer) Est GFR (Non-Af Amer) Random Glucose Hemoglobin A1c Calcium Iron TIBC % Saturation Triglycerides Cholesterol LDL Cholesterol Direct HDL Cholesterol Vitamin B12 Folate TSH 3rd Generation 1.38 Urine Color Urine Appearance Urine pH Ur Specific Doole Urine Protein Urine Glucose (UA) Urine Ketones Urine Blood Urine Nitrate Urine Bilirubin Urine Urobilinogen Ur Leukocyte Esterase Assessment & Plan (1) Chest pain Status: Acute (2) Chronic obstructive lung disease Status: Acute (3) 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 Status: Acute (4) Hyperlipidemia Status: Acute (5) Near syncope Status: Acute (6) JH (obstructive sleep apnea) Status: Acute (7) Pulmonary HTN Status: Acute (8) Shortness of breath Status: Acute (9) UTI (urinary tract infection) Status: Acute (10) Weakness Status: Acute (11) Anemia Status: Chronic (12) CA of prostate Status: Chronic (13) COPD with acute exacerbation Status: Chronic (14) HTN (hypertension) Status: Chronic - Assessment and Plan (Free Text) Assessment: 81yo male with past medical history of hypertension, prostate CA, COPD, vertigo who was bib EMS for complaint of dizziness and BARNES since this morning. States he usually use neb treatment 3times a day, but he states he almost "passed out" this morning and couldn't use his treatment. States this dizziness is different from his typical vertigo symptom. He otherwise denies chest pain, focal weakness , nausea, visual changes, vomiting, diarrhea, constipation, fever, chills, LE edema, calf pain, any other complaint. Plan: dcont, same meds /d with Lainey andujar , after caroted dopler of neck pt can go home , with f/u pcp pul.
--- NOTE | 2017-08-14 19:58 | US ---
PROCEDURE: Bilateral carotid artery duplex ultrasound HISTORY: Carotid stenosis dizziness PHYSICIAN(S): Donte Haney MD. TECHNIQUE: Duplex sonography and color-flow Doppler were used to evaluate the carotid bifurcations and limited segments of the vertebral arteries bilaterally. FINDINGS: There is mild smooth heterogeneous plaque noted at the carotid bifurcations bilaterally. The peak systolic velocity in the proximal right internal carotid artery is 64 cm/sec. This corresponds to a 20 to 39% proximal right ICA stenosis. Normal systolic velocities are noted in the proximal right external carotid artery. There is antegrade flow in the right vertebral artery. The peak systolic velocity in the proximal left internal carotid artery is 59 cm/sec. This corresponds to a 20 to 39% proximal left ICA stenosis. Normal systolic velocities are noted in the proximal left external carotid artery. There is antegrade flow in the left vertebral artery. IMPRESSION: 1. Bilateral 20-39% proximal ICA stenoses. 2. Antegrade flow in both vertebral arteries.
[2017-08-15] MEDS ORDERED: Levothyroxine 112 MCG TAB PO SCH (06:00)
--- NOTE | 2017-08-15 07:36 | CON ---
PULMONARY CONSULT REASON FOR CONSULT: Chronic lung disease, obstructive sleep apnea syndrome. HISTORY OF PRESENT ILLNESS: This is 81 years old gentleman well known to me from previous admission, recently discharged from the hospital, has a chronic obstructive lung disease, obstructive sleep apnea syndrome, history of metastatic prostate cancer, bladder outlet obstruction requiring self catheterization, apparently has a near syncopal episode, came into ER, was admitted, over night was unremarkable, tolerated CPAP well. This morning, he is ambulatory, feels okay. No headache, no rhinitis. No nausea. No leg pain or leg swelling. PAST MEDICAL HISTORY: As per history of present illness. ALLERGIES: NONE KNOWN. SOCIAL HISTORY: Stopped smoking and he any alcohol use. FAMILY HISTORY: No significant cardiopulmonary disease reported. MEDICATIONS: He is on Claritin 10 mg daily, Colace 100 mg daily, DuoNeb every 6 hours p.r.n., Ecotrin 81 mg daily, ferrous sulfate 324 mg with the meals, Flonase one spray each nostril twice a day, also on Pepcid 40 mg daily, prednisone 10 mg daily, Synthroid 112 mcg daily. REVIEW OF SYSTEMS: No headache. No rhinitis. No chest pain. No nausea. No vomiting. No diarrhea or dysuria. No leg pain or leg swelling. PHYSICAL EXAMINATION: GENERAL: In no acute distress. VITAL SIGNS: Temperature is 98, heart rate 75, respiratory rate is 20, blood pressure 130/78, pulse ox 98% on nasal cannula. HEENT: Moist mucous membrane. Crowded airway. NECK: Supple. No JVD. LUNGS: A fair airflow with rhonchi. HEART: S1 and S2. ABDOMEN: Soft, nontender. No organomegaly. EXTREMITIES: No edema. NEUROLOGIC: Awake, alert, and follows simple commands. LABORATORY DATA: Shows hemoglobin 9.7, hematocrit 30.4, WBC 3.1, and platelet count is 142. Sodium 143, potassium 3.7, chloride 109, bicarbonate 26. BUN 11, creatinine 0.9. Glucose 93. Calcium is 9.2. Microbiology: Blood culture has been negative. Has a CAT scan of the head done in ER last night, which shows unremarkable. Also had a chest x-ray done on admission, which shows no active pulmonary disease. IMPRESSION AND PLAN: Near syncope, chronic obstructive lung disease, obstructive sleep apnea syndrome, bladder outlet obstruction, metastatic prostate cancer, cardiomyopathy, anemia, hypertension, seasonal allergies. Pulmonary point of view, doing well. Continue CPAP 7 cm while sleeping. Keep head at 45 degrees. Inhale bronchodilator. Continue his home medication which is chemotherapy with steroids. Discharge planning as per Dr. Sheth. Thank you and we will follow with you. Christy Bartlett MD
--- NOTE | 2017-08-15 08:50 | DS ---
The patient is an 81-year-old male. I saw the patient only once. The patient was stable. No shortness of breath, nausea, vomiting, or diarrhea , after given nebulizer treatment. Ate food very well. Discharged home on the same day. For more details, see my history and physical. He will follow up in my office. Continue home medications. Megan Sheth MD MTDD
== END 2017-08-14 17:45 | disposition home or self-care (01) ==
LOC: ED 17:13 → ERH 19:32 → 2RSO 23:26
PROVIDERS: ADMIT Internal Medicine; ATTEND Internal Medicine
DX: J44.1 Chronic obstructive pulmonary disease with (acute) exacerbation (principal); R55 Syncope and collapse; D64.9 Anemia, unspecified; E03.9 Hypothyroidism, unspecified; E11.9 Type 2 diabetes mellitus without complications; R42 Dizziness and giddiness; E78.5 Hyperlipidemia, unspecified; C61 Malignant neoplasm of prostate; G47.33 Obstructive sleep apnea (adult) (pediatric); H40.9 Unspecified glaucoma; I10 Essential (primary) hypertension; I27.20 Pulmonary hypertension, unspecified; I42.9 Cardiomyopathy, unspecified; R33.9 Retention of urine, unspecified; J30.2 Other seasonal allergic rhinitis; N32.0 Bladder-neck obstruction; R53.1 Weakness; Z79.51 Long term (current) use of inhaled steroids; Z79.82 Long term (current) use of aspirin; Z87.891 Personal history of nicotine dependence; Z87.440 Personal history of urinary (tract) infections
CPT/HCPCS: 36415; 70450; 71045; 80048; 80053; 80061; 81003; 82550; 82607; 82746; 82803; 83036; 83540; 83550; 83615; 83735; 83880; 84443; 84484; 85025; 85027; 85610; 85730; 87040; 87081; 87086; 93005; 93880; 94640; 94660; 99285; G0378

== ENCOUNTER 2017-10-18 09:19 | Emergency (ER) | payer MEDICARE, MEDICAID ==
[2017-10-18 09:25] VITALS: BMI 30.1
--- NOTE | 2017-10-18 09:50 | ED PDOC ---
Arrival/HPI - General Chief Complaint: ENT Problem Time Seen by Provider: 10/18/17 09:44 Historian: Patient - History of Present Illness Narrative History of Present Illness (Text): 10/18/17 09:45 82yo male with pmhx of sleep apnea, hypothyroid bib EMS for nasal congestion since this morning. States he used his flonase this morning and feel it didn't help him. He however denies facial pain/pressure, headache, fever, cough, any other complaint. Past Medical History - Provider Review Nursing Documentation Reviewed: Yes - Past History Past History: No Previous - Infectious Disease Hx of Infectious Diseases: None - Tetanus Immunization Tetanus Immunization: Unknown - Cardiac Hx Cardiac Disorders: Yes Hx Hypertension: Yes - Pulmonary Hx Chronic Obstructive Pulmonary Disease (COPD): Yes - Neurological Hx Neurological Disorder: Yes Hx Dizziness: Yes (VERTIGO) - HEENT Hx HEENT Disorder: Yes (eyeglasses) Hx Cataracts: Yes Hx Glaucoma: Yes - Renal Hx Renal Disorder: No - Endocrine/Metabolic Hx Diabetes Mellitus Type 2: Yes Hx Hypothyroidism: Yes - Hematological/Oncological Hx Blood Disorders: Yes Hx Anemia: Yes Hx Cancer: Yes (PROSTATE-takes Zytiga) - Integumentary Hx Dermatological Disorder: No - Musculoskeletal/Rheumatological Hx Arthritis: Yes - Gastrointestinal Hx Gastrointestinal Disorders: No - Genitourinary/Gynecological Hx Genitourinary Disorders: No (UTI) Hx Reproductive Disorders: Yes (PROSTATE CA) - Psychiatric Hx Psychophysiologic Disorder: Yes Hx Anxiety: Yes Hx Substance Use: No - Anesthesia Hx Anesthesia: Yes Hx Anesthesia Reactions: No Hx Malignant Hyperthermia: No Family/Social History - Physician Review Nursing Documentation Reviewed: Yes Family/Social History: Unknown Family HX Smoking Status: Former Smoker Hx Alcohol Use: Yes (social) Hx Substance Use: No Hx Substance Use Treatment: No Allergies/Home Meds Allergies/Adverse Reactions: Allergies No Known Allergies Allergy (Verified 10/18/17 09:25) Home Medications: Home Meds Medication Instructions Recorded Confirmed Budesonide/Formoterol Fumarate 2 puff IH BID 03/18/17 08/13/17 [Symbicort 160-4.5 Mcg Inhaler] Fluticasone Nasal [Flonase] 2 spr NS BID PRN 03/18/17 08/13/17 Latanoprost 0.005% Opht [Xalatan 1 drp OU HS 03/18/17 08/13/17 Opht] Levothyroxine [Synthroid] 112 mcg PO DAILY 03/18/17 08/13/17 Aspirin [Ecotrin] 81 mg PO DAILY 06/17/17 08/13/17 Docusate [Colace] 100 mg PO DAILY 06/17/17 08/13/17 Enzalutamide [Xtandi] 160 mg PO DAILY 08/13/17 08/13/17 Review of Systems - Physician Review All systems were reviewed & negative as marked: Yes - Review of Systems Constitutional: Normal Eyes: Normal ENT: Sinus Congestion (Nasal congestion) Respiratory: Normal Cardiovascular: Normal Gastrointestinal: Normal Genitourinary Male: Normal Musculoskeletal: Normal Skin: Normal Neurological: Normal Endocrine: Normal Hemo/Lymphatic: Normal Psychiatric: Normal Physical Exam Vital Signs Reviewed: Yes Vital Signs Temp Pulse Resp BP Pulse Ox 10/18/17 14:00 98.0 F 69 19 99 10/18/17 12:28 98.0 F 63 18 97 10/18/17 10:11 97.6 F 59 L 18 148/73 94 L Temperature: Afebrile Blood Pressure: Normal Pulse: Regular Respiratory Rate: Normal Appearance: Positive for: Well-Appearing, Non-Toxic, Comfortable Pain Distress: None Mental Status: Positive for: Alert and Oriented X 3 - Systems Exam Head: Present: Atraumatic, Normocephalic Pupils: Present: PERRL Extroacular Muscles: Present: EOMI Conjunctiva: Present: Normal Mouth: Present: Moist Mucous Membranes Nose (Internal): No: Engorged, Edematous, Boggy, Rhinorrhea Neck: Present: Normal Range of Motion Respiratory/Chest: Present: Clear to Auscultation, Good Air Exchange. No: Respiratory Distress, Accessory Muscle Use Cardiovascular: Present: Regular Rate and Rhythm, Normal S1, S2. No: Murmurs Abdomen: No: Tenderness, Distention, Peritoneal Signs Back: Present: Normal Inspection Upper Extremity: Present: Normal Inspection. No: Cyanosis, Edema Lower Extremity: Present: Normal Inspection. No: Edema Neurological: Present: GCS=15, CN II-XII Intact, Speech Normal Skin: Present: Warm, Dry, Normal Color. No: Rashes Psychiatric: Present: Alert, Oriented x 3, Normal Insight, Normal Concentration Medical Decision Making ED Course and Treatment: 10/18/17 19:18 82yo male bib EMS for nasal congestion. He was not in any distress. Not hypoxic and hemodynamically stable. He was treated with claritin in ED. He was noted ambulating in ED and ate couple of sandwiches in ED. He was DC home with Claritin and referred to his PMD. - Medication Orders Current Medication Orders: Discontinued Medications Loratadine (Claritin) 10 mg PO ONCE ONE Stop: 10/18/17 09:45 Last Admin: 10/18/17 10:03 Dose: 10 mg Disposition/Present on Arrival - Present on Arrival Any Indicators Present on Arrival: No History of DVT/PE: No History of Uncontrolled Diabetes: No Urinary Catheter: No History of Decub. Ulcer: No History Surgical Site Infection Following: None - Disposition Have Diagnosis and Disposition been Completed?: Yes Diagnosis: Nasal congestion Disposition: HOME/ ROUTINE Disposition Time: 09:55 Patient Plan: Discharge Condition: STABLE Discharge Instructions (ExitCare): Cetirizine and Pseudoephedrine Additional Instructions: Follow up with your Doctor Return to ED for any new or worsening symptoms Prescriptions: Loratadine/Pseudoephedrine [Claritin-D 24 Hour Tablet] 1 each PO DAILY #20 tab.er.24h Referrals: Lorena Sesay MD [Medical Doctor] - Follow up with primary Forms: [employer] (Swedish)
[2017-10-18 10:13] VITALS: BP 148/73
[2017-10-18 12:29] VITALS: TEMP 98
[2017-10-18 16:55] VITALS: PULSE 69; RESP 19; O2SAT 99
== END 2017-10-18 14:00 | disposition home or self-care (01) ==
LOC: ED 09:19
DX: R09.81 Nasal congestion (principal); E11.9 Type 2 diabetes mellitus without complications; I10 Essential (primary) hypertension; E03.9 Hypothyroidism, unspecified; Z87.891 Personal history of nicotine dependence; Z85.46 Personal history of malignant neoplasm of prostate

== ENCOUNTER 2017-11-05 14:02 | Emergency (ER) | payer MEDICARE, MEDICAID ==
[2017-11-05 14:03] VITALS: BMI 30.1
[2017-11-05 14:39] VITALS: BP 118/73; PULSE 71; RESP 18; TEMP 98.3; O2SAT 99
--- NOTE | 2017-11-05 15:26 | ED PDOC ---
Arrival/HPI - General Chief Complaint: Male Genitourinary Time Seen by Provider: 11/05/17 14:13 Historian: Patient - History of Present Illness Narrative History of Present Illness (Text): you were treated in the ED today for hx of hypertension, COPD, Vertigo, Diabetes , Hypothyroid, Prostate Cancer and self catheterizes for urination and ran out of 14french catheter supplies and have been having burning sensation with urinations and otherwise without any nausea/vomiting/headache/dizziness/ difficulty breathing/chest pain/abdomen pain/numbness/tingling/loss of limb function/urine bleeding. Time/Duration: Other (2 days) Symptom Onset: Gradual Symptom Course: Unchanged Quality: Burning Severity Level: 1 Activities at Onset: Rest Context: Sitting Past Medical History - Provider Review Nursing Documentation Reviewed: Yes - Travel History Have you recently traveled outside [place] w/in the past 3 mons?: No - Past History Past History: No Previous - Infectious Disease Hx of Infectious Diseases: None - Tetanus Immunization Tetanus Immunization: Unknown - Cardiac Hx Cardiac Disorders: Yes Hx Hypertension: Yes - Pulmonary Hx Chronic Obstructive Pulmonary Disease (COPD): Yes - Neurological Hx Neurological Disorder: Yes Hx Dizziness: Yes (VERTIGO) - HEENT Hx HEENT Disorder: Yes (eyeglasses) Hx Cataracts: Yes Hx Glaucoma: Yes - Renal Hx Renal Disorder: No - Endocrine/Metabolic Hx Diabetes Mellitus Type 2: Yes Hx Hypothyroidism: Yes - Hematological/Oncological Hx Blood Disorders: Yes Hx Anemia: Yes Hx Cancer: Yes (PROSTATE-takes Zytiga) - Integumentary Hx Dermatological Disorder: No - Musculoskeletal/Rheumatological Hx Arthritis: Yes - Gastrointestinal Hx Gastrointestinal Disorders: No - Genitourinary/Gynecological Hx Genitourinary Disorders: No (UTI) Hx Reproductive Disorders: Yes (PROSTATE CA) - Psychiatric Hx Psychophysiologic Disorder: Yes Hx Anxiety: Yes Hx Substance Use: No - Anesthesia Hx Anesthesia: Yes Hx Anesthesia Reactions: No Hx Malignant Hyperthermia: No Family/Social History - Physician Review Nursing Documentation Reviewed: Yes Family/Social History: No Known Family HX Smoking Status: Former Smoker Hx Alcohol Use: Yes (social) Hx Substance Use: No Hx Substance Use Treatment: No Allergies/Home Meds Allergies/Adverse Reactions: Allergies No Known Allergies Allergy (Verified 10/18/17 09:25) Home Medications: Home Meds Medication Instructions Recorded Confirmed Budesonide/Formoterol Fumarate 2 puff IH BID 03/18/17 08/13/17 [Symbicort 160-4.5 Mcg Inhaler] Fluticasone Nasal [Flonase] 2 spr NS BID PRN 03/18/17 08/13/17 Latanoprost 0.005% Opht [Xalatan 1 drp OU HS 03/18/17 08/13/17 Opht] Levothyroxine [Synthroid] 112 mcg PO DAILY 03/18/17 08/13/17 Aspirin [Ecotrin] 81 mg PO DAILY 06/17/17 08/13/17 Docusate [Colace] 100 mg PO DAILY 06/17/17 08/13/17 Enzalutamide [Xtandi] 160 mg PO DAILY 08/13/17 08/13/17 Review of Systems - Review of Systems Constitutional: Normal Eyes: Normal ENT: Normal Respiratory: Normal Cardiovascular: Normal Gastrointestinal: Normal Genitourinary Male: Dysuria Musculoskeletal: Normal Skin: Normal Neurological: Normal Endocrine: Normal Hemo/Lymphatic: Normal Psychiatric: Normal Physical Exam Vital Signs Reviewed: Yes Vital Signs Temp Pulse Resp BP Pulse Ox 11/05/17 14:35 98.3 F 71 18 118/73 99 Temperature: Afebrile Blood Pressure: Normal Pulse: Regular Respiratory Rate: Normal Appearance: Positive for: Well-Appearing, Non-Toxic, Comfortable Pain Distress: None Mental Status: Positive for: Alert and Oriented X 3 - Systems Exam Head: Present: Atraumatic, Normocephalic Pupils: Present: PERRL Extroacular Muscles: Present: EOMI Conjunctiva: Present: Normal Ears: Present: Normal Mouth: Present: Moist Mucous Membranes Pharnyx: Present: Normal Nose (External): Present: Atraumatic Nose (Internal): Present: Normal Inspection Neck: Present: Normal Range of Motion Respiratory/Chest: Present: Clear to Auscultation, Good Air Exchange Cardiovascular: Present: Regular Rate and Rhythm Abdomen: No: Tenderness, Distention, Normal Bowel Sounds, Peritoneal Signs, Rebound, Guarding, McBurney's Point Tender, Rovsing's Sign Present, Hernias, Feeding Tubes, Ostomy Tubes, Mass/Organomegaly, Scars, Other Genitourinary Male: Present: Normal External Genitalia, Circumcised Penis, Other (no penis/scrotum/testicular lesions and good cremasteric reflex/good testicular position and no either testicular tenderness.). No: Lesions, Penile Discharge, Testicle Tenderness, Penile Swelling, Masses, Erythema, Hernias, Testicle Swelling, Prostate Tenderness, Prostate Enlargement Back: Present: Normal Inspection. No: CVA Tenderness, Midline Tenderness, Paraspinal Tenderness, Pain with Leg Raise, Decubitus Ulcer, Other Upper Extremity: Present: Normal Inspection Lower Extremity: Present: Normal Inspection Neurological: Present: GCS=15, CN II-XII Intact, Speech Normal, Motor Func Grossly Intact Skin: Present: Warm, Normal Color Psychiatric: Present: Alert, Oriented x 3, Normal Insight, Normal Concentration Medical Decision Making ED Course and Treatment: you were treated in the ED today for hx of hypertension, COPD, Vertigo, Diabetes , Hypothyroid, Prostate Cancer and self catheterizes for urination and ran out of 14french catheter supplies and have been having burning sensation with urinations and otherwise without any nausea/vomiting/headache/dizziness/ difficulty breathing/chest pain/abdomen pain/numbness/tingling/loss of limb function/urine bleeding. You were otherwise breathing easily, smiling and talking easily, good strength/sensation, walking easily, clear lungs, no abdomen tenderness, no penis/scrotum/testicular lesions and good cremasteric reflex/good testicular position and no either testicular tenderness. no either side lower back tenderness/no spinal tenderness or redness, no fever temp 98.3, stable heart rate 71, stable breathing rate 18, excellent oxygen level 99% room air, stable blood pressure 118/73 which we recommend repeat in 2-3 days primary care office to determine further treatment, urine test trace blood and large leukocytes, macrobid, observation done in the ED with improvement, counselled to monitor symptoms and thus discharged home. 1. Recommend macrobid as directed for urine infection control. pyridium as directed for urinary burning. 2. Recommend renewal urine catheters 14 surinamese as you requested. 3. Recommend follow-up primary care 2-3 days to review symptoms, get final urine culture report to determine further treatment, urology referral to review your symptoms/ trace blood in urine to ensure further care. 4. If any worsening pain, fever, chills, nausea, vomiting, difficulty breathing, numbness, loss of limb function , pain with urination or any medical condition then return to the ED. Reassessment Condition: Re-examined, Improved - Lab Interpretations Lab Results: Lab Results 11/05/17 15:51: Urine Color Yellow, Urine Appearance Sl cloudy, Urine pH 6.0, Ur Specific [place] 1.015, Urine Protein Negative, Urine Glucose (UA) Negative, Urine Ketones Negative, Urine Blood Trace-lysed H, Urine Nitrate Negative, Urine Bilirubin Negative, Urine Urobilinogen 0.2, Ur Leukocyte Esterase Large H , Urine RBC 2 - 5, Urine WBC 25 - 30, Ur Epithelial Cells 6 - 8, Urine Bacteria Mod I have reviewed the lab results: Yes - Medication Orders Current Medication Orders: Nitrofurantoin Macrocrystals (Macrobid) 100 mg PO STAT STA PRN Reason: Protocol Stop: 11/05/17 16:25 Disposition/Present on Arrival - Present on Arrival Any Indicators Present on Arrival: No History of DVT/PE: No History of Uncontrolled Diabetes: No Urinary Catheter: No History of Decub. Ulcer: No History Surgical Site Infection Following: None - Disposition Have Diagnosis and Disposition been Completed?: Yes Diagnosis: UTI (urinary tract infection) Disposition: HOME/ ROUTINE Disposition Time: 16:27 Patient Plan: Discharge Condition: IMPROVED Discharge Instructions (ExitCare): Urinary Tract Infection, Adult (DC) Additional Instructions: you were treated in the ED today for hx of hypertension, COPD, Vertigo, Diabetes , Hypothyroid, Prostate Cancer and self catheterizes for urination and ran out of 14french catheter supplies and have been having burning sensation with urinations and otherwise without any nausea/vomiting/headache/dizziness/ difficulty breathing/chest pain/abdomen pain/numbness/tingling/loss of limb function/urine bleeding. You were otherwise breathing easily, smiling and talking easily, good strength/sensation, walking easily, clear lungs, no abdomen tenderness, no penis/scrotum/testicular lesions and good cremasteric reflex/good testicular position and no either testicular tenderness. no either side lower back tenderness/no spinal tenderness or redness, no fever temp 98.3, stable heart rate 71, stable breathing rate 18, excellent oxygen level 99% room air, stable blood pressure 118/73 which we recommend repeat in 2-3 days primary care office to determine further treatment, urine test trace blood and large leukocytes, macrobid, observation done in the ED with improvement, counselled to monitor symptoms and thus discharged home. 1. Recommend macrobid as directed for urine infection control. pyridium as directed for urinary burning. 2. Recommend renewal urine catheters 14 surinamese as you requested. 3. Recommend follow-up primary care 2-3 days to review symptoms, get final urine culture report to determine further treatment, urology referral to review your symptoms/ trace blood in urine to ensure further care. 4. If any worsening pain, fever, chills, nausea, vomiting, difficulty breathing, numbness, loss of limb function , pain with urination or any medical condition then return to the ED. Prescriptions: Catheter 1 each MC DAILY PRN 14 Days #30 each PRN Reason: Other Nitrofurantoin Macrocrystals [Macrobid] 100 mg PO Q12 7 Days #14 cap Phenazopyridine HCl [Pyridium] 100 mg PO Q8 PRN 2 Days #6 tablet PRN Reason: urinary burning Referrals: Megan Sheth MD [Primary Care Provider] - Follow up with primary Forms: [facility] ([place]ovenian)
[2017-11-05 15:56] LABS: URINE BILIRUBIN NEGATIVE (NEGATIVE); URINE BLOOD TRACE-LYSED (NEGATIVE); URINE GLUCOSE (UA) NEGATIVE (NEGATIVE); URINE LEUKOCYTE ESTERASE LARGE Leu/uL (NEGATIVE); URINE PROTEIN NEGATIVE mg/dL (<30 mg/dL); URINE UROBILINOGEN 0.2 E.U./dL (<1 E.U./dL)
[2017-11-05 15:59] LABS: URINE APPEARANCE SL CLOUDY (CLEAR); URINE COLOR YELLOW (YELLOW)
[2017-11-05 16:07] LABS: URINE BACTERIA MOD (NEG); URINE WBC 25 - 30 /hpf (0-6)
== END 2017-11-05 15:30 | disposition home or self-care (01) ==
LOC: ED 14:02
DX: N39.0 Urinary tract infection, site not specified (principal)

== ENCOUNTER 2017-11-10 19:50 | Inpatient (IN) | payer MEDICARE, MEDICAID ==
[2017-11-10 19:50] VITALS: BMI 30.1
--- NOTE | 2017-11-10 20:38 | ED PDOC ---
Arrival/HPI - General Chief Complaint: Male Genitourinary Time Seen by Provider: 11/10/17 20:23 Historian: Patient - History of Present Illness Narrative History of Present Illness (Text): 11/10/17 20:35 Patient is an 82 yo male, past medical history of copd, hx of prostate disease, hx of self catheterization, presents to the Emergency Department with severe dysuria. Reports pain with any urination. Denies nausea or vomiting. Denies flank pain. Denies shortness of breath. States that when he catheterizes himself for urine it is painful but "normal amount comes out". He also states that urine is red but "it's from the medicine they started me on". Denies fevers or chills. Time/Duration: Prior to Arrival Symptom Onset: Gradual Past Medical History - Past History Past History: No Previous - Infectious Disease Hx of Infectious Diseases: None - Tetanus Immunization Tetanus Immunization: Unknown - Cardiac Hx Cardiac Disorders: Yes Hx Hypertension: Yes - Pulmonary Hx Chronic Obstructive Pulmonary Disease (COPD): Yes - Neurological Hx Neurological Disorder: Yes Hx Dizziness: Yes (VERTIGO) - HEENT Hx HEENT Disorder: Yes (eyeglasses) Hx Cataracts: Yes Hx Glaucoma: Yes - Renal Hx Renal Disorder: No - Endocrine/Metabolic Hx Diabetes Mellitus Type 2: Yes Hx Hypothyroidism: Yes - Hematological/Oncological Hx Blood Disorders: Yes Hx Anemia: Yes Hx Cancer: Yes (PROSTATE-takes Zytiga) - Integumentary Hx Dermatological Disorder: No - Musculoskeletal/Rheumatological Hx Arthritis: Yes - Gastrointestinal Hx Gastrointestinal Disorders: No - Genitourinary/Gynecological Hx Genitourinary Disorders: No (UTI) Hx Reproductive Disorders: Yes (PROSTATE CA) - Psychiatric Hx Psychophysiologic Disorder: Yes Hx Anxiety: Yes Hx Substance Use: No - Anesthesia Hx Anesthesia: Yes Hx Anesthesia Reactions: No Hx Malignant Hyperthermia: No Family/Social History Family/Social History: Unknown Family HX Smoking Status: Former Smoker Hx Alcohol Use: Yes (social) Hx Substance Use: No Hx Substance Use Treatment: No Allergies/Home Meds Allergies/Adverse Reactions: Allergies No Known Allergies Allergy (Verified 10/18/17 09:25) Home Medications: Home Meds Medication Instructions Recorded Confirmed Budesonide/Formoterol Fumarate 2 puff IH BID 03/18/17 08/13/17 [Symbicort 160-4.5 Mcg Inhaler] Fluticasone Nasal [Flonase] 2 spr NS BID PRN 03/18/17 08/13/17 Latanoprost 0.005% Opht [Xalatan 1 drp OU HS 03/18/17 08/13/17 Opht] Levothyroxine [Synthroid] 112 mcg PO DAILY 03/18/17 08/13/17 Aspirin [Ecotrin] 81 mg PO DAILY 06/17/17 08/13/17 Docusate [Colace] 100 mg PO DAILY 06/17/17 08/13/17 Enzalutamide [Xtandi] 160 mg PO DAILY 08/13/17 08/13/17 Review of Systems - Review of Systems Constitutional: Fatigue. absent: Fevers Respiratory: absent: SOB, Cough Cardiovascular: absent: Chest Pain Gastrointestinal: Abdominal Pain. absent: Nausea, Vomiting Genitourinary Male: Dysuria. absent: Hematuria Musculoskeletal: absent: Back Pain, Neck Pain Skin: absent: Rash Neurological: absent: Headache, Dizziness Endocrine: absent: Polyuria Hemo/Lymphatic: absent: Easy Bleeding Physical Exam Vital Signs Reviewed: Yes Vital Signs Temp Pulse Resp BP Pulse Ox 11/10/17 19:50 98.3 F 80 18 143/95 H 96 Temperature: Afebrile Appearance: Positive for: Uncomfortable Pain Distress: Moderate Mental Status: Positive for: Alert and Oriented X 3 - Systems Exam Head: Present: Atraumatic Mouth: Present: Moist Mucous Membranes Pharnyx: No: ERYTHEMA Nose (Internal): Present: Normal Inspection Neck: Present: Normal Range of Motion. No: Meningeal Signs Respiratory/Chest: Present: Decreased Breath Sounds. No: Respiratory Distress Cardiovascular: Present: Regular Rate and Rhythm Abdomen: No: Tenderness, Distention Genitourinary Male: Present: Other (positive cremaster reflex, no testicular erythema or edema). No: Erythema Back: Present: Paraspinal Tenderness. No: CVA Tenderness, Midline Tenderness, Pain with Leg Raise, Decubitus Ulcer Upper Extremity: No: Cyanosis, Edema Lower Extremity: No: Edema, CALF TENDERNESS Neurological: Present: Motor Func Grossly Intact, Normal Sensory Function Skin: Present: Warm Psychiatric: Present: Alert Medical Decision Making ED Course and Treatment: 11/10/17 21:45 Patient's prior visit reviewed. Addendum to previous chart regarding positive urine culture reviewed. Patient on exam with increasing dysuria, although he denies retention as he states he has self cath for urine and did so prior to arrival and "normal" amount came out. Patient also with lower suprapubic discomfort. Currently no flank pain, no fever, nontoxic appearing but uncomfortable. No back pain. No chills. No cough or respiratory distress. Patient will be admitted for iv antibiotics for failure of outpatient treatment , UTI. Urine culture sensitivities reviewed and patient and patient ordered cefepime. I consulted with Dr. Kyle Goldstein regarding UTI, will admit to DR. Sheth's service. 11/10/17 23:43 EKG: Ordered, reviewed, and independently interpreted the EKG. Rate : 72 BPM Rhythm : NSR Interpretation : No ST-segment elevations or depressions, no T-wave inversions, normal intervals, left axis deviation. Comparison : No previous EKG for comparison. 11/11/17 12:33 CT abdomen/pelvis reviewed. On re-exam, pain improved after IV pain medication and he is resting comfortably. CT reveals bony metastases. Patient admitted to Dr. Sheth's service and admission reviewed with PMD. - Lab Interpretations Lab Results: 11/10/17 21:05 11/10/17 21:05 Lab Results 11/10/17 21:08: Urine Color Dark yellow, Urine Appearance Sl cloudy, Urine pH 6.0, Ur Specific [place] 1.010, Urine Protein 100 H, Urine Glucose (UA) Negative , Urine Ketones Negative, Urine Blood Small H, Urine Nitrate Positive H, Urine Bilirubin Negative, Urine Urobilinogen 1.0 H, Ur Leukocyte Esterase Large H, Urine RBC 2 - 5, Urine WBC 25 - 30, Ur Epithelial Cells 0 - 2, Urine Bacteria Many 11/10/17 21:05: Sodium 137, Potassium 4.1, Chloride 104, Carbon Dioxide 23, Anion Gap 15, BUN 21, Creatinine 0.9, Est GFR ( Amer) > 60, Est GFR (Non- Af Amer) > 60, Random Glucose 101, Calcium 9.8, Total Bilirubin 0.6, AST 26, ALT 12, Alkaline Phosphatase 454 H, Total Protein 7.8, Albumin 4.4, Globulin 3.4 , Albumin/Globulin Ratio 1.3 11/10/17 21:05: WBC 5.6 D, RBC 4.43, Hgb 12.6 L D, Hct 38.8 L, MCV 87.6, MCH 28.4, MCHC 32.5, RDW 13.7, Plt Count 167, MPV 11.9 H, Gran % 53.2, Lymph % (Auto ) 32.6, [place] % (Auto) 10.2 H, Eos % (Auto) 3.6, Baso % (Auto) 0.4, Gran # 2.97, Lymph # (Auto) 1.8, [place] # (Auto) 0.6, Eos # (Auto) 0.2, Baso # (Auto) 0.02 - RAD Interpretation Radiology Orders: 11/10/17 20:44 ABD & PELVIS W/O PO OR IV CONT [CT] Stat 11/10/17 21:39 CHEST ONE VIEW [RAD] Stat - Medication Orders Current Medication Orders: Aspirin (Ecotrin) 81 mg PO DAILY [facility] Last Admin: 11/11/17 10:55 Dose: 81 mg Docusate Sodium (Colace) 100 mg PO DAILY [facility] Last Admin: 11/11/17 10:55 Dose: 100 mg Last Bowel Movement Document 11/11/17 10:55 NGOLK (Rec: 11/11/17 11:05 NGOLK [id number]) Last Bowel Movement Last Bowel Movement 11/09/17 Famotidine (Pepcid) 20 mg PO HS KRYS Ferrous Sulfate (Feosol) 324 mg PO WM [facility] Last Admin: 11/11/17 08:25 Dose: 324 mg Fluticasone Propionate (Flonase) 1 actuation NS BID PRN PRN Reason: Sinus symptoms Home Med (Home Med) 4 unit PO DAILY KRYS Last Admin: 11/11/17 10:55 Dose: 4 unit Sodium Chloride (Sodium Chloride 0.9%) 1,000 mls @ 100 mls/hr IV .Q10H KRYS Last Admin: 11/11/17 08:27 Dose: 100 mls/hr eMAR Start Stop Document 11/11/17 08:27 NGOLK (Rec: 11/11/17 08:27 NGOLK [id number]) Intravenous Solution Start Date 11/11/17 Start Time 08:27 Meropenem (Merrem Iv 1 Gm Premix) 50 mls @ 100 mls/hr IVPB Q8 KRYS PRN Reason: Protocol Stop: 11/20/17 07:46 Last Admin: 11/11/17 08:24 Dose: 100 mls/hr eMAR Start Stop Document 11/11/17 08:24 NGRACH (Rec: 11/11/17 08:25 NGRACH [id number]) Intravenous Solution Start Date 11/11/17 Start Time 08:25 Latanoprost (Xalatan Opht) 0 ml OU HS [facility] Levothyroxine Sodium (Synthroid) 112 mcg PO 0600 [facility] Last Admin: 11/11/17 05:30 Dose: 112 mcg Loratadine (Claritin) 10 mg PO DAILY [facility] Last Admin: 11/11/17 10:55 Dose: 10 mg Budesonide/Formoterol Fumarate [Symbicort 160-4.5 Mcg Inhaler] (Home Med) 2 puff IH BID [facility] Last Admin: 11/11/17 11:10 Dose: Non-Formulary Medication (Catheter [Catheter]) 1 each MC DAILY PRN PRN Reason: Other Loratadine/Pseudoephedrine [ Claritin-D 24 Hour Tablet] (Home Med) 1 each PO DAILY [facility] Last Admin: 11/11/17 11:09 Dose: Methenamine Hippurate [Hiprex] 1 Gm (Home Med) 1 gm PO BID [facility] Last Admin: 11/11/17 11:10 Dose: Phenazopyridine HCl (Pyridium) 100 mg PO Q8 PRN PRN Reason: urinary burning Last Admin: 11/11/17 11:04 Dose: 100 mg Tramadol HCl (Ultram) 50 mg PO TID PRN PRN Reason: Pain, Mild (1-3) Last Admin: 11/11/17 01:15 Dose: 50 mg MAR Pain Assessment Document 11/11/17 01:15 BR (Rec: 11/11/17 01:15 BR [facility] [id number]) Pain Reassessment Is this a pain reassessment? No Sleep Is patient sleeping during reassessment? No Presence of Pain Presence of Pain Yes Discontinued Medications Fluticasone Propionate (Flonase) 0 actuation NS BID PRN PRN Reason: Sinus symptoms Cefepime HCl (Maxipime 1gm) 1 gm in 100 mls @ 100 mls/hr IVPB STAT STA PRN Reason: Protocol Stop: 11/10/17 22:58 Last Admin: 11/10/17 22:57 Dose: 100 mls/hr eMAR Start Stop Document 11/10/17 22:57 IT (Rec: 11/10/17 22:57 IT [id number]) Intravenous Solution Start Date 11/10/17 Start Time 22:57 Morphine Sulfate (Morphine) 2 mg IVP STAT STA Stop: 11/10/17 21:50 Last Admin: 11/10/17 21:57 Dose: 2 mg MAR Pain Assessment Document 11/10/17 21:57 IT (Rec: 11/10/17 21:57 IT [id number]) Pain Reassessment Is this a pain reassessment? No Sleep Is patient sleeping during reassessment? No Presence of Pain Presence of Pain Yes IVP Administration Document 11/10/17 21:57 IT (Rec: 11/10/17 21:57 IT [id number]) Charges for Administration # of IVP Administrations 1 Disposition/Present on Arrival - Present on Arrival Any Indicators Present on Arrival: No History of DVT/PE: No History of Uncontrolled Diabetes: No Urinary Catheter: No History of Decub. Ulcer: No History Surgical Site Infection Following: None - Disposition Have Diagnosis and Disposition been Completed?: Yes Diagnosis: UTI (urinary tract infection), Abdominal pain, Bony metastasis Disposition: HOSPITALIZED Disposition Time: 21:48 Patient Plan: Admission Patient Problems: Current Active Problems Problem Status Onset Abdominal pain Acute UTI (urinary tract infection) Acute Condition: SERIOUS
[2017-11-10] MEDS ORDERED: Morphine 2 mg/ml ISec IVP STA ×2 (20:51→21:49)
[2017-11-10] MEDS ORDERED: Cefepime 1gm in NS 100ml 1 GM/100 ML BAG IVPB STA ×2 (21:16→21:59)
[2017-11-10 21:19] LABS: URINE BILIRUBIN NEGATIVE (NEGATIVE); URINE BLOOD SMALL (NEGATIVE); URINE GLUCOSE (UA) NEGATIVE (NEGATIVE); URINE LEUKOCYTE ESTERASE LARGE Leu/uL (NEGATIVE); URINE PROTEIN 100 mg/dL (<30 mg/dL)
[2017-11-10 21:19] LABS: BASO # 0.02 K/mm3 (0.0-2.0); BASO % 0.4 % (0.0-3.0); EOS # 0.2 (0.0-0.7); EOS % 3.6 % (1.5-5.0); GRAN # 2.97 (1.4-6.5); GRAN % 53.2 % (50.0-68.0); HEMOGLOBIN 12.6 g/dL (14.0-18.0); LYMPH # 1.8 (1.2-3.4); LYMPH % 32.6 % (22.0-35.0); MEAN CELL VOLUME 87.6 fl (80.0-105.0); MEAN CORPUSCULAR HEMOGLOBIN 28.4 pg (25.0-35.0); MEAN CORPUSCULAR HGB CONC 32.5 g/dl (31.0-37.0); MEAN PLATELET VOLUME 11.9 fl (7.0-11.0); MONO # 0.6 (0.1-0.6); MONO % 10.2 % (1.0-6.0); RBC 4.43 10^6/uL (3.5-6.1); RED CELL DISTRIBUTION WIDTH 13.7 % (11.5-14.5); WHITE BLOOD COUNT 5.6 10^3/ul (4.5-11.0)
[2017-11-10 21:25] LABS: ALB/GLOB RATIO 1.3 (1.1-1.8); ALBUMIN 4.4 g/dL (3.0-4.8); ALT/SGPT 12 U/L (7-56); AST/SGOT 26 U/L (17-59); BLOOD UREA NITROGEN 21 mg/dL (7-21); CALCIUM 9.8 mg/dL (8.4-10.5); GFR NON-AFRICAN AMERICAN > 60
[2017-11-10 21:26] LABS: URINE APPEARANCE SL CLOUDY (CLEAR); URINE COLOR DARK YELLOW (YELLOW)
[2017-11-10 21:40] LABS: URINE BACTERIA MANY (NEG); URINE EPITHELIAL CELLS 0 - 2 /hpf (0-5); URINE WBC 25 - 30 /hpf (0-6)
[2017-11-10] MEDS: Sodium Chloride 0.9% 1,000 ML IV SCH (21:57)
[2017-11-10 22:22] LABS: VENOUS BLOOD GAS BASE EXCESS -1.3 mmol/L (0.0-2.0); VENOUS BLOOD GAS PO2 222 mm/Hg (30-55); VENOUS BLOOD PH 7.38 (7.32-7.43)
[2017-11-11] MEDS ORDERED: Fluticasone Nasal 50 mcg/Spray NS PRN ×2 (00:24→03:57)
[2017-11-11] MEDS ORDERED: CATHETER MC PRN (00:24)
[2017-11-11] MEDS: METHENAMINE HIPPURATE 1 GM PO SCH ×3 (04:30→18:48)
[2017-11-11] MEDS: Levothyroxine 112 MCG TAB PO SCH (05:30)
[2017-11-11] MEDS: Meropenem IV 1 gm in NS 50 ML IVPB SCH ×3 (08:24→22:07)
[2017-11-11] MEDS: Sodium Chloride 0.9% 1,000 ML IV SCH ×2 (08:27→21:00)
[2017-11-11] MEDS ORDERED: ENZALUTAMIDE 160 MG PO SCH (10:00)
[2017-11-11] MEDS ORDERED: Fluticasone Nasal 50 mcg/Spray NS SCH (10:00)
--- NOTE | 2017-11-11 10:34 | CT ---
Date of service: 11/10/2017 PROCEDURE: CT Abdomen and Pelvis without intravenous contrast HISTORY: lower abdominal pain, ? pyelo, r/o hydro COMPARISON: None. TECHNIQUE: Without contrast.. Contrast dose: 0 Radiation dose: Total exam DLP = 769.17 mGy-cm. This CT exam was performed using one or more of the following dose reduction techniques: Automated exposure control, adjustment of the mA and/or kV according to patient size, and/or use of iterative reconstruction technique. FINDINGS: LOWER THORAX: Unremarkable. LIVER: Normal size, contour and attenuation. No mass. There is a punctate calcification in the medial segment left hepatic lobe consistent with calcified granuloma. No biliary dilatation GALLBLADDER AND BILE DUCTS: Unremarkable. PANCREAS: Unremarkable. No gross lesion or ductal dilatation. SPLEEN: Unremarkable. ADRENALS: Unremarkable. No mass. KIDNEYS AND URETERS: Right lower pole cortical cyst, 2.6 cm diameter. Unchanged. Four Hounsfield units attenuation. Previously identified right hydronephrosis has resolved. No renal calculus. Left hydronephrosis decreased in extent compared to prior examination. No left renal mass. No renal calculus. Left hydroureter. No ureteral calculus.. VASCULATURE: Unremarkable. No aortic aneurysm. BOWEL: Diverticulosis of distal descending/sigmoid colon. No evidence of diverticulitis. No bowel obstruction. No other abnormal bowel loops are appreciated. APPENDIX: Unremarkable. Normal appendix. PERITONEUM: Very small right Bochdalek's hernia containing only fat. No ascites. LYMPH NODES: Unremarkable. No enlarged lymph nodes. BLADDER: Mild bladder wall thickening. Two small bladder diverticula near bladder dome. REPRODUCTIVE: Normal prostate BONES: Extensive widespread blastic metastasis of all visualized osseous structures. OTHER FINDINGS: None. IMPRESSION: Left hydronephrosis and hydroureter. No obstructing calculus. Decreased hydronephrosis compared to prior examination. Resolved right hydronephrosis. Bladder wall thickening with 2 small diverticula at bladder dome. Widespread blastic osseous metastasis. The preliminary findings for this examination were reported by [facility] at 11:35 p.m. on 11/10/2017. There is concurrence of this report with the preliminary findings.
[2017-11-11] MEDS: ENZALUTAMIDE 40 MG PO SCH (10:55)
[2017-11-11] MEDS: LORATADINE PO SCH (11:09)
[2017-11-11] MEDS: PSEUDOEPHEDRINE PO SCH (11:09)
[2017-11-11] MEDS: Budesonide/Formoterol Fumarate [Symbicort 160-4.5 Mcg Inhaler] (HOME MED) IH SCH ×2 (11:10→18:46)
--- NOTE | 2017-11-11 12:57 | CARD ---
APPROVED REPORT Date of service: 11/10/2017 EKG Measurement Heart [id number] <Conclusion> Normal sinus rhythm Left axis deviation Abnormal ECG
--- NOTE | 2017-11-11 13:39 | RAD ---
Date of service: 11/10/2017 PROCEDURE: CHEST RADIOGRAPH, 1 VIEW HISTORY: weakness COMPARISON: 08/13/2017 FINDINGS: LUNGS: Vaguely nodular opacity overlying the inferior scapular tip bilaterally. Not clearly evident on examination of 07/28/2017. Likely related to osseous metastases demonstrated previously on CT angiogram chest 01/20/2017. PLEURA: No pneumothorax or pleural fluid seen. CARDIOVASCULAR: Normal. OSSEOUS STRUCTURES: No significant abnormalities. VISUALIZED UPPER ABDOMEN: Normal. OTHER FINDINGS: None. IMPRESSION: Vague nodular opacity overlying the inferior tip of the scapula bilaterally. Likely related to known blastic osseous metastasis. Cannot rule out pulmonary metastasis. If clinically warranted consider further evaluation with computed tomography of the chest.
[2017-11-11] MEDS ORDERED: Ipratropium 0.02% Inhal Soln (0.5 mg/2.5 ml) UD IH PRN (14:22)
[2017-11-11] MEDS ORDERED: Albuterol-Ipratrop 3 mg / 0.5 (3 ml) UD IH STA (16:32)
[2017-11-11] MEDS: Arformoterol 15 mcg/2 ml Inh Sol IH SCH (19:44)
[2017-11-11] MEDS: Albuterol-Ipratrop 3 mg / 0.5 (3 ml) UD IH SCH (19:45)
[2017-11-11] MEDS: Budesonide 0.5 mg/2 ml Inhal Susp UD IH SCH (19:45)
--- NOTE | 2017-11-11 23:31 | CON ---
DATE: 11/11/2017 LOCATION: The patient is seen in 571, bed 1. CHIEF COMPLAINT: Weakness x1 day duration. HISTORY OF PRESENT ILLNESS: This is an 82-year-old male known to me from previous admissions with history of chronic obstructive lung disease, hypertension, diabetes, hyperlipidemia, anemia, prostate cancer, has had chemotherapy for prostate cancer, who also has had cataract, glaucoma, anemia, who has had right chest tube for pneumothorax, cystoscopy in the past and tonsillectomy in the past, with no known allergies, admitted. On this admission in the emergency room, the patient was seen by Dr. Ronald Lantigua. The patient with severe dysuria and pain upon urination and weakness with symptoms. The patient does have self-catheterization. REVIEW OF SYSTEMS: A 12-point review pf systems is performed. There has been no fevers and no chills reported. No abdominal pain, diarrhea or constipation or bright red blood per rectum. No melena. No dysuria and at this time, he did have dysuria on admission. No headaches and blurred vision. PAST MEDICAL HISTORY: Significant for COPD, prostate cancer, status post chemotherapy. Hypertension, diabetes, cataract, glaucoma, anemia, pneumothorax, hyperlipidemia and diabetes mellitus. PAST SURGICAL HISTORY: Significant for cystoscopy and right chest tube placement and tonsillectomy. ALLERGIES: THE PATIENT HAS NO KNOWN ALLERGIES. MEDICATIONS AT HOME: Reviewed, include Claritin, nasal Flonase, catheters and Pepcid. PHYSICAL EXAMINATION: GENERAL: He is in bed, no acute distress, comfortable. VITAL SIGNS: Temperature of 97, blood pressure is 140/70, respiratory rate of 18, heart rate of 76. HEENT: Examination of HEENT is unremarkable. NECK: Supple. LUNGS: Have decreased breath sounds. HEART: Normal S1, S2. ABDOMEN: Soft, nontender. No rebound or guarding. No masses. LABORATORY DATA: Laboratory examination reveals the patient had a CAT scan of the abdomen and pelvis, which shows left hydronephrosis and hydroureter. There is widespread blastic osseous metastases and blood cultures are pending. Urine cultures are pending. ASSESSMENT AND PLAN: An 82-year-old with urinary tract infection with urinalysis that has 25-30 wbc's, many bacteria, large leukocyte esterase, positive nitrites and chemistries are noted to be unremarkable except for high alk phos in a patient with prostate cancer with metastases, bone metastases, who now has urinary tract infection with left hydronephrosis and hydroureter. We will treat the patient with meropenem, pending urine culture and blood culture. Overall prognosis is quite poor for this patient and we will follow with you. Juan Maldonado MD
[2017-11-12] MEDS: Albuterol-Ipratrop 3 mg / 0.5 (3 ml) UD IH SCH ×4 (01:34→19:32)
[2017-11-12] MEDS: Latanoprost 2.5 ml Opht Soln OU SCH ×2 (01:40→21:37)
[2017-11-12] MEDS: Sodium Chloride 0.9% 1,000 ML IV SCH (03:30)
--- NOTE | 2017-11-12 05:08 | CON ---
DATE: 11/11/2017 REFERRING PHYSICIAN: Megan Sheth MD REASON FOR CONSULTATION: Chronic lung disease, sleep apnea syndrome, cardiomyopathy. HISTORY OF PRESENT ILLNESS: This is an 82-year-old gentleman with known cardiomyopathy, chronic obstructive lung disease, sleep apnea syndrome, metastatic prostate cancer, comes into ER, has a known history of bladder outlet obstruction, usually does self catheterization at home, had flank pain with burning of the urine. No hemoptysis. No hematemesis. No hematuria. No diarrhea reported. PAST MEDICAL HISTORY: Metastatic prostate cancer, chronic obstructive lung disease, hypertension, history of vertigo, diabetes, hypothyroid, anemia, degenerative joint disease, prostate cancer, anxiety disorder. FAMILY HISTORY: No significant cardiopulmonary disease reported. SOCIAL HISTORY: Former smoker. Denied any alcohol use. ALLERGIES: NONE KNOWN. MEDICATIONS: He is on Claritin 10 mg daily; Colace 100 mg daily; albuterol/Atrovent nebulizer every 6 hours; Ecotrin 81 mg daily; ferrous sulfate 324 mg Monday, Monday; Flonase one spray to each nostril twice a day; also loratadine with pseudoephedrine 1 tablet daily; meropenem 1 g IV every 8 hours; methenamine 1 g twice a day; Pepcid 20 mg daily; Pyridium 100 mg every 8 hours. p.r.n.; IV fluid normal saline 100 mL per hour; Synthroid 120 mcg daily; Ultram 50 mg three times a day. REVIEW OF SYSTEMS: No headache. No rhinitis. No much cough. No sputum production. Compliant with the CPAP. No chest pain. No abdominal pain. Does have a back pain also, dysuria. Has bladder outlet obstruction. No leg swelling. PHYSICAL EXAMINATION: GENERAL: Sitting side of the bed. VITAL SIGNS: Temperature is 98, heart rate 69, respiratory rate is 18, blood pressure 134/68, pulse ox 99% nasal cannula. HEENT: Moist mucous membrane. Crowded airway. Mallampati score is 4. NECK: Supple. No JVD. LUNGS: Have fair airflow with rhonchi. HEART: S1 and S2. ABDOMEN: Soft, nontender, no organomegaly. Does have flank tenderness. EXTREMITIES: There is no edema. NEUROLOGIC: Awake and alert. Follows simple commands. LABORATORY DATA: Shows hemoglobin 12.6, hematocrit 38.8, WBC 5.6, platelet is 167. VBG show pH 7.38, pCO2 is 40, O2 is 22 that is on nasal cannula. Sodium 137, potassium 4.1, chloride 104, bicarbonate 23, BUN 21, creatinine 0.9, calcium 9.8, AST 26, ALT 12, alk phos is 454. Albumin 4.4. Urinalysis shows wbc's 25 to 30. Chest x-ray done on admission shows vague nodular opacity overlying the inferior tip of the scapula bilaterally, likely related to known blastic osseous metastases, cannot rule out pulmonary metastasis. Also had a CT of the pelvis and abdomen done, which shows left hydronephrosis and hydroureter, no obstructing calculus, decreased hydronephrosis compared to prior examination; resolved right hydronephrosis; bladder wall thickening with 2 small diverticula of bladder dome blastic osseous metastatic disease. IMPRESSION AND PLAN: Probably have urinary tract infection, rule out bacteremia, known bladder outlet obstruction with metastatic prostate cancer, renal insufficiency, chronic obstructive lung disease, cardiomyopathy, anemia, hypertension, seasonal allergies. I agree with Dr. Sheth with the present management, on broad-spectrum antibiotics covering healthcare-associated organism. Continue CPAP while sleeping, inhaled bronchodilator. Gastric prophylaxis, deep vein thrombosis prophylaxis. ignacio you and we will follow with you. Christy Bartlett MD
[2017-11-12] MEDS: Levothyroxine 112 MCG TAB PO SCH (06:10)
[2017-11-12] MEDS: Arformoterol 15 mcg/2 ml Inh Sol IH SCH ×2 (07:25→19:32)
[2017-11-12] MEDS: Budesonide 0.5 mg/2 ml Inhal Susp UD IH SCH ×2 (07:26→19:33)
[2017-11-12 09:01] LABS: IRON 50 ug/dL (45-180)
[2017-11-12 09:11] LABS: % IRON SATURATION 20 % (20-55); TOTAL IRON BINDING CAPACITY 244 ug/dL (261-462)
[2017-11-12] MEDS: Budesonide/Formoterol Fumarate [Symbicort 160-4.5 Mcg Inhaler] (HOME MED) IH SCH ×2 (09:36→17:27)
[2017-11-12] MEDS: ENZALUTAMIDE 40 MG PO SCH (09:38)
[2017-11-12] MEDS: METHENAMINE HIPPURATE 1 GM PO SCH ×2 (09:39→17:28)
[2017-11-12] MEDS: PSEUDOEPHEDRINE PO SCH (09:39)
[2017-11-12] MEDS: LORATADINE PO SCH (09:39)
--- NOTE | 2017-11-12 10:10 | HP ---
The patient is an 82-year-old male. The patient was seen and examined at the bedside on 11/11/2017. CHIEF COMPLAINT: Painful urination. HISTORY OF PRESENT ILLNESS: Mr. Sam Pantoja is my private patient, 82-year-old male with past medical history of COPD, prostate cancer, doing self catheterization, came to the Emergency Department with severe dysuria. Reports pain with urination. Denies nausea, vomiting or diarrhea. Denies leg pain. No headache, no dizziness. No chest pain. No palpitation. States that when he catheterized himself for the urine, it is painful but normal amount comes out. He also states that urine is red, but it is from medication that was started on me as per patient. Denies fever and chills. PAST MEDICAL HISTORY: COPD; hypertension; prostate cancer with metastasis;; history of cataract surgery; glaucoma; diabetes mellitus type 2; anemia, for prostate, takes Zytiga; arthritis; UTI; anxiety. FAMILY HISTORY: Father and mother noncontributory. HABITS: Former smoker. No smoking, no drugs, no ethanol now. ALLERGIES: PATIENT IS NOT ALLERGIC WITH ANY MEDICATIONS. HOME MEDICATIONS: Symbicort, Flonase, levothyroxine, Ecotrin, Colace. REVIEW OF SYSTEMS: Patient was seen and examined on the bedside in his room. Looking comfortable. No nausea or vomiting. No headache. No dizziness. No chest pain. No palpitation. No fever. No chills. PHYSICAL EXAMINATION: VITAL SIGNS: Temperature 98.3, pulse 80, respiratory rate 18, blood pressure 140/95. HEENT: Head: Normocephalic, atraumatic. Eyes: PERRLA. Extraocular muscles intact. Conjunctivae clear. Nose patent. NECK: Supple. No carotid bruits. No JVD or thyromegaly. CHEST: Bilaterally symmetrical. HEART: S1 and S2 positive. LUNGS: Clear to auscultation. ABDOMEN: Soft. Bowel sounds present. No organomegaly. EXTREMITIES: No edema. No cyanosis. NEUROLOGIC: Patient is awake and alert. Moving all four extremities. No focal deficits. LABORATORY DATA: White blood cell is 5.6, hemoglobin 12.6, hematocrit 38.8, platelet 167. Sodium 137, potassium 4.1, BUN 21, creatinine 0.9. Glucose 101. ASSESSMENT AND PLAN: Mr. Sam Pantoja is an 82-year-old male with anemia, has severe urinary tract infection, abdominal pain, prostate cancer with metastasis to the lungs and the bones, history of self catheterization, chronic obstructive pulmonary disease, history of vertigo, history of cataracts and glaucoma, diabetes mellitus type 2, hypothyroidism, had multiple admissions, obstructive sleep apnea syndrome, using bilevel positive airway pressure. Infectious Disease consult called with Dr. Maldonado. CAT scan of the abdomen and pelvis done. Status post chemotherapy, history of pneumothorax, hypercholesterolemia. GI admitted the patient. Intravenous antibiotics started. Repeat labs. Out of bed. Physical therapy. We will follow up. Megan Sheth MD MTDD
[2017-11-12] MEDS: Meropenem IV 1 gm in NS 50 ML IVPB SCH ×3 (14:37→21:38)
[2017-11-12 17:37] LABS: FOLATE 9.3 ng/mL
--- NOTE | 2017-11-12 18:09 | PN ---
DATE: 11/12/2017 SUBJECTIVE: The patient is seen in bed in no acute distress, nontoxic. PHYSICAL EXAMINATION: VITAL SIGNS: Temperature of 98, blood pressure is 136/70, respiratory rate of 20, heart rate of 78. HEENT: Unremarkable. NECK: Supple. LUNGS: Have decreased breath sounds. HEART: Normal S1, S2. ABDOMEN: Soft. LABORATORY DATA: Reveals a white count of 5.6, hemoglobin of 12, platelets of 167. BUN of 21, creatinine of 0.9, alk phos is 454. Urinalysis is noted with 25-30 wbcs. Microbiology reveals the blood cultures are no growth. Urine cultures are negative. The patient had a chest x-ray, which is noted. ASSESSMENT AND PLAN: This is an 82-year-old male was seen earlier in 571 with urinary tract infection with many bacteria, large leukocyte esterase and a patient with prostate cancer with bone metastases who has urinary tract infection, left hydronephrosis and hydroureter. Currently on meropenem with negative blood cultures, negative urine cultures. Dr. Sheth's history and physical examination is appreciated. The patient has a history of self-catheterization. Admitted because of severe dysuria. We will check on the final culture results. Juan Maldonado MD
--- NOTE | 2017-11-12 18:28 | CP.PCM.CON ---
Past Patient History - Infectious Disease Hx of Infectious Diseases: None - Tetanus Immunizations Tetanus Immunization: Unknown - Past Social History Smoking Status: Former Smoker - CARDIAC Hx Cardiac Disorders: Yes Hx Hypertension: Yes - PULMONARY Hx Chronic Obstructive Pulmonary Disease (COPD): Yes - NEUROLOGICAL Hx Neurological Disorder: Yes Hx Dizziness: Yes (VERTIGO) - HEENT Hx HEENT Problems: Yes (eyeglasses) Hx Cataracts: Yes Hx Glaucoma: Yes - RENAL Hx Chronic Kidney Disease: No - ENDOCRINE/METABOLIC Hx Diabetes Mellitus Type 2: Yes Hx Hypothyroidism: Yes - HEMATOLOGICAL/ONCOLOGICAL Hx Blood Disorders: Yes Hx Anemia: Yes Hx Cancer: Yes (PROSTATE-takes Zytiga) - INTEGUMENTARY Hx Dermatological Problems: No - MUSCULOSKELETAL/RHEUMATOLOGICAL Hx Arthritis: Yes - GASTROINTESTINAL Hx Gastrointestinal Disorders: No - GENITOURINARY/GYNECOLOGICAL Hx Genitourinary Disorders: No (UTI) Hx Reproductive Disorders: Yes (PROSTATE CA) - PSYCHIATRIC Hx Psychophysiologic Disorder: Yes Hx Anxiety: Yes Hx Substance Use: No - SURGICAL HISTORY Hx Surgeries: Yes (CYSTOSCOPY, TONSILLECTOMY) - ANESTHESIA Hx Anesthesia: Yes Hx Anesthesia Reactions: No Hx Malignant Hyperthermia: No Meds Allergies/Adverse Reactions: Allergies Allergy/AdvReac Type Severity Reaction Status Date / Time No Known Allergies Allergy Verified 10/18/17 09:25 - Medications Medications: Current Medications Albuterol/Ipratropium (Duoneb 3 Mg/0.5 Mg (3 Ml) Ud) 3 ml IH [id number] [facility] Last Admin: 11/12/17 13:41 Dose: 3 ml Arformoterol Tartrate (Brovana) 15 mcg IH [id number] [facility] Last Admin: 11/12/17 07:25 Dose: 15 mcg Aspirin (Ecotrin) 81 mg PO DAILY [facility] Last Admin: 11/12/17 09:38 Dose: 81 mg Budesonide (Pulmicort Respules) 0.5 mg IH [id number] [facility] Last Admin: 11/12/17 07:26 Dose: 0.5 mg Docusate Sodium (Colace) 100 mg PO DAILY [facility] Last Admin: 11/12/17 09:36 Dose: 100 mg Famotidine (Pepcid) 20 mg PO HS [facility] Last Admin: 11/11/17 22:07 Dose: 20 mg Ferrous Sulfate (Feosol) 324 mg PO WM [facility] Last Admin: 11/12/17 17:27 Dose: 324 mg Fluticasone Propionate (Flonase) 1 actuation NS BID PRN PRN Reason: Sinus symptoms Home Med (Home Med) 4 unit PO DAILY [facility] Last Admin: 11/12/17 09:38 Dose: 4 unit Meropenem (Merrem Iv 1 Gm Premix) 50 mls @ 100 mls/hr IVPB Q8 KRYS PRN Reason: Protocol Stop: 11/20/17 07:46 Last Admin: 11/12/17 14:37 Dose: 100 mls/hr Latanoprost (Xalatan Opht) 0 ml OU HS [facility] Last Admin: 11/12/17 01:40 Dose: Not Given Levothyroxine Sodium (Synthroid) 112 mcg PO 0600 [facility] Last Admin: 11/12/17 06:10 Dose: 112 mcg Loratadine (Claritin) 10 mg PO DAILY [facility] Last Admin: 11/12/17 09:36 Dose: 10 mg Montelukast Sodium (Singulair) 10 mg PO HS [facility] Last Admin: 11/11/17 22:08 Dose: 10 mg Budesonide/Formoterol Fumarate [Symbicort 160-4.5 Mcg Inhaler] (Home Med) 2 puff IH BID [facility] Last Admin: 11/12/17 17:27 Dose: Not Given Non-Formulary Medication (Catheter [Catheter]) 1 each MC DAILY PRN PRN Reason: Other Loratadine/Pseudoephedrine [ Claritin-D 24 Hour Tablet] (Home Med) 1 each PO DAILY [facility] Last Admin: 11/12/17 09:39 Dose: Not Given Methenamine Hippurate [Hiprex] 1 Gm (Home Med) 1 gm PO BID [facility] Last Admin: 11/12/17 17:28 Dose: Not Given Phenazopyridine HCl (Pyridium) 100 mg PO Q8 PRN PRN Reason: urinary burning Last Admin: 11/12/17 09:37 Dose: 100 mg Tramadol HCl (Ultram) 50 mg PO TID PRN PRN Reason: Pain, Mild (1-3) Last Admin: 11/12/17 14:40 Dose: 50 mg Results - Vital Signs Recent Vital Signs: Last Vital Signs Temp 98 F 11/12/17 15:03 Pulse 60 11/12/17 15:03 Resp 18 11/12/17 15:03 BP 128/68 11/12/17 15:03 Pulse Ox 98 11/12/17 15:03 - Labs Result Diagrams: 11/10/17 21:05 11/10/17 21:05 Labs: Laboratory Results - last 24 hr 11/12/17 11/12/17 11/12/17 07:30 07:30 07:30 Hemoglobin A1c 6.0 Iron 50 TIBC 244 L % Saturation 20 Triglycerides 68 Cholesterol 194 LDL Cholesterol Direct 90 HDL Cholesterol 54 Vitamin B12 373 Folate 9.3 Assessment & Plan - Assessment and Plan (Free Text) Assessment: IMP; DYSURIA UTI HX OF PROSTATE CA PREVIOUS RT CHRONIC RETENTION, ON INTERMITTENT SELF-CATHETERIZATION FULL NOTE TBD YS - Date & Time Date: 11/12/17 Time: 16:15
--- NOTE | 2017-11-12 21:10 | PN ---
DATE: 11/12/2017 PULMONARY PROGRESS NOTE REFERRING PHYSICIAN: Megan Sheth MD. SUBJECTIVE: He is lying in the bed, head at 45 degrees. Night was unremarkable. Tolerating CPAP well. No chest pain. No nausea, no vomiting. Has a bladder outlet obstruction with dysuria. No leg pain or leg swelling. PHYSICAL EXAMINATION: GENERAL: In no acute distress. VITAL SIGNS: Temperature is 98, heart rate 60, respiratory rate is 18, blood pressure 128/68, pulse ox 98% on room air. HEENT: Moist mucous membranes. Crowded airway. Mallampati score is 4. NECK: Supple. No JVD. LUNGS: Have a fair airflow with rhonchi. HEART: S1, S2. ABDOMEN: Soft, nontender. No organomegaly. EXTREMITIES: No edema. NEUROLOGIC: Awake, alert, and follows simple command. MEDICATIONS: He is on Brovana inhaled twice a day, Symbicort 2 puffs twice a day, Claritin 10 mg daily, Colace 100 mg daily, DuoNeb every 6 hours, Ecotrin 81 mg daily, ferrous sulfate 324 mg with meals, Flonase one spray in each nostril twice a day, loratadine with pseudoephedrine 1 tablet daily, meropenem 1 g every 8 hours, methenamine hippurate 1 g twice a day, Pepcid 30 mg daily, Pulmicort inhaled twice a day, Pyridium 100 mg every 8 hours p.r.n., Singulair 10 mg daily, Synthroid 112 mcg daily, and Ultram 50 mg three times a day p.r.n. LABORATORY DATA: Shows hemoglobin A1c of 6. Iron is 50. Cholesterol 194. Microbiology: Blood culture and urine culture, there is no growth. IMPRESSION AND PLAN: Urinary tract infection, bladder outlet obstruction with metastatic prostate cancer, chronic obstructive lung disease, cardiomyopathy, anemia, hypertension, seasonal allergies, sleep apnea syndrome. Pulmonary point of view, doing okay. Continue CPAP while sleeping. Keep head at 45 degrees. Antibiotics as per Infectious Disease. Inhaled bronchodilator, p.r.n. self cath, fall precaution. Thank you and we will follow with you. Christy Bartlett MD
--- NOTE | 2017-11-13 00:04 | PN ---
DATE: 11/12/2017 SUBJECTIVE: Patient is an 82-year-old male. Patient was seen and examined at bedside on 11/12/2017. Patient was having dinner. Looking comfortable. Cough is better. Shortness of breath is better. No abdominal pain. Tolerating CPAP very well. No fever, no chills. No chest pain. No palpitation. PHYSICAL EXAMINATION: VITAL SIGNS: Temperature 98.6, heart rate 60, respiratory rate 18, blood pressure 128/68, pulse oximetry 98% on room air. HEENT: Head: Normocephalic, atraumatic. Eyes: PERRLA. Extraocular muscles intact. Conjunctivae clear. Nose: Patent. Mucous membrane moist. NECK: Supple. No carotid bruit. No JVD or thyromegaly. CHEST: Bilaterally symmetrical. HEART: S1 and S2 positive. LUNGS: Clear to auscultation. ABDOMEN: Soft. Bowel sounds present. No organomegaly. EXTREMITIES: No edema. No cyanosis. NEUROLOGIC: The patient is awake and alert. Moving all 4 extremities. No focal deficits. MEDICATIONS: Brovana, Symbicort, Claritin, Colace, DuoNeb, Ecotrin, iron, Flonase, loratadine, pseudoephedrine, meropenem, Pepcid, Pulmicort, Pyridium, Singulair, Synthroid, tramadol. LABORATORY DATA: Hemoglobin A1c 6. Iron is 50. Cholesterol is 194. Blood cultures and urine cultures, no growth. We do not have recent labs today, but I reviewed old labs. ASSESSMENT AND PLAN: Mr. Sam Pantoja is an 82-year-old male with urinary tract infection, bladder outlet obstruction, prostate cancer with metastasis, history of self catheterization, chronic obstructive pulmonary disease, obstructive sleep apnea syndrome, cardiomyopathy, hypertension, anemia, seasonal allergies. Getting antibiotics. Continue CPAP while sleeping. The patient is compliant with the CPAP. Antibiotics as per Infectious Disease. Inhaled bronchodilators. Gastrointestinal and deep vein thrombosis prophylaxes. Urologist is on the case. Reviewed all progress notes. Repeat labs. We will follow up. Megan Sheth MD [facility] # [id number]
[2017-11-13] MEDS: Albuterol-Ipratrop 3 mg / 0.5 (3 ml) UD IH SCH ×4 (01:43→19:56)
[2017-11-13] MEDS: Meropenem IV 1 gm in NS 50 ML IVPB SCH ×3 (05:27→21:41)
[2017-11-13] MEDS: Levothyroxine 112 MCG TAB PO SCH (05:28)
[2017-11-13] MEDS: Budesonide 0.5 mg/2 ml Inhal Susp UD IH SCH ×2 (07:28→19:56)
[2017-11-13] MEDS: Arformoterol 15 mcg/2 ml Inh Sol IH SCH ×2 (07:28→19:56)
[2017-11-13] MEDS: ENZALUTAMIDE 40 MG PO SCH (10:43)
[2017-11-13] MEDS: Budesonide/Formoterol Fumarate [Symbicort 160-4.5 Mcg Inhaler] (HOME MED) IH SCH (10:45)
[2017-11-13] MEDS: PSEUDOEPHEDRINE PO SCH (10:46)
[2017-11-13] MEDS: LORATADINE PO SCH (10:46)
[2017-11-13] MEDS: METHENAMINE HIPPURATE 1 GM PO SCH (10:46)
[2017-11-13 15:45] VITALS: TEMP 98.2
--- NOTE | 2017-11-13 21:24 | CP.PCM.PN ---
Subjective - Date & Time of Evaluation Date of Evaluation: 11/13/17 Time of Evaluation: 13:40 - Subjective Subjective: No fevers, not in distress, dysuria is improving, no nausea. Objective - Vital Signs/Intake and Output Vital Signs (last 24 hours): Temp Pulse Resp BP Pulse Ox 98.2 F 62 20 152/72 H 98 11/13/17 14:00 11/13/17 14:00 11/13/17 14:00 11/13/17 14:00 11/13/17 14:00 - Medications Medications: Current Medications Albuterol/Ipratropium (Duoneb 3 Mg/0.5 Mg (3 Ml) Ud) 3 ml IH [id number] [facility] Last Admin: 11/13/17 19:56 Dose: 3 ml Arformoterol Tartrate (Brovana) 15 mcg IH [id number] [facility] Last Admin: 11/13/17 19:56 Dose: 15 mcg Aspirin (Ecotrin) 81 mg PO DAILY [facility] Last Admin: 11/13/17 10:45 Dose: 81 mg Budesonide (Pulmicort Respules) 0.5 mg IH [id number] [facility] Last Admin: 11/13/17 19:56 Dose: 0.5 mg Docusate Sodium (Colace) 100 mg PO DAILY [facility] Last Admin: 11/13/17 10:44 Dose: 100 mg Famotidine (Pepcid) 20 mg PO HS [facility] Last Admin: 11/12/17 21:40 Dose: 20 mg Ferrous Sulfate (Feosol) 324 mg PO WM [facility] Last Admin: 11/13/17 12:28 Dose: Not Given Fluticasone Propionate (Flonase) 1 actuation NS BID PRN PRN Reason: Sinus symptoms Last Admin: 11/13/17 16:45 Dose: 1 spray Home Med (Home Med) 4 unit PO DAILY [facility] Last Admin: 11/13/17 10:43 Dose: 4 unit Meropenem (Merrem Iv 1 Gm Premix) 50 mls @ 100 mls/hr IVPB Q8 KRYS PRN Reason: Protocol Stop: 11/20/17 07:46 Last Admin: 11/13/17 15:01 Dose: 100 mls/hr Latanoprost (Xalatan Opht) 0 ml OU HS [facility] Last Admin: 11/12/17 21:37 Dose: 2.5 ml Levothyroxine Sodium (Synthroid) 112 mcg PO 0600 [facility] Last Admin: 11/13/17 05:28 Dose: 112 mcg Loratadine (Claritin) 10 mg PO DAILY [facility] Last Admin: 11/13/17 10:44 Dose: 10 mg Montelukast Sodium (Singulair) 10 mg PO HS [facility] Last Admin: 11/12/17 21:40 Dose: 10 mg Budesonide/Formoterol Fumarate [Symbicort 160-4.5 Mcg Inhaler] (Home Med) 2 puff IH BID [facility] Last Admin: 11/13/17 10:45 Dose: Not Given Non-Formulary Medication (Catheter [Catheter]) 1 each MC DAILY PRN PRN Reason: Other Loratadine/Pseudoephedrine [ Claritin-D 24 Hour Tablet] (Home Med) 1 each PO DAILY [facility] Last Admin: 11/13/17 10:46 Dose: Not Given Methenamine Hippurate [Hiprex] 1 Gm (Home Med) 1 gm PO BID [facility] Last Admin: 11/13/17 10:46 Dose: Not Given Phenazopyridine HCl (Pyridium) 100 mg PO Q8 PRN PRN Reason: urinary burning Last Admin: 11/13/17 10:44 Dose: 100 mg Tramadol HCl (Ultram) 50 mg PO TID PRN PRN Reason: Pain, Mild (1-3) Last Admin: 11/13/17 05:27 Dose: 50 mg - Constitutional Appears: Chronically Ill - Head Exam Head Exam: NORMAL INSPECTION - Respiratory Exam Respiratory Exam: Decreased Breath Sounds - Cardiovascular Exam Cardiovascular Exam: +S1, +S2 - GI/Abdominal Exam GI & Abdominal Exam: Soft. absent: Tenderness Assessment and Plan - Assessment and Plan (Free Text) Plan: Assessment consider UTI with Pseudomonas in patient who does self-catheterization, associated with hydroureter prostate cancer with bone metastases Plan Will continue Merrem day 3 to complete 7-10 days of antibiotics overall prognosis is poor
[2017-11-13] MEDS: Latanoprost 2.5 ml Opht Soln OU SCH (21:49)
[2017-11-14] MEDS: Albuterol-Ipratrop 3 mg / 0.5 (3 ml) UD IH SCH ×2 (01:54→07:15)
--- NOTE | 2017-11-14 02:21 | PN ---
DATE: 11/13/2017 PULMONARY PROGRESS NOTE REFERRING PHYSICIAN: Dr. Sheth SUBJECTIVE: He is sitting at side of the bed. Night was unremarkable. No headache, no rhinitis. Tolerated CPAP well. No nausea, no vomiting. Still having bladder outlet obstruction. No leg swelling. OBJECTIVE: GENERAL: In no acute distress. VITAL SIGNS: Temp is 98, heart rate 62, respiratory rate is 20, blood pressure 152/72, pulse ox 98% on 3 liters nasal cannula. HEENT: Moist mucous membrane. Crowded airway. NECK: Supple. No JVD. LUNGS: Have a few scattered rhonchi. HEART: S1, S2. ABDOMEN: Soft, nontender, no organomegaly. EXTREMITIES: No edema. NEUROLOGIC: Awake, alert, follow simple commands. MEDICATIONS: He is on Brovana inhaled twice a day, also on Claritin 10 mg daily, Colace 100 mg daily, DuoNeb every 6 hours, Ecotrin 81 mg daily, ferrous sulfate 325 mg one daily with meals, Flonase 1 spray to each nostril twice a day, insulin coverage, meropenem 1 g IV every 8 hours. He is on Hiprex 1 g twice a day, Pepcid 20 mg at bedtime, Pulmicort inhaled twice a day, Pyridium 100 mg every 8 hours p.r.n., Singulair 10 mg at bedtime, Synthroid 112 mcg daily, Ultram 50 mg 3 times a day p.r.n. LABORATORY DATA: Reviewed. Microbiology: Blood culture and urine culture, there is no growth. IMPRESSION AND PLAN: Urinary tract infection, bladder outlet obstruction and prostate cancer with metastasis, chronic obstructive lung disease, cardiomyopathy, anemia, hypertension, seasonal allergy, sleep apnea syndrome. The patient being followed by Urology, Infectious Disease. Need few days of IV antibiotics. The patient could be transferred to [facility]. Continue continuous positive airway pressure while sleeping, bronchodilator. Fall precaution. Continue strict cath every shift. Thank you and we will follow with you. Christy Bartlett MD
--- NOTE | 2017-11-14 05:23 | PN ---
DATE: 11/13/2017 SUBJECTIVE: The patient was seen and examined on the bedside on 11/13/2017. Progress notes are for 11/13/2017. Getting breathing treatment. No fever. No chills. No acute distress. Dysuria is improving. No hematuria or hematochezia. No swelling of the legs. No fever. No chills. PHYSICAL EXAMINATION: VITAL SIGNS: Temperature 98.2, pulse 52, respiratory rate 20, blood pressure 150/70, pulse oximetry 98. HEENT: Head normocephalic, atraumatic. Eyes PERRLA. Extraocular muscles intact. Conjunctivae clear. Nose patent. NECK: Supple. No carotid bruit. No JVD or thyromegaly. CHEST: Bilaterally symmetrical. HEART: S1 and S2 positive. LUNGS: Clear to auscultation. ABDOMEN: Soft. Bowel sounds positive. No organomegaly. EXTREMITIES: No edema. No cyanosis. NEUROLOGICAL: The patient is awake and alert. Follows simple commands. MEDICATIONS: DuoNeb, Brovana, Ecotrin, Pulmicort, Colace, Pepcid, iron, fluticasone, meropenem, Xarelto, levothyroxine, Symbicort non-formulary, loratadine, Hiprex, Primidone, tramadol. ASSESSMENT AND PLAN: Mr. Sam Pantoja, 82-year-old male has urinary tract infection with Pseudomonas, who has self catheterization because of urinary retention associated with hydroureter, prostate with metastasis. Continue Merrem, on day #3 to complete the 7-10 days of antibiotics. Overall, prognosis is n chronic obstructive pulmonary disease. Seen by Dr. Bartlett, Dr. Mello Goldstein. We will follow up with the labs. Megan Sheth MD [facility]
[2017-11-14] MEDS: Levothyroxine 112 MCG TAB PO SCH (06:07)
[2017-11-14] MEDS: Meropenem IV 1 gm in NS 50 ML IVPB SCH (06:17)
[2017-11-14] MEDS: Arformoterol 15 mcg/2 ml Inh Sol IH SCH (07:15)
[2017-11-14] MEDS: Budesonide 0.5 mg/2 ml Inhal Susp UD IH SCH (07:15)
[2017-11-14 10:54] VITALS: BP 131/75; PULSE 57; RESP 16; O2SAT 100
--- NOTE | 2017-11-14 17:15 | PN ---
DATE: 11/14/2017 PULMONARY PROGRESS NOTE REFERRING PHYSICIAN: Megan Sheth MD. SUBJECTIVE: He is sitting at side of the bed. Night was unremarkable. Still self-cathing himself. No shortness of breath, tolerating CPAP well. No cough. No sputum production. No nausea. No vomiting. No leg pain or leg swelling. PHYSICAL EXAMINATION: GENERAL: In no acute distress. VITAL SIGNS: Temperature is 98, heart rate 57, respiratory rate is 16, blood pressure 131/75, pulse ox 100% on 3 liters nasal cannula. HEENT: Moist mucous membranes. Crowded airway. NECK: Supple. No JVD. LUNGS: Have a fair airflow with rhonchi. HEART: S1, S2. ABDOMEN: Soft, nontender, no organomegaly. EXTREMITIES: No edema. NEUROLOGIC: Awake, alert, follows simple commands. MEDICATIONS: He is on Brovana inhaled twice a day, Claritin 10 mg daily, Colace 100 mg daily, DuoNeb every 6 hours, Ecotrin 81 mg daily, ferrous sulfate 324 mg one daily with meals, meropenem 1 g IV every 8 hours, Pepcid 20 mg at bedtime, Pulmicort inhaled twice a day, Pyridium 100 mg every 8 hours p.r.n., Singulair 10 mg daily, Synthroid 112 mcg daily, Ultram 50 mg every 8 hours p.r.n. Also, has eye drops. LABORATORY DATA: Microbiology: Blood culture and urine culture, there is no growth. IMPRESSION AND PLAN: Urinary tract infection, bladder outlet obstruction, has prostate cancer with metastasis to the bone, chronic obstructive lung disease, cardiomyopathy, anemia, hypertension, seasonal allergy, sleep apnea syndrome. Spoke to nursing staff. Being transferred to [facility] to continue antibiotics for multi-drug resistant organism. Continue CPAP while sleeping, bronchodilator. Gastric prophylaxis. Fall precaution. Thank you and we will follow with you. Christy Bartlett MD
--- NOTE | 2017-11-14 17:24 | CP.PCM.PN ---
Subjective - Date & Time of Evaluation Date of Evaluation: 11/14/17 Time of Evaluation: 11:25 - Subjective Subjective: Dysuria is a little less, no fevers, not in distress. Objective - Vital Signs/Intake and Output Vital Signs (last 24 hours): Temp Pulse Resp BP Pulse Ox 98.2 F 57 L 16 131/75 100 11/14/17 06:00 11/14/17 06:00 11/14/17 06:00 11/14/17 06:00 11/14/17 06:00 Intake and Output: 11/14/17 11/14/17 06:59 18:59 Intake Total 780 Balance 780 - Labs Labs: 11/10/17 21:05 11/10/17 21:05 - Constitutional Appears: Chronically Ill - Head Exam Head Exam: NORMAL INSPECTION - Neck Exam Neck Exam: absent: Meningismus - Respiratory Exam Respiratory Exam: Decreased Breath Sounds - Cardiovascular Exam Cardiovascular Exam: +S1, +S2 - GI/Abdominal Exam GI & Abdominal Exam: Soft. absent: Tenderness Assessment and Plan - Assessment and Plan (Free Text) Plan: Assessment consider UTI with Pseudomonas in patient who does self-catheterization, associated with hydroureter prostate cancer with bone metastases Plan Will continue Merrem day 4 to complete up to 10 days of antibiotics overall prognosis is poor
--- NOTE | 2017-11-15 00:44 | CON ---
DATE: 11/12/2017 HISTORY OF PRESENT ILLNESS: The patient is an 82-year-old male with urinary tract infection. The patient is in otherwise fair health. The patient presented to the emergency room with dysuria earlier this week. The patient has a history of previous treatment for prostate cancer. He had previous radiation for prostate cancer. The patient now reports that he is on medication for recurrence of his tumor. The patient also reports that he is receiving treatment for his bones as well. He is uncertain if he has bone metastasis. The patient has had urinary incontinence. The patient has been on intermittent self catheterization. He reports no hematuria. No recent fever or rigors. He did have persistent dysuria. The patient wears a diaper. He does not void with good control or with good stream, rather he performs intermittent catheterizations. At times between catheterizations, he leaks urine. No flank pain. No abdominal pain. The patient has good appetite. No nausea or vomiting. Medications were reviewed. Lab data reviewed as well. The patient presented to the emergency room last week. Urine culture had been obtained. The culture subsequently returned as a resistant strain as there was strain of Pseudomonas, which was resistant to oral antibiotics. The patient was treated with Hiprex. However, the patient had persistent dysuria. He presented to the emergency room. He was admitted for evaluation and therapy. The patient is currently receiving parenteral antibiotics. He reports that he is improving regarding his dysuria. PHYSICAL EXAMINATION: GENERAL: The patient is a well-developed, well nourished elderly male. The patient is awake and alert. The patient is oriented. ABDOMEN: Soft, nontender, nondistended. No mass, organomegaly. GENITALIA: Without inflammation. Scrotal contents without inflammation. RECTAL: The patient did now allow rectal examination. IMPRESSION: An 82-year-old male with history of radiation therapy for prostate carcinoma. Now, the patient is currently receiving antibiotic therapy for urinary tract infection. RECOMMENDATION AND PLAN: Monitor serum PSA. We will monitor urine output. Continue intermittent self catheterization. The patient feels comfortable with performing this maneuver. Monitor urine culture. Further therapy to follow according to the patient's clinical course as well as results of above. Thank you for recommending the patient for the urology consultation. [place] MD [place] cc: Megan Sheth MD [facility] # [id number]
== END 2017-11-14 15:14 | DRG 690 ==
LOC: ED 19:50 → ERH 22:17 → 5RSO 23:46
PROVIDERS: ADMIT Internal Medicine; ATTEND Internal Medicine
PROC: 5A09357 Assistance with Respiratory Ventilation, Less than 24 Consecutive Hours, Continuous Positive Airway Pressure (ICD-10-PCS; principal; 2017-11-11)
DX: N39.0 Urinary tract infection, site not specified (principal); C79.51 Secondary malignant neoplasm of bone; I42.9 Cardiomyopathy, unspecified; C78.00 Secondary malignant neoplasm of unspecified lung; N13.30 Unspecified hydronephrosis; J44.9 Chronic obstructive pulmonary disease, unspecified; I10 Essential (primary) hypertension; E11.9 Type 2 diabetes mellitus without complications; G47.33 Obstructive sleep apnea (adult) (pediatric); N32.0 Bladder-neck obstruction; E03.9 Hypothyroidism, unspecified; E78.00 Pure hypercholesterolemia, unspecified; E78.5 Hyperlipidemia, unspecified; D64.9 Anemia, unspecified; H40.9 Unspecified glaucoma; J30.2 Other seasonal allergic rhinitis; R33.9 Retention of urine, unspecified; Z79.51 Long term (current) use of inhaled steroids; Z85.46 Personal history of malignant neoplasm of prostate; Z92.21 Personal history of antineoplastic chemotherapy; Z87.891 Personal history of nicotine dependence; Z79.82 Long term (current) use of aspirin

== ENCOUNTER 2017-11-14 15:17 | Inpatient (IN) | payer OTHER, MEDICAID ==
[2017-11-14 15:33] VITALS: BMI 34.2
[2017-11-14] MEDS ORDERED: Pneumococcal 23-Valent Vaccine IM ONE (15:45)
[2017-11-14] MEDS ORDERED: Influenza Vaccine 60 mcg/0.5 mL SYR (4YR UP) IM ONE (15:45)
[2017-11-14] MEDS ORDERED: Fluticasone Nasal 50 mcg/Spray NS PRN (16:04)
[2017-11-14] MEDS: Albuterol-Ipratrop 3 mg / 0.5 (3 ml) UD IH SCH (20:05)
[2017-11-14] MEDS: Budesonide 0.5 mg/2 ml Inhal Susp UD IH SCH (20:05)
[2017-11-14] MEDS: Arformoterol 15 mcg/2 ml Inh Sol IH SCH (20:05)
[2017-11-14] MEDS: Latanoprost 2.5 ml Opht Soln OU SCH (22:49)
[2017-11-15] MEDS: Albuterol-Ipratrop 3 mg / 0.5 (3 ml) UD IH SCH ×4 (02:55→20:28)
[2017-11-15] MEDS: Levothyroxine 112 MCG TAB PO SCH (06:07)
[2017-11-15] MEDS: Arformoterol 15 mcg/2 ml Inh Sol IH SCH ×2 (07:01→20:28)
[2017-11-15] MEDS: Budesonide 0.5 mg/2 ml Inhal Susp UD IH SCH ×2 (07:01→20:28)
[2017-11-15] MEDS: ENZALUTAMIDE 40 MG PO SCH (09:18)
[2017-11-15] MEDS: SYMBICORT IH SCH ×2 (14:17→17:17)
[2017-11-15] MEDS: Home Med 1 UNIT PO SCH ×2 (14:17→17:16)
[2017-11-15] MEDS: Latanoprost 2.5 ml Opht Soln OU SCH (21:27)
--- NOTE | 2017-11-15 21:35 | CP.PCM.CON ---
Past Patient History - Infectious Disease Hx of Infectious Diseases: None - Tetanus Immunizations Tetanus Immunization: Unknown - Past Social History Smoking Status: Former Smoker - CARDIAC Hx Cardiac Disorders: Yes Hx Hypertension: Yes - PULMONARY Hx Chronic Obstructive Pulmonary Disease (COPD): Yes - NEUROLOGICAL Hx Neurological Disorder: Yes Hx Dizziness: Yes (VERTIGO) - HEENT Hx HEENT Problems: Yes (eyeglasses) Hx Cataracts: Yes Hx Glaucoma: Yes - RENAL Hx Chronic Kidney Disease: No - ENDOCRINE/METABOLIC Hx Diabetes Mellitus Type 2: Yes Hx Hypothyroidism: Yes - HEMATOLOGICAL/ONCOLOGICAL Hx Blood Disorders: Yes Hx Anemia: Yes Hx Cancer: Yes (PROSTATE-takes Zytiga) - INTEGUMENTARY Hx Dermatological Problems: No - MUSCULOSKELETAL/RHEUMATOLOGICAL Hx Arthritis: Yes - GASTROINTESTINAL Hx Gastrointestinal Disorders: No - GENITOURINARY/GYNECOLOGICAL Hx Genitourinary Disorders: Yes (SELF CATHETERIZATION) Hx Reproductive Disorders: Yes (PROSTATE CA ON CHEMO PILLS) - PSYCHIATRIC Hx Psychophysiologic Disorder: Yes Hx Anxiety: Yes Hx Substance Use: No - SURGICAL HISTORY Hx Surgeries: Yes (CYSTOSCOPY, TONSILLECTOMY) - ANESTHESIA Hx Anesthesia: Yes Hx Anesthesia Reactions: No Hx Malignant Hyperthermia: No Meds Allergies/Adverse Reactions: Allergies Allergy/AdvReac Type Severity Reaction Status Date / Time No Known Allergies Allergy Verified 10/18/17 09:25 - Medications Medications: Current Medications Albuterol/Ipratropium (Duoneb 3 Mg/0.5 Mg (3 Ml) Ud) 3 ml IH [id number]; Protocol Last Admin: 11/15/17 20:28 Dose: 3 ml Arformoterol Tartrate (Brovana) 15 mcg IH [id number] KRYS; Protocol Last Admin: 11/15/17 20:28 Dose: 15 mcg Aspirin (Ecotrin) 81 mg PO 0800 KRYS; Protocol Last Admin: 11/15/17 08:12 Dose: 81 mg Budesonide (Pulmicort Respules) 0.5 mg IH [id number] KRYS; Protocol Last Admin: 11/15/17 20:28 Dose: 0.5 mg Docusate Sodium (Colace) 100 mg PO DAILY [facility]; Protocol Last Admin: 11/15/17 09:16 Dose: 100 mg Famotidine (Pepcid) 20 mg PO HS [facility]; Protocol Last Admin: 11/15/17 21:27 Dose: 20 mg Ferrous Sulfate (Feosol) 324 mg PO WM RKYS; Protocol Last Admin: 11/15/17 17:16 Dose: 324 mg Fluticasone Propionate (Flonase) 1 actuation NS BID PRN; Protocol PRN Reason: Allergy symptoms Home Med (Home Med) 4 unit PO DAILY KRYS; Protocol Last Admin: 11/15/17 09:18 Dose: 4 unit Home Med (Home Med) 1 unit PO BID KRYS Last Admin: 11/15/17 17:16 Dose: Not Given Home Med (Home Med) 2 unit IH BID KRYS; Protocol Last Admin: 11/15/17 17:17 Dose: Not Given Meropenem 1,000 mg/ Sodium (Chloride) 50 mls @ 100 mls/hr IVPB 0600,1400,2200 KRYS; Protocol Stop: 11/21/17 22:01 Last Admin: 11/15/17 21:27 Dose: 100 mls/hr Latanoprost (Xalatan Opht) 0 ml OU HS KRYS; Protocol Last Admin: 11/15/17 21:27 Dose: 2.5 ml Levothyroxine Sodium (Synthroid) 112 mcg PO 0600 KRYS; Protocol Last Admin: 11/15/17 06:07 Dose: 112 mcg Loratadine (Claritin) 10 mg PO DAILY KRYS; Protocol Last Admin: 11/15/17 09:16 Dose: 10 mg Montelukast Sodium (Singulair) 10 mg PO HS KRYS; Protocol Last Admin: 11/15/17 21:27 Dose: 10 mg Phenazopyridine HCl (Pyridium) 100 mg PO Q8 PRN; Protocol PRN Reason: URINARY BURNING Tramadol HCl (Ultram) 50 mg PO TID PRN; Protocol PRN Reason: Pain, moderate (4-7) Results - Vital Signs Recent Vital Signs: Last Vital Signs Temp 98.1 F 11/15/17 16:00 Pulse 71 11/15/17 16:00 Resp 18 11/15/17 16:00 BP 111/68 11/15/17 16:00 Pulse Ox 95 11/15/17 16:00 Assessment & Plan - Assessment and Plan (Free Text) Assessment: IMP: PROSTATE CA VOIDING DYSFUNCTION. POSSIBLE RETENTION WITH OVERFLOW INCONTINENCE UTI ON INTERMITTENT SELF-CATHETERIZATION FULL NOTE TBD YS - Date & Time Date: 11/15/17 Time: 17:35
--- NOTE | 2017-11-15 22:27 | CON ---
DATE: 11/14/2017 PULMONARY CONSULTATION REFERRING PHYSICIAN: Dr. Sheth REASON FOR CONSULTATION: Chronic lung disease, sleep apnea syndrome. HISTORY OF PRESENT ILLNESS: This is a 82-year-old gentleman, well known to me from office previous admission and recently from [facility] side of the hospital, has a multiple medical issue including chronic obstructive lung disease, hypoventilation syndrome with prostate cancer with metastatic disease, hypertension, diabetes, hypothyroid, anemia, anxiety disorder. He has a bladder outlet obstruction, usually catheterize himself, end up with dysuria, bladder pain, comes in with sepsis, seen by Infectious Diseases, has UTI with multidrug assistance organism. He was admitted to [facility], now at [facility] for continued care, sitting up in a chair, participating in therapy. Night was unremarkable, tolerated CPAP well on nebulizer treatment. PAST MEDICAL HISTORY: As per history of present illness. ALLERGIES: NONE KNOWN. SOCIAL HISTORY: Former smoker. Denies any alcohol use. FAMILY HISTORY: No significant cardiopulmonary disease reported. MEDICATIONS: He is on Brovana inhaled twice a day, Claritin 10 mg daily, Colace 100 mg daily, DuoNeb every 6 hours, Ecotrin 81 mg daily, ferrous sulfate 324 mg with the meals, Flonase one spray twice a day p.r.n., meropenem 1 g IV every 8 hours, Pepcid 20 mg daily, Pulmicort inhaled twice a day, Pyridium 100 mg every 8 hours p.r.n., Singulair 10 mg daily, Synthroid 112 mcg daily, Ultram 50 mg every 8 hours p.r.n. REVIEW OF SYSTEMS: No headache, no rhinitis. Gets short of breath with exertion. No chest pain, no abdominal pain. No leg pain or leg swelling. Still needs to straight cath himself. PHYSICAL EXAMINATION: VITAL SIGNS: Temperature is 98, heart rate 65, respiratory rate is 20, blood pressure 135/61, pulse ox 98% on nasal cannula. HEENT: Moist mucous membrane. Crowded airway. NECK: Supple. No JVD. LUNGS: Have a fair airflow with few rhonchi. HEART: S1 and S2. ABDOMEN: Soft, nontender, no organomegaly. EXTREMITIES: No edema. NEUROLOGIC: Awake and alert, follows simple commands. LABORATORY DATA: Showed microbiology, blood culture and repeat culture, there is no growth. Hemoglobin 12.6, hematocrit 38.8, WBC 5.6, platelet is 167. Sodium 137, potassium 4.1, chloride 104. 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 Antibiotics as per Infectious Disease. Pulmonary point of view, continue bronchodilator. Keep head at 45 degrees. Encourage CPAP use. Fall precaution. Thank you and we will follow with you. Christy Bartlett MD
--- NOTE | 2017-11-15 23:01 | CON ---
DATE: 11/15/2017 LOCATION: Patient is in room 302. Patient was seen earlier this morning. CHIEF COMPLAINT: Urinary tract infection from several days. HISTORY OF PRESENT ILLNESS: An 82-year-old male with a chronic obstructive lung disease, hypertension, diabetes, hyperlipidemia, anemia, history of prostate cancer, history of cataract, glaucoma, and anemia. Patient's prostate cancer is to the bone metastasis. Patient is self urinary catheterization, was admitted with a urinary retention and Infectious Disease consultation was requested. Patient was in the acute care, now transferred to transitional care to complete antibiotic therapy and physical therapy. REVIEW OF SYSTEMS: A 12-point review of systems is made. Patient has no fevers, no chills, no chest pain, no abdominal pain at this time. No diarrhea or constipation. No headaches or blurred vision. PAST MEDICAL HISTORY: Significant for hypertension, COPD, diabetes, hyperlipidemia, anemia, prostate cancer with metastasis to the bone, cataract, glaucoma. PAST SURGICAL HISTORY: Significant for right chest tube placement. There is pneumothorax and cystoscopy and tonsillectomy. ALLERGIES: PATIENT HAS NO KNOWN ALLERGIES. MEDICATIONS AT HOME: Reviewed. PHYSICAL EXAMINATION: GENERAL: Patient is in bed in no acute distress. VITAL SIGNS: With a temperature of 98, blood pressure is 135/60, respiratory rate of 16. HEENT: Examination of HEENT is unremarkable. NECK: Supple. LUNGS: Have decreased breath sounds. HEART: Normal S1, S2. ABDOMEN: Soft, nontender. No rebound or guarding. LABORATORY EXAMINATION: Reveals the white count of 5.6, hemoglobin of 12, platelets of 167. Creatinine is noted. Microbiology reveals the patient has a Pseudomonas aeruginosa in the urine culture. ASSESSMENT AND PLAN: An 82-year-old male, was admitted with Pseudomonas urinary tract infection and urinary retention. The patient with a self catheterization, has hydroureter, prostate cancer with bony metastasis, on meropenem day #5 of 10 days. Review of orders confirms the patient's meropenem is active. We will follow closely with you. Juan Maldonado MD
[2017-11-16] MEDS: Albuterol-Ipratrop 3 mg / 0.5 (3 ml) UD IH SCH ×4 (03:25→19:48)
[2017-11-16] MEDS: Levothyroxine 112 MCG TAB PO SCH (05:16)
[2017-11-16] MEDS: Arformoterol 15 mcg/2 ml Inh Sol IH SCH ×2 (07:21→19:47)
[2017-11-16] MEDS: Budesonide 0.5 mg/2 ml Inhal Susp UD IH SCH ×2 (07:21→19:48)
[2017-11-16] MEDS: Home Med 1 UNIT PO SCH ×2 (09:34→17:57)
[2017-11-16] MEDS: ENZALUTAMIDE 40 MG PO SCH (09:34)
[2017-11-16] MEDS: SYMBICORT IH SCH ×2 (09:34→17:58)
--- NOTE | 2017-11-16 17:14 | HP ---
The patient was seen and examined on the bedside on 11/15/2017. CHIEF COMPLAINT: Coughing, shortness of breath, and lower abdominal pain. HISTORY OF PRESENT ILLNESS: Mr. Sam Pantoja is an 82 years old male, my private patient, has multiple hospitalizations and sometime he goes to [facility] also, has multiple medical problems including prostate cancer, chronic obstructive lung disease, hypoventilation syndrome, hypertension, diabetes mellitus, hypothyroidism, anemia, anxiety, prostate cancer with metastasis with intermittent self catheterization, has bladder outlet obstruction problem, normally he catheterizes himself, but ended up with dysuria, bladder pain, had come to [facility] Room with sepsis. Antibiotics was given. ID and Urology was consulted. Antibiotics given and got better. Transferred to TCU for further continuing of treatment about IV antibiotics and physical therapy. In TCU, he is doing better. PAST MEDICAL HISTORY: As above, prostate cancer with metastasis, COPD, hypertension, sleep apnea syndrome, obesity, noncompliance. ALLERGIES: THE PATIENT IS NOT ALLERGIC WITH ANY MEDICATIONS. SOCIAL HISTORY: Former smoker, now not smoking. No drugs. No ethanol. FAMILY HISTORY: Father and mother noncontributory. REVIEW OF SYSTEMS: The patient was seen and examined at the bedside. Gets shortness of breath on walking and coughing. No nausea or vomiting. No headache or dizziness. No chest pain. No palpitation. Tolerating antibiotics very well. PHYSICAL EXAMINATION VITAL SIGNS: Temperature 98, heart rate 65, respiratory rate 20, blood pressure 130/60, pulse oximeter 98% on nasal cannula. HEENT: Head: Normocephalic and atraumatic. Eyes: PERRLA. Extraocular muscles intact. Conjunctivae clear. Nose patent. NECK: Supple. No carotid bruits, JVD or thyromegaly. CHEST: Bilaterally symmetrical. HEART: S1 and S2 positive. LUNGS: Clear to auscultation. ABDOMEN: Soft. Bowel sounds present. No organomegaly. EXTREMITIES: No edema. No cyanosis. NEUROLOGIC: The patient is awake and alert. Moving all 4 extremities. No focal deficits. MEDICATIONS: He is on Brovana, loratadine, Colace, DuoNeb, Ecotrin, ferrous sulfate, Flonase, meropenem, Pulmicort, Pyridium and Singulair, Synthroid, Tramadol. LABORATORY DATA: We do not have recent labs in TCU, but I reviewed old labs from acute side of hospitalization. ASSESSMENT AND PLAN: Mr. Sam Pantoja is an 82 years old male with prostate cancer with metastasis, voiding dysfunction possibly retention with overflow incontinence, urinary tract infection, on intermittent self catheterization as per Dr. Barbara Goldstein, seen by Dr. Maldonado, Infectious Disease also; history of chronic obstructive lung disease, hypertension, diabetes mellitus, hypercholesterolemia, anemia, has Pseudomonas urinary tract infection and urinary retention with self catheterization, has hydroureter, prostate cancer in the bones, on meropenem and day 5 of 10. Continue present treatment. Physical therapy. Gastrointestinal and deep venous thrombosis prophylaxis. Appreciate Infectious Disease, Urology, and Pulmonary input. We will follow. Megan Sheth MD
[2017-11-16] MEDS: Latanoprost 2.5 ml Opht Soln OU SCH (21:17)
--- NOTE | 2017-11-16 21:46 | PN ---
DATE: 11/16/2017 SUBJECTIVE: The patient is in bed, in no acute distress, nontoxic. PHYSICAL EXAMINATION: VITAL SIGNS: On exam, temperature is 98, blood pressure is 120/60, respiratory rate of 20, heart rate of 70. HEENT: Examination of HEENT is unremarkable. NECK: Supple. LUNGS: Have decreased breath sounds. HEART: Normal S1 and S2. ABDOMEN: Soft, nontender. LABORATORY DATA: Laboratory examination reveals the patient's labs are reviewed. ASSESSMENT AND PLAN: This is an 82-year-old male who was admitted to the Transitional Care Unit, was admitted with Pseudomonas urinary tract infection, urinary retention, self catheterization, hydroureter, prostate cancer, bony metastasis. On meropenem, day #6. Would complete 10 days. Review of orders confirms the patient to be on meropenem. Juan Maldonado MD
--- NOTE | 2017-11-16 23:31 | PN ---
DATE: 11/16/2017 PULMONARY PROGRESS NOTE REFERRING PHYSICIAN: Megan Sheth MD SUBJECTIVE: Patient is sitting at side of the bed, watching TV. Night was unremarkable. Done well in therapy. No headache. No rhinitis. No nausea. No vomiting or diarrhea. Still doing straight cath. No leg swelling. OBJECTIVE: GENERAL: No acute distress. VITAL SIGNS: Temperature is 98, heart rate 71, respiratory rate is 20, blood pressure 122/51, pulse ox 97% on nasal cannula. HEENT: Moist mucous membrane. Crowded airway. Mallampati score is 4. NECK: Supple. No JVD. LUNGS: Have fair airflow with rhonchi. HEART: S1 and S2. ABDOMEN: Soft, nontender. No organomegaly. EXTREMITIES: No edema. NEUROLOGIC: Awake, alert. Follows simple command. MEDICATIONS: Brovana inhaled twice a day, Claritin 10 mg daily, Colace 100 mg daily, DuoNeb every 6 hours, Ecotrin 81 mg daily, ferrous sulfate 324 mg with meals, Flonase one spray to each nostril twice a day p.r.n., also on meropenem 1 g IV every 8 hours, Pepcid 20 mg daily, Pulmicort inhaled twice a day, Pyridium 100 mg every 8 hours p.r.n., Singulair 10 mg daily, Synthroid 112 mcg daily, tramadol 50 mg three times a day p.r.n. LABORATORY DATA: Reviewed. No new lab is available since yesterday. IMPRESSION AND PLAN: Urinary tract infection, bladder outlet obstruction, multi-drug resistant organism, metastatic prostate cancer to the bone, chronic obstructive lung disease, cardiomyopathy, anemia, hypertension, seasonal allergies, sleep apnea syndrome. Continue current CPAP while sleeping. Keep head at 45 degrees. Gastric prophylaxis. Deep venous thrombosis prophylaxis. Antibiotics as per Infectious Disease. Continue therapy. Thank you and we will follow with you. Christy Bartlett MD
[2017-11-17] MEDS: Albuterol-Ipratrop 3 mg / 0.5 (3 ml) UD IH SCH ×4 (01:32→20:39)
--- NOTE | 2017-11-17 01:58 | PN ---
DATE: 11/16/2017 SUBJECTIVE: The patient was seen and examined on bedside on 11/16/2017, looking comfortable. No fever. No chills. No nausea, vomiting, diarrhea. No headache. No dizziness. No hematuria or hematochezia. PHYSICAL EXAMINATION: VITAL SIGNS: Temperature 98, heart rate 71, respiratory rate 20, blood pressure 120/50, pulse oximetry 97% on room air with nasal cannula. HEENT: Head normocephalic, atraumatic. Eyes PERRLA. Extraocular muscles intact. Conjunctivae clear. Nose patent. NECK: Supple. No carotid bruit. No JVD or thyromegaly. CHEST: Bilaterally symmetrical. HEART: S1 and S2 positive. LUNGS: Clear to auscultation. ABDOMEN: Soft. No organomegaly. EXTREMITIES: No edema. No cyanosis. NEUROLOGICAL: The patient is awake, alert. Moving all 4 extremities. No focal deficits. MEDICATIONS: Brovana, Claritin, Colace, DuoNeb, Ecotrin, ferrous sulfate, Flonase, meropenem, Pepcid, Pulmicort, Pyridium, Singulair, Synthroid, tramadol. LABORATORY DATA: We do not have recent lab today, but I reviewed old labs. ASSESSMENT AND PLAN: Mr. 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 Continue the bilevel positive airway pressure. Compliant with bilevel positive airway pressure. Keep head elevated at 45. Gastric and deep venous thrombosis prophylaxis. Getting physical therapy. Antibiotics as per Infectious Disease. We will follow up. Megan Sheth MD
[2017-11-17] MEDS: Levothyroxine 112 MCG TAB PO SCH (05:29)
[2017-11-17] MEDS: Arformoterol 15 mcg/2 ml Inh Sol IH SCH ×2 (07:08→20:39)
[2017-11-17] MEDS: Budesonide 0.5 mg/2 ml Inhal Susp UD IH SCH ×2 (07:08→20:39)
[2017-11-17] MEDS: ENZALUTAMIDE 40 MG PO SCH (09:57)
[2017-11-17] MEDS: Home Med 1 UNIT PO SCH (09:58)
[2017-11-17] MEDS: SYMBICORT IH SCH (09:59)
--- NOTE | 2017-11-17 16:32 | CP.PCM.PN ---
Subjective - Date & Time of Evaluation Date of Evaluation: 11/17/17 Time of Evaluation: 10:45 - Subjective Subjective: Afebrile, non-toxic. Objective - Vital Signs/Intake and Output Vital Signs (last 24 hours): Temp Pulse Resp BP Pulse Ox 98 F 71 20 122/61 97 11/16/17 16:00 11/16/17 16:00 11/16/17 16:00 11/16/17 16:00 11/16/17 16:00 - Medications Medications: Current Medications Albuterol/Ipratropium (Duoneb 3 Mg/0.5 Mg (3 Ml) Ud) 3 ml IH [id number] KRYS; Protocol Last Admin: 11/16/17 19:48 Dose: 3 ml Arformoterol Tartrate (Brovana) 15 mcg IH [id number] KRYS; Protocol Last Admin: 11/16/17 19:47 Dose: 15 mcg Aspirin (Ecotrin) 81 mg PO 0800 KRYS; Protocol Last Admin: 11/16/17 08:08 Dose: 81 mg Budesonide (Pulmicort Respules) 0.5 mg IH [id number] KRYS; Protocol Last Admin: 11/16/17 19:48 Dose: 0.5 mg Docusate Sodium (Colace) 100 mg PO DAILY KRYS; Protocol Last Admin: 11/16/17 09:33 Dose: 100 mg Famotidine (Pepcid) 20 mg PO HS KRYS; Protocol Last Admin: 11/16/17 21:17 Dose: 20 mg Ferrous Sulfate (Feosol) 324 mg PO WM KRYS; Protocol Last Admin: 11/16/17 17:57 Dose: 324 mg Fluticasone Propionate (Flonase) 1 actuation NS BID PRN; Protocol PRN Reason: Allergy symptoms Home Med (Home Med) 4 unit PO DAILY KRYS; Protocol Last Admin: 11/16/17 09:34 Dose: 4 unit Home Med (Home Med) 1 unit PO BID KRYS Last Admin: 11/16/17 17:57 Dose: Not Given Home Med (Home Med) 2 unit IH BID KRYS; Protocol Last Admin: 11/16/17 17:58 Dose: Not Given Meropenem 1,000 mg/ Sodium (Chloride) 50 mls @ 100 mls/hr IVPB 0600,1400,2200 KRYS; Protocol Stop: 11/21/17 22:01 Last Admin: 11/16/17 21:13 Dose: 100 mls/hr Latanoprost (Xalatan Opht) 0 ml OU HS KRYS; Protocol Last Admin: 11/16/17 21:17 Dose: 2.5 ml Levothyroxine Sodium (Synthroid) 112 mcg PO 0600 KRYS; Protocol Last Admin: 11/16/17 05:16 Dose: 112 mcg Loratadine (Claritin) 10 mg PO DAILY KRYS; Protocol Last Admin: 11/16/17 09:33 Dose: 10 mg Montelukast Sodium (Singulair) 10 mg PO HS KRYS; Protocol Last Admin: 11/16/17 21:17 Dose: 10 mg Phenazopyridine HCl (Pyridium) 100 mg PO Q8 PRN; Protocol PRN Reason: URINARY BURNING Tramadol HCl (Ultram) 50 mg PO TID PRN; Protocol PRN Reason: Pain, moderate (4-7) Last Admin: 11/16/17 03:07 Dose: 50 mg - Constitutional Appears: Non-toxic, Chronically Ill - Head Exam Head Exam: NORMAL INSPECTION - Respiratory Exam Respiratory Exam: Decreased Breath Sounds - Cardiovascular Exam Cardiovascular Exam: +S1, +S2 - GI/Abdominal Exam GI & Abdominal Exam: Soft. absent: Tenderness Assessment and Plan - Assessment and Plan (Free Text) Plan: Assessment consider UTI with Pseudomonas in patient who does self-catheterization, associated with hydroureter prostate cancer with bone metastases Plan Will continue Merrem day 7 to complete up to 10 days of antibiotics overall prognosis is poor
[2017-11-17] MEDS: Latanoprost 2.5 ml Opht Soln OU SCH (21:02)
--- NOTE | 2017-11-17 23:13 | PN ---
DATE: 11/17/2017 PULMONARY PROGRESS NOTE REFERRING PHYSICIAN: Dr. Sheth SUBJECTIVELY: He is lying in the bed head at 45 degrees. Night was unremarkable. Tolerated CPAP well. No cough or sputum production. Gets short of breath with exertion. No chest pain. No nausea. Still has a bladder outlet obstruction, requiring a straight cath. No leg swelling. OBJECTIVE: GENERAL: In no acute distress. VITAL SIGNS: Temperature is 98, heart rate 75, respiratory rate is 18, blood pressure 127/80, pulse ox 97% on 2 liters nasal cannula. HEENT: Moist mucous membrane. Crowded airway. Mallampati score is 4. NECK: Supple. No JVD. LUNGS: Have a fair airflow with rhonchi. HEART: S1 and S2. ABDOMEN: Soft, nontender, no organomegaly. EXTREMITIES: No edema. NEUROLOGIC: Awake and alert, follows simple command. MEDICATIONS: Brovana inhaled twice a day, Claritin 10 mg daily, Colace 100 mg daily, DuoNeb every 6 hours, Ecotrin 81 mg daily, ferrous sulfate 324 mg with meals, Flonase one spray to each nostril p.r.n., meropenem 1 g IV three times a day, Pepcid 20 mg daily, Pulmicort inhaled twice a day, Pyridium 100 mg every 8 hours p.r.n., Singulair 10 mg daily, Synthroid 112 mcg daily, Ultram 50 mg every 8 hours p.r.n. LABORATORY DATA: Reviewed. No new lab is available since yesterday. IMPRESSION AND PLAN: Urinary tract infection, bladder outlet obstruction, drug resistance organism, metastatic prostate cancer to the bone, chronic obstructive lung disease, cardiomyopathy, anemia, hypertension, seasonal allergies, sleep apnea syndrome. Continue current CPAP use. Keep head at 45 degrees. Bronchodilator, gastric prophylaxis, deep venous thrombosis prophylaxis. On antibiotics. Continue therapy. Thank you and we will follow with you. Christy Bartlett MD
[2017-11-18] MEDS: Albuterol-Ipratrop 3 mg / 0.5 (3 ml) UD IH SCH ×4 (02:00→21:50)
[2017-11-18] MEDS: Levothyroxine 112 MCG TAB PO SCH (05:19)
--- NOTE | 2017-11-18 06:38 | PN ---
DATE: 11/17/2017 SUBJECTIVE: This is an 82-year-old male. The patient was seen and examined on the bedside on 11/17/2017. Looking comfortable. No nausea, vomiting or diarrhea. No hematuria or hematochezia. No swelling of the leg. No chest pain. No palpitation. As per patient, he is feeling pain in the body status post physical therapy. As per patient, he did too much physical therapy today, but no shortness of breath. No nausea, vomiting or diarrhea. No fever, no chills. PHYSICAL EXAMINATION: VITAL SIGNS: Temperature 98, heart rate is 75, respiratory rate 18, blood pressure 127/80, pulse oximetry 97% on 2 L nasal cannula. HEENT: Head normocephalic, atraumatic. Eyes PERRLA. Extraocular muscles intact. Conjunctivae clear. Nose patent. Mucous membrane moist. NECK: Supple. No carotid bruit. No JVD or thyromegaly. HEART: S1 and S2 positive. LUNGS: Clear to auscultation. ABDOMEN: Soft. Bowel sounds positive. No organomegaly. EXTREMITIES: No edema. No cyanosis. NEUROLOGICAL: The patient is awake and alert. Moving all 4 extremities. No focal deficits. MEDICATIONS: Brovana, Claritin, Colace, DuoNeb, Ecotrin, ferrous sulfate, Flonase, meropenem, Pepcid, Pulmicort, Pyridium, Singulair, Synthroid, tramadol. LABORATORY DATA: We do not have recent lab today, but I reviewed old labs. ASSESSMENT AND PLAN: Mr. Sam Pantoja is an 82-year-old male with urinary tract infection, bladder outlet obstruction, history of prostate cancer with metastasis to the lungs and brain, urinary tract infection, chronic obstructive lung disease, cardiomyopathy, anemia, hypertension, seasonal allergies, sleep apnea syndrome, using continuous positive airway pressure. Seen by Dr. Bartlett. Continue bronchodilators, gastric prophylaxis, deep venous thrombosis prophylaxis, antibiotics. Seen by Infectious Disease, Dr. Kenrick Pascal. The patient is afebrile and nontoxic. Urinary tract infection with Pseudomonas, previous history of self catheterization. Continue Merrem; today is day #7; need 10 days of antibiotics. Gastrointestinal and deep vein thrombosis prophylaxes. Repeat labs. We will follow up. Megan Sheth MD YUN
[2017-11-18] MEDS: Arformoterol 15 mcg/2 ml Inh Sol IH SCH ×2 (07:31→21:50)
[2017-11-18] MEDS: Budesonide 0.5 mg/2 ml Inhal Susp UD IH SCH ×2 (07:31→21:50)
[2017-11-18] MEDS: ENZALUTAMIDE 40 MG PO SCH (10:03)
--- NOTE | 2017-11-18 12:53 | CP.PCM.PN ---
Subjective - Date & Time of Evaluation Date of Evaluation: 11/18/17 Time of Evaluation: 12:45 - Subjective Subjective: No fevers, not in distress, no more burning sensation when doing urinary catheterization. Objective - Vital Signs/Intake and Output Vital Signs (last 24 hours): Temp Pulse Resp BP Pulse Ox 98.3 F 75 18 127/80 97 11/17/17 15:50 11/18/17 02:01 11/17/17 15:50 11/17/17 15:50 11/17/17 15:50 - Medications Medications: Current Medications Albuterol/Ipratropium (Duoneb 3 Mg/0.5 Mg (3 Ml) Ud) 3 ml IH [id number] [facility]YS; Protocol Last Admin: 11/18/17 07:31 Dose: 3 ml Arformoterol Tartrate (Brovana) 15 mcg IH [id number] [facility]; Protocol Last Admin: 11/18/17 07:31 Dose: 15 mcg Aspirin (Ecotrin) 81 mg PO 0800 [facility]; Protocol Last Admin: 11/18/17 08:23 Dose: 81 mg Budesonide (Pulmicort Respules) 0.5 mg IH [id number] [facility]; Protocol Last Admin: 11/18/17 07:31 Dose: 0.5 mg Docusate Sodium (Colace) 100 mg PO DAILY [facility]; Protocol Last Admin: 11/18/17 10:03 Dose: 100 mg Famotidine (Pepcid) 20 mg PO HS [facility]; Protocol Last Admin: 11/17/17 21:02 Dose: 20 mg Ferrous Sulfate (Feosol) 324 mg PO WM [facility]; Protocol Last Admin: 11/18/17 08:23 Dose: 324 mg Fluticasone Propionate (Flonase) 1 actuation NS BID PRN; Protocol PRN Reason: Allergy symptoms Home Med (Home Med) 4 unit PO DAILY [facility]; Protocol Last Admin: 11/18/17 10:03 Dose: 4 unit Meropenem 1,000 mg/ Sodium (Chloride) 50 mls @ 100 mls/hr IVPB 0600,1400,2200 [facility]; Protocol Stop: 11/21/17 22:01 Last Admin: 11/18/17 05:19 Dose: 100 mls/hr Latanoprost (Xalatan Opht) 0 ml OU HS [facility]; Protocol Last Admin: 11/17/17 21:02 Dose: 2.5 ml Levothyroxine Sodium (Synthroid) 112 mcg PO 0600 [facility]; Protocol Last Admin: 11/18/17 05:19 Dose: 112 mcg Loratadine (Claritin) 10 mg PO DAILY [facility]; Protocol Last Admin: 11/18/17 10:03 Dose: 10 mg Montelukast Sodium (Singulair) 10 mg PO HS [facility]; Protocol Last Admin: 11/17/17 21:02 Dose: 10 mg Phenazopyridine HCl (Pyridium) 100 mg PO Q8 PRN; Protocol PRN Reason: URINARY BURNING Tramadol HCl (Ultram) 50 mg PO TID PRN; Protocol PRN Reason: Pain, moderate (4-7) Last Admin: 11/18/17 06:10 Dose: 50 mg - Constitutional Appears: Non-toxic, No Acute Distress, Chronically Ill - Head Exam Head Exam: NORMAL INSPECTION - Respiratory Exam Respiratory Exam: Decreased Breath Sounds - Cardiovascular Exam Cardiovascular Exam: +S1, +S2 - GI/Abdominal Exam GI & Abdominal Exam: Soft. absent: Tenderness Assessment and Plan - Assessment and Plan (Free Text) Plan: Assessment consider UTI with Pseudomonas in patient who does self-catheterization, associated with hydroureter prostate cancer with bone metastases Plan Will continue Merrem day 8 to complete up to 10 days of antibiotics overall prognosis is poor
--- NOTE | 2017-11-18 21:17 | PN ---
DATE: 11/18/2017 REFERRING PHYSICIAN: Megan Sheth MD SUBJECTIVE: He is lying in the bed. Day was unremarkable. Tolerating CPAP well. No cough. No sputum production. No vomiting, no hematuria, no diarrhea. Still doing self catheterization for urine. No leg pain or leg swelling. OBJECTIVE: GENERAL: No acute distress. VITAL SIGNS: Temperature is 98, heart rate 76, respiratory rate is 20, blood pressure 138/75, pulse ox 96% on 2 liters nasal cannula. HEENT: Moist mucous membrane. Crowded airway. NECK: Supple. No JVD. LUNGS: Have a fair airflow with rhonchi. HEART: S1, S2. ABDOMEN: Soft, nontender. No organomegaly. EXTREMITIES: No edema. NEUROLOGIC: Awake, alert and follows simple command. MEDICATIONS: He is on Brovana inhaled twice a day, Claritin 10 mg daily, Colace 100 mg daily, DuoNeb every 6 hours, Ecotrin 81 mg daily, ferrous sulfate 324 mg with the meals, Flonase one spray to each nostril twice a day, meropenem 1000 mg three times a day, Pepcid 20 mg at bedtime., Pulmicort inhaled twice a day, Pyridium 100 mg every 8 hours p.r.n., Singulair 10 mg daily, levothyroxine 112 mcg daily, Ultram 50 mg 3 times a day p.r.n. LABORATORY DATA: Reviewed. No new lab is available. IMPRESSION AND PLAN: Urinary tract infection, bladder outlet obstruction, prostate cancer with metastatic disease. has a multi-drug resistant organism in the urine, chronic obstructive lung disease, cardiomyopathy, anemia, hypertension, seasonal allergies, sleep apnea syndrome. Continue CPAP while sleeping. Keep head at 45 degrees. Bronchodilator, gastric prophylaxis, DVT prophylaxis. Antibiotics as per Infectious Diseases. Continue therapy. Thank you and we will follow with you. Christy Bartlett MD
[2017-11-18] MEDS: Latanoprost 2.5 ml Opht Soln OU SCH (21:34)
--- NOTE | 2017-11-19 00:21 | PN ---
DATE: 11/18/2017 SUBJECTIVE: The patient was seen and examined on the bedside on 11/18/2017. Looking comfortable. Lying down. Tolerating the CPAP very well. Did physical therapy. No cough. No shortness of breath. No sputum production. No nausea or vomiting. No diarrhea. Has good bowel movement. Still doing self catheterization of the urine. PHYSICAL EXAMINATION: VITAL SIGNS: Temperature 99, heart rate 76, respiratory rate 20, blood pressure 138/75, pulse oximetry 96% on room air. HEENT: Head normocephalic, atraumatic. Eyes PERRLA. Extraocular muscles intact. Conjunctivae clear. Nose patent. Mucous membrane moist. NECK: Supple. No carotid bruit. No JVD or thyromegaly. CHEST: Bilaterally symmetrical. HEART: S1 and S2 positive. LUNGS: Have fair airflow with rhonchi. ABDOMEN: Soft, nontender. No organomegaly. EXTREMITIES: No edema. No cyanosis. NEUROLOGICAL: The patient is awake, alert. Follows simple commands. MEDICATIONS: Brovana inhalation, Claritin, Colace, DuoNeb, Ecotrin, ferrous sulfate, Flonase, meropenem, Pepcid, Pulmicort, Pyridium, Singulair, levothyroxine, tramadol. LABORATORY DATA: We do not have recent labs today, but I reviewed old labs. ASSESSMENT AND PLAN: Mr. Sam Pantoja, 82-year-old male with history of chronic obstructive pulmonary disease, urinary tract infection, bladder outlet obstruction, prostate cancer with metastasis to the bones and the lungs, has multi resistant organism in the urine, cardiomegaly, obstructive sleep apnea syndrome, anemia, hypertension, seasonal allergies. Continue continuous positive airway pressure and the patient is tolerating it very well, bronchodilators. Gastrointestinal, deep venous thrombosis prophylaxis. Discussion done with the patient and nursing staff. He is tolerating physical therapy very well. Repeat labs. We will follow up. Megan Sheth MD
[2017-11-19] MEDS: Albuterol-Ipratrop 3 mg / 0.5 (3 ml) UD IH SCH ×4 (03:05→20:29)
[2017-11-19] MEDS: Levothyroxine 112 MCG TAB PO SCH (05:42)
[2017-11-19] MEDS: Arformoterol 15 mcg/2 ml Inh Sol IH SCH ×2 (08:50→20:29)
[2017-11-19] MEDS: Budesonide 0.5 mg/2 ml Inhal Susp UD IH SCH ×2 (08:50→20:30)
[2017-11-19] MEDS: ENZALUTAMIDE 40 MG PO SCH (09:59)
[2017-11-19 10:11] VITALS: RESP 18
--- NOTE | 2017-11-19 10:43 | CP.PCM.PN ---
Subjective - Date & Time of Evaluation Date of Evaluation: 11/19/17 Time of Evaluation: 08:40 - Subjective Subjective: Comfortable, no fevers. Objective - Vital Signs/Intake and Output Vital Signs (last 24 hours): Temp Pulse Resp BP Pulse Ox 98.2 F 80 20 138/75 96 11/18/17 16:00 11/18/17 23:30 11/18/17 16:00 11/18/17 16:00 11/18/17 16:00 - Medications Medications: Current Medications Albuterol/Ipratropium (Duoneb 3 Mg/0.5 Mg (3 Ml) Ud) 3 ml IH [id number] KRYS; Protocol Last Admin: 11/19/17 03:05 Dose: 3 ml Arformoterol Tartrate (Brovana) 15 mcg IH [id number] KRYS; Protocol Last Admin: 11/18/17 21:50 Dose: 15 mcg Aspirin (Ecotrin) 81 mg PO 0800 [facility]; Protocol Last Admin: 11/18/17 08:23 Dose: 81 mg Budesonide (Pulmicort Respules) 0.5 mg IH [id number] KRYS; Protocol Last Admin: 11/18/17 21:50 Dose: 0.5 mg Docusate Sodium (Colace) 100 mg PO DAILY [facility]; Protocol Last Admin: 11/18/17 10:03 Dose: 100 mg Famotidine (Pepcid) 20 mg PO HS [facility]; Protocol Last Admin: 11/18/17 21:33 Dose: 20 mg Ferrous Sulfate (Feosol) 324 mg PO WM [facility]; Protocol Last Admin: 11/18/17 16:54 Dose: 324 mg Fluticasone Propionate (Flonase) 1 actuation NS BID PRN; Protocol PRN Reason: Allergy symptoms Home Med (Home Med) 4 unit PO DAILY [facility]; Protocol Last Admin: 11/18/17 10:03 Dose: 4 unit Meropenem 1,000 mg/ Sodium (Chloride) 50 mls @ 100 mls/hr IVPB 0600,1400,2200 [facility]; Protocol Stop: 11/21/17 22:01 Last Admin: 11/19/17 05:42 Dose: 100 mls/hr Latanoprost (Xalatan Opht) 0 ml OU HS [facility]; Protocol Last Admin: 11/18/17 21:34 Dose: 2.5 ml Levothyroxine Sodium (Synthroid) 112 mcg PO 0600 [facility]; Protocol Last Admin: 11/19/17 05:42 Dose: 112 mcg Loratadine (Claritin) 10 mg PO DAILY [facility]; Protocol Last Admin: 11/18/17 10:03 Dose: 10 mg Montelukast Sodium (Singulair) 10 mg PO HS [facility]; Protocol Last Admin: 11/18/17 21:33 Dose: 10 mg Phenazopyridine HCl (Pyridium) 100 mg PO Q8 PRN; Protocol PRN Reason: URINARY BURNING Tramadol HCl (Ultram) 50 mg PO TID PRN; Protocol PRN Reason: Pain, moderate (4-7) Last Admin: 11/18/17 19:17 Dose: 50 mg - Constitutional Appears: Non-toxic, Chronically Ill - Head Exam Head Exam: NORMAL INSPECTION - Respiratory Exam Respiratory Exam: Decreased Breath Sounds - Cardiovascular Exam Cardiovascular Exam: +S1, +S2 - GI/Abdominal Exam GI & Abdominal Exam: Soft. absent: Tenderness Assessment and Plan - Assessment and Plan (Free Text) Plan: Assessment consider UTI with Pseudomonas in patient who does self-catheterization, associated with hydroureter prostate cancer with bone metastases Plan Will continue Merrem day 9 to complete up to 10 days of antibiotics overall prognosis is poor
--- NOTE | 2017-11-19 15:48 | PN ---
DATE: 11/19/2017 PULMONARY PROGRESS NOTE REFERRING PHYSICIAN: Megan Sheth MD. SUBJECTIVE: The patient is lying in the bed, head at 45 degrees, sleepy, arousable. Night was unremarkable, tolerated CPAP well. Still has some burning of the urine. No nausea, no vomiting, no diarrhea. No leg pain or leg swelling. PHYSICAL EXAMINATION: GENERAL: In no acute distress. VITAL SIGNS: Temperature is 98, heart rate is 66, respiratory rate is 18, blood pressure 137/78, pulse ox 97% on nasal cannula. HEENT: Moist mucous membrane. Crowded airway. NECK: Supple. No JVD. LUNGS: Have a fair airflow with rhonchi. HEART: S1 and S2. ABDOMEN: Soft, nontender, no organomegaly. EXTREMITIES: No edema. NEUROLOGIC: Sleepy, arousable. Follows simple command. MEDICATIONS: He is on Brovana inhaled twice a day, Claritin 10 mg daily, Colace 100 mg daily, albuterol, Atrovent inhaled every 6 hours, Ecotrin 81 mg daily, ferrous sulfate 324 mg with the meals, Flonase one spray in each nostril twice a day, meropenem 1 g IV three times a day, Pepcid 20 mg at bedtime, Pulmicort inhaled twice a day, Pyridium 100 mg every 8 hours p.r.n., Singulair 10 mg at bedtime, Synthroid 112 mcg daily, Ultram 50 mg three times a day p.r.n. LABORATORY DATA: Reviewed. No new lab is available since yesterday. IMPRESSION AND PLAN: Urinary tract infection, bladder outlet obstruction, prostate cancer with metastatic disease, multidrug resistant organism in the urine, chronic obstructive lung disease, cardiomyopathy, anemia, hypertension, seasonal allergies, sleep apnea syndrome. We will change Pyridium to [id number]. Continue CPAP while sleeping. Keep head at 45 degrees. Bronchodilator, antibiotics as per Infectious Diseases. Gastric and DVT prophylaxis. We will follow up labs in the morning. Thank you and we will follow with you. Christy Bartlett MD
[2017-11-19] MEDS: Latanoprost 2.5 ml Opht Soln OU SCH (21:10)
--- NOTE | 2017-11-20 02:57 | PN ---
DATE: 11/19/2017 SUBJECTIVE: The patient was seen and examined on the bedside on 11/19/2017. Looking comfortable. No nausea, vomiting, or diarrhea. No hematuria or hematochezia. No swelling of the legs. No chest pain. No palpitation. No headache. No dizziness. PHYSICAL EXAMINATION: VITAL SIGNS: Temperature 98, heart rate 66, respiratory rate 18, blood pressure 130/70, pulse oximetry 97% on nasal cannula. HEENT: Head normocephalic, atraumatic. Eyes PERRLA. Extraocular muscles intact. Conjunctivae clear. Nose patent. Mucous membrane moist. NECK: Supple. No carotid bruit. No JVD or thyromegaly. CHEST: Bilaterally symmetrical. HEART: S1 and S2 positive. LUNGS: Clear to auscultation. ABDOMEN: Soft, nontender. No organomegaly. EXTREMITIES: No edema. No cyanosis. NEUROLOGICAL: The patient is awake and alert. Moving all 4 extremities. No focal deficits. MEDICATIONS: Brovana, Claritin, Colace, albuterol, Ecotrin, ferrous sulfate, Flonase, meropenem, Pepcid, Pulmicort, Pyridium, Singulair, Synthroid, tramadol. LABORATORY DATA: We do not have recent labs today, but I reviewed old labs. ASSESSMENT AND PLAN: Mr. Sam Pantoja is an 82-year-old male with urinary tract infection, bladder outlet obstruction, prostate cancer with metastatic disease, multi-drug resistant organism in the urine, chronic obstructive lung disease, cardiomyopathy, anemia, hypertension, seasonal allergies, sleep apnea syndrome. Continue CPAP while sleeping. Keep head elevated. Bronchodilators. Antibiotics as per Infectious Disease. Gastric and deep venous thrombosis prophylaxes. Repeat labs. We will follow up. Megan Sheth MD
[2017-11-20] MEDS: Albuterol-Ipratrop 3 mg / 0.5 (3 ml) UD IH SCH ×4 (03:05→20:36)
[2017-11-20] MEDS: Levothyroxine 112 MCG TAB PO SCH (05:35)
[2017-11-20] MEDS: Arformoterol 15 mcg/2 ml Inh Sol IH SCH ×2 (07:28→20:36)
[2017-11-20] MEDS: Budesonide 0.5 mg/2 ml Inhal Susp UD IH SCH ×2 (07:31→20:36)
[2017-11-20] MEDS: ENZALUTAMIDE 40 MG PO SCH (09:27)
--- NOTE | 2017-11-20 13:43 | CP.PCM.PN ---
Subjective - Date & Time of Evaluation Date of Evaluation: 11/20/17 Time of Evaluation: 11:10 - Subjective Subjective: No fevers, not in distress, afebrile. Doing his physical therapy well. Objective - Vital Signs/Intake and Output Vital Signs (last 24 hours): Temp Pulse Resp BP Pulse Ox 98 F 82 18 137/78 97 11/19/17 10:00 11/19/17 23:30 11/19/17 10:00 11/19/17 10:00 11/19/17 10:00 - Medications Medications: Current Medications Albuterol/Ipratropium (Duoneb 3 Mg/0.5 Mg (3 Ml) Ud) 3 ml IH [id number]; Protocol Last Admin: 11/20/17 13:14 Dose: 3 ml Arformoterol Tartrate (Brovana) 15 mcg IH [id number] [facility]; Protocol Last Admin: 11/20/17 07:28 Dose: 15 mcg Aspirin (Ecotrin) 81 mg PO 0800 [facility]; Protocol Last Admin: 11/20/17 09:26 Dose: 81 mg Budesonide (Pulmicort Respules) 0.5 mg IH [id number] [facility]; Protocol Last Admin: 11/20/17 07:31 Dose: 0.5 mg Docusate Sodium (Colace) 100 mg PO DAILY [facility]; Protocol Last Admin: 11/20/17 09:27 Dose: 100 mg Famotidine (Pepcid) 20 mg PO HS [facility]; Protocol Last Admin: 11/19/17 21:09 Dose: 20 mg Ferrous Sulfate (Feosol) 324 mg PO WM [facility]; Protocol Last Admin: 11/20/17 12:13 Dose: 324 mg Fluticasone Propionate (Flonase) 1 actuation NS BID PRN; Protocol PRN Reason: Allergy symptoms Home Med (Home Med) 4 unit PO DAILY [facility]; Protocol Last Admin: 11/20/17 09:27 Dose: 4 unit Meropenem 1,000 mg/ Sodium (Chloride) 50 mls @ 100 mls/hr IVPB 0600,1400,2200 [facility]; Protocol Stop: 11/21/17 22:01 Last Admin: 11/20/17 05:35 Dose: 100 mls/hr Latanoprost (Xalatan Opht) 0 ml OU HS [facility]; Protocol Last Admin: 11/19/17 21:10 Dose: 2.5 ml Levothyroxine Sodium (Synthroid) 112 mcg PO 0600 [facility]; Protocol Last Admin: 11/20/17 05:35 Dose: 112 mcg Loratadine (Claritin) 10 mg PO DAILY [facility]; Protocol Last Admin: 11/20/17 09:27 Dose: 10 mg Montelukast Sodium (Singulair) 10 mg PO HS [facility]; Protocol Last Admin: 11/19/17 21:09 Dose: 10 mg Phenazopyridine HCl (Pyridium) 100 mg PO Q8 [facility]; Protocol Last Admin: 11/20/17 05:35 Dose: 100 mg Tramadol HCl (Ultram) 50 mg PO TID PRN; Protocol PRN Reason: Pain, moderate (4-7) Last Admin: 11/18/17 19:17 Dose: 50 mg - Constitutional Appears: No Acute Distress, Chronically Ill - Head Exam Head Exam: NORMAL INSPECTION - Respiratory Exam Respiratory Exam: Decreased Breath Sounds - Cardiovascular Exam Cardiovascular Exam: +S1, +S2 - GI/Abdominal Exam GI & Abdominal Exam: Soft. absent: Tenderness Assessment and Plan - Assessment and Plan (Free Text) Plan: Assessment consider UTI with Pseudomonas in patient who does self-catheterization, associated with hydroureter prostate cancer with bone metastases Plan Will continue Merrem day 10 to complete up to 10 days of antibiotics - will d/c today overall prognosis is poor
[2017-11-20 16:22] VITALS: TEMP 98.5
[2017-11-20] MEDS: Latanoprost 2.5 ml Opht Soln OU SCH (22:34)
--- NOTE | 2017-11-21 02:34 | PN ---
DATE: 11/20/2017 PULMONARY PROGRESS NOTE: REFERRING PHYSICIAN: Megan Sheth MD. SUBJECTIVE: He is lying in the bed, head at 45 degrees. Night was unremarkable, tolerating CPAP well. No headache. No rhinitis. No nausea. No vomiting. Urine burning is better since started on Pyridium [id number]. No leg pain. No leg swelling. OBJECTIVE: GENERAL: In no acute distress. VITAL SIGNS: Temperature is 98, heart rate is 70, respiratory rate is 18, blood pressure 117/63, pulse ox 93% on nasal cannula. HEENT: Moist mucous membrane. No ulcer or thrush noted. NECK: Supple. No JVD. LUNGS: Have a fair airflow with rhonchi. HEART: S1 and S2. ABDOMEN: Soft, nontender. No organomegaly. EXTREMITIES: No edema. NEUROLOGICAL: Awake, alert. Follows simple command. MEDICATIONS: He is on Brovana inhaled twice a day, Claritin 10 mg daily, Colace 100 mg daily, DuoNeb every 6 hours, Ecotrin 81 mg daily, ferrous sulfate 325 mg with the meals, Flonase one spray each nostril twice a day, meropenem 1 g IV three times a day, Pepcid 20 mg at bedtime, Pulmicort inhaled twice a day, Singulair 10 mg daily Pyridium 100 mg every 8 hours, Synthroid 112 mcg daily, Ultram 15 mg three times a day p.r.n. IMPRESSION AND PLAN: Urinary tract infection, bladder outlet obstruction requiring catheterization, history of prostate cancer with mets, urinary tract infection with resistant organism, chronic obstructive lung disease, cardiomyopathy, anemia, hypertension, seasonal allergies, sleep apnea syndrome. We will continue continuous positive airway pressure while sleeping. Keep head at 45 degrees. Antibiotics as per Infectious Diseases. Pyridium for urine burning. Gastric and deep venous thrombosis prophylaxis. Continue therapy. Thank you and we will follow with you. Christy Bartlett MD
[2017-11-21] MEDS: Albuterol-Ipratrop 3 mg / 0.5 (3 ml) UD IH SCH ×4 (03:20→19:39)
[2017-11-21] MEDS: Levothyroxine 112 MCG TAB PO SCH (05:18)
[2017-11-21] MEDS: Budesonide 0.5 mg/2 ml Inhal Susp UD IH SCH ×2 (07:16→19:39)
[2017-11-21] MEDS: Arformoterol 15 mcg/2 ml Inh Sol IH SCH ×2 (07:16→19:38)
--- NOTE | 2017-11-21 08:07 | PN ---
DATE: 11/20/2017 SUBJECTIVE: The patient is an 82-year-old male. Patient was seen and examined at the bedside on 11/20/2017. Looking comfortable. No fever. No distress. Did his physical therapy today but looks a little bit sad and happy. He is happy that he got his great-grandson today but he is sad that he lost one of the grandson but I pay my condolence and talk to the patient, he feel better after that. PHYSICAL EXAMINATION VITAL SIGNS: Temperature 98, pulse 82, respiratory rate 18, blood pressure 137/78, respiratory rate 18. HEENT: Head: Normocephalic, atraumatic. Eyes: PERRLA. Extraocular muscles intact. Conjunctivae clear. Nose patent. Mucous membranes moist. NECK: Supple. No carotid bruits. No JVD or thyromegaly. CHEST: Bilaterally symmetrical. HEART: S1 and S2 positive. LUNGS: Clear to auscultation, ABDOMEN: Soft. Bowel sounds positive. No organomegaly. EXTREMITIES: No edema. No cyanosis. NEUROLOGIC: Patient is awake and alert. Moving all four extremities. No focal deficits. MEDICATIONS: DuoNeb, Brovana, Ecotrin, Pulmicort, Colace, Pepcid, Feosol, Flonase, eyedrops, levothyroxine, Claritin, Pyridium, tramadol. ASSESSMENT AND PLAN: Mr. Sam Pantoja is an 82-year-old male, having urinary tract infection with Pseudomonas in the patient who has self catheterization associated with hydroureter, had bone marrow metastasis. We will continue Merrem on day of 10, to be completed day [address] to Dr[address] Kenrick Pascal, overall prognosis is poor very soon. Physical therapy. We will follow up. Megan Sheth MD YUN
[2017-11-21] MEDS: ENZALUTAMIDE 40 MG PO SCH (10:48)
[2017-11-21 16:18] VITALS: BP 128/79; PULSE 72; O2SAT 97
[2017-11-21] MEDS: Latanoprost 2.5 ml Opht Soln OU SCH (22:30)
--- NOTE | 2017-11-22 01:31 | PN ---
DATE: 11/21/2017 SUBJECTIVE: The patient is in bed, in no acute distress, was seen early this morning. No fevers or chills. No nausea. No vomiting. PHYSICAL EXAMINATION: VITAL SIGNS: Temperature is 98, blood pressure is 120/70, respiratory rate 16. HEENT: Examination of HEENT is unremarkable. NECK: Supple. LUNGS: Have decreased breath sounds. HEART: Normal S1 and S2. ABDOMEN: Soft. LABORATORY DATA: Reviewed. ASSESSMENT AND PLAN: This is an 82-year-old male with urinary tract infection with Pseudomonas, does do self catheterization associated with hydroureter, on meropenem and completed the meropenem yesterday was day #10 . We will discontinue the antibiotic. We will follow . Juan Maldonado MD
--- NOTE | 2017-11-22 01:51 | PN ---
DATE: 11/21/2017 PULMONARY PROGRESS NOTE REFERRING PHYSICIAN: Dr. Sheth SUBJECTIVE: The patient is lying in the bed of head at 45 degrees. Feels okay. No more burning in the urine. Still need straight cath. No leg swelling. No chest pain. No short of breath. No nausea, no vomiting, no diarrhea. Using CPAP at night. OBJECTIVE: GENERAL: In no acute distress. VITAL SIGNS: Temperature is 98, heart rate 72, respiratory rate is 18, blood pressure 128/79, pulse ox 97% on 2 liters nasal cannula. HEENT: Moist mucous membrane. Crowded airway. NECK: Supple. No JVD. LUNGS: Have fair airflow with few rhonchi. HEART: S1 and S2. ABDOMEN: Soft, nontender, no organomegaly. EXTREMITIES: No edema. NEUROLOGIC: Awake and alert, follows simple command. MEDICATIONS: He is on Brovana inhaled twice a day, Claritin 10 mg daily, Colace 100 mg daily, DuoNeb every 6 hours, Ecotrin 81 mg daily, ferrous sulfate 324 mg with meals, Flonase one spray each nostril twice a day p.r.n., Pepcid 20 mg at bedtime, Pulmicort inhaled twice a day, Pyridium 100 mg every 8 hours, Singulair 10 mg at bedtime, Synthroid 112 mcg daily, Ultram 50 mg three times a day p.r.n. LABORATORY DATA: Reviewed. No new lab is available. IMPRESSION AND PLAN: Urinary tract infection, bladder outlet obstruction, requiring straight cath, history of prostate cancer with metastatic disease to the bone, chronic obstructive lung disease, cardiomyopathy, anemia, hypertension, seasonal allergies, sleep apnea syndrome. Continue antibiotics as per Infectious Disease. Bronchodilator. Keep head at 45 degrees. CPAP use. Gastric prophylaxis, Deep venous thrombosis prophylaxis. Follow up labs in the morning. Thank you and we will follow with you. Christy Bartlett MD
[2017-11-22] MEDS: Albuterol-Ipratrop 3 mg / 0.5 (3 ml) UD IH SCH ×3 (02:28→13:07)
--- NOTE | 2017-11-22 02:31 | PN ---
DATE: 11/21/2017 SUBJECTIVE: The patient is 82-year-old male. The patient was seen and examined on the bedside on 11/21/2017, looking comfortable. No nausea, vomiting or diarrhea. No hematuria or hematochezia. No swelling of the legs. No chest pain, no palpitation. No headache, no dizziness. PHYSICAL EXAMINATION VITAL SIGNS: Temperature 98.5, pulse is 72, blood pressure 120/79, respiratory rate 18. HEENT: Head: Normocephalic, atraumatic. Eyes: PERRLA. Extraocular muscles intact. Conjunctivae clear. Nose patent. Mucous membrane moist. NECK: Supple. No carotid bruits. No JVD or thyromegaly. CHEST: Bilaterally symmetrical. HEART: S1 and S2 positive. LUNGS: Clear to auscultation, ABDOMEN: Soft. Bowel sounds positive. No organomegaly. EXTREMITIES: No edema. No cyanosis. NEUROLOGIC: The patient is awake and alert. Moving all four extremities. No focal deficits. MEDICATIONS: Brovana, Claritin, Colace, DuoNeb, Ecotrin, Feosol, Flonase, Pepcid, Pulmicort, Pyridium, Singulair, tramadol. LABORATORY DATA: We do not have recent labs today, but I reviewed old labs. ASSESSMENT AND PLAN: Mr. Sam Pantoja is 82-year-old male with chronic obstructive pulmonary disease, obstructive sleep apnea syndrome, urinary tract infection, bladder outlet obstruction, requiring catheterization, history of prostate cancer with metastasis to the bones and lungs, urinary tract infection with resistant organism, chronic cardiomyopathy, anemia, hypertension, SEASONAL ALLERGIES, history of self catheterization. pressure while sleeping. Antibiotics as per Infectious Disease. I think today is the last day of antibiotics. Out of bed, physical therapy. After antibiotics we will remove the intravenous line. Appreciated Dr. Bartlett's and Dr. Kenrick Pascal's input. We will follow up. Megan Sheth MD MTDD
[2017-11-22] MEDS: Levothyroxine 112 MCG TAB PO SCH (05:42)
[2017-11-22] MEDS: Arformoterol 15 mcg/2 ml Inh Sol IH SCH (07:12)
[2017-11-22] MEDS: Budesonide 0.5 mg/2 ml Inhal Susp UD IH SCH (07:12)
[2017-11-22] MEDS: ENZALUTAMIDE 40 MG PO SCH (09:13)
--- NOTE | 2017-11-22 22:27 | PN ---
DATE: 11/22/2017 SUBJECTIVE: Patient was seen earlier this morning. No fevers. No chills. No nausea. No vomiting. PHYSICAL EXAMINATION: VITAL SIGNS: Temperature 98, blood pressure is 120/70, respiratory rate of 16. HEENT: Unremarkable. NECK: Supple. LUNGS: Have decreased breath sounds. HEART: Normal S1 and S2. ABDOMEN: Soft. LABORATORY EXAMINATION: As noted, reviewed. ASSESSMENT AND PLAN: This is an 82-year-old male with urinary tract infection, Pseudomonas who does do self catheterization associated with hydroureter, on continuous meropenem therapy over 10 days, off of antibiotics, possible discharge today. Juan Maldonado MD
== END 2017-11-22 14:03 | disposition home or self-care (01) | DRG 690 ==
LOC: TRCU 15:17
PROVIDERS: ADMIT Internal Medicine; ATTEND Internal Medicine
PROC: 5A09557 Assistance with Respiratory Ventilation, Greater than 96 Consecutive Hours, Continuous Positive Airway Pressure (ICD-10-PCS; 2017-11-14)
PROC: 3E0F7GC Introduction of Other Therapeutic Substance into Respiratory Tract, Via Natural or Artificial Opening (ICD-10-PCS; 2017-11-14)
PROC: F07Z9FZ Gait Training/Functional Ambulation Treatment using Assistive, Adaptive, Supportive or Protective Equipment (ICD-10-PCS; principal; 2017-11-15)
PROC: F08Z4FZ Home Management Treatment using Assistive, Adaptive, Supportive or Protective Equipment (ICD-10-PCS; 2017-11-15)
DX: N13.6 Pyonephrosis (principal); C78.00 Secondary malignant neoplasm of unspecified lung; C79.51 Secondary malignant neoplasm of bone; I42.9 Cardiomyopathy, unspecified; Z79.2 Long term (current) use of antibiotics; D64.9 Anemia, unspecified; E11.9 Type 2 diabetes mellitus without complications; E78.00 Pure hypercholesterolemia, unspecified; F41.9 Anxiety disorder, unspecified; G47.33 Obstructive sleep apnea (adult) (pediatric); I10 Essential (primary) hypertension; J44.9 Chronic obstructive pulmonary disease, unspecified; E03.9 Hypothyroidism, unspecified; N32.0 Bladder-neck obstruction; J30.2 Other seasonal allergic rhinitis; Z16.24 Resistance to multiple antibiotics; Z85.46 Personal history of malignant neoplasm of prostate; Z87.891 Personal history of nicotine dependence; Z91.19 Patient's noncompliance with other medical treatment and regimen

== ENCOUNTER 2018-03-24 15:03 | Emergency (ER) | payer MEDICARE, MEDICAID ==
[2018-03-24 15:03] VITALS: BMI 34.2
--- NOTE | 2018-03-24 15:25 | ED PDOC ---
Arrival/HPI - General Chief Complaint: Shortness Of Breath Time Seen by Provider: 03/24/18 15:13 Historian: Patient - History of Present Illness Narrative History of Present Illness (Text): 03/24/18 15:26 A 82 year old male, whose past medical history includes hypertension, vertigo, diabetes type 2, COPD and prostate CA, presents to the emergency department complaining of near-syncope for the past week. Patient reports also experiencing cough with white phlegm for nearly 1 month, headache, and weakness. Also, patient states he has chest tightness rather than pain. Has recently had high blood pressure, however patient explains only happens when feeling anxious, especially with his health. Patient denies any chest pain, bilateral leg swelling, or any other complaints at this time. PMD: Dr. Sheth Past Medical History - Provider Review Nursing Documentation Reviewed: Yes - Past History Past History: No Previous - Infectious Disease Hx of Infectious Diseases: None - Tetanus Immunization Tetanus Immunization: Unknown - Cardiac Hx Cardiac Disorders: Yes Hx Hypertension: Yes - Pulmonary Hx Chronic Obstructive Pulmonary Disease (COPD): Yes - Neurological Hx Neurological Disorder: Yes Hx Dizziness: Yes (VERTIGO) - HEENT Hx HEENT Disorder: Yes (eyeglasses) Hx Cataracts: Yes Hx Glaucoma: Yes - Renal Hx Renal Disorder: No - Endocrine/Metabolic Hx Diabetes Mellitus Type 2: Yes Hx Hypothyroidism: Yes - Hematological/Oncological Hx Blood Disorders: Yes Hx Anemia: Yes Hx Cancer: Yes (PROSTATE-takes Zytiga) - Integumentary Hx Dermatological Disorder: No - Musculoskeletal/Rheumatological Hx Arthritis: Yes - Gastrointestinal Hx Gastrointestinal Disorders: No - Genitourinary/Gynecological Hx Genitourinary Disorders: Yes (SELF CATHETERIZATION) Hx Reproductive Disorders: Yes (PROSTATE CA ON CHEMO PILLS) - Psychiatric Hx Psychophysiologic Disorder: Yes Hx Anxiety: Yes Hx Substance Use: No - Anesthesia Hx Anesthesia: Yes Hx Anesthesia Reactions: No Hx Malignant Hyperthermia: No Family/Social History - Physician Review Nursing Documentation Reviewed: Yes Family/Social History: No Known Family HX Smoking Status: Former Smoker Hx Alcohol Use: Yes (social) Hx Substance Use: No Hx Substance Use Treatment: No Allergies/Home Meds Allergies/Adverse Reactions: Allergies No Known Allergies Allergy (Verified 10/18/17 09:25) Home Medications: Home Meds Medication Instructions Recorded Confirmed Fluticasone Nasal [Flonase] 2 spr NS BID PRN 03/18/17 11/14/17 Latanoprost 0.005% Opht [Xalatan 1 drp OU HS 03/18/17 11/14/17 Opht] Levothyroxine [Synthroid] 112 mcg PO DAILY 03/18/17 11/14/17 Aspirin [Ecotrin] 81 mg PO DAILY 06/17/17 11/14/17 Docusate [Colace] 100 mg PO DAILY 06/17/17 11/14/17 Enzalutamide [Xtandi] 160 mg PO DAILY 08/13/17 11/14/17 Review of Systems - Physician Review All systems were reviewed & negative as marked: Yes - Review of Systems Constitutional: Other (weakness) Respiratory: Cough, Sputum (white) Cardiovascular: absent: Chest Pain (chest tightness), Syncope (near-syncope) Musculoskeletal: absent: Other (no bilatearl leg swelling) Physical Exam - Physical Exam Narrative Physical Exam (Text): Gen: VS reviewed, alert, well developed, well nourished, nontoxic, mild distress. ENT: normal pharynx. post-nasal drip. Eye: EOMI, PERRL. Neck: no JVD, supple, no adenopathy. CV: regular rate, regular rhythm, no rubs, no murmur, no gallops, S1, S2, pulses equal and strong. Pulm: no distress, clear to auscultation, no wheeze, no rhonchi, breath sounds equal, no rales. Abd: soft, nontender, no guarding, no rebound, no rigidity, normal bowel sounds. Ext: no edema. Skin: good color, no rash, no cyanosis. Psych: responds appropriately to questions, normal affect. Neuro: oriented x 3, CN2-12 intact grossly, motor intact, sensation intact. Medical Decision Making ED Course and Treatment: 03/24/18 15:28 Impression: 82 year old male with near-syncope sensation, chest tightness, headache, and cough with white phlegm. Plan: -- Venous Blood Gas -- Labs -- Reassess and disposition Progress Notes: 03/24/18 17:24 patient seen for cough and postnasal drip, normal lung exam, clinical presentation consistent with mild uri, no copd exacerbation, stable for discharge. very short course of sudafed for postnasal drip trial. - RAD Interpretation Narrative RAD Interpretations (Text): 03/24/18 17:11 cxr my read: no focal infuiltrate, no ptx, no wide mediastinum Collar Trimmer: ED Physician - Scribe Statement The provider has reviewed the documentation as recorded by the Latisha Trivedi Provider Scribe Attestation: All medical record entries made by the Scribe were at my direction and persona lly dictated by me. I have reviewed the chart and agree that the record accurately reflects my personal performance of the history, physical exam, medical decision making, and the department course for this patient. I have also personally directed, reviewed, and agree with the discharge instructions and disposition. Disposition/Present on Arrival - Present on Arrival Any Indicators Present on Arrival: No History of DVT/PE: No History of Uncontrolled Diabetes: No Urinary Catheter: No History of Decub. Ulcer: No History Surgical Site Infection Following: None - Disposition Have Diagnosis and Disposition been Completed?: Yes Diagnosis: Postnasal drip Disposition: HOME/ ROUTINE Disposition Time: 17:26 Patient Plan: Discharge Condition: STABLE Discharge Instructions (ExitCare): Cough, Runny Nose, and the Common Cold (DC) Prescriptions: Pseudoephedrine [Sudafed Tab] 30 mg PO QID 2 Days #8 tab Forms: [employer] (Faroese)
[2018-03-24 15:29] VITALS: PULSE 87
[2018-03-24 16:12] LABS: VENOUS BLOOD GAS BASE EXCESS 1.4 mmol/L (0.0-2.0); VENOUS BLOOD GAS PO2 38 mm/Hg (30-55); VENOUS BLOOD PH 7.34 (7.32-7.43)
[2018-03-24 16:13] LABS: BASO # 0.01 K/mm3 (0.0-2.0); BASO % 0.2 % (0.0-3.0); EOS # 0.1 (0.0-0.7); EOS % 2.5 % (1.5-5.0); HEMOGLOBIN 12.7 g/dL (14.0-18.0); LYMPH # 1.8 (1.2-3.4); LYMPH % 34.4 % (22.0-35.0); MEAN CELL VOLUME 89.3 fl (80.0-105.0); MEAN CORPUSCULAR HGB CONC 32.5 g/dl (31.0-37.0); MEAN PLATELET VOLUME 11.4 fl (7.0-11.0); MONO # 0.5 (0.1-0.6); MONO % 9.7 % (1.0-6.0); RBC 4.38 10^6/uL (3.5-6.1); RED CELL DISTRIBUTION WIDTH 14.2 % (11.5-14.5); WHITE BLOOD COUNT 5.2 10^3/uL (4.5-11.0)
[2018-03-24 16:18] LABS: INR 1.12; PARTIAL THROMBOPLASTIN TIME 37.2 Seconds (26.9-38.3); PROTHROMBIN TIME 12.4 SECONDS (9.4-12.5)
[2018-03-24 16:21] LABS: ALB/GLOB RATIO 1.2 (1.1-1.8); ALBUMIN 4.3 g/dL (3.0-4.8); ALT/SGPT 10 U/L (7-56); AST/SGOT 21 U/L (17-59); BLOOD UREA NITROGEN 12 mg/dL (7-21); CALCIUM 9.6 mg/dL (8.4-10.5); GFR NON-AFRICAN AMERICAN > 60
[2018-03-24 16:33] LABS: B-TYPE NATRIURETIC PEPTIDE 128 pg/mL (0-450); TROPONIN I < 0.01 ng/mL
[2018-03-24 18:16] VITALS: BP 131/72; RESP 20; TEMP 98; O2SAT 98
--- NOTE | 2018-03-25 11:16 | CARD ---
APPROVED REPORT Date of service: 03/24/2018 EKG Measurement Heart [id number] <Conclusion> NSR Left axis deviation Nonspecific T wave abnormality Abnormal ECG
--- NOTE | 2018-03-25 13:40 | RAD ---
Date of service: 03/24/2018 HISTORY: cough, pneumonia COMPARISON: Comparison made with chest radiograph 11/10/[address] chest dated 06/17/2017. TECHNIQUE: Chest PA and lateral FINDINGS: LUNGS: Emphysematous changes with biapical and upper lobe bullous changes right greater than left. Mild bibasilar atelectasis-scarring.. PLEURA: No significant pleural effusion identified. No pneumothorax apparent. CARDIOVASCULAR: No aortic atherosclerotic calcification present. Normal cardiac size. No pulmonary vascular congestion. OSSEOUS STRUCTURES: Diffuse sclerotic bone metastases less well seen on this study as compared to high-resolution CT VISUALIZED UPPER ABDOMEN: Normal. OTHER FINDINGS: None. IMPRESSION: Emphysematous changes with biapical and upper lobe bullous changes right greater than left. Mild bibasilar atelectasis-scarring.. Diffuse sclerotic bone metastases
== END 2018-03-24 18:16 | disposition home or self-care (01) ==
LOC: ED 15:03
DX: R09.82 Postnasal drip (principal); E11.9 Type 2 diabetes mellitus without complications; I10 Essential (primary) hypertension; Z85.46 Personal history of malignant neoplasm of prostate; J44.9 Chronic obstructive pulmonary disease, unspecified; E03.9 Hypothyroidism, unspecified; Z87.891 Personal history of nicotine dependence

== ENCOUNTER 2018-04-10 19:42 | Inpatient (IN) | payer MEDICARE, MEDICAID ==
[2018-04-10] MEDS ORDERED: Albuterol-Ipratrop 3 mg / 0.5 (3 ml) UD IH STA ×2 (20:05→20:06)
[2018-04-10 20:12] VITALS: BMI 29.0
--- NOTE | 2018-04-10 20:23 | ED PDOC ---
Arrival/HPI - General Chief Complaint: Cough, Cold, Congestion Time Seen by Provider: 04/10/18 19:52 - History of Present Illness Narrative History of Present Illness (Text): 04/10/18 20:19 82 yo male, hx of copd, prostate ca with mets, htn, presetns with cough, generalized weakness, sore throat x 1 month. states seen in er, and dc home. states mild chest tightness with cough. no fevers, no other compalitns. no leg swelling, pt poor historian. no bradshaw no other complaints. 04/10/18 20:20 04/10/18 20:24 Past Medical History - Past History Past History: No Previous - Infectious Disease Hx of Infectious Diseases: None - Tetanus Immunization Tetanus Immunization: Unknown - Cardiac Hx Cardiac Disorders: Yes Hx Hypertension: Yes - Pulmonary Hx Chronic Obstructive Pulmonary Disease (COPD): Yes - Neurological Hx Neurological Disorder: Yes Hx Dizziness: Yes (VERTIGO) - HEENT Hx HEENT Disorder: Yes (eyeglasses) Hx Cataracts: Yes Hx Glaucoma: Yes - Renal Hx Renal Disorder: No - Endocrine/Metabolic Hx Diabetes Mellitus Type 2: Yes Hx Hypothyroidism: Yes - Hematological/Oncological Hx Blood Disorders: Yes Hx Anemia: Yes Hx Cancer: Yes (PROSTATE-takes Zytiga) - Integumentary Hx Dermatological Disorder: No - Musculoskeletal/Rheumatological Hx Arthritis: Yes - Gastrointestinal Hx Gastrointestinal Disorders: No - Genitourinary/Gynecological Hx Genitourinary Disorders: Yes (SELF CATHETERIZATION) Hx Reproductive Disorders: Yes (PROSTATE CA ON CHEMO PILLS) - Psychiatric Hx Psychophysiologic Disorder: Yes Hx Anxiety: Yes Hx Substance Use: No - Anesthesia Hx Anesthesia: Yes Hx Anesthesia Reactions: No Hx Malignant Hyperthermia: No Family/Social History Family/Social History: Unknown Family HX Smoking Status: Former Smoker Hx Alcohol Use: Yes (social) Hx Substance Use: No Hx Substance Use Treatment: No Allergies/Home Meds Allergies/Adverse Reactions: Allergies No Known Allergies Allergy (Verified 10/18/17 09:25) Home Medications: Home Meds Medication Instructions Recorded Confirmed RX: Fluticasone Nasal [Flonase] 2 spr NS BID PRN 03/18/17 04/13/18 RX: Latanoprost 0.005% Opht 1 drp OU HS 03/18/17 04/13/18 [Xalatan Opht] RX: Levothyroxine [Synthroid] 112 mcg PO DAILY 03/18/17 04/13/18 RX: Aspirin [Ecotrin] 81 mg PO DAILY 06/17/17 04/13/18 RX: Docusate [Colace] 100 mg PO DAILY 06/17/17 04/13/18 RX: Enzalutamide [Xtandi] 160 mg PO DAILY 08/13/17 04/13/18 Physical Exam Temperature: Afebrile Blood Pressure: Normal Pulse: Regular Respiratory Rate: Normal Appearance: Positive for: Well-Appearing, Non-Toxic, Comfortable Pain Distress: None Mental Status: Positive for: Alert and Oriented X 3 - Systems Exam Head: Present: Atraumatic, Normocephalic Pupils: Present: PERRL Extroacular Muscles: Present: EOMI Conjunctiva: Present: Normal Mouth: Present: Moist Mucous Membranes Neck: Present: Normal Range of Motion Respiratory/Chest: Present: Good Air Exchange, Wheezes (b/l scattered). No: Respiratory Distress, Accessory Muscle Use Cardiovascular: Present: Regular Rate and Rhythm, Normal S1, S2. No: Murmurs Abdomen: No: Tenderness, Distention, Peritoneal Signs Back: Present: Normal Inspection Upper Extremity: Present: Normal Inspection. No: Cyanosis, Edema Lower Extremity: Present: Normal Inspection. No: Edema Neurological: Present: GCS=15, CN II-XII Intact, Speech Normal Skin: Present: Warm, Dry, Normal Color. No: Rashes Psychiatric: Present: Alert, Oriented x 3, Normal Insight, Normal Concentration Medical Decision Making ED Course and Treatment: 04/15/18 07:56 ro copd pna - labs imaging pending labs neg. cxr no actue disease as read by me. pt lives by himself. discussed with pmd accpets for obs. - RAD Interpretation Radiology Orders: 04/10/18 20:05 CHEST PORTABLE [RAD] Stat - Medication Orders Current Medication Orders: Discontinued Medications Albuterol/Ipratropium (Duoneb 3 Mg/0.5 Mg (3 Ml) Ud) 3 ml IH STAT STA Stop: 04/10/18 20:06 Albuterol/Ipratropium (Duoneb 3 Mg/0.5 Mg (3 Ml) Ud) 3 ml IH STAT STA Stop: 04/10/18 20:07 Methylprednisolone (Solu-Medrol) 125 mg IVP STAT STA Stop: 04/10/18 20:06 Disposition/Present on Arrival - Present on Arrival Any Indicators Present on Arrival: No History of DVT/PE: No History of Uncontrolled Diabetes: No Urinary Catheter: No History of Decub. Ulcer: No History Surgical Site Infection Following: None - Disposition Have Diagnosis and Disposition been Completed?: Yes Diagnosis: Chronic obstructive lung disease Disposition: HOSPITALIZED Disposition Time: 14:00 Condition: STABLE
[2018-04-10 20:38] LABS: BASO # 0.01 K/mm3 (0.0-2.0); BASO % 0.2 % (0.0-3.0); EOS # 0.1 (0.0-0.7); EOS % 2.7 % (1.5-5.0); HEMOGLOBIN 11.9 g/dL (14.0-18.0); LYMPH # 1.9 (1.2-3.4); LYMPH % 40.7 % (22.0-35.0); MEAN CELL VOLUME 88.8 fl (80.0-105.0); MEAN CORPUSCULAR HEMOGLOBIN 28.5 pg (25.0-35.0); MEAN CORPUSCULAR HGB CONC 32.1 g/dl (31.0-37.0); MEAN PLATELET VOLUME 12.4 fl (7.0-11.0); MONO # 0.3 (0.1-0.6); MONO % 6.3 % (1.0-6.0); RBC 4.18 10^6/uL (3.5-6.1); WHITE BLOOD COUNT 4.7 10^3/uL (4.5-11.0)
[2018-04-10 20:44] LABS: INR 1.14; PARTIAL THROMBOPLASTIN TIME 43.7 Seconds (26.9-38.3); PROTHROMBIN TIME 12.7 SECONDS (9.4-12.5)
[2018-04-10 20:58] LABS: B-TYPE NATRIURETIC PEPTIDE 151 pg/mL (0-450); TROPONIN I < 0.01 ng/mL
[2018-04-10 20:59] LABS: ALB/GLOB RATIO 1.2 (1.1-1.8); ALBUMIN 3.9 g/dL (3.0-4.8); ALT/SGPT < 6 U/L (7-56); AST/SGOT 26 U/L (17-59); BLOOD UREA NITROGEN 11 mg/dL (7-21); CALCIUM 9.8 mg/dL (8.4-10.5); GFR NON-AFRICAN AMERICAN > 60
[2018-04-11] MEDS ORDERED: CATHETER MC PRN (00:35)
[2018-04-11] MEDS: Albuterol-Ipratrop 3 mg / 0.5 (3 ml) UD IH SCH ×4 (01:09→19:20)
--- NOTE | 2018-04-11 03:12 | HP ---
DATE OF EXAM: 04/10/2018 CHIEF COMPLAINT: Cough, cold, and congestion. HISTORY OF PRESENT ILLNESS: The patient was seen and examined at the bedside on 04/10/2018. Mr. Sam Pantoja is an 82-year-old male with past medical history of COPD, prostate cancer with metastases, hypertension, emphysema, obstructive sleep apnea syndrome, came with cough, generalized weakness, and sore throat. Patient is seen in ER and discharged home. States mild chest tightness with coughing. No fever. No hematuria. No hematochezia. No headache. No dizziness. No swelling of the legs. Patient is a poor historian. Actually, patient is a . PAST MEDICAL HISTORY: As above, hypertension, COPD, vertigo, cataract, glaucoma, diabetes mellitus type 2, hypothyroidism, history of prostate cancer, history of urinary problem, he is doing self catheterization. FAMILY HISTORY: Father and mother noncontributory. HABITS: Former smoker, no. Alcohol, yes socially. Substance abuse, no. ALLERGIES: PATIENT IS NOT ALLERGIC TO ANY MEDICATIONS. HOME MEDICATIONS: Fluticasone, levothyroxine, aspirin, Colace. REVIEW OF SYSTEMS: Patient was seen and examined at the bedside in the emergency room looking comfortable, coughing with shortness of breath, congestion. No headache. No dizziness. No fever. No chills. No hematuria. No hematochezia. PHYSICAL EXAMINATION VITAL SIGNS: Temperature 98.6, pulse 78, blood pressure 142/75, respiratory rate 18. HEENT: Head; normocephalic, atraumatic. Eyes; PERRLA. Extraocular muscles intact. Conjunctivae clear. Nose patent. Mucous membrane moist. NECK: Supple. No carotid bruit. No JVD or thyromegaly. CHEST: Bilateral symmetrical. HEART: S1 and S2 positive. LUNGS: Clear to auscultation. ABDOMEN: Soft. Bowel sounds positive. No organomegaly. EXTREMITIES: No edema. No cyanosis. NEUROLOGIC: Patient is awake, alert, follows simple commands. LABORATORY DATA: White blood cell 4.7, hemoglobin 11.9, hematocrit 37.1, and platelets 177. Sodium 139, potassium 4.2, BUN 11, creatinine 1. Glucose 108. Alkaline phosphatase 552. ASSESSMENT AND PLAN: Mr. Sam Pantoja is an 82-year-old male with anemia. Influenza type A and B is negative. Came with shortness of breath and congestion. Chest x-ray done, results are not ready. Patient has history of prostate cancer with metastases, chronic obstructive pulmonary disease, emphysema, vertigo, cataract, glaucoma, diabetes type 2, hypothyroidism, urinary problem doing self catheterization. We admitted the patient. Discussion done with emergency room physician. Albuterol given and Solu-Medrol given. Took pulmonary consult with Dr. Bartlett. He knows this patient very well. Gastrointestinal and deep venous thrombosis prophylaxis. Repeat labs. We will follow up. Megan Sheth MD MTDD
[2018-04-11] MEDS: Levothyroxine 112 MCG TAB PO SCH (06:36)
[2018-04-11] MEDS: Arformoterol 15 mcg/2 ml Inh Sol IH SCH ×2 (07:43→19:20)
[2018-04-11] MEDS: Budesonide 0.5 mg/2 ml Inhal Susp UD IH SCH ×2 (07:43→19:30)
[2018-04-11] MEDS ORDERED: Arformoterol 15 mcg/2 ml Inh Sol IH SCH (08:00)
--- NOTE | 2018-04-11 09:33 | RAD ---
Date of service: 04/10/2018 HISTORY: cough COMPARISON: 03/24/2018 FINDINGS: LUNGS: Severe emphysema can be seen in the right upper lobe. Large bulla are seen. PLEURA: No significant pleural effusion identified, no pneumothorax apparent. CARDIOVASCULAR: No aortic atherosclerotic calcification present. Normal cardiac size. No pulmonary vascular congestion. OSSEOUS STRUCTURES: No significant abnormalities. VISUALIZED UPPER ABDOMEN: Normal. OTHER FINDINGS: None. IMPRESSION: Large bulla in the right upper lobe consistent with severe emphysema. No acute findings
[2018-04-11] MEDS: ENZALUTAMIDE 160 MG PO SCH (10:50)
[2018-04-11] MEDS: MethylPREDNISolone 40 mg Vial IVP SCH ×2 (10:51→22:19)
[2018-04-11] MEDS: METHENAMINE HIPPURATE 1 GM PO SCH ×2 (10:51→17:51)
[2018-04-11] MEDS: Azithromycin 500MG/NS 250ml 500 MG/250 ML BAG IVPB SCH (12:25)
--- NOTE | 2018-04-11 13:00 | CP.PCM.APN ---
Subjective - Date & Time of Evaluation Date of Evaluation: 04/11/18 Time of Evaluation: 11:25 - Subjective Subjective: Pt seen & examined at bedside. C/O cough and shortness of breath on exertion. Denies chest pain. Objective - Vital Signs/Intake and Output Vital Signs (last 24 hours): Temp Pulse Resp BP Pulse Ox 98.2 F 69 20 165/82 H 96 04/11/18 08:57 04/11/18 08:57 04/11/18 08:57 04/11/18 08:57 04/11/18 08:57 - Medications Medications: Current Medications Acetaminophen (Tylenol 325mg Tab) 650 mg PO Q4H PRN PRN Reason: Fever >100.4 F Acetaminophen (Tylenol 325mg Tab) 650 mg PO Q4H PRN PRN Reason: Pain, moderate (4-7) Albuterol/Ipratropium (Duoneb 3 Mg/0.5 Mg (3 Ml) Ud) 3 ml [facility] [id number] Last Admin: 04/11/18 07:43 Dose: 3 ml Arformoterol Tartrate (Brovana) 15 mcg IH [id number] Last Admin: 04/11/18 07:43 Dose: 15 mcg Aspirin (Ecotrin) 81 mg PO DAILY [facility] Last Admin: 04/11/18 10:49 Dose: 81 mg Budesonide (Pulmicort Respules) 0.5 mg IH [id number] Last Admin: 04/11/18 07:43 Dose: 0.5 mg Docusate Sodium (Colace) 100 mg PO DAILY [facility] Last Admin: 04/11/18 10:49 Dose: 100 mg Famotidine (Pepcid) 40 mg PO HS [facility] Ferrous Sulfate (Feosol) 324 mg PO WM [facility] Last Admin: 04/11/18 10:48 Dose: 324 mg Fluticasone Propionate (Flonase) 1 actuation NS BID PRN PRN Reason: Sinus symptoms Azithromycin (Zithromax 500mg In Ns) 500 mg in 250 mls @ 250 mls/hr IVPB DAILY [facility]; Protocol Last Admin: 04/11/18 12:25 Dose: 250 mls/hr Latanoprost (Xalatan Opht) 0 ml OU HS [facility] Levothyroxine Sodium (Synthroid) 112 mcg PO 0600 [facility] Last Admin: 04/11/18 06:36 Dose: 112 mcg Loratadine (Claritin) 10 mg PO DAILY [facility] Last Admin: 04/11/18 10:49 Dose: 10 mg Methylprednisolone (Solu-Medrol) 40 mg IVP Q12 [facility] Last Admin: 04/11/18 10:51 Dose: 40 mg Montelukast Sodium (Singulair) 10 mg PO [facility] Enzalutamide [Xtandi (] 160 Mg (Home Med)) 160 mg PO DAILY [facility] Last Admin: 04/11/18 10:50 Dose: Not Given Methenamine Hippurate [Hiprex] 1 Gm (Home Med) 1 gm PO BID [facility] Last Admin: 04/11/18 10:51 Dose: Not Given - Labs Labs: 04/10/18 20:25 04/10/18 20:25 PT 12.7 SECONDS (9.4-12.5) H 04/10/18 20:25 INR 1.14 04/10/18 20:25 APTT 43.7 Seconds (26.9-38.3) H 04/10/18 20:25 - Constitutional Appears: No Acute Distress - Respiratory Exam Respiratory Exam: Decreased Breath Sounds, Wheezes - Cardiovascular Exam Cardiovascular Exam: REGULAR RHYTHM, +S1, +S2 - GI/Abdominal Exam GI & Abdominal Exam: Soft, Normal Bowel Sounds - Rectal Exam Rectal Exam: Deferred - Neurological Exam Neurological Exam: Alert, Awake, Oriented x3 Assessment and Plan - Assessment and Plan (Free Text) Assessment: Pt is an 82 y.o. male w/ pmhx of hx of copd, prostate ca with mets, htn who presented in ED with cough, generalized weakness, sore throat x 1 month. ITS Impressions Chest X-Ray 04/10/18 20:05 IMPRESSION: Large bulla in the right upper lobe consistent with severe emphysema. No acute findings Plan: On Duoneb/Azithromycin/Solumedrol 40 q12h Pulmonary consult Meds per MAR Will continue to follow
--- NOTE | 2018-04-11 16:12 | CARD ---
APPROVED REPORT Date of service: 04/10/2018 EKG Measurement Heart [id number] <Conclusion> Sinus rhythm with premature atrial complexes Left axis deviation Nonspecific T wave abnormality Abnormal ECG
[2018-04-11] MEDS: Fluticasone Nasal 50 mcg/Spray NS PRN (18:30)
--- NOTE | 2018-04-11 19:54 | PN ---
DATE: 04/11/2018 SUBJECTIVE: The patient was seen and examined at the bedside on 04/11/2018, sitting comfortably, but still coughing, little bit better. Denies chest pain. No hematuria or hematochezia. No swelling of the legs. No headache. No dizziness. PHYSICAL EXAMINATION: VITAL SIGNS: Temperature 98.2, pulse 69, respiratory rate 20, blood pressure 165/82, and pulse oximetry 96%. HEENT: Head; normocephalic and atraumatic. Eyes; PERRLA. Extraocular muscles are intact. Conjunctivae clear. Nose patent. Mucous membranes moist. NECK: Supple. No carotid bruits. No JVD or thyromegaly. CHEST: Bilaterally symmetrical. HEART: S1 and S2 positive. LUNGS: Clear to auscultation. ABDOMEN: Soft. Bowel sounds present. No organomegaly. EXTREMITIES: No edema. No cyanosis. NEUROLOGIC: The patient is awake, alert, and follow simple commands. MEDICATIONS: Tylenol, albuterol, Brovana, Ecotrin, Pulmicort, Pepcid, Feosol, and Zithromax. LABORATORY DATA: White blood cell 12.7, hemoglobin 11.9, hematocrit 37.1, and platelets 177. Sodium 129, potassium 4.2, BUN 11, creatinine 1, and glucose 108. ASSESSMENT AND PLAN: Mr. Sam Pantoja is an 82-year-old male with anemia, history of chronic obstructive pulmonary disease, prostate cancer with metastases to the lungs, and hypertension. X-ray shows large bulla in the right upper lobe consistent with severe emphysema. Network Admin is on the case. Continue on DuoNeb, Zithromax, and Solu-Medrol. Discussion done with the patient. Review nurse practitioner Nico Sneed's notes. Gastrointestinal and deep vein thrombosis prophylaxes. We will follow up. Megan Sheth MD
[2018-04-11] MEDS: Latanoprost 2.5 ml Opht Soln OU SCH (22:21)
--- NOTE | 2018-04-11 23:18 | CON ---
DATE OF CONSULTATION: 04/11/2018 REFERRING PHYSICIAN: Megan Sheth MD REASON FOR CONSULTATION: Chronic obstructive lung disease, hypoventilation syndrome. HISTORY OF PRESENT ILLNESS: This is an 82-year-old gentleman well known to me from previous admission and from the office with multiple medical problems including chronic obstructive lung disease, hypoventilation syndrome, COPD, hypothyroidism, diabetes, metastatic prostate cancer, bladder outlet obstruction, usually does the self catheterization, comes in with rhinitis, cough, shortness of breath, started on antibiotics and steroids, tolerated CPAP well last night. No nausea, no vomiting, and no diarrhea. PAST MEDICAL HISTORY: As per history of present illness. FAMILY HISTORY: No significant cardiopulmonary disease reported. SOCIAL HISTORY: Former smoker. Denies any alcohol use. MEDICATIONS: He is on Brovana 50 mcg inhaled twice a day, Claritin 10 mg daily, Colace 100 mg daily, DuoNeb every 6 hours [id number], Ecotrin 81 mg daily. He is receiving at home chemotherapy, XTANDI 160 mg daily, ferrous sulfate 324 mg with the meals, Flonase one spray each nostril daily, also getting Hiprex, also home medication, Pepcid 40 mg daily, budesonide inhaled twice a day, Singulair 10 mg daily, Solu-Medrol 40 mg twice a day, Synthroid 112 mcg daily, Tylenol p.r.n. basis, eyedrops have been given, Zithromax 500 mg daily. ALLERGIES: NONE KNOWN. REVIEW OF SYSTEMS: No headache, no rhinitis. Has some cough and shortness of breath. No chest pain. No nausea, no vomiting, no diarrhea. He usually does self catheterization for bladder outlet obstruction. No leg swelling. PHYSICAL EXAMINATION: GENERAL: Mild cough and shortness of breath. VITAL SIGNS: Temperature is 98, heart rate 69, respiratory rate is 20, blood pressure 165/82, pulse ox 96% on room air. HEENT: Moist mucous membranes. Crowded airway. Mallampati score is 4. NECK: Supple. No JVD. LUNGS: Have a few crackles at bases. Scattered rhonchi. Prolonged expiratory phase. HEART: S1 and S2. ABDOMEN: Soft, nontender, no organomegaly. EXTREMITIES: No significant edema. NEUROLOGIC: Awake and alert. Follows simple commands. LABORATORY DATA: Hemoglobin 11.9, hematocrit 37.1, WBC 4.7, platelets 177,000. INR 1.14. PTT 44. Sodium 139, potassium 4.2, chloride 105, bicarbonate 28, BUN 11, creatinine 1.0, glucose 111, calcium 9.8, magnesium 2.1, AST 26, ALT less than 0.6, alk phos is 552. LDH is 567. Troponin less than 0.01. ProBNP 151. Albumin is 3.9. Chest x-ray done in the ER shows large bullae in the right upper lobe consistent with severe emphysema, otherwise unremarkable. IMPRESSION AND PLAN: Chronic obstructive lung disease, obesity hypoventilation syndrome, recurrent urinary tract infections, chronic lung disease, stage IV metastatic prostate cancer, cardiomyopathy, anemia, hypertension. Agree with Dr. Sheth with the present management. Continue antibiotics, IV steroids, CPAP while sleeping. Gastric prophylaxis. Home chemotherapy for prostate cancer. SCDs to lower extremities. History of anemia, requiring transfusion in the past. We will not do chemical prophylaxis. Thank you and we will follow with you. Christy Bartlett MD
[2018-04-12] MEDS: Albuterol-Ipratrop 3 mg / 0.5 (3 ml) UD IH SCH ×4 (01:14→19:14)
[2018-04-12] MEDS: Levothyroxine 112 MCG TAB PO SCH (05:30)
[2018-04-12] MEDS: Budesonide 0.5 mg/2 ml Inhal Susp UD IH SCH ×2 (07:14→19:15)
[2018-04-12] MEDS: Arformoterol 15 mcg/2 ml Inh Sol IH SCH ×2 (07:14→19:14)
[2018-04-12 07:27] LABS: HEMOGLOBIN 11.5 g/dL (14.0-18.0); MEAN CELL VOLUME 88.5 fl (80.0-105.0); MEAN CORPUSCULAR HEMOGLOBIN 28.1 pg (25.0-35.0); MEAN CORPUSCULAR HGB CONC 31.8 g/dl (31.0-37.0); MEAN PLATELET VOLUME 12.2 fl (7.0-11.0); RBC 4.09 10^6/uL (3.5-6.1); RED CELL DISTRIBUTION WIDTH 14.3 % (11.5-14.5); WHITE BLOOD COUNT 4.7 10^3/uL (4.5-11.0)
[2018-04-12 07:45] LABS: ALB/GLOB RATIO 1.2 (1.1-1.8); ALBUMIN 4.1 g/dL (3.0-4.8); AST/SGOT 21 U/L (17-59); BLOOD UREA NITROGEN 13 mg/dL (7-21); GFR NON-AFRICAN AMERICAN > 60
[2018-04-12 07:47] LABS: ALT/SGPT < 6 U/L (7-56)
[2018-04-12] MEDS: Azithromycin 500MG/NS 250ml 500 MG/250 ML BAG IVPB SCH (10:31)
[2018-04-12] MEDS: ENZALUTAMIDE 160 MG PO SCH (10:32)
[2018-04-12] MEDS: METHENAMINE HIPPURATE 1 GM PO SCH (10:32)
[2018-04-12] MEDS: MethylPREDNISolone 40 mg Vial IVP SCH ×2 (10:32→21:29)
--- NOTE | 2018-04-12 14:23 | PN ---
DATE: 04/12/2018 PULMONARY PROGRESS NOTE REFERRING PHYSICIAN: Megan Sheth MD SUBJECTIVE: The patient is lying in bed. Reports feeling well today, wear sleep machine last night, still has some cough, shortness of breath improved. No headache, rhinitis, chest pain, abdominal pain, nausea, vomiting, diarrhea, leg pain or leg swelling reported. OBJECTIVE: GENERAL: No acute distress. VITAL SIGNS: Blood pressure 157/84, pulse 67, temperature 97.6, oxygen saturation 95% on nasal cannula. HEENT: Moist mucous membranes. Mallampati score of 4. Crowded airway. NECK: Supple. No JVD. LUNGS: Scattered rhonchi bilaterally, prolonged expiratory phase. CARDIOVASCULAR: S1 and S2. ABDOMEN: Soft and nontender. No distention. No organomegaly. EXTREMITIES: No bilateral lower extremity edema. NEUROLOGIC: Awake, alert, and verbal. Follows commands. MEDICATIONS: Reviewed. Tylenol 650 mg every 4 hours p.r.n. fever greater than 100.4, Tylenol 650 mg every 4 hours p.r.n. moderate pain, DuoNeb 3 mL inhalation every 6 hours, Brovana 15 mcg every 12 hours, aspirin 81 mg p.o. daily, Zithromax 500 mg daily, Pulmicort 0.5 mg every 12 hours, Colace 100 mg daily, Pepcid 40 mg at bedtime, ferrous sulfate 324 mg Monday and Monday, Flonase nasal spray twice a day p.r.n., latanoprost at bedtime, Synthroid 112 mcg daily, Claritin 10 mg daily, Solu-Medrol 40 mg every 12 hours, Singulair 10 mg at bedtime, Xtandi 160 mg daily, Hiprex 1 g twice a day. LABORATORY DATA: Reviewed. WBC 4.7, RBC 4.09, hemoglobin 11.5, hematocrit 36.2, and platelets 177. Sodium 139, potassium 4.6, chloride 105, carbon dioxide 20, anion gap 10, BUN 13, creatinine 0.8, GFR greater than 60, random glucose 138, calcium 10, total bilirubin 0.3, AST 21, ALT less than 6, alkaline phosphatase 557, total protein 7.4, albumin 4.1, globulin 3.3, and albumin-globulin ratio 1.2. EKG shows sinus rhythm, premature atrial complexes. IMPRESSION AND PLAN: Chronic obstructive lung disease, obesity, hypoventilation syndrome, chronic lung disease, recurrent urinary tract infection stage IV, metastatic prostate cancer, cardiomyopathy, anemia, hypertension. Continue antibiotic therapy, steroids, gastric prophylaxis, sequential compression devices to bilateral lower extremities for deep venous thrombosis prophylaxis. The patient has a history of anemia, requiring transfusion in the past, continue continuous positive airway pressure use at bedtime, sleep apnea precaution, head of elevated at 45 degrees. The patient status changed today from observation to inpatient admission. We will order TRCU evaluation. This patient was seen and examined with Dr. Bartlett. Discussed assessment and plan as described above. This patient was seen and examined with Nasim Mccoy, nurse practitioner. Discussed assessment and plan as described above. Thank you for this consult and we will follow with you. Nasim Mccoy APN Christy Bartlett MD YUN
[2018-04-12] MEDS: Latanoprost 2.5 ml Opht Soln OU SCH (21:29)
[2018-04-13] MEDS: Albuterol-Ipratrop 3 mg / 0.5 (3 ml) UD IH SCH ×4 (01:24→20:33)
[2018-04-13] MEDS: Fluticasone Nasal 50 mcg/Spray NS PRN (02:17)
[2018-04-13] MEDS: Levothyroxine 112 MCG TAB PO SCH (05:38)
[2018-04-13] MEDS ORDERED: Fluticasone Nasal 50 mcg/Spray NS STA (06:13)
[2018-04-13] MEDS ORDERED: Alum-Mag Hydrox-Simethicone Susp (30 mL) PO ONE (06:13)
--- NOTE | 2018-04-13 06:19 | CP.PCM.PN ---
<LyndsaybrantGloria marie - Last Filed: 04/13/18 06:15> Subjective - Date & Time of Evaluation Date of Evaluation: 04/13/18 Time of Evaluation: 06:05 - Subjective Subjective: PGY-3 note Paged by nurse to evaluate patient for chest pain: Patient was awaken for the removal of bipap, when patient complained of nasal congestion, and epigastric pain, non radiating, and is reproducible. Pt states he feels like its gas pain. Vitals review and are alll stable PE: no distress, a&ox3, CVA: clear to auscultation kristin, no w,r,r, normal S1-S2 no rales or rhonchi Abdomen: obese, normal bowel sound Plan: R/o ACS stat ekg, trend trops Gave a dose of Maalox ordered flonase Objective - Vital Signs/Intake and Output Vital Signs (last 24 hours): Temp Pulse Resp BP Pulse Ox 98.4 F 70 18 128/70 98 04/12/18 21:47 04/12/18 21:47 04/12/18 21:47 04/12/18 21:47 04/12/18 21:47 Intake and Output: 04/12/18 04/13/18 18:59 06:59 Intake Total 620 Output Total 550 Balance 70 - Medications Medications: Current Medications Acetaminophen (Tylenol 325mg Tab) 650 mg PO Q4H PRN PRN Reason: Fever >100.4 F Acetaminophen (Tylenol 325mg Tab) 650 mg PO Q4H PRN PRN Reason: Pain, moderate (4-7) Al Hydrox/Mg Hydrox/Simethicone (Maalox Plus 30 Ml) 30 ml PO ONCE ONE Stop: 04/13/18 06:14 Albuterol/Ipratropium (Duoneb 3 Mg/0.5 Mg (3 Ml) Ud) 3 ml [id number] [facility] Last Admin: 04/13/18 01:24 Dose: 3 ml Arformoterol Tartrate (Brovana) 15 mcg [facility] [id number] [facility] Last Admin: 04/12/18 19:14 Dose: 15 mcg Aspirin (Ecotrin) 81 mg PO DAILY [facility] Last Admin: 04/12/18 10:31 Dose: 81 mg Azithromycin (Zithromax) 500 mg PO [facility] Budesonide (Pulmicort Respules) 0.5 mg [facility] [id number] [facility] Last Admin: 04/12/18 19:15 Dose: 0.5 mg Docusate Sodium (Colace) 100 mg PO DAILY [facility] Last Admin: 04/12/18 10:31 Dose: 100 mg Famotidine (Pepcid) 40 mg PO HS [facility] Last Admin: 04/12/18 21:29 Dose: 40 mg Ferrous Sulfate (Feosol) 324 mg PO [facility] Last Admin: 04/12/18 17:42 Dose: 324 mg Fluticasone Propionate (Flonase) 1 actuation NS BID PRN PRN Reason: Sinus symptoms Last Admin: 04/13/18 02:17 Dose: 1 spray Fluticasone Propionate (Flonase) 1 actuation NS STAT STA Stop: 04/13/18 06:14 Latanoprost (Xalatan Opht) 0 ml OU [facility] Last Admin: 04/12/18 21:29 Dose: 1 ml Levothyroxine Sodium (Synthroid) 112 mcg PO 0600 [facility] Last Admin: 04/13/18 05:38 Dose: 112 mcg Loratadine (Claritin) 10 mg PO DAILY [facility] Last Admin: 04/12/18 10:31 Dose: 10 mg Methylprednisolone (Solu-Medrol) 40 mg IVP Q12 [facility] Last Admin: 04/12/18 21:29 Dose: 40 mg Montelukast Sodium (Singulair) 10 mg PO HS [facility] Last Admin: 04/12/18 21:29 Dose: 10 mg Enzalutamide [Xtandi (] 160 Mg (Home Med)) 160 mg PO DAILY [facility] Last Admin: 04/12/18 10:32 Dose: Not Given Methenamine Hippurate [Hiprex] 1 Gm (Home Med) 1 gm PO BID [facility] Last Admin: 04/12/18 10:32 Dose: Not Given - Labs Labs: 04/12/18 07:00 04/12/18 07:00 PT 12.7 SECONDS (9.4-12.5) H 04/10/18 20:25 INR 1.14 04/10/18 20:25 APTT 43.7 Seconds (26.9-38.3) H 04/10/18 20:25 <Irene Armstrong - Last Filed: 04/13/18 19:23> Objective - Vital Signs/Intake and Output Vital Signs (last 24 hours): Temp Pulse Resp BP Pulse Ox 98.6 F 81 20 132/75 91 L 04/13/18 14:00 04/13/18 14:00 04/13/18 14:00 04/13/18 14:00 04/13/18 14:00 Intake and Output: 04/13/18 04/14/18 18:59 06:59 Intake Total 780 Balance 780 - Medications Medications: Current Medications Acetaminophen (Tylenol 325mg Tab) 650 mg PO Q4H PRN PRN Reason: Fever >100.4 F Acetaminophen (Tylenol 325mg Tab) 650 mg PO Q4H PRN PRN Reason: Pain, moderate (4-7) Albuterol/Ipratropium (Duoneb 3 Mg/0.5 Mg (3 Ml) Ud) 3 ml [facility] [id number] [facility] Last Admin: 04/13/18 13:03 Dose: 3 ml Arformoterol Tartrate (Brovana) 15 mcg I[facility] [id number] [facility] Last Admin: 04/13/18 07:17 Dose: 15 mcg Aspirin (Ecotrin) 81 mg PO DAILY [facility] Last Admin: 04/13/18 09:44 Dose: 81 mg Azithromycin (Zithromax) 500 mg PO DAILY [facility] Last Admin: 04/13/18 09:44 Dose: 500 mg Budesonide (Pulmicort Respules) 0.5 mg IH [id number] [facility] Last Admin: 04/13/18 07:18 Dose: 0.5 mg Docusate Sodium (Colace) 100 mg PO DAILY [facility] Last Admin: 04/13/18 09:45 Dose: 100 mg Famotidine (Pepcid) 40 mg PO HS [facility] Last Admin: 04/12/18 21:29 Dose: 40 mg Ferrous Sulfate (Feosol) 324 mg PO [facility] Last Admin: 04/13/18 17:20 Dose: 324 mg Fluticasone Propionate (Flonase) 1 actuation NS BID PRN PRN Reason: Sinus symptoms Last Admin: 04/13/18 02:17 Dose: 1 spray Latanoprost (Xalatan Opht) 0 ml OU HS [facility] Last Admin: 04/12/18 21:29 Dose: 1 ml Levothyroxine Sodium (Synthroid) 112 mcg PO 0600 [facility] Last Admin: 04/13/18 05:38 Dose: 112 mcg Loratadine (Claritin) 10 mg PO DAILY [facility] Last Admin: 04/13/18 09:44 Dose: 10 mg Methylprednisolone (Solu-Medrol) 40 mg IVP Q12 [facility] Last Admin: 04/13/18 09:44 Dose: 40 mg Montelukast Sodium (Singulair) 10 mg PO HS [facility] Last Admin: 04/12/18 21:29 Dose: 10 mg Enzalutamide [Xtandi (] 160 Mg (Home Med)) 160 mg PO DAILY [facility] Last Admin: 04/13/18 09:45 Dose: Not Given Methenamine Hippurate [Hiprex] 1 Gm (Home Med) 1 gm PO BID [facility] Last Admin: 04/13/18 16:24 Dose: Not Given - Labs Labs: 04/12/18 07:00 04/12/18 07:00 PT 12.7 SECONDS (9.4-12.5) H 04/10/18 20:25 INR 1.14 04/10/18 20:25 APTT 43.7 Seconds (26.9-38.3) H 04/10/18 20:25 Attending/Attestation - Attestation I have personally seen and examined this patient.: No I have fully participated in the care of the patient.: No I have reviewed all pertinent clinical information, including history, physical exam and plan: No
[2018-04-13] MEDS: Arformoterol 15 mcg/2 ml Inh Sol IH SCH ×2 (07:17→20:33)
[2018-04-13] MEDS: Budesonide 0.5 mg/2 ml Inhal Susp UD IH SCH ×2 (07:18→20:33)
--- NOTE | 2018-04-13 09:16 | CARD ---
APPROVED REPORT Date of service: 04/13/2018 EKG Measurement Heart [id number] CT [id number] [id number] <Conclusion> Sinus rhythm with premature atrial complexes Left axis deviation Minimal voltage criteria for LVH, may be normal variant Nonspecific ST and T wave abnormality Abnormal ECG
[2018-04-13] MEDS: MethylPREDNISolone 40 mg Vial IVP SCH ×2 (09:44→21:24)
[2018-04-13] MEDS: ENZALUTAMIDE 160 MG PO SCH (09:45)
--- NOTE | 2018-04-13 12:06 | CP.PCM.APN ---
Subjective - Date & Time of Evaluation Date of Evaluation: 04/13/18 Time of Evaluation: 08:30 - Subjective Subjective: Pt seen and examined at bedside. Still c/o cough and shortness of breath on exertion. Denies chest pain. However, early this morning pt c/o chest pain. Trops negative. EKG NSR. Objective - Vital Signs/Intake and Output Vital Signs (last 24 hours): Temp Pulse Resp BP Pulse Ox 97.6 F 67 16 142/83 94 L 04/13/18 08:19 04/13/18 08:19 04/13/18 08:19 04/13/18 08:19 04/13/18 08:19 Intake and Output: 04/13/18 04/13/18 06:59 18:59 Intake Total 620 Output Total 550 Balance 70 - Medications Medications: Current Medications Acetaminophen (Tylenol 325mg Tab) 650 mg PO Q4H PRN PRN Reason: Fever >100.4 F Acetaminophen (Tylenol 325mg Tab) 650 mg PO Q4H PRN PRN Reason: Pain, moderate (4-7) Albuterol/Ipratropium (Duoneb 3 Mg/0.5 Mg (3 Ml) Ud) 3 ml IH [id number] [facility] Last Admin: 04/13/18 07:17 Dose: 3 ml Arformoterol Tartrate (Brovana) 15 mcg IH [id number] [facility] Last Admin: 04/13/18 07:17 Dose: 15 mcg Aspirin (Ecotrin) 81 mg PO DAILY [facility] Last Admin: 04/13/18 09:44 Dose: 81 mg Azithromycin (Zithromax) 500 mg PO DAILY [facility] Last Admin: 04/13/18 09:44 Dose: 500 mg Budesonide (Pulmicort Respules) 0.5 mg IH [id number] [facility] Last Admin: 04/13/18 07:18 Dose: 0.5 mg Docusate Sodium (Colace) 100 mg PO DAILY [facility] Last Admin: 04/13/18 09:45 Dose: 100 mg Famotidine (Pepcid) 40 mg PO HS [facility] Last Admin: 04/12/18 21:29 Dose: 40 mg Ferrous Sulfate (Feosol) 324 mg PO WM [facility] Last Admin: 04/13/18 09:44 Dose: 324 mg Fluticasone Propionate (Flonase) 1 actuation NS BID PRN PRN Reason: Sinus symptoms Last Admin: 04/13/18 02:17 Dose: 1 spray Latanoprost (Xalatan Opht) 0 ml OU HS [facility] Last Admin: 04/12/18 21:29 Dose: 1 ml Levothyroxine Sodium (Synthroid) 112 mcg PO 0600 [facility] Last Admin: 04/13/18 05:38 Dose: 112 mcg Loratadine (Claritin) 10 mg PO DAILY [facility] Last Admin: 04/13/18 09:44 Dose: 10 mg Methylprednisolone (Solu-Medrol) 40 mg IVP Q12 [facility] Last Admin: 04/13/18 09:44 Dose: 40 mg Montelukast Sodium (Singulair) 10 mg PO HS [facility] Last Admin: 04/12/18 21:29 Dose: 10 mg Enzalutamide [Xtandi (] 160 Mg (Home Med)) 160 mg PO DAILY [facility] Last Admin: 04/13/18 09:45 Dose: Not Given Methenamine Hippurate [Hiprex] 1 Gm (Home Med) 1 gm PO BID [facility] Last Admin: 04/12/18 10:32 Dose: Not Given - Labs Labs: 04/12/18 07:00 04/12/18 07:00 PT 12.7 SECONDS (9.4-12.5) H 04/10/18 20:25 INR 1.14 04/10/18 20:25 APTT 43.7 Seconds (26.9-38.3) H 04/10/18 20:25 - Constitutional Appears: No Acute Distress - Respiratory Exam Respiratory Exam: Rhonchi, Wheezes - GI/Abdominal Exam GI & Abdominal Exam: Soft, Normal Bowel Sounds - Rectal Exam Rectal Exam: Deferred - Neurological Exam Neurological Exam: Alert, Awake, Oriented x3 Assessment and Plan - Assessment and Plan (Free Text) Assessment: Pt is an 82 y.o. male who is admitted for COPD. Plan: Per Pulm, pt will need to continue on Solumedrol 40mg q12 Cardio on cons for CP Meds per MAR Will continue to follow
--- NOTE | 2018-04-13 14:18 | PN ---
DATE: 04/13/2018 PULMONARY PROGRESS NOTE REFERRING PHYSICIAN: Dr. eMgan Sheth. SUBJECTIVE: The patient is sitting up in bed. No acute distress. At this time, still having productive cough and shortness of breath on exertion. Early this morning nursing staff reports that the patient complained of chest pain; troponins and cardiac enzymes negative. EKG done unremarkable. Cardiology consult in place. During this exam, the patient had no complaint of chest pain. Reports feeling well except for having some productive coughing and shortness of breath with exertion. OBJECTIVE: GENERAL: No acute distress. VITAL SIGNS: Blood pressure 142/83, pulse 67, temperature 97.6, and oxygen saturation 94% on nasal cannula. HEENT: Moist mucous membranes. Crowded airway. NECK: Supple. No JVD. LUNGS: Scattered rhonchi; few wheezing. CARDIOVASCULAR: S1 and S2. ABDOMEN: Soft and nontender. No distention. No organomegaly. EXTREMITIES: No bilateral lower extremity edema. NEUROLOGIC: Awake, alert, and verbal. Follows commands. MEDICATIONS: Reviewed. Tylenol 650 mg every 4 hours p.r.n. for fever greater than 100.4, Tylenol 650 mg every 4 hours p.r.n. for moderate pain, DuoNeb 3 mL inhalation every 6 hours, Brovana 15 mcg every 12 hours, aspirin 81 mg daily, Zithromax 500 mg daily, Pulmicort 0.5 mg inhalation every 12 hours, Colace 100 mg daily, Pepcid 40 mg at bedtime, ferrous sulfate 324 mg Monday and Monday, Flonase nasal spray twice a day p.r.n., latanoprost at bedtime, Synthroid 112 mcg daily, Claritin 10 mg daily, Solu-Medrol 40 mg IV push every 12 hours, Singulair 10 mg at bedtime, XTANDI 160 mg daily and Hiprex 1 g twice a day. LABORATORY DATA: Reviewed. POC glucose 185 and troponin less than 0.01. EKG showed sinus rhythm with premature atrial complexes. IMPRESSION AND PLAN: Chronic obstructive lung disease, obesity, hypoventilation syndrome, chronic lung disease, recurrent urinary tract infection, stage IV metastatic prostate cancer, cardiomyopathy, anemia, and hypertension. Continue antibiotic therapy. Continue current steroid dosing; we will evaluate in the morning. Gastric prophylaxis and sequential compression devices to bilateral lower extremities for deep venous thrombosis prophylaxis. Due to the patient having history of anemia, requiring transfusion in the past. Continue continuous positive airway pressure use at bedtime, sleep apnea precaution, and head of bed elevated at 45 degrees. This patient was seen and examined with Dr. Bartlett. Discussed assessment and plan as described above. This patient was seen and examined with Nasim Mccoy, nurse practitioner. Discussed assessment and plan as described above. Thank you for this consult. We will follow with you. Nasim Mccoy APN Christy Bartlett MD
[2018-04-13] MEDS: METHENAMINE HIPPURATE 1 GM PO SCH (16:24)
[2018-04-13] MEDS: Latanoprost 2.5 ml Opht Soln OU SCH (21:25)
--- NOTE | 2018-04-14 00:28 | CON ---
DATE: 04/13/2018 LOCATION: The patient is in Room 561, Bed 1. REASON FOR CONSULTATION: Chest pain. HISTORY OF PRESENT ILLNESS: The patient is an 82-year-old male admitted with a history that he was having cough and expectoration and he had one episode of tightness of chest, which lasted approximately an hour. He denied any prior history of exertional angina or any cardiac problem. He is known to have COPD, prostate cancer with metastasis, hypertension, obstructive sleep apnea syndrome, and borderline diabetes. PAST MEDICAL HISTORY: Positive for COPD, hypertension, vertigo, diabetes mellitus, hypothyroidism, history of prostate cancer, history of urinary retention, and he is doing self catheterization. FAMILY HISTORY: Not significant. HABITS: He used to smoke 2 packs a day 30 years ago, stop 30 years. When he was young, he used to drink heavy, but now only socially. No substance abuse. ALLERGIES: THE PATIENT DENIES ANY ALLERGIES. HOME MEDICATIONS: The patient was on Ultram 50 mg p.o. t.i.d. p.r.n., Pyridine 100 mg p.o. every 8 hours p.r.n., Singulair 10 mg daily, Hiprex 1 g p.o. b.i.d., meropenem 1 gram IV every 8 hours, Synthroid 112 mcg daily, Claritin 10 mg daily, DuoNeb nebulizer therapy, self catheterization, Colace 100 mg daily, XTANDI 160 mg p.o. daily, Pepcid 40 mg p.o. at bedtime, and ferrous sulfate 324 mg p.o. daily. REVIEW OF SYSTEMS: All the systems reviewed, positives mentioned in the history, otherwise negative. PHYSICAL EXAMINATION VITAL SIGNS: Blood pressure 132/75, respirations 20, pulse 81, temperature 98.6. HEENT: Head is normocephalic. Eyes; pupils normal. Conjunctivae slightly pale. NECK: JVP low. Carotids equal. THORAX: AP diameter normal. LUNGS: No significant rales. CARDIOVASCULAR: S1 and S2. ABDOMEN: Soft and nontender. No organomegaly. EXTREMITIES: No clubbing. No cyanosis. LABORATORY DATA: WBC 4.7, hemoglobin 11.5, hematocrit 36.2, platelet 177. Sodium 139, potassium 4.6, BUN 13, creatinine 0.8. Random sugar 195. AST 21, ALT less than 6. Troponin x3 negative. Chest x-ray; large bullae in the right upper lobe consistent with severe emphysema. EKG; sinus arrhythmia PAC, left axis deviation, nonspecific ST-T changes. DIAGNOSES: Chest pain, respiratory tract infections, exacerbation of chronic obstructive pulmonary disease, hypertension, hypercholesterolemia, diabetes mellitus, cancer of the prostate with metastasis. Previous cardio workup; stress test in 08/22/2016, was normal with ejection fraction of 72%. Echo in 08/04/2016, showed normal size of the chamber, LV ejection fraction 68%, grade 1 abnormal relaxation pattern on RVSP 40 mmHg. PLAN: The patient is getting DuoNeb nebulizer therapy, aspirin 81 mg daily, ferrous sulfate 324 mg Mondays and Wednesdays, methylamine 1 gram b.i.d., Pepcid 40 mg at bedtime, Pulmicort 0.5 mg inhalation every 12 hours, Singulair 10 mg at bedtime, methylprednisolone 40 mg IV every 12 hours, levothyroxine 112 mcg daily. The patient's troponin x3 were negative. We will order an echocardiogram and in the meantime we will continue present therapy and we will follow with you. Christy Dawson MD
[2018-04-14] MEDS: Albuterol-Ipratrop 3 mg / 0.5 (3 ml) UD IH SCH ×3 (03:30→12:59)
--- NOTE | 2018-04-14 04:25 | PN ---
DATE: 04/13/2018 SUBJECTIVE: The patient is an 82-year-old male. The patient was seen and examined at the bedside on 04/13/2018. Looking comfortable. Cough is better. Shortness of breath is better. No nausea or vomiting. No headache. No dizziness. Chest pain is better. Early in the morning, the patient was complaining of chest pain, but resolved. Troponin is negative. EKG is normal, but seen by the solderer torch. PHYSICAL EXAMINATION: VITAL SIGNS: Temperature 97.6, pulse is 67, respiratory rate 16, blood pressure 140/83, and pulse oximetry 94%. HEENT: Head; normocephalic and atraumatic. Eyes; PERRLA, extraocular muscles intact, conjunctivae clear. Nose patent. NECK: Supple. No carotid bruit. No JVD or thyromegaly. CHEST: Bilaterally symmetrical. HEART: S1 and S2 positive. LUNGS: Clear to auscultation. ABDOMEN: Soft. Bowel sounds present. No organomegaly. EXTREMITIES: No edema. No cyanosis. NEUROLOGIC: The patient is awake and alert, moving all four extremities. No focal deficit. MEDICATIONS: Tylenol, DuoNeb, Brovana, Zithromax, aspirin, Pulmicort, Colace, Pepcid, Feosol, Flonase, levothyroxine, loratadine, and Solu-Medrol. LABORATORY DATA: White blood cells 4.7, hemoglobin 11.5, hematocrit 36.2, platelets 177. Sodium 139, potassium 4.6, BUN 13, creatinine 0.2, and glucose 138. ASSESSMENT AND PLAN: Mr. Sam Pantoja is an 82-year-old male with anemia, hyperglycemia, was admitted with chronic obstructive pulmonary disease exacerbation. Getting Solu-Medrol. Today, the patient started with chest pain. Cardiology consult was called. History of chronic obstructive pulmonary disease; prostate cancer with metastasis to the lungs; obesity; recurrent urinary tract infection, urinary infection maybe self catheterization; stage IV metastatic cancer; cardiomyopathy; hypertension. Gastric and deep vein thrombosis prophylaxes. History of anemia, recurrent blood transfusion. Discussion done with the patient and the patient's nursing staff. Repeat laboratories. We will follow up. Megan Sheth MD [facility] # [id number]
[2018-04-14] MEDS: Levothyroxine 112 MCG TAB PO SCH (06:49)
[2018-04-14 07:27] VITALS: O2SAT 96
--- NOTE | 2018-04-14 07:34 | CP.PCM.PN ---
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 Marion Objective - Vital Signs/Intake and Output Vital Signs (last 24 hours): Temp Pulse Resp BP Pulse Ox 97.4 F L 60 18 143/85 96 04/14/18 07:26 04/14/18 07:26 04/14/18 07:26 04/14/18 07:26 04/14/18 07:26 Intake and Output: 04/14/18 04/14/18 06:59 18:59 Intake Total 620 Balance 620 - Medications Medications: Current Medications Acetaminophen (Tylenol 325mg Tab) 650 mg PO Q4H PRN PRN Reason: Fever >100.4 F Acetaminophen (Tylenol 325mg Tab) 650 mg PO Q4H PRN PRN Reason: Pain, moderate (4-7) Albuterol/Ipratropium (Duoneb 3 Mg/0.5 Mg (3 Ml) Ud) 3 ml IH [id number] [facility] Last Admin: 04/14/18 03:30 Dose: 3 ml Arformoterol Tartrate (Brovana) 15 mcg IH [id number] [facility] Last Admin: 04/13/18 20:33 Dose: 15 mcg Aspirin (Ecotrin) 81 mg PO DAILY [facility] Last Admin: 04/13/18 09:44 Dose: 81 mg Azithromycin (Zithromax) 500 mg PO DAILY [facility] Last Admin: 04/13/18 09:44 Dose: 500 mg Budesonide (Pulmicort Respules) 0.5 mg IH [id number] [facility] Last Admin: 04/13/18 20:33 Dose: 0.5 mg Docusate Sodium (Colace) 100 mg PO DAILY [facility] Last Admin: 04/13/18 09:45 Dose: 100 mg Famotidine (Pepcid) 40 mg PO HS [facility] Last Admin: 04/13/18 21:24 Dose: 40 mg Ferrous Sulfate (Feosol) 324 mg PO WM [facility] Last Admin: 04/13/18 17:20 Dose: 324 mg Fluticasone Propionate (Flonase) 1 actuation NS BID PRN PRN Reason: Sinus symptoms Last Admin: 04/13/18 02:17 Dose: 1 spray Latanoprost (Xalatan Opht) 0 ml OU HS [facility] Last Admin: 04/13/18 21:25 Dose: 2.5 ml Levothyroxine Sodium (Synthroid) 112 mcg PO 0600 [facility] Last Admin: 04/14/18 06:49 Dose: 112 mcg Loratadine (Claritin) 10 mg PO DAILY [facility] Last Admin: 04/13/18 09:44 Dose: 10 mg Methylprednisolone (Solu-Medrol) 40 mg IVP Q12 [facility] Last Admin: 04/13/18 21:24 Dose: 40 mg Montelukast Sodium (Singulair) 10 mg PO HS [facility] Last Admin: 04/13/18 21:24 Dose: 10 mg Enzalutamide [Xtandi (] 160 Mg (Home Med)) 160 mg PO DAILY [facility] Last Admin: 04/13/18 09:45 Dose: Not Given Methenamine Hippurate [Hiprex] 1 Gm (Home Med) 1 gm PO BID [facility] Last Admin: 04/13/18 16:24 Dose: Not Given - Labs Labs: 04/12/18 07:00 04/12/18 07:00 PT 12.7 SECONDS (9.4-12.5) H 04/10/18 20:25 INR 1.14 04/10/18 20:25 APTT 43.7 Seconds (26.9-38.3) H 04/10/18 20:25 - Constitutional Appears: Non-toxic, No Acute Distress - Head Exam Head Exam: NORMAL INSPECTION, NORMOCEPHALIC - Eye Exam Eye Exam: Normal appearance Pupil Exam: NORMAL ACCOMODATION - ENT Exam ENT Exam: Mucous Membranes Moist, Normal Exam - Respiratory Exam Respiratory Exam: Decreased Breath Sounds, NORMAL BREATHING PATTERN - Cardiovascular Exam Cardiovascular Exam: +S1, +S2 Additional comments: CPAP in use - GI/Abdominal Exam GI & Abdominal Exam: Soft, Normal Bowel Sounds - Extremities Exam Extremities Exam: Full ROM, Normal Capillary Refill - Neurological Exam Neurological Exam: Alert, Awake, Oriented x3 - Psychiatric Exam Psychiatric exam: Normal Affect, Normal Mood - Skin Skin Exam: Dry, Normal Color, Warm Assessment and Plan - Assessment and Plan (Free Text) Assessment: An 82 year old male who came in to the ER for productive coughing and episode of chest pain. Chest pain/tightness lasted for about an hour. 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 Troponin normal. EKG no ischemia, Chest Xray showed right upper lobe severe emphysema. Stress done 2016-normal. 07/2016 Echo LVEF 68%. Will repeat echo. Rule out acute coronary syndrome, Emphysema, exacerbation of chronic obstructive pulmonary disease. Plan: Denies shortness of breath, no distress CPAP in use Denies chest pain For echo today to evaluate LV function Heart rate controlled Blood pressure controlled On ASA 81 mg daily,Synthroid 112mcg daily,Solumedrol 40 mg BID, Continue current treatment Continue current medications Will follow up Plan and treatment discussed with Dr. Marion
[2018-04-14] MEDS: Budesonide 0.5 mg/2 ml Inhal Susp UD IH SCH (08:26)
[2018-04-14] MEDS: Arformoterol 15 mcg/2 ml Inh Sol IH SCH (08:26)
[2018-04-14] MEDS: MethylPREDNISolone 40 mg Vial IVP SCH (09:19)
[2018-04-14] MEDS: METHENAMINE HIPPURATE 1 GM PO SCH (09:19)
[2018-04-14] MEDS: ENZALUTAMIDE 160 MG PO SCH (09:19)
--- NOTE | 2018-04-14 10:44 | PN ---
DATE: 04/14/2018 PULMONARY PROGRESS NOTE REFERRING PHYSICIAN: Megan Sheth MD SUBJECTIVE: The patient is seen lying in bed. CPAP mask in place. No acute distress. No overnight events reported. Reports the cough is still better, but is still present. Denies shortness of breath. No headache, rhinitis, chest pain, abdominal pain, nausea, vomiting, diarrhea, leg pain or leg swelling reported. OBJECTIVE: VITAL SIGNS: Blood pressure 143/85, pulse 60, temperature 97.4, and oxygen saturation 96% on room air. GENERAL: No acute distress. HEENT: Moist mucous membranes. Crowded airway. NECK: Supple. No JVD. LUNGS: Few rhonchi, minimal wheezing bilaterally. CARDIOVASCULAR: S1 and S2. ABDOMEN: Soft and nontender. No distention. No organomegaly. EXTREMITIES: No bilateral lower extremity edema. NEUROLOGIC: Awake, alert, and verbal. Follows commands. MEDICATIONS: Reviewed. Tylenol 650 mg every 4 hours p.r.n. for fever greater than 100.4, Tylenol 650 mg every 4 hours p.r.n. for moderate pain, DuoNeb 3 mL inhalation every 6 hours, Brovana 15 mcg every 12 hours, aspirin 81 mg daily, Zithromax 500 mg daily, Pulmicort 0.5 mg inhalation every 12 hours, Colace 100 mg daily, Pepcid 40 mg at bedtime, ferrous sulfate 324 mg Monday and Monday, Flonase nasal spray twice a day p.r.n., latanoprost eye drops at bedtime, Synthroid 112 mcg daily, Claritin 10 mg daily, Solu-Medrol 40 mg every 12 hours, Singulair 10 mg at bedtime, Hiprex 1 g twice a day, XTANDI 160 mg daily. LABORATORY DATA: Reviewed. No new labs. IMPRESSION AND PLAN: Chronic obstructive lung disease, hypoventilation syndrome, obesity, chronic lung disease, recurrent urinary tract infection, stage IV metastatic prostate cancer, cardiomyopathy, anemia, and hypertension. We will continue current steroid dosing at this time. The patient currently on antibiotic therapy. Gastric prophylaxis and sequential compression devices to bilateral lower extremities for deep venous thrombosis prophylaxis. The patient has a history of anemia, requiring transfusion in the past. Continue continuous positive airway pressure use at bedtime, sleep apnea precaution, and head of bed elevated at 45 degrees. This patient was seen and examined with Dr. Bartlett. Discussed assessment and plan as described above. This patient was seen and examined with Nasim Mccoy, nurse practitioner. Discussed assessment and plan as described above. Thank you for this consult. We will follow with you. Nasim Mccoy APN Christy Bartlett MD
--- NOTE | 2018-04-14 13:34 | CARD ---
APPROVED REPORT Date of service: 04/14/2018 EXAM: Two-dimensional and M-mode echocardiogram with Doppler and color Doppler. INDICATION Dyspnea Chest Pain 2D DIMENSIONS Left Atrium (2D)3.2 (1.6-4.0cm)IVSd1.4 (0.7-1.1cm) LVDd4.1 (3.9-5.9cm)PWd1.3 (0.7-1.1cm) LVDs2.7 (2.5-4.0cm)FS (%) 33.9 % LVEF (%)63.2 (>50%) M-Mode DIMENSIONS Aortic Root3.80 (2.2-3.7cm)Aortic Cusp Exc.1.50 (1.5-2.0cm) Aortic Valve AoV Peak Jtsbyfzu602.0cm/Gerard Peak GR.14mmHg Mitral Valve MV E Urwjldug55.2cm/sMV A Howqgcco15.4cm/sE/A ratio0.8 TDI Lateral E' Peak V7.60cm/sMedial E' Peak V5.95cm/sE/Lateral E'9.5 E/Medial E'12.1 Pulmonary Valve PV Peak Awqabjak27.4cm/sPV Peak Grad.3mmHg Tricuspid Valve TR Peak [id number]/sRAP [id number] Peak Gr.40mmHg [id number] LEFT VENTRICLE The left ventricle is normal size. There is mild concentric left ventricular hypertrophy. The left ventricular function is normal.EF-60-65% There is normal LV segmental wall motion. Transmitral Doppler flow pattern is Grade III-reversible restrictive diastolic dysfunction. No left ventricle thrombus noted on this study. There is no ventricular septal defect visualized. There is no left ventricular aneurysm. There is no mass noted in the left ventricle. RIGHT VENTRICLE The right ventricle is mildly dilated. There is normal right ventricular wall thickness. The right ventricular systolic function is normal. ATRIA The left atrium size is normal. The right atrium size is normal. The interatrial septum is intact with no evidence for an atrial septal defect. AORTIC VALVE The aortic valve is mildly to moderately thickened. The aortic valve is mildly to moderately sclerotic. There is trace aortic regurgitation. Aortc Sclerosis Mild There is no aortic valvular vegetation. MITRAL VALVE The mitral valve is thickened but opens well. Mitral regurgitation is trace to mild. There is no mitral valve stenosis. There is no evidence of mitral valve prolapse. TRICUSPID VALVE The tricuspid valve leaflets are thickened , but open well. There is trace to mild tricuspid regurgitation.RVSP-50 mm of Hg. There is mild pulmonary hypertension. There is no tricuspid valve stenosis. There is no tricuspid valve prolapse or vegetation. PULMONIC VALVE The pulmonic valve is normal in structure and function. There is trace pulmonic valvular regurgitation. There is no pulmonic valvular stenosis. GREAT VESSELS The aortic root is normal in size. The ascending aorta is normal in size. The pulmonary artery is normal. The IVC is normal in size and collapses >50% with inspiration. PERICARDIAL EFFUSION There is no pleural effusion. There is no pericardial effusion. <Conclusion> The left ventricle is normal size. There is mild concentric left ventricular hypertrophy. The left ventricular function is normal.EF-60-65% The right ventricle is mildly dilated. The right ventricular systolic function is normal. There is trace aortic regurgitation. Aortc Sclerosis Mild Mitral regurgitation is trace to mild. There is trace to mild tricuspid regurgitation.RVSP-50 mm of Hg. There is mild pulmonary hypertension. There is trace pulmonic valvular regurgitation. The IVC is normal in size and collapses >50% with inspiration. No vegetation or thrombus noted.
[2018-04-14 14:28] VITALS: BP 135/76; PULSE 75; RESP 16; TEMP 98.5
--- NOTE | 2018-04-14 15:05 | RAD ---
Date of service: 04/14/2018 HISTORY: Follow-up for pneumonia COMPARISON: No prior. TECHNIQUE: Chest PA and lateral FINDINGS: LINES AND TUBES: None. LUNG AND PLEURA: The lungs are well inflated. There are apparent nodular densities in both upper lobes. There is redemonstration of a large bulla in the right upper lobe. HEART AND MEDIASTINUM: Mild cardiomegaly and prominent central vasculature. There are aortic atherosclerotic calcifications present. The hilar and mediastinal contours are within normal limits. SKELETAL STRUCTURES: The bony structures are within normal limits for the patient's age. VISUALIZED UPPER ABDOMEN: Normal. OTHER FINDINGS: None. IMPRESSION: No lobar pneumonia. Apparent nodular densities in both lungs. Correlation with CT scan of the thorax without intravenous contrast is recommended for further evaluation. Emphysema.
== END 2018-04-14 16:08 | disposition home or self-care (01) | DRG 191 ==
LOC: ED 19:42 → INTOOBSV 21:08 → ERH 21:08 → 5RNO 04-11 01:10 → OBSVTOIN 04-12 11:44
PROVIDERS: ADMIT Internal Medicine; ATTEND Internal Medicine
PROC: 5A09357 Assistance with Respiratory Ventilation, Less than 24 Consecutive Hours, Continuous Positive Airway Pressure (ICD-10-PCS; principal; 2018-04-11)
DX: J43.9 Emphysema, unspecified (principal); T83.511A Infection and inflammatory reaction due to indwelling urethral catheter, initial encounter; N39.0 Urinary tract infection, site not specified; C78.00 Secondary malignant neoplasm of unspecified lung; I42.9 Cardiomyopathy, unspecified; E66.2 Morbid (severe) obesity with alveolar hypoventilation; I10 Essential (primary) hypertension; H40.9 Unspecified glaucoma; E11.9 Type 2 diabetes mellitus without complications; E03.9 Hypothyroidism, unspecified; E78.00 Pure hypercholesterolemia, unspecified; D64.9 Anemia, unspecified; R07.9 Chest pain, unspecified; R33.9 Retention of urine, unspecified; Y84.8 Other medical procedures as the cause of abnormal reaction of the patient, or of later complication, without mention of misadventure at the time of the procedure; Z85.46 Personal history of malignant neoplasm of prostate; Z87.891 Personal history of nicotine dependence; Z79.82 Long term (current) use of aspirin; Z87.440 Personal history of urinary (tract) infections; Z79.890 Hormone replacement therapy; Z68.29 Body mass index [BMI] 29.0-29.9, adult

== ENCOUNTER 2018-04-28 08:32 | Inpatient (IN) | payer MEDICARE, MEDICAID | END 2018-04-30 13:44 | disposition home or self-care (01) | LOC: ED 08:32 → ERH 11:41 → 2RNO 13:43 ==